=== PATIENT | male | born 1960 | race Caucasian/White ===

== ENCOUNTER 2024-08-09 12:35 | Inpatient (IN) | payer MEDICARE, SELFPAY ==
[2024-08-09] VITALS (8 sets, daily range): BP systolic 120–158; BP diastolic 67–78; PULSE 63–86; RESP 18–94; TEMP 36.8–38.2; O2SAT 93–96; BMI 38.5
--- NOTE | 2024-08-09 12:45 | EKG_ITS ---
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
--- NOTE | 2024-08-09 12:45 | XR_ITS ---
Examination: AP chest single view Technique one AP portable semiupright chest single view Exam date and time: July 09, 2025 1350 hours INDICATIONS: Shortness of breath beginning this week FINDINGS: Mild prominence cardiac contour Mild vascular congestion. No lobar pneumonia or pulmonary edema IMPRESSION: Mild vascular congestion
--- NOTE | 2024-08-09 12:45 | EDNOTE_ITS ---
ED General RME/HPI General Chief complaint: Weakness Stated complaint: WEAKNESS Time Seen by Provider: 08/09/24 12:44 Arrival date/time: 08/09/24 12:35 CC: Weakness, inability to walk x 4 days HPI ongoing for the past 2 weeks recently moved here from [place], has no PCP did not bring any medications. Denies chest pain shortness of breath Patient states he is a diabetic hypertension congestive heart failure, hyperlipidemia and has a heart attack in the past, is on Eliquis. Also takes spironolactone and Lasix. Related Data Allergies Allergy/AdvReac Type Severity Reaction Status Date / Time atorvastatin Allergy Verified 08/09/24 13:49 lisinopril Allergy Verified 08/09/24 13:49 sulfamethoxazole Allergy Verified 08/09/24 13:49 [From Bactrim] trimethoprim [From Bactrim] Allergy Verified 08/09/24 13:49 Review of Systems Review of Systems Narrative Review of Systems: GEN: No fever, no chills, no weight loss EYES: No discharge, no visual changes, no pain HEENT: No ear pain, no congestion, no sore throat PULM: No shortness of breath, no cough, no congestion CV: No chest pain, no dyspnea on exertion, no palpitations GI: No nausea, no vomiting, no diarrhea, no pain, no constipation : No frequency, no urgency, no dysuria MUSC/SKEL: No joint pain, no back pain SKIN: No rash PSYCH: No hallucinations, no depression HEME/LYMPH: No easy bleeding or bruising tendencies NEURO: + weakness, no headache ED Exam Narrative Physical exam: [General: Morbidly obese, disheveled, ill kempt, but not in any acute distress Head normocephalic HEENT: Within acceptable limits Neck is supple nontender Chest equal chest rise nontender to palpation Respiratory: Clear to auscultation no wheezes crackles or rubs CV: Rate rhythm is regular no murmurs rubs or clicks Abdomen is distended secondary to body habitus soft nontender no masses positive bowel sounds all 4 quadrants Back: No CVA tenderness no spinous process tenderness from cervical spine thoracic and lumbar spine Skin: Intact no petechiae rash induration ulceration or crepitus Extremities: Moving lower extremities weakly, significant pitting edema up to proximal lower leg bilaterally.. Moving upper extremities without complication Neuro: Awake alert oriented x3 Glascow coma 15 no focal deficits] Course Quality Measures none Orders Category Date Time Status Bedside Influenza A&B Antigen Test NOW Care 08/09/24 13:53 Completed EKG (ED ONLY) *Do not use* NOW Care 08/09/24 12:45 Completed EKG (ED Only) Stat Exams 08/09/24 12:45 Draft XR chest 1V Stat Exams 08/09/24 12:45 Completed B-Type Natriuretic Peptide Stat Lab 08/09/24 13:22 Completed CBC Stat Lab 08/09/24 13:22 Completed Comprehensive Metabolic Panel Stat Lab 08/09/24 13:22 Completed Drug Screen,Urine Stat Lab 08/09/24 13:32 Completed LDH (Lactate Dehydrogenase) Stat Lab 08/09/24 13:22 Completed Magnesium Stat Lab 08/09/24 13:22 Completed Partial Thromboplastin Time Stat Lab 08/09/24 13:22 Completed Prothrombin Time with INR Stat Lab 08/09/24 13:22 Completed Troponin I Stat Lab 08/09/24 13:22 Completed Urinalysis Stat Lab 08/09/24 13:32 Completed Vital Signs Vital signs: Vital Signs Temperature 100.8 F H 08/09/24 12:44 Pulse Rate 86 08/09/24 12:44 Respiratory Rate 19 08/09/24 12:44 Blood Pressure 137/72 H 08/09/24 12:44 Pulse Oximetry (%) 93 L 08/09/24 12:44 Oxygen Delivery Method Room Air 08/09/24 12:44 [facility] Patient data External records reviewed:: [facility] previous records and EMS form Clinical information provided by:: patient and EMS Social determinants that could affect healthcare access:: none Patient has the following chronic illnesses:: Diabetes hypertension hyperlipidemia CHF history of LA on Eliquis. How is presenting disease/condition affected by chronic disease/condition?: e xacerbated by Evaluation data The following diagnostics were reviewed and interpreted by me:: lab results, radiology exam(s) and EKG tracing(s) Lab and/or radiology exams considered but not ordered:: EKG performed at 1409 shows a ventricular rate of 61 QRS of 82 QTc of 378 A-fib with conduction suppression no old EKG for comparison. CBC shows no leukocytosis H&H of 11 and 36 no thrombocytopenia CMP shows a sodium 131 potassium of 4.2 chloride 99 CO2 22.9 BUN 29 creatinine 1.6 glucose of 228. Influenza A positive Urine is negative for UTI or other abnormal finding UDS is negative Chest x-ray as interpreted by me reveals a borderline CT ratio for potential cardiomegaly no acute or pronounced infiltrates or effusions identified. Interpretation Summary: ARIANA, with mild distribution of fluids including lower extremity edema. I believe this patient return to the ER in 12 hours if discharged in the same condition he is as he is not on ambulatory with significant edema in his lower extremities. This patient needs to be diuresed and his ARIANA remedied. The patient's case discussed with Dr. Whaley, resident for Dr. Oliveira who agrees to accept the patient for admission. Medications Medications considered but not ordered:: None Medication administrations:: None Consultations Consultation(s) initiated? (list below): No Diagnosis Differential Diagnosis ED Complaint MDM: ARIANA lower extremity Dame edema CHF pneumonia Most likely diagnosis given after review of the tests above:: ARIANA lower extremity edema Admission Indicated Admission indicated?: indicated Explain why admission is indicated or not indicated:: Further medical management Admission Request Was there a request for admission?: No Disposition Plan Disposition Plan: Admit Medical Decision Making Differential Diagnosis Differential Diagnosis: ARIANA lower extremity Dame edema CHF pneumonia Lab Data 08/09/24 13:22 08/09/24 13:22 Labs: Lab Results 08/09/24 08/09/24 Range/Units 13:22 13:32 WBC 9.1 (3.8-10.6) Thou/mm3 RBC 4.14 L (4.50-5.90) Miln/mm3 Hgb 11.4 L (13.5-16.0) g/dL Hct 36.0 L (41.0-53.0) % MCV 87 (80-100) fL MCH 27.5 (25.0-35.0) pg MCHC 31.7 (31.0-37.0) g/dl RDW Std Deviation 45.7 H (35.1-43.9) fL Plt Count 208 (140-440) Thou/mm3 Neut % (Auto) 84 H (37-80) % Lymph % (Auto) 6 L (10-50) % [place] % (Auto) 9 (0-12) % Eos % (Auto) 0 (0-10) % Baso % (Auto) 0 (0-2.5) % Neut # (Auto) 7.7 (1.8-7.7) Thou/mm3 Lymph # (Auto) 0.5 L (1.0-4.8) Thou/mm3 [place] # (Auto) 0.9 H (0.0-0.8) Thou/mm3 Eos # (Auto) 0.0 (0.0-0.5) Thou/mm3 Baso # (Auto) 0.0 (0.0-0.2) Thou/mm3 Immature Gran # (Auto) 0.03 H (0.00-0.00) Thou/mm3 Absolute Nucleated RBC 0.00 (0.00-0.00) Thou/mm3 Immature Gran % 0 (0-0) % Nucleated RBC % 0 (0) /100 WBC PT 11.7 (9.0-12.2) Seconds INR 1.1 (0.9-1.3) APTT 33.3 (22.0-36.0) Seconds Sodium 131 L (136-145) mMol/L Potassium 4.2 (3.4-5.1) mMol/L Chloride 99 (98-107) mMol/L Carbon Dioxide 22.9 (20.0-31.0) mMol/L Anion Gap 9 (7-16) BUN 29 H (9-23) mg/dL Creatinine 1.6 H (0.6-1.3) mg/dL Estim Creat Clear Calc 68.4 (>60) mL/min eGFR 48 L (60 - ) See Note BUN/Creatinine Ratio 18 (12-20) Ratio Glucose 228 H (74-106) mg/dL Calculated Osmolality 275 (275-295) Calcium 8.5 (8.3-10.6) mg/dL Corrected Calcium 8.6 (8.5-10.1) mg/dL Magnesium 2.3 (1.6-2.6) mg/dL Total Bilirubin 0.7 (0.3-1.2) mg/dL AST 17 (0-34) U/L ALT 12 (10-49) U/L Alkaline Phosphatase 43 L (46-116) U/L Lactate Dehydrogenase 256 H (120-246) U/L Troponin I 0.038 (0.0-0.045) ng/mL B-Natriuretic Peptide 275 H (0-100) pg/mL Total Protein 6.9 (5.7-8.2) gm/dL Albumin 3.9 (3.4-4.8) gm/dL Globulin 3.0 (2.3-3.5) gm/dL Albumin/Globulin Ratio 1.3 (1.2-2.2) Ur Collection Type Clean Catch Urine Color Yellow (Lt Yel-Yel) Urine Clarity Clear (Clear/Hazy) Urine pH 6.0 (5.0-7.0) Ur Specific [place] 1.025 (1.001-1.035) Urine Protein Trace (Neg - Trace) Urine Glucose (UA) 4+ A (Negative) Urine Ketones Negative (Negative) Urine Blood Negative (Negative) Urine Nitrite Negative (Negative) Urine Bilirubin Negative (Negative) Urine Urobilinogen (Auto) Negative (0.0-1.0) mg/dL Ur Leukocyte Esterase Negative (Negative) Urine RBC 3 (0-3) /hpf Urine WBC 1 (0-5) /hpf Ur Squamous Epith Cells < 1 (0-5) /hpf Urine Bacteria Rare (None) Urine Opiates Screen Negative (Negative) Urine Fentanyl Screen Negative (Negative) Ur Barbiturates Screen Negative (Negative) U Amphetamin/Meth Scrn Negative (Negative) U Benzodiazepines Scrn Negative (Negative) U Cocaine Metab Screen Negative (Negative) U Marijuana (THC) Screen Negative (Negative) Discharge Plan Plan Patient Disposition: Other Care w/in Hosp ([facility]) Patient condition on transfer: Stable Prescriptions/Referrals Referrals: Mode Guerrero MD [Physician] - In 1 week No Primary/Family,Physician [Primary Care Provider] - In 1 week Problem List Clinical Impression: ARIANA (acute kidney injury), Bilateral leg edema, Physical deconditioning, Obesity, Hyperglycemia due to diabetes mellitus Patient/Caregiver Discharge Instructions Print Language: Setswana Stand Alone Forms: Naida Award Info., Patient Portal Info Letter MARISEL/MONET Supervising Physician PA/MONET Supervising Physician: Priyank Dias ENP
[2024-08-09 13:32] LABS: Basophils % (Auto) 0 % (0-2.5); Eosinophils % (Auto) 0 % (0-10); Hemoglobin 11.4 g/dL (13.5-16.0); Immature Granulocytes % (Auto) 0 % (0-0); Immature Granulocytes Auto 0.03 Thou/mm3 (0.00-0.00); Lymphocytes # (Auto) 0.5 Thou/mm3 (1.0-4.8); Lymphocytes % (Auto) 6 % (10-50); Mean Corpuscular HGB Conc 31.7 g/dl (31.0-37.0); Mean Corpuscular Hemoglobin 27.5 pg (25.0-35.0); Mean Corpuscular Volume 87 fL (80-100); Monocytes # (Auto) 0.9 Thou/mm3 (0.0-0.8); Monocytes % (Auto) 9 % (0-12); Neutrophils # (Auto) 7.7 Thou/mm3 (1.8-7.7); Neutrophils % (Auto) 84 % (37-80); Nucleated Red Blood Cell % 0 /100 WBC (0); Platelet Count 208 Thou/mm3 (140-440); RDW Standard Deviation 45.7 fL (35.1-43.9); Red Blood Count 4.14 Miln/mm3 (4.50-5.90); White Blood Count 9.1 Thou/mm3 (3.8-10.6)
[2024-08-09 13:47] LABS: INR 1.1 (0.9-1.3); Partial Thromboplastin Time 33.3 Seconds (22.0-36.0); Prothrombin Time 11.7 Seconds (9.0-12.2)
[2024-08-09 13:48] LABS: B-Type Natriuretic Peptide 275 pg/mL (0-100)
[2024-08-09 14:01] LABS: Collection Type, Urine Clean Catch
[2024-08-09 14:12] LABS: Alanine Aminotransferase 12 U/L (10-49); Albumin, Serum 3.9 gm/dL (3.4-4.8); Albumin/Globulin Ratio 1.3 (1.2-2.2); Alkaline Phosphatase 43 U/L (46-116); Anion Gap 9 (7-16); Aspartate Amino Transferase 17 U/L (0-34); BUN/Creatinine Ratio 18 Ratio (12-20); Bilirubin,Total 0.7 mg/dL (0.3-1.2); Blood Urea Nitrogen 29 mg/dL (9-23); Calcium 8.5 mg/dL (8.3-10.6); Calcium (Corrected) 8.6 mg/dL (8.5-10.1); Carbon Dioxide 22.9 mMol/L (20.0-31.0); Chloride 99 mMol/L (98-107); Creatinine (Component) 1.6 mg/dL (0.6-1.3); Estimated Creatinine Clearance 68.4 mL/min (>60); Glucose 228 mg/dL (74-106); LDH (Lactate Dehydrogenase) 256 U/L (120-246); Magnesium 2.3 mg/dL (1.6-2.6); Osmolality,Calculated 275 (275-295); Potassium 4.2 mMol/L (3.4-5.1); Sodium 131 mMol/L (136-145); Total Protein 6.9 gm/dL (5.7-8.2); Troponin I 0.038 ng/mL (0.0-0.045); eGFR 48 See Note
[2024-08-09 14:14] LABS: Bacteria,Urine Rare; Bilirubin,Urine Negative (Negative); Blood,Urine Negative (Negative); Clarity,Urine Clear (Clear/Hazy); Color,Urine Yellow (Lt Yel-Yel); Glucose, Urine 4+ (Negative); Ketones,Urine Negative (Negative); Leukocyte Esterase,Urine Negative (Negative); Nitrite,Urine Negative (Negative); Protein,Urine Trace (Neg - Trace); RBC,Urine 3 /hpf (0-3); Specific Gravity,Urine 1.025 (1.001-1.035); Squamous Epithelial Cell,Urine < 1 /hpf (0-5); Urobilinogen,Urine Negative mg/dL (0.0-1.0); WBC,Urine 1 /hpf (0-5)
[2024-08-09 14:16] LABS: Amphetamine/Methamp Scrn,U Negative (Negative); Barbiturate Screen,Urine Negative (Negative); Benzodiazepines Screen,Urine Negative (Negative); Benzoylecgonine Screen, Ur Negative (Negative); Fentanyl Screen,Urine Negative (Negative); Opiate Screen,Urine Negative (Negative); THC Screen,Urine Negative (Negative)
--- NOTE | 2024-08-09 15:25 | ECHO_ITS ---
Transthoracic Echo Report Ht (in): 74 Wt (lb): 300 Exam Location: Portable Status: Emergency Enrollment Services Dean: Christina Schultz Indications: Procedure Performed: BP: 145 / 71 HR: 71 Rhythm: Atrial fibrillation Technical Quality: Technically difficult study MEASUREMENTS (Male / Female) Normal Values 2D ECHO LV Diastolic Diameter PLAX 5.1 cm 4.2 - 5.9 / 3.9 - 5.3 cm LV Systolic Diameter PLAX 3.6 cm IVS Diastolic Thickness 1.3 cm 0.6 - 1.0 / 0.6 - 0.9 cm LVPW Diastolic Thickness 1.3 cm 0.6 - 1.0 / 0.6 - 0.9 cm LV Relative Wall Thickness 0.5 LVOT Diameter 2.2 cm Ascending Aorta Diameter 3.2 cm DOPPLER AV Peak Velocity 263.8 cm/s AV Peak Gradient 27.8 mmHg AV Mean Gradient 11.0 mmHg AV Velocity Time Integral 40.0 cm LVOT Peak Velocity 107.0 cm/s LVOT Peak Gradient 4.6 mmHg LVOT Velocity Time Integral 18.7 cm LVOT Cardiac Index 1858.1 cm?/min?m? AV Area Cont Eq vti 1.8 cm? AV Area Cont Eq pk 1.5 cm? MV Peak Velocity 226.0 cm/s MV Peak Gradient 20.4 mmHg MV Mean Velocity 118.5 cm/s MV Mean Gradient 7.0 mmHg MV Area PHT 4.0 cm? MR Peak Velocity 652.0 cm/s MR Peak Gradient 170.0 mmHg Mitral E Point Velocity 117.0 cm/s Mitral A Point Velocity 1.1 cm/s Mitral E to A Ratio 102.6 LV E' Lateral Velocity 16.8 cm/s Mitral E to LV E' Lateral Ratio 7.0 LV E' Septal Velocity 13.5 cm/s Mitral E to LV E' Septal Ratio 8.7 FINDINGS Left Ventricle Normal left ventricular size, systolic function with no obvious regional wall motion abnormalities. Mild LVH. The ejection fraction is visually estimated at 55-60%. Right Ventricle The right ventricle is normal in size and systolic function. Left Atrium The left atrium is normal by two-dimensional, color flow and Doppler imaging with no structural abnormalities, no thrombus formation present. Right Atrium The right atrium is normal by two-dimensional imaging, color flow and Doppler imaging with no struct ural abnormalities, no thrombus formation present. Atrial Septum The interatrial septum appears normal with no evidence of a shunt. Aorta The aorta is normal by two-dimensional, color flow and Doppler interrogation. Mitral Valve The mitral valve is normal by two-dimensional, color flow and Doppler interrogation. There is mild m itral valve regurgitation. Aortic Valve The aortic valve is trileaflet. Mild stenosis, max 33mmHg, vmax 2.8m/s. There is mild aortic valve regurgitation. Tricuspid Valve The tricuspid valve is normal by two-dimensional, color flow and Doppler interrogation. There is tra ce tricuspid valve regurgitation. Pulmonic Valve The pulmonic valve is not well visualized. There is no significant pulmonic valve regurgitation. Vessels The pulmonary artery appears normal. The inferior vena cava pulmonary and hepatic veins appear dilat ed. Pericardium The pericardium is normal by two-dimensional imaging. There is no significant pericardial effusion. CONCLUSIONS Indication: CHF Poor and suboptimal images due to body habitus. Limited images. Normal LV size and function. Mild LVH. Estimated EF 55-60%. Cannot determine diastolic function due to AFib. Mildly dilated RV and normal RV function. Could not visualize TR or tricuspid valve well. Unable to estimate RVSP and PAH. All valves poorly visulaized. Mild AV stenosis, max gradient 33mmHg, vmax 2.8m/s. Mild AI and Mild A I IVC dilated. Nacho Yoon (Electronically Signed) Final Date: 10 August 2024 15:25
[2024-08-09] MEDS: PANTOPRAZOLE INJ 40 MG VIAL IVP (15:52)
[2024-08-09] MEDS: FUROSEMIDE INJ 10 MG/ML 4ML VIAL 40 MG IVP (15:59)
--- NOTE | 2024-08-09 16:14 | ESHP_ITS ---
<Statement entered by Daniel Cox MD - 08/09/24 16:39> This patient is a 64-year-old male with past medical history of depression with psychotic features, hypertension, hyperlipidemia,? CHF, A-fib on Eliquis, diabetic presented to the ED today after recently moving from [place] with chief complaint of weakness and bilateral lower extremity pitting edema and cough with wheezing. Patient was found to have influenza pneumonia and was started on Tamiflu. Initial vitals were stable. Patient was saturating well on 4 L NC. Patient has gross bilateral lower extremity edema. Labs revealed hemoglobin and white count stable. Blood sugars were elevated. Patient also had possible ARIANA although we do not have a baseline creatinine BUN 29 and creatinine 1.6. Sodium 131. Troponin I was 0.038. EKG showed A-fib rate controlled. Patient is admitted for CHF and influenza pneumonia workup. Patient with continued on Lasix 40 mg IV once daily, home medications were reconciled for depression. Eliquis is on hold given concern for pulmonary nodules most likely seen on chest x-ray however chest x-ray report did not document that. Will likely workup with CT chest tomorrow once kidney functions improves. Cocci IgM was ordered. Sputum cultures were ordered. Patient will be receiving breathing treatments Mucinex DM. Chest PT has been ordered. All labs and orders were reviewed. I saw and examined the patient, and I agree with current management stated by Dr Trudy MD,PGY1. Plan of care was discussed with the attending physician and resident physician. Disclaimer: Despite multiple revisions, due to the dictation software being used, the document bellow may not be free of grammatical errors including phonetic/typographic errors. However, this does not deter from our commitment to providing health care in the patient's best interest in mind. Dr. Brooke MD, PGY 2 Documentation for date of: 08/09/24 HPI History of Present Illness History of present illness: CC: cough and SOB Patient is a 64-year-old male with a past medical history of hypertension, hyperlipidemia, CAD, diabetes mellitus type 2 insulin-dependent, CHF (unknown ejection fraction), atrial fibrillation, history of seizures, who presented to the emergency room with acute increasing dyspnea and increasing cough. Patient stated that he has been having increasing pleuritic chest pain secondary to productive cough. Patient stated his cough is productive. Come into the emergency room today after being unable to reach the restroom because of increasing shortness of breath. Patient denied typically here with increasing wheezing. Patient denied any sick contacts. Increased perspiration. Increased orthopnea. Increasing shortness of breath. Negative paroxysmal nocturnal orthopnea. Positive for diarrhea. Increased bilateral swelling. History of BPH. History of depression. Admitted on 08/09/2024 for CHF exacerbation and influenza A. ER course: Patient's vital in the emergency room and temperature of 100.8, non septic with normal respiratory and heart rate. Blood pressure within normal range 137/72. ARIANA noted BUN 29, creatinine 1.6, GFR 48. Hyperglycemic to 28. WBC count 9.1. Anemia noted, normal hemoglobin 11.4, and hematocrit 36.0. Lactate dehydrogenase 256 but calcium within normal range. Troponin slightly elevated 0.038. BNP 275. EKG A-fib with old OH. UA positive for glucose. No medication given in ER. PMH: -Diabetes Mellitus Type 2 insulin dependent -Hypertension -Hyperlipidemia -CAD/OH -CHF Lasix 40 IV push daily added, currently holding home medication of spironolactone given unknown ejection fraction. -Atrial fibrillation on Eliquis (currently holding given possible CT-guided biopsy for nodules noted on chest x-ray) -COPD, recent diagnosis no medication on board -History of seizures -History of depression -BPH -Spinal Stenosis s/p surgery Past Surgical History: -Appendectomy -Disc repair secondary to spinal stenosis Home Medication: -Rosuvastin ? -Losartan 25 mg -Lasix 40 mg QDay -Spironolactone -Lantus 12 units -Januvia -Ozemic 0.5 sub q once a week -Jardiance 25 mg once a day -Tamsulin 0.4 -Risperidone 6 mg HS -Furosemide 40 mg Qday -Eliquis 5 mg Qday -Mirtazapine 45 mg HS -Paroxetine 40 mg PO -Topiramate 50 g HS Social History: [id number] history, smoked for 20 years about 2 packs/day, quit 15 years ago Denied alcohol use Denied illicit drug use Allergies: Atorvastatin Lisinopril Bactrim Code Status: Full code Review of Systems Review of Systems Narrative Review of Systems: General appearance: YES weight loss secondary to ozemic us, NO fatigue, YES weakness, NO fever, NO chills, NO night sweats, YES cough Skin: NO rash, NO itching, NO sores, NO moles HEENT: NO Trauma, NO nausea, NO vomiting, NO visual changes, NO blurry vision, NO double vision, NO tinnitus, NO vertigo, NO ear discharge, NO rhinorrhea, NO stuffiness, NO sneezing, NO allergy, NO epistaxis. NO Hoarseness, NO sore throat, NO swollen neck. Cardiac: NO Palpitations, YES dyspnea on exertion, YES orthopnea, NO paroxysmal nocturnal dyspnea, YES edema Respiratory: YES Shortness of Breath, YES Wheezing, YES Cough, NO Sputum, NO hemoptysis GI:NO appetite, NO nausea, NO vomiting, NO dysphagia, NO changes in bowel frequency, NO stool color, NO diarrhea, NO constipation, NO hemetemesis, NO hemorrhoids, NO melena, NO hematechezia, NO abdominal pain, NO jaundice Renal: NO frequency, NO hesitancy, NO urgency, NO hematuria, NO nocturia, NO incontinence MSK: NO muscle weakness, NO gout, NO arthritis, NO muscle stiffness Neuro: NO headaches, NO tremors, NO weakness, NO paralysis, NO seizures, NO loss of consciousness, NO numbness. Hem: NO anemia, NO easy bruising/bleeding, NO petechiae, NO purpura Endo: NO heat/cold intolerance, NO excessive sweating, NO polyuria, NO polydipsia, NO polyphagia, NO thyroid problems, YES diabetes Pysch: NO mood, NO anxiety, NO depression Exam Vital Signs Temp Pulse Resp BP Pulse Ox O2 Del Method 98.3 F 68 19 158/76 H 94 L Room Air 08/09/24 14:19 08/09/24 15:59 08/09/24 14:19 08/09/24 15:59 08/09/24 14:19 08/09/24 14:19 Narrative Exam General Appearance: Alert & Oriented X3, well-nourished Male who is lying in bed in no acute distress, rash noted near supra-pubic region, macular, non-puritic HEENT: Skull symmetrical and atraumatic. Conjunctivae pink and moist. Pupils equal, round, reactive to light and accommodation (PERRL). External ear without lesion or discharge. Straight, nares patient, mucosa pink, no discharge. Cardio: Normal Rate and Irregular with S1 and S2 heart sounds. Possible blowing murmur noted. No bruits on carotid auscultation. Edema +3 bilateral. NO JVD noted. Lungs: Symmetric expansion. Chest and back non-tender. Decreased breath sounds vesicular with crackles and Increased wheezing Abdomen: Non-tender, Non-distended, Normal Reactive Bowel Sounds Neuro: Alert, cooperative, oriented to person, place, and time. Speech clear. CN grossly intact. Upper motor strength 5/5 and Lower motor strength 5/5. Sensation intact. Results: Labs 08/09/24 13:22 08/09/24 13:22 Labs: Short CBC 08/09/24 Range/Units 13:22 WBC 9.1 (3.8-10.6) Thou/mm3 Hgb 11.4 L (13.5-16.0) g/dL Hct 36.0 L (41.0-53.0) % Plt Count 208 (140-440) Thou/mm3 BMP 08/09/24 13:22 Sodium 131 L Potassium 4.2 Chloride 99 Carbon Dioxide 22.9 BUN 29 H Creatinine 1.6 H Glucose 228 H Calcium 8.5 Cardiac Enzymes 08/09/24 Range/Units 13:22 Troponin I 0.038 (0.0-0.045) ng/mL Liver Function 08/09/24 Range/Units 13:22 Total Bilirubin 0.7 (0.3-1.2) mg/dL AST 17 (0-34) U/L ALT 12 (10-49) U/L Alkaline Phosphatase 43 L (46-116) U/L Albumin 3.9 (3.4-4.8) gm/dL Urine 08/09/24 Range/Units 13:32 Urine Color Yellow (Lt Yel-Yel) Urine Clarity Clear (Clear/Hazy) Urine pH 6.0 (5.0-7.0) Ur Specific [place] 1.025 (1.001-1.035) Urine Protein Trace (Neg - Trace) Urine Glucose (UA) 4+ A (Negative) Quality Measures Quality Measures none Medications Home Medications and Allergies Allergies Allergy/AdvReac Type Severity Reaction Status Date / Time atorvastatin Allergy Verified 08/09/24 13:49 lisinopril Allergy Verified 08/09/24 13:49 sulfamethoxazole Allergy Verified 08/09/24 13:49 [From Bactrim] trimethoprim [From Bactrim] Allergy Verified 08/09/24 13:49 Visit Medications Acetaminophen (Acetaminophen 325 Mg Tablet) 650 mg PO Q6H PRN PRN Reason: Mild Pain 1-3 or Fever >100.4 Stop: 09/08/24 15:19 Hydrocodone Bitart/Acetaminophen (Hydrocodone/Apap 5/325 Tablet) 1 tab PO Q4HR PRN PRN Reason: PAIN SCALE 4-6 (Moderate Stop: 08/14/24 15:19 Albuterol/Ipratropium (Albuterol/Ipratropium (Duoneb) Rt Aspen 3 Ml Nebu) 3 ml INH Q6HRRT ASHWIN Stop: 09/08/24 18:59 Amlodipine Besylate (Amlodipine Besylate 5 Mg Tablet) 5 mg PO QDAY ASHWIN Stop: 09/09/24 08:59 Dextrose (Dextrose 50%-Water Inj 50 Ml Syringe) 25 ml IV Q15MIN PRN PRN Reason: BG 50-70 responsive npo pt Stop: 09/08/24 15:30 Dextrose (Dextrose 50%-Water Inj 50 Ml Syringe) 50 ml IV Q15MIN PRN PRN Reason: BG <50 OR BG <70 & pt unresponsive Stop: 09/08/24 15:30 Furosemide (Furosemide Inj 10 Mg/Ml 4ml Vial) 40 mg IVP QDAY ASHWIN Stop: 09/08/24 15:44 Last Admin: 08/09/24 15:59 Dose: 40 mg Glucagon (Glucagon Inj 1 Mg Vial) 1 mg IM Q15MIN PRN PRN Reason: BG <70, and no IV access Guaifenesin/Dextromethorphan (Guaifenesin/Dm Tablet) 1 each PO Q4HR PRN PRN Reason: COUGH Stop: 09/08/24 15:18 Insulin Glargine (Insulin Glargine (Lantus) 5 Unit/0.05 Ml (Per 5 Units)) 12 unit SC HS [facility] Stop: 09/08/24 20:59 Insulin Human Lispro (Insulin Lispro (Admelog) 1 Unit/0.01 Ml Unit) 0 unit SC [facility]; Protocol Stop: 09/08/24 16:59 Mirtazapine (Mirtazapine 15 Mg Tablet) 45 mg PO HS [facility] Stop: 09/08/24 20:59 Ondansetron HCl (Ondansetron Inj 2 Mg/Ml Inj 2 Ml) 4 mg IV Q6H PRN; Protocol PRN Reason: NAUSEA OR VOMITING Stop: 09/08/24 15:19 Oseltamivir Phosphate (Oseltamivir 75 Mg Capsule) 75 mg PO BID ASHWIN Stop: 08/13/24 21:01 Pantoprazole Sodium (Pantoprazole Inj 40 Mg Vial) 40 mg IVP QDAY ASHWIN Stop: 09/08/24 15:29 Last Admin: 08/09/24 15:52 Dose: 40 mg Paroxetine HCl (Paroxetine Hcl 10 Mg Tablet) 40 mg PO HS ASHWIN Stop: 09/08/24 20:59 Risperidone (Risperidone 1 Mg Tablet) 6 mg PO HS ASHWIN Stop: 09/08/24 20:59 Tamsulosin HCl (Tamsulosin Hcl 0.4 Mg Capsule) 0.4 mg PO QDAY ASHWIN Stop: 09/08/24 15:59 Discontinued Medications Apixaban (Apixaban 2.5 Mg Tablet) 5 mg PO BID ASHWIN Stop: 09/08/24 20:59 Heparin Sodium (Porcine) (Heparin Sod Inj 5000 Unit/Ml Vial) 5,000 unit SC Q12HR ASHWIN Stop: 08/23/24 20:59 Sodium Chloride (Sodium Chloride Rt 10% 15 Ml Nebu) 5 ml INH X1 ONE Stop: 08/09/24 15:21 Assessment & Plan Plan #Influenza A Patient arrived with positive influenza A, denied sick contacts, increased productive cough. Superimposed gram-positive bacteria cannot be ruled out. Follow-up with symptoms tomorrow may need antibiotics. Diagnostics: -Cxr (08/09/2023): Mild vascular congestion, no lobar pneumonia or pulmonary edema, mild prominence cardiac contour -EKG Atrial Fibrillation, Lateral OH (intermediate age) Q waves noted -WBC 9.1 -Lactate Deh 256, Corrected Ca 8.6 Plan -Tamiflu 75 mg p.o. twice daily (no need for renally dosing given creatinine clearance greater than 30.) -MRSA screen -Sputum culture -Chest physio -DuoNebs -Cough syrup as needed #CHF exacerbation in the setting of flu #Troponemia Patient has a past medical history of CHF likely secondary to ischemic cardiomyopathy given history of OH. PE less likely wells criteria 1.5. Less likely secondary to OH but can not be ruled out given past medical history. NO ST Elevation noted. Troponin 0.038. No chest pain. Diagnostics: EKG: Atrial Fibrillation -BNP 275 -Troponin 0.038 NYHA Class: IV Plan: -Lasix 40 IVP Qday -Follow up Troponin at 8:00 PM -Holding home Spironolactone until echo. -Echo -TSH -Lipid Panel -A1c -K>4 and Mg >2 -Fluid Restriction and Sodium Restriction 2 g per day -Strict In and Outs, consider [place] if needed. -cautions oxygen support given COPD history 88-92% goal -Daily Weights, Strict Ins and Outs, Fluid Striction (1800 ml), Sodium Restriction 2 grams per day -Wound Care-for legs and rash noted on abdomen #ARIANA #Hypertension Patient has a past medical history of hypertension on losartan. Patient stated his blood pressure is usually well-controlled in the 130s for systolic. Given ARIANA currently holding losartan. ARIANA likely prerenal given BUN/creatinine ratio is 18 just slightly under 20. No history of previous CMP on file. Elevated creatinine 1.6 likely reflecting an ARIANA. Plan -Fluid resuscitation given acute CHF exacerbation -Amlodipine 5 mg Qday -Holding Losartan 25 mg home medication -Avoid nephrotoxins -Renally dose medication -Follow-up on morning labs with BUN/creatinine #Atrial fibrillation, rate controlled Patient has a past medical history of atrial fibrillation, currently rate controlled. Heart rate 86. No beta-blockers noted or calcium channel ninfa noted on medication review. Patient is out of state. Pending echo. Patient takes Eliquis at home 5 mg twice daily. Currently holding Eliquis given the possibility of CT-guided biopsy for possible pulmonary nodules. CHADVASC 4, STroke risk HAS BLED 1 point Plan -Holding home Eliquis 5 mg twice daily for possible CT-guided biopsy -Heparin every 12 subQ DVT prophylaxis -Monitor electrolytes -Telemetry #COPD #History of Smoking Patient has a past medical history of smoking, [id number] history. Smoked approximately 2 packs/day for about 20 years. Quit 15 years ago. Possible nodules noted on physical exam. Malignancy cannot be ruled out versus cocci versus sarcoidosis. Diagnostics: -lactate Dehydrogensase 256 Plan -DuoNebs scheduled -Cocci -Oxygen goal of 88-92% -Holding Eliquis for possible biopsy -Consider Tumor markers. -Follow-up with Dr. Kwok for possible CT biopsy. #Diabetes mellitus type 2 insulin-dependent Patient has a past medical history of diabetes mellitus type 2 Home medication include Lantus 12 units, Januvia (Sitagliptin), Jardiance (Empagliflozin), and Ozempic. Patient stated he has lost about 120 lbs. Previous weight was 400->320-->current weight 320 lbs. Plan Lantus 12 units at bedtime Sliding scale ACHS A1c low carb consistent #History of CAD #history of hyperlipidemia Has a past medical history of hyperlipidemia with a previous history of OH approximately 5 years ago. Patient takes rosuvastatin 40 mg at bedtime. But not found in the formulary in the system. Patient has an allergy to atorvastatin. Plan -Added rosuvastatin as a nonformulary, if patient can bring in and please administer. -Lipid panel a.m. #History of depression Patient has a past medical history of depression Home medication includes risperidone 6 mg at bedtime, mirtazapine 45 mg at bedtime, and paroxetine 40 mg at bedtime Plan -Restart risperidone 6 mg at bedtime -Restart mirtazapine 40 mg at bedtime -Restart paroxetine 40 mg at bedtime #History of seizures Patient has a past medical history of seizures, last seizure was several years ago and patient cannot recall but has been stable. Home medication topiramate 50 mg HS. Plan -topiramate 50 mg HS #Normocytic Anemia Likely secondary to chronic disease. Diagnostics: Hgb 11.4, Hct 36.0 Plan -Iron Panel -Ferritin -B12 #Mild Hyponatremia Hypo-osmolar, Hypervolemic Likely secondary to CHF exacerbation Diagnostics: Na 131-->corrected 133 Plan -Monitor Na -1800 fluid restricted Health Maintenance: Disp: Pt is currently admitted to floors for further management of Flu and CHF exacerbation, awaiting echo and sputum FEN: Low carb consistent, fluid restricted 1800, sodium restricted 2 gm DVT: on subQ heparin Code: Full Code - The patient's plan was discussed with attending Dr. Oliveira and senior residents Dr. Brooke Yates MD PGY1 Internal Medicine Attending Provider Attestation/Addendum I have discussed and was present for the essential components of the history, physical examination, diagnosis, and treatment plan with the resident. I agree with the patient's care as documented by the resident and amended herein by me. Carter Oliveira DO.
[2024-08-09] MEDS: OSELTAMIVIR 75 MG CAPSULE PO ×2 (16:15→20:14)
[2024-08-09] MEDS: TAMSULOSIN HCL 0.4 MG CAPSULE PO (16:15)
[2024-08-09] MEDS: INSULIN LISPRO (AdmeLOG) 1 UNIT/0.01 ML UNIT SC ×2 (17:54→20:20)
[2024-08-09] MEDS: ALBUTEROL/IPRATROPIUM (Duoneb) RT SOL 3 ML NEBU INH (18:18)
--- NOTE | 2024-08-09 18:45 | PC.NURSE ---
Report given to Christina patel on tele floor. nurse will resume care. pt stable for transport.
[2024-08-09] MEDS: risperiDONE 1 MG TABLET 6 MG PO (20:13)
[2024-08-09] MEDS: MIRTAZAPINE 15 MG TABLET 45 MG PO (20:13)
[2024-08-09] MEDS: TOPIRAMATE 25 MG TABLET 50 MG PO (20:13)
[2024-08-09] MEDS: PARoxetine HCL 10 MG TABLET 40 MG PO (20:13)
[2024-08-09] MEDS: INSULIN GLARGINE (Lantus) 5 UNIT/0.05 ML (PER 5 UNITS) 12 UNIT SC (20:20)
[2024-08-09] MEDS: ROSUVASTATIN 20 MG PO (20:31)
[2024-08-09 20:45] LABS: Troponin I 0.059 ng/mL (0.0-0.045)
[2024-08-10] VITALS (77 sets, daily range): BP systolic 47–283; BP diastolic 39–270; PULSE 47–82; RESP 0–59; TEMP 36–37.3; O2SAT 50–98; BMI 44.4; BMI 44.1
[2024-08-10] MEDS: ALBUTEROL/IPRATROPIUM (Duoneb) RT SOL 3 ML NEBU INH ×5 (00:33→19:54)
--- NOTE | 2024-08-10 01:48 | PC.RT ---
08/10/2024 @ 0033: pt has moist productive cough, but cannot get it out into the cup once it's in his mouth so he swallows it. RT informed patient of sputum induction process. Pt wishes to have more time to get it out in the sputum sample cup on his own.
[2024-08-10 05:59] LABS: Basophils % (Auto) 0 % (0-2.5); Eosinophils % (Auto) 0 % (0-10); Hematocrit 36.6 % (41.0-53.0); Hemoglobin 11.9 g/dL (13.5-16.0); Immature Granulocytes % (Auto) 0 % (0-0); Immature Granulocytes Auto 0.04 Thou/mm3 (0.00-0.00); Lymphocytes # (Auto) 0.6 Thou/mm3 (1.0-4.8); Lymphocytes % (Auto) 7 % (10-50); Mean Corpuscular HGB Conc 32.5 g/dl (31.0-37.0); Mean Corpuscular Hemoglobin 28.4 pg (25.0-35.0); Mean Corpuscular Volume 87 fL (80-100); Monocytes # (Auto) 1.1 Thou/mm3 (0.0-0.8); Monocytes % (Auto) 12 % (0-12); Neutrophils # (Auto) 7.5 Thou/mm3 (1.8-7.7); Neutrophils % (Auto) 81 % (37-80); Nucleated Red Blood Cell % 0 /100 WBC (0); Platelet Count 185 Thou/mm3 (140-440); RDW Standard Deviation 45.9 fL (35.1-43.9); Red Blood Count 4.19 Miln/mm3 (4.50-5.90); White Blood Count 9.3 Thou/mm3 (3.8-10.6)
[2024-08-10 06:01] LABS: Glucose Estimated Average 157 mg/dL (80-131); Hemoglobin A1C 7.1 % Hgb (4.8-6.0)
[2024-08-10 06:17] LABS: Vitamin B12 326 pg/mL (211-911)
[2024-08-10 06:27] LABS: Alanine Aminotransferase 10 U/L (10-49); Albumin, Serum 4.1 gm/dL (3.4-4.8); Albumin/Globulin Ratio 1.4 (1.2-2.2); Alkaline Phosphatase 41 U/L (46-116); Anion Gap 12 (7-16); Aspartate Amino Transferase 17 U/L (0-34); BUN/Creatinine Ratio 21 Ratio (12-20); Bilirubin,Total 0.7 mg/dL (0.3-1.2); Blood Urea Nitrogen 34 mg/dL (9-23); Calcium 8.6 mg/dL (8.3-10.6); Calcium (Corrected) 8.6 mg/dL (8.5-10.1); Carbon Dioxide 22.2 mMol/L (20.0-31.0); Cardiac Risk Estimate 2.6 RATIO (4.0-6.7); Chloride 99 mMol/L (98-107); Cholesterol 83 mg/dL (132-200); Creatinine (Component) 1.6 mg/dL (0.6-1.3); Globulin 2.9 gm/dL (2.3-3.5); Glucose 157 mg/dL (74-106); HDL Cholesterol 32 mg/dL (40-60); LDL Cholesterol,Calculated 30 mg/dL (0-130); Magnesium 2.3 mg/dL (1.6-2.6); Osmolality,Calculated 276 (275-295); Phosphorous 5.2 mg/dL (2.4-5.1); Potassium 4.2 mMol/L (3.4-5.1); Sodium 133 mMol/L (136-145); Triglycerides 106 mg/dL (30-150); eGFR 48 See Note
[2024-08-10 07:13] LABS: Ferritin 86 ng/mL (10.5-307.3); Total Iron Binding Capacity 280 mcg/dL (250-425)
[2024-08-10 07:22] LABS: Iron 16 mcg/dL (65-175); Percent Iron Saturation 5 % (20-55); Unsaturated Iron Binding 264 (225-295)
[2024-08-10 07:54] LABS: Free T4 (Free Thyroxine) 1.49 ng/dL (0.89-1.76)
[2024-08-10] MEDS: INSULIN LISPRO (AdmeLOG) 1 UNIT/0.01 ML UNIT SC ×3 (07:56→18:47)
[2024-08-10] MEDS: FERROUS SULF 325 MG TABLET PO (09:24)
[2024-08-10] MEDS: SEVELAMER CARBONATE 800 MG TABLET PO (09:24)
[2024-08-10] MEDS: PANTOPRAZOLE INJ 40 MG VIAL IVP (09:24)
[2024-08-10] MEDS: FUROSEMIDE INJ 10 MG/ML 4ML VIAL 40 MG IVP ×2 (09:24→11:44)
[2024-08-10] MEDS: OSELTAMIVIR 75 MG CAPSULE PO ×2 (09:24→21:28)
[2024-08-10] MEDS: TAMSULOSIN HCL 0.4 MG CAPSULE PO (09:25)
[2024-08-10] MEDS: amLODIPine BESYLATE 5 MG TABLET PO (09:25)
--- NOTE | 2024-08-10 10:17 | PC.SS ---
Patient Andrew Bella is a 64 Year old male admitted for Increased SOB. SS met with patient at bedside to discuss discharge plan. Patient reports he just moved from [place] on Friday. Patient lives with his Roommate, Wyatt Wallace who reports is his surrogate decision maker [phone]. Patient reports that prior to admission he utilized a Walker and a wheelchair to assist with ambulation. Patient is able to complete ADL's independently. Patient reports pharmacy of choice is [facility] in [place]. Patient would like to be evaluated by PT before he decides on disposition. SS will follow up with patient once PT evaluates him. Next of kin: friend Wyatt Wallace Discharge Plan: Pending
--- NOTE | 2024-08-10 10:25 | PC.SS ---
SS follow up note; Patient is pending PT eval to determine discharge plan.
--- NOTE | 2024-08-10 10:43 | ESPR_ITS ---
<Statement entered by Daniel Cox MD - 08/10/24 14:16> Patient was seen and examined at the bedside this morning. He was hypoxic in the setting in 84 on 8 L NC therefore rapid response was called for hypoxia. Patient was having increased respiratory rate and had a fever spike this morning. Patient is here for CHF and ARIANA with elevated troponin I. Stat chest x-ray showed moderate vascular congestion with elevation of troponin I therefore will follow-up with troponin every 6 hourly. Additionally, EKG showed some ST-T changes with trop I elevation with underlying hx of CAD/MA no stents were placed,HTN,HLD and T2DM therefore we consulted cardiology,Dr Yoon. Patient was given extra dose of Lasix and was started on Lasix 40 mg IV twice daily, strict HAILEE's and fluid restriction. ABGs showed hypoxic hypercapnic respiratory acidosis with pH 7.27, pCO2 49 and pO2 60. Respiratory therapist placed the patient on BiPAP. We started ceftriaxone and azithromycin, ordered breathing treatments, Solu-Medrol ordered blood cultures and lactic acid. Kidney functions remained elevated at Cr 1.6. Will follow-up on blood cultures and lactic acid. A1c 7.1. Cholesterol levels within normal limits. Patient echocardiogram is pending and cocci serology as well. Patient has influenza pneumonia and therefore we will continue with Tamiflu. At this point we will hold off on CTA chest and await for patient's clinical improvement because symptoms appears to be related with Acute hypercapnic Hypoxic RF are most likely due to CHF and COPD exacerbation. Will closely monitor for hypoxia. Will needd PE to be ruled out. All labs and orders were reviewed. I saw and examined the patient, and I agree with current management stated by Dr Trudy MD,PGY1. Plan of care was discussed with the attending physician and resident physician. Disclaimer: Despite multiple revisions, due to the dictation software being used, the document bellow may not be free of grammatical errors including phonetic/typographic errors. However, this does not deter from our commitment to providing health care in the patient's best interest in mind. Dr. Brooke MD, PGY 2 Documentation for date of: 08/10/24 Subjective Subjective Interval history: Patient is a 64-year-old male with a past medical history of hypertension, hyperlipidemia, CAD, diabetes mellitus type 2 insulin-dependent, CHF (unknown ejection fraction), atrial fibrillation, seizures, and depression who was admitted for CHF exacerbation and influenza A. No overnight events reported for patient. Patient examined at bedside this monring. Patient was Alert and Oriented X3. Patient was saturating well on 2 Liters of Oxygen. Patinet denied chest pain. Cough +. Patient complained of fever, requested temperature check. Crackles still present on physical exam. Will follow up with IR with nodules noted on Cxr. Subsequently, patient later had two rapid response. Exam Vital Signs Temp Pulse Resp BP Pulse Ox O2 Del Method O2 Flow Rate 98.7 F 71 22 H 140/71 H 89 L Nasal Cannula 2 08/10/24 08:00 08/10/24 09:25 08/10/24 08:00 08/10/24 09:25 08/10/24 08:00 08/10/24 08:00 08/10/24 08:00 FiO2 2 08/10/24 00:33 Narrative Exam General Appearance: Alert & Oriented X3, well-nourished male who is lying in bed in no acute distress who was saturating well on 2 Liters of [place] HEENT: Skull symmetrical and atraumatic. Conjunctivae pale pink and moist. Pupils equal, round, reactive to light and accommodation (PERRL). External ear without lesion or discharge. Straight, nares patient, mucosa pink, no discharge. No thyroid nodule appreciated. No cervical lymphadenopathy. Cardio: Normal Rate and Irregular with S1 and S2 difficult to appreciate given upper air way sounds. Reduced vesicular breath sounds, wheezing and crackles appreciated on auscultation. Peripheral edema 3+ but improved. Lungs: Symmetric with good expansion. Chest and back non-tender. Breath sounds vesicular without crackles, wheezing or rhonchi Abdomen: Non-tender, Non-distended, Normal Reactive Bowel Sounds Neuro: Yes Alert, Yes cooperative, Yes oriented to person, place, and time. Speech clear. CN grossly intact. Upper motor strength 5/5 and Lower motor strength 5/5. Sensation intact. Objective Labs 08/11/24 03:13 08/11/24 12:48 Labs: Laboratory Results - last 24 hr 08/09/24 08/09/24 08/09/24 13:22 13:32 20:06 WBC 9.1 RBC 4.14 L Hgb 11.4 L Hct 36.0 L MCV 87 MCH 27.5 MCHC 31.7 RDW Std Deviation 45.7 H Plt Count 208 Neut % (Auto) 84 H Lymph % (Auto) 6 L [place] % (Auto) 9 Eos % (Auto) 0 Baso % (Auto) 0 Neut # (Auto) 7.7 Lymph # (Auto) 0.5 L [place] # (Auto) 0.9 H Eos # (Auto) 0.0 Baso # (Auto) 0.0 Immature Gran # (Auto) 0.03 H Absolute Nucleated RBC 0.00 Immature Gran % 0 Nucleated RBC % 0 PT 11.7 INR 1.1 APTT 33.3 Sodium 131 L Potassium 4.2 Chloride 99 Carbon Dioxide 22.9 Anion Gap 9 BUN 29 H Creatinine 1.6 H Estim Creat Clear Calc 68.4 eGFR 48 L BUN/Creatinine Ratio [address] Glu mg/dL Hemoglobin A1c Calculated Osmolality 275 Calcium 8.5 Corrected Calcium 8.6 Phosphorus Magnesium 2.3 Iron TIBC Iron Saturation Unsat Iron Binding Ferritin Total Bilirubin 0.7 AST 17 ALT 12 Alkaline Phosphatase 43 L Lactate Dehydrogenase 256 H Troponin I 0.038 0.059 H* B-Natriuretic Peptide 275 H Total Protein 6.9 Albumin 3.9 Globulin 3.0 Albumin/Globulin Ratio 1.3 Triglycerides Cholesterol LDL Cholesterol, Calc HDL Cholesterol Cholesterol/HDL Ratio Vitamin B12 TSH Free T4 Ur Collection Type Clean Catch Urine Color Yellow Urine Clarity Clear Urine pH 6.0 Ur Specific [place] 1.025 Urine Protein Trace Urine Glucose (UA) 4+ A Urine Ketones Negative Urine Blood Negative Urine Nitrite Negative Urine Bilirubin Negative Urine Urobilinogen (Auto) Negative Ur Leukocyte Esterase Negative Urine RBC 3 Urine WBC 1 Ur Squamous Epith Cells < 1 Urine Bacteria Rare Urine Opiates Screen Negative Urine Fentanyl Screen Negative Ur Barbiturates Screen Negative U Amphetamin/Meth Scrn Negative U Benzodiazepines Scrn Negative U Cocaine Metab Screen Negative U Marijuana (THC) Screen Negative 08/10/24 04:47 WBC 9.3 RBC 4.19 L Hgb 11.9 L Hct 36.6 L MCV 87 MCH 28.4 MCHC 32.5 RDW Std Deviation 45.9 H Plt Count 185 Neut % (Auto) 81 H Lymph % (Auto) 7 L [place] % (Auto) 12 Eos % (Auto) 0 Baso % (Auto) 0 Neut # (Auto) 7.5 Lymph # (Auto) 0.6 L [place] # (Auto) 1.1 H Eos # (Auto) 0.0 Baso # (Auto) 0.0 Immature Gran # (Auto) 0.04 H Absolute Nucleated RBC 0.00 Immature Gran % 0 Nucleated RBC % 0 PT INR APTT Sodium 133 L Potassium 4.2 Chloride 99 Carbon Dioxide 22.2 Anion Gap 12 BUN 34 H Creatinine 1.6 H Estim Creat Clear Calc 74.0 eGFR 48 L BUN/Creatinine Ratio 21 H Glucose [address] Glu mg/dL 157 H Hemoglobin A1c 7.1 H Calculated Osmolality 276 Calcium 8.6 Corrected Calcium 8.6 Phosphorus 5.2 H Magnesium 2.3 Iron 16 L TIBC 280 Iron Saturation 5 L Unsat Iron Binding 264 Ferritin 86 Total Bilirubin 0.7 AST 17 ALT 10 Alkaline Phosphatase 41 L Lactate Dehydrogenase Troponin I 0.070 H* B-Natriuretic Peptide Total Protein 7.0 Albumin 4.1 Globulin 2.9 Albumin/Globulin Ratio 1.4 Triglycerides 106 Cholesterol 83 L LDL Cholesterol, Calc 30 HDL Cholesterol 32 L Cholesterol/HDL Ratio 2.6 L Vitamin B12 326 TSH 0.20 L Free T4 1.49 Ur Collection Type Urine Color Urine Clarity Urine pH Ur Specific [place] Urine Protein Urine Glucose (UA) Urine Ketones Urine Blood Urine Nitrite Urine Bilirubin Urine Urobilinogen (Auto) Ur Leukocyte Esterase Urine RBC Urine WBC Ur Squamous Epith Cells Urine Bacteria Urine Opiates Screen Urine Fentanyl Screen Ur Barbiturates Screen U Amphetamin/Meth Scrn U Benzodiazepines Scrn U Cocaine Metab Screen U Marijuana (THC) Screen Quality Measures Quality Measures none Assessment & Plan Assessment Current Active Medications: Generic Name Dose Route Start Last Admin Trade Name Freq PRN Reason Stop Dose Admin Acetaminophen 650 mg 08/09/24 15:20 Acetaminophen 325 Mg Tablet PO 09/08/24 15:19 Q6H PRN Mild Pain 1-3 or Fever >100.4 Hydrocodone Bitart/Acetaminophen 1 tab 08/09/24 15:20 Hydrocodone/Apap 5/325 Tablet PO 08/14/24 15:19 Q4HR PRN PAIN SCALE 4-6 (Moderate Albuterol/Ipratropium 3 ml 08/09/24 19:00 08/10/24 07:03 Albuterol/Ipratropium (Duoneb) Rt Aspen 3 Ml Nebu INH 09/08/24 18:59 3 ml Q6HRRT ASHWIN Administration Amlodipine Besylate 5 mg 08/10/24 09:00 08/10/24 09:25 Amlodipine Besylate 5 Mg Tablet PO 09/09/24 08:59 5 mg QDAY ASHWIN Administration Aspirin 81 mg 08/11/24 09:00 Aspirin Ec 81 Mg Tabec PO 09/10/24 08:59 QDAY ASHWIN Rosuvastatin 20 Mg 0 ea 08/09/24 21:00 08/09/24 20:31 PO 09/08/24 20:59 1 tablet HS ASHWIN Administration Dextrose 25 ml 08/09/24 15:31 Dextrose 50%-Water Inj 50 Ml Syringe IV 09/08/24 15:30 Q15MIN PRN BG 50-70 responsive npo pt Dextrose 50 ml 08/09/24 15:31 Dextrose 50%-Water Inj 50 Ml Syringe IV 09/08/24 15:30 Q15MIN PRN BG <50 OR BG <70 & pt unresponsive Ferrous Sulfate 325 mg 08/10/24 07:45 08/10/24 09:24 Ferrous Sulf 325 Mg Tablet PO 09/09/24 07:44 325 mg QOD ASHWIN Administration Furosemide 40 mg 08/09/24 15:45 08/10/24 09:24 Furosemide Inj 10 Mg/Ml 4ml Vial IVP 09/08/24 15:44 40 mg QDAY ASHWIN Administration Glucagon 1 mg 08/09/24 15:31 Glucagon Inj 1 Mg Vial IM Q15MIN PRN BG <70, and no IV access Guaifenesin/Dextromethorphan 1 each 08/09/24 15:19 Guaifenesin/Dm Tablet PO 09/08/24 15:18 Q4HR PRN COUGH Insulin Glargine 12 unit 08/09/24 21:00 08/09/24 20:20 Insulin Glargine (Lantus) 5 Unit/0.05 Ml (Per 5 Units) SC 09/08/24 20:59 12 unit HS ASHWIN Administration Insulin Human Lispro 0 unit 08/09/24 17:00 08/10/24 07:56 Insulin Lispro (Admelog) 1 Unit/0.01 Ml Unit SC 09/08/24 16:59 2 unit ACHS ASHWIN Administration Protocol Mirtazapine 45 mg 08/09/24 21:00 08/09/24 20:13 Mirtazapine 15 Mg Tablet PO 09/08/24 20:59 45 mg HS ASHWNI Administration Ondansetron HCl 4 mg 08/09/24 15:20 Ondansetron Inj 2 Mg/Ml Inj 2 Ml IV 09/08/24 15:19 Q6H PRN NAUSEA OR VOMITING Protocol Oseltamivir Phosphate 75 mg 08/09/24 15:50 08/10/24 09:24 Oseltamivir 75 Mg Capsule PO 08/13/24 21:01 75 mg BID ASHWIN Administration Pantoprazole Sodium 40 mg 08/09/24 15:30 08/10/24 09:24 Pantoprazole Inj 40 Mg Vial IVP 09/08/24 15:29 40 mg QDAY ASHWIN Administration Paroxetine HCl 40 mg 08/09/24 21:00 08/09/24 20:13 Paroxetine Hcl 10 Mg Tablet PO 09/08/24 20:59 40 mg HS AHSWIN Administration Risperidone 6 mg 08/09/24 21:00 08/09/24 20:13 Risperidone 1 Mg Tablet PO 09/08/24 20:59 6 mg HS ASHWIN Administration Tamsulosin HCl 0.4 mg 08/09/24 16:00 08/10/24 09:25 Tamsulosin Hcl 0.4 Mg Capsule PO 09/08/24 15:59 0.4 mg QDAY ASHWIN Administration Topiramate 50 mg 08/09/24 21:00 08/09/24 20:13 Topiramate 25 Mg Tablet PO 09/08/24 20:59 50 mg HS ASHWIN Administration Plan Patient is a 64-year-old male with a past medical history of hypertension, hyperlipidemia, CAD, diabetes mellitus type 2 insulin-dependent, CHF (unknown ejection fraction), atrial fibrillation, history of seizures who was admitted for CHF exacerbation and influenza A. #Acute Hypoxic Respiratory Failure, requiring Bipap #CHF exacerbation in the setting of flu #Troponemia Patient has a past medical history of CHF likely secondary to ischemic cardiomyopathy given history of MA. PE less likely wells criteria 1.5. Less likely secondary to MA but can not be ruled out given past medical history. NO ST Elevation noted. Troponin continue to uptrend, but paitnet continues to deny chest pain. Likely secondary to NSTEMI type II demand ischemia. Metabolic Acidosis noted on ABG from first rapid. Second rapid-->ICU upgrade. Diagnostics: EKG: Atrial Fibrillation, Repeat EKG showing -BNP 275 Repeat 618 -Troponin 0.038, 0.070, 0.095 NYHA Class: IV Plan: -Lasix 40 IVP BID -Troponins Q6HR -Aspirin 81 mg restart -Holding home Spironolactone until echo. -K>4 and Mg >2 -Fluid Restriction and Sodium Restriction 2 g per day -Strict In and Outs, consider [place] if needed. -cautions oxygen support given COPD history 88-92% goal -Daily Weights, Strict Ins and Outs, Fluid Striction (1800 ml), Sodium Restriction 2 grams per day -Wound Care-for legs and rash noted on abdomen #Pneumonia Influenza A #Sepsis, secondary to pneumonia (?) Patient arrived with positive influenza A, denied sick contacts, increased productive cough. Superimposed gram-positive bacteria cannot be ruled out. Repeat Cxr duirng rapid (08/10/2023) showed worsening bilateral pneumonia. Likely secondary to Flu. Cxr showed possible nodules but these are. Patient complained of fever, noted to have a fever 100.8, w/ increased RR, consider sepsis secondary to pneumonia. Diagnostics: -Repeat Cxr (08/10/2024) -Cxr (08/09/2024): Mild vascular congestion, no lobar pneumonia or pulmonary edema, mild prominence cardiac contour -EKG Atrial Fibrillation, Lateral MA (intermediate age) Q waves noted -WBC 9.3 (08/10/2024) Plan -Tamiflu 75 mg p.o. twice daily (no need for renally dosing given creatinine clearance greater than 30.) -started Ceftriaxone 1 gm Qday & Azithromycin 500 mg (08/10/2024) -MRSA screen-Pending -Sputum culture-Pending -Chest physio -DuoNebs -Cough syrup as needed #ARIANA #Hypertension Patient has a past medical history of hypertension on losartan. Patient stated his blood pressure is usually well-controlled in the 130s for systolic. Given ARIANA currently holding losartan. ARIANA likely prerenal given BUN/creatinine ratio is 18 just slightly under 20. No history of previous CMP on file. Elevated creatinine 1.6 likely reflecting an ARIANA. Plan -Fluid resuscitation given acute CHF exacerbation -Amlodipine 5 mg Qday -Holding Losartan 25 mg home medication -Avoid nephrotoxins -Renally dose medication -Follow-up on morning labs with BUN/creatinine #Atrial fibrillation, rate controlled Patient has a past medical history of atrial fibrillation, currently rate controlled. Heart rate 86. No beta-blockers noted or calcium channel ninfa noted on medication review. Patient is out of state. Pending echo. Patient takes Eliquis at home 5 mg twice daily. Currently holding Eliquis given the possibility of CT-guided biopsy for possible pulmonary nodules. LILIDVBRITTANY 4, HAS BLED 1 point Plan -Holding home Eliquis 5 mg twice daily for possible CT-guided biopsy, NO CT. Will need to restart Eliquis -Heparin every 12 subQ DVT prophylaxis -Monitor electrolytes -Telemetry #Exaherbation COPD #History of Smoking Patient has a past medical history of smoking, 52-mexj-icai history. Smoked approximately 2 packs/day for about 20 years. Quit 15 years ago. Possible nodules noted on physical exam. Less likely secondary to cocci (negative) and less likley secondary to malignancy no nodules noted on Cxr and likely vascular. Need to restart Eliquis. Diagnostics: -lactate Dehydrogensase 256 Plan -Methylpredinisolone 125 mg IV X 1 -DuoNebs scheduled -Methylprednisolone 40 IVP Q6H -Oxygen goal of 88-92% -Holding Eliquis for possible biopsy -Consider Tumor markers. -Follow-up with Dr. Kwok for possible CT biopsy. #Diabetes mellitus type 2 insulin-dependent Patient has a past medical history of diabetes mellitus type 2 Home medication include Lantus 12 units, Januvia (Sitagliptin), Jardiance (Empagliflozin), and Ozempic. Patient stated he has lost about 120 lbs. Previous weight was 400->320-->current weight 320 lbs. Plan Lantus 12 units at bedtime Sliding scale ACHS A1c low carb consistent #History of CAD #history of hyperlipidemia Has a past medical history of hyperlipidemia with a previous history of MA approximately 5 years ago. Patient takes rosuvastatin 40 mg at bedtime. But not found in the formulary in the system. Patient has an allergy to atorvastatin. Plan -Added rosuvastatin as a nonformulary, if patient can bring in and please administer. #History of depression Patient has a past medical history of depression Home medication includes risperidone 6 mg at bedtime, mirtazapine 45 mg at bedtime, and paroxetine 40 mg at bedtime Plan -Restart risperidone 6 mg at bedtime -Restart mirtazapine 40 mg at bedtime -Restart paroxetine 40 mg at bedtime #History of seizures Patient has a past medical history of seizures, last seizure was several years ago and patient cannot recall but has been stable. Home medication topiramate 50 mg HS. Plan -topiramate 50 mg HS #Normocytic Anemia Likely secondary to chronic disease. Diagnostics: Plan -No acute intervention #Mild Hyponatremia Hypo-osmolar, Hypervolemic Likely secondary to CHF exacerbation Diagnostics: Na 131-->corrected 133 Plan -Monitor Na -1800 fluid restricted Health Maintenance: Disp: Pt is currently admitted to floors for further management of Flu and CHF exacerbation, awaiting echo and sputum FEN: Low carb consistent, fluid restricted 1800, sodium restricted 2 gm DVT: on subQ heparin-->transition back to [facility]. NO biopsy scheduled. Code: Full Code - The patient's plan was discussed with attending Dr. Oliveira and senior residents Dr. Brooke Yates MD PGY1 Attending Provider Attestation/Addendum I have discussed and was present for the essential components of the history, physical examination, diagnosis, and treatment plan with the resident. I agree with the patient's care as documented by the resident and amended herein by me. Carter Oliveira DO. Although this document has been carefully reviewed, there may still be some phonetic and other typographical errors. These errors are purely grammatical due to imperfections in the software program and should not be construed in any way to compromise the substance of the patient's medical care during this visit.
--- NOTE | 2024-08-10 11:27 | XR_ITS ---
Examination: AP chest single view Technique one AP portable upright chest single view Exam date and time: August 10, 2024 1147 hours Comparison August 09, 2024 INDICATIONS: Hypoxia today FINDINGS: Interval severe bilateral pneumonia Minor prominence left ventricle No pneumothorax IMPRESSION: Interval severe bilateral pneumonia
--- NOTE | 2024-08-10 11:30 | EKG_ITS ---
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
[2024-08-10 11:40] LABS: Base Excess -8 (-3-3); HCO3 20 mEq/L (20-26); Inspired O2, VO2 Liters 8 L/min; O2 Saturation 86 % (91-98); PCO2 49 mmHg (32.0-48.0); PO2 60 mmHg (83-108); pH, Arterial 7.21 (7.35-7.45)
[2024-08-10] MEDS: MethylPREDNISolone SOD SUCC 62.5 MG/ML 2ML VIAL 125 MG IV (11:43)
[2024-08-10] MEDS: cefTRIAXone/D5w 1gm IV premix 50 ML IV (11:50)
--- NOTE | 2024-08-10 12:06 | EVENTNT_ITS ---
<Statement entered by Daniel Cox MD - 08/10/24 13:29> I saw and examined the patient, and I agree with current management stated by Dr Trudy MD,PGY1. Plan of care was discussed with the attending physician and resident physician. Disclaimer: Despite multiple revisions, due to the dictation software being used, the document bellow may not be free of grammatical errors including phonetic/typographic errors. However, this does not deter from our commitment to providing health care in the patient's best interest in mind. Dr. Brooke MD, PGY 2 Documentation for date of: 08/10/24 Event Note Event Note: Rapid Response 11:25 AM Rapid Response called for low SpO2 84% despite 8 liters of oxygen, this morning patient was saturating at SpO2 96% on 2 liters oxygen. BP during rapid 135/75 HR 66. RR 22 with increased work of breathing. Patient was able to protect airway, tachypenic, and circulation intact. Improved lower pedal edema but still 3+. Rate A. fib. Intervention: Lasix 40 IVPX 1, Duonebs X1, Solu-Medrol 125 x1, switched patient to Bipap. Orders: Chest X-ray, ABG, BNP, BMP, Tronins, EKG,Lasix 40 mg BID (increased), Solu-Medrol 40 mg IV Q6HR Scheduled, Azithromycin and Ceftriaxone added started, new blood cultures, and UA. - The patient's plan was discussed with attending Dr. Oliveira and senior residents Dr. Brooke Yates MD PGY1 Internal Medicine
[2024-08-10 12:09] LABS: Lactate (Lactic Acid) 2.2 mMol/L (0.4-2.0)
[2024-08-10 12:12] LABS: Basophils % (Auto) 0 % (0-2.5); Eosinophils % (Auto) 0 % (0-10); Hematocrit 41.1 % (41.0-53.0); Immature Granulocytes % (Auto) 0 % (0-0); Immature Granulocytes Auto 0.06 Thou/mm3 (0.00-0.00); Lymphocytes # (Auto) 0.4 Thou/mm3 (1.0-4.8); Lymphocytes % (Auto) 3 % (10-50); Mean Corpuscular HGB Conc 31.6 g/dl (31.0-37.0); Mean Corpuscular Hemoglobin 27.3 pg (25.0-35.0); Mean Corpuscular Volume 86 fL (80-100); Monocytes # (Auto) 1.2 Thou/mm3 (0.0-0.8); Monocytes % (Auto) 8 % (0-12); Neutrophils # (Auto) 13.1 Thou/mm3 (1.8-7.7); Neutrophils % (Auto) 89 % (37-80); Nucleated Red Blood Cell % 0 /100 WBC (0); Platelet Count 240 Thou/mm3 (140-440); RDW Standard Deviation 46.5 fL (35.1-43.9); Red Blood Count 4.76 Miln/mm3 (4.50-5.90); White Blood Count 14.8 Thou/mm3 (3.8-10.6)
[2024-08-10] MEDS: AZITHROMYCIN INJ 500 MG in SODIUM CHLORIDE 0.9% 250 ML 250 ML 250 MG IV (12:26)
[2024-08-10 12:29] LABS: Allen Test Not Performed; Puncture Site Right Radial
[2024-08-10 12:30] LABS: Anion Gap 13 (7-16); BUN/Creatinine Ratio 21 Ratio (12-20); Blood Urea Nitrogen 37 mg/dL (9-23); Calcium 8.8 mg/dL (8.3-10.6); Carbon Dioxide 19.6 mMol/L (20.0-31.0); Chloride 99 mMol/L (98-107); Creatinine (Component) 1.8 mg/dL (0.6-1.3); Estimated Creatinine Clearance 65.8 mL/min (>60); Glucose 228 mg/dL (74-106); Osmolality,Calculated 280 (275-295); Potassium 4.3 mMol/L (3.4-5.1); Sodium 132 mMol/L (136-145); eGFR 42 See Note
[2024-08-10 12:31] LABS: Troponin I 0.095 ng/mL (0.0-0.045)
[2024-08-10 12:46] LABS: B-Type Natriuretic Peptide 618 pg/mL (0-100)
--- NOTE | 2024-08-10 13:24 | ESCONSULT_ITS ---
<Statement entered by Nacho Yoon MD - 08/11/24 05:00> I have personally seen and examined the patient separately on the above date of service and discussed the plan of care with the resident. I reviewed the resident Dr. Gaming consultation note and agree with the resident findings and plan in the note above and have also edited the documentation to reflect my findings and plan. A 64-year-old male with a past medical history of morbid obesity, history of CAD with unknown stents, CHF systolic versus diastolic, paroxysmal atrial fibrillation on anticoagulation, essential hypertension, type 2 diabetes mellitus, seizure disorder, history of chronic smoking with more than [id number] smoking history quit 15 years ago presented to the emergency department for further evaluation of worsening shortness of breath as well as cough and bilateral leg swelling along with generalized weakness. In the emergency department initial set of vitals showed patient's blood pressure at 127/70 mmHg, temperature 100.8 F, 94% on room air and normal heart rate. Labs showed WBC of 9.1, hemoglobin of 7.4 platelets of 208. BUN of 28 creatinine of 1.6 sodium of 131 glucose of 228. And troponin was 0.038 and negative. LFTs were normal. UA showed 4+ glucose but negative for infection. EKG showed atrial fibrillation rate controlled at 61 bpm with low voltage in the limb leads and the possible limb lead reversal and nonspecific ST-T changes. initial chest x-ray showed mild vascular congestion but no evidence of any lobar pneumonia. Influenza A was positive Patient was admitted to the general medicine floor for CHF exacerbation along with influenza A infection. Patient was started on Tamiflu and also started on IV Lasix for possible CHF exacerbation. Echo was ordered and blood pressure holding controlled. Patient continue to worsen on the floor and and rapid response called a couple of times today as patient is her close ulcerations in the 70s and 80s. Initially oxygen was increased but patient had increased work of breathing and patient was started on BiPAP after giving additional Lasix 40 mg IV along with the some DuoNebs the patient was wheezing and Solu-Medrol 5 mg. Patient continued to deteriorate and was intubated for airway protection as the ABG showed pH of 6.97 with a pCO2 of 95 and pO2 of 64. Multiple which is 60 labs were performed which showed worsening severe bilateral pneumonia consolidation with vascular congestion. Cardiology consulted for further evaluation of possible CHF exacerbation and atrial fibrillation. Plan: Patient has acute hypercapnic and hypoxic respiratory failure which is mostly secondary to his underlying COPD from his chronic smoking with influenza infection and possible superimposed bacterial infection. Patient also is at increased risk of MARK as well as obesity pickwickian syndrome. ABG reviewed and pH is 6.97 and pCO2 is 95 pO2 is 64. Patient is intubated, sedated and on mechanical ventilation. Overall picture appears to be the patient is most leading to ARDS and less likely flash pulmonary edema. Patient started on broad-spectrum antibiotics which we recommend to continue for possible superimposed bacterial infection along with the time of 2 for the slow. Ventilator management as per the primary team for possible ARDS. Regarding his volume status patient definitely is fluid overloaded has around 2+ leg edema bilaterally just below the knees with chronic venous stasis changes. Chest x-ray also shows some pulm congestion. proBNP increased to 600. Patient was given 40 and 40 total of 80 mg IV Lasix and did have a total of 330 mL of urine output in the last 12 hours since this morning. Question of flash pulmonary edema but overall clinical picture is consistent. Recommend additional Lasix 40 mg approximately 80 mg IV x 1 and continue to monitor strict input output. Echocardiogram completed but had very poor images because of the body habitus and could not visualize the valves properly. Patient does appear to have a normal LV function with an EF of around 65%. Mild LVH and diastolic dysfunction could not be determined due to the A-fib. RV is mildly dilated and function appears to be normal. IVC is and definitely dilated. Could not estimate RVSP or PAH due to poor visualization of the valves. Patient possibly has mild aortic valve stenosis with V-max of 2.8 m/s along with mild AI and also mild to moderate MR. Patient does have only mild aortic stenosis as noted above with a murmur along with mild to moderate MR but as noted by the images alert for. Unlikely to valvular heart disease causing his symptoms as patient does not appear to be overtly fluid overloaded at the present point of time. Patient does possibly has pulmonary hypertension possibly group 3 given his overall clinical picture which could explain his mild RV dilatation also. Patient does have a history of paroxysmal atrial fibrillation but rate appears to be controlled. Patient is on pressors at the present moment and would recommend to hold off any kind of rate control medications and if patient is in atrial fibrillation with RVR then patient can be started amiodarone and once patient blood pressure is better Cardizem can be used IV or oral as his ejection fraction is normal. Beta-ninfa contraindicated in the setting of COPD. Keep potassium greater than 4 and magnesium greater than 2.0 at all times. Patient was on Eliquis for anticoagulation as discharged Vascor is can be changed to heparin drip if further procedures are planned. Patient apparently has history of CAD with history of stents. Initial troponin was 0.03 but repeat troponins are elevated. Patient needs to be on anticoagulation for his atrial fibrillation and can change to heparin drip for now. Aspirin 81 mg once daily for now. Echo already checked and there is no regional wall motion abnormalities and unlikely patient is having acute coronary syndrome. Patient mostly has NSTEMI type II in the setting of supply/demand mismatch from the acute hypercapnic and hypoxic respiratory failure as noted above. Management of rest of the medical conditions as per primary team and other consultants. Thank you for the consult and allowing me to participate in the care of the patient. Cardiology will continue to follow. Nacho Yoon M.D. Interventional Cardiology HPI Data of Consult Requesting Physician: Oscar Oliveira DO Admitting Provider: Oscar Oliveira DO Attending Provider: Oscar Oliveira DO Primary Care Provider: Physician No Primary/Family Consult Narrative History of present illness: Andrew is a 64 y/o male with past medical history of hypertension, hyperlipidemia, CAD, type 2 diabetes insulin-dependent, CHF, A-fib (on Eliquis 5mg twice daily), history of seizures who is currently admitted into the ICU for acute hypoxic hypercarbic respiratory failure requiring intubation and likely septic shock secondary to influenza A. Patient had multiple rapid responses called on him today due to hypoxia and worsening respiratory status, was put on BiPAP but did not improve patient's respiratory status. Patient was then intubated for worsening respiratory failure and for concern for protecting airway. Limited history due to patient being intubated and unable to ask questions and most of history reviewed through chart review. Patient was having a productive cough and pleuritic chest pain and worsening shortness of breath worsened by exertion in addition to increased lower extremity swelling and worsening orthopnea. Patient is currently in the ICU for further management of septic shock and acute hypoxic hypercarbic respiratory failure. ED course: Patient's vital in the emergency room and temperature of 100.8, non septic with normal respiratory and heart rate. Blood pressure within normal range 137/72. ARIANA noted BUN 29, creatinine 1.6, GFR 48. Hyperglycemic to 28. WBC count 9.1. Anemia noted, normal hemoglobin 11.4, and hematocrit 36.0. Lactate dehydrogenase 256 but calcium within normal range. Troponin slightly elevated 0.038. BNP 275. EKG A-fib with old OR. UA positive for glucose. No medication given in ER. After patient was admitted to the floors, patient continued to deteriorate. Was eventually upgraded to ICU and intubated for acute hypoxic hypercarbic respiratory failure was intubated. ABG showed pH of 6.97, pCO2 of 95 and pO2 of 64, was not given sodium bicarb, was given breathing treatments, Solu-Medrol 125, Lasix 40. Right IJ line and right art line was put in for patient as well. Patient was started on 2 pressors vasopressin and Levophed. Past medical history: As above Past Surgical History: Appendectomy, Disc repair secondary to spinal stenosis Allergies: Lipitor, lisinopril, Bactrim Home Medication (gotten from chart review): Rosuvastin, Losartan 25 mg, Lasix 40 mg QDay, Spironolactone, Lantus 12 units, Januvia, Ozempic 0.5 sub q once a week, Jardiance 25 mg once a day, Tamusloin 0.4mg, Risperidone 6 mg HS okay furosemide 40 mg Qday, Eliquis 5 mg Qday, Mirtazapine 45 mg HS, Paroxetine 40 mg PO,Topiramate 50 g HS Social History (from chart review): [id number] history, smoked for 20 years about 2 packs/day, quit 15 years ago, Denied alcohol use, Denied illicit drug use, moved from [place] very recently (2 days ago?) cc:: cc: Oscar Oliveira, DO Review of Systems Review of Systems Narrative Review of Systems: ROS limited as pt is intubated Exam Vital Signs Temp Pulse Resp BP Pulse Ox O2 Del Method O2 Flow Rate 98.7 F 62 39 H 125/78 87 L Oxy Mask 15 08/10/24 12:00 08/10/24 12:12 08/10/24 12:12 08/10/24 12:00 08/10/24 12:12 08/10/24 12:00 08/10/24 11:39 FiO2 60 08/10/24 12:12 Narrative Exam General: AAOx0, dishelved, morbidly obese man, unkempt, bearded male HEENT: Moist mucous membranes, conjunctiva clear, EOMI,skin tags present Cardiovascular: Pansystolic murmur ausculated upon mitral valve and R sternal border, no carotid bruit appreciated, radial pulses +2 bilat, irregularly irregular, Radial A-line present, bilat wrist restraints present Pulmonary: Mechanical breath sounds appreciated, TV 500, PEEP 12, FiO2 100, Saturating 70%~ GI: No ascites noted, bowel sounds present, however, abd obesity Extremities: venous stasis noted, unkempt feet, +2 bilat edema in LE, some edema noted along IT band as well Neuro: AAOx0 Results Labs 08/10/24 11:55 08/10/24 11:55 Labs: Short CBC 08/09/24 08/10/24 08/10/24 Range/Units 13:22 04:47 11:55 WBC 9.1 9.3 14.8 H D (3.8-10.6) Thou/mm3 Hgb 11.4 L 11.9 L 13.0 L (13.5-16.0) g/dL Hct 36.0 L 36.6 L 41.1 (41.0-53.0) % Plt Count 208 185 240 D (140-440) Thou/mm3 BMP 08/09/24 08/10/24 08/10/24 13:22 04:47 11:55 Sodium 131 L 133 L 132 L Potassium 4.2 4.2 4.3 Chloride 99 99 99 Carbon Dioxide 22.9 22.2 19.6 L BUN 29 H 34 H 37 H Creatinine 1.6 H 1.6 H 1.8 H Glucose 228 H 157 H D 228 H D Calcium 8.5 8.6 8.8 Cardiac Enzymes 08/09/24 08/09/24 08/10/24 Range/Units 13:22 20:06 04:47 Troponin I 0.038 0.059 H* 0.070 H* (0.0-0.045) ng/mL 08/10/24 Range/Units 11:55 Troponin I 0.095 H* (0.0-0.045) ng/mL Liver Function 08/09/24 08/10/24 Range/Units 13:22 04:47 Total Bilirubin 0.7 0.7 (0.3-1.2) mg/dL AST 17 17 (0-34) U/L ALT 12 10 (10-49) U/L Alkaline Phosphatase 43 L 41 L (46-116) U/L Albumin 3.9 4.1 (3.4-4.8) gm/dL Urine 08/09/24 Range/Units 13:32 Urine Color Yellow (Lt Yel-Yel) Urine Clarity Clear (Clear/Hazy) Urine pH 6.0 (5.0-7.0) Ur Specific Leonard 1.025 (1.001-1.035) Urine Protein Trace (Neg - Trace) Urine Glucose (UA) 4+ A (Negative) ABG Interpretation ABG results: 08/10/24 11:34 ABG pH 7.21 L ABG pCO2 49 H ABG pO2 60 L ABG HCO3 20 ABG O2 Saturation 86 L ABG Base Excess -8 L Quality Measures Quality Measures none Medications Home Medications and Allergies Allergies Allergy/AdvReac Type Severity Reaction Status Date / Time atorvastatin Allergy Verified 08/09/24 13:49 lisinopril Allergy Verified 08/09/24 13:49 sulfamethoxazole Allergy Verified 08/09/24 13:49 [From Bactrim] trimethoprim [From Bactrim] Allergy Verified 08/09/24 13:49 Visit Medications Hydrocodone Bitart/Acetaminophen (Hydrocodone/Apap 5/325 Tablet) 1 tab PO Q4HR PRN PRN Reason: PAIN SCALE 4-6 (Moderate Stop: 08/14/24 15:19 Albuterol/Ipratropium (Albuterol/Ipratropium (Duoneb) Rt Aspen 3 Ml Nebu) 3 ml INH Q6HRRT ASHWIN Stop: 09/08/24 18:59 Last Admin: 08/10/24 12:24 Dose: 3 ml Amlodipine Besylate (Amlodipine Besylate 5 Mg Tablet) 5 mg PO QDAY ASHWIN Stop: 09/09/24 08:59 Last Admin: 08/10/24 09:25 Dose: 5 mg Aspirin (Aspirin Ec 81 Mg Tabec) 81 mg PO QDAY ASHWIN Stop: 09/10/24 08:59 Rosuvastatin 20 Mg 0 ea PO HS ASHWIN Stop: 09/08/24 20:59 Last Admin: 08/09/24 20:31 Dose: 1 tablet Dextrose (Dextrose 50%-Water Inj 50 Ml Syringe) 25 ml IV Q15MIN PRN PRN Reason: BG 50-70 responsive npo pt Stop: 09/08/24 15:30 Dextrose (Dextrose 50%-Water Inj 50 Ml Syringe) 50 ml IV Q15MIN PRN PRN Reason: BG <50 OR BG <70 & pt unresponsive Stop: 09/08/24 15:30 Furosemide (Furosemide Inj 10 Mg/Ml 4ml Vial) 40 mg IVP BID ASHWIN Stop: 09/09/24 20:59 Glucagon (Glucagon Inj 1 Mg Vial) 1 mg IM Q15MIN PRN PRN Reason: BG <70, and no IV access Guaifenesin/Dextromethorphan (Guaifenesin/Dm Tablet) 1 each PO Q4HR PRN PRN Reason: COUGH Stop: 09/08/24 15:18 Ceftriaxone Sodium/Dextrose (Rocephin/D5w 1gm Iv Premix) 50 mls @ 100 mls/hr IV QDAY [facility] Stop: 08/17/24 11:25 Last Admin: 08/10/24 11:50 Dose: 100 mls/hr Azithromycin 500 mg/ Sodium (Chloride) 250 mls @ 250 mls/hr IV QDAY [facility] Stop: 08/17/24 11:25 Last Admin: 08/10/24 12:26 Dose: 250 mls/hr Insulin Glargine (Insulin Glargine (Lantus) 5 Unit/0.05 Ml (Per 5 Units)) 12 unit SC [facility] Stop: 09/08/24 20:59 Last Admin: 08/09/24 20:20 Dose: 12 unit Insulin Human Lispro (Insulin Lispro (Admelog) 1 Unit/0.01 Ml Unit) 0 unit SC [facility]; Protocol Stop: 09/08/24 16:59 Last Admin: 08/10/24 12:05 Dose: 3 unit Methylprednisolone Sodium Succinate (Methylprednisolone Sod Succ 40 Mg Vial) 40 mg IVP Q6H ASHWIN Stop: 08/17/24 20:59 Mirtazapine (Mirtazapine 15 Mg Tablet) 45 mg PO [facility] Stop: 09/08/24 20:59 Last Admin: 08/09/24 20:13 Dose: 45 mg Ondansetron HCl (Ondansetron Inj 2 Mg/Ml Inj 2 Ml) 4 mg IV Q6H PRN; Protocol PRN Reason: NAUSEA OR VOMITING Stop: 09/08/24 15:19 Oseltamivir Phosphate (Oseltamivir 75 Mg Capsule) 75 mg PO BID ASHWIN Stop: 08/13/24 21:01 Last Admin: 08/10/24 09:24 Dose: 75 mg Pantoprazole Sodium (Pantoprazole Inj 40 Mg Vial) 40 mg IVP QDAY ASHWIN Stop: 09/08/24 15:29 Last Admin: 08/10/24 09:24 Dose: 40 mg Paroxetine HCl (Paroxetine Hcl 10 Mg Tablet) 40 mg PO HS ASHWIN Stop: 09/08/24 20:59 Last Admin: 08/09/24 20:13 Dose: 40 mg Risperidone (Risperidone 1 Mg Tablet) 6 mg PO HS ASHWIN Stop: 09/08/24 20:59 Last Admin: 08/09/24 20:13 Dose: 6 mg Tamsulosin HCl (Tamsulosin Hcl 0.4 Mg Capsule) 0.4 mg PO QDAY ASHWIN Stop: 09/08/24 15:59 Last Admin: 08/10/24 09:25 Dose: 0.4 mg Topiramate (Topiramate 25 Mg Tablet) 50 mg PO HS ASHWIN Stop: 09/08/24 20:59 Last Admin: 08/09/24 20:13 Dose: 50 mg Discontinued Medications Acetaminophen (Acetaminophen 325 Mg Tablet) 650 mg PO Q6H PRN PRN Reason: Mild Pain 1-3 or Fever >100.4 Stop: 09/08/24 15:19 Albuterol/Ipratropium (Albuterol/Ipratropium (Duoneb) Rt Aspen 3 Ml Nebu) 3 ml INH X1 ONE Stop: 08/10/24 11:31 Last Admin: 08/10/24 11:38 Dose: 3 ml Apixaban (Apixaban 2.5 Mg Tablet) 5 mg PO BID ASHWIN Stop: 09/08/24 20:59 Atorvastatin Calcium (Atorvastatin Calcium 20 Mg Tablet) 80 mg PO HS ASHWIN Stop: 09/08/24 20:59 Rosuvastatin 20 Mg 0 ea PO HS ASHWIN Stop: 09/08/24 16:44 Last Admin: 08/09/24 17:49 Dose: Not Given Rosuvastatin 20 Mg 0 ea PO HS [facility] Stop: 09/08/24 16:44 Ferrous Sulfate (Ferrous Sulf 325 Mg Tablet) 325 mg PO QOD ASHWIN Stop: 09/09/24 07:44 Last Admin: 08/10/24 09:24 Dose: 325 mg Furosemide (Furosemide Inj 10 Mg/Ml 4ml Vial) 40 mg IVP QDAY ASHWIN Stop: 09/08/24 15:44 Last Admin: 08/10/24 09:24 Dose: 40 mg Furosemide (Furosemide Inj 10 Mg/Ml 4ml Vial) 40 mg IVP X1 ONE Stop: 08/10/24 11:34 Last Admin: 08/10/24 11:44 Dose: 40 mg Heparin Sodium (Porcine) (Heparin Sod Inj 5000 Unit/Ml Vial) 5,000 unit SC Q12HR [facility]SHWIN Stop: 08/23/24 20:59 Methylprednisolone Sodium Succinate (Methylprednisolone Sod Succ 62.5 Mg/Ml 2ml Vial) 125 mg IV X1 ONE Stop: 08/10/24 11:28 Last Admin: 08/10/24 11:43 Dose: 125 mg Methylprednisolone Sodium Succinate (Methylprednisolone Sod Succ 40 Mg Vial) 40 mg IVP Q6HR ASHWIN Stop: 08/17/24 12:14 Last Admin: 08/10/24 12:20 Dose: Not Given Sevelamer Carbonate (Sevelamer Carbonate 800 Mg Tablet) 800 mg PO X1 ONE Stop: 08/10/24 07:58 Last Admin: 08/10/24 09:24 Dose: 800 mg Sodium Chloride (Sodium Chloride Rt 10% 15 Ml Nebu) 5 ml INH X1 ONE Stop: 08/09/24 15:21 Assessment & Plan Plan Assessment Andrew is a 64 y/o male with past medical history of hypertension, hyperlipidemia, CAD, type 2 diabetes insulin-dependent, CHF, A-fib (on Eliquis 5mg twice daily), history of seizures who is currently admitted into the ICU for acute hypoxic hypercarbic respiratory failure requiring intubation and likely septic shock secondary to influenza A. #Septic shock secondary to #Influenza A #? Superimposed bacterial infection Influenza A positive Currently on levophed (0.21 mcg) and vasopressin (.03) Pt currently has A line at this time Plan: -Tamiflu started for patient -Vanc and Zoysn -F/u Blood cultures, sputum -Trend lactate -Treat infection to wean down pressors #Hx of CAD #Acute exacerbation of HFpEF with diastolic dysfunction #Elevated troponins Echo shows EF 55-60%, normal LV, mild LVH, dilated RV, IVC dilated, AV stenosis Plan: -Continue to trend troponins -We recomend giving additional 80 Lasix IV -Resume ASA #Chronic, A-fib, rate controlled, on home Eliquis [id number] HAS-BLED: 1 Rate:Bradycardia Rhythm:Irregular AC: Has home Eliquis Pt is currently on pressors Plan: -Will hold on resuming any rate controlled medicines at this time #IDDM #Hyperlipidemia #Hypertension Total Cholesterol: 83 LDL:30 A1c 7.1 Plan: Holding BP meds as he is hypotensive and on pressors Resumed home Rosuvastatin Primary team to handle BG #Acute hypoxic hypercarbic respiratory failure #Respiratory acidosis #? hx of COPD #? OHS Likely multifactorial, could be also due to flash pulmonary edema due rapid changes However, this could also be due to infectious cause, OHS, COPD Extensive smoking history, pt is most likely has COPD On ventilator currently, will adjust settings and PEEP to bring down acidosis ABG pH: 6.99, PCO2= 95 Plan: -Follow up chest CT -Treat underlying infection -Pulmonary hygiene -Will hold on HCO3- -ABGS -If pt does not improve with pH, consider HCO3-, and then possibly dialysis -Consider levalbuterol considering afib hx #History of depression #History of seizures #Normocytic Anemia #Mild Hyponatremia Hypo-osmolar, Hypervolemic Above managed by primary hospitalist team Patient seen and care discussed with my attending physician, Dr. Karrie Merritt, PGY-1
--- NOTE | 2024-08-10 13:51 | PC.SS ---
Rapid response initiated on the patient. Patient to be upgraded to ICU.
--- NOTE | 2024-08-10 13:55 | PD.RESEVENT ---
Documentation for date of: 08/10/24 Event Note Event Note: Rapid Response Called at 13:55 Second rapid response called for patient. Patient was found altered and non response to verbal command, only to painful stimuli. Alberto score of 7. Patient was started on BiPaP at about 12:00 PM. SpO2 during rapid in mid 80% with HR 55 in still on Afib. Patient unable to protect airway on Bipap. ICU consulted-->intubation Intervention: ABG - The patient's plan was discussed with attending Dr. Oliveira and senior Dr. Altagracia Yates MD PGY1 Internal Medicine
[2024-08-10 14:00] LABS: Allen Test Not Performed; Base Excess -12 (-3-3); HCO3 22 mEq/L (20-26); Inspired Oxygen, FIO2 100 %; O2 Saturation 80 % (91-98); PCO2 95 mmHg (32.0-48.0); PO2 64 mmHg (83-108); Puncture Site Right Radial
[2024-08-10 14:03] LABS: pH, Arterial 6.97 (7.35-7.45)
[2024-08-10 14:06] LABS: Cocci Serology, IgM Negative (Negative)
--- NOTE | 2024-08-10 14:15 | XR_ITS ---
Examination: AP chest single view Technique one AP portable semiupright chest single view Exam date and time: August 10, 2024 1432 hours Comparison November 08, 2004 INDICATIONS: Hypoxic respiratory failure, postintubation today, severe bilateral pneumonia on chest film August 10, 2024 11:47 AM FINDINGS: Severe bilateral lung opacity Tracheal tube tip 5.7 cm above ioana Orogastric tube is in stomach No major cardiac enlargement IMPRESSION: Severe bilateral pneumonia Endotracheal tube tip 5.7 cm above ioana
[2024-08-10] MEDS: ROCURONIUM INJ 10 MG/ML VIAL 10 ML 100 MG IV (14:20)
[2024-08-10] MEDS: Norepinephrine/D5W 8mg/250ml 8 MG/250 ML BAG 14.738 MG IV (14:22)
--- NOTE | 2024-08-10 14:50 | PC.SS ---
SS follow up note; SS contacted Sammi RALPH in locating patient's roommate, Wyatt Wallace. Tomas ARMSTRONG's contact number was provided.
--- NOTE | 2024-08-10 15:04 | PC.SS ---
BACK PANEL PADDER conducted phone contact with patient's medical surrogate decision maker, Wyatt Wallace . BACK PANEL PADDER informed decision maker that patient has been upgraded to ICU. BACK PANEL PADDER informed decision maker that ICU medical team would be reaching out to provide medical update and treatment plan for patient. Medical decision maker confirmed that patient re-located from [place] approximately 3 days ago. Per medical decision maker patient does not possess any children. Patient does have 1 sister with whom patient is estranged from. Medical decision maker, Wyatt Torreatt; has been friends with the patient since high school. BACK PANEL PADDER updated contact list with correct number and provided Mr. Wallace's number to ICU medical team.
[2024-08-10 15:06] LABS: Reflex Lactate? Y
[2024-08-10] MEDS: VASOPRESSIN IN NS IVPB 20 UNIT/100 ML BAG 9 UNIT IV (15:06)
[2024-08-10] MEDS: fentaNYL 2,500 MCG/250 ML BAG 2,500 MCG/250 ML BAG IV (15:17)
--- NOTE | 2024-08-10 15:54 | XR_ITS ---
Examination: AP chest single view TECHNIQUE: AP portable semiupright chest single view Exam date and time: August 10, 2024 1604 hours Comparison August 10, 2004 1432 hours INDICATIONS: Post central line placement FINDINGS: Worsening bilateral lung opacity Right internal jugular central line tip SVC satisfactory position, no pneumothorax Tracheal tube tip 4.4 cm above ioana Orogastric tube tip is below the level of the film No significant cardiac enlargement IMPRESSION: Worsening severe bilateral pneumonia Interval right internal jugular central line in satisfactory position, no pneumothorax
[2024-08-10 16:53] LABS: Base Excess -14 (-3-3); HCO3 19 mEq/L (20-26); Inspired Oxygen, FIO2 100 %; O2 Saturation 58 % (91-98); PCO2 78 mmHg (32.0-48.0)
[2024-08-10 17:03] LABS: PO2 41 mmHg (83-108); pH, Arterial 6.99 (7.35-7.45)
[2024-08-10 17:04] LABS: Allen Test Not Performed; Puncture Site Arterial Line
--- NOTE | 2024-08-10 17:24 | ESCONSULT_ITS ---
<Statement entered by Idalmis Murry MD - 08/12/24 08:10> TOTAL CC TIME: 65 MIN I saw and evaluated the patient. I reviewed the resident?s note and agree with findings and plan as documented in the resident?s note. Upon my evaluation, this patient had a high probability of imminent or life- threatening deterioration due to septic shock, from likely aspiration pneumonia now complicated by bacterial pneumonia, ARDS, acute kidney injury which required my direct attention, intervention, and personal management. This time is exclusive of time spent on procedures, which are documented separately if performed. Lung volume protective strategy, vasopressor support for septic shock avoid aggressive IV fluid resuscitation as the patient is already volume overloaded track lactic acid follow-up troponins currently no evidence of acute myocardial infarction Avoid nephrotoxic agents if possible and renally adjust antibiotics <Statement entered by Светлана Dotson DO - 08/11/24 06:29> Senior attestation: Patient was examined and case was reviewed with team including attending physician. Note reviewed, I agree with most of its contents and agree with the patient's care. In summary, patient is a 64 year old male with history of hypertension, hyperlipidemia, CAD, T2DM, CHF, atrial fibrillation, and seizures who presented to the ED with concerns of dyspnea and cough, was admitted to the floors for CHF exacerbation concerns and influenza. During hospital course on 08/10, patient experienced two rapid responses, one for desaturation requiring BiPAP initiation and IV steroids/antibiotics, and the second for hypoxia in setting of altered mentation, which required intubation for airway protection. Given concerns of pulmonary edema and now s/p intubation for mechanical ventilation, patient was transferred to the ICU for further care. ABGs were assessed around time of intubation, revealing pH 6.97 and PCO2 97, will monitor serial ABGs with mechanical ventilation setting adjustments as indicated, arterial line has been placed. Patient's MAP noted to drop < 65, will start on levophed and vasopressin with MAP goal of 65+, will also broaden antibiotic coverage to include zosyn and vancomyin. CTA chest has been ordered to rule out pulmonary embolism. Fibrous Wallboard Inspector Dr. Yoon following, will follow up with cardiology regarding echo results and recommendations for continued diuresis. Will continue to trend troponin, continues to increase mildly likely secondary to demand ischemia in setting of septic possibly obstructive shock, will follow up with cardiology team as well. For ARIANA findings, will hold on additional fluids for now, IVC was assessed and not suggesting fluid responsiveness, will continue diuresis and trend renal function panel. Светлана Dotson DO PGY-3 HPI Data of Consult Patient: new to practice Consult date: 08/10/24 Requesting Physician: Oscar Oliveira DO Admitting Provider: Oscar Oliveira DO Attending Provider: Idalmis Murry MD Primary Care Provider: Physician No Primary/Family Consult Narrative History of present illness: Mr. Bella is a 64-year-old male with a past medical history of hypertension, hyperlipidemia, CAD, diabetes mellitus type 2 insulin-dependent, CHF (unknown ejection fraction), atrial fibrillation, history of seizures, who presented to [facility] emergency room with acute increasing dyspnea and increasing cough. Patient stated that he has been having increasing pleuritic chest pain secondary to productive cough. Patient stated his cough is productive. Come into the emergency room today after being unable to reach the restroom because of increasing shortness of breath. Patient denied typically here with increasing wheezing. Patient denied any sick contacts. Increased perspiration. Increased orthopnea. Increasing shortness of breath. Negative paroxysmal nocturnal orthopnea. Positive for diarrhea. Increased bilateral swelling. History of BPH. History of depression. Patient was admitted on 08/09/2024 for CHF exacerbation and influenza A. Patient history of recent travel, recently moved to [place] from [place]. Patient had a rapid response called earlier this morning for low SpO2 84% despite 8 L of oxygen patient had increased work of breathing was tachypneic with circulation intact, patient was started on IV steroids, IV antibiotics. Eventually patient had another rapid response called for altered mental status, patient was noted to be unresponsive to verbal Kaman, responsive to only painful stimuli, patient is GCS of 7 was unable to protect airway, aspiration noted at bedside and patient was emergently intubated. At bedside patient noted to have pink frothy aspirate, high suspicion of pulmonary edema, patient upgraded to intensive care unit for further management. Patient eventually had a central line and arterial line placed. Attempt was made to reach out to patient's emergency contact, but none was available, eventually contacted patient's friend and primary decision maker Rodrigo Schneider. cc:: cc: Oscar Oliveira DO Review of Systems Review of Systems ROS Unobtainable: unobtainable due to mental status, unobtainable due to medical condition and due to endotracheal tube Past Medical History Past Medical History Comments PMH COMMENT: PMH: -Diabetes Mellitus Type 2 insulin dependent -Hypertension -Hyperlipidemia -CAD/[place] -CHF Lasix 40 IV push daily added, currently holding home medication of spironolactone given unknown ejection fraction. -Atrial fibrillation on Eliquis (currently holding given possible CT-guided biopsy for nodules noted on chest x-ray) -COPD, recent diagnosis no medication on board -History of seizures -History of depression -BPH -Spinal Stenosis s/p surgery Past Surgical History: -Appendectomy -Disc repair secondary to spinal stenosis Social History: [id number] history, smoked for 20 years about 2 packs/day, quit 15 years ago Denied alcohol use Denied illicit drug use Allergies: Atorvastatin Lisinopril Bactrim Code Status: Full code Exam Vital Signs Temp Pulse Resp BP Pulse Ox O2 Del Method O2 Flow Rate 98.7 F 50 L 39 H 56/55 L 54 L Oxy Mask 15 08/10/24 12:00 08/10/24 15:12 08/10/24 12:12 08/10/24 15:12 08/10/24 15:12 08/10/24 12:00 08/10/24 11:39 FiO2 100 08/10/24 15:12 Narrative Exam General: AAOx0, intubated, sedated dishelved, morbidly obese man, unkempt, bearded male HEENT: Moist mucous membranes, conjunctiva clear, EOMI,skin tags present, right IJ central line Cardiovascular: Pansystolic murmur ausculated upon mitral valve and R sternal border, no carotid bruit appreciated, radial pulses +2 bilat, irregularly irregular, Radial A-line present, bilat wrist restraints present Pulmonary: Crackles appreciated bilaterally, patient on mechanical ventilation, intubated GI: No ascites noted, bowel sounds present, however, abd obesity Extremities: venous stasis noted, unkempt feet, +2 bilat edema in LE Neuro: Unable to assess due to patient's current condition Results Labs 08/11/24 03:13 08/11/24 03:13 Labs: Short CBC 08/10/24 08/10/24 Range/Units 04:47 11:55 WBC 9.3 14.8 H D (3.8-10.6) Thou/mm3 Hgb 11.9 L 13.0 L (13.5-16.0) g/dL Hct 36.6 L 41.1 (41.0-53.0) % Plt Count 185 240 D (140-440) Thou/mm3 BMP 08/10/24 08/10/24 04:47 11:55 Sodium 133 L 132 L Potassium 4.2 4.3 Chloride 99 99 Carbon Dioxide 22.2 19.6 L BUN 34 H 37 H Creatinine 1.6 H 1.8 H Glucose 157 H D 228 H D Calcium 8.6 8.8 Cardiac Enzymes 08/09/24 08/10/24 08/10/24 Range/Units 20:06 04:47 11:55 Troponin I 0.059 H* 0.070 H* 0.095 H* (0.0-0.045) ng/mL 08/10/24 Range/Units 15:48 Troponin I 0.170 H* (0.0-0.045) ng/mL Liver Function 08/10/24 Range/Units 04:47 Total Bilirubin 0.7 (0.3-1.2) mg/dL AST 17 (0-34) U/L ALT 10 (10-49) U/L Alkaline Phosphatase 41 L (46-116) U/L Albumin 4.1 (3.4-4.8) gm/dL ABG Interpretation ABG results: 08/10/24 08/10/24 08/10/24 11:34 13:55 16:46 ABG pH 7.21 L 6.97 L* D 6.99 L* ABG pCO2 49 H 95 H* D 78 H* D ABG pO2 60 L 64 L 41 L* D ABG HCO3 20 22 19 L ABG O2 Saturation 86 L 80 L 58 L ABG Base Excess -8 L -12 L -14 L Quality Measures Quality Measures none Medications Home Medications and Allergies Allergies Allergy/AdvReac Type Severity Reaction Status Date / Time atorvastatin Allergy Verified 08/09/24 13:49 lisinopril Allergy Verified 08/09/24 13:49 sulfamethoxazole Allergy Verified 08/09/24 13:49 [From Bactrim] trimethoprim [From Bactrim] Allergy Verified 08/09/24 13:49 Visit Medications Hydrocodone Bitart/Acetaminophen (Hydrocodone/Apap 5/325 Tablet) 1 tab PO Q4HR PRN PRN Reason: PAIN SCALE 4-6 (Moderate Stop: 08/14/24 15:19 Albuterol/Ipratropium (Albuterol/Ipratropium (Duoneb) Rt Aspen 3 Ml Nebu) 3 ml INH Q6HRRT [facility] Stop: 09/08/24 18:59 Last Admin: 08/10/24 12:24 Dose: 3 ml Amlodipine Besylate (Amlodipine Besylate 5 Mg Tablet) 5 mg PO QDAY [facility] Stop: 09/09/24 08:59 Last Admin: 08/10/24 09:25 Dose: 5 mg Aspirin (Aspirin Ec 81 Mg Tabec) 81 mg PO QDAY [facility] Stop: 09/10/24 08:59 Rosuvastatin 20 Mg 0 ea PO HS [facility] Stop: 09/08/24 20:59 Last Admin: 08/09/24 20:31 Dose: 1 tablet Dextrose (Dextrose 50%-Water Inj 50 Ml Syringe) 25 ml IV Q15MIN PRN PRN Reason: BG 50-70 responsive npo pt Stop: 09/08/24 15:30 Dextrose (Dextrose 50%-Water Inj 50 Ml Syringe) 50 ml IV Q15MIN PRN PRN Reason: BG <50 OR BG <70 & pt unresponsive Stop: 09/08/24 15:30 Furosemide (Furosemide Inj 10 Mg/Ml 4ml Vial) 40 mg IVP BID [facility] Stop: 09/09/24 20:59 Glucagon (Glucagon Inj 1 Mg Vial) 1 mg IM Q15MIN PRN PRN Reason: BG <70, and no IV access Guaifenesin/Dextromethorphan (Guaifenesin/Dm Tablet) 1 each PO Q4HR PRN PRN Reason: COUGH Stop: 09/08/24 15:18 Azithromycin 500 mg/ Sodium (Chloride) 250 mls @ 250 mls/hr IV QDAY [facility] Stop: 08/17/24 11:25 Last Admin: 08/10/24 12:26 Dose: 250 mls/hr Fentanyl Citrate (Sublimaze Inj 2,500 Mcg/250 Ml Bag) 2,500 mcg in 250 mls @ 2.5 mls/hr IV .Q24H PRN; Protocol PRN Reason: PER PROTOCOL Stop: 08/15/24 14:19 Last Admin: 08/10/24 15:17 Dose: 25 mcg/hr, 2.5 mls/hr Vasopressin/Sodium Chloride (Vasostrict/Ns Ivpb) 20 unit in 100 mls @ 9 mls/hr IV .Q11H7M PRN; Protocol PRN Reason: PER PROTOCOL Stop: 09/09/24 14:52 Last Admin: 08/10/24 15:06 Dose: 0.03 unit/min, 9 mls/hr Norepinephrine/Dextrose (Levophed In D5w 8mg/250ml) 8 mg in 250 mls @ 14.738 mls/hr IV .[id number] PRN; Protocol PRN Reason: PER PROTOCOL Stop: 09/09/24 15:29 Last Titration: 08/10/24 15:32 Dose: 0.21 mcg/kg/min, 61.898 mls/hr Piperacillin Sod/Tazobactam (Sod 4.5 gm/ Sodium Chloride) 100 mls @ 200 mls/hr IV Q6HR [facility] Stop: 08/17/24 15:30 Vancomycin HCl 2,000 mg/ (Sodium Chloride) 500 mls @ 150 mls/hr IV X1 ONE Stop: 08/10/24 19:04 Vancomycin HCl (Vancomycin/Water 1250 Mg Ivpb) 250 mls @ 120 mls/hr IV Q12H [facility] Stop: 08/18/24 09:59 Insulin Glargine (Insulin Glargine (Lantus) 5 Unit/0.05 Ml (Per 5 Units)) 12 unit SC [facility] Stop: 09/08/24 20:59 Last Admin: 08/09/24 20:20 Dose: 12 unit Insulin Human Lispro (Insulin Lispro (Admelog) 1 Unit/0.01 Ml Unit) 0 unit SC [facility]; Protocol Stop: 09/08/24 16:59 Last Admin: 08/10/24 12:05 Dose: 3 unit Methylprednisolone Sodium Succinate (Methylprednisolone Sod Succ 40 Mg Vial) 40 mg IVP Q6H [facility] Stop: 08/17/24 20:59 Mirtazapine (Mirtazapine 15 Mg Tablet) 45 mg PO HS [facility] Stop: 09/08/24 20:59 Last Admin: 08/09/24 20:13 Dose: 45 mg Ondansetron HCl (Ondansetron Inj 2 Mg/Ml Inj 2 Ml) 4 mg IV Q6H PRN; Protocol PRN Reason: NAUSEA OR VOMITING Stop: 09/08/24 15:19 Oseltamivir Phosphate (Oseltamivir 75 Mg Capsule) 75 mg PO BID [facility] Stop: 08/13/24 21:01 Last Admin: 08/10/24 09:24 Dose: 75 mg Pantoprazole Sodium (Pantoprazole Inj 40 Mg Vial) 40 mg IVP QDAY [facility] Stop: 09/08/24 15:29 Last Admin: 08/10/24 09:24 Dose: 40 mg Paroxetine HCl (Paroxetine Hcl 10 Mg Tablet) 40 mg PO HS [facility] Stop: 09/08/24 20:59 Last Admin: 08/09/24 20:13 Dose: 40 mg Pharmacy Consult (Vancomycin Pharmacy To Dose 1 Each Each) 1 each IV QDAY PRN PRN Reason: CONSULT Stop: 09/09/24 15:29 Risperidone (Risperidone 1 Mg Tablet) 6 mg PO HS [facility] Stop: 09/08/24 20:59 Last Admin: 08/09/24 20:13 Dose: 6 mg Tamsulosin HCl (Tamsulosin Hcl 0.4 Mg Capsule) 0.4 mg PO QDAY [facility] Stop: 09/08/24 15:59 Last Admin: 08/10/24 09:25 Dose: 0.4 mg Topiramate (Topiramate 25 Mg Tablet) 50 mg PO HS [facility] Stop: 09/08/24 20:59 Last Admin: 08/09/24 20:13 Dose: 50 mg Discontinued Medications Acetaminophen (Acetaminophen 325 Mg Tablet) 650 mg PO Q6H PRN PRN Reason: Mild Pain 1-3 or Fever >100.4 Stop: 09/08/24 15:19 Albuterol/Ipratropium (Albuterol/Ipratropium (Duoneb) Rt Aspen 3 Ml Nebu) 3 ml INH X1 ONE Stop: 08/10/24 11:31 Last Admin: 08/10/24 11:38 Dose: 3 ml Apixaban (Apixaban 2.5 Mg Tablet) 5 mg PO BID [facility] Stop: 09/08/24 20:59 Atorvastatin Calcium (Atorvastatin Calcium 20 Mg Tablet) 80 mg PO HS [facility] Stop: 09/08/24 20:59 Rosuvastatin 20 Mg 0 ea PO HS [facility] Stop: 09/08/24 16:44 Last Admin: 08/09/24 17:49 Dose: Not Given Rosuvastatin 20 Mg 0 ea PO HS [facility] Stop: 09/08/24 16:44 Ferrous Sulfate (Ferrous Sulf 325 Mg Tablet) 325 mg PO QOD [facility] Stop: 09/09/24 07:44 Last Admin: 08/10/24 09:24 Dose: 325 mg Furosemide (Furosemide Inj 10 Mg/Ml 4ml Vial) 40 mg IVP QDAY [facility] Stop: 09/08/24 15:44 Last Admin: 08/10/24 09:24 Dose: 40 mg Furosemide (Furosemide Inj 10 Mg/Ml 4ml Vial) 40 mg IVP X1 ONE Stop: 08/10/24 11:34 Last Admin: 08/10/24 11:44 Dose: 40 mg Heparin Sodium (Porcine) (Heparin Sod Inj 5000 Unit/Ml Vial) 5,000 unit SC Q12HR [facility] Stop: 08/23/24 20:59 Ceftriaxone Sodium/Dextrose (Rocephin/D5w 1gm Iv Premix) 50 mls @ 100 mls/hr IV QDAY [facility] Stop: 08/17/24 11:25 Last Admin: 08/10/24 11:50 Dose: 100 mls/hr Methylprednisolone Sodium Succinate (Methylprednisolone Sod Succ 62.5 Mg/Ml 2ml Vial) 125 mg IV X1 ONE Stop: 08/10/24 11:28 Last Admin: 08/10/24 11:43 Dose: 125 mg Methylprednisolone Sodium Succinate (Methylprednisolone Sod Succ 40 Mg Vial) 40 mg IVP Q6HR [facility] Stop: 08/17/24 12:14 Last Admin: 08/10/24 12:20 Dose: Not Given Sevelamer Carbonate (Sevelamer Carbonate 800 Mg Tablet) 800 mg PO X1 ONE Stop: 08/10/24 07:58 Last Admin: 08/10/24 09:24 Dose: 800 mg Sodium Chloride (Sodium Chloride Rt 10% 15 Ml Nebu) 5 ml INH X1 ONE Stop: 08/09/24 15:21 Sodium Chloride (Sodium Chloride Rt 10% 15 Ml Nebu) 5 ml INH X1 ONE Stop: 08/10/24 14:19 Assessment & Plan Plan Assessment and Plan Summary: Mr. Bella is a 64-year-old male with past medical history of hypertension, hyperlipidemia, coronary artery disease, type diabetes mellitus insulin-dependent, CHF, atrial fibrillation, history of seizures who was admitted to [facility] for management of CHF exacerbation and influenza A. Patient upgraded to ICU after emergent intubation post worsening of mentation and bedside aspiration with inability to protect airway. Neurological #Acute metabolic encephalopathy Differential diagnosis: Secondary to acute hypoxic/hypercapnic respiratory failure, underlying acidosis, underlying sepsis, polypharmacy Diagnostic workup: Patient had altered mental status, unable to protect airway, ABG pH 6.97, pCO2 95, pO2 64 Home medication includes risperidone 6 mg at bedtime, mirtazapine 45 mg at bedtime, and paroxetine 40 mg at bedtime for depression Treatment: -Patient intubated started on mechanical ventilation -Correct underlying acidosis -Started on IV antibiotics Follow-up: -Follow-up serial ABGs -Optimize mechanical ventilator settings -Consider CT head -Consider holding home psych medications #History of seizures Patient has a past medical history of seizures, last seizure was several years ago and patient cannot recall but has been stable. Home medication topiramate 50 mg HS. Differential diagnosis: Low suspicion of seizure, no seizure-like activity noted Diagnostic workup: Will monitor for seizures/seizure-like activity Treatment: -Continue topiramate 50 mg at bedtime Cardiology #Shock Differential diagnosis: Distributive (septic shock due to underlying pneumonia/influenza A) versus obstructive shock (pulmonary embolism) versus cardiogenic shock Diagnostic workup: Patient is influenza A positive, significant aspiration noted bedside, suspicion of underlying aspiration pneumonia Chest x-ray significant for interval severe bilateral pneumonia Patient had recent travel from [place], is on Eliquis at home for underlying atrial fibrillation, high suspicion of PE, Wells score Patient does have history of coronary artery disease, EKG on admission showed no ST elevation, mild troponin elevation noted Treatment: -Started on vasopressin and levophed, maintain MAP more than 65 -Patient on Tamiflu, will continue -Continue Zosyn, azithromycin, vancomycin (08/10- Follow-up: -follow troponin every 6 hours -Repeat EKG -Ordered CTA chest -Follow lactate levels -We have no evidence to start anticoagulation therapy for suspected underlying PE #Congestive heart failure exacerbation, HFpEF EF 55 to 60% # Mild aortic stenosis, mitral stenosis Differential diagnosis: Systolic versus diastolic heart failure Diagnostic workup: Patient complained of dyspnea at baseline, orthopnea on admission, 2+ leg edema bilaterally just below the knees, BNP 275 Repeat 618 Patient on Lasix at home, last ejection fraction unknown, echo done during this hospitalization Echo significant for Normal LV size and function. Mild LVH. Estimated EF 55-60%. Cannot determine diastolic function due to AFib. Mildly dilated RV and normal RV function. Could not visualize TR or tricuspid valve well. Unable to estimate RVSP and PAH. All valves poorly visualized. Mild AV stenosis, max gradient 33mmHg, vmax 2.8m/s. Mild AI and Mild AI IVC dilated Treatment: -Patient received 80 mg Lasix this morning, will give another 80 mg today -Will continue with diuresis -Consulted cardiology, appreciate recommendations Follow-up: -Monitor urine output #Atrial fibrillation Differential diagnosis: Patient has history of A-fib, currently rate controlled Diagnostic workup: EKG shows atrial fibrillation, irregular rate noted on telemetry at bedside, rate controlled Treatment: -Will consider IV amiodarone if patient in atrial fibrillation with rapid ventricular response -On Eliquis at home for A-fib Follow-up: -Telemonitoring #Elevated troponin Differential diagnosis: Demand ischemia, NSTEMI type Diagnostic workup: EKG negative for ST elevation Serial troponins noted to be elevated Troponins mildly elevated, high suspicion of demand ischemia, repeat EKG negative Treatment: -Will trend troponin every 6 hours Follow-up: -Will consider EKG, 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 Patient takes rosuvastatin 40 mg at bedtime. Patient has a past medical history of hypertension on losartan. Patient started on amlodipine 5 mg due to ARIANA during this hospitalization, will hold in setting of shock. Pulmonary #Acute hypoxic/hypercapnic respiratory failure secondary to #Influenza A #Aspiration pneumonia versus pulmonary edema #COPD exacerbation Differential diagnosis: Influenza A, aspiration pneumonia, COPD exacerbation, pulmonary embolism Diagnostic workup: Bedside influenza A positive, active aspiration event noted Worsening of chest x-ray noted Patient has history of COPD, about 40 pack years Treatment: -DuoNeb every 4 hours -IV methylprednisone -Continue Zosyn, vancomycin and azithromycin (08/10- -Continue IV Lasix -Patient on mechanical ventilation Follow-up: -Ordered CTA chest -Optimize mechanical ventilator settings -Follow blood gas -Follow sputum culture Gastrointestinal GI prophylaxis IV Protonix daily Renal/Genitourinary #Acute kidney injury Differential diagnosis: Prerenal versus ATN in setting of ischemia Diagnostic workup: Elevated creatinine 1.6 on admission likely reflecting an ARIANA. Baseline unknown. Patient was not given fluids in setting of possible CHF exacerbation Treatment: -Will monitor renal function -Consulted pharmacy to dose medications renally -Avoid nephrotoxic agents Follow-up: -Follow renal panel in a.m. Endocrine #Type 2 diabetes mellitus, insulin-dependent Patient has a past medical history of diabetes mellitus type 2 Home medication include Lantus 12 units, Januvia (Sitagliptin), Jardiance (Empagliflozin), and Ozempic. Patient stated he has lost about 120 lbs. Diagnostic workup: Hemoglobin A1c 7.1 Treatment: -Lispro sliding scale every 6 hours -Lantus 12 units Follow-up: -Monitor fingerstick blood glucose every 6 hours Hematology #Leukocytosis Possibly due to underlying sepsis Infectious Disease #Influenza A #Pneumonia -See respiratory system for details Integumentary #Bilateral venous stasis Differential diagnosis: Chronic venous insufficiency Treatment: Wound care as needed DVT prophylaxis: Heparin GI prophylaxis: Protonix Diet: N.p.o. Lines: Peripheral IV, right IJ central line, right circumflex A-line Code status: Full code Catheter: [place] catheter, inserted 08/10 Case discussed with Attending Dr. Murry and Dr. Dotson PGY3. Ju Saez PGY1
--- NOTE | 2024-08-10 17:33 | ESOP_ITS ---
<Statement entered by Idalmis Murry MD - 08/12/24 08:06> I was present for the critical and simmons portions of the procedure and was immediately available to provide assistance. Procedures Procedure Date / Time 08/10/24 3551 Arterial Line Indication(s): hypoxic resp failure and shock Informed consent obtained: procedure done urgently Time out done, and the following verified: correct patient, side and site, procedure and patient position Size (Gauge): 20 Technique used: guide wire technique Post-Procedure: line sutured into place and dry sterile dressing placed Patient tolerated procedure: well Complications: none Site: right Procedure comment: Initially right radial artery cannulation attempted by Dr. Saez PGY1, then attempted by myself slow pulsatile bleed back acquired with visualization of nee dle tip in radial artery x 2 however unable to pass guidewire for successfully advance catheter. Alternative site of right axillary artery was then selected on ultrasound and prepped and draped in sterile fashion from infrapectoral approach, procedure completed successfully without complication good waveform corresponding with noninvasive blood pressure cuff displayed on monitor. Blood noted to be dark and initial ABG drawn after placement pO2 40 Central Line Placement Right IJ: Indication(s): shock Informed consent obtained: procedure done urgently Time out done, and the following verified: correct patient, side and site, procedure, patient position and implants and/or equipment Patient placed on monitor/pulse ox: Yes Hand Hygiene: alcohol-based hand rub Max Sterile Barrier Techniques used: cap, mask, sterile gown, sterile gloves and sterile full body drape Central line prep: Chlorhexidine scrub Ultrasound used for placement: Yes Sterile Technique if Ultrasound used, including sterile gel: yes Central line lumen inserted: triple Post procedure: sutured in place, good blood return, all ports aspirated, flushed, capped and sterile dressing applied Post procedure x-ray: tip of catheter in good position and no pneumothorax seen Patient tolerated procedure: well and no complications Complications: none Intubation Indication(s): acute Resp Failure and inability to protect airway Informed consent obtained: procedure done urgently Time out done, and the following verified: correct patient, side and site, procedure, patient position and implants and/or equipment Sedative: none Laryngoscope: other (Glidescope 4) ET tube size: 8 ET tube uncuffed: Yes Tube secured depth (cm): 26 Tube secured location: teeth Tube placement confirmation: visualized tube passing through cords and equal breath sounds bilaterally Patient tolerated procedure: well Intubation complications: hypoxia Additional comments: Patient obtunded in acute hypoxic respiratory failure, upon arrival to the room patient was on BiPAP shortly after started to aspirate and was emergently intubated, patient was unresponsive spontaneously breathing throughout intubation.
[2024-08-10 18:12] LABS: Lactic Acid, 3 HR 4.6 mMol/L (0.4-2.0)
[2024-08-10] MEDS: Norepinephrine/D5W 8mg/250ml 8 MG/250 ML BAG 97.268 MG IV ×2 (18:13→20:41)
[2024-08-10] MEDS: Vancomycin Inj 2,000 MG in SODIUM CHLORIDE 0.9% 500 ML 500 ML 150 MG IV (18:15)
[2024-08-10] MEDS: PIPER/TAZO INJ 4.5 GM in SODIUM CHLORIDE 0.9% 100 ML IV (18:15)
[2024-08-10 19:37] LABS: Base Excess -13 (-3-3); HCO3 19 mEq/L (20-26); Inspired Oxygen, FIO2 100 %; O2 Saturation 72 % (91-98); PCO2 75 mmHg (32.0-48.0)
[2024-08-10 19:38] LABS: Allen Test Not Performed; Puncture Site Arterial Line
[2024-08-10 19:40] LABS: PO2 47 mmHg (83-108); pH, Arterial 7.01 (7.35-7.45)
[2024-08-10] MEDS: SODIUM BICARB INJ 8.4% 1 mEq/ML VIAL 50 ML 50 MEQ IV ×2 (20:14→21:49)
[2024-08-10] MEDS: FUROSEMIDE INJ 10 MG/ML 4ML VIAL 80 MG IVP (20:47)
[2024-08-10 21:18] LABS: Base Excess -11 (-3-3); HCO3 20 mEq/L (20-26); Inspired Oxygen, FIO2 100 %; O2 Saturation 87 % (91-98); PCO2 69 mmHg (32.0-48.0); PO2 61 mmHg (83-108)
[2024-08-10] MEDS: MIRTAZAPINE 15 MG TABLET 45 MG PO (21:28)
[2024-08-10] MEDS: TOPIRAMATE 25 MG TABLET 50 MG PO (21:28)
[2024-08-10] MEDS: PARoxetine HCL 10 MG TABLET 40 MG PO (21:29)
[2024-08-10] MEDS: risperiDONE 1 MG TABLET 6 MG PO (21:29)
[2024-08-10] MEDS: ROSUVASTATIN 20 MG PO (21:31)
[2024-08-10 21:34] LABS: Allen Test Not Performed; Puncture Site Arterial Line
[2024-08-10 21:35] LABS: pH, Arterial 7.08 (7.35-7.45)
[2024-08-10] MEDS: INSULIN GLARGINE (Lantus) 5 UNIT/0.05 ML (PER 5 UNITS) 12 UNIT SC (22:04)
[2024-08-11] VITALS (116 sets, daily range): BP systolic 89–177; BP diastolic 39–94; PULSE 60–109; RESP 23–38; TEMP 36.6–40; O2SAT 89–100; BMI 44.1
[2024-08-11] MEDS: ALBUTEROL/IPRATROPIUM (Duoneb) RT SOL 3 ML NEBU INH ×3 (00:03→12:30)
[2024-08-11] MEDS: Norepinephrine/D5W 8mg/250ml 8 MG/250 ML BAG 79.583 MG IV ×3 (00:04→06:24)
[2024-08-11] MEDS: PIPER/TAZO INJ 4.5 GM in SODIUM CHLORIDE 0.9% 100 ML IV ×4 (00:21→19:30)
[2024-08-11] MEDS: INSULIN LISPRO (AdmeLOG) 1 UNIT/0.01 ML UNIT SC ×2 (00:39→06:17)
[2024-08-11 00:41] LABS: Base Excess -10 (-3-3); HCO3 20 mEq/L (20-26); O2 Saturation 96 % (91-98); PCO2 60 mmHg (32.0-48.0); PO2 83 mmHg (83-108)
[2024-08-11 00:42] LABS: Allen Test Not Performed; Inspired Oxygen, FIO2 100 %; Puncture Site Arterial Line
[2024-08-11 00:43] LABS: pH, Arterial 7.14 (7.35-7.45)
[2024-08-11] MEDS: VASOPRESSIN IN NS IVPB 20 UNIT/100 ML BAG 9 UNIT IV ×3 (02:09→22:31)
[2024-08-11 03:24] LABS: Lactate (Lactic Acid) 2.3 mMol/L (0.4-2.0)
[2024-08-11 03:30] LABS: Basophils % (Auto) 0 % (0-2.5); Eosinophils % (Auto) 0 % (0-10); Hematocrit 42.8 % (41.0-53.0); Hemoglobin 13.4 g/dL (13.5-16.0); Immature Granulocytes % (Auto) 1 % (0-0); Immature Granulocytes Auto 0.08 Thou/mm3 (0.00-0.00); Lymphocytes # (Auto) 0.7 Thou/mm3 (1.0-4.8); Lymphocytes % (Auto) 4 % (10-50); Mean Corpuscular HGB Conc 31.3 g/dl (31.0-37.0); Mean Corpuscular Hemoglobin 27.3 pg (25.0-35.0); Mean Corpuscular Volume 87 fL (80-100); Monocytes # (Auto) 0.6 Thou/mm3 (0.0-0.8); Monocytes % (Auto) 3 % (0-12); Neutrophils # (Auto) 16.1 Thou/mm3 (1.8-7.7); Neutrophils % (Auto) 92 % (37-80); Nucleated Red Blood Cell % 0 /100 WBC (0); Platelet Count 219 Thou/mm3 (140-440); RDW Standard Deviation 46.6 fL (35.1-43.9); White Blood Count 17.6 Thou/mm3 (3.8-10.6)
[2024-08-11 04:18] LABS: Base Excess -10 (-3-3); HCO3 19 mEq/L (20-26); O2 Saturation 99 % (91-98); PCO2 54 mmHg (32.0-48.0); PO2 114 mmHg (83-108)
[2024-08-11 04:19] LABS: Allen Test Not Performed; Inspired Oxygen, FIO2 85 %; Puncture Site Arterial Line
[2024-08-11 04:20] LABS: Alanine Aminotransferase 254 U/L (10-49); Albumin, Serum 3.6 gm/dL (3.4-4.8); Albumin/Globulin Ratio 1.3 (1.2-2.2); Alkaline Phosphatase 30 U/L (46-116); Anion Gap 12 (7-16); Aspartate Amino Transferase 553 U/L (0-34); BUN/Creatinine Ratio 18 Ratio (12-20); Bilirubin,Total 1.6 mg/dL (0.3-1.2); Blood Urea Nitrogen 53 mg/dL (9-23); Calcium 7.9 mg/dL (8.3-10.6); Calcium (Corrected) 8.2 mg/dL (8.5-10.1); Carbon Dioxide 19.9 mMol/L (20.0-31.0); Chloride 99 mMol/L (98-107); Creatinine (Component) 2.9 mg/dL (0.6-1.3); Estimated Creatinine Clearance 40.7 mL/min (>60); Globulin 2.7 gm/dL (2.3-3.5); Glucose 353 mg/dL (74-106); Magnesium 2.1 mg/dL (1.6-2.6); Osmolality,Calculated 291 (275-295); Potassium 4.8 mMol/L (3.4-5.1); Sodium 131 mMol/L (136-145); Total Protein 6.3 gm/dL (5.7-8.2); eGFR 23 See Note
[2024-08-11 04:20] LABS: pH, Arterial 7.16 (7.35-7.45)
[2024-08-11] MEDS: ACETAMINOPHEN 325 MG TABLET 650 MG PO (06:15)
[2024-08-11] MEDS: HEPARIN SOD INJ 5000 UNIT/ML VIAL SC ×3 (06:17→22:10)
[2024-08-11 06:18] LABS: Reflex Lactate? Y
[2024-08-11 07:36] LABS: Lactic Acid, 3 HR 2.6 mMol/L (0.4-2.0)
[2024-08-11] MEDS: FUROSEMIDE INJ 10 MG/ML 4ML VIAL 40 MG IVP (08:17)
[2024-08-11] MEDS: TAMSULOSIN HCL 0.4 MG CAPSULE PO (08:18)
[2024-08-11] MEDS: ASPIRIN EC 81 MG TABEC PO (08:18)
[2024-08-11] MEDS: OSELTAMIVIR 75 MG CAPSULE PO (08:18)
[2024-08-11] MEDS: PANTOPRAZOLE INJ 40 MG VIAL IVP (08:18)
--- NOTE | 2024-08-11 08:45 | XR_ITS ---
Examination: Retroperitoneal ultrasound, complete Technique: Multiple high resolution grayscale images of the retroperitoneum obtained, including kidneys and bladder. Exam date and time:August 11, 2024 1150 hours INDICATIONS: Acute renal insufficiency, diagnosis acute renal injury this week FINDINGS: Right kidney 10.8 x 5.4 x 4.3 cm cortex 2.1 cm Left kidney 12.6 x 5.9 x 6.3 cm cortex 2.4 cm Mild bilateral renal parenchymal scar formation No hydronephrosis Bladder contracted Prostate 4.8 x 2.8 x 3.7 cm no prostate nodules IMPRESSION: Mild bilateral renal parenchymal scar formation No hydronephrosis
--- NOTE | 2024-08-11 08:51 | XR_ITS ---
Examination: CT abdomen with intravenous contrast CT pelvis with intravenous contrast 2-D coronal reconstructions 2-D sagittal reconstructions Date and time of exam:August 11, 2024 1008 hours INDICATIONS: Hypoxic respiratory failure, abdominal pain this week. CTDI: vol (mGy) 22.6 DLP: (mGycm) 1516 Technique: Multiple axial sections of the abdomen and pelvis have been obtained. 64 slice high-resolution scanner used. 3 mm axial sections have been obtained, post intravenous injection 80 cc Isovue-300 2-D sagittal, coronal reconstructions obtained. Low dose protocols were performed. One or more of the following dose reduction techniques were used; automated exposure control, adjustment of the mA and/or KV according to patient size, use of iterative reconstruction technique. Findings: Severe bilateral lung opacity Small bilateral pleural effusions Orogastric tube in the stomach satisfactory position No focal liver or splenic lesions No definite gallstones No pancreatic or adrenal mass No hydronephrosis 1 mm anterior left renal calculus No ureteral calculi Aorta normal size No bowel obstruction No pericecal inflammatory change Scattered colonic diverticulosis Abundant stool in the rectum No significant prostatomegaly Urinary bladder contracted around a [place] catheter Severe osteopenia with moderate diffuse lumbar disc narrowing IMPRESSION: Severe bilateral pneumonia ARDS pattern Orogastric tube in the stomach 1 mm nonobstructing left renal calculus, no hydronephrosis No CT findings of bowel obstruction diverticulitis or free air
--- NOTE | 2024-08-11 08:53 | XR_ITS ---
Examination: CTA chest with intravenous contrast 2-D reconstructions 3-D reconstructions, vascular Date and time of exam: August 11, 2024 1008 hours INDICATIONS: Hypoxic respiratory failure, postintubation CTDI: vol (mGy) 19.6 DLP: (mGycm) 716 Technique: Multiple axial sections of the thorax have been obtained. 3 mm slice thickness, from below the hemidiaphragms to above the apices of the lungs. Mediastinal and lung density settings have been obtained. 2-D sagittal and coronal reconstructions. 3-D angiographic renderings, 3-D volume renderings, 3D post processing, vascular maximum intensity projections obtained. Contrast administered is 80 cc Isovue-300. Low dose protocols were performed. One or more of the following dose reduction techniques were used; automated exposure control, adjustment of the mA and/or KV according to patient size, use of iterative reconstruction technique. Findings: Left thyromegaly with 30 mm left thyroid nodule Tracheal tube tip 3 cm above ioana Severe bilateral lung opacity Thoracic aorta is not enlarged Main pulmonary artery segment measures 37 mm No filling defects in the pulmonary artery are identified Mild enlargement left atrium left ventricle Orogastric tube in the stomach IMPRESSION: Left thyromegaly with 30 mm left thyroid nodule Severe bilateral pneumonia ARDS pattern Main pulmonary artery segment measures 37 mm Negative for pulmonary artery emboli
--- NOTE | 2024-08-11 08:54 | PC.PT ---
Patient is on mechanical ventilation in the ICU. Will cancel PT eval and wait until patient is off mechanical ventilation.
--- NOTE | 2024-08-11 09:29 | PD.RESPRO ---
Documentation for date of: 08/11/24 Exam Vital Signs Temp Pulse Resp BP Pulse Ox O2 Del Method O2 Flow Rate 103.1 F H 68 29 H 137/65 H 92 L Mechanical Ventilation 15 08/11/24 08:00 08/11/24 09:00 08/11/24 06:09 08/11/24 09:00 08/11/24 09:00 08/10/24 19:30 08/10/24 11:39 FiO2 50 08/11/24 06:09 Objective Labs 08/11/24 03:13 08/11/24 03:13 Labs: Laboratory Results - last 24 hr 08/09/24 08/10/24 08/10/24 20:06 11:34 11:55 WBC 14.8 H D RBC 4.76 Hgb 13.0 L Hct 41.1 MCV 86 MCH 27.3 MCHC 31.6 RDW Std Deviation 46.5 H Plt Count 240 D Neut % (Auto) 89 H Lymph % (Auto) 3 L [place] % (Auto) 8 Eos % (Auto) 0 Baso % (Auto) 0 Neut # (Auto) 13.1 H Lymph # (Auto) 0.4 L [place] # (Auto) 1.2 H Eos # (Auto) 0.0 Baso # (Auto) 0.0 Immature Gran # (Auto) 0.06 H Absolute Nucleated RBC 0.00 Immature Gran % 0 Nucleated RBC % 0 Puncture Site Right Radial ABG pH 7.21 L ABG pCO2 49 H ABG pO2 60 L ABG HCO3 20 ABG O2 Saturation 86 L ABG Base Excess -8 L Oxygen Liter Flow 8 FiO2 Sodium 132 L Potassium 4.3 Chloride 99 Carbon Dioxide 19.6 L Anion Gap 13 BUN 37 H Creatinine 1.8 H Estim Creat Clear Calc 65.8 eGFR 42 L BUN/Creatinine Ratio 21 H Glucose 228 H D Calculated Osmolality 280 Lactic Acid 2.2 H Calcium 8.8 Corrected Calcium Phosphorus Magnesium Total Bilirubin AST ALT Alkaline Phosphatase Troponin I 0.095 H* B-Natriuretic Peptide 618 H* Total Protein Albumin Globulin Albumin/Globulin Ratio Coccidioides IgM Ab Negative 08/10/24 08/10/24 08/10/24 13:55 15:48 16:46 WBC RBC Hgb Hct MCV MCH MCHC RDW Std Deviation Plt Count Neut % (Auto) Lymph % (Auto) [place] % (Auto) Eos % (Auto) Baso % (Auto) Neut # (Auto) Lymph # (Auto) [place] # (Auto) Eos # (Auto) Baso # (Auto) Immature Gran # (Auto) Absolute Nucleated RBC Immature Gran % Nucleated RBC % Puncture Site Right Radial Arterial Line ABG pH 6.97 L* D 6.99 L* ABG pCO2 95 H* D 78 H* D ABG pO2 64 L 41 L* D ABG HCO3 22 19 L ABG O2 Saturation 80 L 58 L ABG Base Excess -12 L -14 L Oxygen Liter Flow FiO2 100 100 Sodium Potassium Chloride Carbon Dioxide Anion Gap BUN Creatinine Estim Creat Clear Calc eGFR BUN/Creatinine Ratio Glucose Calculated Osmolality Lactic Acid Calcium Corrected Calcium Phosphorus Magnesium Total Bilirubin AST ALT Alkaline Phosphatase Troponin I 0.170 H* B-Natriuretic Peptide Total Protein Albumin Globulin Albumin/Globulin Ratio Coccidioides IgM Ab 08/10/24 08/10/24 08/10/24 17:42 19:28 20:48 WBC RBC Hgb Hct MCV MCH MCHC RDW Std Deviation Plt Count Neut % (Auto) Lymph % (Auto) [place] % (Auto) Eos % (Auto) Baso % (Auto) Neut # (Auto) Lymph # (Auto) [place] # (Auto) Eos # (Auto) Baso # (Auto) Immature Gran # (Auto) Absolute Nucleated RBC Immature Gran % Nucleated RBC % Puncture Site Arterial Line Cancelled ABG pH 7.01 L* Cancelled ABG pCO2 75 H* Cancelled ABG pO2 47 L* Cancelled ABG HCO3 19 L Cancelled ABG O2 Saturation 72 L Cancelled ABG Base Excess -13 L Cancelled Oxygen Liter Flow Cancelled FiO2 100 Cancelled Sodium Potassium Chloride Carbon Dioxide Anion Gap BUN Creatinine Estim Creat Clear Calc eGFR BUN/Creatinine Ratio Glucose Calculated Osmolality Lactic Acid 4.6 H* Calcium Corrected Calcium Phosphorus Magnesium Total Bilirubin AST ALT Alkaline Phosphatase Troponin I B-Natriuretic Peptide Total Protein Albumin Globulin Albumin/Globulin Ratio Coccidioides IgM Ab 08/10/24 08/10/24 08/11/24 21:13 21:23 00:34 WBC RBC Hgb Hct MCV MCH MCHC RDW Std Deviation Plt Count Neut % (Auto) Lymph % (Auto) [place] % (Auto) Eos % (Auto) Baso % (Auto) Neut # (Auto) Lymph # (Auto) [place] # (Auto) Eos # (Auto) Baso # (Auto) Immature Gran # (Auto) Absolute Nucleated RBC Immature Gran % Nucleated RBC % Puncture Site Arterial Line Arterial Line ABG pH 7.08 L* 7.14 L* ABG pCO2 69 H 60 H ABG pO2 61 L 83 D ABG HCO3 20 20 ABG O2 Saturation 87 L 96 ABG Base Excess -11 L -10 L Oxygen Liter Flow FiO2 100 100 Sodium Potassium Chloride Carbon Dioxide Anion Gap BUN Creatinine Estim Creat Clear Calc eGFR BUN/Creatinine Ratio Glucose Calculated Osmolality Lactic Acid Calcium Corrected Calcium Phosphorus Magnesium Total Bilirubin AST ALT Alkaline Phosphatase Troponin I 0.230 H* B-Natriuretic Peptide Total Protein Albumin Globulin Albumin/Globulin Ratio Coccidioides IgM Ab 08/11/24 08/11/24 08/11/24 03:13 04:08 07:10 WBC 17.6 H RBC 4.90 Hgb 13.4 L Hct 42.8 MCV 87 MCH 27.3 MCHC 31.3 RDW Std Deviation 46.6 H Plt Count 219 Neut % (Auto) 92 H Lymph % (Auto) 4 L [place] % (Auto) 3 Eos % (Auto) 0 Baso % (Auto) 0 Neut # (Auto) 16.1 H Lymph # (Auto) 0.7 L [place] # (Auto) 0.6 Eos # (Auto) 0.0 Baso # (Auto) 0.0 Immature Gran # (Auto) 0.08 H Absolute Nucleated RBC 0.00 Immature Gran % 1 H Nucleated RBC % 0 Puncture Site Arterial Line ABG pH 7.16 L* ABG pCO2 54 H ABG pO2 114 H D ABG HCO3 19 L ABG O2 Saturation 99 H ABG Base Excess -10 L Oxygen Liter Flow FiO2 85 Sodium 131 L Potassium 4.8 D Chloride 99 Carbon Dioxide 19.9 L Anion Gap 12 BUN 53 H Creatinine 2.9 H D Estim Creat Clear Calc 40.7 L eGFR 23 L BUN/Creatinine Ratio 18 Glucose 353 H D Calculated Osmolality 291 Lactic Acid 2.3 H 2.6 H Calcium 7.9 L Corrected Calcium 8.2 L Phosphorus 6.0 H Magnesium 2.1 Total Bilirubin 1.6 H D AST 553 H* ALT 254 H Alkaline Phosphatase 30 L D Troponin I 0.290 H* B-Natriuretic Peptide Total Protein 6.3 Albumin 3.6 D Globulin 2.7 Albumin/Globulin Ratio 1.3 Coccidioides IgM Ab ABG Interpretation ABG results: 08/10/24 08/10/24 08/10/24 11:34 13:55 16:46 ABG pH 7.21 L 6.97 L* D 6.99 L* ABG pCO2 49 H 95 H* D 78 H* D ABG pO2 60 L 64 L 41 L* D ABG HCO3 20 22 19 L ABG O2 Saturation 86 L 80 L 58 L ABG Base Excess -8 L -12 L -14 L 08/10/24 08/10/24 08/10/24 19:28 20:48 21:13 ABG pH 7.01 L* Cancelled 7.08 L* ABG pCO2 75 H* Cancelled 69 H ABG pO2 47 L* Cancelled 61 L ABG HCO3 19 L Cancelled 20 ABG O2 Saturation 72 L Cancelled 87 L ABG Base Excess -13 L Cancelled -11 L 08/11/24 08/11/24 00:34 04:08 ABG pH 7.14 L* 7.16 L* ABG pCO2 60 H 54 H ABG pO2 83 D 114 H D ABG HCO3 20 19 L ABG O2 Saturation 96 99 H ABG Base Excess -10 L -10 L Quality Measures Quality Measures none Assessment & Plan Assessment Current Active Medications: Generic Name Dose Route Start Last Admin Trade Name Freq PRN Reason Stop Dose Admin Acetaminophen 650 mg 08/11/24 08:37 Acetaminophen 325 Mg Tablet PO 09/10/24 05:56 Q6HR PRN FEVER >101 Hydrocodone Bitart/Acetaminophen 1 tab 08/09/24 15:20 Hydrocodone/Apap 5/325 Tablet PO 08/14/24 15:19 Q4HR PRN PAIN SCALE 4-6 (Moderate Protocol Albuterol/Ipratropium 3 ml 08/09/24 19:00 08/11/24 06:15 Albuterol/Ipratropium (Duoneb) Rt Aspen 3 Ml Nebu INH 09/08/24 18:59 3 ml Q6HRRT ASHWIN Administration Aspirin 81 mg 08/11/24 09:00 08/11/24 08:18 Aspirin Ec 81 Mg Tabec PO 09/10/24 08:59 81 mg QDAY ASHWIN Administration Rosuvastatin 20 Mg 0 ea 08/09/24 21:00 08/10/24 21:31 PO 09/08/24 20:59 20 tablet HS ASHWIN Administration Dextrose 25 ml 08/09/24 15:31 Dextrose 50%-Water Inj 50 Ml Syringe IV 09/08/24 15:30 Q15MIN PRN BG 50-70 responsive npo pt Dextrose 50 ml 08/09/24 15:31 Dextrose 50%-Water Inj 50 Ml Syringe IV 09/08/24 15:30 Q15MIN PRN BG <50 OR BG <70 & pt unresponsive Furosemide 40 mg 08/10/24 21:00 08/11/24 08:17 Furosemide Inj 10 Mg/Ml 4ml Vial IVP 09/09/24 20:59 40 mg BID ASHWIN Administration Glucagon 1 mg 08/09/24 15:31 Glucagon Inj 1 Mg Vial IM Q15MIN PRN BG <70, and no IV access Guaifenesin/Dextromethorphan 1 each 08/09/24 15:19 Guaifenesin/Dm Tablet PO 09/08/24 15:18 Q4HR PRN COUGH Heparin Sodium (Porcine) 5,000 unit 08/11/24 06:00 08/11/24 06:17 Heparin Sod Inj 5000 Unit/Ml Vial SC 08/25/24 05:59 5,000 unit Q8HR ASHWIN Administration Heparin Sodium (Porcine) 8,000 unit 08/11/24 08:59 Heparin Sod Inj 5000 Unit/Ml Vial IV 08/11/24 09:00 X1 ONE Protocol Azithromycin 500 mg/ Sodium 250 mls @ 250 mls/hr 08/10/24 11:26 08/10/24 12:26 Chloride IV 08/17/24 11:25 250 mls/hr QDAY ASHWIN Administration Fentanyl Citrate 2,500 mcg in 250 mls @ 2.5 mls/hr 08/10/24 14:20 08/11/24 06:00 Sublimaze Inj 2,500 Mcg/250 Ml Bag IV 08/15/24 14:19 75 mcg/hr .Q24H PRN 7.5 mls/hr PER PROTOCOL Titration Protocol 25 MCG/HR Vasopressin/Sodium Chloride 20 unit in 100 mls @ 9 mls/hr 08/10/24 14:53 08/11/24 02:09 Vasostrict/Ns Ivpb IV 09/09/24 14:52 0.03 unit/min .[id number] PRN 9 mls/hr PER PROTOCOL Administration Protocol 0.03 UNIT/MIN Norepinephrine/Dextrose 8 mg in 250 mls @ 14.738 mls/hr 08/10/24 15:30 08/11/24 06:24 Levophed In D5w 8mg/250ml IV 09/09/24 15:29 0.27 mcg/kg/min .[id number] PRN 79.583 mls/hr PER PROTOCOL Administration Protocol 0.05 MCG/KG/MIN Piperacillin Sod/Tazobactam 100 mls @ 200 mls/hr 08/10/24 15:31 08/11/24 06:09 Sod 4.5 gm/ Sodium Chloride IV 08/17/24 15:30 200 mls/hr Q6HR ASHWIN Administration Heparin Sodium/Dextrose 25,000 unit in 250 mls @ 17.94 mls/hr 08/11/24 09:00 Heparin In D5w Ivpb IV 08/25/24 08:59 .[id number] ASHWIN Protocol 11.5 UNITS/KG/HR Insulin Human Regular 100 unit in 100 mls @ 7 mls/hr 08/11/24 09:05 Myxredlin IV 09/10/24 09:04 .[id number] PRN PER PROTOCOL Protocol 7 UNIT/HR Insulin Glargine 12 unit 08/09/24 21:00 08/10/24 22:04 Insulin Glargine (Lantus) 5 Unit/0.05 Ml (Per 5 Units) SC 09/08/24 20:59 12 unit HS ASHWIN Administration Insulin Human Lispro 0 unit 08/11/24 00:00 08/11/24 06:17 Insulin Lispro (Admelog) 1 Unit/0.01 Ml Unit SC 09/10/24 00:00 5 unit Q6HR ASHWIN Administration Protocol Mirtazapine 45 mg 08/09/24 21:00 08/10/24 21:28 Mirtazapine 15 Mg Tablet PO 09/08/24 20:59 45 mg HS ASHWIN Administration Ondansetron HCl 4 mg 08/09/24 15:20 Ondansetron Inj 2 Mg/Ml Inj 2 Ml IV 09/08/24 15:19 Q6H PRN NAUSEA OR VOMITING Protocol Oseltamivir Phosphate 75 mg 08/09/24 15:50 08/11/24 08:18 Oseltamivir 75 Mg Capsule PO 08/13/24 21:01 75 mg BID ASHWIN Administration Pantoprazole Sodium 40 mg 08/09/24 15:30 08/11/24 08:18 Pantoprazole Inj 40 Mg Vial IVP 09/08/24 15:29 40 mg QDAY ASHWIN Administration Paroxetine HCl 40 mg 08/09/24 21:00 08/10/24 21:29 Paroxetine Hcl 10 Mg Tablet PO 09/08/24 20:59 40 mg HS ASHWIN Administration Risperidone 6 mg 08/09/24 21:00 08/10/24 21:29 Risperidone 1 Mg Tablet PO 09/08/24 20:59 6 mg HS ASHWIN Administration Tamsulosin HCl 0.4 mg 08/09/24 16:00 08/11/24 08:18 Tamsulosin Hcl 0.4 Mg Capsule PO 09/08/24 15:59 0.4 mg QDAY ASHWIN Administration Topiramate 50 mg 08/09/24 21:00 08/10/24 21:28 Topiramate 25 Mg Tablet PO 09/08/24 20:59 50 mg HS ASHWIN Administration
--- NOTE | 2024-08-11 09:33 | PD.RESCONSUL ---
HPI Data of Consult Consult date: 08/11/24 Requesting Physician: Oscar Oliveira DO Admitting Provider: Oscar Oliveira DO Attending Provider: Oscar Oliveira DO Primary Care Provider: Physician No Primary/Family Consult Narrative Reason for consult: ARIANA, acidosis History of present illness: Andrew Bella is a 64-year-old male with a past medical history of hypertension, hyperlipidemia, CAD, insulin-dependent type 2 diabetes mellitus, CHF, A-fib, depression, and history of seizures who recently moved from [place] and initially presented to ED on 08/09 with dyspnea and productive cough with associated pleuritic chest pain, cough, wheezing, and weakness. Also noted to have bilateral lower extremity edema and orthopnea, but denied paroxysmal nocturnal dyspnea. In ED, vitals significant for temperature of 100.8 ?F and on room air. Labs showed BUN 29, 1.6, GFR 48, glucose 228, LDH 256, BNP 275, UA 4+ glucose, U tox negative. Influenza A positive. Patient subsequently started on Tamiflu as well as Lasix for possible CHF exacerbation. Throughout hospital course, on 08/10 patient has had 2 rapid responses very well for desaturation requiring BiPAP and IV steroids/antibiotics and the second for hypoxia with altered mentation, requiring intubation for airway protection prompting transfer to ICU for further care. Around time of intubation, ABG showed pH 6.97, pCO2 97. MAP noted to drop below 65 and was started on Levophed and vasopressin. Cardiology consulted for further evaluation of possible CHF exacerbation and A-fib. Although unable to determine baseline renal function, creatinine increased from 1.8 to 2.9 overnight and so nephrology was consulted. Given that patient is intubated, history obtained from chart review. 08/11: Patient seen and examined in ICU, intubated and undergoing cooling measures for fever of 103.1 ?F. Creatinine noted to jump from 1.8 to 2.9 overnight. Suspect acute tubular necrosis in setting of hypotension with MAP less than 65 mmHg noted on 08/10. Also associated increase in lactic acid from 2.2 to 4.6 as well as overnight increase in LFTs (AST 17 to 553 and AST from 10 to 54). Will follow-up on urine studies as well as renal ultrasound. cc:: cc: Oscar Oliveira DO Review of Systems Review of Systems ROS Unobtainable: due to endotracheal tube Past Medical History Past Medical History NEUROLOGIC: Positive Seizures (per pt last siezure greater than 10 yrs ago) CARDIAC: Positive Cardiac Disorders ([place]), Hypercholesterolemia, Congestive Heart Failure and Hypertension RESPIRATORY: Positive Chronic Obstructive Pulmonary Disease (COPD) GASTROINTESTINAL: Positive Gastrointestinal Disorders (hernia) GENITOURINARY: Negative Renal Disease ENDOCRINE: Positive Diabetes Mellitus Type 2; Negative Diabetes Mellitus Type 1 Surgical History SURGICAL: Positive Tonsillectomy and Joint Replacement (neck) Social History SMOKING STATUS: Former smoker Past Medical History Comments PMH COMMENT: PMH: -Diabetes Mellitus Type 2 insulin dependent -Hypertension -Hyperlipidemia -CAD/[place] -CHF Lasix 40 IV push daily added, currently holding home medication of spironolactone given unknown ejection fraction. -Atrial fibrillation on Eliquis (currently holding given possible CT-guided biopsy for nodules noted on chest x-ray) -COPD, recent diagnosis no medication on board -History of seizures -History of depression -BPH -Spinal Stenosis s/p surgery Past Surgical History: -Appendectomy -Disc repair secondary to spinal stenosis Social History: [id number] history, smoked for 20 years about 2 packs/day, quit 15 years ago Denied alcohol use Denied illicit drug use Allergies: Atorvastatin Lisinopril Bactrim Code Status: Full code Exam Vital Signs Temp Pulse Resp BP Pulse Ox O2 Del Method O2 Flow Rate 103.1 F H 68 29 H 137/65 H 92 L Mechanical Ventilation 08/11/24 08:00 08/11/24 09:00 08/11/24 06:09 08/11/24 09:00 08/11/24 09:00 08/10/24 19:30 08/10/24 11:39 FiO2 50 08/11/24 06:09 Narrative Exam General: AOx0, intubated, sedated HEENT: NC/AT, mucous membranes moist, bilateral sclera anicteric Cardiovascular: systolic murmur at right sternal border, S1/S2 present, irregular rhythm Pulmonary: ventilated and intubated Abdominal: soft, non-tender, non-distended, no rebound/guarding, normal bowel sounds present Musculoskeletal: chronic venous stasis changes, bilateral lower extremity pitting edema Results Labs 08/12/24 03:40 08/12/24 10:45 Labs: Short CBC 08/10/24 08/11/24 Range/Units 11:55 03:13 WBC 14.8 H D 17.6 H (3.8-10.6) Thou/mm3 Hgb 13.0 L 13.4 L (13.5-16.0) g/dL Hct 41.1 42.8 (41.0-53.0) % Plt Count 240 D 219 (140-440) Thou/mm3 BMP 08/10/24 08/11/24 11:55 03:13 Sodium 132 L 131 L Potassium 4.3 4.8 D Chloride 99 99 Carbon Dioxide 19.6 L 19.9 L BUN 37 H 53 H Creatinine 1.8 H 2.9 H D Glucose 228 H D 353 H D Calcium 8.8 7.9 L Cardiac Enzymes 08/10/24 08/10/24 08/10/24 Range/Units 11:55 15:48 21:23 Troponin I 0.095 H* 0.170 H* 0.230 H* (0.0-0.045) ng/mL 08/11/24 Range/Units 03:13 Troponin I 0.290 H* (0.0-0.045) ng/mL Liver Function 08/11/24 Range/Units 03:13 Total Bilirubin 1.6 H D (0.3-1.2) mg/dL AST 553 H* (0-34) U/L ALT 254 H (10-49) U/L Alkaline Phosphatase 30 L D (46-116) U/L Albumin 3.6 D (3.4-4.8) gm/dL ABG Interpretation ABG results: 08/10/24 08/10/24 08/10/24 11:34 13:55 16:46 ABG pH 7.21 L 6.97 L* D 6.99 L* ABG pCO2 49 H 95 H* D 78 H* D ABG pO2 60 L 64 L 41 L* D ABG HCO3 20 22 19 L ABG O2 Saturation 86 L 80 L 58 L ABG Base Excess -8 L -12 L -14 L 08/10/24 08/10/24 08/10/24 19:28 20:48 21:13 ABG pH 7.01 L* Cancelled 7.08 L* ABG pCO2 75 H* Cancelled 69 H ABG pO2 47 L* Cancelled 61 L ABG HCO3 19 L Cancelled 20 ABG O2 Saturation 72 L Cancelled 87 L ABG Base Excess -13 L Cancelled -11 L 08/11/24 08/11/24 00:34 04:08 ABG pH 7.14 L* 7.16 L* ABG pCO2 60 H 54 H ABG pO2 83 D 114 H D ABG HCO3 20 19 L ABG O2 Saturation 96 99 H ABG Base Excess -10 L -10 L Quality Measures Quality Measures none Medications Home Medications and Allergies Allergies Allergy/AdvReac Type Severity Reaction Status Date / Time atorvastatin Allergy Verified 08/09/24 13:49 lisinopril Allergy Verified 08/09/24 13:49 sulfamethoxazole Allergy Verified 08/09/24 13:49 [From Bactrim] trimethoprim [From Bactrim] Allergy Verified 08/09/24 13:49 Visit Medications Acetaminophen (Acetaminophen 325 Mg Tablet) 650 mg PO Q6HR PRN PRN Reason: FEVER >101 Stop: 09/10/24 05:56 Hydrocodone Bitart/Acetaminophen (Hydrocodone/Apap 5/325 Tablet) 1 tab PO Q4HR PRN; Protocol PRN Reason: PAIN SCALE 4-6 (Moderate Stop: 08/14/24 15:19 Albuterol/Ipratropium (Albuterol/Ipratropium (Duoneb) Rt Aspen 3 Ml Nebu) 3 ml INH Q6HRRT [facility] Stop: 09/08/24 18:59 Last Admin: 08/11/24 06:15 Dose: 3 ml Aspirin (Aspirin Ec 81 Mg Tabec) 81 mg PO QDAY ASHWIN Stop: 09/10/24 08:59 Last Admin: 08/11/24 08:18 Dose: 81 mg Rosuvastatin 20 Mg 0 ea PO HS [facility] Stop: 09/08/24 20:59 Last Admin: 08/10/24 21:31 Dose: 20 tablet Dextrose (Dextrose 50%-Water Inj 50 Ml Syringe) 25 ml IV Q15MIN PRN PRN Reason: BG 50-70 responsive npo pt Stop: 09/08/24 15:30 Dextrose (Dextrose 50%-Water Inj 50 Ml Syringe) 50 ml IV Q15MIN PRN PRN Reason: BG <50 OR BG <70 & pt unresponsive Stop: 09/08/24 15:30 Furosemide (Furosemide Inj 10 Mg/Ml 4ml Vial) 40 mg IVP BID [facility] Stop: 09/09/24 20:59 Last Admin: 08/11/24 08:17 Dose: 40 mg Glucagon (Glucagon Inj 1 Mg Vial) 1 mg IM Q15MIN PRN PRN Reason: BG <70, and no IV access Guaifenesin/Dextromethorphan (Guaifenesin/Dm Tablet) 1 each PO Q4HR PRN PRN Reason: COUGH Stop: 09/08/24 15:18 Heparin Sodium (Porcine) (Heparin Sod Inj 5000 Unit/Ml Vial) 5,000 unit SC Q8HR ASHWIN Stop: 08/25/24 05:59 Last Admin: 08/11/24 06:17 Dose: 5,000 unit Heparin Sodium (Porcine) (Heparin Sod Inj 5000 Unit/Ml Vial) 8,000 unit IV X1 ONE; Protocol Stop: 08/11/24 09:00 Azithromycin 500 mg/ Sodium (Chloride) 250 mls @ 250 mls/hr IV QDAY ASHWIN Stop: 08/17/24 11:25 Last Admin: 08/10/24 12:26 Dose: 250 mls/hr Fentanyl Citrate (Sublimaze Inj 2,500 Mcg/250 Ml Bag) 2,500 mcg in 250 mls @ 2.5 mls/hr IV .Q24H PRN; Protocol PRN Reason: PER PROTOCOL Stop: 08/15/24 14:19 Last Titration: 08/11/24 06:00 Dose: 75 mcg/hr, 7.5 mls/hr Vasopressin/Sodium Chloride (Vasostrict/Ns Ivpb) 20 unit in 100 mls @ 9 mls/hr IV .[id number] PRN; Protocol PRN Reason: PER PROTOCOL Stop: 09/09/24 14:52 Last Admin: 08/11/24 02:09 Dose: 0.03 unit/min, 9 mls/hr Norepinephrine/Dextrose (Levophed In D5w 8mg/250ml) 8 mg in 250 mls @ 14.738 mls/hr IV .[id number] PRN; Protocol PRN Reason: PER PROTOCOL Stop: 09/09/24 15:29 Last Admin: 08/11/24 06:24 Dose: 0.27 mcg/kg/min, 79.583 mls/hr Piperacillin Sod/Tazobactam (Sod 4.5 gm/ Sodium Chloride) 100 mls @ 200 mls/hr IV Q6HR ASHWIN Stop: 08/17/24 15:30 Last Admin: 08/11/24 06:09 Dose: 200 mls/hr Heparin Sodium/Dextrose (Heparin In D5w Ivpb) 25,000 unit in 250 mls @ 17.94 mls/hr IV .[id number] ASHWIN; Protocol Stop: 08/25/24 08:59 Insulin Human Regular (Myxredlin) 100 unit in 100 mls @ 7 mls/hr IV .[id number] PRN; Protocol PRN Reason: PER PROTOCOL Stop: 09/10/24 09:04 Insulin Glargine (Insulin Glargine (Lantus) 5 Unit/0.05 Ml (Per 5 Units)) 12 unit SC HS [facility] Stop: 09/08/24 20:59 Last Admin: 08/10/24 22:04 Dose: 12 unit Insulin Human Lispro (Insulin Lispro (Admelog) 1 Unit/0.01 Ml Unit) 0 unit SC Q6HR ASHWIN; Protocol Stop: 09/10/24 00:00 Last Admin: 08/11/24 06:17 Dose: 5 unit Mirtazapine (Mirtazapine 15 Mg Tablet) 45 mg PO HS [facility] Stop: 09/08/24 20:59 Last Admin: 08/10/24 21:28 Dose: 45 mg Ondansetron HCl (Ondansetron Inj 2 Mg/Ml Inj 2 Ml) 4 mg IV Q6H PRN; Protocol PRN Reason: NAUSEA OR VOMITING Stop: 09/08/24 15:19 Oseltamivir Phosphate (Oseltamivir 75 Mg Capsule) 75 mg PO BID [facility] Stop: 08/13/24 21:01 Last Admin: 08/11/24 08:18 Dose: 75 mg Pantoprazole Sodium (Pantoprazole Inj 40 Mg Vial) 40 mg IVP QDAY [facility] Stop: 09/08/24 15:29 Last Admin: 08/11/24 08:18 Dose: 40 mg Paroxetine HCl (Paroxetine Hcl 10 Mg Tablet) 40 mg PO HS ASHWIN Stop: 09/08/24 20:59 Last Admin: 08/10/24 21:29 Dose: 40 mg Risperidone (Risperidone 1 Mg Tablet) 6 mg PO HS [facility] Stop: 09/08/24 20:59 Last Admin: 08/10/24 21:29 Dose: 6 mg Tamsulosin HCl (Tamsulosin Hcl 0.4 Mg Capsule) 0.4 mg PO QDAY ASHWIN Stop: 09/08/24 15:59 Last Admin: 08/11/24 08:18 Dose: 0.4 mg Topiramate (Topiramate 25 Mg Tablet) 50 mg PO HS ASHWIN Stop: 09/08/24 20:59 Last Admin: 08/10/24 21:28 Dose: 50 mg Discontinued Medications Acetaminophen (Acetaminophen 325 Mg Tablet) 650 mg PO Q6H PRN PRN Reason: Mild Pain 1-3 or Fever >100.4 Stop: 09/08/24 15:19 Acetaminophen (Acetaminophen 325 Mg Tablet) 650 mg PO Q4HR PRN PRN Reason: FEVER >101 Stop: 09/10/24 05:56 Last Admin: 08/11/24 06:15 Dose: 650 mg Albuterol/Ipratropium (Albuterol/Ipratropium (Duoneb) Rt Aspen 3 Ml Nebu) 3 ml INH X1 ONE Stop: 08/10/24 11:31 Last Admin: 08/10/24 11:38 Dose: 3 ml Amlodipine Besylate (Amlodipine Besylate 5 Mg Tablet) 5 mg PO QDAY ASHWIN Stop: 09/09/24 08:59 Last Admin: 08/10/24 09:25 Dose: 5 mg Apixaban (Apixaban 2.5 Mg Tablet) 5 mg PO BID ASHWIN Stop: 09/08/24 20:59 Atorvastatin Calcium (Atorvastatin Calcium 20 Mg Tablet) 80 mg PO HS ASHWIN Stop: 09/08/24 20:59 Rosuvastatin 20 Mg 0 ea PO HS ASHWIN Stop: 09/08/24 16:44 Last Admin: 08/09/24 17:49 Dose: Not Given Rosuvastatin 20 Mg 0 ea PO HS ASHWIN Stop: 09/08/24 16:44 Ferrous Sulfate (Ferrous Sulf 325 Mg Tablet) 325 mg PO QOD SAHWIN Stop: 09/09/24 07:44 Last Admin: 08/10/24 09:24 Dose: 325 mg Furosemide (Furosemide Inj 10 Mg/Ml 4ml Vial) 40 mg IVP QDAY ASHWIN Stop: 09/08/24 15:44 Last Admin: 08/10/24 09:24 Dose: 40 mg Furosemide (Furosemide Inj 10 Mg/Ml 4ml Vial) 40 mg IVP X1 ONE Stop: 08/10/24 11:34 Last Admin: 08/10/24 11:44 Dose: 40 mg Furosemide (Furosemide Inj 10 Mg/Ml 4ml Vial) 80 mg IVP X1 ONE Stop: 08/10/24 20:43 Last Admin: 08/10/24 20:47 Dose: 80 mg Heparin Sodium (Porcine) (Heparin Sod Inj 5000 Unit/Ml Vial) 5,000 unit SC Q12HR [facility] Stop: 08/23/24 20:59 Ceftriaxone Sodium/Dextrose (Rocephin/D5w 1gm Iv Premix) 50 mls @ 100 mls/hr IV QDAY [facility] Stop: 08/17/24 11:25 Last Admin: 08/10/24 11:50 Dose: 100 mls/hr Vancomycin HCl 2,000 mg/ (Sodium Chloride) 500 mls @ 150 mls/hr IV X1 ONE Stop: 08/10/24 19:04 Last Admin: 08/10/24 18:15 Dose: 150 mls/hr Vancomycin HCl (Vancomycin/Water 1250 Mg Ivpb) 250 mls @ 120 mls/hr IV Q12H [facility] Stop: 08/18/24 09:59 Vancomycin HCl (Vancomycin/Water 1250 Mg Ivpb) 250 mls @ 120 mls/hr IV Q24H [facility] Stop: 08/18/24 09:59 Insulin Human Lispro (Insulin Lispro (Admelog) 1 Unit/0.01 Ml Unit) [facility]; Protocol Stop: 09/08/24 16:59 Last Admin: 08/10/24 21:58 Dose: Not Given Methylprednisolone Sodium Succinate (Methylprednisolone Sod Succ 62.5 Mg/Ml 2ml Vial) 125 mg IV X1 ONE Stop: 08/10/24 11:28 Last Admin: 08/10/24 11:43 Dose: 125 mg Methylprednisolone Sodium Succinate (Methylprednisolone Sod Succ 40 Mg Vial) 40 mg IVP Q6HR [facility] Stop: 08/17/24 12:14 Last Admin: 08/10/24 12:20 Dose: Not Given Methylprednisolone Sodium Succinate (Methylprednisolone Sod Succ 40 Mg Vial) 40 mg IVP Q6H [facility] Stop: 08/17/24 20:59 Last Admin: 08/11/24 08:17 Dose: 40 mg Pharmacy Consult (Vancomycin Pharmacy To Dose 1 Each Each) 1 each IV QDAY PRN PRN Reason: CONSULT Stop: 09/09/24 15:29 Rocuronium [place] (Rocuronium Inj 10 Mg/Ml Vial 10 Ml) 100 mg IV X1 ONE Stop: 08/10/24 14:21 Last Admin: 08/10/24 14:20 Dose: 100 mg Sevelamer Carbonate (Sevelamer Carbonate 800 Mg Tablet) 800 mg PO X1 ONE Stop: 08/10/24 07:58 Last Admin: 08/10/24 09:24 Dose: 800 mg Sodium Bicarbonate (Sodium Bicarb Inj 8.4% 1 Meq/Ml Vial 50 Ml) 50 meq IV X1 ONE Stop: 08/10/24 19:55 Last Admin: 08/10/24 20:14 Dose: 50 meq Sodium Bicarbonate (Sodium Bicarb Inj 8.4% 1 Meq/Ml Vial 50 Ml) 50 meq IV X1 ONE Stop: 08/10/24 21:37 Last Admin: 08/10/24 21:49 Dose: 50 meq Sodium Chloride (Sodium Chloride Rt 10% 15 Ml Nebu) 5 ml INH X1 ONE Stop: 08/09/24 15:21 Last Admin: 08/11/24 08:10 Dose: Not Given Sodium Chloride (Sodium Chloride Rt 10% 15 Ml Nebu) 5 ml INH X1 ONE Stop: 08/10/24 14:19 Last Admin: 08/10/24 20:14 Dose: Not Given Assessment & Plan Plan Andrew Bella is a 64-year-old male with a past medical history of hypertension, hyperlipidemia, CAD, insulin-dependent type 2 diabetes mellitus, CHF, A-fib, depression, and history of seizures who initially presented to ED on 08/09 with dyspnea and productive cough with associated pleuritic chest pain, admitted for management of influenza PNA vs CHF exacerbation. Upgraded on 08/10 for airway protection requiring intubation and nephrology consulted in setting of acute kidney injury with creatinine increase from 1.89 to 2.9. #Acute kidney injury #? Acute tubular necrosis Creatinine noted to jump from 1.8-2.9 overnight. Suspect acute tubular necrosis in setting of hypotension in setting of MAP less than 65 mmHg noted on 08/10 with associated increase in lactic acid from 2.2 to 4.6 as well as overnight increase in LFTs (AST 17 to 553 and AST from 10 to 54). ? Follow-up urine studies ? Follow-up renal ultrasound ? Avoid nephrotoxic agents ? Renally dose medications #Acute metabolic encephalopathy #History of seizures #Shock, distributive versus obstructive versus cardiogenic #HFpEF (EF 55 to 60%) #Atrial fibrillation #Elevated troponin #Transaminitis #Hypertension #Hyperlipidemia #CAD #Acute hypoxic/hypercapnic respiratory failure, secondary to #Influenza A pneumonia #COPD #Type 2 diabetes mellitus, insulin-dependent ? Continue management per primary team ----- Plan discussed with attending physician Dr. Jean-Claude Khan MD PGY-1 Internal Medicine Attending Provider Attestation/Addendum Patient seen and examined with resident physician Dr. Angel. Note reviewed, agree with findings and recommendations. Patient currently seen in ICU. With flulike symptoms went into acute hypoxic respiratory failure, shock, ARIANA/ATN. Urine output very minimal. If no improvement in azotemia or do renal replacement therapy. Plan of care discussed with ICU team. Thank you Dr. Murry for allowing me to participate in the care of Mr. Bella
[2024-08-11] MEDS: AZITHROMYCIN INJ 500 MG in SODIUM CHLORIDE 0.9% 250 ML 250 ML 250 MG IV (09:50)
[2024-08-11] MEDS: Norepinephrine/D5W 8mg/250ml 8 MG/250 ML BAG 85.478 MG IV ×2 (10:00→22:29)
[2024-08-11 10:33] LABS: Partial Thromboplastin Time 38.2 Seconds (22.0-36.0)
[2024-08-11 10:42] LABS: Procalcitonin 211.93 ng/ml (0.0-0.49)
[2024-08-11 10:46] LABS: Troponin I 0.379 ng/mL (0.0-0.045)
[2024-08-11] MEDS: LINEZOLID 600 MG IVPB 600 MG/300 ML BAG 300 MG IV ×2 (11:55→22:09)
--- NOTE | 2024-08-11 12:22 | ESPR_ITS ---
<Statement entered by Idalmis Murry MD - 08/12/24 08:19> TOTAL CC TIME: 45 MIN I saw and evaluated the patient. I reviewed the resident?s note and agree with findings and plan as documented in the resident?s note. Upon my evaluation, this patient had a high probability of imminent or life- threatening deterioration due to septic shock from aspiration pneumonia in the setting of influenza pneumonia and now ARDS with worsening acute kidney injury and acidosis which required my direct attention, intervention, and personal management. This time is exclusive of time spent on procedures, which are documented separately if performed. On appropriate low tidal volume strategy but has persistent acidemia and will require hemodialysis hemodialysis catheter will be placed in consultation with nephrology was obtained earlier in the day. Continue antibiotics as ordered follow-up final culture results On appropriate vasopressor therapy steroids were stopped due to concurrent influenza pneumonia Insulin drip started for difficult to manage type 2 diabetes with hyperglycemia. Check ketones <Statement entered by Светлана Dotson DO - 08/11/24 22:11> Senior attestation: Patient was examined and case was reviewed with team including attending physician. Note reviewed, I agree with most of its contents and agree with the patient's care. Patient showing improvement in ABG however continues to show mixed respiratory and metabolic acidosis pattern. Creatinine noted to worsen to 2.9, output of ~675 overnight. Will stop vancomycin and start linezolid, continue azithromycin and zosyn, nephrology team consulted. CTA chest revealed significant bilateral pneumonia with ARDs pattern. Have stopped IV steroids and amlodipine. Glucose levels remain elevated today, possibly from recent steroid administration, will continue IV insulin drip with close glucose and renal function panel monitoring. Overnight, will give 150 mEqs sodium bicarbonate and continue with serial ABGs, vasc cath placed for possible hemodialysis. Светлана Dotson DO PGY-3 Documentation for date of: 08/11/24 Subjective Subjective Interval history: Mr. Bella is a 64-year-old male with a past medical history of hypertension, hyperlipidemia, CAD, diabetes mellitus type 2 insulin-dependent, CHF (unknown ejection fraction), atrial fibrillation, history of seizures, who presented to [facility] emergency room with acute increasing dyspnea and increasing cough. Patient stated that he has been having increasing pleuritic chest pain secondary to productive cough. Patient stated his cough is productive. Come into the emergency room today after being unable to reach the restroom because of increasing shortness of breath. Patient denied typically here with increasing wheezing. Patient denied any sick contacts. Increased perspiration. Increased orthopnea. Increasing shortness of breath. Negative paroxysmal nocturnal orthopnea. Positive for diarrhea. Increased bilateral swelling. History of BPH. History of depression. Patient was admitted on 08/09/2024 for CHF exacerbation and influenza A. Patient history of recent travel, recently moved to [place] from [place]. Patient had a rapid response called earlier this morning for low SpO2 84% despite 8 L of oxygen patient had increased work of breathing was tachypneic with circulation intact, patient was started on IV steroids, IV antibiotics. Eventually patient had another rapid response called for altered mental status, patient was noted to be unresponsive to verbal Kaman, responsive to only painful stimuli, patient is GCS of 7 was unable to protect airway, aspiration noted at bedside and patient was emergently intubated. At bedside patient noted to have pink frothy aspirate, high suspicion of pulmonary edema, patient upgraded to intensive care unit for further management. Patient eventually had a central line and arterial line placed. Attempt was made to reach out to patient's emergency contact, but none was available, eventually contacted patient's friend and primary decision maker Rodrigo Schneider. 08/11/23:Patient seen and examined at bedside, overnight significant improvement in patient's, PS this morning 7.16, pCO2 54, bicarb 19.9, high suspicion of underlying shock distributive due to aspiration pneumonia, ordered CTA chest along with CT abdomen pelvis, no known source for sepsis, CTA shows significant bilateral pneumonia with ARDS pattern, patient's antibiotic therapy optimized to Zosyn, linezolid and azithromycin. Patient is also on Tamiflu due to underlying influenza, methylprednisone discontinued, underlying respiratory disease from aspiration pneumonia, less likely COPD exacerbation, will continue with DuoNeb every 6 hours, will hold Lasix and discontinue vancomycin due to worsening renal function, high suspicion of acute tubular necrosis due to sepsis, elevated LFTs, high possibility of shock liver, patient's blood glucose significantly elevated started on insulin gtt. significant elevation of Pro-Donte noted today, nephrology was consulted due to worsening renal function. Exam Vital Signs Temp Pulse Resp BP Pulse Ox O2 Del Method O2 Flow Rate 104.0 F H 66 23 H 118/58 L 100 Mechanical Ventilation 15 08/11/24 12:01 08/11/24 12:01 08/11/24 10:35 08/11/24 12:01 08/11/24 12:01 08/10/24 19:30 08/10/24 11:39 FiO2 50 08/11/24 12:00 Narrative Exam General: AAOx0, intubated, sedated dishelved, morbidly obese man, unkempt, bearded male HEENT: Moist mucous membranes, conjunctiva clear, EOMI,skin tags present, right IJ central line Cardiovascular: Pansystolic murmur ausculated upon mitral valve and R sternal border, no carotid bruit appreciated, radial pulses +2 bilat, irregularly irregular, Radial A-line present, bilat wrist restraints present Pulmonary: Crackles appreciated bilaterally, patient on mechanical ventilation, intubated GI: No ascites noted, bowel sounds present, however, abd obesity Extremities: venous stasis noted, unkempt feet, +2 bilat edema in LE Neuro: Unable to assess due to patient's current condition Objective Labs 08/11/24 03:13 08/11/24 19:52 Labs: Laboratory Results - last 24 hr 08/09/24 08/10/24 08/10/24 20:06 11:34 11:55 WBC 14.8 H D RBC 4.76 Hgb 13.0 L Hct 41.1 MCV 86 MCH 27.3 MCHC 31.6 RDW Std Deviation 46.5 H Plt Count 240 D Neut % (Auto) 89 H Lymph % (Auto) 3 L [place] % (Auto) 8 Eos % (Auto) 0 Baso % (Auto) 0 Neut # (Auto) 13.1 H Lymph # (Auto) 0.4 L [place] # (Auto) 1.2 H Eos # (Auto) 0.0 Baso # (Auto) 0.0 Immature Gran # (Auto) 0.06 H Absolute Nucleated RBC 0.00 Immature Gran % 0 Nucleated RBC % 0 APTT Puncture Site Right Radial ABG pH ABG pCO2 ABG pO2 ABG HCO3 ABG O2 Saturation ABG Base Excess Oxygen Liter Flow FiO2 Sodium 132 L Potassium 4.3 Chloride 99 Carbon Dioxide 19.6 L Anion Gap 13 BUN 37 H Creatinine 1.8 H Estim Creat Clear Calc 65.8 eGFR 42 L BUN/Creatinine Ratio 21 H Glucose 228 H D Calculated Osmolality 280 Lactic Acid Calcium 8.8 Corrected Calcium Phosphorus Magnesium Total Bilirubin AST ALT Alkaline Phosphatase Troponin I 0.095 H* B-Natriuretic Peptide 618 H* Total Protein Albumin Globulin Albumin/Globulin Ratio Procalcitonin Coccidioides IgM Ab Negative 08/10/24 08/10/24 08/10/24 13:55 15:48 16:46 WBC RBC Hgb Hct MCV MCH MCHC RDW Std Deviation Plt Count Neut % (Auto) Lymph % (Auto) [place] % (Auto) Eos % (Auto) Baso % (Auto) Neut # (Auto) Lymph # (Auto) [place] # (Auto) Eos # (Auto) Baso # (Auto) Immature Gran # (Auto) Absolute Nucleated RBC Immature Gran % Nucleated RBC % APTT Puncture Site Right Radial Arterial Line ABG pH 6.97 L* D 6.99 L* ABG pCO2 95 H* D 78 H* D ABG pO2 64 L 41 L* D ABG HCO3 22 19 L ABG O2 Saturation 80 L 58 L ABG Base Excess -12 L -14 L Oxygen Liter Flow FiO2 100 100 Sodium Potassium Chloride Carbon Dioxide Anion Gap BUN Creatinine Estim Creat Clear Calc eGFR BUN/Creatinine Ratio Glucose Calculated Osmolality Lactic Acid Calcium Corrected Calcium Phosphorus Magnesium Total Bilirubin AST ALT Alkaline Phosphatase Troponin I 0.170 H* B-Natriuretic Peptide Total Protein Albumin Globulin Albumin/Globulin Ratio Procalcitonin Coccidioides IgM Ab 08/10/24 08/10/24 08/10/24 17:42 19:28 20:48 WBC RBC Hgb Hct MCV MCH MCHC RDW Std Deviation Plt Count Neut % (Auto) Lymph % (Auto) [place] % (Auto) Eos % (Auto) Baso % (Auto) Neut # (Auto) Lymph # (Auto) [place] # (Auto) Eos # (Auto) Baso # (Auto) Immature Gran # (Auto) Absolute Nucleated RBC Immature Gran % Nucleated RBC % APTT Puncture Site Arterial Line Cancelled ABG pH 7.01 L* Cancelled ABG pCO2 75 H* Cancelled ABG pO2 47 L* Cancelled ABG HCO3 19 L Cancelled ABG O2 Saturation 72 L Cancelled ABG Base Excess -13 L Cancelled Oxygen Liter Flow Cancelled FiO2 100 Cancelled Sodium Potassium Chloride Carbon Dioxide Anion Gap BUN Creatinine Estim Creat Clear Calc eGFR BUN/Creatinine Ratio Glucose Calculated Osmolality Lactic Acid 4.6 H* Calcium Corrected Calcium Phosphorus Magnesium Total Bilirubin AST ALT Alkaline Phosphatase Troponin I B-Natriuretic Peptide Total Protein Albumin Globulin Albumin/Globulin Ratio Procalcitonin Coccidioides IgM Ab 08/10/24 08/10/24 08/11/24 21:13 21:23 00:34 WBC RBC Hgb Hct MCV MCH MCHC RDW Std Deviation Plt Count Neut % (Auto) Lymph % (Auto) [place] % (Auto) Eos % (Auto) Baso % (Auto) Neut # (Auto) Lymph # (Auto) [place] # (Auto) Eos # (Auto) Baso # (Auto) Immature Gran # (Auto) Absolute Nucleated RBC Immature Gran % Nucleated RBC % APTT Puncture Site Arterial Line Arterial Line ABG pH 7.08 L* 7.14 L* ABG pCO2 69 H 60 H ABG pO2 61 L 83 D ABG HCO3 20 20 ABG O2 Saturation 87 L 96 ABG Base Excess -11 L -10 L Oxygen Liter Flow FiO2 100 100 Sodium Potassium Chloride Carbon Dioxide Anion Gap BUN Creatinine Estim Creat Clear Calc eGFR BUN/Creatinine Ratio Glucose Calculated Osmolality Lactic Acid Calcium Corrected Calcium Phosphorus Magnesium Total Bilirubin AST ALT Alkaline Phosphatase Troponin I 0.230 H* B-Natriuretic Peptide Total Protein Albumin Globulin Albumin/Globulin Ratio Procalcitonin Coccidioides IgM Ab 08/11/24 08/11/24 08/11/24 03:13 04:08 07:10 WBC 17.6 H RBC 4.90 Hgb 13.4 L Hct 42.8 MCV 87 MCH 27.3 MCHC 31.3 RDW Std Deviation 46.6 H Plt Count 219 Neut % (Auto) 92 H Lymph % (Auto) 4 L [place] % (Auto) 3 Eos % (Auto) 0 Baso % (Auto) 0 Neut # (Auto) 16.1 H Lymph # (Auto) 0.7 L [place] # (Auto) 0.6 Eos # (Auto) 0.0 Baso # (Auto) 0.0 Immature Gran # (Auto) 0.08 H Absolute Nucleated RBC 0.00 Immature Gran % 1 H Nucleated RBC % 0 APTT Puncture Site Arterial Line ABG pH 7.16 L* ABG pCO2 54 H ABG pO2 114 H D ABG HCO3 19 L ABG O2 Saturation 99 H ABG Base Excess -10 L Oxygen Liter Flow FiO2 85 Sodium 131 L Potassium 4.8 D Chloride 99 Carbon Dioxide 19.9 L Anion Gap 12 BUN 53 H Creatinine 2.9 H D Estim Creat Clear Calc 40.7 L eGFR 23 L BUN/Creatinine Ratio 18 Glucose 353 H D Calculated Osmolality 291 Lactic Acid 2.3 H 2.6 H Calcium 7.9 L Corrected Calcium 8.2 L Phosphorus 6.0 H Magnesium 2.1 Total Bilirubin 1.6 H D AST 553 H* ALT 254 H Alkaline Phosphatase 30 L D Troponin I 0.290 H* B-Natriuretic Peptide Total Protein 6.3 Albumin 3.6 D Globulin 2.7 Albumin/Globulin Ratio 1.3 Procalcitonin Coccidioides IgM Ab 08/11/24 09:25 WBC RBC Hgb Hct MCV MCH MCHC RDW Std Deviation Plt Count Neut % (Auto) Lymph % (Auto) [place] % (Auto) Eos % (Auto) Baso % (Auto) Neut # (Auto) Lymph # (Auto) [place] # (Auto) Eos # (Auto) Baso # (Auto) Immature Gran # (Auto) Absolute Nucleated RBC Immature Gran % Nucleated RBC % APTT 38.2 H Puncture Site ABG pH ABG pCO2 ABG pO2 ABG HCO3 ABG O2 Saturation ABG Base Excess Oxygen Liter Flow FiO2 Sodium Potassium Chloride Carbon Dioxide Anion Gap BUN Creatinine Estim Creat Clear Calc eGFR BUN/Creatinine Ratio Glucose Calculated Osmolality Lactic Acid Calcium Corrected Calcium Phosphorus Magnesium Total Bilirubin AST ALT Alkaline Phosphatase Troponin I 0.379 H* B-Natriuretic Peptide Total Protein Albumin Globulin Albumin/Globulin Ratio Procalcitonin 211.93 H Coccidioides IgM Ab ABG Interpretation ABG results: 08/10/24 08/10/24 08/10/24 11:34 13:55 16:46 ABG pH 7.21 L 6.97 L* D 6.99 L* ABG pCO2 49 H 95 H* D 78 H* D ABG pO2 60 L 64 L 41 L* D ABG HCO3 20 22 19 L ABG O2 Saturation 86 L 80 L 58 L ABG Base Excess -8 L -12 L -14 L 08/10/24 08/10/24 08/10/24 19:28 20:48 21:13 ABG pH 7.01 L* Cancelled 7.08 L* ABG pCO2 75 H* Cancelled 69 H ABG pO2 47 L* Cancelled 61 L ABG HCO3 19 L Cancelled 20 ABG O2 Saturation 72 L Cancelled 87 L ABG Base Excess -13 L Cancelled -11 L 08/11/24 08/11/24 00:34 04:08 ABG pH 7.14 L* 7.16 L* ABG pCO2 60 H 54 H ABG pO2 83 D 114 H D ABG HCO3 20 19 L ABG O2 Saturation 96 99 H ABG Base Excess -10 L -10 L Quality Measures Quality Measures none Assessment & Plan Assessment Current Active Medications: Generic Name Dose Route Start Last Admin Trade Name Freq PRN Reason Stop Dose Admin Acetaminophen 650 mg 08/11/24 08:37 Acetaminophen 325 Mg Tablet PO 09/10/24 05:56 Q6HR PRN FEVER >101 Albuterol/Ipratropium 3 ml 08/09/24 19:00 08/11/24 06:15 Albuterol/Ipratropium (Duoneb) Rt Aspen 3 Ml Nebu INH 09/08/24 18:59 3 ml Q6HRRT ASHWIN Administration Aspirin 81 mg 08/11/24 09:00 08/11/24 08:18 Aspirin Ec 81 Mg Tabec PO 09/10/24 08:59 81 mg QDAY ASHWIN Administration Rosuvastatin 20 Mg 0 ea 08/09/24 21:00 08/10/24 21:31 PO 09/08/24 20:59 20 tablet HS ASHWIN Administration Dextrose 25 ml 08/09/24 15:31 Dextrose 50%-Water Inj 50 Ml Syringe IV 09/08/24 15:30 Q15MIN PRN BG 50-70 responsive npo pt Dextrose 50 ml 08/09/24 15:31 Dextrose 50%-Water Inj 50 Ml Syringe IV 09/08/24 15:30 Q15MIN PRN BG <50 OR BG <70 & pt unresponsive Furosemide 40 mg 08/10/24 21:00 08/11/24 08:17 Furosemide Inj 10 Mg/Ml 4ml Vial IVP 09/09/24 20:59 40 mg BID ASHWIN Administration Glucagon 1 mg 08/09/24 15:31 Glucagon Inj 1 Mg Vial IM Q15MIN PRN BG <70, and no IV access Heparin Sodium (Porcine) 5,000 unit 08/11/24 06:00 08/11/24 06:17 Heparin Sod Inj 5000 Unit/Ml Vial SC 08/25/24 05:59 5,000 unit Q8HR ASHWIN Administration Azithromycin 500 mg/ Sodium 250 mls @ 250 mls/hr 08/10/24 11:26 08/11/24 09:50 Chloride IV 08/17/24 11:25 250 mls/hr QDAY ASHWIN Administration Fentanyl Citrate 2,500 mcg in 250 mls @ 2.5 mls/hr 08/10/24 14:20 08/11/24 06:00 Sublimaze Inj 2,500 Mcg/250 Ml Bag IV 08/15/24 14:19 75 mcg/hr .Q24H PRN 7.5 mls/hr PER PROTOCOL Titration Protocol 25 MCG/HR Vasopressin/Sodium Chloride 20 unit in 100 mls @ 9 mls/hr 08/10/24 14:53 08/11/24 02:09 Vasostrict/Ns Ivpb IV 09/09/24 14:52 0.03 unit/min .Q11H7M PRN 9 mls/hr PER PROTOCOL Administration Protocol 0.03 UNIT/MIN Norepinephrine/Dextrose 8 mg in 250 mls @ 14.738 mls/hr 08/10/24 15:30 08/11/24 06:24 Levophed In D5w 8mg/250ml IV 09/09/24 15:29 0.27 mcg/kg/min .[id number] PRN 79.583 mls/hr PER PROTOCOL Administration Protocol 0.05 MCG/KG/MIN Piperacillin Sod/Tazobactam 100 mls @ 200 mls/hr 08/10/24 15:31 08/11/24 06:09 Sod 4.5 gm/ Sodium Chloride IV 08/17/24 15:30 200 mls/hr Q6HR ASHWIN Administration Insulin Human Regular 100 unit in 100 mls @ 7 mls/hr 08/11/24 09:05 Myxredlin IV 09/10/24 09:04 .[id number] PRN PER PROTOCOL Protocol 7 UNIT/HR Linezolid 600 mg in 300 mls @ 300 mls/hr 08/11/24 10:53 08/11/24 11:55 Zyvox Ivpb IV 08/18/24 10:52 300 mls/hr Q12HR ASHWIN Administration Insulin Glargine 12 unit 08/09/24 21:00 08/10/24 22:04 Insulin Glargine (Lantus) 5 Unit/0.05 Ml (Per 5 Units) SC 09/08/24 20:59 12 unit HS ASHWIN Administration Insulin Human Lispro 0 unit 08/11/24 00:00 08/11/24 06:17 Insulin Lispro (Admelog) 1 Unit/0.01 Ml Unit SC 09/10/24 00:00 5 unit Q6HR ASHWIN Administration Protocol Mirtazapine 45 mg 08/09/24 21:00 08/10/24 21:28 Mirtazapine 15 Mg Tablet PO 09/08/24 20:59 45 mg HS ASHWIN Administration Ondansetron HCl 4 mg 08/09/24 15:20 Ondansetron Inj 2 Mg/Ml Inj 2 Ml IV 09/08/24 15:19 Q6H PRN NAUSEA OR VOMITING Protocol Oseltamivir Phosphate 75 mg 08/09/24 15:50 08/11/24 08:18 Oseltamivir 75 Mg Capsule PO 08/13/24 21:01 75 mg BID ASHWIN Administration Pantoprazole Sodium 40 mg 08/09/24 15:30 08/11/24 08:18 Pantoprazole Inj 40 Mg Vial IVP 09/08/24 15:29 40 mg QDAY ASHWIN Administration Paroxetine HCl 40 mg 08/09/24 21:00 08/10/24 21:29 Paroxetine Hcl 10 Mg Tablet PO 09/08/24 20:59 40 mg HS ASHWIN Administration Risperidone 6 mg 08/09/24 21:00 08/10/24 21:29 Risperidone 1 Mg Tablet PO 09/08/24 20:59 6 mg HS ASHWIN Administration Tamsulosin HCl 0.4 mg 08/09/24 16:00 08/11/24 08:18 Tamsulosin Hcl 0.4 Mg Capsule PO 09/08/24 15:59 0.4 mg QDAY ASHWIN Administration Topiramate 50 mg 08/09/24 21:00 08/10/24 21:28 Topiramate 25 Mg Tablet PO 09/08/24 20:59 50 mg HS ASHWIN Administration Plan Assessment and Plan Summary: Mr. Bella is a 64-year-old male with past medical history of hypertension, hyperlipidemia, coronary artery disease, type diabetes mellitus insulin-dependent, CHF, atrial fibrillation, history of seizures who was admitted to [facility] for management of CHF exacerbation and influenza A. Patient upgraded to ICU after emergent intubation post worsening of mentation and bedside aspiration with inability to protect airway. Neurological #Acute metabolic encephalopathy Differential diagnosis: Secondary to acute hypoxic/hypercapnic respiratory failure, underlying acidosis, underlying sepsis, polypharmacy Diagnostic workup: Patient had altered mental status, unable to protect airway, ABG pH 6.97, pCO2 95, pO2 64 Home medication includes risperidone 6 mg at bedtime, mirtazapine 45 mg at bedtime, and paroxetine 40 mg at bedtime for depression Treatment: -Patient intubated started on mechanical ventilation -Correct underlying acidosis -Continue IV antibiotics -Will hold risperidone, mirtazapine and paroxetine -Minimize Sedation Follow-up: -Follow-up ABGs in AM -Optimize mechanical ventilator settings -Will treat underlying etiology #History of seizures Patient has a past medical history of seizures, last seizure was several years ago and patient cannot recall but has been stable. Home medication topiramate 50 mg HS. Differential diagnosis: Low suspicion of seizure, no seizure-like activity noted Diagnostic workup: Will monitor for seizures/seizure-like activity Treatment: -Continue topiramate 50 mg at bedtime Cardiology #Shock Differential diagnosis: Distributive (septic shock due to aspiration pneumonia) ruled out obstructive shock (pulmonary embolism) and cardiogenic shock Diagnostic workup: Chest CTA significant for bilateral pneumonia and ARDS, ruled out PE Patient is influenza A positive, significant aspiration noted bedside, suspicion of underlying aspiration pneumonia Chest x-ray significant for interval severe bilateral pneumonia Patient does have history of coronary artery disease, EKG showed no ST elevation, mild troponin elevation noted, Bedside echo shows good contractility, noted on cardiac Elevated Pro-Donte to 211.93 Treatment: -Started on vasopressin and levophed, maintain MAP more than 65 -Patient on Tamiflu, will continue (08/09- -Continue Zosyn, azithromycin, (08/10- linezolid (08/11- -Discontinued vancomycin (08/10-08/11) Follow-up: -follow troponin every 6 hours -Follow lactate levels #Congestive heart failure, HFpEF EF 55 to 60% # Mild aortic stenosis, mitral stenosis Differential diagnosis: Systolic versus diastolic heart failure Diagnostic workup: Patient complained of dyspnea at baseline, orthopnea on admission, 2+ leg edema bilaterally just below the knees, BNP 275 Repeat 618 Patient on Lasix at home, last ejection fraction unknown, echo done during this hospitalization Echo significant for Normal LV size and function. Mild LVH. Estimated EF 55-60%. Cannot determine diastolic function due to AFib. Mildly dilated RV and normal RV function. Could not visualize TR or tricuspid valve well. Unable to estimate RVSP and PAH. All valves poorly visualized. Mild AV stenosis, max gradient 33mmHg, vmax 2.8m/s. Mild AI and Mild AI IVC dilated Treatment: -Patient received 80 mg Lasix BID (08/10) -Will hold diuresis -Consulted cardiology, appreciate recommendations Follow-up: -Monitor urine output #Atrial fibrillation Differential diagnosis: Patient has history of A-fib, currently rate controlled Diagnostic workup: EKG shows atrial fibrillation, irregular rate noted on telemetry at bedside, rate controlled Treatment: -Will consider IV amiodarone if patient in atrial fibrillation with rapid ventricular response -On Eliquis at home for A-fib Follow-up: -Telemonitoring #Elevated troponin Differential diagnosis: Demand ischemia, NSTEMI type Diagnostic workup: EKG negative for ST elevation Serial troponins noted to be elevated Troponins mildly elevated, high suspicion of demand ischemia, repeat EKG negative Treatment: -Will trend troponin every 6 hours Follow-up: -Will consider EKG, continue plastic joint maker #Hypertension #Hyperlipidemia #History of coronary artery disease Has a past medical history of hyperlipidemia with a previous history of AL approximately 5 years ago. Patient takes rosuvastatin 40 mg at bedtime. Patient has a past medical history of hypertension on losartan. Patient started on amlodipine 5 mg due to ARIANA during this hospitalization, will hold in setting of shock. Pulmonary #Acute hypoxic/hypercapnic respiratory failure secondary to #Influenza A #Aspiration pneumonia #COPD Differential diagnosis: Aspiration pneumonia, Influenza A, less likely COPD exacerbation, pulmonary embolism, pulmonary edema Diagnostic workup: Bedside influenza A positive, active aspiration event noted Worsening of chest x-ray noted CTA significant for bilateral pneumonia and ARDS pattern Patient has history of COPD, about 40 pack years Treatment: -DuoNeb every 6 hours -Patient on Tamiflu, will continue (08/09- -Continue Zosyn, azithromycin, (08/10- linezolid (08/11- -Discontinued vancomycin (08/10-08/11) -Patient on mechanical ventilation Follow-up: -Optimize mechanical ventilator settings -Follow blood gas -Follow sputum culture Gastrointestinal # Hepatitis Differential diagnosis: Shock liver, low suspicion of venous congestion or fluid Diagnostic workup: AST 553, ALT 254, significant rise in LFTs noted Treatment: Will treat underlying cause Follow-up: Follow LFTs in AM Renal/Genitourinary #Acute kidney injury Differential diagnosis: Prerenal versus ATN in setting of ischemia Diagnostic workup: Elevated creatinine 1.6 on admission likely reflecting an ARIANA. Baseline unknown. Patient was not given fluids in setting of possible CHF exacerbation Treatment: -Worsening of renal function noted -Will monitor renal function -Consulted pharmacy to dose medications renally -Avoid nephrotoxic agents Follow-up: -Follow renal panel in a.m. Endocrine #Type 2 diabetes mellitus, insulin-dependent # Hyperglycemia Patient has a past medical history of diabetes mellitus type 2 Home medication include Lantus 12 units, Januvia (Sitagliptin), Jardiance (Empagliflozin), and Ozempic. Patient stated he has lost about 120 lbs. Diagnostic workup: Hemoglobin A1c 7.1 Treatment: -Will hold sliding scale insulin and Lantus -Patient will be started on insulin gtt. due to significant hyperglycemia, due to IV steroids. Follow-up: -Monitor fingerstick blood glucose every 6 hours Hematology #Leukocytosis Possibly due to underlying sepsis Infectious Disease #Influenza A #Pneumonia -See respiratory system for details Integumentary #Bilateral venous stasis Differential diagnosis: Chronic venous insufficiency Treatment: Wound care as needed DVT prophylaxis: Heparin GI prophylaxis: Protonix Diet: N.p.o. Lines: Peripheral IV, right IJ central line, right circumflex A-line Code status: Full code Catheter: [place] catheter, inserted 08/10 Case discussed with Attending Dr. Murry and Dr. Dotson PGY3. Ju Saez PGY1 Disclaimer: This note was dictated by speech recognition. Minor errors in rabbet operator may be present due to voice recognition software.
[2024-08-11 13:24] LABS: Albumin, Serum 3.4 gm/dL (3.4-4.8); Anion Gap 12 (7-16); BUN/Creatinine Ratio 16 Ratio (12-20); Blood Urea Nitrogen 57 mg/dL (9-23); Calcium 7.6 mg/dL (8.3-10.6); Calcium (Corrected) 8.1 mg/dL (8.5-10.1); Chloride 96 mMol/L (98-107); Creatinine (Component) 3.5 mg/dL (0.6-1.3); Estimated Creatinine Clearance 33.8 mL/min (>60); Osmolality,Calculated 289 (275-295); Phosphorous 6.2 mg/dL (2.4-5.1); Potassium 5.3 mMol/L (3.4-5.1); Sodium 127 mMol/L (136-145); eGFR 19 See Note
[2024-08-11] MEDS: Norepinephrine/D5W 8mg/250ml 8 MG/250 ML BAG 91.373 MG IV ×3 (13:25→19:49)
[2024-08-11 13:26] LABS: Glucose 417 mg/dL (74-106)
[2024-08-11] MEDS: INSULIN REG 100 UNITS/100 ML 100 UNIT/100 ML BAG 7 UNIT IV (13:38)
[2024-08-11 13:48] LABS: Cocci Serology, IgG Negative (Negative)
--- NOTE | 2024-08-11 13:50 | ESPR_ITS ---
Documentation for date of: 08/11/24 Subjective Subjective Interval history: 08/11/2024: Patient examined at bedside today. No acute overnight events on telemetry. Patient is still mechanically ventilated, PEEP of 12, respiratory of 28, tidal volume of 500 on volume control. Patient was given 80 Lasix today and was able to put out approximately 500 mL, however patient's creatinine jumped up to 2.9 today. Most recent ABG showed pH of roughly 7.15 pCO2 in the 50s. AST ALT jumped to 553 and 254. Patient remains to be borderline bradycardic, still in A-fib rate 61. Will continue with current management, will hold off on diuresis at this time. Primary team to further workup for pulmonary embolus with CTA. Exam Vital Signs Temp Pulse Resp BP Pulse Ox O2 Del Method O2 Flow Rate 103 F H 67 30 H 98/56 L 90 L Mechanical Ventilation 15 08/11/24 12:15 08/11/24 13:15 08/11/24 12:37 08/11/24 13:15 08/11/24 13:15 08/10/24 19:30 08/10/24 11:39 FiO2 50 08/11/24 12:37 Narrative Exam General: AAOx0, dishelved, morbidly obese man, unkempt, bearded male HEENT: Moist mucous membranes, conjunctiva clear, EOMI,skin tags present Cardiovascular: Pansystolic murmur ausculated upon mitral valve and R sternal border, no carotid bruit appreciated, radial pulses +2 bilat, irregularly irregular, Radial A-line present, bilat wrist restraints present Pulmonary: Mechanical breath sounds appreciated, TV 500, PEEP 12, FiO2 100, RR 28 GI: No ascites noted, bowel sounds present, however, abd obesity Extremities: venous stasis noted, unkempt feet, +2 bilat edema in LE, some edema noted along IT band as well Neuro: AAOx0 Objective Labs 08/11/24 03:13 08/11/24 12:48 Labs: Laboratory Results - last 24 hr 08/09/24 08/10/24 08/10/24 20:06 13:55 15:48 WBC RBC Hgb Hct MCV MCH MCHC RDW Std Deviation Plt Count Neut % (Auto) Lymph % (Auto) [place] % (Auto) Eos % (Auto) Baso % (Auto) Neut # (Auto) Lymph # (Auto) [place] # (Auto) Eos # (Auto) Baso # (Auto) Immature Gran # (Auto) Absolute Nucleated RBC Immature Gran % Nucleated RBC % APTT Puncture Site Right Radial ABG pH 6.97 L* D ABG pCO2 95 H* D ABG pO2 64 L ABG HCO3 22 ABG O2 Saturation 80 L ABG Base Excess -12 L Oxygen Liter Flow FiO2 100 Sodium Potassium Chloride Carbon Dioxide Anion Gap BUN Creatinine Estim Creat Clear Calc eGFR BUN/Creatinine Ratio Glucose Calculated Osmolality Lactic Acid Calcium Corrected Calcium Phosphorus Magnesium Total Bilirubin AST ALT Alkaline Phosphatase Troponin I 0.170 H* Total Protein Albumin Globulin Albumin/Globulin Ratio Procalcitonin Cocc[place]ides IgG Ab Negative Coccidioides IgM Ab Negative 08/10/24 08/10/24 08/10/24 16:46 17:42 19:28 WBC RBC Hgb Hct MCV MCH MCHC RDW Std Deviation Plt Count Neut % (Auto) Lymph % (Auto) [place] % (Auto) Eos % (Auto) Baso % (Auto) Neut # (Auto) Lymph # (Auto) [place] # (Auto) Eos # (Auto) Baso # (Auto) Immature Gran # (Auto) Absolute Nucleated RBC Immature Gran % Nucleated RBC % APTT Puncture Site Arterial Line Arterial Line ABG pH 6.99 L* 7.01 L* ABG pCO2 78 H* D 75 H* ABG pO2 41 L* D 47 L* ABG HCO3 19 L 19 L ABG O2 Saturation 58 L 72 L ABG Base Excess -14 L -13 L Oxygen Liter Flow FiO2 100 100 Sodium Potassium Chloride Carbon Dioxide Anion Gap BUN Creatinine Estim Creat Clear Calc eGFR BUN/Creatinine Ratio Glucose Calculated Osmolality Lactic Acid 4.6 H* Calcium Corrected Calcium Phosphorus Magnesium Total Bilirubin AST ALT Alkaline Phosphatase Troponin I Total Protein Albumin Globulin Albumin/Globulin Ratio Procalcitonin [place]occ[place]ides IgG Ab Coccidioides IgM Ab 08/10/24 08/10/24 08/10/24 20:48 21:13 21:23 WBC RBC Hgb Hct MCV MCH MCHC RDW Std Deviation Plt Count Neut % (Auto) Lymph % (Auto) [place] % (Auto) Eos % (Auto) Baso % (Auto) Neut # (Auto) Lymph # (Auto) [place] # (Auto) Eos # (Auto) Baso # (Auto) Immature Gran # (Auto) Absolute Nucleated RBC Immature Gran % Nucleated RBC % APTT Puncture Site Cancelled Arterial Line ABG pH Cancelled 7.08 L* ABG pCO2 Cancelled 69 H ABG pO2 Cancelled 61 L ABG HCO3 Cancelled 20 ABG O2 Saturation Cancelled 87 L ABG Base Excess Cancelled -11 L Oxygen Liter Flow Cancelled FiO2 Cancelled 100 Sodium Potassium Chloride Carbon Dioxide Anion Gap BUN Creatinine Estim Creat Clear Calc eGFR BUN/Creatinine Ratio Glucose Calculated Osmolality Lactic Acid Calcium Corrected Calcium Phosphorus Magnesium Total Bilirubin AST ALT Alkaline Phosphatase Troponin I 0.230 H* Total Protein Albumin Globulin Albumin/Globulin Ratio Procalcitonin [place]ides IgG Ab Coccidioides IgM Ab 08/11/24 08/11/24 08/11/24 00:34 03:13 04:08 WBC 17.6 H RBC 4.90 Hgb 13.4 L Hct 42.8 MCV 87 MCH 27.3 MCHC 31.3 RDW Std Deviation 46.6 H Plt Count 219 Neut % (Auto) 92 H Lymph % (Auto) 4 L [place] % (Auto) 3 Eos % (Auto) 0 Baso % (Auto) 0 Neut # (Auto) 16.1 H Lymph # (Auto) 0.7 L [place] # (Auto) 0.6 Eos # (Auto) 0.0 Baso # (Auto) 0.0 Immature Gran # (Auto) 0.08 H Absolute Nucleated RBC 0.00 Immature Gran % 1 H Nucleated RBC % 0 APTT Puncture Site Arterial Line Arterial Line ABG pH 7.14 L* 7.16 L* ABG pCO2 60 H 54 H ABG pO2 83 D 114 H D ABG HCO3 20 19 L ABG O2 Saturation 96 99 H ABG Base Excess -10 L -10 L Oxygen Liter Flow FiO2 100 85 Sodium 131 L Potassium 4.8 D Chloride 99 Carbon Dioxide 19.9 L Anion Gap 12 BUN 53 H Creatinine 2.9 H D Estim Creat Clear Calc 40.7 L eGFR 23 L BUN/Creatinine Ratio 18 Glucose 353 H D Calculated Osmolality 291 Lactic Acid 2.3 H Calcium 7.9 L Corrected Calcium 8.2 L Phosphorus 6.0 H Magnesium 2.1 Total Bilirubin 1.6 H D AST 553 H* ALT 254 H Alkaline Phosphatase 30 L D Troponin I 0.290 H* Total Protein 6.3 Albumin 3.6 D Globulin 2.7 Albumin/Globulin Ratio 1.3 Procalcitonin Coccidioides IgG Ab Coccidioides IgM Ab 08/11/24 08/11/24 08/11/24 07:10 09:25 12:48 WBC RBC Hgb Hct MCV MCH MCHC RDW Std Deviation Plt Count Neut % (Auto) Lymph % (Auto) [place] % (Auto) Eos % (Auto) Baso % (Auto) Neut # (Auto) Lymph # (Auto) [place] # (Auto) Eos # (Auto) Baso # (Auto) Immature Gran # (Auto) Absolute Nucleated RBC Immature Gran % Nucleated RBC % APTT 38.2 H Puncture Site ABG pH ABG pCO2 ABG pO2 ABG HCO3 ABG O2 Saturation ABG Base Excess Oxygen Liter Flow FiO2 Sodium 127 L Potassium 5.3 H D Chloride 96 L Carbon Dioxide 19.0 L Anion Gap 12 BUN 57 H Creatinine 3.5 H D Estim Creat Clear Calc 33.8 L eGFR 19 L BUN/Creatinine Ratio 16 Glucose 417 H* D Calculated Osmolality 289 Lactic Acid 2.6 H Calcium 7.6 L Corrected Calcium 8.1 L Phosphorus 6.2 H Magnesium Total Bilirubin AST ALT Alkaline Phosphatase Troponin I 0.379 H* Total Protein Albumin 3.4 Globulin Albumin/Globulin Ratio Procalcitonin 211.93 H Coccidioides IgG Ab Coccidioides IgM Ab ABG Interpretation ABG results: 08/10/24 08/10/24 08/10/24 11:34 13:55 16:46 ABG pH 7.21 L 6.97 L* D 6.99 L* ABG pCO2 49 H 95 H* D 78 H* D ABG pO2 60 L 64 L 41 L* D ABG HCO3 20 22 19 L ABG O2 Saturation 86 L 80 L 58 L ABG Base Excess -8 L -12 L -14 L 08/10/24 08/10/24 08/10/24 19:28 20:48 21:13 ABG pH 7.01 L* Cancelled 7.08 L* ABG pCO2 75 H* Cancelled 69 H ABG pO2 47 L* Cancelled 61 L ABG HCO3 19 L Cancelled 20 ABG O2 Saturation 72 L Cancelled 87 L ABG Base Excess -13 L Cancelled -11 L 08/11/24 08/11/24 00:34 04:08 ABG pH 7.14 L* 7.16 L* ABG pCO2 60 H 54 H ABG pO2 83 D 114 H D ABG HCO3 20 19 L ABG O2 Saturation 96 99 H ABG Base Excess -10 L -10 L Quality Measures Quality Measures none Assessment & Plan Assessment Current Active Medications: Generic Name Dose Route Start Last Admin Trade Name Frefrankie PRN Reason Stop Dose Admin Acetaminophen 650 mg 08/11/24 08:37 Acetaminophen 325 Mg Tablet PO 09/10/24 05:56 Q6HR PRN FEVER >101 Albuterol/Ipratropium 3 ml 08/09/24 19:00 08/11/24 12:30 Albuterol/Ipratropium (Duoneb) Rt Aspen 3 Ml Nebu INH 09/08/24 18:59 3 ml Q6HRRT ASHWIN Administration Aspirin 81 mg 08/11/24 09:00 08/11/24 08:18 Aspirin Ec 81 Mg Tabec PO 09/10/24 08:59 81 mg QDAY ASHWIN Administration Rosuvastatin 20 Mg 0 ea 08/09/24 21:00 08/10/24 21:31 PO 09/08/24 20:59 20 tablet HS ASHWIN Administration Dextrose 25 ml 08/09/24 15:31 Dextrose 50%-Water Inj 50 Ml Syringe IV 09/08/24 15:30 Q15MIN PRN BG 50-70 responsive npo pt Dextrose 50 ml 08/09/24 15:31 Dextrose 50%-Water Inj 50 Ml Syringe IV 09/08/24 15:30 Q15MIN PRN BG <50 OR BG <70 & pt unresponsive Furosemide 40 mg 08/10/24 21:00 08/11/24 08:17 Furosemide Inj 10 Mg/Ml 4ml Vial IVP 09/09/24 20:59 40 mg BID ASHWIN Administration Glucagon 1 mg 08/09/24 15:31 Glucagon Inj 1 Mg Vial IM Q15MIN PRN BG <70, and no IV access Heparin Sodium (Porcine) 5,000 unit 08/11/24 06:00 08/11/24 13:14 Heparin Sod Inj 5000 Unit/Ml Vial SC 08/25/24 05:59 5,000 unit Q8HR ASHWIN Administration Azithromycin 500 mg/ Sodium 250 mls @ 250 mls/hr 08/10/24 11:26 08/11/24 09:50 Chloride IV 08/17/24 11:25 250 mls/hr QDAY ASHWIN Administration Fentanyl Citrate 2,500 mcg in 250 mls @ 2.5 mls/hr 08/10/24 14:20 08/11/24 06:00 Sublimaze Inj 2,500 Mcg/250 Ml Bag IV 08/15/24 14:19 75 mcg/hr .Q24H PRN 7.5 mls/hr PER PROTOCOL Titration Protocol 25 MCG/HR Vasopressin/Sodium Chloride 20 unit in 100 mls @ 9 mls/hr 08/10/24 14:53 08/11/24 13:00 Vasostrict/Ns Ivpb IV 09/09/24 14:52 0.03 unit/min .Q11H7M PRN 9 mls/hr PER PROTOCOL Administration Protocol 0.03 UNIT/MIN Norepinephrine/Dextrose 8 mg in 250 mls @ 14.738 mls/hr 08/10/24 15:30 08/11/24 09:00 Levophed In D5w 8mg/250ml IV 09/09/24 15:29 0.29 mcg/kg/min .[id number] PRN 85.478 mls/hr PER PROTOCOL Titration Protocol 0.05 MCG/KG/MIN Piperacillin Sod/Tazobactam 100 mls @ 200 mls/hr 08/10/24 15:31 08/11/24 12:44 Sod 4.5 gm/ Sodium Chloride IV 08/17/24 15:30 200 mls/hr Q6HR ASHWIN Administration Insulin Human Regular 100 unit in 100 mls @ 7 mls/hr 08/11/24 09:05 08/11/24 13:38 Myxredlin IV 09/10/24 09:04 7 unit/hr .[id number] PRN 7 mls/hr PER PROTOCOL Administration Protocol 7 UNIT/HR Linezolid 600 mg in 300 mls @ 300 mls/hr 08/11/24 10:53 08/11/24 11:55 Zyvox Ivpb IV 08/18/24 10:52 300 mls/hr Q12HR ASHWIN Administration Insulin Glargine 12 unit 08/09/24 21:00 08/10/24 22:04 Insulin Glargine (Lantus) 5 Unit/0.05 Ml (Per 5 Units) SC 09/08/24 20:59 12 unit HS ASHWIN Administration Insulin Human Lispro 0 unit 08/11/24 00:00 08/11/24 06:17 Insulin Lispro (Admelog) 1 Unit/0.01 Ml Unit SC 09/10/24 00:00 5 unit Q6HR ASHWIN Administration Protocol Mirtazapine 45 mg 08/09/24 21:00 08/10/24 21:28 Mirtazapine 15 Mg Tablet PO 09/08/24 20:59 45 mg HS ASHWIN Administration Ondansetron HCl 4 mg 08/09/24 15:20 Ondansetron Inj 2 Mg/Ml Inj 2 Ml IV 09/08/24 15:19 Q6H PRN NAUSEA OR VOMITING Protocol Oseltamivir Phosphate 75 mg 08/09/24 15:50 08/11/24 08:18 Oseltamivir 75 Mg Capsule PO 08/13/24 21:01 75 mg BID ASHWIN Administration Pantoprazole Sodium 40 mg 08/09/24 15:30 08/11/24 08:18 Pantoprazole Inj 40 Mg Vial IVP 09/08/24 15:29 40 mg QDAY ASHWIN Administration Paroxetine HCl 40 mg 08/09/24 21:00 08/10/24 21:29 Paroxetine Hcl 10 Mg Tablet PO 09/08/24 20:59 40 mg HS ASHWIN Administration Risperidone 6 mg 08/09/24 21:00 08/10/24 21:29 Risperidone 1 Mg Tablet PO 09/08/24 20:59 6 mg HS ASHWIN Administration Tamsulosin HCl 0.4 mg 08/09/24 16:00 08/11/24 08:18 Tamsulosin Hcl 0.4 Mg Capsule PO 09/08/24 15:59 0.4 mg QDAY ASHWIN Administration Topiramate 50 mg 08/09/24 21:00 08/10/24 21:28 Topiramate 25 Mg Tablet PO 09/08/24 20:59 50 mg HS ASHWIN Administration Plan Assessment Andrew is a 64 y/o male with past medical history of hypertension, hyperlipidemia, CAD, type 2 diabetes insulin-dependent, CHF, A-fib (on Eliquis 5mg twice daily), history of seizures who is currently admitted into the ICU for acute hypoxic hypercarbic respiratory failure requiring intubation and likely septic shock secondary to influenza A. #Septic shock secondary to #Influenza A #? Superimposed bacterial infection Influenza A positive Currently on levophed (0.21 mcg) and vasopressin (.03) Pt currently has A line at this time Blood cultures NG1D, sputum negative Plan: -Tamiflu started for patient -Vanc and Zoysn -Treat infection to wean down pressors ?Follow-up CTA #Hx of CAD #Acute exacerbation of HFpEF with diastolic dysfunction #Elevated troponins Echo shows EF 55-60%, normal LV, mild LVH, dilated RV, IVC dilated, AV stenosis Last troponin .579 Plan: -Continue to trend troponins -Will hold on diuresis at this time due to ARIANA -Resume ASA #Chronic, A-fib, rate controlled, on home Eliquis [id number] HAS-BLED: 1 Rate:Bradycardia Rhythm:Irregular AC: Has home Eliquis Pt is currently on pressors Plan: -Will hold on resuming any rate controlled medicines at this time #IDDM #Hyperlipidemia #Hypertension Total Cholesterol: 83 LDL:30 A1c 7.1 Plan: Holding BP meds as he is hypotensive and on pressors Resumed home Rosuvastatin Primary team to handle BG #Acute hypoxic hypercarbic respiratory failure #Respiratory acidosis #? hx of COPD #? OHS Likely multifactorial, could be also due to flash pulmonary edema due rapid changes However, this could also be due to infectious cause, OHS, COPD Extensive smoking history, pt is most likely has COPD On ventilator currently, will adjust settings and PEEP to bring down acidosis ABG pH: 7.15, PCO2= ~50s Plan: -Follow up CTA -Treat underlying infection -Pulmonary hygiene -Recommend to give HCO3- -ABGS -Consider levalbuterol considering afib hx #ARIANA, prerenal #Shock liver #History of depression #History of seizures #Normocytic Anemia #Mild Hyponatremia Hypo-osmolar, Hypervolemic Above managed by ICU team Patient seen and care discussed with my attending physician, Dr. Karrie Merritt, PGY-1 Attending Provider Attestation/Addendum I reviewed the resident Dr. Gaming consultation progress note and agree with the resident findings and plan in the note above and have also edited the documentation to reflect my findings and plan. Nacho Yoon M.D. Interventional Cardiology
--- NOTE | 2024-08-11 14:47 | PC.SS ---
Update: Patient currently intubated/sedated. Patient receiving pressor support. No feedings at current time. Patient received chest CT today.
[2024-08-11 15:06] LABS: Base Excess -10 (-3-3); HCO3 18 mEq/L (20-26); Inspired Oxygen, FIO2 50 %; O2 Saturation 93 % (91-98); PCO2 50 mmHg (32.0-48.0); PO2 72 mmHg (83-108)
[2024-08-11 15:08] LABS: Allen Test Not Performed; Puncture Site Arterial Line; pH, Arterial 7.17 (7.35-7.45)
[2024-08-11 16:44] LABS: Troponin I 0.517 ng/mL (0.0-0.045)
[2024-08-11] MEDS: fentaNYL 2,500 MCG/250 ML BAG 2,500 MCG/250 ML BAG 17.5 MCG IV (18:03)
[2024-08-11] MEDS: SODIUM BICARB INJ 8.4% 1 mEq/ML VIAL 50 ML 150 MEQ IV (18:42)
--- NOTE | 2024-08-11 19:06 | ESOP_ITS ---
<Statement entered by Idalmis Murry MD - 08/12/24 08:16> I was immediately available to provide assistance. Procedures Procedure Date / Time 08/11/24 1900 Arterial Line Size (Gauge): 20 Central Line Placement Right Femoral: Indication(s): other (dialysis catheter ) Informed consent obtained: obtained from surrogate decision maker Time out done, and the following verified: correct patient, side and site, procedure, patient position and implants and/or equipment Patient placed on monitor/pulse ox: Yes Hand Hygiene: scrub, soap & water and alcohol-based hand rub Max Sterile Barrier Techniques used: cap, mask, sterile gown, sterile gloves and sterile full body drape Central line prep: Povidone-Iodine 1% and sterile drapes applied Local anesthesia used: lidocaine 1% Amount of anesthesia used (mL): 10 Ultrasound used for placement: Yes Sterile Technique if Ultrasound used, including sterile gel: yes Central line lumen inserted: triple Post procedure: sutured in place, good blood return, all ports aspirated, flushed, capped and sterile dressing applied Post procedure x-ray: tip of catheter in good position Patient tolerated procedure: well EBL(ml): 15 Complications: none Procedure comment: Procedure performed under supervision of cinder worker Dr. Murry. Evens Min MD, PGY 2. Disclaimer: This note was dictated by speech recognition. Minor errors in flavor extractor may be present due to voice recognition software.
--- NOTE | 2024-08-11 19:07 | XR_ITS ---
Examination: AP chest single view Technique one AP portable supine chest single view Exam date and time: August 11, 2024 1931 hrs. Comparison August 10, 2024 Indications: Hypoxic respiratory failure postintubation Findings: Mild prominence left ventricle Severe bilateral lung opacity Endotracheal tube tip 5 cm above ioana Orogastric tube in the stomach satisfactory position Right internal jugular central line tip SVC no pneumothorax Impression: Again noted severe bilateral pneumonia ARDS pattern
[2024-08-11] MEDS: INSULIN REG 100 UNITS/100 ML 100 UNIT/100 ML BAG 20.5 UNIT IV ×2 (19:53→23:59)
[2024-08-11 20:00] LABS: Lactate (Lactic Acid) 3.4 mMol/L (0.4-2.0)
[2024-08-11 20:13] LABS: Base Excess -7 (-3-3); HCO3 21 mEq/L (20-26); Inspired Oxygen, FIO2 50 %; O2 Saturation 96 % (91-98); PCO2 55 mmHg (32.0-48.0); PO2 82 mmHg (83-108)
[2024-08-11 20:18] LABS: Allen Test Performed/OK; Puncture Site Arterial Line
[2024-08-11 20:32] LABS: Albumin, Serum 3.3 gm/dL (3.4-4.8); Anion Gap 14 (7-16); BUN/Creatinine Ratio 14 Ratio (12-20); Blood Urea Nitrogen 57 mg/dL (9-23); Calcium 7.7 mg/dL (8.3-10.6); Calcium (Corrected) 8.3 mg/dL (8.5-10.1); Carbon Dioxide 20.1 mMol/L (20.0-31.0); Chloride 97 mMol/L (98-107); Estimated Creatinine Clearance 29.6 mL/min (>60); Glucose 262 mg/dL (74-106); Osmolality,Calculated 287 (275-295); Phosphorous 5.1 mg/dL (2.4-5.1); Potassium 3.9 mMol/L (3.4-5.1); Sodium 131 mMol/L (136-145); eGFR 16 See Note
[2024-08-11] MEDS: TOPIRAMATE 25 MG TABLET 50 MG PO (22:09)
[2024-08-11] MEDS: ROSUVASTATIN 20 MG PO (22:09)
[2024-08-11 22:19] LABS: Troponin I 0.431 ng/mL (0.0-0.045)
[2024-08-11 22:57] LABS: Reflex Lactate? Y
[2024-08-11 23:25] LABS: Lactic Acid, 3 HR 2.4 mMol/L (0.4-2.0)
[2024-08-11 23:26] LABS: Base Excess -6 (-3-3); HCO3 22 mEq/L (20-26); Inspired Oxygen, FIO2 45 %; O2 Saturation 98 % (91-98); PCO2 49 mmHg (32.0-48.0); PO2 93 mmHg (83-108); pH, Arterial 7.25 (7.35-7.45)
[2024-08-11 23:30] LABS: Allen Test Performed/OK; Puncture Site Arterial Line
[2024-08-12] VITALS (125 sets, daily range): BP systolic 80–184; BP diastolic 48–129; PULSE 74–155; RESP 24–52; TEMP 36–37.9; O2SAT 95–100; BMI 45.5
[2024-08-12 00:01] LABS: Albumin, Serum 3.2 gm/dL (3.4-4.8); Anion Gap 11 (7-16); BUN/Creatinine Ratio 18 Ratio (12-20); Blood Urea Nitrogen 68 mg/dL (9-23); Calcium 7.3 mg/dL (8.3-10.6); Calcium (Corrected) 7.9 mg/dL (8.5-10.1); Carbon Dioxide 23.1 mMol/L (20.0-31.0); Chloride 97 mMol/L (98-107); Creatinine (Component) 3.8 mg/dL (0.6-1.3); Estimated Creatinine Clearance 31.1 mL/min (>60); Glucose 180 mg/dL (74-106); Osmolality,Calculated 287 (275-295); Phosphorous 3.9 mg/dL (2.4-5.1); Potassium 3.7 mMol/L (3.4-5.1); Sodium 131 mMol/L (136-145); eGFR 17 See Note
[2024-08-12] MEDS: ALBUTEROL/IPRATROPIUM (Duoneb) RT SOL 3 ML NEBU INH ×4 (01:22→18:19)
[2024-08-12] MEDS: Norepinephrine/D5W 8mg/250ml 8 MG/250 ML BAG 85.478 MG IV (01:36)
[2024-08-12 02:15] LABS: Base Excess -4 (-3-3); HCO3 23 mEq/L (20-26); Inspired Oxygen, FIO2 45 %; O2 Saturation 98 % (91-98); PCO2 50 mmHg (32.0-48.0); PO2 90 mmHg (83-108); pH, Arterial 7.27 (7.35-7.45)
[2024-08-12 02:40] LABS: Puncture Site Arterial Line
--- NOTE | 2024-08-12 03:01 | PC.NURSE ---
notified Dr Cervantes of tending 1 hour blood glucose results- (decreased insulin drip by 1/2 per protocol orders)and ( insuin drip by 1/2 per protocol orders) Dr Cervantes changed orders to hold insulin drip at this time but continue to do 1 hour bedside blood glucose
[2024-08-12 04:03] LABS: Basophils % (Auto) 0 % (0-2.5); Eosinophils % (Auto) 0 % (0-10); Hematocrit 35.7 % (41.0-53.0); Hemoglobin 11.7 g/dL (13.5-16.0); Immature Granulocytes % (Auto) 1 % (0-0); Immature Granulocytes Auto 0.11 Thou/mm3 (0.00-0.00); Lymphocytes # (Auto) 0.9 Thou/mm3 (1.0-4.8); Lymphocytes % (Auto) 5 % (10-50); Mean Corpuscular HGB Conc 32.8 g/dl (31.0-37.0); Mean Corpuscular Hemoglobin 27.5 pg (25.0-35.0); Mean Corpuscular Volume 84 fL (80-100); Monocytes # (Auto) 0.9 Thou/mm3 (0.0-0.8); Monocytes % (Auto) 5 % (0-12); Neutrophils # (Auto) 15.8 Thou/mm3 (1.8-7.7); Neutrophils % (Auto) 89 % (37-80); Nucleated Red Blood Cell # 0.02 Thou/mm3 (0.00-0.00); Nucleated Red Blood Cell % 0 /100 WBC (0); Platelet Count 209 Thou/mm3 (140-440); RDW Standard Deviation 44.4 fL (35.1-43.9); Red Blood Count 4.26 Miln/mm3 (4.50-5.90); White Blood Count 17.8 Thou/mm3 (3.8-10.6)
[2024-08-12 04:14] LABS: Alanine Aminotransferase 364 U/L (10-49); Albumin, Serum 3.5 gm/dL (3.4-4.8); Albumin/Globulin Ratio 1.4 (1.2-2.2); Alkaline Phosphatase 23 U/L (46-116); Anion Gap 11 (7-16); Aspartate Amino Transferase 423 U/L (0-34); BUN/Creatinine Ratio 16 Ratio (12-20); Bilirubin,Total 2.4 mg/dL (0.3-1.2); Blood Urea Nitrogen 64 mg/dL (9-23); Calcium 7.6 mg/dL (8.3-10.6); Carbon Dioxide 24.2 mMol/L (20.0-31.0); Chloride 96 mMol/L (98-107); Creatinine (Component) 3.9 mg/dL (0.6-1.3); Estimated Creatinine Clearance 30.3 mL/min (>60); Globulin 2.5 gm/dL (2.3-3.5); Glucose 57 mg/dL (74-106); Magnesium 1.9 mg/dL (1.6-2.6); Osmolality,Calculated 278 (275-295); Phosphorous 4.3 mg/dL (2.4-5.1); Sodium 131 mMol/L (136-145); eGFR 16 See Note
[2024-08-12 04:15] LABS: Troponin I 0.334 ng/mL (0.0-0.045)
[2024-08-12] MEDS: DEXTROSE 50%-WATER INJ 50 ML SYRINGE IV (04:24)
[2024-08-12] MEDS: MIDAZOLAM INJ 1 MG/ML VIAL 2 ML 2 MG IV (04:25)
[2024-08-12] MEDS: AMIODARONE 150 MG IVPB 150 MG/100 ML BAG 600 MG IV (04:45)
[2024-08-12] MEDS: Norepinephrine/D5W 8mg/250ml 8 MG/250 ML BAG 73.688 MG IV (04:53)
[2024-08-12] MEDS: AMIODARONE 360 MG IVPB 360 MG/200 ML BAG 33.333 MG IV (05:00)
--- NOTE | 2024-08-12 05:00 | XR_ITS ---
Examination: AP portable semiupright chest single view Technique : AP portable semiupright chest single view Exam date and time: February 09, 2025 0544 hrs. Comparison August 10, 2024 Indications: Hypoxic respiratory failure, postintubation, severe pneumonia ARDS on earlier chest imaging Findings: Worsening bilateral lung opacity Endotracheal tube tip 4.2 cm above ioana Orogastric tube is in the stomach, the tip is below the level film Interval right internal jugular central line tip SVC satisfactory position No pneumothorax Moderate osteopenia Impression: Worsening severe bilateral pneumonia ARDS pattern
[2024-08-12] MEDS: Norepinephrine/D5W 8mg/250ml 8 MG/250 ML BAG 50.108 MG IV (05:42)
[2024-08-12] MEDS: PIPER/TAZO 3.375 GM 50 ML IV ×3 (05:54→21:44)
[2024-08-12] MEDS: HEPARIN SOD INJ 5000 UNIT/ML VIAL SC (05:54)
[2024-08-12 06:47] LABS: Base Excess -4 (-3-3); HCO3 22 mEq/L (20-26); O2 Saturation 100 % (91-98); PCO2 41 mmHg (32.0-48.0); PO2 177 mmHg (83-108); pH, Arterial 7.34 (7.35-7.45)
[2024-08-12 06:54] LABS: Allen Test Not Performed; Inspired Oxygen, FIO2 40 %; Puncture Site Arterial Line
[2024-08-12] MEDS: PANTOPRAZOLE INJ 40 MG VIAL IVP (08:00)
[2024-08-12] MEDS: LINEZOLID 600 MG IVPB 600 MG/300 ML BAG 300 MG IV ×2 (08:00→21:43)
[2024-08-12] MEDS: fentaNYL 2,500 MCG/250 ML BAG 2,500 MCG/250 ML BAG 27.5 MCG IV ×2 (08:00→16:32)
[2024-08-12] MEDS: AZITHROMYCIN INJ 500 MG in SODIUM CHLORIDE 0.9% 250 ML 250 ML 250 MG IV (08:00)
[2024-08-12] MEDS: ASPIRIN EC 81 MG TABEC PO (08:00)
[2024-08-12] MEDS: TAMSULOSIN HCL 0.4 MG CAPSULE PO (08:00)
[2024-08-12 08:30] LABS: Albumin, Serum 3.4 gm/dL (3.4-4.8); Anion Gap 13 (7-16); BUN/Creatinine Ratio 17 Ratio (12-20); Blood Urea Nitrogen 67 mg/dL (9-23); Calcium 7.7 mg/dL (8.3-10.6); Calcium (Corrected) 8.2 mg/dL (8.5-10.1); Carbon Dioxide 22.4 mMol/L (20.0-31.0); Chloride 94 mMol/L (98-107); Glucose 164 mg/dL (74-106); Osmolality,Calculated 282 (275-295); Phosphorous 4.6 mg/dL (2.4-5.1); Potassium 4.6 mMol/L (3.4-5.1); Sodium 129 mMol/L (136-145); eGFR 16 See Note
[2024-08-12] MEDS: BUMETANIDE INJ 0.25 MG/ML VIAL 4 ML 2 MG IVP (08:38)
--- NOTE | 2024-08-12 08:48 | PD.RESPRO ---
Documentation for date of: 08/12/24 Subjective Subjective Interval history: Andrew Bella is a 64-year-old male with a past medical history of hypertension, hyperlipidemia, CAD, insulin-dependent type 2 diabetes mellitus, CHF, A-fib, depression, and history of seizures who recently moved from [place] and initially presented to ED on 08/09 with dyspnea and productive cough with associated pleuritic chest pain, cough, wheezing, and weakness. Also noted to have bilateral lower extremity edema and orthopnea, but denied paroxysmal nocturnal dyspnea. In ED, vitals significant for temperature of 100.8 ?F and on room air. Labs showed BUN 29, 1.6, GFR 48, glucose 228, LDH 256, BNP 275, UA 4+ glucose, U tox negative. Influenza A positive. Patient subsequently started on Tamiflu as well as Lasix for possible CHF exacerbation. Throughout hospital course, on 08/10 patient has had 2 rapid responses very well for desaturation requiring BiPAP and IV steroids/antibiotics and the second for hypoxia with altered mentation, requiring intubation for airway protection prompting transfer to ICU for further care. Around time of intubation, ABG showed pH 6.97, pCO2 97. MAP noted to drop below 65 and was started on Levophed and vasopressin. Cardiology consulted for further evaluation of possible CHF exacerbation and A-fib. Although unable to determine baseline renal function, creatinine increased from 1.8 to 2.9 overnight and so nephrology was consulted. Given that patient is intubated, history obtained from chart review. 08/11: Patient seen and examined in ICU, intubated and undergoing cooling measures for fever of 103.1 ?F. Creatinine noted to jump from 1.8 to 2.9 overnight. Suspect acute tubular necrosis in setting of hypotension with MAP less than 65 mmHg noted on 08/10. Also associated increase in lactic acid from 2.2 to 4.6 as well as overnight increase in LFTs (AST 17 to 553 and AST from 10 to 54). Will follow-up on urine studies as well as renal ultrasound. 08/12: Patient seen and examined in ICU, intubated and ventilated. Labs and orders reviewed. Na 129, BUN 67, Cr steadily increasing to 4.0, Ca 8.2. LFTs remain elevated (AST 423, ALT 364). Produced less than 20 cc of urine overnight. Still pending urine studies. Vancomycin changed to linezolid, continuing azithromycin and Zosyn. CTA chest: Bilateral pneumonia with arts pattern. Repeat CXR showed worsening of pneumonia and ARDS. DC'd IV steroids and amlodipine. Vas-Cath placed for hemodialysis. Exam Vital Signs Temp Pulse Resp BP Pulse Ox O2 Del Method O2 Flow Rate 99.1 F 124 H 28 H 103/55 L 99 Mechanical Ventilation 15 08/12/24 08:00 08/12/24 08:38 08/12/24 06:18 08/12/24 08:38 08/12/24 08:30 08/10/24 19:30 08/10/24 11:39 FiO2 40 08/12/24 06:18 Narrative Exam General: AOx0, intubated, sedated HEENT: NC/AT, mucous membranes moist, bilateral sclera anicteric Cardiovascular: tachycardic, S1/S2 present, no murmurs appreciated Pulmonary: soft crackles appreciated Abdominal: soft, non-tender, non-distended, no rebound/guarding, normal bowel sounds present Musculoskeletal: venous stasis changes noted, non-pitting lower extremity edema Objective Labs 08/12/24 03:40 08/12/24 10:45 Labs: Laboratory Results - last 24 hr 08/09/24 08/11/24 08/11/24 20:06 09:25 12:48 WBC RBC Hgb Hct MCV MCH MCHC RDW Std Deviation Plt Count Neut % (Auto) Lymph % (Auto) [place] % (Auto) Eos % (Auto) Baso % (Auto) Neut # (Auto) Lymph # (Auto) [place] # (Auto) Eos # (Auto) Baso # (Auto) Immature Gran # (Auto) Absolute Nucleated RBC Immature Gran % Nucleated RBC % APTT 38.2 H Puncture Site ABG pH ABG pCO2 ABG pO2 ABG HCO3 ABG O2 Saturation ABG Base Excess FiO2 Sodium 127 L Potassium 5.3 H D Chloride 96 L Carbon Dioxide 19.0 L Anion Gap 12 BUN 57 H Creatinine 3.5 H D Estim Creat Clear Calc 33.8 L eGFR 19 L BUN/Creatinine Ratio 16 Glucose 417 H* D Calculated Osmolality 289 Lactic Acid Calcium 7.6 L Corrected Calcium 8.1 L Phosphorus 6.2 H Magnesium Total Bilirubin AST ALT Alkaline Phosphatase Troponin I 0.379 H* Total Protein Albumin 3.4 Globulin Albumin/Globulin Ratio Beta-Hydroxybutyrate/Acetoacetate Procalcitonin 211.93 H Coccidioides IgG Ab Negative 08/11/24 08/11/24 08/11/24 14:56 15:23 19:52 WBC RBC Hgb Hct MCV MCH MCHC RDW Std Deviation Plt Count Neut % (Auto) Lymph % (Auto) [place] % (Auto) Eos % (Auto) Baso % (Auto) Neut # (Auto) Lymph # (Auto) [place] # (Auto) Eos # (Auto) Baso # (Auto) Immature Gran # (Auto) Absolute Nucleated RBC Immature Gran % Nucleated RBC % APTT Puncture Site Arterial Line ABG pH 7.17 L* ABG pCO2 50 H ABG pO2 72 L D ABG HCO3 18 L ABG O2 Saturation 93 ABG Base Excess -10 L FiO2 50 Sodium 131 L Potassium 3.9 D Chloride 97 L Carbon Dioxide 20.1 Anion Gap 14 BUN 57 H Creatinine 4.0 H D Estim Creat Clear Calc 29.6 L eGFR 16 L BUN/Creatinine Ratio 14 Glucose 262 H D Calculated Osmolality 287 Lactic Acid 3.4 H Calcium 7.7 L Corrected Calcium 8.3 L Phosphorus 5.1 Magnesium Total Bilirubin AST ALT Alkaline Phosphatase Troponin I 0.517 H* Total Protein Albumin 3.3 L Globulin Albumin/Globulin Ratio Beta-Hydroxybutyrate/Acetoacetate 0.0 Procalcitonin Coccidioides IgG Ab 08/11/24 08/11/24 08/11/24 20:05 21:18 23:14 WBC RBC Hgb Hct MCV MCH MCHC RDW Std Deviation Plt Count Neut % (Auto) Lymph % (Auto) [place] % (Auto) Eos % (Auto) Baso % (Auto) Neut # (Auto) Lymph # (Auto) [place] # (Auto) Eos # (Auto) Baso # (Auto) Immature Gran # (Auto) Absolute Nucleated RBC Immature Gran % Nucleated RBC % APTT Puncture Site Arterial Line Arterial Line ABG pH 7.20 L 7.25 L ABG pCO2 55 H 49 H ABG pO2 82 L 93 ABG HCO3 21 22 ABG O2 Saturation 96 98 ABG Base Excess -7 L -6 L FiO2 50 45 Sodium Potassium Chloride Carbon Dioxide Anion Gap BUN Creatinine Estim Creat Clear Calc eGFR BUN/Creatinine Ratio Glucose Calculated Osmolality Lactic Acid Calcium Corrected Calcium Phosphorus Magnesium Total Bilirubin AST ALT Alkaline Phosphatase Troponin I 0.431 H* Total Protein Albumin Globulin Albumin/Globulin Ratio Beta-Hydroxybutyrate/Acetoacetate Procalcitonin Coccidioides IgG Ab 08/11/24 08/12/24 08/12/24 23:15 02:06 03:40 WBC 17.8 H RBC 4.26 L Hgb 11.7 L Hct 35.7 L MCV 84 MCH 27.5 MCHC 32.8 RDW Std Deviation 44.4 H Plt Count 209 Neut % (Auto) 89 H Lymph % (Auto) 5 L [place] % (Auto) 5 Eos % (Auto) 0 Baso % (Auto) 0 Neut # (Auto) 15.8 H Lymph # (Auto) 0.9 L [place] # (Auto) 0.9 H Eos # (Auto) 0.0 Baso # (Auto) 0.0 Immature Gran # (Auto) 0.11 H Absolute Nucleated RBC 0.02 H Immature Gran % 1 H Nucleated RBC % 0 APTT Puncture Site Arterial Line ABG pH 7.27 L ABG pCO2 50 H ABG pO2 90 ABG HCO3 23 ABG O2 Saturation 98 ABG Base Excess -4 L FiO2 45 Sodium 131 L 131 L Potassium 3.7 4.0 Chloride 97 L 96 L Carbon Dioxide 23.1 24.2 Anion Gap 11 11 BUN 68 H 64 H Creatinine 3.8 H 3.9 H Estim Creat Clear Calc 31.1 L 30.3 L eGFR 17 L 16 L BUN/Creatinine Ratio 18 16 Glucose 180 H D 57 L D Calculated Osmolality 287 278 Lactic Acid 2.4 H Calcium 7.3 L 7.6 L Corrected Calcium 7.9 L 8.0 L Phosphorus 3.9 4.3 Magnesium 1.9 Total Bilirubin 2.4 H D AST 423 H ALT 364 H Alkaline Phosphatase 23 L D Troponin I 0.334 H* Total Protein 6.0 Albumin 3.2 L 3.5 Globulin 2.5 Albumin/Globulin Ratio 1.4 Beta-Hydroxybutyrate/Acetoacetate Procalcitonin Coccidioides IgG Ab 08/12/24 06:30 WBC RBC Hgb Hct MCV MCH MCHC RDW Std Deviation Plt Count Neut % (Auto) Lymph % (Auto) [place] % (Auto) Eos % (Auto) Baso % (Auto) Neut # (Auto) Lymph # (Auto) [place] # (Auto) Eos # (Auto) Baso # (Auto) Immature Gran # (Auto) Absolute Nucleated RBC Immature Gran % Nucleated RBC % APTT Puncture Site Arterial Line ABG pH 7.34 L ABG pCO2 41 ABG pO2 177 H D ABG HCO3 22 ABG O2 Saturation 100 H ABG Base Excess -4 L FiO2 40 Sodium Potassium Chloride Carbon Dioxide Anion Gap BUN Creatinine Estim Creat Clear Calc eGFR BUN/Creatinine Ratio Glucose Calculated Osmolality Lactic Acid Calcium Corrected Calcium Phosphorus Magnesium Total Bilirubin AST ALT Alkaline Phosphatase Troponin I Total Protein Albumin Globulin Albumin/Globulin Ratio Beta-Hydroxybutyrate/Acetoacetate Procalcitonin Coccidioides IgG Ab ABG Interpretation ABG results: 08/10/24 08/10/24 08/10/24 11:34 13:55 16:46 ABG pH 7.21 L 6.97 L* D 6.99 L* ABG pCO2 49 H 95 H* D 78 H* D ABG pO2 60 L 64 L 41 L* D ABG HCO3 20 22 19 L ABG O2 Saturation 86 L 80 L 58 L ABG Base Excess -8 L -12 L -14 L 08/10/24 08/10/24 08/10/24 19:28 20:48 21:13 ABG pH 7.01 L* Cancelled 7.08 L* ABG pCO2 75 H* Cancelled 69 H ABG pO2 47 L* Cancelled 61 L ABG HCO3 19 L Cancelled 20 ABG O2 Saturation 72 L Cancelled 87 L ABG Base Excess -13 L Cancelled -11 L 08/11/24 08/11/24 08/11/24 00:34 04:08 14:56 ABG pH 7.14 L* 7.16 L* 7.17 L* ABG pCO2 60 H 54 H 50 H ABG pO2 83 D 114 H D 72 L D ABG HCO3 20 19 L 18 L ABG O2 Saturation 96 99 H 93 ABG Base Excess -10 L -10 L -10 L 08/11/24 08/11/24 08/12/24 20:05 23:14 02:06 ABG pH 7.20 L 7.25 L 7.27 L ABG pCO2 55 H 49 H 50 H ABG pO2 82 L 93 90 ABG HCO3 21 22 23 ABG O2 Saturation 96 98 98 ABG Base Excess -7 L -6 L -4 L 08/12/24 06:30 ABG pH 7.34 L ABG pCO2 41 ABG pO2 177 H D ABG HCO3 22 ABG O2 Saturation 100 H ABG Base Excess -4 L Quality Measures Quality Measures none Assessment & Plan Assessment Current Active Medications: Generic Name Dose Route Start Last Admin Trade Name Freq PRN Reason Stop Dose Admin Acetaminophen 650 mg 08/11/24 08:37 Acetaminophen 325 Mg Tablet PO 09/10/24 05:56 Q6HR PRN FEVER >101 Albuterol/Ipratropium 3 ml 08/09/24 19:00 08/12/24 06:16 Albuterol/Ipratropium (Duoneb) Rt Aspen 3 Ml Nebu INH 09/08/24 18:59 3 ml Q6HRRT ASHWIN Administration Aspirin 81 mg 08/11/24 09:00 08/12/24 08:00 Aspirin Ec 81 Mg Tabec PO 09/10/24 08:59 81 mg QDAY ASHWIN Administration Rosuvastatin 20 Mg 0 ea 08/09/24 21:00 08/11/24 22:09 PO 09/08/24 20:59 1 tablet HS ASHWIN Administration Dextrose 25 ml 08/09/24 15:31 Dextrose 50%-Water Inj 50 Ml Syringe IV 09/08/24 15:30 Q15MIN PRN BG 50-70 responsive npo pt Dextrose 50 ml 08/09/24 15:31 08/12/24 04:24 Dextrose 50%-Water Inj 50 Ml Syringe IV 09/08/24 15:30 50 ml Q15MIN PRN Administration BG <50 OR BG <70 & pt unresponsive Furosemide 40 mg 08/10/24 21:00 08/11/24 08:17 Furosemide Inj 10 Mg/Ml 4ml Vial IVP 09/09/24 20:59 40 mg BID ASHWIN Administration Glucagon 1 mg 08/09/24 15:31 Glucagon Inj 1 Mg Vial IM Q15MIN PRN BG <70, and no IV access Heparin Sodium (Porcine) 5,000 unit 08/11/24 06:00 08/12/24 05:54 Heparin Sod Inj 5000 Unit/Ml Vial SC 08/25/24 05:59 5,000 unit Q8HR ASHWIN Administration Azithromycin 500 mg/ Sodium 250 mls @ 250 mls/hr 08/10/24 11:26 08/12/24 08:00 Chloride IV 08/17/24 11:25 250 mls/hr QDAY ASHWIN Administration Fentanyl Citrate 2,500 mcg in 250 mls @ 2.5 mls/hr 08/10/24 14:20 08/12/24 08:00 Sublimaze Inj 2,500 Mcg/250 Ml Bag IV 08/15/24 14:19 275 mcg/hr .Q24H PRN 27.5 mls/hr PER PROTOCOL Administration Protocol 25 MCG/HR Vasopressin/Sodium Chloride 20 unit in 100 mls @ 9 mls/hr 08/10/24 14:53 08/11/24 22:31 Vasostrict/Ns Ivpb IV 09/09/24 14:52 0.03 unit/min .Q11H7M PRN 9 mls/hr PER PROTOCOL Administration Protocol 0.03 UNIT/MIN Norepinephrine/Dextrose 8 mg in 250 mls @ 14.738 mls/hr 08/10/24 15:30 08/12/24 08:19 Levophed In D5w 8mg/250ml IV 09/09/24 15:29 0.15 mcg/kg/min .[id number] PRN 44.213 mls/hr PER PROTOCOL Titration Protocol 0.05 MCG/KG/MIN Insulin Human Regular 100 unit in 100 mls @ 7 mls/hr 08/11/24 09:05 08/12/24 02:58 Myxredlin IV 09/10/24 09:04 0 unit/hr .[id number] PRN 0 mls/hr PER PROTOCOL Titration Protocol 7 UNIT/HR Linezolid 600 mg in 300 mls @ 300 mls/hr 08/11/24 10:53 08/12/24 08:00 Zyvox Ivpb IV 08/18/24 10:52 300 mls/hr Q12HR ASHWIN Administration Piperacillin/Tazobactam/Dextrose 50 mls @ 12.5 mls/hr 08/12/24 06:00 08/12/24 05:54 Zosyn IV 08/19/24 05:59 12.5 mls/hr Q8HR ASHWIN Administration Amiodarone HCl/Dextrose 360 mg in 200 mls @ 33.333 mls/hr 08/12/24 04:11 08/12/24 05:00 Nexterone Ivpb IV 08/12/24 10:10 33.333 mls/hr .Q6H ONE Administration Amiodarone HCl/Dextrose 360 mg in 200 mls @ 16.667 mls/hr 08/12/24 10:10 Nexterone Ivpb IV 08/13/24 10:09 .Q12H ASHWIN Insulin Glargine 12 unit 08/09/24 21:00 08/10/24 22:04 Insulin Glargine (Lantus) 5 Unit/0.05 Ml (Per 5 Units) SC 09/08/24 20:59 12 unit HS ASHWIN Administration Insulin Human Lispro 0 unit 08/11/24 00:00 08/11/24 06:17 Insulin Lispro (Admelog) 1 Unit/0.01 Ml Unit SC 09/10/24 00:00 5 unit Q6HR ASHWIN Administration Protocol Mirtazapine 45 mg 08/09/24 21:00 08/10/24 21:28 Mirtazapine 15 Mg Tablet PO 09/08/24 20:59 45 mg HS ASHWIN Administration Ondansetron HCl 4 mg 08/09/24 15:20 Ondansetron Inj 2 Mg/Ml Inj 2 Ml IV 09/08/24 15:19 Q6H PRN NAUSEA OR VOMITING Protocol Oseltamivir Phosphate 30 mg 08/12/24 09:00 Oseltamivir 30 Mg Capsule PO 08/14/24 09:01 BID ASHWIN Pantoprazole Sodium 40 mg 08/09/24 15:30 08/12/24 08:00 Pantoprazole Inj 40 Mg Vial IVP 09/08/24 15:29 40 mg QDAY ASHWIN Administration Paroxetine HCl 40 mg 08/09/24 21:00 08/10/24 21:29 Paroxetine Hcl 10 Mg Tablet PO 09/08/24 20:59 40 mg HS AHSWIN Administration Pharmacy Consult 1 each 08/11/24 20:59 Pharmacy Renal Dose Adjustment 1 Ea XX 09/10/24 20:58 PRN PRN CONSULT Risperidone 6 mg 08/09/24 21:00 08/10/24 21:29 Risperidone 1 Mg Tablet PO 09/08/24 20:59 6 mg HS ASHWIN Administration Tamsulosin HCl 0.4 mg 08/09/24 16:00 08/12/24 08:00 Tamsulosin Hcl 0.4 Mg Capsule PO 09/08/24 15:59 0.4 mg QDAY ASHWIN Administration Topiramate 50 mg 08/09/24 21:00 08/11/24 22:09 Topiramate 25 Mg Tablet PO 09/08/24 20:59 50 mg HS ASHWIN Administration Plan Andrew Bella is a 64-year-old male with a past medical history of hypertension, hyperlipidemia, CAD, insulin-dependent type 2 diabetes mellitus, CHF, A-fib, depression, and history of seizures who initially presented to ED on 08/09 with dyspnea and productive cough with associated pleuritic chest pain, admitted for management of influenza PNA vs CHF exacerbation. Upgraded on 08/10 for airway protection requiring intubation and nephrology consulted in setting of acute kidney injury with creatinine increase from 1.89 to 2.9. #Acute kidney injury #? Acute tubular necrosis Creatinine noted to jump from 1.8 to2.9, and continues to increase to 4.0. Suspect acute tubular necrosis in setting of hypotension in setting of MAP less than 65 mmHg noted on 08/10 with associated increase in lactic acid from 2.2 to 4.6 as well as overnight increase in LFTs (AST 17 to 553 and AST from 10 to 54). Decreased urine output also supports ATN. Renal US showed mild bilateral renal parenchymal scar formation without hydronephrosis. ? Planned dialysis today, 08/12 as patient had minimal urine output after bumex x1 ? If ATN, expect decreased urine output with azotemia and will need to monitor for hyperkalemia, uremia, fluid retention ? Follow-up urine studies ? Avoid nephrotoxic agents ? Renally dose medications #Acute metabolic encephalopathy #History of seizures #Shock, distributive versus obstructive versus cardiogenic #HFpEF (EF 55 to 60%) #Atrial fibrillation #Elevated troponin #Transaminitis #Hypertension #Hyperlipidemia #CAD #Acute hypoxic/hypercapnic respiratory failure, secondary to #Influenza A pneumonia #COPD #Type 2 diabetes mellitus, insulin-dependent ? Continue management per primary team ----- Plan discussed with attending physician Dr. Jean-Claude Khan MD PGY-1 Internal Medicine Attending Provider Attestation/Addendum Patient seen and examined with resident physician Dr. Angel. Note reviewed, agree with findings and recommendations. Patient currently seen in ICU. Urine output very minimal despite giving Bumex. Vas-Cath placed by ICU team. Patient remains on ventilator, pressors. Admitted with flu/hypoxic respiratory failure, sepsis and went into [facility]/ATN. Patient currently seen on dialysis. Tolerating dialysis without any problems. Hemodialysis for 3 hours, 2K, ultrafiltration 2-3 L, Epogen 6000, no heparin ordered. Critical care time spent more than 35 minutes regarding plan of care and disease management Plan of care discussed with the dialysis nurse. Please see dialysis flowsheet for further details. Plan of care discussed with Dr. Murry.
[2024-08-12] MEDS: INSULIN LISPRO (AdmeLOG) 1 UNIT/0.01 ML UNIT SC ×4 (09:55→21:51)
[2024-08-12] MEDS: INSULIN GLARGINE (Lantus) 5 UNIT/0.05 ML (PER 5 UNITS) 15 UNIT SC (09:55)
[2024-08-12] MEDS: PHENYLEPHRINE HCL 40 MG in SODIUM CHLORIDE 0.9% 96 ML 12.083 MG IV ×2 (09:58→18:21)
[2024-08-12] MEDS: VASOPRESSIN IN NS IVPB 20 UNIT/100 ML BAG 9 UNIT IV ×2 (10:12→19:14)
[2024-08-12] MEDS: Norepinephrine/D5W 8mg/250ml 8 MG/250 ML BAG 20.633 MG IV (10:14)
[2024-08-12 10:21] LABS: Vancomycin,Trough 11.8 mcg/mL (5.0-10.0)
[2024-08-12] MEDS: AMIODARONE 360 MG IVPB 360 MG/200 ML BAG 16.667 MG IV ×2 (10:23→23:42)
[2024-08-12] MEDS: OSELTAMIVIR 30 MG CAPSULE PO ×2 (10:24→21:44)
[2024-08-12 10:26] LABS: Base Excess -5 (-3-3); HCO3 21 mEq/L (20-26); Inspired Oxygen, FIO2 40 %; O2 Saturation 100 % (91-98); PCO2 42 mmHg (32.0-48.0); PO2 134 mmHg (83-108); pH, Arterial 7.31 (7.35-7.45)
[2024-08-12 10:27] LABS: Allen Test Not Performed; Puncture Site Arterial Line
[2024-08-12 10:58] LABS: Base Excess, Venous -5 (-3-3); O2 Saturation, Venous 87 % (96-97); PCO2, Venous 43 mmHg (36-56); PO2, Venous 53 mmHg (15-58)
[2024-08-12 11:26] LABS: Albumin, Serum 3.1 gm/dL (3.4-4.8); Anion Gap 13 (7-16); BUN/Creatinine Ratio 15 Ratio (12-20); Blood Urea Nitrogen 63 mg/dL (9-23); Calcium 7.4 mg/dL (8.3-10.6); Calcium (Corrected) 8.1 mg/dL (8.5-10.1); Chloride 95 mMol/L (98-107); Creatinine (Component) 4.3 mg/dL (0.6-1.3); Estimated Creatinine Clearance 27.9 mL/min (>60); Glucose 218 mg/dL (74-106); Osmolality,Calculated 283 (275-295); Phosphorous 4.6 mg/dL (2.4-5.1); Potassium 4.7 mMol/L (3.4-5.1); Sodium 129 mMol/L (136-145); eGFR 15 See Note
--- NOTE | 2024-08-12 12:41 | PC.DIETICIAN ---
Nutrition prescription Nepro at 25 ml/hr via OG tube by pump. Advance 10 ml every 8 hrs to goal rate of 45 ml/hr x 24 hrs. If no IV fluids, water flushes of 25 ml/hr (or per MD).
--- NOTE | 2024-08-12 13:15 | ESPR_ITS ---
Documentation for date of: 08/12/24 Subjective Subjective Interval history: 08/11/2024: Patient examined at bedside today. No acute overnight events on telemetry. Patient is still mechanically ventilated, PEEP of 12, respiratory of 28, tidal volume of 500 on volume control. Patient was given 80 Lasix today and was able to put out approximately 500 mL, however patient's creatinine jumped up to 2.9 today. Most recent ABG showed pH of roughly 7.15 pCO2 in the 50s. AST ALT jumped to 553 and 254. Patient remains to be borderline bradycardic, still in A-fib rate 61. Will continue with current management, will hold off on diuresis at this time. Primary team to further workup for pulmonary embolus with CTA. 08/12/2024: Patient examined at bedside today. Patient went into A-fib overnight, reaching up to 138 for heart rate, patient was then started on amnio drip. Patient is still mechanically ventilated. Addition of more A-line was done yesterday. Patient is now on 3 pressors with addition of phenylephrine. CTA showed ARDS pattern. Will continue to treat, however patient to get cath or for dialysis. BUN/creatinine 16 and 4.3 respectively, hemoglobin had 12, ABG pH 7.34 and bicarb 22, pCO2 41, potassium 4.7, magnesium 1.9. ?We recommend to continue Amio drip in addition with oral Amio 200 mg twice daily before adding any additional Av bebo blockers like digoxin. Check Qtc daily while on IV and oral meds ?Continue Amio drip for 2 to 3 days Exam Vital Signs Temp Pulse Resp BP Pulse Ox O2 Del Method O2 Flow Rate 99.8 F 124 H 28 H 110/76 100 Mechanical Ventilation 15 08/12/24 12:00 08/12/24 12:15 08/12/24 12:14 08/12/24 12:15 08/12/24 12:15 08/10/24 19:30 08/10/24 11:39 FiO2 40 08/12/24 12:14 Narrative Exam General: AAOx0, dishelved, morbidly obese man, unkempt, bearded male HEENT: Moist mucous membranes, conjunctiva clear, EOMI,skin tags present Cardiovascular: Pansystolic murmur ausculated upon mitral valve and R sternal border, no carotid bruit appreciated, radial pulses +2 bilat, irregularly irregular, Radial A-line present, bilat wrist restraints present Pulmonary: Mechanical breath sounds appreciated, TV 500, PEEP 12, FiO2 100, RR 28 GI: No ascites noted, bowel sounds present, however, abd obesity Extremities: venous stasis noted, unkempt feet, +2 bilat edema in LE, some edema noted along IT band as well Neuro: AAOx0 Objective Labs 08/13/24 05:00 08/13/24 20:21 Labs: Laboratory Results - last 24 hr 08/09/24 08/11/24 08/11/24 20:06 12:48 14:56 WBC RBC Hgb Hct MCV MCH MCHC RDW Std Deviation Plt Count Neut % (Auto) Lymph % (Auto) [place] % (Auto) Eos % (Auto) Baso % (Auto) Neut # (Auto) Lymph # (Auto) [place] # (Auto) Eos # (Auto) Baso # (Auto) Immature Gran # (Auto) Absolute Nucleated RBC Immature Gran % Nucleated RBC % Puncture Site Arterial Line ABG pH 7.17 L* ABG pCO2 50 H ABG pO2 72 L D ABG HCO3 18 L ABG O2 Saturation 93 ABG Base Excess -10 L VBG pH VBG pCO2 VBG pO2 VBG O2 Sat ([place]uy) VBG Base Excess FiO2 50 Sodium 127 L Potassium 5.3 H D Chloride 96 L Carbon Dioxide 19.0 L Anion Gap 12 BUN 57 H Creatinine 3.5 H D Estim Creat Clear Calc 33.8 L eGFR 19 L BUN/Creatinine Ratio 16 Glucose 417 H* D Calculated Osmolality 289 Lactic Acid Calcium 7.6 L Corrected Calcium 8.1 L Phosphorus 6.2 H Magnesium Total Bilirubin AST ALT Alkaline Phosphatase Troponin I Total Protein Albumin 3.4 Globulin Albumin/Globulin Ratio Beta-Hydroxybutyrate/Acetoacetate Vancomycin Trough Coccidioides IgG Ab Negative 08/11/24 08/11/24 08/11/24 15:23 19:52 20:05 WBC RBC Hgb Hct MCV MCH MCHC RDW Std Deviation Plt Count Neut % (Auto) Lymph % (Auto) [place] % (Auto) Eos % (Auto) Baso % (Auto) Neut # (Auto) Lymph # (Auto) [place] # (Auto) Eos # (Auto) Baso # (Auto) Immature Gran # (Auto) Absolute Nucleated RBC Immature Gran % Nucleated RBC % Puncture Site Arterial Line ABG pH 7.20 L ABG pCO2 55 H ABG pO2 82 L ABG HCO3 21 ABG O2 Saturation 96 ABG Base Excess -7 L VBG pH VBG pCO2 VBG pO2 VBG O2 Sat ([place]) VBG Base Excess FiO2 50 Sodium 131 L Potassium 3.9 D Chloride 97 L Carbon Dioxide 20.1 Anion Gap 14 BUN 57 H Creatinine 4.0 H D Estim Creat Clear Calc 29.6 L eGFR 16 L BUN/Creatinine Ratio 14 Glucose 262 H D Calculated Osmolality 287 Lactic Acid 3.4 H Calcium 7.7 L Corrected Calcium 8.3 L Phosphorus 5.1 Magnesium Total Bilirubin AST ALT Alkaline Phosphatase Troponin I 0.517 H* Total Protein Albumin 3.3 L Globulin Albumin/Globulin Ratio Beta-Hydroxybutyrate/Acetoacetate 0.0 Vancomycin Trough Coccidioides IgG Ab 08/11/24 08/11/24 08/11/24 21:18 23:14 23:15 WBC RBC Hgb Hct MCV MCH MCHC RDW Std Deviation Plt Count Neut % (Auto) Lymph % (Auto) [place] % (Auto) Eos % (Auto) Baso % (Auto) Neut # (Auto) Lymph # (Auto) [place] # (Auto) Eos # (Auto) Baso # (Auto) Immature Gran # (Auto) Absolute Nucleated RBC Immature Gran % Nucleated RBC % Puncture Site Arterial Line ABG pH 7.25 L ABG pCO2 49 H ABG pO2 93 ABG HCO3 22 ABG O2 Saturation 98 ABG Base Excess -6 L VBG pH VBG pCO2 VBG pO2 VBG O2 Sat ([place]uy) VBG Base Excess FiO2 45 Sodium 131 L Potassium 3.7 Chloride 97 L Carbon Dioxide 23.1 Anion Gap 11 BUN 68 H Creatinine 3.8 H Estim Creat Clear Calc 31.1 L eGFR 17 L BUN/Creatinine Ratio 18 Glucose 180 H D Calculated Osmolality 287 Lactic Acid 2.4 H Calcium 7.3 L Corrected Calcium 7.9 L Phosphorus 3.9 Magnesium Total Bilirubin AST ALT Alkaline Phosphatase Troponin I 0.431 H* Total Protein Albumin 3.2 L Globulin Albumin/Globulin Ratio Beta-Hydroxybutyrate/Acetoacetate Vancomycin Trough Coccidioides IgG Ab 08/12/24 08/12/24 08/12/24 02:06 03:40 06:30 WBC 17.8 H RBC 4.26 L Hgb 11.7 L Hct 35.7 L MCV 84 MCH 27.5 MCHC 32.8 RDW Std Deviation 44.4 H Plt Count 209 Neut % (Auto) 89 H Lymph % (Auto) 5 L [place] % (Auto) 5 Eos % (Auto) 0 Baso % (Auto) 0 Neut # (Auto) 15.8 H Lymph # (Auto) 0.9 L [place] # (Auto) 0.9 H Eos # (Auto) 0.0 Baso # (Auto) 0.0 Immature Gran # (Auto) 0.11 H Absolute Nucleated RBC 0.02 H Immature Gran % 1 H Nucleated RBC % 0 Puncture Site Arterial Line Arterial Line ABG pH 7.27 L 7.34 L ABG pCO2 50 H 41 ABG pO2 90 177 H D ABG HCO3 23 22 ABG O2 Saturation 98 100 H ABG Base Excess -4 L -4 L VBG pH VBG pCO2 VBG pO2 VBG O2 Sat ([place]uy) VBG Base Excess FiO2 45 40 Sodium 131 L Potassium 4.0 Chloride 96 L Carbon Dioxide 24.2 Anion Gap 11 BUN 64 H Creatinine 3.9 H Estim Creat Clear Calc 30.3 L eGFR 16 L BUN/Creatinine Ratio 16 Glucose 57 L D Calculated Osmolality 278 Lactic Acid Calcium 7.6 L Corrected Calcium 8.0 L Phosphorus 4.3 Magnesium 1.9 Total Bilirubin 2.4 H D AST 423 H ALT 364 H Alkaline Phosphatase 23 L D Troponin I 0.334 H* Total Protein 6.0 Albumin 3.5 Globulin 2.5 Albumin/Globulin Ratio 1.4 Beta-Hydroxybutyrate/Acetoacetate Vancomycin Trough Coccidioides IgG Ab 08/12/24 08/12/24 08/12/24 07:32 09:10 10:13 WBC RBC Hgb Hct MCV MCH MCHC RDW Std Deviation Plt Count Neut % (Auto) Lymph % (Auto) [place] % (Auto) Eos % (Auto) Baso % (Auto) Neut # (Auto) Lymph # (Auto) [place] # (Auto) Eos # (Auto) Baso # (Auto) Immature Gran # (Auto) Absolute Nucleated RBC Immature Gran % Nucleated RBC % Puncture Site Arterial Line ABG pH 7.31 L ABG pCO2 42 ABG pO2 134 H D ABG HCO3 21 ABG O2 Saturation 100 H ABG Base Excess -5 L VBG pH VBG pCO2 VBG pO2 VBG O2 Sat ([place]) VBG Base Excess FiO2 40 Sodium 129 L Potassium 4.6 D Chloride 94 L Carbon Dioxide 22.4 Anion Gap 13 BUN 67 H Creatinine 4.0 H Estim Creat Clear Calc 30.0 L eGFR 16 L BUN/Creatinine Ratio 17 Glucose 164 H D Calculated Osmolality 282 Lactic Acid Calcium 7.7 L Corrected Calcium 8.2 L Phosphorus 4.6 Magnesium Total Bilirubin AST ALT Alkaline Phosphatase Troponin I Total Protein Albumin 3.4 Globulin Albumin/Globulin Ratio Beta-Hydroxybutyrate/Acetoacetate Vancomycin Trough 11.8 H Coccidioides IgG Ab 08/12/24 10:45 WBC RBC Hgb Hct MCV MCH MCHC RDW Std Deviation Plt Count Neut % (Auto) Lymph % (Auto) [place] % (Auto) Eos % (Auto) Baso % (Auto) Neut # (Auto) Lymph # (Auto) [place] # (Auto) Eos # (Auto) Baso # (Auto) Immature Gran # (Auto) Absolute Nucleated RBC Immature Gran % Nucleated RBC % Puncture Site ABG pH ABG pCO2 ABG pO2 ABG HCO3 ABG O2 Saturation ABG Base Excess VBG pH 7.30 L VBG pCO2 43 VBG pO2 53 VBG O2 Sat ([place]uy) 87 L VBG Base Excess -5 L FiO2 Sodium 129 L Potassium 4.7 Chloride 95 L Carbon Dioxide 21.0 Anion Gap 13 BUN 63 H Creatinine 4.3 H* Estim Creat Clear Calc 27.9 L eGFR 15 L BUN/Creatinine Ratio 15 Glucose 218 H D Calculated Osmolality 283 Lactic Acid Calcium 7.4 L Corrected Calcium 8.1 L Phosphorus 4.6 Magnesium Total Bilirubin AST ALT Alkaline Phosphatase Troponin I Total Protein Albumin 3.1 L Globulin Albumin/Globulin Ratio Beta-Hydroxybutyrate/Acetoacetate Vancomycin Trough Coccidioides IgG Ab ABG Interpretation ABG results: 08/10/24 08/10/24 08/10/24 11:34 13:55 16:46 ABG pH 7.21 L 6.97 L* D 6.99 L* ABG pCO2 49 H 95 H* D 78 H* D ABG pO2 60 L 64 L 41 L* D ABG HCO3 20 22 19 L ABG O2 Saturation 86 L 80 L 58 L ABG Base Excess -8 L -12 L -14 L VBG pH VBG pCO2 VBG pO2 VBG Base Excess 08/10/24 08/10/24 08/10/24 19:28 20:48 21:13 ABG pH 7.01 L* Cancelled 7.08 L* ABG pCO2 75 H* Cancelled 69 H ABG pO2 47 L* Cancelled 61 L ABG HCO3 19 L Cancelled 20 ABG O2 Saturation 72 L Cancelled 87 L ABG Base Excess -13 L Cancelled -11 L VBG pH VBG pCO2 VBG pO2 VBG Base Excess 08/11/24 08/11/24 08/11/24 00:34 04:08 14:56 ABG pH 7.14 L* 7.16 L* 7.17 L* ABG pCO2 60 H 54 H 50 H ABG pO2 83 D 114 H D 72 L D ABG HCO3 20 19 L 18 L ABG O2 Saturation 96 99 H 93 ABG Base Excess -10 L -10 L -10 L VBG pH VBG pCO2 VBG pO2 VBG Base Excess 08/11/24 08/11/24 08/12/24 20:05 23:14 02:06 ABG pH 7.20 L 7.25 L 7.27 L ABG pCO2 55 H 49 H 50 H ABG pO2 82 L 93 90 ABG HCO3 21 22 23 ABG O2 Saturation 96 98 98 ABG Base Excess -7 L -6 L -4 L VBG pH VBG pCO2 VBG pO2 VBG Base Excess 08/12/24 08/12/24 08/12/24 06:30 10:13 10:45 ABG pH 7.34 L 7.31 L ABG pCO2 41 42 ABG pO2 177 H D 134 H D ABG HCO3 22 21 ABG O2 Saturation 100 H 100 H ABG Base Excess -4 L -5 L VBG pH 7.30 L VBG pCO2 43 VBG pO2 53 VBG Base Excess -5 L Quality Measures Quality Measures none Assessment & Plan Assessment Current Active Medications: Generic Name Dose Route Start Last Admin Trade Name Freq PRN Reason Stop Dose Admin Acetaminophen 650 mg 08/11/24 08:37 Acetaminophen 325 Mg Tablet PO 09/10/24 05:56 Q6HR PRN FEVER >101 Albuterol/Ipratropium 3 ml 08/09/24 19:00 08/12/24 12:12 Albuterol/Ipratropium (Duoneb) Rt Aspen 3 Ml Nebu INH 09/08/24 18:59 3 ml Q6HRRT ASHWIN Administration Aspirin 81 mg 08/11/24 09:00 08/12/24 08:00 Aspirin Ec 81 Mg Tabec PO 09/10/24 08:59 81 mg QDAY ASHWIN Administration Rosuvastatin 20 Mg 0 ea 08/09/24 21:00 08/11/24 22:09 PO 09/08/24 20:59 1 tablet HS ASHWIN Administration Dextrose 25 ml 08/09/24 15:31 Dextrose 50%-Water Inj 50 Ml Syringe IV 09/08/24 15:30 Q15MIN PRN BG 50-70 responsive npo pt Dextrose 50 ml 08/09/24 15:31 08/12/24 04:24 Dextrose 50%-Water Inj 50 Ml Syringe IV 09/08/24 15:30 50 ml Q15MIN PRN Administration BG <50 OR BG <70 & pt unresponsive Furosemide 40 mg 08/10/24 21:00 08/11/24 08:17 Furosemide Inj 10 Mg/Ml 4ml Vial IVP 09/09/24 20:59 40 mg BID ASHWIN Administration Glucagon 1 mg 08/09/24 15:31 Glucagon Inj 1 Mg Vial IM Q15MIN PRN BG <70, and no IV access Heparin Sodium (Porcine) 12,900 unit 08/12/24 11:03 Heparin Sod Inj 5000 Unit/Ml Vial 80 unit/kg (52918 unit) 08/12/24 11:04 IV X1 ONE Protocol Fentanyl Citrate 2,500 mcg in 250 mls @ 2.5 mls/hr 08/10/24 14:20 08/12/24 12:00 Sublimaze Inj 2,500 Mcg/250 Ml Bag IV 08/15/24 14:19 275 mcg/hr .Q24H PRN 27.5 mls/hr PER PROTOCOL Titration Protocol 25 MCG/HR Vasopressin/Sodium Chloride 20 unit in 100 mls @ 9 mls/hr 08/10/24 14:53 08/12/24 10:12 Vasostrict/Ns Ivpb IV 09/09/24 14:52 0.03 unit/min .Q11H7M PRN 9 mls/hr PER PROTOCOL Administration Protocol 0.03 UNIT/MIN Norepinephrine/Dextrose 8 mg in 250 mls @ 14.738 mls/hr 08/10/24 15:30 08/12/24 12:00 Levophed In D5w 8mg/250ml IV 09/09/24 15:29 0.05 mcg/kg/min .[id number] PRN 14.738 mls/hr PER PROTOCOL Titration Protocol 0.05 MCG/KG/MIN Linezolid 600 mg in 300 mls @ 300 mls/hr 08/11/24 10:53 08/12/24 08:00 Zyvox Ivpb IV 08/18/24 10:52 300 mls/hr Q12HR ASHWIN Administration Piperacillin/Tazobactam/Dextrose 50 mls @ 12.5 mls/hr 08/12/24 06:00 08/12/24 05:54 Zosyn IV 08/19/24 05:59 12.5 mls/hr Q8HR ASHWIN Administration Amiodarone HCl/Dextrose 360 mg in 200 mls @ 16.667 mls/hr 08/12/24 10:10 08/12/24 10:23 Nexterone Ivpb IV 08/13/24 10:09 16.667 mls/hr .Q12H ASHWIN Administration Phenylephrine HCl 40 mg/ 100 mls @ 12.083 mls/hr 08/12/24 09:35 08/12/24 12:00 Sodium Chloride IV 09/11/24 09:34 0.5 mcg/kg/min .Q8H17M PRN 12.083 mls/hr Per Sepsis Protocol Titration Protocol 0.5 MCG/KG/MIN Heparin Sodium/Dextrose 25,000 unit in 250 mls @ 17.721 mls/hr 08/12/24 11:15 Heparin In D5w Ivpb IV 08/26/24 11:14 .Q14H7M ASHWIN Protocol 11 UNITS/KG/HR Insulin Glargine 15 unit 08/12/24 09:30 08/12/24 09:55 Insulin Glargine (Lantus) 5 Unit/0.05 Ml (Per 5 Units) SC 09/11/24 09:29 15 unit QDAY ASHWIN Administration Insulin Human Lispro 0 unit 08/12/24 10:00 08/12/24 09:55 Insulin Lispro (Admelog) 1 Unit/0.01 Ml Unit SC 09/11/24 09:59 2 unit Q4HR ASHWIN Administration Protocol Mirtazapine 45 mg 08/09/24 21:00 08/10/24 21:28 Mirtazapine 15 Mg Tablet PO 09/08/24 20:59 45 mg HS ASHWIN Administration Ondansetron HCl 4 mg 08/09/24 15:20 Ondansetron Inj 2 Mg/Ml Inj 2 Ml IV 09/08/24 15:19 Q6H PRN NAUSEA OR VOMITING Protocol Oseltamivir Phosphate 30 mg 08/12/24 09:00 08/12/24 10:24 Oseltamivir 30 Mg Capsule PO 08/14/24 09:01 30 mg BID ASHWIN Administration Pantoprazole Sodium 40 mg 08/09/24 15:30 08/12/24 08:00 Pantoprazole Inj 40 Mg Vial IVP 09/08/24 15:29 40 mg QDAY ASHWIN Administration Paroxetine HCl 40 mg 08/09/24 21:00 08/10/24 21:29 Paroxetine Hcl 10 Mg Tablet PO 09/08/24 20:59 40 mg HS ASHWIN Administration Pharmacy Consult 1 each 08/11/24 20:59 Pharmacy Renal Dose Adjustment 1 Ea XX 09/10/24 20:58 PRN PRN CONSULT Risperidone 6 mg 08/09/24 21:00 08/10/24 21:29 Risperidone 1 Mg Tablet PO 09/08/24 20:59 6 mg HS ASHWIN Administration Tamsulosin HCl 0.4 mg 08/09/24 16:00 08/12/24 08:00 Tamsulosin Hcl 0.4 Mg Capsule PO 09/08/24 15:59 0.4 mg QDAY ASHWIN Administration Topiramate 50 mg 08/09/24 21:00 08/11/24 22:09 Topiramate 25 Mg Tablet PO 09/08/24 20:59 50 mg HS ASHWIN Administration Plan Assessment Andrew is a 64 y/o male with past medical history of hypertension, hyperlipidemia, CAD, type 2 diabetes insulin-dependent, CHF, A-fib (on Eliquis 5mg twice daily), history of seizures who is currently admitted into the ICU for acute hypoxic hypercarbic respiratory failure requiring intubation and likely septic shock secondary to influenza A. #Septic shock secondary to #Influenza A #? Superimposed bacterial infection Influenza A positive Currently on levophed, vasopressin, phenylepiphrine Pt currently has A line at this time Blood cultures NG1D, sputum negative CTA shows severe ARDS like pattern, likely related to Influenza and COPD Plan: -Continue Tamiflu started for patient -Continue Zosyn -Treat infection to wean down pressors #Hx of CAD #Acute exacerbation of HFpEF with diastolic dysfunction #Elevated troponins Echo shows EF 55-60%, normal LV, mild LVH, dilated RV, IVC dilated, AV stenosis Troponins have peaked Patient to setting of ARIANA, and renal failure, patient will need hemodialysis Plan: -Will hold on diuresis at this time due to ARIANA -Resume ASA #Chronic, A-fib, rate controlled, on home Eliquis [id number] HAS-BLED: 1 Irregular and rate in the 120s needed AC:Has home Eliquis Pt is currently on pressors Plan: ?We recommend to continue Amio drip in addition with oral Amio 200 mg twice daily before adding any additional Av bebo blockers like digoxin. Check Qtc daily while on IV and oral meds ?Continue Amio drip for 2 to 3 days #IDDM #Hyperlipidemia #Hypertension Total Cholesterol: 83 LDL:30 A1c 7.1 Plan: Holding BP meds as he is hypotensive and on pressors Resumed home Rosuvastatin Primary team to handle BG #Acute hypoxic hypercarbic respiratory failure #Respiratory acidosis #? hx of COPD #? OHS Likely multifactorial, could be also due to flash pulmonary edema due rapid changes However, this could also be due to infectious cause, OHS, COPD Extensive smoking history, pt is most likely has COPD On ventilator currently, will adjust settings and PEEP to bring down acidosis ABG pH: 7.35, PCO2 41 Plan: -Treat underlying infection -Pulmonary hygiene -Chest physiotherapy -ABGS -Consider levalbuterol considering afib hx #ARIANA, prerenal #Shock liver #History of depression #History of seizures #Normocytic Anemia #Mild Hyponatremia Hypo-osmolar, Hypervolemic Above managed by ICU team Patient seen and care discussed with my attending physician, Dr. Karrie Merritt, PGY-1 Attending Provider Attestation/Addendum I have personally seen and examined the patient separately on the above date of service and discussed the plan of care with the resident. I reviewed the resident Dr. Gaming consultation progress note and agree with the resident findings and plan in the note above and have also edited the documentation to reflect my findings and plan. Nacho Yoon M.D. Interventional Cardiology
--- NOTE | 2024-08-12 13:38 | ESPR_ITS ---
<Statement entered by Idalmis Murry MD - 08/13/24 16:10> TOTAL TIME: 45MINUTES ON DIRECT MEDICAL CARE, MANAGEMENT - COORDINATION AND COUNSELING > 50% OF TOTAL TIME I saw and evaluated the patient. I reviewed the resident?s note and agree with findings and plan as documented in the resident?s note. Improving acute hypoxic respiratory failure and improving ARDS. Will try to liberate to pressure support trials as tolerated. Minimize sedation. Follow-up final culture results and continue empiric antibiotics <Statement entered by Светлана Dotson DO - 08/12/24 21:24> Senior attestation: Patient was examined and case was reviewed with team including attending physician. Note reviewed, I agree with most of its contents and agree with the patient's care. Overnight insulin drip was stopped as glucose levels normalized. Today patient was given bumex 2mg x1, followed up with nephrology team who will proceed with hemodialysis today. Patient noted to develop atrial fibrillation, will continue amiodarone drip and consider digoxin if tachycardia worsens. Given tachycardia in 120-130s today, added phenylephrine with goal of reducing levophed dose. Tube feeds started, will add 15 units lantus with ISS. Светлана Dotson DO PGY-3 Documentation for date of: 08/12/24 Subjective Subjective Interval history: Mr. Bella is a 64-year-old male with a past medical history of hypertension, hyperlipidemia, CAD, diabetes mellitus type 2 insulin-dependent, CHF (unknown ejection fraction), atrial fibrillation, history of seizures, who presented to [facility] emergency room with acute increasing dyspnea and increasing cough. Patient stated that he has been having increasing pleuritic chest pain secondary to productive cough. Patient stated his cough is productive. Come into the emergency room today after being unable to reach the restroom because of increasing shortness of breath. Patient denied typically here with increasing wheezing. Patient denied any sick contacts. Increased perspiration. Increased orthopnea. Increasing shortness of breath. Negative paroxysmal nocturnal orthopnea. Positive for diarrhea. Increased bilateral swelling. History of BPH. History of depression. Patient was admitted on 08/09/2024 for CHF exacerbation and influenza A. Patient history of recent travel, recently moved to [place] from [place]. Patient had a rapid response called earlier this morning for low SpO2 84% despite 8 L of oxygen patient had increased work of breathing was tachypneic with circulation intact, patient was started on IV steroids, IV antibiotics. Eventually patient had another rapid response called for altered mental status, patient was noted to be unresponsive to verbal Kaman, responsive to only painful stimuli, patient is GCS of 7 was unable to protect airway, aspiration noted at bedside and patient was emergently intubated. At bedside patient noted to have pink frothy aspirate, high suspicion of pulmonary edema, patient upgraded to intensive care unit for further management. Patient eventually had a central line and arterial line placed. Attempt was made to reach out to patient's emergency contact, but none was available, eventually contacted patient's friend and primary decision maker Rodrigo Schneider. 08/11/23:Patient seen and examined at bedside, overnight significant improvement in patient's, PS this morning 7.16, pCO2 54, bicarb 19.9, high suspicion of underlying shock distributive due to aspiration pneumonia, ordered CTA chest along with CT abdomen pelvis, no known source for sepsis, CTA shows significant bilateral pneumonia with ARDS pattern, patient's antibiotic therapy optimized to Zosyn, linezolid and azithromycin. Patient is also on Tamiflu due to underlying influenza, methylprednisone discontinued, underlying respiratory disease from aspiration pneumonia, less likely COPD exacerbation, will continue with DuoNeb every 6 hours, will hold Lasix and discontinue vancomycin due to worsening renal function, high suspicion of acute tubular necrosis due to sepsis, elevated LFTs, high possibility of shock liver, patient's blood glucose significantly elevated started on insulin gtt. significant elevation of Pro-Donte noted today, nephrology was consulted due to worsening renal function. 08/12/23: Patient seen and examined at bedside, overnight patient developed atrial fibrillation, started on, patient was given Versed push x 1, insulin drip was discontinued around 3 AM due to normalization of blood glucose levels. Patient seen at bedside this morning, minimal urine output, was given Bumex 2 mg x 1, no urine output noted, discussed with bee robber patient will receive dialysis treatment today goal to remove about 1 L fluid, patient's pressor regimen optimized to Levophed, phenylephrine and vasopressin, will decrease Levophed dose as patient has atrial fibrillation with RVR to minimize increase in heart rate due to Levophed. Patient was started on heparin drip due to underlying atrial fibrillation, will start on tube feeds today, started on 15 units Lantus and sliding scale insulin. Patient's heart rate not well- controlled on amiodarone drip, will consider digoxin 0.5 if needed. Potassium and magnesium optimized at more than 4 and more than 2 respectively. Will continue to monitor patient. Exam Vital Signs Temp Pulse Resp BP Pulse Ox O2 Del Method O2 Flow Rate 99.8 F 124 H 28 H 110/76 100 Mechanical Ventilation 15 08/12/24 12:00 08/12/24 12:15 08/12/24 12:14 08/12/24 12:15 08/12/24 12:15 08/10/24 19:30 08/10/24 11:39 FiO2 40 08/12/24 12:14 Narrative Exam General: AAOx0, intubated, sedated dishelved, morbidly obese man, unkempt, bearded male HEENT: Moist mucous membranes, conjunctiva clear, EOMI,skin tags present, right IJ central line Cardiovascular: Pansystolic murmur ausculated upon mitral valve and R sternal border, no carotid bruit appreciated, radial pulses +2 bilat, irregularly irregular, Radial A-line present, bilat wrist restraints present Pulmonary: Crackles appreciated bilaterally, patient on mechanical ventilation, intubated GI: No ascites noted, bowel sounds present, however, abd obesity Extremities: venous stasis noted, unkempt feet, +2 bilat edema in LE Neuro: Unable to assess due to patient's current condition Objective Labs 08/12/24 03:40 08/12/24 10:45 Labs: Laboratory Results - last 24 hr 08/09/24 08/11/24 08/11/24 20:06 14:56 15:23 WBC RBC Hgb Hct MCV MCH MCHC RDW Std Deviation Plt Count Neut % (Auto) Lymph % (Auto) [place] % (Auto) Eos % (Auto) Baso % (Auto) Neut # (Auto) Lymph # (Auto) [place] # (Auto) Eos # (Auto) Baso # (Auto) Immature Gran # (Auto) Absolute Nucleated RBC Immature Gran % Nucleated RBC % Puncture Site Arterial Line ABG pH 7.17 L* ABG pCO2 50 H ABG pO2 72 L D ABG HCO3 18 L ABG O2 Saturation 93 ABG Base Excess -10 L VBG pH VBG pCO2 VBG pO2 VBG O2 Sat (Chuy) VBG Base Excess FiO2 50 Sodium Potassium Chloride Carbon Dioxide Anion Gap BUN Creatinine Estim Creat Clear Calc eGFR BUN/Creatinine Ratio Glucose Calculated Osmolality Lactic Acid Calcium Corrected Calcium Phosphorus Magnesium Total Bilirubin AST ALT Alkaline Phosphatase Troponin I 0.517 H* Total Protein Albumin Globulin Albumin/Globulin Ratio Beta-Hydroxybutyrate/Acetoacetate Vancomycin Trough Coccidioides IgG Ab Negative 08/11/24 08/11/24 08/11/24 19:52 20:05 21:18 WBC RBC Hgb Hct MCV MCH MCHC RDW Std Deviation Plt Count Neut % (Auto) Lymph % (Auto) [place] % (Auto) Eos % (Auto) Baso % (Auto) Neut # (Auto) Lymph # (Auto) [place] # (Auto) Eos # (Auto) Baso # (Auto) Immature Gran # (Auto) Absolute Nucleated RBC Immature Gran % Nucleated RBC % Puncture Site Arterial Line ABG pH 7.20 L ABG pCO2 55 H ABG pO2 82 L ABG HCO3 21 ABG O2 Saturation 96 ABG Base Excess -7 L VBG pH VBG pCO2 VBG pO2 VBG O2 Sat (Chuy) VBG Base Excess FiO2 50 Sodium 131 L Potassium 3.9 D Chloride 97 L Carbon Dioxide 20.1 Anion Gap 14 BUN 57 H Creatinine 4.0 H D Estim Creat Clear Calc 29.6 L eGFR 16 L BUN/Creatinine Ratio 14 Glucose 262 H D Calculated Osmolality 287 Lactic Acid 3.4 H Calcium 7.7 L Corrected Calcium 8.3 L Phosphorus 5.1 Magnesium Total Bilirubin AST ALT Alkaline Phosphatase Troponin I 0.431 H* Total Protein Albumin 3.3 L Globulin Albumin/Globulin Ratio Beta-Hydroxybutyrate/Acetoacetate 0.0 Vancomycin Trough Coccidioides IgG Ab 08/11/24 08/11/24 08/12/24 23:14 23:15 02:06 WBC RBC Hgb Hct MCV MCH MCHC RDW Std Deviation Plt Count Neut % (Auto) Lymph % (Auto) [place] % (Auto) Eos % (Auto) Baso % (Auto) Neut # (Auto) Lymph # (Auto) [place] # (Auto) Eos # (Auto) Baso # (Auto) Immature Gran # (Auto) Absolute Nucleated RBC Immature Gran % Nucleated RBC % Puncture Site Arterial Line Arterial Line ABG pH 7.25 L 7.27 L ABG pCO2 49 H 50 H ABG pO2 93 90 ABG HCO3 22 23 ABG O2 Saturation 98 98 ABG Base Excess -6 L -4 L VBG pH VBG pCO2 VBG pO2 VBG O2 Sat (Chuy) VBG Base Excess FiO2 45 45 Sodium 131 L Potassium 3.7 Chloride 97 L Carbon Dioxide 23.1 Anion Gap 11 BUN 68 H Creatinine 3.8 H Estim Creat Clear Calc 31.1 L eGFR 17 L BUN/Creatinine Ratio 18 Glucose 180 H D Calculated Osmolality 287 Lactic Acid 2.4 H Calcium 7.3 L Corrected Calcium 7.9 L Phosphorus 3.9 Magnesium Total Bilirubin AST ALT Alkaline Phosphatase Troponin I Total Protein Albumin 3.2 L Globulin Albumin/Globulin Ratio Beta-Hydroxybutyrate/Acetoacetate Vancomycin Trough Coccidioides IgG Ab 08/12/24 08/12/24 08/12/24 03:40 06:30 07:32 WBC 17.8 H RBC 4.26 L Hgb 11.7 L Hct 35.7 L MCV 84 MCH 27.5 MCHC 32.8 RDW Std Deviation 44.4 H Plt Count 209 Neut % (Auto) 89 H Lymph % (Auto) 5 L [place] % (Auto) 5 Eos % (Auto) 0 Baso % (Auto) 0 Neut # (Auto) 15.8 H Lymph # (Auto) 0.9 L [place] # (Auto) 0.9 H Eos # (Auto) 0.0 Baso # (Auto) 0.0 Immature Gran # (Auto) 0.11 H Absolute Nucleated RBC 0.02 H Immature Gran % 1 H Nucleated RBC % 0 Puncture Site Arterial Line ABG pH 7.34 L ABG pCO2 41 ABG pO2 177 H D ABG HCO3 22 ABG O2 Saturation 100 H ABG Base Excess -4 L VBG pH VBG pCO2 VBG pO2 VBG O2 Sat (Chuy) VBG Base Excess FiO2 40 Sodium 131 L 129 L Potassium 4.0 4.6 D Chloride 96 L 94 L Carbon Dioxide 24.2 22.4 Anion Gap 11 13 BUN 64 H 67 H Creatinine 3.9 H 4.0 H Estim Creat Clear Calc 30.3 L 30.0 L eGFR 16 L 16 L BUN/Creatinine Ratio 16 17 Glucose 57 L D 164 H D Calculated Osmolality 278 282 Lactic Acid Calcium 7.6 L 7.7 L Corrected Calcium 8.0 L 8.2 L Phosphorus 4.3 4.6 Magnesium 1.9 Total Bilirubin 2.4 H D AST 423 H ALT 364 H Alkaline Phosphatase 23 L D Troponin I 0.334 H* Total Protein 6.0 Albumin 3.5 3.4 Globulin 2.5 Albumin/Globulin Ratio 1.4 Beta-Hydroxybutyrate/Acetoacetate Vancomycin Trough Coccidioides IgG Ab 08/12/24 08/12/24 08/12/24 09:10 10:13 10:45 WBC RBC Hgb Hct MCV MCH MCHC RDW Std Deviation Plt Count Neut % (Auto) Lymph % (Auto) [place] % (Auto) Eos % (Auto) Baso % (Auto) Neut # (Auto) Lymph # (Auto) [place] # (Auto) Eos # (Auto) Baso # (Auto) Immature Gran # (Auto) Absolute Nucleated RBC Immature Gran % Nucleated RBC % Puncture Site Arterial Line ABG pH 7.31 L ABG pCO2 42 ABG pO2 134 H D ABG HCO3 21 ABG O2 Saturation 100 H ABG Base Excess -5 L VBG pH 7.30 L VBG pCO2 43 VBG pO2 53 VBG O2 Sat (Chuy) 87 L VBG Base Excess -5 L FiO2 40 Sodium 129 L Potassium 4.7 Chloride 95 L Carbon Dioxide 21.0 Anion Gap 13 BUN 63 H Creatinine 4.3 H* Estim Creat Clear Calc 27.9 L eGFR 15 L BUN/Creatinine Ratio 15 Glucose 218 H D Calculated Osmolality 283 Lactic Acid Calcium 7.4 L Corrected Calcium 8.1 L Phosphorus 4.6 Magnesium Total Bilirubin AST ALT Alkaline Phosphatase Troponin I Total Protein Albumin 3.1 L Globulin Albumin/Globulin Ratio Beta-Hydroxybutyrate/Acetoacetate Vancomycin Trough 11.8 H Coccidioides IgG Ab ABG Interpretation ABG results: 08/10/24 08/10/24 08/10/24 11:34 13:55 16:46 ABG pH 7.21 L 6.97 L* D 6.99 L* ABG pCO2 49 H 95 H* D 78 H* D ABG pO2 60 L 64 L 41 L* D ABG HCO3 20 22 19 L ABG O2 Saturation 86 L 80 L 58 L ABG Base Excess -8 L -12 L -14 L VBG pH VBG pCO2 VBG pO2 VBG Base Excess 08/10/24 08/10/24 08/10/24 19:28 20:48 21:13 ABG pH 7.01 L* Cancelled 7.08 L* ABG pCO2 75 H* Cancelled 69 H ABG pO2 47 L* Cancelled 61 L ABG HCO3 19 L Cancelled 20 ABG O2 Saturation 72 L Cancelled 87 L ABG Base Excess -13 L Cancelled -11 L VBG pH VBG pCO2 VBG pO2 VBG Base Excess 08/11/24 08/11/24 08/11/24 00:34 04:08 14:56 ABG pH 7.14 L* 7.16 L* 7.17 L* ABG pCO2 60 H 54 H 50 H ABG pO2 83 D 114 H D 72 L D ABG HCO3 20 19 L 18 L ABG O2 Saturation 96 99 H 93 ABG Base Excess -10 L -10 L -10 L VBG pH VBG pCO2 VBG pO2 VBG Base Excess 08/11/24 08/11/24 08/12/24 20:05 23:14 02:06 ABG pH 7.20 L 7.25 L 7.27 L ABG pCO2 55 H 49 H 50 H ABG pO2 82 L 93 90 ABG HCO3 21 22 23 ABG O2 Saturation 96 98 98 ABG Base Excess -7 L -6 L -4 L VBG pH VBG pCO2 VBG pO2 VBG Base Excess 08/12/24 08/12/24 08/12/24 06:30 10:13 10:45 ABG pH 7.34 L 7.31 L ABG pCO2 41 42 ABG pO2 177 H D 134 H D ABG HCO3 22 21 ABG O2 Saturation 100 H 100 H ABG Base Excess -4 L -5 L VBG pH 7.30 L VBG pCO2 43 VBG pO2 53 VBG Base Excess -5 L Quality Measures Quality Measures none Assessment & Plan Assessment Current Active Medications: Generic Name Dose Route Start Last Admin Trade Name Freq PRN Reason Stop Dose Admin Acetaminophen 650 mg 08/11/24 08:37 Acetaminophen 325 Mg Tablet PO 09/10/24 05:56 Q6HR PRN FEVER >101 Albuterol/Ipratropium 3 ml 08/09/24 19:00 08/12/24 12:12 Albuterol/Ipratropium (Duoneb) Rt Aspen 3 Ml Nebu INH 09/08/24 18:59 3 ml Q6HRRT ASHWIN Administration Aspirin 81 mg 08/11/24 09:00 08/12/24 08:00 Aspirin Ec 81 Mg Tabec PO 09/10/24 08:59 81 mg QDAY ASHWIN Administration Rosuvastatin 20 Mg 0 ea 08/09/24 21:00 08/11/24 22:09 PO 09/08/24 20:59 1 tablet HS ASHWIN Administration Dextrose 25 ml 08/09/24 15:31 Dextrose 50%-Water Inj 50 Ml Syringe IV 09/08/24 15:30 Q15MIN PRN BG 50-70 responsive npo pt Dextrose 50 ml 08/09/24 15:31 08/12/24 04:24 Dextrose 50%-Water Inj 50 Ml Syringe IV 09/08/24 15:30 50 ml Q15MIN PRN Administration BG <50 OR BG <70 & pt unresponsive Furosemide 40 mg 08/10/24 21:00 08/11/24 08:17 Furosemide Inj 10 Mg/Ml 4ml Vial IVP 09/09/24 20:59 40 mg BID ASHWIN Administration Glucagon 1 mg 08/09/24 15:31 Glucagon Inj 1 Mg Vial IM Q15MIN PRN BG <70, and no IV access Heparin Sodium (Porcine) 12,900 unit 08/12/24 11:03 Heparin Sod Inj 5000 Unit/Ml Vial 80 unit/kg (58177 unit) 08/12/24 11:04 IV X1 ONE Protocol Fentanyl Citrate 2,500 mcg in 250 mls @ 2.5 mls/hr 08/10/24 14:20 08/12/24 12:00 Sublimaze Inj 2,500 Mcg/250 Ml Bag IV 08/15/24 14:19 275 mcg/hr .Q24H PRN 27.5 mls/hr PER PROTOCOL Titration Protocol 25 MCG/HR Vasopressin/Sodium Chloride 20 unit in 100 mls @ 9 mls/hr 08/10/24 14:53 08/12/24 10:12 Vasostrict/Ns Ivpb IV 09/09/24 14:52 0.03 unit/min .Q11H7M PRN 9 mls/hr PER PROTOCOL Administration Protocol 0.03 UNIT/MIN Norepinephrine/Dextrose 8 mg in 250 mls @ 14.738 mls/hr 08/10/24 15:30 08/12/24 12:00 Levophed In D5w 8mg/250ml IV 09/09/24 15:29 0.05 mcg/kg/min .[id number] PRN 14.738 mls/hr PER PROTOCOL Titration Protocol 0.05 MCG/KG/MIN Linezolid 600 mg in 300 mls @ 300 mls/hr 08/11/24 10:53 08/12/24 08:00 Zyvox Ivpb IV 08/18/24 10:52 300 mls/hr Q12HR ASHWIN Administration Piperacillin/Tazobactam/Dextrose 50 mls @ 12.5 mls/hr 08/12/24 06:00 08/12/24 05:54 Zosyn IV 08/19/24 05:59 12.5 mls/hr Q8HR ASHWIN Administration Amiodarone HCl/Dextrose 360 mg in 200 mls @ 16.667 mls/hr 08/12/24 10:10 08/12/24 10:23 Nexterone Ivpb IV 08/13/24 10:09 16.667 mls/hr .Q12H ASHWIN Administration Phenylephrine HCl 40 mg/ 100 mls @ 12.083 mls/hr 08/12/24 09:35 08/12/24 12:00 Sodium Chloride IV 09/11/24 09:34 0.5 mcg/kg/min .Q8H17M PRN 12.083 mls/hr Per Sepsis Protocol Titration Protocol 0.5 MCG/KG/MIN Heparin Sodium/Dextrose 25,000 unit in 250 mls @ 17.721 mls/hr 08/12/24 11:15 Heparin In D5w Ivpb IV 08/26/24 11:14 .Q14H7M ASHWIN Protocol 11 UNITS/KG/HR Insulin Glargine 15 unit 08/12/24 09:30 08/12/24 09:55 Insulin Glargine (Lantus) 5 Unit/0.05 Ml (Per 5 Units) SC 09/11/24 09:29 15 unit QDAY ASHWIN Administration Insulin Human Lispro 0 unit 08/12/24 10:00 08/12/24 09:55 Insulin Lispro (Admelog) 1 Unit/0.01 Ml Unit SC 09/11/24 09:59 2 unit Q4HR ASHWIN Administration Protocol Mirtazapine 45 mg 08/09/24 21:00 08/10/24 21:28 Mirtazapine 15 Mg Tablet PO 09/08/24 20:59 45 mg HS ASHWIN Administration Ondansetron HCl 4 mg 08/09/24 15:20 Ondansetron Inj 2 Mg/Ml Inj 2 Ml IV 09/08/24 15:19 Q6H PRN NAUSEA OR VOMITING Protocol Oseltamivir Phosphate 30 mg 08/12/24 09:00 08/12/24 10:24 Oseltamivir 30 Mg Capsule PO 08/14/24 09:01 30 mg BID ASHWIN Administration Pantoprazole Sodium 40 mg 08/09/24 15:30 08/12/24 08:00 Pantoprazole Inj 40 Mg Vial IVP 09/08/24 15:29 40 mg QDAY ASHWIN Administration Paroxetine HCl 40 mg 08/09/24 21:00 08/10/24 21:29 Paroxetine Hcl 10 Mg Tablet PO 09/08/24 20:59 40 mg HS ASHWIN Administration Pharmacy Consult 1 each 08/11/24 20:59 Pharmacy Renal Dose Adjustment 1 Ea XX 09/10/24 20:58 PRN PRN CONSULT Risperidone 6 mg 08/09/24 21:00 08/10/24 21:29 Risperidone 1 Mg Tablet PO 09/08/24 20:59 6 mg HS ASHWIN Administration Tamsulosin HCl 0.4 mg 08/09/24 16:00 08/12/24 08:00 Tamsulosin Hcl 0.4 Mg Capsule PO 09/08/24 15:59 0.4 mg QDAY ASHWIN Administration Topiramate 50 mg 08/09/24 21:00 08/11/24 22:09 Topiramate 25 Mg Tablet PO 09/08/24 20:59 50 mg HS ASHWIN Administration Plan Assessment and Plan Summary: Mr. Bella is a 64-year-old male with past medical history of hypertension, hyperlipidemia, coronary artery disease, type diabetes mellitus insulin-dependent, CHF, atrial fibrillation, history of seizures who was admitted to [facility] for management of CHF exacerbation and influenza A. Patient upgraded to ICU after emergent intubation post worsening of mentation and bedside aspiration with inability to protect airway. Neurological #Acute metabolic encephalopathy Differential diagnosis: Secondary to acute hypoxic/hypercapnic respiratory failure, underlying acidosis, underlying sepsis, polypharmacy Diagnostic workup: Patient had altered mental status, unable to protect airway, ABG pH 6.97, pCO2 95, pO2 64 Home medication includes risperidone 6 mg at bedtime, mirtazapine 45 mg at bedtime, and paroxetine 40 mg at bedtime for depression Treatment: -Patient intubated started on mechanical ventilation -Correct underlying acidosis -Continue IV antibiotics -Will hold risperidone, mirtazapine and paroxetine -Minimize Sedation Follow-up: -Follow-up ABGs in AM -Optimize mechanical ventilator settings -Will treat underlying etiology #History of seizures Patient has a past medical history of seizures, last seizure was several years ago and patient cannot recall but has been stable. Home medication topiramate 50 mg HS. Differential diagnosis: Low suspicion of seizure, no seizure-like activity noted Diagnostic workup: Will monitor for seizures/seizure-like activity Treatment: -Continue topiramate 50 mg at bedtime Cardiology #Shock Differential diagnosis: Distributive (septic shock due to aspiration pneumonia) ruled out obstructive shock (pulmonary embolism) and cardiogenic shock Diagnostic workup: Chest CTA significant for bilateral pneumonia and ARDS, ruled out PE Patient is influenza A positive, significant aspiration noted bedside, suspicion of underlying aspiration pneumonia Chest x-ray significant for interval severe bilateral pneumonia Patient does have history of coronary artery disease, EKG showed no ST elevation, mild troponin elevation noted, Bedside echo shows good contractility, noted on cardiac Elevated Pro-Donte to 211.93 Treatment: -Started on vasopressin and levophed, maintain MAP more than 65 -Patient on Tamiflu, will continue (08/09- -Continue Zosyn, azithromycin, (08/10- linezolid (08/11- -Discontinued vancomycin (08/10-08/11) Follow-up: -Follow lactate levels in AM #Congestive heart failure, HFpEF EF 55 to 60% # Mild aortic stenosis, mitral stenosis Differential diagnosis: Systolic versus diastolic heart failure Diagnostic workup: Patient complained of dyspnea at baseline, orthopnea on admission, 2+ leg edema bilaterally just below the knees, BNP 275 Repeat 618 Patient on Lasix at home, last ejection fraction unknown, echo done during this hospitalization Echo significant for Normal LV size and function. Mild LVH. Estimated EF 55-60%. Cannot determine diastolic function due to AFib. Mildly dilated RV and normal RV function. Could not visualize TR or tricuspid valve well. Unable to estimate RVSP and PAH. All valves poorly visualized. Mild AV stenosis, max gradient 33mmHg, vmax 2.8m/s. Mild AI and Mild AI IVC dilated Treatment: -Patient received 80 mg Lasix BID (08/10), patient was given Bumex 2 mg x 1 -No urine output noted with Bumex, will schedule for dialysis -Consulted cardiology, appreciate recommendations Follow-up: -Monitor urine output -Follow postdialysis output #Atrial fibrillation with rapid ventricular response Differential diagnosis: Patient has history of A-fib currently with RVR Diagnostic workup: EKG shows atrial fibrillation, irregular rate noted on telemetry at bedside Treatment: -Started on IV amiodarone -Started on heparin drip -Will consider digoxin for rate control if needed Follow-up: -Telemonitoring #Demand Ischemia Differential diagnosis: Demand Ischemia, NSTEMI type 1 ruled out Diagnostic workup: EKG negative for ST elevation Serial troponins noted to be elevated Troponins mildly elevated, troponin peak at 0.517, repeat EKG negative Treatment/Follow-up: -Will consider EKG, continue survey rodman #Hypertension #Hyperlipidemia #History of coronary artery disease Has a past medical history of hyperlipidemia with a previous history of OH approximately 5 years ago. Patient takes rosuvastatin 40 mg at bedtime. Patient has a past medical history of hypertension on losartan. Patient started on amlodipine 5 mg due to ARIANA during this hospitalization, will hold in setting of shock. Pulmonary #Acute hypoxic/hypercapnic respiratory failure secondary to #Influenza A #Aspiration pneumonia #COPD Differential diagnosis: Aspiration pneumonia, Influenza A, less likely COPD exacerbation, pulmonary embolism, pulmonary edema Diagnostic workup: Bedside influenza A positive, active aspiration event noted Worsening of chest x-ray noted CTA significant for bilateral pneumonia and ARDS pattern Patient has history of COPD, about 40 pack years Treatment: -DuoNeb every 6 hours -Patient on Tamiflu, will continue (08/09- -Continue Zosyn, azithromycin, (08/10- linezolid (08/11- -Discontinued vancomycin (08/10-08/11) -Patient on mechanical ventilation Follow-up: -Optimize mechanical ventilator settings -Follow blood gas -Follow sputum culture Gastrointestinal # Hepatitis 2/2 shock liver Differential diagnosis: Shock liver, low suspicion of venous congestion or fluid Diagnostic workup: AST 553, ALT 254, significant rise in LFTs noted Treatment: Will treat underlying cause Follow-up: Follow LFTs in AM Renal/Genitourinary #Acute kidney injury, likely secondary to ATN Differential diagnosis: Prerenal versus ATN in setting of ischemia Diagnostic workup: Elevated creatinine 1.6 on admission likely reflecting an ARIANA. Baseline unknown. Patient was not given fluids in setting of possible CHF exacerbation Treatment: -Patient scheduled for dialysis today -Will monitor renal function -Consulted pharmacy to dose medications renally -Avoid nephrotoxic agents Follow-up: -Follow renal panel in a.m. Endocrine #Type 2 diabetes mellitus, insulin-dependent # Hyperglycemia Patient has a past medical history of diabetes mellitus type 2 Home medication include Lantus 12 units, Januvia (Sitagliptin), Jardiance (Empagliflozin), and Ozempic. Patient stated he has lost about 120 lbs. Diagnostic workup: Hemoglobin A1c 7.1 Treatment: -Discontinued insulin GGT -Started on Lantus 15 units daily, sliding scale lispro Follow-up: -Monitor fingerstick blood glucose every 6 hours Hematology #Leukocytosis Possibly due to underlying sepsis Infectious Disease #Influenza A #Pneumonia -See respiratory system for details Integumentary #Bilateral venous stasis Differential diagnosis: Chronic venous insufficiency Treatment: Wound care as needed DVT prophylaxis: Heparin GI prophylaxis: Protonix Diet: N.p.o. Lines: Peripheral IV, right IJ central line, right circumflex A-line, left femoral Vas-Cath Code status: Full code Catheter: Branham catheter, inserted 08/10, discontinued today Case discussed with Attending Dr. Murry and Dr. Dotson PGY3. Ju Saez PGY1 Disclaimer: This note was dictated by speech recognition. Minor errors in transcription coordinator may be present due to voice recognition software.
[2024-08-12 13:44] LABS: INR 1.4 (0.9-1.3); Partial Thromboplastin Time 45.6 Seconds (22.0-36.0)
[2024-08-12 14:14] LABS: Base Excess -5 (-3-3); HCO3 21 mEq/L (20-26); Inspired Oxygen, FIO2 40 %; O2 Saturation 99 % (91-98); PCO2 40 mmHg (32.0-48.0); PO2 114 mmHg (83-108); pH, Arterial 7.33 (7.35-7.45)
[2024-08-12 14:15] LABS: Puncture Site Arterial Line
[2024-08-12 14:16] LABS: Allen Test Not Performed
[2024-08-12] MEDS: Heparin/D5w 25K 250 ML Ivpb 25,000 UNIT/250 ML BAG 17.721 UNIT IV (14:33)
[2024-08-12] MEDS: HEPARIN SOD INJ 5000 UNIT/ML VIAL 4000 UNIT IV (14:34)
--- NOTE | 2024-08-12 15:39 | PC.SS ---
Update: Patient remains intubated/sedated. OG tube in place. Feedings to begin today. Patient remains on pressor support. Dialysis provided to the patient today. 1st dialysis session today.
[2024-08-12] MEDS: EPOETIN ALFA-EPBX INJ 10,000 UNIT/ML VIAL (ESRD) 10000 UNIT SC (17:20)
[2024-08-12] MEDS: HEPARIN SOD INJ 1000 UNIT/ML VIAL 10 ML 3000 UNIT INDWELLCAT (19:16)
[2024-08-12 20:19] LABS: Base Excess -3 (-3-3); HCO3 23 mEq/L (20-26); Inspired Oxygen, FIO2 35 %; O2 Saturation 99 % (91-98); PCO2 41 mmHg (32.0-48.0); PO2 103 mmHg (83-108); pH, Arterial 7.35 (7.35-7.45)
[2024-08-12 20:25] LABS: Allen Test Not Performed; Puncture Site Right Brachial
[2024-08-12 21:37] LABS: Partial Thromboplastin Time 97.6 Seconds (22.0-36.0)
[2024-08-12] MEDS: TOPIRAMATE 25 MG TABLET 50 MG PO (21:44)
[2024-08-12] MEDS: ROSUVASTATIN 20 MG PO (21:45)
[2024-08-12 22:20] LABS: Hepatitis A Antibody IgM Non Reactive (Non React); Hepatitis B Core Antibody IgM Non Reactive (Non React); Hepatitis B Surface Ab NonReact(Not Immune) (Immune); Hepatitis B Surface Antigen Non Reactive (Non React); Hepatitis C Antibody Non Reactive (Non React)
[2024-08-13] VITALS (115 sets, daily range): BP systolic 72–145; BP diastolic 43–102; PULSE 84–144; RESP 4–32; TEMP 36.3–37.8; O2SAT 88–100; BMI 45.6
[2024-08-13] MEDS: ALBUTEROL/IPRATROPIUM (Duoneb) RT SOL 3 ML NEBU INH ×3 (00:43→13:33)
[2024-08-13] MEDS: fentaNYL 2,500 MCG/250 ML BAG 2,500 MCG/250 ML BAG 27.5 MCG IV (02:23)
[2024-08-13] MEDS: INSULIN LISPRO (AdmeLOG) 1 UNIT/0.01 ML UNIT SC ×4 (02:30→14:44)
--- NOTE | 2024-08-13 04:04 | PC.RT ---
1-16-25 before 2199 Q4 ABG drawl, doctor marciano gave me verbal order to discontinue the Q4 ABG,s.
[2024-08-13 04:33] LABS: Base Excess -4 (-3-3); HCO3 22 mEq/L (20-26); Inspired Oxygen, FIO2 28 %; O2 Saturation 98 % (91-98); PCO2 40 mmHg (32.0-48.0); PO2 95 mmHg (83-108); pH, Arterial 7.35 (7.35-7.45)
[2024-08-13 04:34] LABS: Allen Test Not Performed; Puncture Site Arterial Line
--- NOTE | 2024-08-13 05:00 | XR_ITS ---
Examination: AP chest single view TECHNIQUE: AP portable semiupright chest single view Exam date and time: August 13, 2024 0414 hours Comparison August 12, 2024 INDICATIONS: Hypoxic respiratory failure this week, severe bilateral pneumonia ARDS pattern postintubation FINDINGS: Again noted extensive bilateral lung opacity, slightly improved although this may relate to more penetrated technique Mild prominence left ventricle Orogastric tube in the stomach, the tip is below the level film Endotracheal tube tip 4.5 cm above ioana Right internal jugular central line tip SVC IMPRESSION: Extensive bilateral pneumonia ARDS, slight improvement compared with August 12, 2024
[2024-08-13] MEDS: PIPER/TAZO 3.375 GM 50 ML IV (05:47)
[2024-08-13 06:05] LABS: Basophils % (Auto) 0 % (0-2.5); Eosinophils % (Auto) 0 % (0-10); Hematocrit 30.6 % (41.0-53.0); Hemoglobin 10.5 g/dL (13.5-16.0); Immature Granulocytes % (Auto) 1 % (0-0); Immature Granulocytes Auto 0.11 Thou/mm3 (0.00-0.00); Lymphocytes # (Auto) 1.1 Thou/mm3 (1.0-4.8); Lymphocytes % (Auto) 8 % (10-50); Mean Corpuscular HGB Conc 34.3 g/dl (31.0-37.0); Mean Corpuscular Hemoglobin 27.8 pg (25.0-35.0); Mean Corpuscular Volume 81 fL (80-100); Monocytes # (Auto) 0.5 Thou/mm3 (0.0-0.8); Monocytes % (Auto) 4 % (0-12); Neutrophils # (Auto) 12.2 Thou/mm3 (1.8-7.7); Neutrophils % (Auto) 88 % (37-80); Nucleated Red Blood Cell # 0.02 Thou/mm3 (0.00-0.00); Nucleated Red Blood Cell % 0 /100 WBC (0); Platelet Count 177 Thou/mm3 (140-440); RDW Standard Deviation 42.9 fL (35.1-43.9); Red Blood Count 3.78 Miln/mm3 (4.50-5.90); White Blood Count 13.9 Thou/mm3 (3.8-10.6)
[2024-08-13 06:24] LABS: INR 1.1 (0.9-1.3); Partial Thromboplastin Time 97.1 Seconds (22.0-36.0); Prothrombin Time 12.3 Seconds (9.0-12.2)
[2024-08-13] MEDS: Heparin/D5w 25K 250 ML Ivpb 25,000 UNIT/250 ML BAG 11.277 UNIT IV (06:27)
[2024-08-13 06:37] LABS: Alanine Aminotransferase 597 U/L (10-49); Albumin, Serum 3.4 gm/dL (3.4-4.8); Albumin/Globulin Ratio 1.4 (1.2-2.2); Alkaline Phosphatase 35 U/L (46-116); Anion Gap 14 (7-16); Aspartate Amino Transferase 688 U/L (0-34); BUN/Creatinine Ratio 16 Ratio (12-20); Blood Urea Nitrogen 66 mg/dL (9-23); Calcium 7.7 mg/dL (8.3-10.6); Calcium (Corrected) 8.2 mg/dL (8.5-10.1); Carbon Dioxide 21.3 mMol/L (20.0-31.0); Chloride 94 mMol/L (98-107); Creatinine (Component) 4.2 mg/dL (0.6-1.3); Estimated Creatinine Clearance 28.6 mL/min (>60); Globulin 2.4 gm/dL (2.3-3.5); Glucose 244 mg/dL (74-106); Magnesium 2.1 mg/dL (1.6-2.6); Osmolality,Calculated 285 (275-295); Phosphorous 4.3 mg/dL (2.4-5.1); Sodium 129 mMol/L (136-145); Total Protein 5.8 gm/dL (5.7-8.2); eGFR 15 See Note
[2024-08-13] MEDS: OSELTAMIVIR 30 MG CAPSULE PO (08:52)
[2024-08-13] MEDS: TAMSULOSIN HCL 0.4 MG CAPSULE PO (08:52)
[2024-08-13] MEDS: LINEZOLID 600 MG IVPB 600 MG/300 ML BAG 300 MG IV (08:52)
[2024-08-13] MEDS: ASPIRIN EC 81 MG TABEC PO (08:52)
[2024-08-13] MEDS: PANTOPRAZOLE INJ 40 MG VIAL IVP (08:52)
--- NOTE | 2024-08-13 08:58 | PD.RESPRO ---
Documentation for date of: 08/13/24 Subjective Subjective Interval history: Andrew Bella is a 64-year-old male with a past medical history of hypertension, hyperlipidemia, CAD, insulin-dependent type 2 diabetes mellitus, CHF, A-fib, depression, and history of seizures who recently moved from [place] and initially presented to ED on 08/09 with dyspnea and productive cough with associated pleuritic chest pain, cough, wheezing, and weakness. Also noted to have bilateral lower extremity edema and orthopnea, but denied paroxysmal nocturnal dyspnea. In ED, vitals significant for temperature of 100.8 ?F and on room air. Labs showed BUN 29, 1.6, GFR 48, glucose 228, LDH 256, BNP 275, UA 4+ glucose, U tox negative. Influenza A positive. Patient subsequently started on Tamiflu as well as Lasix for possible CHF exacerbation. Throughout hospital course, on 08/10 patient has had 2 rapid responses very well for desaturation requiring BiPAP and IV steroids/antibiotics and the second for hypoxia with altered mentation, requiring intubation for airway protection prompting transfer to ICU for further care. Around time of intubation, ABG showed pH 6.97, pCO2 97. MAP noted to drop below 65 and was started on Levophed and vasopressin. Cardiology consulted for further evaluation of possible CHF exacerbation and A-fib. Although unable to determine baseline renal function, creatinine increased from 1.8 to 2.9 overnight and so nephrology was consulted. Given that patient is intubated, history obtained from chart review. 08/11: Patient seen and examined in ICU, intubated and undergoing cooling measures for fever of 103.1 ?F. Creatinine noted to jump from 1.8 to 2.9 overnight. Suspect acute tubular necrosis in setting of hypotension with MAP less than 65 mmHg noted on 08/10. Also associated increase in lactic acid from 2.2 to 4.6 as well as overnight increase in LFTs (AST 17 to 553 and AST from 10 to 54). Will follow-up on urine studies as well as renal ultrasound. 08/12: Patient seen and examined in ICU, intubated and ventilated. Labs and orders reviewed. Na 129, BUN 67, Cr steadily increasing to 4.0, Ca 8.2. LFTs remain elevated (AST 423, ALT 364). Produced less than 20 cc of urine overnight. Still pending urine studies. Vancomycin changed to linezolid, continuing azithromycin and Zosyn. CTA chest: Bilateral pneumonia with arts pattern. Repeat CXR showed worsening of pneumonia and ARDS. DC'd IV steroids and amlodipine. Vas-Cath placed for hemodialysis. 08/13: Patient seen and examined in ICU, inbutaed and ventilated. Labs and orderse reviewed. Na stable at 129, BUN 66 and Cr again increased from 4.0 to 4.2. LFTs continue to uptrend (AST 688, ALT 597). Patient was given bumex x1 yesterday but had minimal urine output and so he underwent a session of dialysis for two hours with plans for hemodialysis again today. Exam Vital Signs Temp Pulse Resp BP Pulse Ox O2 Del Method O2 Flow Rate 98.0 F 123 H 30 H 117/76 99 Mechanical Ventilation 15 08/13/24 08:00 08/13/24 08:15 08/13/24 06:42 08/13/24 08:15 08/13/24 07:45 08/10/24 19:30 08/10/24 11:39 FiO2 28 08/13/24 08:00 Narrative Exam General: alert, intubated, mechanically ventilated HEENT: NC/AT, mucous membranes moist, bilateral sclera anicteric Cardiovascular: tachycardic, S1/S2 present, no murmurs appreciated Pulmonary: crackles auscultated bilaterally (R > L) Abdominal: soft, non-tender, non-distended, no rebound/guarding, normal bowel sounds present Musculoskeletal: venous stasis changes noted, non-pitting lower extremity edema Objective Labs 08/14/24 04:18 08/14/24 18:18 Labs: Laboratory Results - last 24 hr 08/12/24 08/12/24 08/12/24 07:32 09:10 10:13 WBC RBC Hgb Hct MCV MCH MCHC RDW Std Deviation Plt Count Neut % (Auto) Lymph % (Auto) Josephine % (Auto) Eos % (Auto) Baso % (Auto) Neut # (Auto) Lymph # (Auto) Josephine # (Auto) Eos # (Auto) Baso # (Auto) Immature Gran # (Auto) Absolute Nucleated RBC Immature Gran % Nucleated RBC % PT INR APTT Puncture Site Arterial Line ABG pH 7.31 L ABG pCO2 42 ABG pO2 134 H D ABG HCO3 21 ABG O2 Saturation 100 H ABG Base Excess -5 L VBG pH VBG pCO2 VBG pO2 VBG O2 Sat (Chuy) VBG Base Excess FiO2 40 Sodium 129 L Potassium 4.6 D Chloride 94 L Carbon Dioxide 22.4 Anion Gap 13 BUN 67 H Creatinine 4.0 H Estim Creat Clear Calc 30.0 L eGFR 16 L BUN/Creatinine Ratio 17 Glucose 164 H D Calculated Osmolality 282 Calcium 7.7 L Corrected Calcium 8.2 L Phosphorus 4.6 Magnesium Total Bilirubin AST ALT Alkaline Phosphatase Total Protein Albumin 3.4 Globulin Albumin/Globulin Ratio Vancomycin Trough 11.8 H Hepatitis A IgM Ab Hep Bs Antigen Hep Bs Antibody Hep B Core IgM Ab Hepatitis C Antibody 08/12/24 08/12/24 08/12/24 10:45 13:14 14:10 WBC RBC Hgb Hct MCV MCH MCHC RDW Std Deviation Plt Count Neut % (Auto) Lymph % (Auto) Josephine % (Auto) Eos % (Auto) Baso % (Auto) Neut # (Auto) Lymph # (Auto) Josephine # (Auto) Eos # (Auto) Baso # (Auto) Immature Gran # (Auto) Absolute Nucleated RBC Immature Gran % Nucleated RBC % PT 15.0 H D INR 1.4 H APTT 45.6 H Puncture Site Arterial Line ABG pH 7.33 L ABG pCO2 40 ABG pO2 114 H D ABG HCO3 21 ABG O2 Saturation 99 H ABG Base Excess -5 L VBG pH 7.30 L VBG pCO2 43 VBG pO2 53 VBG O2 Sat (Chuy) 87 L VBG Base Excess -5 L FiO2 40 Sodium 129 L Potassium 4.7 Chloride 95 L Carbon Dioxide 21.0 Anion Gap 13 BUN 63 H Creatinine 4.3 H* Estim Creat Clear Calc 27.9 L eGFR 15 L BUN/Creatinine Ratio 15 Glucose 218 H D Calculated Osmolality 283 Calcium 7.4 L Corrected Calcium 8.1 L Phosphorus 4.6 Magnesium Total Bilirubin AST ALT Alkaline Phosphatase Total Protein Albumin 3.1 L Globulin Albumin/Globulin Ratio Vancomycin Trough Hepatitis A IgM Ab Non Reactive Hep Bs Antigen Non Reactive Hep Bs Antibody NonReact(Not Immune) L Hep B Core IgM Ab Non Reactive Hepatitis C Antibody Non Reactive 08/12/24 08/12/24 08/13/24 19:57 20:15 04:27 WBC RBC Hgb Hct MCV MCH MCHC RDW Std Deviation Plt Count Neut % (Auto) Lymph % (Auto) Josephine % (Auto) Eos % (Auto) Baso % (Auto) Neut # (Auto) Lymph # (Auto) Josephine # (Auto) Eos # (Auto) Baso # (Auto) Immature Gran # (Auto) Absolute Nucleated RBC Immature Gran % Nucleated RBC % PT INR APTT 97.6 H D Puncture Site Right Brachial Arterial Line ABG pH 7.35 7.35 ABG pCO2 41 40 ABG pO2 103 95 ABG HCO3 23 22 ABG O2 Saturation 99 H 98 ABG Base Excess -3 -4 L VBG pH VBG pCO2 VBG pO2 VBG O2 Sat (Chuy) VBG Base Excess FiO2 35 28 Sodium Potassium Chloride Carbon Dioxide Anion Gap BUN Creatinine Estim Creat Clear Calc eGFR BUN/Creatinine Ratio Glucose Calculated Osmolality Calcium Corrected Calcium Phosphorus Magnesium Total Bilirubin AST ALT Alkaline Phosphatase Total Protein Albumin Globulin Albumin/Globulin Ratio Vancomycin Trough Hepatitis A IgM Ab Hep Bs Antigen Hep Bs Antibody Hep B Core IgM Ab Hepatitis C Antibody 08/13/24 05:00 WBC 13.9 H RBC 3.78 L Hgb 10.5 L Hct 30.6 L MCV 81 MCH 27.8 MCHC 34.3 RDW Std Deviation 42.9 Plt Count 177 D Neut % (Auto) 88 H Lymph % (Auto) 8 L Josephine % (Auto) 4 Eos % (Auto) 0 Baso % (Auto) 0 Neut # (Auto) 12.2 H Lymph # (Auto) 1.1 Josephine # (Auto) 0.5 Eos # (Auto) 0.0 Baso # (Auto) 0.0 Immature Gran # (Auto) 0.11 H Absolute Nucleated RBC 0.02 H Immature Gran % 1 H Nucleated RBC % 0 PT 12.3 H INR 1.1 APTT 97.1 H Puncture Site ABG pH ABG pCO2 ABG pO2 ABG HCO3 ABG O2 Saturation ABG Base Excess VBG pH VBG pCO2 VBG pO2 VBG O2 Sat (Chuy) VBG Base Excess FiO2 Sodium 129 L Potassium 4.0 D Chloride 94 L Carbon Dioxide 21.3 Anion Gap 14 BUN 66 H Creatinine 4.2 H* Estim Creat Clear Calc 28.6 L eGFR 15 L BUN/Creatinine Ratio 16 Glucose 244 H Calculated Osmolality 285 Calcium 7.7 L Corrected Calcium 8.2 L Phosphorus 4.3 Magnesium 2.1 Total Bilirubin 2.0 H AST 688 H* ALT 597 H* Alkaline Phosphatase 35 L D Total Protein 5.8 Albumin 3.4 Globulin 2.4 Albumin/Globulin Ratio 1.4 Vancomycin Trough Hepatitis A IgM Ab Hep Bs Antigen Hep Bs Antibody Hep B Core IgM Ab Hepatitis C Antibody ABG Interpretation ABG results: 08/10/24 08/10/24 08/10/24 11:34 13:55 16:46 ABG pH 7.21 L 6.97 L* D 6.99 L* ABG pCO2 49 H 95 H* D 78 H* D ABG pO2 60 L 64 L 41 L* D ABG HCO3 20 22 19 L ABG O2 Saturation 86 L 80 L 58 L ABG Base Excess -8 L -12 L -14 L VBG pH VBG pCO2 VBG pO2 VBG Base Excess 08/10/24 08/10/24 08/10/24 19:28 20:48 21:13 ABG pH 7.01 L* Cancelled 7.08 L* ABG pCO2 75 H* Cancelled 69 H ABG pO2 47 L* Cancelled 61 L ABG HCO3 19 L Cancelled 20 ABG O2 Saturation 72 L Cancelled 87 L ABG Base Excess -13 L Cancelled -11 L VBG pH VBG pCO2 VBG pO2 VBG Base Excess 08/11/24 08/11/24 08/11/24 00:34 04:08 14:56 ABG pH 7.14 L* 7.16 L* 7.17 L* ABG pCO2 60 H 54 H 50 H ABG pO2 83 D 114 H D 72 L D ABG HCO3 20 19 L 18 L ABG O2 Saturation 96 99 H 93 ABG Base Excess -10 L -10 L -10 L VBG pH VBG pCO2 VBG pO2 VBG Base Excess 08/11/24 08/11/24 08/12/24 20:05 23:14 02:06 ABG pH 7.20 L 7.25 L 7.27 L ABG pCO2 55 H 49 H 50 H ABG pO2 82 L 93 90 ABG HCO3 21 22 23 ABG O2 Saturation 96 98 98 ABG Base Excess -7 L -6 L -4 L VBG pH VBG pCO2 VBG pO2 VBG Base Excess 08/12/24 08/12/24 08/12/24 06:30 10:13 10:45 ABG pH 7.34 L 7.31 L ABG pCO2 41 42 ABG pO2 177 H D 134 H D ABG HCO3 22 21 ABG O2 Saturation 100 H 100 H ABG Base Excess -4 L -5 L VBG pH 7.30 L VBG pCO2 43 VBG pO2 53 VBG Base Excess -5 L 08/12/24 08/12/24 08/13/24 14:10 19:57 04:27 ABG pH 7.33 L 7.35 7.35 ABG pCO2 40 41 40 ABG pO2 114 H D 103 95 ABG HCO3 21 23 22 ABG O2 Saturation 99 H 99 H 98 ABG Base Excess -5 L -3 -4 L VBG pH VBG pCO2 VBG pO2 VBG Base Excess Quality Measures Quality Measures none Assessment & Plan Assessment Current Active Medications: Generic Name Dose Route Start Last Admin Trade Name Freq PRN Reason Stop Dose Admin Acetaminophen 650 mg 08/11/24 08:37 Acetaminophen 325 Mg Tablet PO 09/10/24 05:56 Q6HR PRN FEVER >101 Albuterol/Ipratropium 3 ml 08/09/24 19:00 08/13/24 06:40 Albuterol/Ipratropium (Duoneb) Rt Aspen 3 Ml Nebu INH 09/08/24 18:59 3 ml Q6HRRT ASHWIN Administration Aspirin 81 mg 08/11/24 09:00 08/13/24 08:52 Aspirin Ec 81 Mg Tabec PO 09/10/24 08:59 81 mg QDAY ASHWIN Administration Rosuvastatin 20 Mg 0 ea 08/09/24 21:00 08/12/24 21:45 PO 09/08/24 20:59 1 tablet HS ASHWIN Administration Dextrose 25 ml 08/09/24 15:31 Dextrose 50%-Water Inj 50 Ml Syringe IV 09/08/24 15:30 Q15MIN PRN BG 50-70 responsive npo pt Dextrose 50 ml 08/09/24 15:31 08/12/24 04:24 Dextrose 50%-Water Inj 50 Ml Syringe IV 09/08/24 15:30 50 ml Q15MIN PRN Administration BG <50 OR BG <70 & pt unresponsive Furosemide 40 mg 08/10/24 21:00 08/11/24 08:17 Furosemide Inj 10 Mg/Ml 4ml Vial IVP 09/09/24 20:59 40 mg BID ASHWIN Administration Glucagon 1 mg 08/09/24 15:31 Glucagon Inj 1 Mg Vial IM Q15MIN PRN BG <70, and no IV access Heparin Sodium (Porcine) 3,000 unit 08/12/24 15:11 08/12/24 19:16 Heparin Sod Inj 1000 Unit/Ml Vial 10 Ml INDWELLCAT 08/26/24 15:10 3,000 unit PRN PRN Administration DIALYSIS Fentanyl Citrate 2,500 mcg in 250 mls @ 2.5 mls/hr 08/10/24 14:20 08/13/24 06:00 Sublimaze Inj 2,500 Mcg/250 Ml Bag IV 08/15/24 14:19 275 mcg/hr .Q24H PRN 27.5 mls/hr PER PROTOCOL Titration Protocol 25 MCG/HR Vasopressin/Sodium Chloride 20 unit in 100 mls @ 9 mls/hr 08/10/24 14:53 08/12/24 19:14 Vasostrict/Ns Ivpb IV 09/09/24 14:52 0.03 unit/min .Q11H7M PRN 9 mls/hr PER PROTOCOL Administration Protocol 0.03 UNIT/MIN Norepinephrine/Dextrose 8 mg in 250 mls @ 14.738 mls/hr 08/10/24 15:30 08/13/24 05:45 Levophed In D5w 8mg/250ml IV 09/09/24 15:29 Infused .[id number] PRN Titration PER PROTOCOL Protocol 0.05 MCG/KG/MIN Linezolid 600 mg in 300 mls @ 300 mls/hr 08/11/24 10:53 08/13/24 08:52 Zyvox Ivpb IV 08/18/24 10:52 300 mls/hr Q12HR ASHWIN Administration Piperacillin/Tazobactam/Dextrose 50 mls @ 12.5 mls/hr 08/12/24 06:00 08/13/24 05:47 Zosyn IV 08/19/24 05:59 12.5 mls/hr Q8HR ASHWIN Administration Amiodarone HCl/Dextrose 360 mg in 200 mls @ 16.667 mls/hr 08/12/24 10:10 08/12/24 23:42 Nexterone Ivpb IV 08/13/24 10:09 16.667 mls/hr .Q12H ASHWIN Administration Phenylephrine HCl 40 mg/ 100 mls @ 12.083 mls/hr 08/12/24 09:35 08/13/24 04:30 Sodium Chloride IV 09/11/24 09:34 0 mcg/kg/min .Q8H17M PRN 0 mls/hr Per Sepsis Protocol Titration Protocol 0.5 MCG/KG/MIN Heparin Sodium/Dextrose 25,000 unit in 250 mls @ 17.721 mls/hr 08/12/24 14:30 08/13/24 06:27 Heparin In D5w Ivpb IV 08/26/24 14:29 7 units/kg/hr .Q14H7M ASHWIN 11.277 mls/hr Administration Protocol 11 UNITS/KG/HR Albumin Human 25 gm in 100 mls @ 100 mls/min 08/12/24 15:11 Albuminar-25 Ivpb IV PRN PRN DIALYSIS Insulin Glargine 15 unit 08/12/24 09:30 08/12/24 09:55 Insulin Glargine (Lantus) 5 Unit/0.05 Ml (Per 5 Units) SC 09/11/24 09:29 15 unit QDAY ASHWIN Administration Insulin Human Lispro 0 unit 08/13/24 07:46 Insulin Lispro (Admelog) 1 Unit/0.01 Ml Unit SC 09/11/24 09:59 Q4HR ASHWIN Protocol Mirtazapine 45 mg 08/09/24 21:00 08/10/24 21:28 Mirtazapine 15 Mg Tablet PO 09/08/24 20:59 45 mg HS ASHWIN Administration Ondansetron HCl 4 mg 08/09/24 15:20 Ondansetron Inj 2 Mg/Ml Inj 2 Ml IV 09/08/24 15:19 Q6H PRN NAUSEA OR VOMITING Protocol Oseltamivir Phosphate 30 mg 08/12/24 09:00 08/13/24 08:52 Oseltamivir 30 Mg Capsule PO 08/14/24 09:01 30 mg BID ASHWIN Administration Pantoprazole Sodium 40 mg 08/09/24 15:30 08/13/24 08:52 Pantoprazole Inj 40 Mg Vial IVP 09/08/24 15:29 40 mg QDAY ASHWIN Administration Paroxetine HCl 40 mg 08/09/24 21:00 08/10/24 21:29 Paroxetine Hcl 10 Mg Tablet PO 09/08/24 20:59 40 mg HS ASHWIN Administration Pharmacy Consult 1 each 08/11/24 20:59 Pharmacy Renal Dose Adjustment 1 Ea XX 02/14/25 20:58 PRN PRN CONSULT Risperidone 6 mg 08/09/24 21:00 08/10/24 21:29 Risperidone 1 Mg Tablet PO 09/08/24 20:59 6 mg HS ASHWIN Administration Tamsulosin HCl 0.4 mg 08/09/24 16:00 08/13/24 08:52 Tamsulosin Hcl 0.4 Mg Capsule PO 09/08/24 15:59 0.4 mg QDAY ASHWIN Administration Topiramate 50 mg 08/09/24 21:00 08/12/24 21:44 Topiramate 25 Mg Tablet PO 09/08/24 20:59 50 mg HS ASHWIN Administration Plan Andrew Bella is a 64-year-old male with a past medical history of hypertension, hyperlipidemia, CAD, insulin-dependent type 2 diabetes mellitus, CHF, A-fib, depression, and history of seizures who initially presented to ED on 08/09 with dyspnea and productive cough with associated pleuritic chest pain, admitted for management of influenza PNA vs CHF exacerbation. Upgraded on 08/10 for airway protection requiring intubation and nephrology consulted in setting of acute kidney injury with creatinine increase from 1.89 to 2.9. #Acute kidney injury #? Acute tubular necrosis Creatinine noted to jump from 1.8 to 2.9, prompting nephrology consult. Vasc-Cath placed for hemodialysis and patient underwent first session on 08/12 with second session on 08/13. Suspect acute tubular necrosis in setting of hypotension with MAP < 65 mmHg noted on 08/10 with associated increase in lactic acid from 2.2 to 4.6 as well as overnight increase in LFTs that continue to trend upward. Decreased urine output also supports ATN despite IV bumex x1 on 08/12. Renal US showed mild bilateral renal parenchymal scar formation without hydronephrosis. ? Underwent first dialysis session yesterday and planned for another session today ? If ATN, expect decreased urine output with azotemia and will need to monitor for hyperkalemia, uremia, fluid retention ? Follow-up urine studies ? Avoid nephrotoxic agents ? Renally dose medications #Acute metabolic encephalopathy #History of seizures #Shock, distributive versus obstructive versus cardiogenic #HFpEF (EF 55 to 60%) #Atrial fibrillation #Elevated troponin #Transaminitis #Hypertension #Hyperlipidemia #CAD #Acute hypoxic/hypercapnic respiratory failure, secondary to #Influenza A pneumonia #COPD #Type 2 diabetes mellitus, insulin-dependent ? Continue management per primary team ----- Plan discussed with attending physician Dr. Jean-Claude Khan MD PGY-1 Internal Medicine Attending Provider Attestation/Addendum Patient seen and examined with resident physician Dr. Angel. Note reviewed, agree with findings and recommendations. Patient currently seen on dialysis. Tolerating dialysis without any problems. Hemodialysis for 3 hours, 2K, ultrafiltration 1 L, Epogen 6000, no heparin ordered. Plan of care discussed with the dialysis nurse. Please see dialysis flowsheet for further details. Patient currently seen in ICU. On pressors.
[2024-08-13] MEDS: INSULIN GLARGINE (Lantus) 5 UNIT/0.05 ML (PER 5 UNITS) 15 UNIT SC (09:08)
[2024-08-13] MEDS: MIDODRINE 5 MG TABLET GT (09:17)
--- NOTE | 2024-08-13 10:19 | PC.NURSE ---
Levophed still has some volume in the container, rate was set at 0.01 mcg/kg/min. Mar only allowed me to titrate till 0700 on 08/13/2024. Medication was left turned off at 0705 per MD Wiley. At 0728 BP dropped to 75/45 so medication was restarted at 0.01 mcg/kg/min per . Titration for 0800 (0.01mcg/kg/min), 0900 (0.01 mcg/kg/min), 1000 (0.01 mcg/kg/min).
[2024-08-13] MEDS: Norepinephrine/D5W 8mg/250ml 8 MG/250 ML BAG 2.948 MG IV (10:23)
--- NOTE | 2024-08-13 10:38 | ESPR_ITS ---
Documentation for date of: 08/13/24 Subjective Subjective Interval history: 08/11/2024: Patient examined at bedside today. No acute overnight events on telemetry. Patient is still mechanically ventilated, PEEP of 12, respiratory of 28, tidal volume of 500 on volume control. Patient was given 80 Lasix today and was able to put out approximately 500 mL, however patient's creatinine jumped up to 2.9 today. Most recent ABG showed pH of roughly 7.15 pCO2 in the 50s. AST ALT jumped to 553 and 254. Patient remains to be borderline bradycardic, still in A-fib rate 61. Will continue with current management, will hold off on diuresis at this time. Primary team to further workup for pulmonary embolus with CTA. 08/12/2024: Patient examined at bedside today. Patient went into A-fib overnight, reaching up to 138 for heart rate, patient was then started on amnio drip. Patient is still mechanically ventilated. Addition of more A-line was done yesterday. Patient is now on 3 pressors with addition of phenylephrine. CTA showed ARDS pattern. Will continue to treat, however patient to get cath or for dialysis. BUN/creatinine 16 and 4.3 respectively, hemoglobin had 12, ABG pH 7.34 and bicarb 22, pCO2 41, potassium 4.7, magnesium 1.9. 08/13/2024: Pt examined at bedside today. Patient is currently still in rate of 120s, still in A-fib. Patient is improving, had hemodialysis yesterday 1 L removed, chest x-ray looks improved after dialysis. Patient is currently undergoing SBT currently off sedation and only on Levophed currently at this time. ICU team will possibly extubate today. Patient's hemoglobin tomorrow 5 today, potassium of 4, magnesium of 2 AST ALT 688 and 597 respectively, BUN/creatinine of 66 and 4.2 respectively. Most recent ABG shows pH of 7.35, pCO2 of 40, bicarb of 22 and albumin of 3.4. Will continue with Amio drip at 1 mg/min for couple more days, recommended to give oral Amio 200 mg twice daily. Check QTc daily Exam Vital Signs Temp Pulse Resp BP Pulse Ox O2 Del Method O2 Flow Rate 98.0 F 134 H 30 H 86/68 L 96 Mechanical Ventilation 15 08/13/24 08:00 08/13/24 10:30 08/13/24 06:42 08/13/24 10:30 08/13/24 10:30 08/10/24 19:30 08/10/24 11:39 FiO2 28 08/13/24 08:00 Narrative Exam General: AAOx0, dishelved, morbidly obese man, unkempt, bearded male HEENT: Moist mucous membranes, conjunctiva clear, EOMI,skin tags present Cardiovascular: Pansystolic murmur ausculated upon mitral valve and R sternal border, no carotid bruit appreciated, radial pulses +2 bilat, irregularly irregular, Radial A-line present, bilat wrist restraints present Pulmonary: Undergoing SBT, coarse breath sounds GI: No ascites noted, bowel sounds present, however, abd obesity Extremities: venous stasis noted, unkempt feet, +2 bilat edema in LE, +1 edema bilat LE Neuro: AAOx0 Objective Labs 08/13/24 05:00 08/13/24 20:21 Labs: Laboratory Results - last 24 hr 08/12/24 08/12/24 08/12/24 10:45 13:14 14:10 WBC RBC Hgb Hct MCV MCH MCHC RDW Std Deviation Plt Count Neut % (Auto) Lymph % (Auto) Marshall % (Auto) Eos % (Auto) Baso % (Auto) Neut # (Auto) Lymph # (Auto) Marshall # (Auto) Eos # (Auto) Baso # (Auto) Immature Gran # (Auto) Absolute Nucleated RBC Immature Gran % Nucleated RBC % PT 15.0 H D INR 1.4 H APTT 45.6 H Puncture Site Arterial Line ABG pH 7.33 L ABG pCO2 40 ABG pO2 114 H D ABG HCO3 21 ABG O2 Saturation 99 H ABG Base Excess -5 L VBG pH 7.30 L VBG pCO2 43 VBG pO2 53 VBG O2 Sat (Chuy) 87 L VBG Base Excess -5 L FiO2 40 Sodium 129 L Potassium 4.7 Chloride 95 L Carbon Dioxide 21.0 Anion Gap 13 BUN 63 H Creatinine 4.3 H* Estim Creat Clear Calc 27.9 L eGFR 15 L BUN/Creatinine Ratio 15 Glucose 218 H D Calculated Osmolality 283 Calcium 7.4 L Corrected Calcium 8.1 L Phosphorus 4.6 Magnesium Total Bilirubin AST ALT Alkaline Phosphatase Total Protein Albumin 3.1 L Globulin Albumin/Globulin Ratio Hepatitis A IgM Ab Non Reactive Hep Bs Antigen Non Reactive Hep Bs Antibody NonReact(Not Immune) L Hep B Core IgM Ab Non Reactive Hepatitis C Antibody Non Reactive 08/12/24 08/12/24 08/13/24 19:57 20:15 04:27 WBC RBC Hgb Hct MCV MCH MCHC RDW Std Deviation Plt Count Neut % (Auto) Lymph % (Auto) Marshall % (Auto) Eos % (Auto) Baso % (Auto) Neut # (Auto) Lymph # (Auto) Marshall # (Auto) Eos # (Auto) Baso # (Auto) Immature Gran # (Auto) Absolute Nucleated RBC Immature Gran % Nucleated RBC % PT INR APTT 97.6 H D Puncture Site Right Brachial Arterial Line ABG pH 7.35 7.35 ABG pCO2 41 40 ABG pO2 103 95 ABG HCO3 23 22 ABG O2 Saturation 99 H 98 ABG Base Excess -3 -4 L VBG pH VBG pCO2 VBG pO2 VBG O2 Sat (Chuy) VBG Base Excess FiO2 35 28 Sodium Potassium Chloride Carbon Dioxide Anion Gap BUN Creatinine Estim Creat Clear Calc eGFR BUN/Creatinine Ratio Glucose Calculated Osmolality Calcium Corrected Calcium Phosphorus Magnesium Total Bilirubin AST ALT Alkaline Phosphatase Total Protein Albumin Globulin Albumin/Globulin Ratio Hepatitis A IgM Ab Hep Bs Antigen Hep Bs Antibody Hep B Core IgM Ab Hepatitis C Antibody 08/13/24 05:00 WBC 13.9 H RBC 3.78 L Hgb 10.5 L Hct 30.6 L MCV 81 MCH 27.8 MCHC 34.3 RDW Std Deviation 42.9 Plt Count 177 D Neut % (Auto) 88 H Lymph % (Auto) 8 L Marshall % (Auto) 4 Eos % (Auto) 0 Baso % (Auto) 0 Neut # (Auto) 12.2 H Lymph # (Auto) 1.1 Marshall # (Auto) 0.5 Eos # (Auto) 0.0 Baso # (Auto) 0.0 Immature Gran # (Auto) 0.11 H Absolute Nucleated RBC 0.02 H Immature Gran % 1 H Nucleated RBC % 0 PT 12.3 H INR 1.1 APTT 97.1 H Puncture Site ABG pH ABG pCO2 ABG pO2 ABG HCO3 ABG O2 Saturation ABG Base Excess VBG pH VBG pCO2 VBG pO2 VBG O2 Sat (Chuy) VBG Base Excess FiO2 Sodium 129 L Potassium 4.0 D Chloride 94 L Carbon Dioxide 21.3 Anion Gap 14 BUN 66 H Creatinine 4.2 H* Estim Creat Clear Calc 28.6 L eGFR 15 L BUN/Creatinine Ratio 16 Glucose 244 H Calculated Osmolality 285 Calcium 7.7 L Corrected Calcium 8.2 L Phosphorus 4.3 Magnesium 2.1 Total Bilirubin 2.0 H AST 688 H* ALT 597 H* Alkaline Phosphatase 35 L D Total Protein 5.8 Albumin 3.4 Globulin 2.4 Albumin/Globulin Ratio 1.4 Hepatitis A IgM Ab Hep Bs Antigen Hep Bs Antibody Hep B Core IgM Ab Hepatitis C Antibody ABG Interpretation ABG results: 08/10/24 08/10/24 08/10/24 11:34 13:55 16:46 ABG pH 7.21 L 6.97 L* D 6.99 L* ABG pCO2 49 H 95 H* D 78 H* D ABG pO2 60 L 64 L 41 L* D ABG HCO3 20 22 19 L ABG O2 Saturation 86 L 80 L 58 L ABG Base Excess -8 L -12 L -14 L VBG pH VBG pCO2 VBG pO2 VBG Base Excess 08/10/24 08/10/24 08/10/24 19:28 20:48 21:13 ABG pH 7.01 L* Cancelled 7.08 L* ABG pCO2 75 H* Cancelled 69 H ABG pO2 47 L* Cancelled 61 L ABG HCO3 19 L Cancelled 20 ABG O2 Saturation 72 L Cancelled 87 L ABG Base Excess -13 L Cancelled -11 L VBG pH VBG pCO2 VBG pO2 VBG Base Excess 08/11/24 08/11/24 08/11/24 00:34 04:08 14:56 ABG pH 7.14 L* 7.16 L* 7.17 L* ABG pCO2 60 H 54 H 50 H ABG pO2 83 D 114 H D 72 L D ABG HCO3 20 19 L 18 L ABG O2 Saturation 96 99 H 93 ABG Base Excess -10 L -10 L -10 L VBG pH VBG pCO2 VBG pO2 VBG Base Excess 08/11/24 08/11/24 08/12/24 20:05 23:14 02:06 ABG pH 7.20 L 7.25 L 7.27 L ABG pCO2 55 H 49 H 50 H ABG pO2 82 L 93 90 ABG HCO3 21 22 23 ABG O2 Saturation 96 98 98 ABG Base Excess -7 L -6 L -4 L VBG pH VBG pCO2 VBG pO2 VBG Base Excess 08/12/24 08/12/24 08/12/24 06:30 10:13 10:45 ABG pH 7.34 L 7.31 L ABG pCO2 41 42 ABG pO2 177 H D 134 H D ABG HCO3 22 21 ABG O2 Saturation 100 H 100 H ABG Base Excess -4 L -5 L VBG pH 7.30 L VBG pCO2 43 VBG pO2 53 VBG Base Excess -5 L 08/12/24 08/12/24 08/13/24 14:10 19:57 04:27 ABG pH 7.33 L 7.35 7.35 ABG pCO2 40 41 40 ABG pO2 114 H D 103 95 ABG HCO3 21 23 22 ABG O2 Saturation 99 H 99 H 98 ABG Base Excess -5 L -3 -4 L VBG pH VBG pCO2 VBG pO2 VBG Base Excess Quality Measures Quality Measures none Assessment & Plan Assessment Current Active Medications: Generic Name Dose Route Start Last Admin Trade Name Freq PRN Reason Stop Dose Admin Acetaminophen 650 mg 08/11/24 08:37 Acetaminophen 325 Mg Tablet PO 09/10/24 05:56 Q6HR PRN FEVER >101 Albuterol/Ipratropium 3 ml 08/09/24 19:00 08/13/24 06:40 Albuterol/Ipratropium (Duoneb) Rt Aspen 3 Ml Nebu INH 09/08/24 18:59 3 ml Q6HRRT ASHWIN Administration Aspirin 81 mg 08/11/24 09:00 08/13/24 08:52 Aspirin Ec 81 Mg Tabec PO 09/10/24 08:59 81 mg QDAY ASHWIN Administration Rosuvastatin 20 Mg 0 ea 08/09/24 21:00 08/12/24 21:45 PO 09/08/24 20:59 1 tablet HS ASHWIN Administration Dextrose 25 ml 08/09/24 15:31 Dextrose 50%-Water Inj 50 Ml Syringe IV 09/08/24 15:30 Q15MIN PRN BG 50-70 responsive npo pt Dextrose 50 ml 08/09/24 15:31 08/12/24 04:24 Dextrose 50%-Water Inj 50 Ml Syringe IV 09/08/24 15:30 50 ml Q15MIN PRN Administration BG <50 OR BG <70 & pt unresponsive Furosemide 40 mg 08/10/24 21:00 08/11/24 08:17 Furosemide Inj 10 Mg/Ml 4ml Vial IVP 09/09/24 20:59 40 mg BID ASHWIN Administration Glucagon 1 mg 08/09/24 15:31 Glucagon Inj 1 Mg Vial IM Q15MIN PRN BG <70, and no IV access Heparin Sodium (Porcine) 3,000 unit 08/12/24 15:11 08/12/24 19:16 Heparin Sod Inj 1000 Unit/Ml Vial 10 Ml INDWELLCAT 08/26/24 15:10 3,000 unit PRN PRN Administration DIALYSIS Fentanyl Citrate 2,500 mcg in 250 mls @ 2.5 mls/hr 08/10/24 14:20 08/13/24 09:00 Sublimaze Inj 2,500 Mcg/250 Ml Bag IV 08/15/24 14:19 0 mcg/hr .Q24H PRN 0 mls/hr PER PROTOCOL Titration Protocol 25 MCG/HR Vasopressin/Sodium Chloride 20 unit in 100 mls @ 9 mls/hr 08/10/24 14:53 08/13/24 08:00 Vasostrict/Ns Ivpb IV 09/09/24 14:52 Infused .Q11H7M PRN Titration PER PROTOCOL Protocol 0.03 UNIT/MIN Norepinephrine/Dextrose 8 mg in 250 mls @ 14.738 mls/hr 08/10/24 15:30 08/13/24 07:00 Levophed In D5w 8mg/250ml IV 09/09/24 15:29 Infused .[id number] PRN Titration PER PROTOCOL Protocol 0.05 MCG/KG/MIN Phenylephrine HCl 40 mg/ 100 mls @ 12.083 mls/hr 08/12/24 09:35 08/13/24 04:30 Sodium Chloride IV 09/11/24 09:34 0 mcg/kg/min .Q8H17M PRN 0 mls/hr Per Sepsis Protocol Titration Protocol 0.5 MCG/KG/MIN Heparin Sodium/Dextrose 25,000 unit in 250 mls @ 17.721 mls/hr 08/12/24 14:30 08/13/24 06:27 Heparin In D5w Ivpb IV 08/26/24 14:29 7 units/kg/hr .Q14H7M ASHWIN 11.277 mls/hr Administration Protocol 11 UNITS/KG/HR Albumin Human 25 gm in 100 mls @ 100 mls/min 08/12/24 15:11 Albuminar-25 Ivpb IV PRN PRN DIALYSIS Ampicillin Sodium/Sulbactam 100 mls @ 200 mls/hr 08/13/24 12:00 Sodium 3 gm/ Sodium Chloride IV 08/20/24 11:59 Q6HR ASHWIN Insulin Glargine 15 unit 08/12/24 09:30 08/13/24 09:08 Insulin Glargine (Lantus) 5 Unit/0.05 Ml (Per 5 Units) SC 09/11/24 09:29 15 unit QDAY ASHWIN Administration Insulin Human Lispro 0 unit 08/13/24 07:46 08/13/24 09:12 Insulin Lispro (Admelog) 1 Unit/0.01 Ml Unit SC 09/11/24 09:59 8 unit Q4HR ASHWIN Administration Protocol Midodrine 5 mg 08/13/24 09:15 08/13/24 09:17 Midodrine 5 Mg Tablet GT 09/12/24 09:14 5 mg TID ASHWIN Administration Mirtazapine 45 mg 08/09/24 21:00 08/10/24 21:28 Mirtazapine 15 Mg Tablet PO 09/08/24 20:59 45 mg HS ASHWIN Administration Ondansetron HCl 4 mg 08/09/24 15:20 Ondansetron Inj 2 Mg/Ml Inj 2 Ml IV 09/08/24 15:19 Q6H PRN NAUSEA OR VOMITING Protocol Oseltamivir Phosphate 30 mg 08/12/24 09:00 08/13/24 08:52 Oseltamivir 30 Mg Capsule PO 08/14/24 09:01 30 mg BID ASHWIN Administration Pantoprazole Sodium 40 mg 08/09/24 15:30 08/13/24 08:52 Pantoprazole Inj 40 Mg Vial IVP 09/08/24 15:29 40 mg QDAY ASHWIN Administration Paroxetine HCl 40 mg 08/09/24 21:00 08/10/24 21:29 Paroxetine Hcl 10 Mg Tablet PO 09/08/24 20:59 40 mg HS ASHWIN Administration Pharmacy Consult 1 each 08/11/24 20:59 Pharmacy Renal Dose Adjustment 1 Ea XX 09/10/24 20:58 PRN PRN CONSULT Risperidone 6 mg 08/09/24 21:00 08/10/24 21:29 Risperidone 1 Mg Tablet PO 09/08/24 20:59 6 mg HS ASHWIN Administration Tamsulosin HCl 0.4 mg 08/09/24 16:00 08/13/24 08:52 Tamsulosin Hcl 0.4 Mg Capsule PO 09/08/24 15:59 0.4 mg QDAY ASHWIN Administration Topiramate 50 mg 08/09/24 21:00 08/12/24 21:44 Topiramate 25 Mg Tablet PO 09/08/24 20:59 50 mg HS ASHWIN Administration Plan Assessment Andrew is a 64 y/o male with past medical history of hypertension, hyperlipidemia, CAD, type 2 diabetes insulin-dependent, CHF, A-fib (on Eliquis 5mg twice daily), history of seizures who is currently admitted into the ICU for acute hypoxic hypercarbic respiratory failure requiring intubation and likely septic shock secondary to influenza A. #Septic shock secondary to #Influenza A #? Superimposed bacterial infection Influenza A positive Currently on levophed, vasopressin, phenylepiphrine Pt currently has A line at this time Blood cultures NG1D, sputum negative Plan: -Continue Tamiflu started for patient -Continue Zosyn -Treat infection to wean down pressors #Hx of CAD #Acute exacerbation of HFpEF with diastolic dysfunction #NSTEMI type II, likely related to demand ischemia Echo shows EF 55-60%, normal LV, mild LVH, dilated RV, IVC dilated, AV stenosis Troponins have peaked Pt BUN/Cr 66 and 4.2 respectively, removed 1L dialysis yesterday which improved pt Plan: -Will hold on diuresis at this time due to ARIANA, another dialysis session today -Resume ASA #Chronic, A-fib, rate controlled, on home Eliquis [id number] HAS-BLED: 1 Irregular and rate in the 120s needed AC:Has home Eliquis Pt is currently on pressors Will continue with Amio drip at 1 mg/min for couple more days, recommended to give oral Amiodarone 200 mg twice gustavo before adding any other AV bebo blockers like digoxin. Check QTc daily Plan: ?We recommend to continue Amio drip in addition with oral Amio 200 mg twice daily before adding any additional medicines ?Continue Amio drip for 2 to 3 days #IDDM #Hyperlipidemia #Hypertension Total Cholesterol: 83 LDL:30 A1c 7.1 Plan: Holding BP meds as he is hypotensive and on pressors Resumed home Rosuvastatin Primary team to handle BG #Acute hypoxic hypercarbic respiratory failure #Respiratory acidosis #? hx of COPD #? OHS Likely multifactorial, could be also due to flash pulmonary edema due rapid changes However, this could also be due to infectious cause, OHS, COPD Extensive smoking history, pt is most likely has COPD On ventilator currently, will adjust settings and PEEP to bring down acidosis ABG pH: 7.35, PCO2 40 Plan: -Treat underlying infection -Pulmonary hygiene -Chest physiotherapy -ABGS -Consider levalbuterol considering afib hx #ARIANA, prerenal #Shock liver #History of depression #History of seizures #Normocytic Anemia #Mild Hyponatremia Hypo-osmolar, Hypervolemic Above managed by ICU team Patient seen and care discussed with my attending physician, Dr. Karrie Merritt, PGY-1 Attending Provider Attestation/Addendum I have personally seen and examined the patient separately on the above date of service and discussed the plan of care with the resident. I reviewed the resident Dr. Gaming consultation progress note and agree with the resident findings and plan in the note above and have also edited the documentation to reflect my findings and plan. Nacho Yoon M.D. Interventional Cardiology
[2024-08-13] MEDS: AMPICILLIN/SULBAC INJ 3 GM in SODIUM CHLORIDE 0.9% 100 ML IV ×2 (12:33→19:59)
[2024-08-13] MEDS: AMIODARONE 360 MG IVPB 360 MG/200 ML BAG 33.333 MG IV (12:44)
[2024-08-13 13:48] LABS: Partial Thromboplastin Time 68.8 Seconds (22.0-36.0)
--- NOTE | 2024-08-13 16:01 | ESPR_ITS ---
<Statement entered by Idalmis Murry MD - 08/15/24 10:03> TOTAL TIME: 45MINUTES ON DIRECT MEDICAL CARE, MANAGEMENT - COORDINATION AND COUNSELING > 50% OF TOTAL TIME I saw and evaluated the patient. I reviewed the resident?s note and agree with findings and plan as documented in the resident?s note. Extubated without incident Continue hemodialysis as scheduled chest x-ray still is a combination of recovering acute lung injury from aspiration and pulmonary edema due to renal failure and heart failure <Statement entered by Светлана Dotson DO - 08/13/24 21:57> Senior attestation: Patient was examined and case was reviewed with team including attending physician. Note reviewed, I agree with most of its contents and agree with the patient's care. Patient was placed on SBT today, tolerated well and was extubated in the late afternoon, sedation weaned off. Remains on minimal pressors today, will continue weaning off as tolerated. Will start midodrine today, adjusted antibiotics to IV Unasyn. Will continue IV amiodarone for atrial fibrillation, however noted to be sustain at HR ~120s hours after extubation and sedation was weaned, will start renally-dosed digoxin in addition to IV amiodarone. Светлана Dotson DO PGY-3 Documentation for date of: 08/13/24 Subjective Subjective Interval history: Mr. Bella is a 64-year-old male with a past medical history of hypertension, hyperlipidemia, CAD, diabetes mellitus type 2 insulin-dependent, CHF (unknown ejection fraction), atrial fibrillation, history of seizures, who presented to [facility] emergency room with acute increasing dyspnea and increasing cough. Patient stated that he has been having increasing pleuritic chest pain secondary to productive cough. Patient stated his cough is productive. Come into the emergency room today after being unable to reach the restroom because of increasing shortness of breath. Patient denied typically here with increasing wheezing. Patient denied any sick contacts. Increased perspiration. Increased orthopnea. Increasing shortness of breath. Negative paroxysmal nocturnal orthopnea. Positive for diarrhea. Increased bilateral swelling. History of BPH. History of depression. Patient was admitted on 08/09/2024 for CHF exacerbation and influenza A. Patient history of recent travel, recently moved to [place] from [place]. Patient had a rapid response called earlier this morning for low SpO2 84% despite 8 L of oxygen patient had increased work of breathing was tachypneic with circulation intact, patient was started on IV steroids, IV antibiotics. Eventually patient had another rapid response called for altered mental status, patient was noted to be unresponsive to verbal Kaman, responsive to only painful stimuli, patient is GCS of 7 was unable to protect airway, aspiration noted at bedside and patient was emergently intubated. At bedside patient noted to have pink frothy aspirate, high suspicion of pulmonary edema, patient upgraded to intensive care unit for further management. Patient eventually had a central line and arterial line placed. Attempt was made to reach out to patient's emergency contact, but none was available, eventually contacted patient's friend and primary decision maker Rodrigo Schneider. 08/11/24:Patient seen and examined at bedside, overnight significant improvement in patient's, PS this morning 7.16, pCO2 54, bicarb 19.9, high suspicion of underlying shock distributive due to aspiration pneumonia, ordered CTA chest along with CT abdomen pelvis, no known source for sepsis, CTA shows significant bilateral pneumonia with ARDS pattern, patient's antibiotic therapy optimized to Zosyn, linezolid and azithromycin. Patient is also on Tamiflu due to underlying influenza, methylprednisone discontinued, underlying respiratory disease from aspiration pneumonia, less likely COPD exacerbation, will continue with DuoNeb every 6 hours, will hold Lasix and discontinue vancomycin due to worsening renal function, high suspicion of acute tubular necrosis due to sepsis, elevated LFTs, high possibility of shock liver, patient's blood glucose significantly elevated started on insulin gtt. significant elevation of Pro-Donte noted today, nephrology was consulted due to worsening renal function. 08/12/24: Patient seen and examined at bedside, overnight patient developed atrial fibrillation, started on, patient was given Versed push x 1, insulin drip was discontinued around 3 AM due to normalization of blood glucose levels. Patient seen at bedside this morning, minimal urine output, was given Bumex 2 mg x 1, no urine output noted, discussed with vertical lathe operator patient will receive dialysis treatment today goal to remove about 1 L fluid, patient's pressor regimen optimized to Levophed, phenylephrine and vasopressin, will decrease Levophed dose as patient has atrial fibrillation with RVR to minimize increase in heart rate due to Levophed. Patient was started on heparin drip due to underlying atrial fibrillation, will start on tube feeds today, started on 15 units Lantus and sliding scale insulin. Patient's heart rate not well- controlled on amiodarone drip, will consider digoxin 0.5 if needed. Potassium and magnesium optimized at more than 4 and more than 2 respectively. Will continue to monitor patient. 08/13/24: Patient seen and examined at bedside, no acute overnight events, patient was on fentanyl this morning, was started on pressure support this morning, marked improvement noted, marked improvement noted in patient's x-ray, patient requiring minimal pressor support, on low-dose Levophed this morning, RSBI around 18 on pressure support, NIF trial at bedside patient responded well, patient received dialysis treatment yesterday, had about 1 L fluid removed, patient's heart rate continues to remain elevated heart rate around 110-120, currently on amiodarone and heparin drip. Patient was extubated later in the day as sedation wore off, patient tolerating extubation well, patient's point of contact updated on patient's condition at bedside. Antibiotic therapy optimized to IV Unasyn, patient's LFTs continue to remain elevated, otherwise we will continue to maintain MAP of more than 65 on midodrine. Will continue to monitor patient. Exam Vital Signs Temp Pulse Resp BP Pulse Ox O2 Del Method O2 Flow Rate 100.0 F 137 H 24 H 108/68 90 L Mechanical Ventilation 15 08/13/24 12:00 08/13/24 15:30 08/13/24 15:30 08/13/24 15:30 08/13/24 15:30 08/10/24 19:30 08/10/24 11:39 FiO2 28 08/13/24 13:33 Narrative Exam General: AAOx1, extubated today, weaning off sedation, awake at times, morbidly obese man, unkempt, bearded male HEENT: Moist mucous membranes, conjunctiva clear, EOMI,skin tags present, right IJ central line Cardiovascular: Pansystolic murmur ausculated upon mitral valve and R sternal border, no carotid bruit appreciated, radial pulses +2 bilat, irregularly irregular, Radial A-line present, bilat wrist restraints present Pulmonary: Crackles appreciated bilaterally, patient on mechanical ventilation, intubated GI: No ascites noted, bowel sounds present, however, abd obesity Extremities: venous stasis noted, unkempt feet, +2 bilat edema in LE Neuro: Awake at times, following commands, responds to pain, able to respond to questions. Objective Labs 08/13/24 05:00 08/13/24 05:00 Labs: Laboratory Results - last 24 hr 08/12/24 08/12/24 08/12/24 10:45 19:57 20:15 WBC RBC Hgb Hct MCV MCH MCHC RDW Std Deviation Plt Count Neut % (Auto) Lymph % (Auto) [place] % (Auto) Eos % (Auto) Baso % (Auto) Neut # (Auto) Lymph # (Auto) [place] # (Auto) Eos # (Auto) Baso # (Auto) Immature Gran # (Auto) Absolute Nucleated RBC Immature Gran % Nucleated RBC % PT INR APTT 97.6 H D Puncture Site Right Brachial ABG pH 7.35 ABG pCO2 41 ABG pO2 103 ABG HCO3 23 ABG O2 Saturation 99 H ABG Base Excess -3 FiO2 35 Sodium Potassium Chloride Carbon Dioxide Anion Gap BUN Creatinine Estim Creat Clear Calc eGFR BUN/Creatinine Ratio Glucose Calculated Osmolality Calcium Corrected Calcium Phosphorus Magnesium Total Bilirubin AST ALT Alkaline Phosphatase Total Protein Albumin Globulin Albumin/Globulin Ratio Hepatitis A IgM Ab Non Reactive Hep Bs Antigen Non Reactive Hep Bs Antibody NonReact(Not Immune) L Hep B Core IgM Ab Non Reactive Hepatitis C Antibody Non Reactive 08/13/24 08/13/24 08/13/24 04:27 05:00 12:50 WBC 13.9 H RBC 3.78 L Hgb 10.5 L Hct 30.6 L MCV 81 MCH 27.8 MCHC 34.3 RDW Std Deviation 42.9 Plt Count 177 D Neut % (Auto) 88 H Lymph % (Auto) 8 L [place] % (Auto) 4 Eos % (Auto) 0 Baso % (Auto) 0 Neut # (Auto) 12.2 H Lymph # (Auto) 1.1 [place] # (Auto) 0.5 Eos # (Auto) 0.0 Baso # (Auto) 0.0 Immature Gran # (Auto) 0.11 H Absolute Nucleated RBC 0.02 H Immature Gran % 1 H Nucleated RBC % 0 PT 12.3 H INR 1.1 APTT 97.1 H 68.8 H D Puncture Site Arterial Line ABG pH 7.35 ABG pCO2 40 ABG pO2 95 ABG HCO3 22 ABG O2 Saturation 98 ABG Base Excess -4 L FiO2 28 Sodium 129 L Potassium 4.0 D Chloride 94 L Carbon Dioxide 21.3 Anion Gap 14 BUN 66 H Creatinine 4.2 H* Estim Creat Clear Calc 28.6 L eGFR 15 L BUN/Creatinine Ratio 16 Glucose 244 H Calculated Osmolality 285 Calcium 7.7 L Corrected Calcium 8.2 L Phosphorus 4.3 Magnesium 2.1 Total Bilirubin 2.0 H AST 688 H* ALT 597 H* Alkaline Phosphatase 35 L D Total Protein 5.8 Albumin 3.4 Globulin 2.4 Albumin/Globulin Ratio 1.4 Hepatitis A IgM Ab Hep Bs Antigen Hep Bs Antibody Hep B Core IgM Ab Hepatitis C Antibody ABG Interpretation ABG results: 08/10/24 08/10/24 08/10/24 11:34 13:55 16:46 ABG pH 7.21 L 6.97 L* D 6.99 L* ABG pCO2 49 H 95 H* D 78 H* D ABG pO2 60 L 64 L 41 L* D ABG HCO3 20 22 19 L ABG O2 Saturation 86 L 80 L 58 L ABG Base Excess -8 L -12 L -14 L VBG pH VBG pCO2 VBG pO2 VBG Base Excess 08/10/24 08/10/24 08/10/24 19:28 20:48 21:13 ABG pH 7.01 L* Cancelled 7.08 L* ABG pCO2 75 H* Cancelled 69 H ABG pO2 47 L* Cancelled 61 L ABG HCO3 19 L Cancelled 20 ABG O2 Saturation 72 L Cancelled 87 L ABG Base Excess -13 L Cancelled -11 L VBG pH VBG pCO2 VBG pO2 VBG Base Excess 08/11/24 08/11/24 08/11/24 00:34 04:08 14:56 ABG pH 7.14 L* 7.16 L* 7.17 L* ABG pCO2 60 H 54 H 50 H ABG pO2 83 D 114 H D 72 L D ABG HCO3 20 19 L 18 L ABG O2 Saturation 96 99 H 93 ABG Base Excess -10 L -10 L -10 L VBG pH VBG pCO2 VBG pO2 VBG Base Excess 08/11/24 08/11/24 08/12/24 20:05 23:14 02:06 ABG pH 7.20 L 7.25 L 7.27 L ABG pCO2 55 H 49 H 50 H ABG pO2 82 L 93 90 ABG HCO3 21 22 23 ABG O2 Saturation 96 98 98 ABG Base Excess -7 L -6 L -4 L VBG pH VBG pCO2 VBG pO2 VBG Base Excess 08/12/24 08/12/24 08/12/24 06:30 10:13 10:45 ABG pH 7.34 L 7.31 L ABG pCO2 41 42 ABG pO2 177 H D 134 H D ABG HCO3 22 21 ABG O2 Saturation 100 H 100 H ABG Base Excess -4 L -5 L VBG pH 7.30 L VBG pCO2 43 VBG pO2 53 VBG Base Excess -5 L 08/12/24 08/12/24 08/13/24 14:10 19:57 04:27 ABG pH 7.33 L 7.35 7.35 ABG pCO2 40 41 40 ABG pO2 114 H D 103 95 ABG HCO3 21 23 22 ABG O2 Saturation 99 H 99 H 98 ABG Base Excess -5 L -3 -4 L VBG pH VBG pCO2 VBG pO2 VBG Base Excess Quality Measures Quality Measures none Assessment & Plan Assessment Current Active Medications: Generic Name Dose Route Start Last Admin Trade Name Freq PRN Reason Stop Dose Admin Acetaminophen 650 mg 08/11/24 08:37 Acetaminophen 325 Mg Tablet PO 09/10/24 05:56 Q6HR PRN FEVER >101 Albuterol/Ipratropium 3 ml 08/09/24 19:00 08/13/24 13:33 Albuterol/Ipratropium (Duoneb) Rt Aspen 3 Ml Nebu INH 09/08/24 18:59 3 ml Q6HRRT ASHWIN Administration Aspirin 81 mg 08/11/24 09:00 08/13/24 08:52 Aspirin Ec 81 Mg Tabec PO 09/10/24 08:59 81 mg QDAY ASHWIN Administration Rosuvastatin 20 Mg 0 ea 08/09/24 21:00 08/12/24 21:45 PO 09/08/24 20:59 1 tablet HS ASHWIN Administration Dextrose 25 ml 08/09/24 15:31 Dextrose 50%-Water Inj 50 Ml Syringe IV 09/08/24 15:30 Q15MIN PRN BG 50-70 responsive npo pt Dextrose 50 ml 08/09/24 15:31 08/12/24 04:24 Dextrose 50%-Water Inj 50 Ml Syringe IV 09/08/24 15:30 50 ml Q15MIN PRN Administration BG <50 OR BG <70 & pt unresponsive Furosemide 40 mg 08/10/24 21:00 08/11/24 08:17 Furosemide Inj 10 Mg/Ml 4ml Vial IVP 09/09/24 20:59 40 mg BID ASHWIN Administration Glucagon 1 mg 08/09/24 15:31 Glucagon Inj 1 Mg Vial IM Q15MIN PRN BG <70, and no IV access Heparin Sodium (Porcine) 3,000 unit 08/12/24 15:11 08/12/24 19:16 Heparin Sod Inj 1000 Unit/Ml Vial 10 Ml INDWELLCAT 08/26/24 15:10 3,000 unit PRN PRN Administration DIALYSIS Fentanyl Citrate 2,500 mcg in 250 mls @ 2.5 mls/hr 08/10/24 14:20 08/13/24 09:00 Sublimaze Inj 2,500 Mcg/250 Ml Bag IV 08/15/24 14:19 0 mcg/hr .Q24H PRN 0 mls/hr PER PROTOCOL Titration Protocol 25 MCG/HR Vasopressin/Sodium Chloride 20 unit in 100 mls @ 9 mls/hr 08/10/24 14:53 08/13/24 08:00 Vasostrict/Ns Ivpb IV 09/09/24 14:52 Infused .Q11H7M PRN Titration PER PROTOCOL Protocol 0.03 UNIT/MIN Norepinephrine/Dextrose 8 mg in 250 mls @ 14.738 mls/hr 08/10/24 15:30 08/13/24 14:14 Levophed In D5w 8mg/250ml IV 09/09/24 15:29 0 mcg/kg/min .H99H44R PRN 0 mls/hr PER PROTOCOL Titration Protocol 0.05 MCG/KG/MIN Phenylephrine HCl 40 mg/ 100 mls @ 12.083 mls/hr 08/12/24 09:35 08/13/24 04:30 Sodium Chloride IV 09/11/24 09:34 0 mcg/kg/min .Q8H17M PRN 0 mls/hr Per Sepsis Protocol Titration Protocol 0.5 MCG/KG/MIN Heparin Sodium/Dextrose 25,000 unit in 250 mls @ 17.721 mls/hr 08/12/24 14:30 08/13/24 14:16 Heparin In D5w Ivpb IV 08/26/24 14:29 7 units/kg/hr .Q14H7M ASHWIN 11.277 mls/hr Titration Protocol 11 UNITS/KG/HR Albumin Human 25 gm in 100 mls @ 100 mls/min 08/12/24 15:11 Albuminar-25 Ivpb IV PRN PRN DIALYSIS Ampicillin Sodium/Sulbactam 100 mls @ 200 mls/hr 08/13/24 12:00 08/13/24 12:33 Sodium 3 gm/ Sodium Chloride IV 08/20/24 11:59 200 mls/hr Q6HR ASHWIN Administration Amiodarone HCl/Dextrose 360 mg in 200 mls @ 33.333 mls/hr 08/13/24 12:32 08/13/24 12:44 Nexterone Ivpb IV 08/13/24 18:31 33.333 mls/hr .Q6H ONE Administration Amiodarone HCl/Dextrose 360 mg in 200 mls @ 16.667 mls/hr 08/13/24 18:31 Nexterone Ivpb IV 08/14/24 18:30 .Q12H ASHWIN Insulin Glargine 15 unit 08/12/24 09:30 08/13/24 09:08 Insulin Glargine (Lantus) 5 Unit/0.05 Ml (Per 5 Units) SC 09/11/24 09:29 15 unit QDAY ASHWIN Administration Insulin Human Lispro 0 unit 08/13/24 10:41 08/13/24 14:44 Insulin Lispro (Admelog) 1 Unit/0.01 Ml Unit SC 09/11/24 09:59 8 unit Q4HR ASHWIN Administration Protocol Midodrine 5 mg 08/13/24 09:15 08/13/24 14:46 Midodrine 5 Mg Tablet GT 09/12/24 09:14 Not Given TID ASHWIN Mirtazapine 45 mg 08/09/24 21:00 08/10/24 21:28 Mirtazapine 15 Mg Tablet PO 09/08/24 20:59 45 mg HS ASHWIN Administration Ondansetron HCl 4 mg 08/09/24 15:20 Ondansetron Inj 2 Mg/Ml Inj 2 Ml IV 09/08/24 15:19 Q6H PRN NAUSEA OR VOMITING Protocol Oseltamivir Phosphate 30 mg 08/12/24 09:00 08/13/24 08:52 Oseltamivir 30 Mg Capsule PO 08/14/24 09:01 30 mg BID ASHWIN Administration Pantoprazole Sodium 40 mg 08/09/24 15:30 08/13/24 08:52 Pantoprazole Inj 40 Mg Vial IVP 09/08/24 15:29 40 mg QDAY ASHWIN Administration Paroxetine HCl 40 mg 08/09/24 21:00 08/10/24 21:29 Paroxetine Hcl 10 Mg Tablet PO 09/08/24 20:59 40 mg HS ASHWIN Administration Pharmacy Consult 1 each 08/11/24 20:59 Pharmacy Renal Dose Adjustment 1 Ea XX 09/10/24 20:58 PRN PRN CONSULT Risperidone 6 mg 08/09/24 21:00 08/10/24 21:29 Risperidone 1 Mg Tablet PO 09/08/24 20:59 6 mg HS ASHWIN Administration Tamsulosin HCl 0.4 mg 08/09/24 16:00 08/13/24 08:52 Tamsulosin Hcl 0.4 Mg Capsule PO 09/08/24 15:59 0.4 mg QDAY ASHWIN Administration Topiramate 50 mg 08/09/24 21:00 08/12/24 21:44 Topiramate 25 Mg Tablet PO 09/08/24 20:59 50 mg HS ASHWIN Administration Plan Assessment and Plan Summary: Mr. Bella is a 64-year-old male with past medical history of hypertension, hyperlipidemia, coronary artery disease, type diabetes mellitus insulin-dependent, CHF, atrial fibrillation, history of seizures who was admitted to [facility] for management of CHF exacerbation and influenza A. Patient upgraded to ICU after emergent intubation post worsening of mentation and bedside aspiration with inability to protect airway. Neurological #Acute metabolic encephalopathy Multifactorial: Acute hypoxic/hypercapnic respiratory failure, underlying acidosis, underlying sepsis, polypharmacy Diagnostic workup: Patient had altered mental status, unable to protect airway, ABG pH 6.97, pCO2 95, pO2 64 Home medication includes risperidone 6 mg at bedtime, mirtazapine 45 mg at bedtime, and paroxetine 40 mg at bedtime for depression Treatment: -Patient intubated started on mechanical ventilation -Correct underlying acidosis -Continue IV antibiotics -Will hold risperidone, mirtazapine and paroxetine -Discontinued fentanyl Follow-up: -Reorient frequently -Will treat underlying etiology #History of seizures Patient has a past medical history of seizures, last seizure was several years ago and patient cannot recall but has been stable. Home medication topiramate 50 mg HS. Differential diagnosis: Low suspicion of seizure, no seizure-like activity noted Diagnostic workup: Will monitor for seizures/seizure-like activity Treatment: -Continue topiramate 50 mg at bedtime Cardiology #Shock Differential diagnosis: Distributive (septic shock due to aspiration pneumonia) ruled out obstructive shock (pulmonary embolism) and cardiogenic shock Diagnostic workup: Chest CTA significant for bilateral pneumonia and ARDS, ruled out PE Patient is influenza A positive, significant aspiration noted bedside, suspicion of underlying aspiration pneumonia Chest x-ray significant for interval severe bilateral pneumonia Patient does have history of coronary artery disease, EKG showed no ST elevation, mild troponin elevation noted, Bedside echo shows good contractility, noted on cardiac Elevated Pro-Donte to 211.93 Patient was given Zosyn(08/10-08/13) , azithromycin, (08/10-08/12) linezolid (08/11-08/13) vancomycin (08/10-08/11) D/Koby Vasopresin, levophed, phenylepherine Treatment: -Started on midodrine 5 TID -Patient on Tamiflu, will continue (08/09- -patient started on Unasyn (08/13- Follow-up: -Follow lactate levels in AM #Congestive heart failure, HFpEF EF 55 to 60% # Mild aortic stenosis, mitral stenosis Differential diagnosis: Systolic versus diastolic heart failure Diagnostic workup: Patient complained of dyspnea at baseline, orthopnea on admission, 2+ leg edema bilaterally just below the knees, BNP 275 Repeat 618 Patient on Lasix at home, last ejection fraction unknown, echo done during this hospitalization Echo significant for Normal LV size and function. Mild LVH. Estimated EF 55-60%. Cannot determine diastolic function due to AFib. Mildly dilated RV and normal RV function. Could not visualize TR or tricuspid valve well. Unable to estimate RVSP and PAH. All valves poorly visualized. Mild AV stenosis, max gradient 33mmHg, vmax 2.8m/s. Mild AI and Mild AI IVC dilated Treatment: -Patient received 80 mg Lasix BID (08/10), patient was given Bumex 2 mg x 1 -No urine output noted with Bumex, will schedule for dialysis -Consulted cardiology, appreciate recommendations -Patient received dialysis 08/13, 1 L removed Follow-up: -Monitor urine output -Scheduled for dialysis today, will follow-up #Atrial fibrillation with rapid ventricular response Differential diagnosis: Patient has history of A-fib currently with RVR Diagnostic workup: EKG shows atrial fibrillation, irregular rate noted on telemetry at bedside Treatment: -Continue IV amiodarone -Continue heparin drip -Will consider digoxin for rate control if needed Follow-up: -Telemonitoring #Demand Ischemia Differential diagnosis: Demand Ischemia, NSTEMI type 1 ruled out Diagnostic workup: EKG negative for ST elevation Serial troponins noted to be elevated Troponins mildly elevated, troponin peak at 0.517, repeat EKG negative Treatment/Follow-up: -Will consider EKG, continue environmental monitoring specialist #Hypertension #Hyperlipidemia #History of coronary artery disease Has a past medical history of hyperlipidemia with a previous history of [place] approximately 5 years ago. Patient takes rosuvastatin 20 mg at bedtime. Patient has a past medical history of hypertension on losartan. Patient started on amlodipine 5 mg due to ARIANA during this hospitalization, will hold in setting of shock. Pulmonary #Acute hypoxic/hypercapnic respiratory failure secondary to #Influenza A #Aspiration pneumonia #COPD Differential diagnosis: Aspiration pneumonia, Influenza A, less likely COPD exacerbation, pulmonary embolism, pulmonary edema Diagnostic workup: Bedside influenza A positive, active aspiration event noted Worsening of chest x-ray noted CTA significant for bilateral pneumonia and ARDS pattern Patient has history of COPD, about 40 pack years Treatment: -DuoNeb every 6 hours -Started on midodrine 5 TID -Patient on Tamiflu, will continue (08/09- -patient started on Unasyn (08/13- Follow-up: -Optimize mechanical ventilator settings -Follow blood gas -Follow sputum culture Gastrointestinal # Hepatitis 2/2 shock liver Differential diagnosis: Shock liver, low suspicion of venous congestion or fluid Diagnostic workup: AST 553, ALT 254, significant rise in LFTs noted Hep panel negative Treatment: Will treat underlying cause Follow-up: Follow LFTs in AM Renal/Genitourinary #Acute kidney injury, likely secondary to ATN Differential diagnosis: Prerenal versus ATN in setting of ischemia Diagnostic workup: Elevated creatinine 1.6 on admission likely reflecting an ARIANA. Baseline unknown. Patient was not given fluids in setting of possible CHF exacerbation Patient received dialysis 08/13, 1 L removed Treatment: -Patient scheduled for dialysis today -Will monitor renal function -Consulted pharmacy to dose medications renally -Avoid nephrotoxic agents Follow-up: -Follow renal panel in a.m. Endocrine #Type 2 diabetes mellitus, insulin-dependent # Hyperglycemia Patient has a past medical history of diabetes mellitus type 2 Home medication include Lantus 12 units, Januvia (Sitagliptin), Jardiance (Empagliflozin), and Ozempic. Patient stated he has lost about 120 lbs. Diagnostic workup: Hemoglobin A1c 7.1 Treatment: -Discontinued insulin GGT -Started on Lantus 15 units daily, sliding scale lispro Follow-up: -Monitor fingerstick blood glucose every 6 hours -Goal fingerstick BG 140-180 Hematology #Leukocytosis Possibly due to underlying sepsis Infectious Disease #Influenza A #Pneumonia -See respiratory system for details Integumentary #Bilateral venous stasis Differential diagnosis: Chronic venous insufficiency Treatment: Wound care as needed DVT prophylaxis: Heparin GI prophylaxis: Protonix Diet: N.p.o. Lines: Peripheral IV, right IJ central line, right circumflex A-line, left femoral Vas-Cath Code status: Full code Catheter: Branham catheter, inserted 08/10-08/13 Case discussed with Attending Dr. Murry and Dr. Dotson PGY3. Ju Saez PGY1 Disclaimer: This note was dictated by speech recognition. Minor errors in children's book author may be present due to voice recognition software.
--- NOTE | 2024-08-13 17:15 | PC.NURSE ---
ABRAHAN Bains restarted levophed.
[2024-08-13] MEDS: HEPARIN SOD INJ 1000 UNIT/ML VIAL 10 ML 3000 UNIT INDWELLCAT (19:05)
[2024-08-13] MEDS: LEVALBUTEROL RT 0.63 MG/3 ML NEBU INH (19:36)
[2024-08-13 20:20] LABS: Base Excess -1 (-3-3); HCO3 27 mEq/L (20-26); O2 Saturation 96 % (91-98); PCO2 61 mmHg (32.0-48.0); PO2 84 mmHg (83-108); pH, Arterial 7.26 (7.35-7.45)
[2024-08-13 20:21] LABS: Allen Test Not Performed; Inspired Oxygen, FIO2 100 %; Puncture Site Arterial Line
[2024-08-13] MEDS: AMIODARONE 360 MG IVPB 360 MG/200 ML BAG 16.667 MG IV (20:56)
[2024-08-13 21:07] LABS: Ammonia 37 uMol/L (11-32)
[2024-08-13 21:51] LABS: Alanine Aminotransferase 746 U/L (10-49); Albumin, Serum 3.3 gm/dL (3.4-4.8); Albumin/Globulin Ratio 1.4 (1.2-2.2); Alkaline Phosphatase 51 U/L (46-116); Anion Gap 9 (7-16); Aspartate Amino Transferase 743 U/L (0-34); BUN/Creatinine Ratio 14 Ratio (12-20); Bilirubin,Total 1.4 mg/dL (0.3-1.2); Blood Urea Nitrogen 52 mg/dL (9-23); Calcium 7.7 mg/dL (8.3-10.6); Calcium (Corrected) 8.3 mg/dL (8.5-10.1); Carbon Dioxide 25.8 mMol/L (20.0-31.0); Chloride 96 mMol/L (98-107); Creatinine (Component) 3.8 mg/dL (0.6-1.3); Estimated Creatinine Clearance 31.6 mL/min (>60); Globulin 2.4 gm/dL (2.3-3.5); Glucose 122 mg/dL (74-106); Osmolality,Calculated 277 (275-295); Sodium 131 mMol/L (136-145); Total Protein 5.7 gm/dL (5.7-8.2); eGFR 17 See Note
[2024-08-13 21:58] LABS: Base Excess -1 (-3-3); HCO3 27 mEq/L (20-26); Inspired Oxygen, FIO2 85 %; O2 Saturation 100 % (91-98); PCO2 60 mmHg (32.0-48.0); PO2 201 mmHg (83-108); pH, Arterial 7.26 (7.35-7.45)
[2024-08-13 21:59] LABS: Allen Test Not Performed; Puncture Site Right Femoral
--- NOTE | 2024-08-13 22:06 | PC.RT ---
fio2 titrated to 60% ipap increased to 20 epap to 5 per abg results per DR. Crespo follow up with an abg in an hour, ve improved to 10-11 from 8.5.
[2024-08-14] VITALS (102 sets, daily range): BP systolic 82–171; BP diastolic 42–101; PULSE 81–128; RESP 14–30; TEMP 36.2–36.9; O2SAT 93–100
[2024-08-14] LABS: Base Excess -1 (-3-3); HCO3 27 mEq/L (20-26); Inspired Oxygen, FIO2 60 %; O2 Saturation 100 % (91-98); PCO2 59 mmHg (32.0-48.0); PO2 151 mmHg (83-108); pH, Arterial 7.26 (7.35-7.45)
[2024-08-14 00:01] LABS: Allen Test Not Performed; Puncture Site Arterial Line
[2024-08-14] MEDS: LEVALBUTEROL RT 0.63 MG/3 ML NEBU INH ×4 (00:05→18:00)
[2024-08-14] MEDS: AMIODARONE 360 MG IVPB 360 MG/200 ML BAG 16.667 MG IV (01:04)
--- NOTE | 2024-08-14 01:12 | XR_ITS ---
Examination: AP chest single view Technique one AP portable semiupright chest single view Exam date and time: August 14, 2024 [id number] hrs. Comparison August 11, 2024 Indications: Hypoxic respiratory failure, postintubation, extensive pneumonia on chest film August 11, 2024 Findings: Extensive bilateral pneumonia Consider associated heart failure with cardiomegaly and prominent vascular congestion Right internal jugular central line tip SVC satisfactory position Tracheal tube tip 3.7 cm above ioana Impression: Extensive bilateral pneumonia Associated heart failure
[2024-08-14] MEDS: ETOMIDATE INJ 2 MG/ML VIAL 10 ML 20 MG IVP (01:13)
[2024-08-14] MEDS: ROCURONIUM INJ 10 MG/ML VIAL 10 ML 70 MG IVP (01:14)
--- NOTE | 2024-08-14 01:19 | ESOP_ITS ---
Procedures Procedure Date / Time 08/14/24 0115 Arterial Line Size (Gauge): 20 Intubation Indication(s): other (Acute on chronic hypercapnic respiratory failure) Informed consent obtained: from patient and implied Time out done, and the following verified: correct patient, side and site, procedure and patient position Sedative: etomidate Mg given: 20 Paralytic: rocuronium Mg given: 70 Laryngoscope: fiber optic video scope Assist device used: other (stylet) ET tube size: 8 ET tube uncuffed: No Tube secured depth (cm): 25 Tube secured location: teeth Tube placement confirmation: visualized tube passing through cords, equal breath sounds bilaterally and confirmation by capnometry Patient tolerated procedure: well EBL(ml): 0 Intubation complications: none Additional comments: Patient was preoxygenated with BiPAP for 15 minutes prior to procedure until his SpO2 reached 100%. A time out was performed. My hands were washed immediately prior to the procedure. I wore a surgical cap, mask with protective eyewear, gown and gloves throughout the procedure. The patient was placed on a clinical research monitor including continuous pulse oximetry. Sedative, etomidate 20 Mg IV was given followed by paralytic rocuronium 70 Mg IV , BiPAP was removed and patient placed on [id number]. Fiberoptic video laryngoscope was then subsequently passed and vocal cords visualized, an 8 [place] ET tube was subsequently passed through the cords via direct visualization and attached to capnography. Capnography changed from blue to yellow, breath sounds were auscultated bilaterally on both lung bates and ET tube was secured at 25 cm at teeth. Post intubation chest x-ray was ordered and currently pending at this time. Entire procedure was supervised and witnessed by my attending Dr. Good. Plan of care discussed with Attending Dr. Florentino Corbett MD PGY 1
[2024-08-14] MEDS: fentaNYL 2,500 MCG/250 ML BAG 2,500 MCG/250 ML BAG IV (01:20)
[2024-08-14] MEDS: PROPOFOL 1,000 MG IVPB 1,000 MG/100 ML VIAL 4.845 MG IV (01:20)
--- NOTE | 2024-08-14 01:33 | XR_ITS ---
Examination: Abdomen AP single view Technique: AP portable supine abdomen, single view Exam date and time: August 14, 2024 0134 hrs. Indications: Post orogastric tube placement Findings: Orogastric tube tip in the stomach satisfactory position No air distended stomach No free air Opacity of both lung bases Impression: Orogastric tube tip in the stomach satisfactory position
[2024-08-14 02:56] LABS: Base Excess 0 (-3-3); HCO3 25 mEq/L (20-26); Inspired Oxygen, FIO2 80 %; O2 Saturation 101 % (91-98); PCO2 41 mmHg (32.0-48.0); PO2 292 mmHg (83-108); Puncture Site Arterial Line; pH, Arterial 7.39 (7.35-7.45)
[2024-08-14 02:57] LABS: Allen Test Not Performed
--- NOTE | 2024-08-14 03:03 | PC.RT ---
DR. zee made aware of abg results fio2 titrated to 40%.
[2024-08-14 05:30] LABS: Basophils % (Auto) 0 % (0-2.5); Eosinophils % (Auto) 0 % (0-10); Immature Granulocytes % (Auto) 1 % (0-0); Immature Granulocytes Auto 0.08 Thou/mm3 (0.00-0.00); Lymphocytes # (Auto) 1.1 Thou/mm3 (1.0-4.8); Lymphocytes % (Auto) 10 % (10-50); Mean Corpuscular HGB Conc 33.3 g/dl (31.0-37.0); Mean Corpuscular Hemoglobin 27.2 pg (25.0-35.0); Mean Corpuscular Volume 82 fL (80-100); Monocytes # (Auto) 0.5 Thou/mm3 (0.0-0.8); Monocytes % (Auto) 4 % (0-12); Neutrophils # (Auto) 9.6 Thou/mm3 (1.8-7.7); Neutrophils % (Auto) 85 % (37-80); Nucleated Red Blood Cell # 0.03 Thou/mm3 (0.00-0.00); Nucleated Red Blood Cell % 0 /100 WBC (0); Platelet Count 158 Thou/mm3 (140-440); RDW Standard Deviation 44.1 fL (35.1-43.9); Red Blood Count 3.68 Miln/mm3 (4.50-5.90); White Blood Count 11.3 Thou/mm3 (3.8-10.6)
[2024-08-14] MEDS: MIDODRINE 5 MG TABLET PO (05:32)
[2024-08-14] MEDS: AMPICILLIN/SULBAC INJ 3 GM in SODIUM CHLORIDE 0.9% 100 ML IV ×4 (05:35→17:31)
[2024-08-14] MEDS: Heparin/D5w 25K 250 ML Ivpb 25,000 UNIT/250 ML BAG 11.277 UNIT IV (06:13)
--- NOTE | 2024-08-14 06:15 | PC.NURSE ---
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
[2024-08-14 06:31] LABS: Alanine Aminotransferase 752 U/L (10-49); Albumin, Serum 3.3 gm/dL (3.4-4.8); Albumin/Globulin Ratio 1.3 (1.2-2.2); Alkaline Phosphatase 42 U/L (46-116); Anion Gap 12 (7-16); Aspartate Amino Transferase 778 U/L (0-34); BUN/Creatinine Ratio 15 Ratio (12-20); Bilirubin,Total 1.4 mg/dL (0.3-1.2); Blood Urea Nitrogen 58 mg/dL (9-23); Calcium 7.8 mg/dL (8.3-10.6); Calcium (Corrected) 8.4 mg/dL (8.5-10.1); Chloride 95 mMol/L (98-107); Estimated Creatinine Clearance 30.4 mL/min (>60); Globulin 2.5 gm/dL (2.3-3.5); Glucose 86 mg/dL (74-106); Magnesium 2.2 mg/dL (1.6-2.6); Osmolality,Calculated 277 (275-295); Phosphorous 4.1 mg/dL (2.4-5.1); Potassium 3.8 mMol/L (3.4-5.1); Sodium 131 mMol/L (136-145); Total Protein 5.8 gm/dL (5.7-8.2); eGFR 16 See Note
[2024-08-14 06:58] LABS: Partial Thromboplastin Time 58.7 Seconds (22.0-36.0)
[2024-08-14] MEDS: Norepinephrine/D5W 8mg/250ml 8 MG/250 ML BAG 15.141 MG IV (08:00)
--- NOTE | 2024-08-14 08:00 | PC.NURSE ---
ABRAHAN Blanco started Levophed.
--- NOTE | 2024-08-14 08:04 | ESPR_ITS ---
Documentation for date of: 08/14/24 Subjective Subjective Interval history: Andrew Bella is a 64-year-old male with a past medical history of hypertension, hyperlipidemia, CAD, insulin-dependent type 2 diabetes mellitus, CHF, A-fib, depression, and history of seizures who recently moved from [place] and initially presented to ED on 08/09 with dyspnea and productive cough with associated pleuritic chest pain, cough, wheezing, and weakness. Also noted to have bilateral lower extremity edema and orthopnea, but denied paroxysmal nocturnal dyspnea. In ED, vitals significant for temperature of 100.8 ?F and on room air. Labs showed BUN 29, 1.6, GFR 48, glucose 228, LDH 256, BNP 275, UA 4+ glucose, U tox negative. Influenza A positive. Patient subsequently started on Tamiflu as well as Lasix for possible CHF exacerbation. Throughout hospital course, on 08/10 patient has had 2 rapid responses very well for desaturation requiring BiPAP and IV steroids/antibiotics and the second for hypoxia with altered mentation, requiring intubation for airway protection prompting transfer to ICU for further care. Around time of intubation, ABG showed pH 6.97, pCO2 97. MAP noted to drop below 65 and was started on Levophed and vasopressin. Cardiology consulted for further evaluation of possible CHF exacerbation and A-fib. Although unable to determine baseline renal function, creatinine increased from 1.8 to 2.9 overnight and so nephrology was consulted. Given that patient is intubated, history obtained from chart review. 08/11: Patient seen and examined in ICU, intubated and undergoing cooling measures for fever of 103.1 ?F. Creatinine noted to jump from 1.8 to 2.9 overnight. Suspect acute tubular necrosis in setting of hypotension with MAP less than 65 mmHg noted on 08/10. Also associated increase in lactic acid from 2.2 to 4.6 as well as overnight increase in LFTs (AST 17 to 553 and AST from 10 to 54). Will follow-up on urine studies as well as renal ultrasound. 08/12: Patient seen and examined in ICU, intubated and ventilated. Labs and orders reviewed. Na 129, BUN 67, Cr steadily increasing to 4.0, Ca 8.2. LFTs remain elevated (AST 423, ALT 364). Produced less than 20 cc of urine overnight. Still pending urine studies. Vancomycin changed to linezolid, continuing azithromycin and Zosyn. CTA chest: Bilateral pneumonia with arts pattern. Repeat CXR showed worsening of pneumonia and ARDS. DC'd IV steroids and amlodipine. Vas-Cath placed for hemodialysis. 08/13: Patient seen and examined in ICU, inbutaed and ventilated. Labs and orderse reviewed. Na stable at 129, BUN 66 and Cr again increased from 4.0 to 4.2. LFTs continue to uptrend (AST 688, ALT 597). Patient was given bumex x1 yesterday but had minimal urine output and so he underwent a session of dialysis for two hours with plans for hemodialysis again today. 08/14/2024 patient currently seen in ICU. Remains on the ventilator. Blood pressure 123/76, heart rate 105. On pressors. WBC 11.3, hemoglobin 10, platelets 158. Sodium 131, potassium 4, BUN 58, creatinine 4, total bilirubin 1.4, AST was 778, ALT 752, alk phos 42, total protein 5.8, ammonia level 18, albumin 3.3. Abdominal x-ray showed no air in the distended stomach. Chest x- ray showed extensive bilateral pneumonia with fluid overload. Review of Systems Review of Systems ROS Unobtainable: due to endotracheal tube Exam Vital Signs Temp Pulse Resp BP Pulse Ox O2 Del Method O2 Flow Rate 36.7 C 93 28 H 90/51 L 99 Mechanical Ventilation 15 08/14/24 07:16 08/14/24 08:00 08/14/24 07:16 08/14/24 08:00 08/14/24 07:16 08/14/24 01:16 08/13/24 19:36 FiO2 35 08/14/24 07:16 Narrative Exam GENERAL APPEARANCE: Patient currently seen in ICU. Orotracheal intubation noted. CARDIOVASCULAR: Heart regular, no murmurs, tachycardia LUNGS/CHEST: Bilateral rhonchi noted ABDOMEN: Distended, bowel sounds present EXTREMITIES: Significant edema noted in the extremities. SKIN: Skin exam normal without any rashes MUSCULOSKELETAL: In bed NEUROLOGICAL : Intubated, sedated Objective Labs 08/14/24 04:18 08/14/24 18:18 Labs: Laboratory Results - last 24 hr 08/13/24 08/13/24 08/13/24 12:50 20:14 20:21 WBC RBC Hgb Hct MCV MCH MCHC RDW Std Deviation Plt Count Neut % (Auto) Lymph % (Auto) [facility] % (Auto) Eos % (Auto) Baso % (Auto) Neut # (Auto) Lymph # (Auto) [facility] # (Auto) Eos # (Auto) Baso # (Auto) Immature Gran # (Auto) Absolute Nucleated RBC Immature Gran % Nucleated RBC % APTT 68.8 H D Puncture Site Arterial Line ABG pH 7.26 L ABG pCO2 61 H D ABG pO2 84 ABG HCO3 27 H ABG O2 Saturation 96 ABG Base Excess -1 FiO2 100 Sodium 131 L Potassium 4.0 Chloride 96 L Carbon Dioxide 25.8 Anion Gap 9 BUN 52 H Creatinine 3.8 H Estim Creat Clear Calc 31.6 L eGFR 17 L BUN/Creatinine Ratio 14 Glucose 122 H D Calculated Osmolality 277 Calcium 7.7 L Corrected Calcium 8.3 L Phosphorus Magnesium Total Bilirubin 1.4 H D AST 743 H* ALT 746 H* Alkaline Phosphatase 51 D Ammonia 37 H Total Protein 5.7 Albumin 3.3 L Globulin 2.4 Albumin/Globulin Ratio 1.4 08/13/24 08/13/24 08/14/24 21:45 23:54 02:49 WBC RBC Hgb Hct MCV MCH MCHC RDW Std Deviation Plt Count Neut % (Auto) Lymph % (Auto) [facility] % (Auto) Eos % (Auto) Baso % (Auto) Neut # (Auto) Lymph # (Auto) [facility] # (Auto) Eos # (Auto) Baso # (Auto) Immature Gran # (Auto) Absolute Nucleated RBC Immature Gran % Nucleated RBC % APTT Puncture Site Right Femoral Arterial Line Arterial Line ABG pH 7.26 L 7.26 L 7.39 D ABG pCO2 60 H 59 H 41 D ABG pO2 201 H D 151 H D 292 H D ABG HCO3 27 H 27 H 25 ABG O2 Saturation 100 H 100 H 101 H ABG Base Excess -1 -1 0 FiO2 85 60 80 Sodium Potassium Chloride Carbon Dioxide Anion Gap BUN Creatinine Estim Creat Clear Calc eGFR BUN/Creatinine Ratio Glucose Calculated Osmolality Calcium Corrected Calcium Phosphorus Magnesium Total Bilirubin AST ALT Alkaline Phosphatase Ammonia Total Protein Albumin Globulin Albumin/Globulin Ratio 08/14/24 08/14/24 04:18 06:20 WBC 11.3 H RBC 3.68 L Hgb 10.0 L Hct 30.0 L MCV 82 MCH 27.2 MCHC 33.3 RDW Std Deviation 44.1 H Plt Count 158 Neut % (Auto) 85 H Lymph % (Auto) 10 [facility] % (Auto) 4 Eos % (Auto) 0 Baso % (Auto) 0 Neut # (Auto) 9.6 H Lymph # (Auto) 1.1 [facility] # (Auto) 0.5 Eos # (Auto) 0.0 Baso # (Auto) 0.0 Immature Gran # (Auto) 0.08 H Absolute Nucleated RBC 0.03 H Immature Gran % 1 H Nucleated RBC % 0 APTT 58.7 H D Puncture Site ABG pH ABG pCO2 ABG pO2 ABG HCO3 ABG O2 Saturation ABG Base Excess FiO2 Sodium 131 L Potassium 3.8 Chloride 95 L Carbon Dioxide 24.0 Anion Gap 12 BUN 58 H Creatinine 4.0 H Estim Creat Clear Calc 30.4 L eGFR 16 L BUN/Creatinine Ratio 15 Glucose 86 Calculated Osmolality 277 Calcium 7.8 L Corrected Calcium 8.4 L Phosphorus 4.1 Magnesium 2.2 Total Bilirubin 1.4 H AST 778 H* ALT 752 H* Alkaline Phosphatase 42 L Ammonia Total Protein 5.8 Albumin 3.3 L Globulin 2.5 Albumin/Globulin Ratio 1.3 ABG Interpretation ABG results: 08/10/24 08/10/24 08/10/24 11:34 13:55 16:46 ABG pH 7.21 L 6.97 L* D 6.99 L* ABG pCO2 49 H 95 H* D 78 H* D ABG pO2 60 L 64 L 41 L* D ABG HCO3 20 22 19 L ABG O2 Saturation 86 L 80 L 58 L ABG Base Excess -8 L -12 L -14 L VBG pH VBG pCO2 VBG pO2 VBG Base Excess 08/10/24 08/10/24 08/10/24 19:28 20:48 21:13 ABG pH 7.01 L* Cancelled 7.08 L* ABG pCO2 75 H* Cancelled 69 H ABG pO2 47 L* Cancelled 61 L ABG HCO3 19 L Cancelled 20 ABG O2 Saturation 72 L Cancelled 87 L ABG Base Excess -13 L Cancelled -11 L VBG pH VBG pCO2 VBG pO2 VBG Base Excess 08/11/24 08/11/24 08/11/24 00:34 04:08 14:56 ABG pH 7.14 L* 7.16 L* 7.17 L* ABG pCO2 60 H 54 H 50 H ABG pO2 83 D 114 H D 72 L D ABG HCO3 20 19 L 18 L ABG O2 Saturation 96 99 H 93 ABG Base Excess -10 L -10 L -10 L VBG pH VBG pCO2 VBG pO2 VBG Base Excess 08/11/24 08/11/24 08/12/24 20:05 23:14 02:06 ABG pH 7.20 L 7.25 L 7.27 L ABG pCO2 55 H 49 H 50 H ABG pO2 82 L 93 90 ABG HCO3 21 22 23 ABG O2 Saturation 96 98 98 ABG Base Excess -7 L -6 L -4 L VBG pH VBG pCO2 VBG pO2 VBG Base Excess 08/12/24 08/12/24 08/12/24 06:30 10:13 10:45 ABG pH 7.34 L 7.31 L ABG pCO2 41 42 ABG pO2 177 H D 134 H D ABG HCO3 22 21 ABG O2 Saturation 100 H 100 H ABG Base Excess -4 L -5 L VBG pH 7.30 L VBG pCO2 43 VBG pO2 53 VBG Base Excess -5 L 08/12/24 08/12/24 08/13/24 14:10 19:57 04:27 ABG pH 7.33 L 7.35 7.35 ABG pCO2 40 41 40 ABG pO2 114 H D 103 95 ABG HCO3 21 23 22 ABG O2 Saturation 99 H 99 H 98 ABG Base Excess -5 L -3 -4 L VBG pH VBG pCO2 VBG pO2 VBG Base Excess 08/13/24 08/13/24 08/13/24 20:14 21:45 23:54 ABG pH 7.26 L 7.26 L 7.26 L ABG pCO2 61 H D 60 H 59 H ABG pO2 84 201 H D 151 H D ABG HCO3 27 H 27 H 27 H ABG O2 Saturation 96 100 H 100 H ABG Base Excess -1 -1 -1 VBG pH VBG pCO2 VBG pO2 VBG Base Excess 08/14/24 02:49 ABG pH 7.39 D ABG pCO2 41 D ABG pO2 292 H D ABG HCO3 25 ABG O2 Saturation 101 H ABG Base Excess 0 VBG pH VBG pCO2 VBG pO2 VBG Base Excess Assessment & Plan Additional Assessment & Plan Additional Plan: Andrew Bella is a 64-year-old male with a past medical history of hypertension, hyperlipidemia, CAD, insulin-dependent type 2 diabetes mellitus, CHF, A-fib, depression, and history of seizures who initially presented to ED on 08/09 with dyspnea and productive cough with associated pleuritic chest pain, admitted for management of influenza PNA vs CHF exacerbation. Upgraded on 08/10 for airway protection requiring intubation and nephrology consulted in setting of acute kidney injury #Acute kidney injury // Acute tubular necrosis Renal US showed mild bilateral renal parenchymal scar formation without hydronephrosis. ? Patient currently seen on dialysis. Tolerating dialysis without any problems. Critical care time spent more than 35 minutes regarding plan of care and disease management. Hemodialysis for 3 hours, 2K, ultrafiltration 1-2 L, Epogen 6000, no heparin ordered. Plan of care discussed with the dialysis nurse. Please see dialysis flowsheet for further details. ? Avoid nephrotoxic agents ? Renally dose medications #Acute metabolic encephalopathy #History of seizures #Shock, distributive versus obstructive versus cardiogenic #HFpEF (EF 55 to 60%) #Atrial fibrillation #Elevated troponin #Transaminitis-worsening liver enzymes #Hypertension #Hyperlipidemia #CAD #Acute hypoxic/hypercapnic respiratory failure, secondary to #Influenza A pneumonia #COPD #Type 2 diabetes mellitus, insulin-dependent ? Continue management per ICU team. Currently on ventilator Procedures Arterial Line Size (Gauge): 20
[2024-08-14 09:12] LABS: Ammonia 18 uMol/L (11-32)
[2024-08-14 09:33] LABS: Creatine Kinase 165 U/L (34-171)
[2024-08-14] MEDS: OSELTAMIVIR 30 MG CAPSULE PO (09:55)
[2024-08-14] MEDS: PANTOPRAZOLE INJ 40 MG VIAL IVP (09:55)
[2024-08-14] MEDS: TAMSULOSIN HCL 0.4 MG CAPSULE PO (09:55)
[2024-08-14] MEDS: ASPIRIN EC 81 MG TABEC PO (09:55)
[2024-08-14] MEDS: HEPARIN SOD INJ 1000 UNIT/ML VIAL 10 ML 3000 UNIT INDWELLCAT (10:37)
--- NOTE | 2024-08-14 11:44 | ESPR_ITS ---
<Statement entered by Idalmis Murry MD - 08/15/24 10:23> TOTAL TIME: 45MINUTES ON DIRECT MEDICAL CARE, MANAGEMENT - COORDINATION AND COUNSELING > 50% OF TOTAL TIME I saw and evaluated the patient. I reviewed the resident?s note and agree with findings and plan as documented in the resident?s note. Patient was reintubated overnight for reduced level of consciousness and hypercapnic respiratory failure. It is unclear what happened as the events occurred overnight. He was said to be less responsive and a trial of noninvasive positive pressure ventilation did not seem to improve his ventilation. He is back on pressure support now with adequate end-tidal CO2 and tidal volumes. Level of consciousness remains awake but slow to respond and lethargic. He will be subjected to a prolonged pressure support trial prior to extubating again. Hold antipsychotics for now. Chest x-ray without significant change continue hemodialysis <Statement entered by Evens Min MD - 08/15/24 07:25> Senior Resident Attestation: I supervised/discussed management plan with editing internship physician Dr. Saez, and was involved in the care of this patient. I personally saw and examined the patient and discussed the assessment and plan with the entire medicine team, including my attending. I agree with the assessment and plan as documented. Patient's care was discussed with attending physician, Dr. Murry. Evens Min MD PGY-2. Documentation for date of: 08/14/24 Subjective Subjective Interval history: Mr. Bella is a 64-year-old male with a past medical history of hypertension, hyperlipidemia, CAD, diabetes mellitus type 2 insulin-dependent, CHF (unknown ejection fraction), atrial fibrillation, history of seizures, who presented to [facility] emergency room with acute increasing dyspnea and increasing cough. Patient stated that he has been having increasing pleuritic chest pain secondary to productive cough. Patient stated his cough is productive. Come into the emergency room today after being unable to reach the restroom because of increasing shortness of breath. Patient denied typically here with increasing wheezing. Patient denied any sick contacts. Increased perspiration. Increased orthopnea. Increasing shortness of breath. Negative paroxysmal nocturnal orthopnea. Positive for diarrhea. Increased bilateral swelling. History of BPH. History of depression. Patient was admitted on 08/09/2024 for CHF exacerbation and influenza A. Patient history of recent travel, recently moved to [place] from [place]. Patient had a rapid response called earlier this morning for low SpO2 84% despite 8 L of oxygen patient had increased work of breathing was tachypneic with circulation intact, patient was started on IV steroids, IV antibiotics. Eventually patient had another rapid response called for altered mental status, patient was noted to be unresponsive to verbal Kaman, responsive to only painful stimuli, patient is GCS of 7 was unable to protect airway, aspiration noted at bedside and patient was emergently intubated. At bedside patient noted to have pink frothy aspirate, high suspicion of pulmonary edema, patient upgraded to intensive care unit for further management. Patient eventually had a central line and arterial line placed. Attempt was made to reach out to patient's emergency contact, but none was available, eventually contacted patient's friend and primary decision maker Rodrigo Schneider. 08/11/24:Patient seen and examined at bedside, overnight significant improvement in patient's, PS this morning 7.16, pCO2 54, bicarb 19.9, high suspicion of underlying shock distributive due to aspiration pneumonia, ordered CTA chest along with CT abdomen pelvis, no known source for sepsis, CTA shows significant bilateral pneumonia with ARDS pattern, patient's antibiotic therapy optimized to Zosyn, linezolid and azithromycin. Patient is also on Tamiflu due to underlying influenza, methylprednisone discontinued, underlying respiratory disease from aspiration pneumonia, less likely COPD exacerbation, will continue with DuoNeb every 6 hours, will hold Lasix and discontinue vancomycin due to worsening renal function, high suspicion of acute tubular necrosis due to sepsis, elevated LFTs, high possibility of shock liver, patient's blood glucose significantly elevated started on insulin gtt. significant elevation of Pro-Donte noted today, nephrology was consulted due to worsening renal function. 08/12/24: Patient seen and examined at bedside, overnight patient developed atrial fibrillation, started on, patient was given Versed push x 1, insulin drip was discontinued around 3 AM due to normalization of blood glucose levels. Patient seen at bedside this morning, minimal urine output, was given Bumex 2 mg x 1, no urine output noted, discussed with embalmer/funeral director patient will receive dialysis treatment today goal to remove about 1 L fluid, patient's pressor regimen optimized to Levophed, phenylephrine and vasopressin, will decrease Levophed dose as patient has atrial fibrillation with RVR to minimize increase in heart rate due to Levophed. Patient was started on heparin drip due to underlying atrial fibrillation, will start on tube feeds today, started on 15 units Lantus and sliding scale insulin. Patient's heart rate not well- controlled on amiodarone drip, will consider digoxin 0.5 if needed. Potassium and magnesium optimized at more than 4 and more than 2 respectively. Will continue to monitor patient. 08/13/24: Patient seen and examined at bedside, no acute overnight events, patient was on fentanyl this morning, was started on pressure support this morning, marked improvement noted, marked improvement noted in patient's x-ray, patient requiring minimal pressor support, on low-dose Levophed this morning, RSBI around 18 on pressure support, NIF trial at bedside patient responded well, patient received dialysis treatment yesterday, had about 1 L fluid removed, patient's heart rate continues to remain elevated heart rate around 110-120, currently on amiodarone and heparin drip. Patient was extubated later in the day as sedation wore off, patient tolerating extubation well, patient's point of contact updated on patient's condition at bedside. Antibiotic therapy optimized to IV Unasyn, patient's LFTs continue to remain elevated, otherwise we will continue to maintain MAP of more than 65 on midodrine. Will continue to monitor patient. 08/14/24: Patient seen and examined at bedside, overnight patient was reintubated, started on sedation due to concern of altered mental status, staring spells and being unresponsive, did not respond to BiPAP. Patient is awake this morning responding to questions, alert, responding to questions, mean arterial pressure for patient is more than 65 is not needing pressor support to maintain a MAP of more than 65, currently on midodrine, will increase midodrine dose to 10 mg 3 times daily as patient is needing pressor support during dialysis. Patient did receive dialysis yesterday, had about 1 L fluid removed and is scheduled for dialysis again today. Will discontinue amiodarone due to possible hepatotoxicity, discontinued rosuvastatin, will hold topiramate and other psych medications. Patient is started on pressure support, plan to keep patient on pressure support for longer duration, monitor mentation and will consider extubation in a.m. Will continue antibiotic therapy with IV Unasyn, will continue to monitor patient. Exam Vital Signs Temp Pulse Resp BP Pulse Ox O2 Del Method O2 Flow Rate 97.1 F 110 H 20 111/74 97 Mechanical Ventilation 15 08/14/24 10:21 08/14/24 11:30 08/14/24 10:21 08/14/24 11:30 08/14/24 11:30 08/14/24 08:00 08/13/24 19:36 FiO2 35 08/14/24 10:43 Narrative Exam General: AAOx1, intubated, weaning off sedation dishelved, morbidly obese man, unkempt, bearded male HEENT: Moist mucous membranes, conjunctiva clear, EOMI,skin tags present, right IJ central line Cardiovascular: Pansystolic murmur ausculated upon mitral valve and R sternal border, no carotid bruit appreciated, radial pulses +2 bilat, irregularly irregular, Radial A-line present, bilat wrist restraints present Pulmonary: Crackles appreciated bilaterally, patient on mechanical ventilation, intubated GI: No ascites noted, bowel sounds present, however, abd obesity Extremities: venous stasis noted, unkempt feet, +2 bilat edema in LE Neuro: A&O x 1, responding to commands, responsive. Objective Labs 08/14/24 04:18 08/14/24 04:18 Labs: Laboratory Results - last 24 hr 08/13/24 08/13/24 08/13/24 12:50 20:14 20:21 WBC RBC Hgb Hct MCV MCH MCHC RDW Std Deviation Plt Count Neut % (Auto) Lymph % (Auto) Isabella % (Auto) Eos % (Auto) Baso % (Auto) Neut # (Auto) Lymph # (Auto) Isabella # (Auto) Eos # (Auto) Baso # (Auto) Immature Gran # (Auto) Absolute Nucleated RBC Immature Gran % Nucleated RBC % APTT 68.8 H D Puncture Site Arterial Line ABG pH 7.26 L ABG pCO2 61 H D ABG pO2 84 ABG HCO3 27 H ABG O2 Saturation 96 ABG Base Excess -1 FiO2 100 Sodium 131 L Potassium 4.0 Chloride 96 L Carbon Dioxide 25.8 Anion Gap 9 BUN 52 H Creatinine 3.8 H Estim Creat Clear Calc 31.6 L eGFR 17 L BUN/Creatinine Ratio 14 Glucose 122 H D Calculated Osmolality 277 Calcium 7.7 L Corrected Calcium 8.3 L Phosphorus Magnesium Total Bilirubin 1.4 H D AST 743 H* ALT 746 H* Alkaline Phosphatase 51 D Ammonia 37 H Total Creatine Kinase Total Protein 5.7 Albumin 3.3 L Globulin 2.4 Albumin/Globulin Ratio 1.4 08/13/24 08/13/24 08/14/24 21:45 23:54 02:49 WBC RBC Hgb Hct MCV MCH MCHC RDW Std Deviation Plt Count Neut % (Auto) Lymph % (Auto) Isabella % (Auto) Eos % (Auto) Baso % (Auto) Neut # (Auto) Lymph # (Auto) Isabella # (Auto) Eos # (Auto) Baso # (Auto) Immature Gran # (Auto) Absolute Nucleated RBC Immature Gran % Nucleated RBC % APTT Puncture Site Right Femoral Arterial Line Arterial Line ABG pH 7.26 L 7.26 L 7.39 D ABG pCO2 60 H 59 H 41 D ABG pO2 201 H D 151 H D 292 H D ABG HCO3 27 H 27 H 25 ABG O2 Saturation 100 H 100 H 101 H ABG Base Excess -1 -1 0 FiO2 85 60 80 Sodium Potassium Chloride Carbon Dioxide Anion Gap BUN Creatinine Estim Creat Clear Calc eGFR BUN/Creatinine Ratio Glucose Calculated Osmolality Calcium Corrected Calcium Phosphorus Magnesium Total Bilirubin AST ALT Alkaline Phosphatase Ammonia Total Creatine Kinase Total Protein Albumin Globulin Albumin/Globulin Ratio 08/14/24 08/14/24 08/14/24 04:18 06:20 08:35 WBC 11.3 H RBC 3.68 L Hgb 10.0 L Hct 30.0 L MCV 82 MCH 27.2 MCHC 33.3 RDW Std Deviation 44.1 H Plt Count 158 Neut % (Auto) 85 H Lymph % (Auto) 10 Isabella % (Auto) 4 Eos % (Auto) 0 Baso % (Auto) 0 Neut # (Auto) 9.6 H Lymph # (Auto) 1.1 Isabella # (Auto) 0.5 Eos # (Auto) 0.0 Baso # (Auto) 0.0 Immature Gran # (Auto) 0.08 H Absolute Nucleated RBC 0.03 H Immature Gran % 1 H Nucleated RBC % 0 APTT 58.7 H D Puncture Site ABG pH ABG pCO2 ABG pO2 ABG HCO3 ABG O2 Saturation ABG Base Excess FiO2 Sodium 131 L Potassium 3.8 Chloride 95 L Carbon Dioxide 24.0 Anion Gap 12 BUN 58 H Creatinine 4.0 H Estim Creat Clear Calc 30.4 L eGFR 16 L BUN/Creatinine Ratio 15 Glucose 86 Calculated Osmolality 277 Calcium 7.8 L Corrected Calcium 8.4 L Phosphorus 4.1 Magnesium 2.2 Total Bilirubin 1.4 H AST 778 H* ALT 752 H* Alkaline Phosphatase 42 L Ammonia 18 Total Creatine Kinase 165 Total Protein 5.8 Albumin 3.3 L Globulin 2.5 Albumin/Globulin Ratio 1.3 ABG Interpretation ABG results: 08/10/24 08/10/24 08/10/24 11:34 13:55 16:46 ABG pH 7.21 L 6.97 L* D 6.99 L* ABG pCO2 49 H 95 H* D 78 H* D ABG pO2 60 L 64 L 41 L* D ABG HCO3 20 22 19 L ABG O2 Saturation 86 L 80 L 58 L ABG Base Excess -8 L -12 L -14 L VBG pH VBG pCO2 VBG pO2 VBG Base Excess 08/10/24 08/10/24 08/10/24 19:28 20:48 21:13 ABG pH 7.01 L* Cancelled 7.08 L* ABG pCO2 75 H* Cancelled 69 H ABG pO2 47 L* Cancelled 61 L ABG HCO3 19 L Cancelled 20 ABG O2 Saturation 72 L Cancelled 87 L ABG Base Excess -13 L Cancelled -11 L VBG pH VBG pCO2 VBG pO2 VBG Base Excess 08/11/24 08/11/24 08/11/24 00:34 04:08 14:56 ABG pH 7.14 L* 7.16 L* 7.17 L* ABG pCO2 60 H 54 H 50 H ABG pO2 83 D 114 H D 72 L D ABG HCO3 20 19 L 18 L ABG O2 Saturation 96 99 H 93 ABG Base Excess -10 L -10 L -10 L VBG pH VBG pCO2 VBG pO2 VBG Base Excess 08/11/24 08/11/24 08/12/24 20:05 23:14 02:06 ABG pH 7.20 L 7.25 L 7.27 L ABG pCO2 55 H 49 H 50 H ABG pO2 82 L 93 90 ABG HCO3 21 22 23 ABG O2 Saturation 96 98 98 ABG Base Excess -7 L -6 L -4 L VBG pH VBG pCO2 VBG pO2 VBG Base Excess 08/12/24 08/12/2425 06:30 10:13 10:45 ABG pH 7.34 L 7.31 L ABG pCO2 41 42 ABG pO2 177 H D 134 H D ABG HCO3 22 21 ABG O2 Saturation 100 H 100 H ABG Base Excess -4 L -5 L VBG pH 7.30 L VBG pCO2 43 VBG pO2 53 VBG Base Excess -5 L 08/12/24 08/12/24 08/13/24 14:10 19:57 04:27 ABG pH 7.33 L 7.35 7.35 ABG pCO2 40 41 40 ABG pO2 114 H D 103 95 ABG HCO3 21 23 22 ABG O2 Saturation 99 H 99 H 98 ABG Base Excess -5 L -3 -4 L VBG pH VBG pCO2 VBG pO2 VBG Base Excess 08/13/24 08/13/24 08/13/24 20:14 21:45 23:54 ABG pH 7.26 L 7.26 L 7.26 L ABG pCO2 61 H D 60 H 59 H ABG pO2 84 201 H D 151 H D ABG HCO3 27 H 27 H 27 H ABG O2 Saturation 96 100 H 100 H ABG Base Excess -1 -1 -1 VBG pH VBG pCO2 VBG pO2 VBG Base Excess 08/14/24 02:49 ABG pH 7.39 D ABG pCO2 41 D ABG pO2 292 H D ABG HCO3 25 ABG O2 Saturation 101 H ABG Base Excess 0 VBG pH VBG pCO2 VBG pO2 VBG Base Excess Quality Measures Quality Measures none Assessment & Plan Assessment Current Active Medications: Generic Name Dose Route Start Last Admin Trade Name Korin PRN Reason Stop Dose Admin Acetaminophen 650 mg 08/11/24 08:37 Acetaminophen 325 Mg Tablet PO 09/10/24 05:56 Q6HR PRN FEVER >101 Aspirin 81 mg 08/11/24 09:00 08/14/24 09:55 Aspirin Ec 81 Mg Tabec PO 09/10/24 08:59 81 mg QDAY ASHWIN Administration Rosuvastatin 20 Mg 0 ea 08/09/24 21:00 08/13/24 22:47 PO 09/08/24 20:59 Not Given HS ASHWIN Dextrose 25 ml 08/09/24 15:31 Dextrose 50%-Water Inj 50 Ml Syringe IV 09/08/24 15:30 Q15MIN PRN BG 50-70 responsive npo pt Dextrose 50 ml 08/09/24 15:31 08/12/24 04:24 Dextrose 50%-Water Inj 50 Ml Syringe IV 09/08/24 15:30 50 ml Q15MIN PRN Administration BG <50 OR BG <70 & pt unresponsive Glucagon 1 mg 08/09/24 15:31 Glucagon Inj 1 Mg Vial IM Q15MIN PRN BG <70, and no IV access Heparin Sodium (Porcine) 3,000 unit 08/12/24 15:11 08/14/24 10:37 Heparin Sod Inj 1000 Unit/Ml Vial 10 Ml INDWELLCAT 08/26/24 15:10 3,000 unit PRN PRN Administration DIALYSIS Heparin Sodium/Dextrose 25,000 unit in 250 mls @ 17.721 mls/hr 08/12/24 14:30 08/14/24 10:06 Heparin In D5w Ivpb IV 08/26/24 14:29 Not Given .Q14H7M ASHWIN Protocol 11 UNITS/KG/HR Albumin Human 25 gm in 100 mls @ 100 mls/min 08/12/24 15:11 Albuminar-25 Ivpb IV PRN PRN DIALYSIS Ampicillin Sodium/Sulbactam 100 mls @ 200 mls/hr 08/13/24 12:00 08/14/24 05:35 Sodium 3 gm/ Sodium Chloride IV 08/20/24 11:59 200 mls/hr Q6HR ASHWIN Administration Norepinephrine/Dextrose 8 mg in 250 mls @ 15.141 mls/hr 08/13/24 17:09 08/14/24 10:06 Levophed In D5w 8mg/250ml IV 09/12/24 17:08 0 mcg/kg/min .[id number] PRN 0 mls/hr PER PROTOCOL Titration Protocol 0.05 MCG/KG/MIN Propofol 1,000 mg in 100 mls @ 4.845 mls/hr 08/14/24 00:46 08/14/24 08:00 Diprivan Ivpb IV 09/13/24 00:45 0 mcg/kg/min .[id number] PRN 0 mls/hr PER PROTOCOL Titration Protocol 5 MCG/KG/MIN Fentanyl Citrate 2,500 mcg in 250 mls @ 2.5 mls/hr 08/14/24 00:47 08/14/24 09:00 Sublimaze Inj 2,500 Mcg/250 Ml Bag IV 08/19/24 00:46 0 mcg/hr .Q24H PRN 0 mls/hr PER PROTOCOL Titration Protocol 25 MCG/HR Insulin Glargine 15 unit 08/12/24 09:30 08/14/24 08:59 Insulin Glargine (Lantus) 5 Unit/0.05 Ml (Per 5 Units) SC 09/11/24 09:29 Not Given QDAY ASHWIN Insulin Human Lispro 0 unit 08/13/24 10:41 08/14/24 09:56 Insulin Lispro (Admelog) 1 Unit/0.01 Ml Unit SC 09/11/24 09:59 Not Given Q4HR ASHWIN Protocol Levalbuterol HCl 0.63 mg 08/13/24 19:15 08/14/24 06:06 Levalbuterol Rt 0.63 Mg/3 Ml Nebu INH 09/12/24 19:14 0.63 mg Q6HRRT ASHWIN Administration Midodrine 5 mg 08/13/24 22:00 08/14/24 05:32 Midodrine 5 Mg Tablet PO 09/12/24 21:59 5 mg TID ASHWIN Administration Mirtazapine 45 mg 08/09/24 21:00 08/10/24 21:28 Mirtazapine 15 Mg Tablet PO 09/08/24 20:59 45 mg HS ASHWIN Administration Ondansetron HCl 4 mg 08/09/24 15:20 Ondansetron Inj 2 Mg/Ml Inj 2 Ml IV 09/08/24 15:19 Q6H PRN NAUSEA OR VOMITING Protocol Pantoprazole Sodium 40 mg 08/09/24 15:30 08/14/24 09:55 Pantoprazole Inj 40 Mg Vial IVP 09/08/24 15:29 40 mg QDAY ASHWIN Administration Paroxetine HCl 20 mg 08/14/24 21:00 Paroxetine Hcl 10 Mg Tablet PO 09/13/24 20:59 HS ASHWIN Pharmacy Consult 1 each 08/11/24 20:59 Pharmacy Renal Dose Adjustment 1 Ea XX 09/10/24 20:58 PRN PRN CONSULT Risperidone 3 mg 08/14/24 21:00 Risperidone 1 Mg Tablet PO 09/13/24 20:59 HS ASHWIN Tamsulosin HCl 0.4 mg 08/09/24 16:00 08/14/24 09:55 Tamsulosin Hcl 0.4 Mg Capsule PO 09/08/24 15:59 0.4 mg QDAY ASHWIN Administration Topiramate 50 mg 08/09/24 21:00 08/13/24 22:46 Topiramate 25 Mg Tablet PO 09/08/24 20:59 Not Given HS ASHWIN Plan Assessment and Plan Summary: Mr. Bella is a 64-year-old male with past medical history of hypertension, hyperlipidemia, coronary artery disease, type diabetes mellitus insulin-dependent, CHF, atrial fibrillation, history of seizures who was admitted to [facility] for management of CHF exacerbation and influenza A. Patient upgraded to ICU after emergent intubation post worsening of mentation and bedside aspiration with inability to protect airway. Neurological #Acute metabolic encephalopathy Multifactorial: Acute hypoxic/hypercapnic respiratory failure, underlying acidosis, underlying sepsis, polypharmacy Diagnostic workup: Patient had altered mental status, unable to protect airway, ABG pH 6.97, pCO2 95, pO2 64 Home medication includes risperidone 6 mg at bedtime, mirtazapine 45 mg at bedtime, and paroxetine 40 mg at bedtime for depression Treatment: -Patient intubated started on mechanical ventilation -Correct underlying acidosis -Continue IV antibiotics -Will hold risperidone, mirtazapine and paroxetine -Discontinued fentanyl and propofol Follow-up: -Reorient frequently -Will treat underlying etiology #History of seizures Patient has a past medical history of seizures, last seizure was several years ago and patient cannot recall but has been stable. Home medication topiramate 50 mg HS. Differential diagnosis: Low suspicion of seizure, no seizure-like activity noted Diagnostic workup: Will monitor for seizures/seizure-like activity Treatment: -Will hold topiramate 50 mg at bedtime, considering patient's altered mental status. Cardiology #Shock Differential diagnosis: Distributive (septic shock due to aspiration pneumonia) ruled out obstructive shock (pulmonary embolism) and cardiogenic shock Diagnostic workup: Chest CTA significant for bilateral pneumonia and ARDS, ruled out PE Patient is influenza A positive, significant aspiration noted bedside, suspicion of underlying aspiration pneumonia Chest x-ray significant for interval severe bilateral pneumonia Patient does have history of coronary artery disease, EKG showed no ST elevation, mild troponin elevation noted, Bedside echo shows good contractility, noted on cardiac Elevated Pro-Donte to 211.93 Patient was given Zosyn(08/10-08/13) , azithromycin, (08/10-08/12) linezolid (08/11-08/13) vancomycin (08/10-08/11), Tamiflu (08/09-08/14) D/Koby Vasopresin, levophed, phenylepherine Treatment: -Started on midodrine 10 TID -Continue Unasyn (08/13- Follow-up: -Monitor for fevers, vitals closely #Congestive heart failure, HFpEF EF 55 to 60% # Mild aortic stenosis, mitral stenosis Differential diagnosis: Systolic versus diastolic heart failure Diagnostic workup: Patient complained of dyspnea at baseline, orthopnea on admission, 2+ leg edema bilaterally just below the knees, BNP 275 Repeat 618 Patient on Lasix at home, last ejection fraction unknown, echo done during this hospitalization Echo significant for Normal LV size and function. Mild LVH. Estimated EF 55-60%. Cannot determine diastolic function due to AFib. Mildly dilated RV and normal RV function. Could not visualize TR or tricuspid valve well. Unable to estimate RVSP and PAH. All valves poorly visualized. Mild AV stenosis, max gradient 33mmHg, vmax 2.8m/s. Mild AI and Mild AI IVC dilated Treatment: -Patient received 80 mg Lasix BID (08/10), patient was given Bumex 2 mg x 1 -No urine output noted with Bumex, will schedule for dialysis -Consulted cardiology, appreciate recommendations -Patient received dialysis 08/13, 1 L removed, 08/14, 1 L removed Follow-up: -Monitor urine output -Scheduled for dialysis today, will follow-up #Atrial fibrillation with rapid ventricular response Differential diagnosis: Patient has history of A-fib currently with RVR Diagnostic workup: EKG shows atrial fibrillation, irregular rate noted on telemetry at bedside Treatment: -Continue heparin drip -Will consider digoxin for rate control if needed -Discontinued amiodarone due to concern of hepatotoxicity, will monitor heart rate Follow-up: -Telemonitoring #Demand Ischemia Differential diagnosis: Demand Ischemia, NSTEMI type 1 ruled out Diagnostic workup: EKG negative for ST elevation Serial troponins noted to be elevated Troponins mildly elevated, troponin peak at 0.517, repeat EKG negative Treatment/Follow-up: -Will consider EKG, continue quality assurance monitor chassis #Hypertension #Hyperlipidemia #History of coronary artery disease Has a past medical history of hyperlipidemia with a previous history of NH approximately 5 years ago. Patient takes rosuvastatin 20 mg at bedtime. Patient has a past medical history of hypertension on losartan. Patient started on amlodipine 5 mg due to ARIANA during this hospitalization, will hold in setting of shock. Pulmonary #Acute hypoxic/hypercapnic respiratory failure secondary to #Influenza A #Aspiration pneumonia, ARDS #COPD Differential diagnosis: Aspiration pneumonia, Influenza A, less likely COPD exacerbation, pulmonary embolism, pulmonary edema Diagnostic workup: Bedside influenza A positive, active aspiration event noted Worsening of chest x-ray noted CTA significant for bilateral pneumonia and ARDS pattern Patient has history of COPD, about 40 pack years Patient was given Zosyn(08/10-08/13) , azithromycin, (08/10-08/12) linezolid (08/11-08/13) vancomycin (08/10-08/11), Tamiflu (08/09-08/14) Treatment: -DuoNeb every 6 hours -Started on midodrine 10 TID -patient started on Unasyn (08/13- Follow-up: -Optimize mechanical ventilator settings -Follow blood gas as needed Gastrointestinal # Hepatitis 2/2 shock liver Differential diagnosis: Shock liver, low suspicion of venous congestion or fluid Diagnostic workup: AST 553, ALT 254, significant rise in LFTs noted Hep panel negative Treatment: Will continue to maintain mean arterial pressure Discontinued amiodarone, topiramate Continue to hold psychiatry medication Follow-up: Follow LFTs in AM Renal/Genitourinary #Acute kidney injury, likely secondary to ATN Differential diagnosis: Prerenal versus ATN in setting of ischemia Diagnostic workup: Elevated creatinine 1.6 on admission likely reflecting an ARIANA. Baseline unknown. Patient was not given fluids in setting of possible CHF exacerbation Patient received dialysis 08/13, 1 L removed, 08/14 1 L removed Treatment: -Patient scheduled for dialysis today -Will monitor renal function -Consulted pharmacy to dose medications renally -Avoid nephrotoxic agents Follow-up: -Follow renal panel in a.m. Endocrine #Type 2 diabetes mellitus, insulin-dependent # Hyperglycemia Patient has a past medical history of diabetes mellitus type 2 Home medication include Lantus 12 units, Januvia (Sitagliptin), Jardiance (Empagliflozin), and Ozempic. Patient stated he has lost about 120 lbs. Diagnostic workup: Hemoglobin A1c 7.1 Treatment: -Started on Lantus 15 units daily, sliding scale lispro Follow-up: -Monitor fingerstick blood glucose every 6 hours -Goal fingerstick BG 140-180 Hematology #Leukocytosis Possibly due to underlying sepsis Infectious Disease #Influenza A #Pneumonia -See respiratory system for details Integumentary #Bilateral venous stasis Differential diagnosis: Chronic venous insufficiency Treatment: Wound care as needed DVT prophylaxis: Heparin GI prophylaxis: Protonix Diet: N.p.o. Lines: Peripheral IV, right IJ central line, right circumflex A-line, left femoral Vas-Cath Code status: Full code Catheter: [place] catheter, discontinued (08/10-08/13) Case discussed with Attending Dr. Murry and Dr. Min PGY2. Ju Saez PGY1 Disclaimer: This note was dictated by speech recognition. Minor errors in project crew worker may be present due to voice recognition software.
[2024-08-14] MEDS: MIDODRINE 5 MG TABLET 10 MG PO ×2 (14:24→21:52)
--- NOTE | 2024-08-14 17:41 | XR_ITS ---
Examination: Abdomen sonogram, Limited Date and time of exam: August 14, 2024 1911 hrs. Indications: Abdominal pain beginning this week Technique: Real-time moe scale transabdominal sonographic images of the upper abdomen obtained. Findings: Gallbladder sludge Gallbladder wall 0.3 cm Common bile duct 0.4 cm Pancreatic head 4.1 cm Liver 20.1 cm fatty infiltration no focal liver lesions Normal hepatopedal portal venous flow Normal hepatopedal portal venous flow Patent IVC Partial visualization right pleural fluid Impression: Gallbladder sludge Negative for cholelithiasis, negative for cholecystitis Enlarged pancreatic head 4.1 cm, consider MRCP follow-up to exclude pancreatic mass or pancreatitis Significant hepatomegaly fatty liver
[2024-08-14 18:16] LABS: Base Excess 0 (-3-3); HCO3 27 mEq/L (20-26); Inspired Oxygen, FIO2 35 %; O2 Saturation 100 % (91-98); PCO2 53 mmHg (32.0-48.0); PO2 204 mmHg (83-108); pH, Arterial 7.32 (7.35-7.45)
[2024-08-14 18:29] LABS: Puncture Site Arterial Line
[2024-08-14 18:30] LABS: Allen Test Not Performed
[2024-08-14 18:36] LABS: Magnesium 2.2 mg/dL (1.6-2.6)
--- NOTE | 2024-08-14 18:40 | PC.RT ---
fio2 titrated to 30% per abg results
--- NOTE | 2024-08-14 18:42 | PC.RT ---
pt changed to current ACVC settings vt 500, RR28, 5+ per abg results fio2 titrated to 30% DR. Mcbride made aware.
--- NOTE | 2024-08-14 20:00 | PD.IMPROG ---
Documentation for date of: 08/15/24 Subjective Subjective Interval history: Patient seen and examined at the bedside. Telemetry reviewed and patient is still in A-fib with RVR with rates around 100-120 bpm and increased up to 130s 140s when he was on BiPAP. Primary team did discontinue the amiodarone due to possible hepatotoxicity as the liver function tests were around 700. Also discontinued rosuvastatin and topiramate and other psych medications. Patient was extubated on 08/13/2024 evening and he did not respond well with BiPAP and patient is reintubated Initially needed IV pressors and sedation but was later changed to midodrine 10 mg 3 times daily. Recurrent atrial fibrillation with RVR recommend to restart the amiodarone 200 mg twice daily for now for better rate control and patient is hypotensive and cannot start any kind of culture blockers or beta-blockers. Can consider digoxin and if digoxin is to be started patient should receive renal dosing which includes total of 500 mcg which can be given as 250 mcg x 2 doses and then patient should be started on 125 mcg every other day. Keep potassium between 4 and 5 and magnesium greater than 2.0 at all times. Patient is still fluid overloaded significantly, nephrology has been on board and continue dialysis. IV diuresis held for now because of ARIANA and patient is some urine output. Recommend to continue to monitor on telemetry Exam Vital Signs Temp Pulse Resp BP Pulse Ox O2 Del Method O2 Flow Rate 97.5 F 106 H 28 H 109/66 99 Mechanical Ventilation 15 08/15/24 16:00 08/15/24 18:45 08/15/24 14:34 08/15/24 18:45 08/15/24 18:45 08/15/24 16:00 08/13/24 19:36 FiO2 35 08/15/24 16:00 Narrative Exam General: Morbidly obese male, dishelved,unkempt, bearded male. Still intubated HEENT: Moist mucous membranes, conjunctiva clear, EOMI,skin tags present Cardiovascular: Pansystolic murmur ausculated upon mitral valve and R sternal border, no carotid bruit appreciated, radial pulses +2 bilat, irregularly irregular, Pulmonary: coarse breath sounds bilaterally GI: No ascites noted, bowel sounds present, however, abd obesity Extremities: venous stasis noted, unkempt feet, 3+ bilat edema in LE, +1 edema bilat LE Neuro: AAOx1, no focal deficits Objective Labs 08/15/24 04:35 08/15/24 17:25 Labs: Laboratory Results - last 24 hr 08/15/24 08/15/24 08/15/24 04:35 06:30 11:50 WBC 11.9 H RBC 3.66 L Hgb 10.0 L Hct 29.7 L MCV 81 MCH 27.3 MCHC 33.7 RDW Std Deviation 45.1 H Plt Count 171 Neut % (Auto) 79 Lymph % (Auto) 12 [place] % (Auto) 7 Eos % (Auto) 1 Baso % (Auto) 0 Neut # (Auto) 9.4 H Lymph # (Auto) 1.4 [place] # (Auto) 0.8 Eos # (Auto) 0.1 Baso # (Auto) 0.0 Immature Gran # (Auto) 0.16 H Absolute Nucleated RBC 0.02 H Immature Gran % 1 H Nucleated RBC % 0 APTT 44.2 H D 52.4 H Puncture Site Arterial Line ABG pH 7.47 H D ABG pCO2 29 L D ABG pO2 193 H ABG HCO3 22 ABG O2 Saturation 99 H ABG Base Excess -1 FiO2 30 Sodium 133 L Potassium 3.8 Chloride 96 L Carbon Dioxide 23.4 Anion Gap 14 BUN 52 H Creatinine 4.3 H* Estim Creat Clear Calc 28.3 L eGFR 15 L BUN/Creatinine Ratio 12 Glucose 93 Calculated Osmolality 280 Calcium 8.3 Corrected Calcium 9.0 Phosphorus 3.8 Magnesium 2.3 Total Bilirubin 1.3 H AST 455 H ALT 669 H* Alkaline Phosphatase 46 Total Protein 5.6 L Albumin 3.1 L Globulin 2.5 Albumin/Globulin Ratio 1.2 08/15/24 17:25 WBC RBC Hgb Hct MCV MCH MCHC RDW Std Deviation Plt Count Neut % (Auto) Lymph % (Auto) [place] % (Auto) Eos % (Auto) Baso % (Auto) Neut # (Auto) Lymph # (Auto) [place] # (Auto) Eos # (Auto) Baso # (Auto) Immature Gran # (Auto) Absolute Nucleated RBC Immature Gran % Nucleated RBC % APTT Puncture Site ABG pH ABG pCO2 ABG pO2 ABG HCO3 ABG O2 Saturation ABG Base Excess FiO2 Sodium 134 L Potassium 4.1 Chloride 94 L Carbon Dioxide 24.8 Anion Gap 15 BUN 41 H Creatinine 3.7 H D Estim Creat Clear Calc 32.6 L eGFR 17 L BUN/Creatinine Ratio 11 L Glucose 137 H Calculated Osmolality 280 Calcium 8.2 L Corrected Calcium Phosphorus Magnesium Total Bilirubin AST ALT Alkaline Phosphatase Total Protein Albumin Globulin Albumin/Globulin Ratio ABG Interpretation ABG results: 08/10/24 08/10/24 08/10/24 11:34 13:55 16:46 ABG pH 7.21 L 6.97 L* D 6.99 L* ABG pCO2 49 H 95 H* D 78 H* D ABG pO2 60 L 64 L 41 L* D ABG HCO3 20 22 19 L ABG O2 Saturation 86 L 80 L 58 L ABG Base Excess -8 L -12 L -14 L VBG pH VBG pCO2 VBG pO2 VBG Base Excess 08/10/24 08/10/24 08/10/24 19:28 20:48 21:13 ABG pH 7.01 L* Cancelled 7.08 L* ABG pCO2 75 H* Cancelled 69 H ABG pO2 47 L* Cancelled 61 L ABG HCO3 19 L Cancelled 20 ABG O2 Saturation 72 L Cancelled 87 L ABG Base Excess -13 L Cancelled -11 L VBG pH VBG pCO2 VBG pO2 VBG Base Excess 08/11/24 08/11/24 08/11/24 00:34 04:08 14:56 ABG pH 7.14 L* 7.16 L* 7.17 L* ABG pCO2 60 H 54 H 50 H ABG pO2 83 D 114 H D 72 L D ABG HCO3 20 19 L 18 L ABG O2 Saturation 96 99 H 93 ABG Base Excess -10 L -10 L -10 L VBG pH VBG pCO2 VBG pO2 VBG Base Excess 08/11/24 08/11/24 08/12/24 20:05 23:14 02:06 ABG pH 7.20 L 7.25 L 7.27 L ABG pCO2 55 H 49 H 50 H ABG pO2 82 L 93 90 ABG HCO3 21 22 23 ABG O2 Saturation 96 98 98 ABG Base Excess -7 L -6 L -4 L VBG pH VBG pCO2 VBG pO2 VBG Base Excess 08/12/24 08/12/24 08/12/24 06:30 10:13 10:45 ABG pH 7.34 L 7.31 L ABG pCO2 41 42 ABG pO2 177 H D 134 H D ABG HCO3 22 21 ABG O2 Saturation 100 H 100 H ABG Base Excess -4 L -5 L VBG pH 7.30 L VBG pCO2 43 VBG pO2 53 VBG Base Excess -5 L 08/12/24 08/12/24 08/13/24 14:10 19:57 04:27 ABG pH 7.33 L 7.35 7.35 ABG pCO2 40 41 40 ABG pO2 114 H D 103 95 ABG HCO3 21 23 22 ABG O2 Saturation 99 H 99 H 98 ABG Base Excess -5 L -3 -4 L VBG pH VBG pCO2 VBG pO2 VBG Base Excess 08/13/24 08/13/24 08/13/24 20:14 21:45 23:54 ABG pH 7.26 L 7.26 L 7.26 L ABG pCO2 61 H D 60 H 59 H ABG pO2 84 201 H D 151 H D ABG HCO3 27 H 27 H 27 H ABG O2 Saturation 96 100 H 100 H ABG Base Excess -1 -1 -1 VBG pH VBG pCO2 VBG pO2 VBG Base Excess 08/14/24 08/14/24 08/15/24 02:49 18:04 06:30 ABG pH 7.39 D 7.32 L 7.47 H D ABG pCO2 41 D 53 H D 29 L D ABG pO2 292 H D 204 H D 193 H ABG HCO3 25 27 H 22 ABG O2 Saturation 101 H 100 H 99 H ABG Base Excess 0 0 -1 VBG pH VBG pCO2 VBG pO2 VBG Base Excess Assessment & Plan A&P Vaishali Morales is a 64 y/o male with past medical history of hypertension, hyperlipidemia, CAD, type 2 diabetes insulin-dependent, CHF, A-fib (on Eliquis 5mg twice daily), history of seizures who is currently admitted into the ICU for acute hypoxic hypercarbic respiratory failure requiring intubation and likely septic shock secondary to influenza A. #Septic shock secondary to #Influenza A #? Superimposed bacterial infection Influenza A positive Currently on levophed, vasopressin, phenylepiphrine Pt currently has A line at this time Blood cultures NG1D, sputum negative Plan: -Continue Tamiflu started for patient -Continue Zosyn -Treat infection to wean down pressors #Afib with RVR, on home Eliquis [id number] HAS-BLED: 1 Irregular and rate in the 120s needed AC:Has home Eliquis Plan: Telemetry reviewed and patient is still in A-fib with RVR with rates around 100-120 bpm and increased up to 130s 140s when he was on BiPAP. Primary team did discontinue the amiodarone due to possible hepatotoxicity as the liver function tests were around 700. Also discontinued rosuvastatin and topiramate and other psych medications. Patient was extubated on 08/13/2024 evening and he did not respond well with BiPAP and patient is reintubated Initially needed IV pressors and sedation but was later changed to midodrine 10 mg 3 times daily. Regarding atrial fibrillation with RVR recommend to restart the amiodarone 200 mg twice daily for now for better rate control and patient is hypotensive and cannot start any kind of culture blockers or beta-blockers. Can consider digoxin and if digoxin is to be started patient should receive renal dosing which includes total of 500 mcg which can be given as 250 mcg x 2 doses and then patient should be started on 125 mcg every other day. Keep potassium between 4 and 5 and magnesium greater than 2.0 at all times. Recommend to continue to monitor on telemetry #Hx of CAD #Acute exacerbation of HFpEF with diastolic dysfunction #NSTEMI type II, likely related to demand ischemia Echo shows EF 55-60%, normal LV, mild LVH, dilated RV, IVC dilated, AV stenosis Troponins have peaked Pt BUN/Cr 66 and 4.2 respectively, removed 1L dialysis yesterday which improved pt Plan: -Patient is still fluid overloaded significantly, nephrology has been on board and continue dialysis. -IV diuresis held for now because of ARIANA and patient has some urine output. -Resume ASA. Statin held due to the elevated LFTs. No beta-ninfa due to the hypotension #IDDM #Hyperlipidemia #Hypertension Total Cholesterol: 83 LDL:30 A1c 7.1 Plan: Holding BP meds as he is hypotensive and on pressors Resumed home Rosuvastatin Primary team to handle BG #Acute hypoxic hypercarbic respiratory failure #Respiratory acidosis #? hx of COPD #? OHS Likely multifactorial, could be also due to flash pulmonary edema due rapid changes However, this could also be due to infectious cause, OHS, COPD Extensive smoking history, pt is most likely has COPD On ventilator currently, will adjust settings and PEEP to bring down acidosis ABG pH: 7.35, PCO2 40 Plan: -Treat underlying infection -Pulmonary hygiene -Chest physiotherapy -ABGS -Consider levalbuterol considering afib hx #ARIANA, prerenal #Shock liver #History of depression #History of seizures #Normocytic Anemia #Mild Hyponatremia Hypo-osmolar, Hypervolemic Management of rest of the medical conditions as per primary team and other consultants. Thank you for the consult and allowing me to participate in the care of the patient. Cardiology will continue to follow. Nacho Yoon M.D. Interventional Cardiology Time Spent With Patient Time: Total time spent is greater than 50% in coordination of care (as documented) at patient's floor/unit and/or counseling patient: Procedures Arterial Line Size (Gauge): 20
[2024-08-15] VITALS (90 sets, daily range): BP systolic 88–160; BP diastolic 48–92; PULSE 82–143; RESP 11–40; TEMP 36.4–37.2; O2SAT 89–100; BMI 45.9
[2024-08-15] MEDS: AMPICILLIN/SULBAC INJ 3 GM in SODIUM CHLORIDE 0.9% 100 ML IV ×4 (00:19→17:28)
--- NOTE | 2024-08-15 05:00 | XR_ITS ---
Examination: AP chest single view Technique one AP portable semiupright chest single view Exam date and time: August 15, 2024 at 0453 hrs. Comparison August 13, 2024 Indications: Hypoxic respiratory failure, postintubation, extensive pneumonia ARDS pattern on chest imaging this week Findings: Extensive bilateral lung opacity Endotracheal tube tip 3.5 cm above ioana Right internal jugular central line tip SVC no pneumothorax The orogastric tube is in the stomach, the tip is below the level of the pelvis No pneumothorax Impression: Again noted significant bilateral pneumonia ARDS pattern
[2024-08-15 05:01] LABS: Basophils % (Auto) 0 % (0-2.5); Eosinophils # (Auto) 0.1 Thou/mm3 (0.0-0.5); Eosinophils % (Auto) 1 % (0-10); Hematocrit 29.7 % (41.0-53.0); Immature Granulocytes % (Auto) 1 % (0-0); Immature Granulocytes Auto 0.16 Thou/mm3 (0.00-0.00); Lymphocytes # (Auto) 1.4 Thou/mm3 (1.0-4.8); Lymphocytes % (Auto) 12 % (10-50); Mean Corpuscular HGB Conc 33.7 g/dl (31.0-37.0); Mean Corpuscular Hemoglobin 27.3 pg (25.0-35.0); Mean Corpuscular Volume 81 fL (80-100); Monocytes # (Auto) 0.8 Thou/mm3 (0.0-0.8); Monocytes % (Auto) 7 % (0-12); Neutrophils # (Auto) 9.4 Thou/mm3 (1.8-7.7); Neutrophils % (Auto) 79 % (37-80); Nucleated Red Blood Cell # 0.02 Thou/mm3 (0.00-0.00); Nucleated Red Blood Cell % 0 /100 WBC (0); Platelet Count 171 Thou/mm3 (140-440); RDW Standard Deviation 45.1 fL (35.1-43.9); Red Blood Count 3.66 Miln/mm3 (4.50-5.90); White Blood Count 11.9 Thou/mm3 (3.8-10.6)
[2024-08-15 05:20] LABS: Partial Thromboplastin Time 44.2 Seconds (22.0-36.0)
[2024-08-15] MEDS: HEPARIN SOD INJ 5000 UNIT/ML VIAL 4000 UNIT IV (05:53)
[2024-08-15] MEDS: Heparin/D5w 25K 250 ML Ivpb 25,000 UNIT/250 ML BAG 14.499 UNIT IV (05:57)
[2024-08-15] MEDS: MIDODRINE 5 MG TABLET 10 MG PO ×3 (05:59→21:57)
[2024-08-15 06:19] LABS: Alanine Aminotransferase 669 U/L (10-49); Albumin, Serum 3.1 gm/dL (3.4-4.8); Albumin/Globulin Ratio 1.2 (1.2-2.2); Alkaline Phosphatase 46 U/L (46-116); Anion Gap 14 (7-16); Aspartate Amino Transferase 455 U/L (0-34); BUN/Creatinine Ratio 12 Ratio (12-20); Bilirubin,Total 1.3 mg/dL (0.3-1.2); Blood Urea Nitrogen 52 mg/dL (9-23); Calcium 8.3 mg/dL (8.3-10.6); Carbon Dioxide 23.4 mMol/L (20.0-31.0); Chloride 96 mMol/L (98-107); Creatinine (Component) 4.3 mg/dL (0.6-1.3); Estimated Creatinine Clearance 28.3 mL/min (>60); Globulin 2.5 gm/dL (2.3-3.5); Glucose 93 mg/dL (74-106); Magnesium 2.3 mg/dL (1.6-2.6); Osmolality,Calculated 280 (275-295); Phosphorous 3.8 mg/dL (2.4-5.1); Potassium 3.8 mMol/L (3.4-5.1); Sodium 133 mMol/L (136-145); Total Protein 5.6 gm/dL (5.7-8.2); eGFR 15 See Note
[2024-08-15] MEDS: LEVALBUTEROL RT 0.63 MG/3 ML NEBU INH ×4 (06:19→18:00)
[2024-08-15 06:41] LABS: Base Excess -1 (-3-3); HCO3 22 mEq/L (20-26); Inspired Oxygen, FIO2 30 %; PCO2 29 mmHg (32.0-48.0); PO2 193 mmHg (83-108); pH, Arterial 7.47 (7.35-7.45)
[2024-08-15 06:42] LABS: Allen Test Not Performed; O2 Saturation 99 % (91-98); Puncture Site Arterial Line
--- NOTE | 2024-08-15 07:50 | PD.NEPHPROG ---
Documentation for date of: 08/15/24 Subjective Subjective Interval history: Andrew Bella is a 64-year-old male with a past medical history of hypertension, hyperlipidemia, CAD, insulin-dependent type 2 diabetes mellitus, CHF, A-fib, depression, and history of seizures who recently moved from [place] and initially presented to ED on 08/09 with dyspnea and productive cough with associated pleuritic chest pain, cough, wheezing, and weakness. Also noted to have bilateral lower extremity edema and orthopnea, but denied paroxysmal nocturnal dyspnea. In ED, vitals significant for temperature of 100.8 ?F and on room air. Labs showed BUN 29, 1.6, GFR 48, glucose 228, LDH 256, BNP 275, UA 4+ glucose, U tox negative. Influenza A positive. Patient subsequently started on Tamiflu as well as Lasix for possible CHF exacerbation. Throughout hospital course, on 08/10 patient has had 2 rapid responses very well for desaturation requiring BiPAP and IV steroids/antibiotics and the second for hypoxia with altered mentation, requiring intubation for airway protection prompting transfer to ICU for further care. Around time of intubation, ABG showed pH 6.97, pCO2 97. MAP noted to drop below 65 and was started on Levophed and vasopressin. Cardiology consulted for further evaluation of possible CHF exacerbation and A-fib. Although unable to determine baseline renal function, creatinine increased from 1.8 to 2.9 overnight and so nephrology was consulted. Given that patient is intubated, history obtained from chart review. 08/11: Patient seen and examined in ICU, intubated and undergoing cooling measures for fever of 103.1 ?F. Creatinine noted to jump from 1.8 to 2.9 overnight. Suspect acute tubular necrosis in setting of hypotension with MAP less than 65 mmHg noted on 08/10. Also associated increase in lactic acid from 2.2 to 4.6 as well as overnight increase in LFTs (AST 17 to 553 and AST from 10 to 54). Will follow-up on urine studies as well as renal ultrasound. 08/12: Patient seen and examined in ICU, intubated and ventilated. Labs and orders reviewed. Na 129, BUN 67, Cr steadily increasing to 4.0, Ca 8.2. LFTs remain elevated (AST 423, ALT 364). Produced less than 20 cc of urine overnight. Still pending urine studies. Vancomycin changed to linezolid, continuing azithromycin and Zosyn. CTA chest: Bilateral pneumonia with arts pattern. Repeat CXR showed worsening of pneumonia and ARDS. DC'd IV steroids and amlodipine. Vas-Cath placed for hemodialysis. 08/13: Patient seen and examined in ICU, inbutaed and ventilated. Labs and orderse reviewed. Na stable at 129, BUN 66 and Cr again increased from 4.0 to 4.2. LFTs continue to uptrend (AST 688, ALT 597). Patient was given bumex x1 yesterday but had minimal urine output and so he underwent a session of dialysis for two hours with plans for hemodialysis again today. 08/15/2024 patient currently seen in ICU. Remains on the ventilator. Blood sugar 123. Blood pressure 107/67, heart rate from 1 10-1 30. WBC 11.9, hemoglobin 10, platelets 171. ABG showing pH 7.47, pCO2 29, pO2 193, bicarbonate 22.Sodium 133, potassium 3.8, bicarbonate 23.4, BUN 52, creatinine 4.3, calcium 9, phosphorus 3.8, AST 455, ALT 669, total bilirubin 1.3, albumin 3.1 Chest x-ray showed extensive bilateral pneumonia with fluid overload. Patient is going to get extra session of dialysis today goal will be to increase his bicarbonate for compensation for respiratory acidosis. Review of Systems Review of Systems ROS Unobtainable: unobtainable due to medical condition and due to endotracheal tube Exam Vital Signs Temp Pulse Resp BP Pulse Ox O2 Del Method O2 Flow Rate 36.8 C 100 28 H 110/69 99 Mechanical Ventilation 15 08/14/24 20:00 08/15/24 06:20 08/15/24 06:20 08/15/24 06:20 08/15/24 06:20 08/14/24 16:00 08/13/24 19:36 FiO2 30 08/15/24 06:20 Narrative Exam GENERAL APPEARANCE: Patient currently seen in ICU. Orotracheal intubation noted. CARDIOVASCULAR: Heart regular, no murmurs, tachycardia LUNGS/CHEST: Bilateral rhonchi noted ABDOMEN: Distended, bowel sounds present EXTREMITIES: Significant edema noted in the extremities. SKIN: Skin exam normal without any rashes MUSCULOSKELETAL: In bed NEUROLOGICAL : Intubated, awake Objective Labs 08/15/24 04:35 08/15/24 17:25 Labs: Laboratory Results - last 24 hr 08/14/24 08/14/24 08/14/24 08:35 18:04 18:18 WBC RBC Hgb Hct MCV MCH MCHC RDW Std Deviation Plt Count Neut % (Auto) Lymph % (Auto) [place] % (Auto) Eos % (Auto) Baso % (Auto) Neut # (Auto) Lymph # (Auto) [place] # (Auto) Eos # (Auto) Baso # (Auto) Immature Gran # (Auto) Absolute Nucleated RBC Immature Gran % Nucleated RBC % APTT Puncture Site Arterial Line ABG pH 7.32 L ABG pCO2 53 H D ABG pO2 204 H D ABG HCO3 27 H ABG O2 Saturation 100 H ABG Base Excess 0 FiO2 35 Sodium Potassium 4.0 Chloride Carbon Dioxide Anion Gap BUN Creatinine Estim Creat Clear Calc eGFR BUN/Creatinine Ratio Glucose Calculated Osmolality Calcium Corrected Calcium Phosphorus Magnesium 2.2 Total Bilirubin AST ALT Alkaline Phosphatase Ammonia 18 Total Creatine Kinase 165 Total Protein Albumin Globulin Albumin/Globulin Ratio 08/15/24 08/15/24 04:35 06:30 WBC 11.9 H RBC 3.66 L Hgb 10.0 L Hct 29.7 L MCV 81 MCH 27.3 MCHC 33.7 RDW Std Deviation 45.1 H Plt Count 171 Neut % (Auto) 79 Lymph % (Auto) 12 [place] % (Auto) 7 Eos % (Auto) 1 Baso % (Auto) 0 Neut # (Auto) 9.4 H Lymph # (Auto) 1.4 [place] # (Auto) 0.8 Eos # (Auto) 0.1 Baso # (Auto) 0.0 Immature Gran # (Auto) 0.16 H Absolute Nucleated RBC 0.02 H Immature Gran % 1 H Nucleated RBC % 0 APTT 44.2 H D Puncture Site Arterial Line ABG pH 7.47 H D ABG pCO2 29 L D ABG pO2 193 H ABG HCO3 22 ABG O2 Saturation 99 H ABG Base Excess -1 FiO2 30 Sodium 133 L Potassium 3.8 Chloride 96 L Carbon Dioxide 23.4 Anion Gap 14 BUN 52 H Creatinine 4.3 H* Estim Creat Clear Calc 28.3 L eGFR 15 L BUN/Creatinine Ratio 12 Glucose 93 Calculated Osmolality 280 Calcium 8.3 Corrected Calcium 9.0 Phosphorus 3.8 Magnesium 2.3 Total Bilirubin 1.3 H AST 455 H ALT 669 H* Alkaline Phosphatase 46 Ammonia Total Creatine Kinase Total Protein 5.6 L Albumin 3.1 L Globulin 2.5 Albumin/Globulin Ratio 1.2 ABG Interpretation ABG results: 08/10/24 08/10/24 08/10/24 11:34 13:55 16:46 ABG pH 7.21 L 6.97 L* D 6.99 L* ABG pCO2 49 H 95 H* D 78 H* D ABG pO2 60 L 64 L 41 L* D ABG HCO3 20 22 19 L ABG O2 Saturation 86 L 80 L 58 L ABG Base Excess -8 L -12 L -14 L VBG pH VBG pCO2 VBG pO2 VBG Base Excess 08/10/24 08/10/24 08/10/24 19:28 20:48 21:13 ABG pH 7.01 L* Cancelled 7.08 L* ABG pCO2 75 H* Cancelled 69 H ABG pO2 47 L* Cancelled 61 L ABG HCO3 19 L Cancelled 20 ABG O2 Saturation 72 L Cancelled 87 L ABG Base Excess -13 L Cancelled -11 L VBG pH VBG pCO2 VBG pO2 VBG Base Excess 08/11/24 08/11/24 08/11/24 00:34 04:08 14:56 ABG pH 7.14 L* 7.16 L* 7.17 L* ABG pCO2 60 H 54 H 50 H ABG pO2 83 D 114 H D 72 L D ABG HCO3 20 19 L 18 L ABG O2 Saturation 96 99 H 93 ABG Base Excess -10 L -10 L -10 L VBG pH VBG pCO2 VBG pO2 VBG Base Excess 08/11/24 08/11/24 08/12/24 20:05 23:14 02:06 ABG pH 7.20 L 7.25 L 7.27 L ABG pCO2 55 H 49 H 50 H ABG pO2 82 L 93 90 ABG HCO3 21 22 23 ABG O2 Saturation 96 98 98 ABG Base Excess -7 L -6 L -4 L VBG pH VBG pCO2 VBG pO2 VBG Base Excess 08/12/24 08/12/24 08/12/24 06:30 10:13 10:45 ABG pH 7.34 L 7.31 L ABG pCO2 41 42 ABG pO2 177 H D 134 H D ABG HCO3 22 21 ABG O2 Saturation 100 H 100 H ABG Base Excess -4 L -5 L VBG pH 7.30 L VBG pCO2 43 VBG pO2 53 VBG Base Excess -5 L 08/12/24 08/12/24 08/13/24 14:10 19:57 04:27 ABG pH 7.33 L 7.35 7.35 ABG pCO2 40 41 40 ABG pO2 114 H D 103 95 ABG HCO3 21 23 22 ABG O2 Saturation 99 H 99 H 98 ABG Base Excess -5 L -3 -4 L VBG pH VBG pCO2 VBG pO2 VBG Base Excess 08/13/24 08/13/24 08/13/24 20:14 21:45 23:54 ABG pH 7.26 L 7.26 L 7.26 L ABG pCO2 61 H D 60 H 59 H ABG pO2 84 201 H D 151 H D ABG HCO3 27 H 27 H 27 H ABG O2 Saturation 96 100 H 100 H ABG Base Excess -1 -1 -1 VBG pH VBG pCO2 VBG pO2 VBG Base Excess 08/14/24 08/14/24 08/15/24 02:49 18:04 06:30 ABG pH 7.39 D 7.32 L 7.47 H D ABG pCO2 41 D 53 H D 29 L D ABG pO2 292 H D 204 H D 193 H ABG HCO3 25 27 H 22 ABG O2 Saturation 101 H 100 H 99 H ABG Base Excess 0 0 -1 VBG pH VBG pCO2 VBG pO2 VBG Base Excess Assessment & Plan Additional Assessment & Plan Additional Plan: Andrew Bella is a 64-year-old male with a past medical history of hypertension, hyperlipidemia, CAD, insulin-dependent type 2 diabetes mellitus, CHF, A-fib, depression, and history of seizures who initially presented to ED on 08/09 with dyspnea and productive cough with associated pleuritic chest pain, admitted for management of influenza PNA vs CHF exacerbation. Upgraded on 08/10 for airway protection requiring intubation and nephrology consulted in setting of acute kidney injury #Acute kidney injury // Acute tubular necrosis Renal US showed mild bilateral renal parenchymal scar formation without hydronephrosis. ? Patient on dialysis. Tolerating dialysis without any problems. On pressors. Critical care time spent more than 35 minutes regarding plan of care and disease management. Hemodialysis for 3 hours, 2K, ultrafiltration 1-2 L, Epogen 6000, no heparin ordered. Plan of care discussed with the dialysis nurse. Please see dialysis flowsheet for further details. ? Avoid nephrotoxic agents ? Renally dose medications #Acute metabolic encephalopathy #History of seizures #Shock, distributive versus obstructive versus cardiogenic #HFpEF (EF 55 to 60%) #Atrial fibrillation #Elevated troponin #Transaminitis-worsening liver enzymes #Hypertension #Hyperlipidemia #CAD #Acute hypoxic/hypercapnic respiratory failure, secondary to #Influenza A pneumonia #COPD #Type 2 diabetes mellitus, insulin-dependent ? Continue management per ICU team. Currently on ventilator Procedures Arterial Line Size (Gauge): 20
[2024-08-15] MEDS: PANTOPRAZOLE INJ 40 MG VIAL IVP (09:51)
[2024-08-15] MEDS: ASPIRIN EC 81 MG TABEC PO (09:51)
[2024-08-15] MEDS: DILTIAZEM INJ 5 MG/ML VIAL 5 ML 10 MG IV (09:56)
--- NOTE | 2024-08-15 10:02 | ESPR_ITS ---
<Statement entered by Idalmis Murry MD - 08/17/24 10:09> TOTAL TIME: 45MINUTES ON DIRECT MEDICAL CARE, MANAGEMENT - COORDINATION AND COUNSELING > 50% OF TOTAL TIME I saw and evaluated the patient. I reviewed the resident?s note and agree with findings and plan as documented in the resident?s note. intentionally left on PSV until serum HCO3 is higher in order to compensate for chronic hypoventilation (morbid obesity and possibly COPD). d/w nephrology to increase bicarb bath in dialysate <Statement entered by Evens Min MD - 08/15/24 21:13> Senior Resident Attestation: I supervised/discussed management plan with corporate strategy intern physician Dr. Saez, and was involved in the care of this patient. I personally saw and examined the patient and discussed the assessment and plan with the entire medicine team, including my attending. I agree with the assessment and plan as documented. Patient's care was discussed with attending physician, Dr. Murry. Evens Min MD PGY-2. Documentation for date of: 08/15/24 Subjective Subjective Interval history: Mr. Bella is a 64-year-old male with a past medical history of hypertension, hyperlipidemia, CAD, diabetes mellitus type 2 insulin-dependent, CHF (unknown ejection fraction), atrial fibrillation, history of seizures, who presented to [facility] emergency room with acute increasing dyspnea and increasing cough. Patient stated that he has been having increasing pleuritic chest pain secondary to productive cough. Patient stated his cough is productive. Come into the emergency room today after being unable to reach the restroom because of increasing shortness of breath. Patient denied typically here with increasing wheezing. Patient denied any sick contacts. Increased perspiration. Increased orthopnea. Increasing shortness of breath. Negative paroxysmal nocturnal orthopnea. Positive for diarrhea. Increased bilateral swelling. History of BPH. History of depression. Patient was admitted on 08/09/2024 for CHF exacerbation and influenza A. Patient history of recent travel, recently moved to [place] from [place]. Patient had a rapid response called earlier this morning for low SpO2 84% despite 8 L of oxygen patient had increased work of breathing was tachypneic with circulation intact, patient was started on IV steroids, IV antibiotics. Eventually patient had another rapid response called for altered mental status, patient was noted to be unresponsive to verbal Kaman, responsive to only painful stimuli, patient is GCS of 7 was unable to protect airway, aspiration noted at bedside and patient was emergently intubated. At bedside patient noted to have pink frothy aspirate, high suspicion of pulmonary edema, patient upgraded to intensive care unit for further management. Patient eventually had a central line and arterial line placed. Attempt was made to reach out to patient's emergency contact, but none was available, eventually contacted patient's friend and primary decision maker Rodrigo Schneider. 08/11/24:Patient seen and examined at bedside, overnight significant improvement in patient's, PS this morning 7.16, pCO2 54, bicarb 19.9, high suspicion of underlying shock distributive due to aspiration pneumonia, ordered CTA chest along with CT abdomen pelvis, no known source for sepsis, CTA shows significant bilateral pneumonia with ARDS pattern, patient's antibiotic therapy optimized to Zosyn, linezolid and azithromycin. Patient is also on Tamiflu due to underlying influenza, methylprednisone discontinued, underlying respiratory disease from aspiration pneumonia, less likely COPD exacerbation, will continue with DuoNeb every 6 hours, will hold Lasix and discontinue vancomycin due to worsening renal function, high suspicion of acute tubular necrosis due to sepsis, elevated LFTs, high possibility of shock liver, patient's blood glucose significantly elevated started on insulin gtt. significant elevation of Pro-Donte noted today, nephrology was consulted due to worsening renal function. 08/12/24: Patient seen and examined at bedside, overnight patient developed atrial fibrillation, started on, patient was given Versed push x 1, insulin drip was discontinued around 3 AM due to normalization of blood glucose levels. Patient seen at bedside this morning, minimal urine output, was given Bumex 2 mg x 1, no urine output noted, discussed with memory care program director patient will receive dialysis treatment today goal to remove about 1 L fluid, patient's pressor regimen optimized to Levophed, phenylephrine and vasopressin, will decrease Levophed dose as patient has atrial fibrillation with RVR to minimize increase in heart rate due to Levophed. Patient was started on heparin drip due to underlying atrial fibrillation, will start on tube feeds today, started on 15 units Lantus and sliding scale insulin. Patient's heart rate not well- controlled on amiodarone drip, will consider digoxin 0.5 if needed. Potassium and magnesium optimized at more than 4 and more than 2 respectively. Will continue to monitor patient. 08/13/24: Patient seen and examined at bedside, no acute overnight events, patient was on fentanyl this morning, was started on pressure support this morning, marked improvement noted, marked improvement noted in patient's x-ray, patient requiring minimal pressor support, on low-dose Levophed this morning, RSBI around 18 on pressure support, NIF trial at bedside patient responded well, patient received dialysis treatment yesterday, had about 1 L fluid removed, patient's heart rate continues to remain elevated heart rate around 110-120, currently on amiodarone and heparin drip. Patient was extubated later in the day as sedation wore off, patient tolerating extubation well, patient's point of contact updated on patient's condition at bedside. Antibiotic therapy optimized to IV Unasyn, patient's LFTs continue to remain elevated, otherwise we will continue to maintain MAP of more than 65 on midodrine. Will continue to monitor patient. 08/14/24: Patient seen and examined at bedside, overnight patient was reintubated, started on sedation due to concern of altered mental status, staring spells and being unresponsive, did not respond to BiPAP. Patient is awake this morning responding to questions, alert, responding to questions, mean arterial pressure for patient is more than 65 is not needing pressor support to maintain a MAP of more than 65, currently on midodrine, will increase midodrine dose to 10 mg 3 times daily as patient is needing pressor support during dialysis. Patient did receive dialysis yesterday, had about 1 L fluid removed and is scheduled for dialysis again today. Will discontinue amiodarone due to possible hepatotoxicity, discontinued rosuvastatin, will hold topiramate and other psych medications. Patient is started on pressure support, plan to keep patient on pressure support for longer duration, monitor mentation and will consider extubation in a.m. Will continue antibiotic therapy with IV Unasyn, will continue to monitor patient. 08/15/24: Patient seen and examined at bedside, overnight patient was on a CMP, end-tidal CO2 14 noted on monitor, ABG from this morning shows patient is alkalotic, pH 7.47, pCO2 29, patient placed on pressure support, ABG from last evening shows pCO2 of 53 pH 7.32, patient was on pressure support all day yesterday, patient has active history of smoking in the past, has history of COPD, possible obesity hypoventilation syndrome, has had no pressor requirement currently on midodrine 10 three times daily. Patient will receive dialysis today, discussed with nephrology, will titrate bicarb during dialysis. Patient will be given Cardizem for atrial fibrillation, will start on p.o. Cardizem after. Patient's arterial line was discontinued, will continue Unasyn, heparin drip. Will continue to hold amiodarone, liver function has shown improvement. Will continue Lantus 15 units and sliding scale insulin with blood glucose goal of 140-200, will continue to monitor patient, will continue pressure support overnight unless patient has respiratory decline will change patient to assist- control. Will continue to monitor patient. Exam Vital Signs Temp Pulse Resp BP Pulse Ox O2 Del Method O2 Flow Rate 98.2 F 118 H 28 H 113/54 L 97 Mechanical Ventilation 15 08/14/24 20:00 08/15/24 08:17 08/15/24 06:20 08/15/24 08:17 08/15/24 08:17 08/14/24 16:00 08/13/24 19:36 FiO2 30 08/15/24 08:17 Narrative Exam General: AAOx1, intubated, off sedation dishelved, morbidly obese man, unkempt, bearded male HEENT: Moist mucous membranes, conjunctiva clear, EOMI,skin tags present, right IJ central line Cardiovascular: Pansystolic murmur ausculated upon mitral valve and R sternal border, no carotid bruit appreciated, radial pulses +2 bilat, irregularly irregular, Radial A-line present, bilat wrist restraints present Pulmonary: Crackles appreciated bilaterally, patient on mechanical ventilation, intubated GI: No ascites noted, bowel sounds present, however, abd obesity Extremities: venous stasis noted, unkempt feet, +2 bilat edema in LE Neuro: A&O x 1, responding to commands, responsive. Objective Labs 08/15/24 04:35 08/15/24 04:35 Labs: Laboratory Results - last 24 hr 08/14/24 08/14/24 08/15/24 18:04 18:18 04:35 WBC 11.9 H RBC 3.66 L Hgb 10.0 L Hct 29.7 L MCV 81 MCH 27.3 MCHC 33.7 RDW Std Deviation 45.1 H Plt Count 171 Neut % (Auto) 79 Lymph % (Auto) 12 Guthrie % (Auto) 7 Eos % (Auto) 1 Baso % (Auto) 0 Neut # (Auto) 9.4 H Lymph # (Auto) 1.4 Guthrie # (Auto) 0.8 Eos # (Auto) 0.1 Baso # (Auto) 0.0 Immature Gran # (Auto) 0.16 H Absolute Nucleated RBC 0.02 H Immature Gran % 1 H Nucleated RBC % 0 APTT 44.2 H D Puncture Site Arterial Line ABG pH 7.32 L ABG pCO2 53 H D ABG pO2 204 H D ABG HCO3 27 H ABG O2 Saturation 100 H ABG Base Excess 0 FiO2 35 Sodium 133 L Potassium 4.0 3.8 Chloride 96 L Carbon Dioxide 23.4 Anion Gap 14 BUN 52 H Creatinine 4.3 H* Estim Creat Clear Calc 28.3 L eGFR 15 L BUN/Creatinine Ratio 12 Glucose 93 Calculated Osmolality 280 Calcium 8.3 Corrected Calcium 9.0 Phosphorus 3.8 Magnesium 2.2 2.3 Total Bilirubin 1.3 H AST 455 H ALT 669 H* Alkaline Phosphatase 46 Total Protein 5.6 L Albumin 3.1 L Globulin 2.5 Albumin/Globulin Ratio 1.2 08/15/24 06:30 WBC RBC Hgb Hct MCV MCH MCHC RDW Std Deviation Plt Count Neut % (Auto) Lymph % (Auto) Guthrie % (Auto) Eos % (Auto) Baso % (Auto) Neut # (Auto) Lymph # (Auto) Guthrie # (Auto) Eos # (Auto) Baso # (Auto) Immature Gran # (Auto) Absolute Nucleated RBC Immature Gran % Nucleated RBC % APTT Puncture Site Arterial Line ABG pH 7.47 H D ABG pCO2 29 L D ABG pO2 193 H ABG HCO3 22 ABG O2 Saturation 99 H ABG Base Excess -1 FiO2 30 Sodium Potassium Chloride Carbon Dioxide Anion Gap BUN Creatinine Estim Creat Clear Calc eGFR BUN/Creatinine Ratio Glucose Calculated Osmolality Calcium Corrected Calcium Phosphorus Magnesium Total Bilirubin AST ALT Alkaline Phosphatase Total Protein Albumin Globulin Albumin/Globulin Ratio ABG Interpretation ABG results: 08/10/24 08/10/24 08/10/24 11:34 13:55 16:46 ABG pH 7.21 L 6.97 L* D 6.99 L* ABG pCO2 49 H 95 H* D 78 H* D ABG pO2 60 L 64 L 41 L* D ABG HCO3 20 22 19 L ABG O2 Saturation 86 L 80 L 58 L ABG Base Excess -8 L -12 L -14 L VBG pH VBG pCO2 VBG pO2 VBG Base Excess 08/10/24 08/10/24 08/10/24 19:28 20:48 21:13 ABG pH 7.01 L* Cancelled 7.08 L* ABG pCO2 75 H* Cancelled 69 H ABG pO2 47 L* Cancelled 61 L ABG HCO3 19 L Cancelled 20 ABG O2 Saturation 72 L Cancelled 87 L ABG Base Excess -13 L Cancelled -11 L VBG pH VBG pCO2 VBG pO2 VBG Base Excess 08/11/24 08/11/24 08/11/24 00:34 04:08 14:56 ABG pH 7.14 L* 7.16 L* 7.17 L* ABG pCO2 60 H 54 H 50 H ABG pO2 83 D 114 H D 72 L D ABG HCO3 20 19 L 18 L ABG O2 Saturation 96 99 H 93 ABG Base Excess -10 L -10 L -10 L VBG pH VBG pCO2 VBG pO2 VBG Base Excess 08/11/24 08/11/24 08/12/24 20:05 23:14 02:06 ABG pH 7.20 L 7.25 L 7.27 L ABG pCO2 55 H 49 H 50 H ABG pO2 82 L 93 90 ABG HCO3 21 22 23 ABG O2 Saturation 96 98 98 ABG Base Excess -7 L -6 L -4 L VBG pH VBG pCO2 VBG pO2 VBG Base Excess 08/12/24 08/12/24 08/12/24 06:30 10:13 10:45 ABG pH 7.34 L 7.31 L ABG pCO2 41 42 ABG pO2 177 H D 134 H D ABG HCO3 22 21 ABG O2 Saturation 100 H 100 H ABG Base Excess -4 L -5 L VBG pH 7.30 L VBG pCO2 43 VBG pO2 53 VBG Base Excess -5 L 08/12/24 08/12/24 08/13/24 14:10 19:57 04:27 ABG pH 7.33 L 7.35 7.35 ABG pCO2 40 41 40 ABG pO2 114 H D 103 95 ABG HCO3 21 23 22 ABG O2 Saturation 99 H 99 H 98 ABG Base Excess -5 L -3 -4 L VBG pH VBG pCO2 VBG pO2 VBG Base Excess 08/13/24 08/13/24 08/13/24 20:14 21:45 23:54 ABG pH 7.26 L 7.26 L 7.26 L ABG pCO2 61 H D 60 H 59 H ABG pO2 84 201 H D 151 H D ABG HCO3 27 H 27 H 27 H ABG O2 Saturation 96 100 H 100 H ABG Base Excess -1 -1 -1 VBG pH VBG pCO2 VBG pO2 VBG Base Excess 08/14/24 08/14/24 08/15/24 02:49 18:04 06:30 ABG pH 7.39 D 7.32 L 7.47 H D ABG pCO2 41 D 53 H D 29 L D ABG pO2 292 H D 204 H D 193 H ABG HCO3 25 27 H 22 ABG O2 Saturation 101 H 100 H 99 H ABG Base Excess 0 0 -1 VBG pH VBG pCO2 VBG pO2 VBG Base Excess Quality Measures Quality Measures none Assessment & Plan Assessment Current Active Medications: Generic Name Dose Route Start Last Admin Trade Name Freq PRN Reason Stop Dose Admin Acetaminophen 650 mg 08/11/24 08:37 Acetaminophen 325 Mg Tablet PO 09/10/24 05:56 Q6HR PRN FEVER >101 Aspirin 81 mg 08/11/24 09:00 08/14/24 09:55 Aspirin Ec 81 Mg Tabec PO 09/10/24 08:59 81 mg QDAY ASHWIN Administration Rosuvastatin 20 Mg 0 ea 08/09/24 21:00 08/13/24 22:47 PO 09/08/24 20:59 Not Given HS ASHWIN Dextrose 25 ml 08/09/24 15:31 Dextrose 50%-Water Inj 50 Ml Syringe IV 09/08/24 15:30 Q15MIN PRN BG 50-70 responsive npo pt Dextrose 50 ml 08/09/24 15:31 08/12/24 04:24 Dextrose 50%-Water Inj 50 Ml Syringe IV 09/08/24 15:30 50 ml Q15MIN PRN Administration BG <50 OR BG <70 & pt unresponsive Glucagon 1 mg 08/09/24 15:31 Glucagon Inj 1 Mg Vial IM Q15MIN PRN BG <70, and no IV access Heparin Sodium (Porcine) 3,000 unit 08/12/24 15:11 08/14/24 10:37 Heparin Sod Inj 1000 Unit/Ml Vial 10 Ml INDWELLCAT 08/26/24 15:10 3,000 unit PRN PRN Administration DIALYSIS Heparin Sodium/Dextrose 25,000 unit in 250 mls @ 17.721 mls/hr 08/12/24 14:30 08/15/24 05:57 Heparin In D5w Ivpb IV 08/26/24 14:29 9 units/kg/hr .Q14H7M ASHWIN 14.499 mls/hr Administration Protocol 11 UNITS/KG/HR Albumin Human 25 gm in 100 mls @ 100 mls/min 08/12/24 15:11 Albuminar-25 Ivpb IV PRN PRN DIALYSIS Ampicillin Sodium/Sulbactam 100 mls @ 200 mls/hr 08/13/24 12:00 08/15/24 05:59 Sodium 3 gm/ Sodium Chloride IV 08/20/24 11:59 200 mls/hr Q6HR ASHWIN Administration Norepinephrine/Dextrose 8 mg in 250 mls @ 15.141 mls/hr 08/13/24 17:09 08/14/24 10:06 Levophed In D5w 8mg/250ml IV 09/12/24 17:08 0 mcg/kg/min .[id number] PRN 0 mls/hr PER PROTOCOL Titration Protocol 0.05 MCG/KG/MIN Propofol 1,000 mg in 100 mls @ 4.845 mls/hr 08/14/24 00:46 08/14/24 08:00 Diprivan Ivpb IV 09/13/24 00:45 0 mcg/kg/min .[id number] PRN 0 mls/hr PER PROTOCOL Titration Protocol 5 MCG/KG/MIN Fentanyl Citrate 2,500 mcg in 250 mls @ 2.5 mls/hr 08/14/24 00:47 08/14/24 09:00 Sublimaze Inj 2,500 Mcg/250 Ml Bag IV 08/19/24 00:46 0 mcg/hr .Q24H PRN 0 mls/hr PER PROTOCOL Titration Protocol 25 MCG/HR Insulin Glargine 15 unit 08/12/24 09:30 08/14/24 08:59 Insulin Glargine (Lantus) 5 Unit/0.05 Ml (Per 5 Units) SC 09/11/24 09:29 Not Given QDAY ASHWIN Insulin Human Lispro 0 unit 08/13/24 10:41 08/15/24 06:51 Insulin Lispro (Admelog) 1 Unit/0.01 Ml Unit SC 09/11/24 09:59 Not Given Q4HR ASHWIN Protocol Levalbuterol HCl 0.63 mg 08/13/24 19:15 08/15/24 06:19 Levalbuterol Rt 0.63 Mg/3 Ml Nebu INH 09/12/24 19:14 0.63 mg Q6HRRT ASHWIN Administration Midodrine 10 mg 08/14/24 14:00 08/15/24 05:59 Midodrine 5 Mg Tablet PO 09/13/24 13:59 10 mg TID ASHWIN Administration Mirtazapine 45 mg 08/09/24 21:00 08/10/24 21:28 Mirtazapine 15 Mg Tablet PO 09/08/24 20:59 45 mg HS ASHWIN Administration Ondansetron HCl 4 mg 08/09/24 15:20 Ondansetron Inj 2 Mg/Ml Inj 2 Ml IV 09/08/24 15:19 Q6H PRN NAUSEA OR VOMITING Protocol Pantoprazole Sodium 40 mg 08/09/24 15:30 08/14/24 09:55 Pantoprazole Inj 40 Mg Vial IVP 09/08/24 15:29 40 mg QDAY ASHWIN Administration Paroxetine HCl 20 mg 08/14/24 21:00 Paroxetine Hcl 10 Mg Tablet PO 09/13/24 20:59 HS ASHWIN Pharmacy Consult 1 each 08/11/24 20:59 Pharmacy Renal Dose Adjustment 1 Ea XX 09/10/24 20:58 PRN PRN CONSULT Risperidone 3 mg 08/14/24 21:00 Risperidone 1 Mg Tablet PO 09/13/24 20:59 HS ASHWIN Tamsulosin HCl 0.4 mg 08/09/24 16:00 08/14/24 09:55 Tamsulosin Hcl 0.4 Mg Capsule PO 09/08/24 15:59 0.4 mg QDAY ASHWIN Administration Topiramate 50 mg 08/09/24 21:00 08/13/24 22:46 Topiramate 25 Mg Tablet PO 09/08/24 20:59 Not Given HS ASHWIN Plan Assessment and Plan Summary: Mr. Bella is a 64-year-old male with past medical history of hypertension, hyperlipidemia, coronary artery disease, type diabetes mellitus insulin-dependent, CHF, atrial fibrillation, history of seizures who was admitted to [facility] for management of CHF exacerbation and influenza A. Patient upgraded to ICU after emergent intubation post worsening of mentation and bedside aspiration with inability to protect airway. Neurological #Acute metabolic encephalopathy Multifactorial: Acute hypoxic/hypercapnic respiratory failure, underlying acidosis, underlying sepsis, polypharmacy Diagnostic workup: Patient had altered mental status, unable to protect airway, ABG pH 6.97, pCO2 95, pO2 64 Home medication includes risperidone 6 mg at bedtime, mirtazapine 45 mg at bedtime, and paroxetine 40 mg at bedtime for depression Treatment: -Patient intubated started on mechanical ventilation -Correct underlying acidosis -Continue IV antibiotics -Will hold risperidone, mirtazapine and paroxetine -Discontinued fentanyl and propofol Follow-up: -Reorient frequently -Will treat underlying etiology #History of seizures Patient has a past medical history of seizures, last seizure was several years ago and patient cannot recall but has been stable. Home medication topiramate 50 mg HS. Differential diagnosis: Low suspicion of seizure, no seizure-like activity noted Diagnostic workup: Will monitor for seizures/seizure-like activity Treatment: -Will hold topiramate 50 mg at bedtime, considering patient's altered mental status. Cardiology #Shock Differential diagnosis: Distributive (septic shock due to aspiration pneumonia) ruled out obstructive shock (pulmonary embolism) and cardiogenic shock Diagnostic workup: Chest CTA significant for bilateral pneumonia and ARDS, ruled out PE Patient is influenza A positive, significant aspiration noted bedside, suspicion of underlying aspiration pneumonia Chest x-ray significant for interval severe bilateral pneumonia Patient does have history of coronary artery disease, EKG showed no ST elevation, mild troponin elevation noted, Bedside echo shows good contractility, noted on cardiac Elevated Pro-Donte to 211.93 Patient was given Zosyn(08/10-08/13) , azithromycin, (08/10-08/12) linezolid (08/11-08/13) vancomycin (08/10-08/11), Tamiflu (08/09-08/14) D/Koby Vasopresin, levophed, phenylepherine Treatment: -Continue midodrine 10 TID -Continue Unasyn (08/13- Follow-up: -Monitor for fevers, vitals closely #Congestive heart failure, HFpEF EF 55 to 60% # Mild aortic stenosis, mitral stenosis Differential diagnosis: Systolic versus diastolic heart failure Diagnostic workup: Patient complained of dyspnea at baseline, orthopnea on admission, 2+ leg edema bilaterally just below the knees, BNP 275 Repeat 618 Patient on Lasix at home, last ejection fraction unknown, echo done during this hospitalization Echo significant for Normal LV size and function. Mild LVH. Estimated EF 55-60%. Cannot determine diastolic function due to AFib. Mildly dilated RV and normal RV function. Could not visualize TR or tricuspid valve well. Unable to estimate RVSP and PAH. All valves poorly visualized. Mild AV stenosis, max gradient 33mmHg, vmax 2.8m/s. Mild AI and Mild AI IVC dilated Treatment: -Patient received 80 mg Lasix BID (08/10), patient was given Bumex 2 mg x 1 -No urine output noted with Bumex, will schedule for dialysis -Consulted cardiology, appreciate recommendations -Patient received dialysis 08/13, 1 L removed, 08/14 Follow-up: -Monitor urine output -Scheduled for dialysis today, will follow-up -Will titrate bicarb for CO2 retention during dialysis -Consider IV bicarb push as needed #Atrial fibrillation with rapid ventricular response Differential diagnosis: Patient has history of A-fib currently with RVR Diagnostic workup: EKG shows atrial fibrillation, irregular rate noted on telemetry at bedside Treatment: -Started on Cardizem -Continue heparin drip -Will consider digoxin for rate control if needed -Discontinued amiodarone due to concern of hepatotoxicity, will monitor heart rate Follow-up: -Telemonitoring #Demand Ischemia Differential diagnosis: Demand Ischemia, NSTEMI type 1 ruled out Diagnostic workup: EKG negative for ST elevation Serial troponins noted to be elevated Troponins mildly elevated, troponin peak at 0.517, repeat EKG negative Treatment/Follow-up: -Will consider EKG, continue phototypesetting equipment monitor #Hypertension #Hyperlipidemia #History of coronary artery disease Has a past medical history of hyperlipidemia with a previous history of GA approximately 5 years ago. Patient takes rosuvastatin 20 mg at bedtime. Patient has a past medical history of hypertension on losartan. Patient started on amlodipine 5 mg due to ARIANA during this hospitalization, will hold in setting of shock. Pulmonary #Acute hypoxic/hypercapnic respiratory failure secondary to #Influenza A #Aspiration pneumonia, ARDS #COPD Differential diagnosis: Aspiration pneumonia, Influenza A, less likely COPD exacerbation, pulmonary embolism, pulmonary edema Diagnostic workup: Bedside influenza A positive, active aspiration event noted Worsening of chest x-ray noted CTA significant for bilateral pneumonia and ARDS pattern Patient has history of COPD, about 40 pack years Patient was given Zosyn(08/10-08/13) , azithromycin, (08/10-08/12) linezolid (08/11-08/13) vancomycin (08/10-08/11), Tamiflu (08/09-08/14) Treatment: -DuoNeb every 6 hours -Started on midodrine 10 TID -patient started on Unasyn (08/13- Follow-up: -Optimize mechanical ventilator settings -Follow blood gas as needed -Consider IV bicarb push as needed Gastrointestinal # Hepatitis 2/2 shock liver Differential diagnosis: Shock liver, low suspicion of venous congestion or fluid Diagnostic workup: AST 553, ALT 254, significant rise in LFTs noted Hep panel negative Treatment: Will continue to maintain mean arterial pressure Discontinued amiodarone, topiramate Continue to hold psychiatry medication Follow-up: Follow LFTs in AM Renal/Genitourinary #Acute kidney injury, likely secondary to ATN Differential diagnosis: Prerenal versus ATN in setting of ischemia Diagnostic workup: Elevated creatinine 1.6 on admission likely reflecting an ARIANA. Baseline unknown. Patient was not given fluids in setting of possible CHF exacerbation Patient received dialysis 08/13, 1 L removed, 08/14 1 L removed Treatment: -Patient scheduled for dialysis today -Will monitor renal function -Consulted pharmacy to dose medications renally -Avoid nephrotoxic agents Follow-up: -Follow renal panel in a.m. -Consider IV bicarb push as needed Endocrine #Type 2 diabetes mellitus, insulin-dependent # Hyperglycemia Patient has a past medical history of diabetes mellitus type 2 Home medication include Lantus 12 units, Januvia (Sitagliptin), Jardiance (Empagliflozin), and Ozempic. Patient stated he has lost about 120 lbs. Diagnostic workup: Hemoglobin A1c 7.1 Treatment: -Started on Lantus 15 units daily, sliding scale lispro Follow-up: -Monitor fingerstick blood glucose every 6 hours -Goal fingerstick BG 140-180 Hematology #Leukocytosis Possibly due to underlying sepsis Infectious Disease #Influenza A #Pneumonia -See respiratory system for details Integumentary #Bilateral venous stasis Differential diagnosis: Chronic venous insufficiency Treatment: Wound care as needed DVT prophylaxis: Heparin GI prophylaxis: Protonix Diet: N.p.o. Lines: Peripheral IV, right IJ central line, right circumflex A-line, left femoral Vas-Cath Code status: Full code Catheter: [place] catheter, discontinued (08/10-08/13) Case discussed with Attending Dr. Murry and Dr. Min PGY2. Ju Saez PGY1 Disclaimer: This note was dictated by speech recognition. Minor errors in healthcare insurance sales agent may be present due to voice recognition software.
[2024-08-15] MEDS: ALBUMIN HUMAN 25% IVPB 25 GM/100 ML BTL IV (12:33)
--- NOTE | 2024-08-15 12:34 | PC.NURSE ---
BP low, ABRAHAN Prince says unable to start Levophed until MAP below 65. Albumin 25% given.
[2024-08-15 12:42] LABS: Partial Thromboplastin Time 52.4 Seconds (22.0-36.0)
[2024-08-15] MEDS: HEPARIN SOD INJ 1000 UNIT/ML VIAL 10 ML 3000 UNIT INDWELLCAT (14:52)
[2024-08-15 17:59] LABS: Anion Gap 15 (7-16); BUN/Creatinine Ratio 11 Ratio (12-20); Blood Urea Nitrogen 41 mg/dL (9-23); Calcium 8.2 mg/dL (8.3-10.6); Carbon Dioxide 24.8 mMol/L (20.0-31.0); Chloride 94 mMol/L (98-107); Creatinine (Component) 3.7 mg/dL (0.6-1.3); Estimated Creatinine Clearance 32.6 mL/min (>60); Glucose 137 mg/dL (74-106); Osmolality,Calculated 280 (275-295); Potassium 4.1 mMol/L (3.4-5.1); Sodium 134 mMol/L (136-145); eGFR 17 See Note
[2024-08-15] MEDS: EPOETIN ALFA-EPBX INJ 10,000 UNIT/ML VIAL (NON-ESRD) 10000 UNIT SC (18:24)
[2024-08-15] MEDS: SODIUM BICARB INJ 8.4% 1 mEq/ML VIAL 50 ML 150 MEQ IV (19:24)
--- NOTE | 2024-08-15 19:28 | PD.IMPROG ---
Documentation for date of: 08/15/24 Subjective Subjective Interval history: Patient seen and examined at the bedside. Telemetry reviewed and patient is still in A-fib with RVR with rates around 100-120 bpm. Patient apparently received diltiazem 30 mg IV x 1 and now started on diltiazem 30 mg every 6 hours. Recommend to restart amiodarone 200 mg twice daily for the patient for better rate control with hypertension as his elevated LFTs are mostly secondary to the recent shock liver in the presence of statin and other antipsych medications. Elevated LFTs improving and ALT is not 616 and AST is 455. Total bili also decreasing to 1.3 lactate is still elevated around 2.4. BUN is 41 creatinine is 3.7 and sodium is 134 chloride is 94. Hemoglobin stable at 10 and WBC is 11.9. Patient is still intubated but not sedated is awake alert oriented x 2. Not on any pressor support and not on any sedation. Primary team planning to slowly weaning of the ventilator based on his clinical improvement. Patient still continues to be severely volume overloaded with more than 3+ edema in bilateral lower legs as well as in the sacral area as well as abdominal madera. Recommend to continue dialysis for now Patient still continues to make some urine but will hold off on the diuretics because of the ARIANA and can be restarted later if patient's kidney function continues to improve. Regarding atrial fibrillation with RVR recommend to restart the amiodarone 200 mg twice daily for now for better rate control and patient is hypotensive. If blood pressure is better then can continue diltiazem 30 mg every 6 hours as the patient does have hypercapnic respiratory failure and underlying COPD. Echo was suboptimal but showed possible normal LV function and normal RV function. Keep potassium between 4 and 5 and magnesium greater than 2.0 at all times. Recommend to continue to monitor on telemetry Exam Vital Signs Temp Pulse Resp BP Pulse Ox O2 Del Method O2 Flow Rate 97.5 F 106 H 20 109/66 99 Mechanical Ventilation 15 08/15/24 16:00 08/15/24 18:45 08/15/24 18:00 08/15/24 18:45 08/15/24 18:45 08/15/24 16:00 08/13/24 19:36 FiO2 35 08/15/24 18:00 Narrative Exam General: Morbidly obese male, dishelved,unkempt, bearded male. Still intubated HEENT: Moist mucous membranes, conjunctiva clear, EOMI,skin tags present Cardiovascular: Pansystolic murmur ausculated upon mitral valve and R sternal border, no carotid bruit appreciated, radial pulses +2 bilat, irregularly irregular, Pulmonary: coarse breath sounds bilaterally GI: No ascites noted, bowel sounds present, however, abd obesity Extremities: venous stasis noted, unkempt feet, 3+ bilat edema in LE, +1 edema bilat LE Neuro: AAOx2-3, no focal deficits Objective Labs 08/15/24 04:35 08/15/24 17:25 Labs: Laboratory Results - last 24 hr 08/15/24 08/15/24 08/15/24 04:35 06:30 11:50 WBC 11.9 H RBC 3.66 L Hgb 10.0 L Hct 29.7 L MCV 81 MCH 27.3 MCHC 33.7 RDW Std Deviation 45.1 H Plt Count 171 Neut % (Auto) 79 Lymph % (Auto) 12 [place] % (Auto) 7 Eos % (Auto) 1 Baso % (Auto) 0 Neut # (Auto) 9.4 H Lymph # (Auto) 1.4 [place] # (Auto) 0.8 Eos # (Auto) 0.1 Baso # (Auto) 0.0 Immature Gran # (Auto) 0.16 H Absolute Nucleated RBC 0.02 H Immature Gran % 1 H Nucleated RBC % 0 APTT 44.2 H D 52.4 H Puncture Site Arterial Line ABG pH 7.47 H D ABG pCO2 29 L D ABG pO2 193 H ABG HCO3 22 ABG O2 Saturation 99 H ABG Base Excess -1 FiO2 30 Sodium 133 L Potassium 3.8 Chloride 96 L Carbon Dioxide 23.4 Anion Gap 14 BUN 52 H Creatinine 4.3 H* Estim Creat Clear Calc 28.3 L eGFR 15 L BUN/Creatinine Ratio 12 Glucose 93 Calculated Osmolality 280 Calcium 8.3 Corrected Calcium 9.0 Phosphorus 3.8 Magnesium 2.3 Total Bilirubin 1.3 H AST 455 H ALT 669 H* Alkaline Phosphatase 46 Total Protein 5.6 L Albumin 3.1 L Globulin 2.5 Albumin/Globulin Ratio 1.2 08/15/24 17:25 WBC RBC Hgb Hct MCV MCH MCHC RDW Std Deviation Plt Count Neut % (Auto) Lymph % (Auto) [place] % (Auto) Eos % (Auto) Baso % (Auto) Neut # (Auto) Lymph # (Auto) [place] # (Auto) Eos # (Auto) Baso # (Auto) Immature Gran # (Auto) Absolute Nucleated RBC Immature Gran % Nucleated RBC % APTT Puncture Site ABG pH ABG pCO2 ABG pO2 ABG HCO3 ABG O2 Saturation ABG Base Excess FiO2 Sodium 134 L Potassium 4.1 Chloride 94 L Carbon Dioxide 24.8 Anion Gap 15 BUN 41 H Creatinine 3.7 H D Estim Creat Clear Calc 32.6 L eGFR 17 L BUN/Creatinine Ratio 11 L Glucose 137 H Calculated Osmolality 280 Calcium 8.2 L Corrected Calcium Phosphorus Magnesium Total Bilirubin AST ALT Alkaline Phosphatase Total Protein Albumin Globulin Albumin/Globulin Ratio ABG Interpretation ABG results: 08/10/24 08/10/24 08/10/24 11:34 13:55 16:46 ABG pH 7.21 L 6.97 L* D 6.99 L* ABG pCO2 49 H 95 H* D 78 H* D ABG pO2 60 L 64 L 41 L* D ABG HCO3 20 22 19 L ABG O2 Saturation 86 L 80 L 58 L ABG Base Excess -8 L -12 L -14 L VBG pH VBG pCO2 VBG pO2 VBG Base Excess 08/10/24 08/10/24 08/10/24 19:28 20:48 21:13 ABG pH 7.01 L* Cancelled 7.08 L* ABG pCO2 75 H* Cancelled 69 H ABG pO2 47 L* Cancelled 61 L ABG HCO3 19 L Cancelled 20 ABG O2 Saturation 72 L Cancelled 87 L ABG Base Excess -13 L Cancelled -11 L VBG pH VBG pCO2 VBG pO2 VBG Base Excess 08/11/24 08/11/24 08/11/24 00:34 04:08 14:56 ABG pH 7.14 L* 7.16 L* 7.17 L* ABG pCO2 60 H 54 H 50 H ABG pO2 83 D 114 H D 72 L D ABG HCO3 20 19 L 18 L ABG O2 Saturation 96 99 H 93 ABG Base Excess -10 L -10 L -10 L VBG pH VBG pCO2 VBG pO2 VBG Base Excess 08/11/24 08/11/24 08/12/24 20:05 23:14 02:06 ABG pH 7.20 L 7.25 L 7.27 L ABG pCO2 55 H 49 H 50 H ABG pO2 82 L 93 90 ABG HCO3 21 22 23 ABG O2 Saturation 96 98 98 ABG Base Excess -7 L -6 L -4 L VBG pH VBG pCO2 VBG pO2 VBG Base Excess 08/12/24 08/12/24 08/12/24 06:30 10:13 10:45 ABG pH 7.34 L 7.31 L ABG pCO2 41 42 ABG pO2 177 H D 134 H D ABG HCO3 22 21 ABG O2 Saturation 100 H 100 H ABG Base Excess -4 L -5 L VBG pH 7.30 L VBG pCO2 43 VBG pO2 53 VBG Base Excess -5 L 08/12/24 08/12/24 08/13/24 14:10 19:57 04:27 ABG pH 7.33 L 7.35 7.35 ABG pCO2 40 41 40 ABG pO2 114 H D 103 95 ABG HCO3 21 23 22 ABG O2 Saturation 99 H 99 H 98 ABG Base Excess -5 L -3 -4 L VBG pH VBG pCO2 VBG pO2 VBG Base Excess 08/13/24 08/13/24 08/13/24 20:14 21:45 23:54 ABG pH 7.26 L 7.26 L 7.26 L ABG pCO2 61 H D 60 H 59 H ABG pO2 84 201 H D 151 H D ABG HCO3 27 H 27 H 27 H ABG O2 Saturation 96 100 H 100 H ABG Base Excess -1 -1 -1 VBG pH VBG pCO2 VBG pO2 VBG Base Excess 08/14/24 08/14/24 08/15/24 02:49 18:04 06:30 ABG pH 7.39 D 7.32 L 7.47 H D ABG pCO2 41 D 53 H D 29 L D ABG pO2 292 H D 204 H D 193 H ABG HCO3 25 27 H 22 ABG O2 Saturation 101 H 100 H 99 H ABG Base Excess 0 0 -1 VBG pH VBG pCO2 VBG pO2 VBG Base Excess Assessment & Plan A&P Vaishali Morales is a 64 y/o male with past medical history of hypertension, hyperlipidemia, CAD, type 2 diabetes insulin-dependent, CHF, A-fib (on Eliquis 5mg twice daily), history of seizures who is currently admitted into the ICU for acute hypoxic hypercarbic respiratory failure requiring intubation and likely septic shock secondary to influenza A. #Septic shock secondary to #Influenza A #? Superimposed bacterial infection Influenza A positive Currently on levophed, vasopressin, phenylepiphrine Pt currently has A line at this time Blood cultures NG1D, sputum negative Plan: -Continue Tamiflu started for patient -Continue Zosyn -Treat infection to wean down pressors #Afib with RVR, on home Eliquis [id number] HAS-BLED: 1 Irregular and rate in the 120s needed AC:Has home Eliquis Plan: Telemetry reviewed and patient is still in A-fib with RVR with rates around 100-120 bpm. Patient apparently received diltiazem 30 mg IV x 1 and now started on diltiazem 30 mg every 6 hours. Recommend to restart amiodarone 200 mg twice daily for the patient for better rate control with hypertension as his elevated LFTs are mostly secondary to the recent shock liver in the presence of statin and other antipsych medications. Elevated LFTs improving and ALT is not 616 and AST is 455. Total bili also decreasing to 1.3 lactate is still elevated around 2.4. BUN is 41 creatinine is 3.7 and sodium is 134 chloride is 94. Hemoglobin stable at 10 and WBC is 11.9. Patient is still intubated but not sedated is awake alert oriented x 2. Not on any pressor support and not on any sedation. Primary team planning to slowly weaning of the ventilator based on his clinical improvement. Patient still continues to be severely volume overloaded with more than 3+ edema in bilateral lower legs as well as in the sacral area as well as abdominal madera. Recommend to continue dialysis for now Patient still continues to make some urine but will hold off on the diuretics because of the ARIANA and can be restarted later if patient's kidney function continues to improve. Regarding atrial fibrillation with RVR recommend to restart the amiodarone 200 mg twice daily for now for better rate control and patient is hypotensive. If blood pressure is better then can continue diltiazem 30 mg every 6 hours as the patient does have hypercapnic respiratory failure and underlying COPD. Echo was suboptimal but showed possible normal LV function and normal RV function. Keep potassium between 4 and 5 and magnesium greater than 2.0 at all times. Recommend to continue to monitor on telemetry #Hx of CAD #Acute exacerbation of HFpEF with diastolic dysfunction #NSTEMI type II, likely related to demand ischemia Echo shows EF 55-60%, normal LV, mild LVH, dilated RV, IVC dilated, AV stenosis Troponins have peaked Pt BUN/Cr 66 and 4.2 respectively, removed 1L dialysis yesterday which improved pt Plan: -Patient is still fluid overloaded significantly, nephrology has been on board and continue dialysis. -IV diuresis held for now because of ARIANA and patient has some urine output. -Resume ASA. Statin held due to the elevated LFTs. No beta-ninfa due to the hypotension #IDDM #Hyperlipidemia #Hypertension Total Cholesterol: 83 LDL:30 A1c 7.1 Plan: Holding BP meds as he is hypotensive and on pressors Resumed home Rosuvastatin Primary team to handle BG #Acute hypoxic hypercarbic respiratory failure #Respiratory acidosis #? hx of COPD #? OHS Likely multifactorial, could be also due to flash pulmonary edema due rapid changes However, this could also be due to infectious cause, OHS, COPD Extensive smoking history, pt is most likely has COPD On ventilator currently, will adjust settings and PEEP to bring down acidosis ABG pH: 7.35, PCO2 40 Plan: -Treat underlying infection -Pulmonary hygiene -Chest physiotherapy -ABGS -Consider levalbuterol considering afib hx #ARIANA, prerenal #Shock liver #History of depression #History of seizures #Normocytic Anemia #Mild Hyponatremia Hypo-osmolar, Hypervolemic Management of rest of the medical conditions as per primary team and other consultants. Thank you for the consult and allowing me to participate in the care of the patient. Cardiology will continue to follow. Nacho Yoon M.D. Interventional Cardiology Time Spent With Patient Time: Total time spent is greater than 50% in coordination of care (as documented) at patient's floor/unit and/or counseling patient: Procedures Arterial Line Size (Gauge): 20
[2024-08-15] MEDS: DILTIAZEM 30 MG TABLET PO (21:57)
[2024-08-16] VITALS (94 sets, daily range): BP systolic 91–161; BP diastolic 57–94; PULSE 78–123; RESP 7–32; TEMP 36.1–36.9; O2SAT 97–100; BMI 45.6
[2024-08-16] MEDS: AMPICILLIN/SULBAC INJ 3 GM in SODIUM CHLORIDE 0.9% 100 ML IV ×5 (00:31→23:48)
[2024-08-16] MEDS: LEVALBUTEROL RT 0.63 MG/3 ML NEBU INH ×4 (00:36→19:28)
[2024-08-16] MEDS: Heparin/D5w 25K 250 ML Ivpb 25,000 UNIT/250 ML BAG 14.499 UNIT IV (02:28)
[2024-08-16 04:30] LABS: Base Excess 0 (-3-3); HCO3 26 mEq/L (20-26); Inspired Oxygen, FIO2 35 %; O2 Saturation 100 % (91-98); PCO2 50 mmHg (32.0-48.0); PO2 149 mmHg (83-108); pH, Arterial 7.33 (7.35-7.45)
[2024-08-16 04:45] LABS: Allen Test Performed/OK; Puncture Site Right Radial
--- NOTE | 2024-08-16 05:00 | XR_ITS ---
Examination: AP chest single view Technique one AP portable upright chest single view Exam date and time: August 16, 2024 1638 hours Comparison August 15, 2024 INDICATIONS: Hypoxic respiratory failure, pneumonia ARDS on imaging this week FINDINGS: Significant bilateral pneumonia again noted Right internal jugular central line tip SVC satisfactory position Endotracheal tube tip 4.9 cm above ioana The orogastric tube is in the stomach in satisfactory position IMPRESSION: Significant primarily bibasilar pneumonia again noted Endotracheal tube tip 4.9 cm above ioana
[2024-08-16] MEDS: MIDODRINE 5 MG TABLET 10 MG PO ×3 (05:37→20:44)
[2024-08-16] MEDS: DILTIAZEM 30 MG TABLET PO ×3 (05:37→20:44)
--- NOTE | 2024-08-16 05:45 | PC.RT ---
vent circuit condensation drain at this time pt tolerating settings.
[2024-08-16 06:03] LABS: Basophils % (Auto) 0 % (0-2.5); Eosinophils # (Auto) 0.1 Thou/mm3 (0.0-0.5); Eosinophils % (Auto) 1 % (0-10); Hematocrit 31.5 % (41.0-53.0); Hemoglobin 10.3 g/dL (13.5-16.0); Immature Granulocytes % (Auto) 3 % (0-0); Immature Granulocytes Auto 0.28 Thou/mm3 (0.00-0.00); Lymphocytes # (Auto) 1.3 Thou/mm3 (1.0-4.8); Lymphocytes % (Auto) 12 % (10-50); Mean Corpuscular HGB Conc 32.7 g/dl (31.0-37.0); Mean Corpuscular Hemoglobin 27.4 pg (25.0-35.0); Mean Corpuscular Volume 84 fL (80-100); Monocytes % (Auto) 9 % (0-12); Neutrophils # (Auto) 8.1 Thou/mm3 (1.8-7.7); Neutrophils % (Auto) 75 % (37-80); Nucleated Red Blood Cell % 0 /100 WBC (0); Platelet Count 178 Thou/mm3 (140-440); RDW Standard Deviation 47.8 fL (35.1-43.9); Red Blood Count 3.76 Miln/mm3 (4.50-5.90); White Blood Count 10.8 Thou/mm3 (3.8-10.6)
[2024-08-16 06:17] LABS: Partial Thromboplastin Time 45.9 Seconds (22.0-36.0)
[2024-08-16 06:32] LABS: Alanine Aminotransferase 446 U/L (10-49); Albumin, Serum 3.5 gm/dL (3.4-4.8); Albumin/Globulin Ratio 1.3 (1.2-2.2); Alkaline Phosphatase 46 U/L (46-116); Anion Gap 17 (7-16); Aspartate Amino Transferase 142 U/L (0-34); BUN/Creatinine Ratio 11 Ratio (12-20); Bilirubin,Total 1.3 mg/dL (0.3-1.2); Blood Urea Nitrogen 51 mg/dL (9-23); Calcium 8.4 mg/dL (8.3-10.6); Calcium (Corrected) 8.8 mg/dL (8.5-10.1); Chloride 93 mMol/L (98-107); Creatinine (Component) 4.5 mg/dL (0.6-1.3); Estimated Creatinine Clearance 26.8 mL/min (>60); Globulin 2.7 gm/dL (2.3-3.5); Glucose 169 mg/dL (74-106); Magnesium 2.5 mg/dL (1.6-2.6); Osmolality,Calculated 287 (275-295); Phosphorous 6.3 mg/dL (2.4-5.1); Potassium 3.9 mMol/L (3.4-5.1); Sodium 135 mMol/L (136-145); Total Protein 6.2 gm/dL (5.7-8.2); eGFR 14 See Note
[2024-08-16] MEDS: HEPARIN SOD INJ 5000 UNIT/ML VIAL 4000 UNIT IVP (06:43)
--- NOTE | 2024-08-16 08:56 | ESPR_ITS ---
Documentation for date of: 08/16/24 Subjective Subjective Interval history: This is a 64yo M admitted to the ICU on 08/10 for acute hypercapneic resp failure and intubated. He was found to be flu pos. He was extubated on the and reintubated on the . He is off of sedation and able to follow commands. He was switched to PSV 15/5/30% yesterday evening. He developed acute renal failure and is currently on HD. Critical Care Note Critical care time (min.): 43 Exam Vital Signs Temp Pulse Resp BP Pulse Ox O2 Del Method O2 Flow Rate 98.0 F 82 13 141/75 H 100 Mechanical Ventilation 15 08/16/24 04:00 08/16/24 07:01 08/16/24 06:24 08/16/24 07:01 08/16/24 07:01 08/15/24 16:00 08/13/24 19:36 FiO2 30 08/16/24 06:24 Narrative Exam Gen- NAD, awake alert and able to follow commands, GCS 11T, morbidly obese HEENT- NC/AT, mucosa hydrated, sclera anicteric, PERRL, ETT in place Chest- LCTAB, HRIR, systolic murmur present suggestive of , no chest wall lesions Abd- obese, s/nt/bs+ Ext- edema pitting 2-3+, moves all 4 extremities, pulses palp, no clubbing, no mottling Vent PSV 8/5/30% Drips tube feeds heparin gtt Physical Exam Completion Physical Exam Complete?: Yes Objective - Chief Legal Officer Labs 08/16/24 05:12 08/16/24 05:12 Labs: Laboratory Results - last 24 hr 08/15/24 08/15/24 08/16/24 11:50 17:25 04:14 WBC RBC Hgb Hct MCV MCH MCHC RDW Std Deviation Plt Count Neut % (Auto) Lymph % (Auto) [place] % (Auto) Eos % (Auto) Baso % (Auto) Neut # (Auto) Lymph # (Auto) [place] # (Auto) Eos # (Auto) Baso # (Auto) Immature Gran # (Auto) Absolute Nucleated RBC Immature Gran % Nucleated RBC % APTT 52.4 H Puncture Site Right Radial ABG pH 7.33 L D ABG pCO2 50 H D ABG pO2 149 H D ABG HCO3 26 ABG O2 Saturation 100 H ABG Base Excess 0 FiO2 35 Sodium 134 L Potassium 4.1 Chloride 94 L Carbon Dioxide 24.8 Anion Gap 15 BUN 41 H Creatinine 3.7 H D Estim Creat Clear Calc 32.6 L eGFR 17 L BUN/Creatinine Ratio 11 L Glucose 137 H Calculated Osmolality 280 Calcium 8.2 L Corrected Calcium Phosphorus Magnesium Total Bilirubin AST ALT Alkaline Phosphatase Total Protein Albumin Globulin Albumin/Globulin Ratio 08/16/24 05:12 WBC 10.8 H RBC 3.76 L Hgb 10.3 L Hct 31.5 L MCV 84 MCH 27.4 MCHC 32.7 RDW Std Deviation 47.8 H Plt Count 178 Neut % (Auto) 75 Lymph % (Auto) 12 [place] % (Auto) 9 Eos % (Auto) 1 Baso % (Auto) 0 Neut # (Auto) 8.1 H Lymph # (Auto) 1.3 [place] # (Auto) 1.0 H Eos # (Auto) 0.1 Baso # (Auto) 0.0 Immature Gran # (Auto) 0.28 H Absolute Nucleated RBC 0.00 Immature Gran % 3 H Nucleated RBC % 0 APTT 45.9 H Puncture Site ABG pH ABG pCO2 ABG pO2 ABG HCO3 ABG O2 Saturation ABG Base Excess FiO2 Sodium 135 L Potassium 3.9 Chloride 93 L Carbon Dioxide 25.0 Anion Gap 17 H BUN 51 H Creatinine 4.5 H* D Estim Creat Clear Calc 26.8 L eGFR 14 L* BUN/Creatinine Ratio 11 L Glucose 169 H Calculated Osmolality 287 Calcium 8.4 Corrected Calcium 8.8 Phosphorus 6.3 H Magnesium 2.5 Total Bilirubin 1.3 H AST 142 H ALT 446 H Alkaline Phosphatase 46 Total Protein 6.2 Albumin 3.5 Globulin 2.7 Albumin/Globulin Ratio 1.3 Assessment & Plan Additional Assessment Additional Assessment: In brief this is a 64yo admitted to the ICU with resp failure 2/2 influenza and ARDS. 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 h/o Sz h/o depression CV Volume overload- HD for vol removal Afib- rate controlled and on heparin gtt for AC - on cardizem and midodrine-> good BP therefore will decrease midodrine dose today Resp Acute hypercapenic resp failure- failed extubation attempt on 08/14 - doing well on MV with PSV - weening parameters obtained and pt doing well - extubate to bipap - concern for OHS Influenza A- improving COPD- on nebs Aspiration- on abx with improved FiO2 needs Renal ARIANA- currently with minimal UOP and on HD - weight has increased from 157kg on arrival to 161.4kg today - followed by nephrology and recs appreciated HypoNa- mild, monitor - hypervolemic hyponatremia GI Transaminitis- trending back down - multifactorial may be related to ischemia v toxic v congestion - improving - US shows fatty liver and enlarged pancreatic head which will require MRCP for eval once pt improved Endo DM- SSI and lantus - FS ACHS Heme DVT proph- on AC Leukocytosis- trending back down Anemia- slow drift down from 11 to 10 - near baseline - no active bleeding noted ID Aspiration PNA- on abx case d/w ICU team labs, imaging, records reviewed ~43ccmin required for eval, exam, review, intervention, discussion and formulation of POC for this critically ill pt with resp failure on MV at high risk for further and ongoing decompensation Provider Notation Provider Notation: Although this document has been carefully reviewed, there may still be some phonetic and other typographical errors. These errors are purely grammatical due to imperfections in the software program and should not be construed in any way to compromise the substance of the patient's medical care during this visit. Thank you for the opportunity and privilege in assisting you with this patient's care and management.
[2024-08-16] MEDS: ASPIRIN EC 81 MG TABEC PO (09:20)
[2024-08-16] MEDS: PANTOPRAZOLE INJ 40 MG VIAL IVP (09:20)
--- NOTE | 2024-08-16 09:26 | PD.RESPRO ---
Documentation for date of: 08/16/24 Subjective Subjective Interval history: 08/16/2024: Pt examined at bedside, telemetry reviewed rate controlled but still in afib. Pt is currently undergoing SBT, with plans to extubate today. BUN 51, Cr, 4.5, Mg 2.5 and potassium 3.9, WBC of 10.8, patient had dialysis yesterday with 1.9 L removed. Patient is off pressors, currently rate controlled with Cardizem 30 mg 3 times daily along with midodrine 10 mg tid. Please restart amiodarone drip and oral amio 200 mg bid if HR is high and BP low, however AST in the 140s, ALT in the 400sa and downtrending. No other complaints at this time. Severely voulme overloaded and continue dialysis with goal of atelast 3L /day if BP permits and additional sessions if pt can tolerate. Exam Vital Signs Temp Pulse Resp BP Pulse Ox O2 Del Method O2 Flow Rate 98.0 F 82 13 141/75 H 100 Mechanical Ventilation 15 08/16/24 04:00 08/16/24 07:01 08/16/24 06:24 08/16/24 07:01 08/16/24 07:01 08/15/24 16:00 08/13/24 19:36 FiO2 30 08/16/24 06:24 Narrative Exam General: AAOx0, dishelved, morbidly obese man, unkempt, bearded male HEENT: Moist mucous membranes, conjunctiva clear, EOMI,skin tags present Cardiovascular: Pansystolic murmur ausculated upon mitral valve and R sternal border, no carotid bruit appreciated, radial pulses +2 bilat, irregularly irregular, Radial A-line present, bilat wrist restraints present, R IJ Pulmonary: Undergoing SBT, coarse breath sounds GI: No ascites noted, bowel sounds present, however, abd obesity : R Femoral A line present, no scrotal swelling Extremities: venous stasis noted, unkempt feet, +3 pitting edema bilat, no Neuro: AAOx0 Objective Labs 08/16/24 05:12 08/16/24 05:12 Labs: Laboratory Results - last 24 hr 08/15/24 08/15/24 08/16/24 11:50 17:25 04:14 WBC RBC Hgb Hct MCV MCH MCHC RDW Std Deviation Plt Count Neut % (Auto) Lymph % (Auto) [place] % (Auto) Eos % (Auto) Baso % (Auto) Neut # (Auto) Lymph # (Auto) [place] # (Auto) Eos # (Auto) Baso # (Auto) Immature Gran # (Auto) Absolute Nucleated RBC Immature Gran % Nucleated RBC % APTT 52.4 H Puncture Site Right Radial ABG pH 7.33 L D ABG pCO2 50 H D ABG pO2 149 H D ABG HCO3 26 ABG O2 Saturation 100 H ABG Base Excess 0 FiO2 35 Sodium 134 L Potassium 4.1 Chloride 94 L Carbon Dioxide 24.8 Anion Gap 15 BUN 41 H Creatinine 3.7 H D Estim Creat Clear Calc 32.6 L eGFR 17 L BUN/Creatinine Ratio 11 L Glucose 137 H Calculated Osmolality 280 Calcium 8.2 L Corrected Calcium Phosphorus Magnesium Total Bilirubin AST ALT Alkaline Phosphatase Total Protein Albumin Globulin Albumin/Globulin Ratio 08/16/24 05:12 WBC 10.8 H RBC 3.76 L Hgb 10.3 L Hct 31.5 L MCV 84 MCH 27.4 MCHC 32.7 RDW Std Deviation 47.8 H Plt Count 178 Neut % (Auto) 75 Lymph % (Auto) 12 [place] % (Auto) 9 Eos % (Auto) 1 Baso % (Auto) 0 Neut # (Auto) 8.1 H Lymph # (Auto) 1.3 [place] # (Auto) 1.0 H Eos # (Auto) 0.1 Baso # (Auto) 0.0 Immature Gran # (Auto) 0.28 H Absolute Nucleated RBC 0.00 Immature Gran % 3 H Nucleated RBC % 0 APTT 45.9 H Puncture Site ABG pH ABG pCO2 ABG pO2 ABG HCO3 ABG O2 Saturation ABG Base Excess FiO2 Sodium 135 L Potassium 3.9 Chloride 93 L Carbon Dioxide 25.0 Anion Gap 17 H BUN 51 H Creatinine 4.5 H* D Estim Creat Clear Calc 26.8 L eGFR 14 L* BUN/Creatinine Ratio 11 L Glucose 169 H Calculated Osmolality 287 Calcium 8.4 Corrected Calcium 8.8 Phosphorus 6.3 H Magnesium 2.5 Total Bilirubin 1.3 H AST 142 H ALT 446 H Alkaline Phosphatase 46 Total Protein 6.2 Albumin 3.5 Globulin 2.7 Albumin/Globulin Ratio 1.3 ABG Interpretation ABG results: 08/10/24 08/10/2425 11:34 13:55 16:46 ABG pH 7.21 L 6.97 L* D 6.99 L* ABG pCO2 49 H 95 H* D 78 H* D ABG pO2 60 L 64 L 41 L* D ABG HCO3 20 22 19 L ABG O2 Saturation 86 L 80 L 58 L ABG Base Excess -8 L -12 L -14 L VBG pH VBG pCO2 VBG pO2 VBG Base Excess 08/10/24 08/10/24 08/10/24 19:28 20:48 21:13 ABG pH 7.01 L* Cancelled 7.08 L* ABG pCO2 75 H* Cancelled 69 H ABG pO2 47 L* Cancelled 61 L ABG HCO3 19 L Cancelled 20 ABG O2 Saturation 72 L Cancelled 87 L ABG Base Excess -13 L Cancelled -11 L VBG pH VBG pCO2 VBG pO2 VBG Base Excess 08/11/24 08/11/24 08/11/24 00:34 04:08 14:56 ABG pH 7.14 L* 7.16 L* 7.17 L* ABG pCO2 60 H 54 H 50 H ABG pO2 83 D 114 H D 72 L D ABG HCO3 20 19 L 18 L ABG O2 Saturation 96 99 H 93 ABG Base Excess -10 L -10 L -10 L VBG pH VBG pCO2 VBG pO2 VBG Base Excess 08/11/24 08/11/24 08/12/24 20:05 23:14 02:06 ABG pH 7.20 L 7.25 L 7.27 L ABG pCO2 55 H 49 H 50 H ABG pO2 82 L 93 90 ABG HCO3 21 22 23 ABG O2 Saturation 96 98 98 ABG Base Excess -7 L -6 L -4 L VBG pH VBG pCO2 VBG pO2 VBG Base Excess 08/12/24 08/12/24 08/12/24 06:30 10:13 10:45 ABG pH 7.34 L 7.31 L ABG pCO2 41 42 ABG pO2 177 H D 134 H D ABG HCO3 22 21 ABG O2 Saturation 100 H 100 H ABG Base Excess -4 L -5 L VBG pH 7.30 L VBG pCO2 43 VBG pO2 53 VBG Base Excess -5 L 0108/12/24 08/13/24 14:10 19:57 04:27 ABG pH 7.33 L 7.35 7.35 ABG pCO2 40 41 40 ABG pO2 114 H D 103 95 ABG HCO3 21 23 22 ABG O2 Saturation 99 H 99 H 98 ABG Base Excess -5 L -3 -4 L VBG pH VBG pCO2 VBG pO2 VBG Base Excess 08/13/24 08/13/24 08/13/24 20:14 21:45 23:54 ABG pH 7.26 L 7.26 L 7.26 L ABG pCO2 61 H D 60 H 59 H ABG pO2 84 201 H D 151 H D ABG HCO3 27 H 27 H 27 H ABG O2 Saturation 96 100 H 100 H ABG Base Excess -1 -1 -1 VBG pH VBG pCO2 VBG pO2 VBG Base Excess 08/14/24 08/14/24 08/15/24 02:49 18:04 06:30 ABG pH 7.39 D 7.32 L 7.47 H D ABG pCO2 41 D 53 H D 29 L D ABG pO2 292 H D 204 H D 193 H ABG HCO3 25 27 H 22 ABG O2 Saturation 101 H 100 H 99 H ABG Base Excess 0 0 -1 VBG pH VBG pCO2 VBG pO2 VBG Base Excess 08/16/24 04:14 ABG pH 7.33 L D ABG pCO2 50 H D ABG pO2 149 H D ABG HCO3 26 ABG O2 Saturation 100 H ABG Base Excess 0 VBG pH VBG pCO2 VBG pO2 VBG Base Excess Quality Measures Quality Measures none Assessment & Plan Assessment Current Active Medications: Generic Name Dose Route Start Last Admin Trade Name Freq PRN Reason Stop Dose Admin Acetaminophen 650 mg 08/11/24 08:37 Acetaminophen 325 Mg Tablet PO 09/10/24 05:56 Q6HR PRN FEVER >101 Aspirin 81 mg 08/11/24 09:00 08/16/24 09:20 Aspirin Ec 81 Mg Tabec PO 09/10/24 08:59 81 mg QDAY ASHWIN Administration Rosuvastatin 20 Mg 0 ea 08/09/24 21:00 08/13/24 22:47 PO 09/08/24 20:59 Not Given HS ASHWIN Dextrose 25 ml 08/09/24 15:31 Dextrose 50%-Water Inj 50 Ml Syringe IV 09/08/24 15:30 Q15MIN PRN BG 50-70 responsive npo pt Dextrose 50 ml 08/09/24 15:31 08/12/24 04:24 Dextrose 50%-Water Inj 50 Ml Syringe IV 09/08/24 15:30 50 ml Q15MIN PRN Administration BG <50 OR BG <70 & pt unresponsive Diltiazem HCl 30 mg 08/15/24 22:00 08/16/24 05:37 Diltiazem 30 Mg Tablet PO 09/14/24 21:59 30 mg TID ASHWIN Administration Glucagon 1 mg 08/09/24 15:31 Glucagon Inj 1 Mg Vial IM Q15MIN PRN BG <70, and no IV access Heparin Sodium (Porcine) 3,000 unit 08/12/24 15:11 08/15/24 14:52 Heparin Sod Inj 1000 Unit/Ml Vial 10 Ml INDWELLCAT 08/26/24 15:10 3,000 unit PRN PRN Administration DIALYSIS Heparin Sodium/Dextrose 25,000 unit in 250 mls @ 17.721 mls/hr 08/12/24 14:30 08/16/24 06:44 Heparin In D5w Ivpb IV 08/26/24 14:29 11 units/kg/hr .Q14H7M ASHWIN 17.721 mls/hr Titration Protocol 11 UNITS/KG/HR Albumin Human 25 gm in 100 mls @ 100 mls/min 08/12/24 15:11 08/15/24 14:00 Albuminar-25 Ivpb IV Infused PRN PRN Infusion DIALYSIS Ampicillin Sodium/Sulbactam 100 mls @ 200 mls/hr 08/13/24 12:00 08/16/24 05:36 Sodium 3 gm/ Sodium Chloride IV 08/20/24 11:59 200 mls/hr Q6HR [facility] Administration Insulin Glargine 15 unit 08/12/24 09:30 08/15/24 09:55 Insulin Glargine (Lantus) 5 Unit/0.05 Ml (Per 5 Units) SC 09/11/24 09:29 Not Given QDAY [facility] Insulin Human Lispro 0 unit 08/13/24 10:41 08/16/24 05:48 Insulin Lispro (Admelog) 1 Unit/0.01 Ml Unit SC 09/11/24 09:59 Not Given Q4HR ASHWIN Protocol Levalbuterol HCl 0.63 mg 08/13/24 19:15 08/16/24 06:18 Levalbuterol Rt 0.63 Mg/3 Ml Nebu INH 09/12/24 19:14 0.63 mg Q6HRRT ASHWIN Administration Midodrine 10 mg 08/14/24 14:00 08/16/24 05:37 Midodrine 5 Mg Tablet PO 09/13/24 13:59 10 mg TID ASHWIN Administration Mirtazapine 45 mg 08/09/24 21:00 08/10/24 21:28 Mirtazapine 15 Mg Tablet PO 09/08/24 20:59 45 mg HS ASHWIN Administration Ondansetron HCl 4 mg 08/09/24 15:20 Ondansetron Inj 2 Mg/Ml Inj 2 Ml IV 09/08/24 15:19 Q6H PRN NAUSEA OR VOMITING Protocol Pantoprazole Sodium 40 mg 08/09/24 15:30 08/16/24 09:20 Pantoprazole Inj 40 Mg Vial IVP 09/08/24 15:29 40 mg QDAY ASHWIN Administration Paroxetine HCl 20 mg 08/14/24 21:00 Paroxetine Hcl 10 Mg Tablet PO 09/13/24 20:59 HS ASHWIN Pharmacy Consult 1 each 08/11/24 20:59 Pharmacy Renal Dose Adjustment 1 Ea XX 09/10/24 20:58 PRN PRN CONSULT Risperidone 3 mg 08/14/24 21:00 Risperidone 1 Mg Tablet PO 09/13/24 20:59 HS ASHWIN Tamsulosin HCl 0.4 mg 08/09/24 16:00 08/15/24 10:14 Tamsulosin Hcl 0.4 Mg Capsule PO 09/08/24 15:59 Not Given QDAY ASHWIN Topiramate 50 mg 08/09/24 21:00 08/13/24 22:46 Topiramate 25 Mg Tablet PO 09/08/24 20:59 Not Given HS ASHWIN Plan Assessment Andrew is a 64 y/o male with past medical history of hypertension, hyperlipidemia, CAD, type 2 diabetes insulin-dependent, CHF, A-fib (on Eliquis 5mg twice daily), history of seizures who is currently admitted into the ICU for acute hypoxic hypercarbic respiratory failure requiring intubation and likely septic shock secondary to influenza A. #Septic shock secondary to #Influenza A #? Superimposed bacterial infection Influenza A positive Pt currently has A line at this time Blood cultures NG2D, sputum and MRSA negative Off pressors Plan: -Continue Tamiflu started for patient -Continue Unasyn #Afib with RVR, on home Eliquis [id number] HAS-BLED: 1 AC:Has home Eliquis Plan: ?We recommend continue with Cardizem 30 mg every 6 hours ?If patient is not rate controlled patient can restart Amio - Please restart amiodarone drip and oral amio 200 mg bid if HR is high and BP low, however AST in the 140s, ALT in the 400sa and downtrending. ?Continue heparin drip ?Keep potassium between 4 and 5 and magnesium greater than 2.0 at all times. ?Recommend to continue to monitor on telemetry Severely voulme overloaded and continue dialysis with goal of atelast 3L /day if BP permits and additional sessions if pt can tolerate. #Hx of CAD #Acute exacerbation of HFpEF with diastolic dysfunction #Mild aortic stenosis #NSTEMI type II, likely related to demand ischemia , resolved Echo shows EF 55-60%, normal LV, mild LVH, dilated RV, IVC dilated, AV stenosis Troponins have peaked No urine output past 24 hours, BUN/Cr 51 and 4.1 respectively Plan: -Patient is still fluid overloaded significantly, nephrology has been on board and continue dialysis. ?We recommend diuresis with Bumex if pt is able to produce urine ?Continue dialysis #IDDM #Hyperlipidemia #Hypertension Total Cholesterol: 83 LDL:30 A1c 7.1 Plan: Holding BP meds as he is hypotensive and on pressors Resumed home Rosuvastatin Primary team to handle BG #Acute hypoxic hypercarbic respiratory failure #Respiratory acidosis #? hx of COPD #? OHS Likely multifactorial, could be also due to flash pulmonary edema due rapid changes However, this could also be due to infectious cause, OHS, COPD Extensive smoking history, pt is most likely has COPD On ventilator currently, will adjust settings and PEEP to bring down acidosis ABG pH: 7.35, PCO2 40 Plan: -Treat underlying infection -Pulmonary hygiene -Chest physiotherapy -ABGS -Consider levalbuterol considering afib hx #ARIANA, prerenal #Shock liver #History of depression #History of seizures #Normocytic Anemia #Mild Hyponatremia Hypo-osmolar, Hypervolemic Patient seen and care discussed with my attending physician, Dr. Karrie Merritt, PGY-1 Attending Provider Attestation/Addendum I have personally seen and examined the patient separately on the above date of service and discussed the plan of care with the resident. I reviewed the resident Dr. Gaming consultation progress note and agree with the resident findings and plan in the note above and have also edited the documentation to reflect my findings and plan. Nacho Yoon M.D. Interventional Cardiology
--- NOTE | 2024-08-16 10:15 | ESPR_ITS ---
Documentation for date of: 08/16/24 Subjective Subjective Interval history: Andrew Bella is a 64-year-old male with a past medical history of hypertension, hyperlipidemia, CAD, insulin-dependent type 2 diabetes mellitus, CHF, A-fib, depression, and history of seizures who recently moved from [place] and initially presented to ED on 08/09 with dyspnea and productive cough with associated pleuritic chest pain, cough, wheezing, and weakness. Also noted to have bilateral lower extremity edema and orthopnea, but denied paroxysmal nocturnal dyspnea. In ED, vitals significant for temperature of 100.8 ?F and on room air. Labs showed BUN 29, 1.6, GFR 48, glucose 228, LDH 256, BNP 275, UA 4+ glucose, U tox negative. Influenza A positive. Patient subsequently started on Tamiflu as well as Lasix for possible CHF exacerbation. Throughout hospital course, on 08/10 patient has had 2 rapid responses very well for desaturation requiring BiPAP and IV steroids/antibiotics and the second for hypoxia with altered mentation, requiring intubation for airway protection prompting transfer to ICU for further care. Around time of intubation, ABG showed pH 6.97, pCO2 97. MAP noted to drop below 65 and was started on Levophed and vasopressin. Cardiology consulted for further evaluation of possible CHF exacerbation and A-fib. Although unable to determine baseline renal function, creatinine increased from 1.8 to 2.9 overnight and so nephrology was consulted. Given that patient is intubated, history obtained from chart review. 08/11: Patient seen and examined in ICU, intubated and undergoing cooling measures for fever of 103.1 ?F. Creatinine noted to jump from 1.8 to 2.9 overnight. Suspect acute tubular necrosis in setting of hypotension with MAP less than 65 mmHg noted on 08/10. Also associated increase in lactic acid from 2.2 to 4.6 as well as overnight increase in LFTs (AST 17 to 553 and AST from 10 to 54). Will follow-up on urine studies as well as renal ultrasound. 08/12: Patient seen and examined in ICU, intubated and ventilated. Labs and orders reviewed. Na 129, BUN 67, Cr steadily increasing to 4.0, Ca 8.2. LFTs remain elevated (AST 423, ALT 364). Produced less than 20 cc of urine overnight. Still pending urine studies. Vancomycin changed to linezolid, continuing azithromycin and Zosyn. CTA chest: Bilateral pneumonia with arts pattern. Repeat CXR showed worsening of pneumonia and ARDS. DC'd IV steroids and amlodipine. Vas-Cath placed for hemodialysis. 08/13: Patient seen and examined in ICU, inbutaed and ventilated. Labs and orderse reviewed. Na stable at 129, BUN 66 and Cr again increased from 4.0 to 4.2. LFTs continue to uptrend (AST 688, ALT 597). Patient was given bumex x1 yesterday but had minimal urine output and so he underwent a session of dialysis for two hours with plans for hemodialysis again today. 08/14: Currently seen in ICU. Remains on ventilator and pressors. Blood pressure 123/76, heart rate 105. WBC 11.3, hemoglobin 10, platelets 158. Sodium 131, potassium 4, BUN 58, creatinine 4, total bilirubin 1.4, AST 778, ALT 752, alk phos 42, total protein 5.8, ammonia level 18, albumin 3.3. Abdominal x-ray showed no air in distended stomach. Chest x-ray showed extensive bilateral pneumonia with fluid overload. 08/15: Currently seen in ICU. Remains on ventilator. Blood sugar 123. Blood pressure 107/67, heart rate 110 to 130. WBC 11.9, hemoglobin 10, platelets 171. ABG showing pH 7.47, pCO2 29, pO2 193, bicarbonate 22.Sodium 133, potassium 3.8, bicarbonate 23.4, BUN 52, creatinine 4.3, calcium 9, phosphorus 3.8, AST 455, ALT 669, total bilirubin 1.3, albumin 3.1 Chest x-ray showed extensive bilateral pneumonia with fluid overload. Will receive extra session of dialysis today. Goal will be to increase bicarbonate for compensation for respiratory acidosis. 08/16: Seen and examined in ICU. Per ICU team, possible trial for extubation today and will plan for hemodialysis afterwards. Vitals stable, currently on mechanical ventilation, no longer on pressors other than midodrine. WBC downtrending from 12 to 10.8, hemoglobin stable at 10. ABG showing pH 7.33, pCO2 50, pO2 149. Na 135, K 3.9, BUN 51, Cr increased from 3.7 to 4.5, phosphorus increased from 3.8 to 6.3. LFTs improving, AST 142 and ALT 446. Exam Vital Signs Temp Pulse Resp BP Pulse Ox O2 Del Method O2 Flow Rate 98.0 F 84 18 141/75 H 99 Mechanical Ventilation 15 08/16/24 04:00 08/16/24 10:00 08/16/24 10:00 08/16/24 07:01 08/16/24 10:00 08/15/24 16:00 08/13/24 19:36 FiO2 30 08/16/24 10:00 Narrative Exam General: alert, ventilated and off of sedation, morbidly obese HEENT: NC/AT, mucous membranes moist, bilateral sclera anicteric Cardiovascular: systolic murmur, regular rate, S1/S2 present Pulmonary: coarse lung sounds appreciated bilaterally, intubated and ventilated Abdominal: soft, non-tender, non-distended, no rebound/guarding, normal bowel sounds present Musculoskeletal: 2+ bilateral edema Skin: venous stasis changes, cool, dry, intact Objective Labs 08/17/24 05:47 08/17/24 05:47 Labs: Laboratory Results - last 24 hr 08/15/24 08/15/24 08/16/24 11:50 17:25 04:14 WBC RBC Hgb Hct MCV MCH MCHC RDW Std Deviation Plt Count Neut % (Auto) Lymph % (Auto) [place] % (Auto) Eos % (Auto) Baso % (Auto) Neut # (Auto) Lymph # (Auto) [place] # (Auto) Eos # (Auto) Baso # (Auto) Immature Gran # (Auto) Absolute Nucleated RBC Immature Gran % Nucleated RBC % APTT 52.4 H Puncture Site Right Radial ABG pH 7.33 L D ABG pCO2 50 H D ABG pO2 149 H D ABG HCO3 26 ABG O2 Saturation 100 H ABG Base Excess 0 FiO2 35 Sodium 134 L Potassium 4.1 Chloride 94 L Carbon Dioxide 24.8 Anion Gap 15 BUN 41 H Creatinine 3.7 H D Estim Creat Clear Calc 32.6 L eGFR 17 L BUN/Creatinine Ratio 11 L Glucose 137 H Calculated Osmolality 280 Calcium 8.2 L Corrected Calcium Phosphorus Magnesium Total Bilirubin AST ALT Alkaline Phosphatase Total Protein Albumin Globulin Albumin/Globulin Ratio 08/16/24 05:12 WBC 10.8 H RBC 3.76 L Hgb 10.3 L Hct 31.5 L MCV 84 MCH 27.4 MCHC 32.7 RDW Std Deviation 47.8 H Plt Count 178 Neut % (Auto) 75 Lymph % (Auto) 12 [place] % (Auto) 9 Eos % (Auto) 1 Baso % (Auto) 0 Neut # (Auto) 8.1 H Lymph # (Auto) 1.3 [place] # (Auto) 1.0 H Eos # (Auto) 0.1 Baso # (Auto) 0.0 Immature Gran # (Auto) 0.28 H Absolute Nucleated RBC 0.00 Immature Gran % 3 H Nucleated RBC % 0 APTT 45.9 H Puncture Site ABG pH ABG pCO2 ABG pO2 ABG HCO3 ABG O2 Saturation ABG Base Excess FiO2 Sodium 135 L Potassium 3.9 Chloride 93 L Carbon Dioxide 25.0 Anion Gap 17 H BUN 51 H Creatinine 4.5 H* D Estim Creat Clear Calc 26.8 L eGFR 14 L* BUN/Creatinine Ratio 11 L Glucose 169 H Calculated Osmolality 287 Calcium 8.4 Corrected Calcium 8.8 Phosphorus 6.3 H Magnesium 2.5 Total Bilirubin 1.3 H AST 142 H ALT 446 H Alkaline Phosphatase 46 Total Protein 6.2 Albumin 3.5 Globulin 2.7 Albumin/Globulin Ratio 1.3 ABG Interpretation ABG results: 08/10/24 08/10/24 08/10/24 11:34 13:55 16:46 ABG pH 7.21 L 6.97 L* D 6.99 L* ABG pCO2 49 H 95 H* D 78 H* D ABG pO2 60 L 64 L 41 L* D ABG HCO3 20 22 19 L ABG O2 Saturation 86 L 80 L 58 L ABG Base Excess -8 L -12 L -14 L VBG pH VBG pCO2 VBG pO2 VBG Base Excess 08/10/24 08/10/24 08/10/24 19:28 20:48 21:13 ABG pH 7.01 L* Cancelled 7.08 L* ABG pCO2 75 H* Cancelled 69 H ABG pO2 47 L* Cancelled 61 L ABG HCO3 19 L Cancelled 20 ABG O2 Saturation 72 L Cancelled 87 L ABG Base Excess -13 L Cancelled -11 L VBG pH VBG pCO2 VBG pO2 VBG Base Excess 08/11/24 08/11/24 08/11/24 00:34 04:08 14:56 ABG pH 7.14 L* 7.16 L* 7.17 L* ABG pCO2 60 H 54 H 50 H ABG pO2 83 D 114 H D 72 L D ABG HCO3 20 19 L 18 L ABG O2 Saturation 96 99 H 93 ABG Base Excess -10 L -10 L -10 L VBG pH VBG pCO2 VBG pO2 VBG Base Excess 08/11/24 08/11/24 08/12/24 20:05 23:14 02:06 ABG pH 7.20 L 7.25 L 7.27 L ABG pCO2 55 H 49 H 50 H ABG pO2 82 L 93 90 ABG HCO3 21 22 23 ABG O2 Saturation 96 98 98 ABG Base Excess -7 L -6 L -4 L VBG pH VBG pCO2 VBG pO2 VBG Base Excess 08/12/24 08/12/24 08/12/24 06:30 10:13 10:45 ABG pH 7.34 L 7.31 L ABG pCO2 41 42 ABG pO2 177 H D 134 H D ABG HCO3 22 21 ABG O2 Saturation 100 H 100 H ABG Base Excess -4 L -5 L VBG pH 7.30 L VBG pCO2 43 VBG pO2 53 VBG Base Excess -5 L 08/12/24 08/12/24 08/13/24 14:10 19:57 04:27 ABG pH 7.33 L 7.35 7.35 ABG pCO2 40 41 40 ABG pO2 114 H D 103 95 ABG HCO3 21 23 22 ABG O2 Saturation 99 H 99 H 98 ABG Base Excess -5 L -3 -4 L VBG pH VBG pCO2 VBG pO2 VBG Base Excess 08/13/24 08/13/24 08/13/24 20:14 21:45 23:54 ABG pH 7.26 L 7.26 L 7.26 L ABG pCO2 61 H D 60 H 59 H ABG pO2 84 201 H D 151 H D ABG HCO3 27 H 27 H 27 H ABG O2 Saturation 96 100 H 100 H ABG Base Excess -1 -1 -1 VBG pH VBG pCO2 VBG pO2 VBG Base Excess 08/14/24 08/14/24 08/15/24 02:49 18:04 06:30 ABG pH 7.39 D 7.32 L 7.47 H D ABG pCO2 41 D 53 H D 29 L D ABG pO2 292 H D 204 H D 193 H ABG HCO3 25 27 H 22 ABG O2 Saturation 101 H 100 H 99 H ABG Base Excess 0 0 -1 VBG pH VBG pCO2 VBG pO2 VBG Base Excess 08/16/24 04:14 ABG pH 7.33 L D ABG pCO2 50 H D ABG pO2 149 H D ABG HCO3 26 ABG O2 Saturation 100 H ABG Base Excess 0 VBG pH VBG pCO2 VBG pO2 VBG Base Excess Quality Measures Quality Measures none Assessment & Plan Assessment Current Active Medications: Generic Name Dose Route Start Last Admin Trade Name Freq PRN Reason Stop Dose Admin Acetaminophen 650 mg 08/11/24 08:37 Acetaminophen 325 Mg Tablet PO 09/10/24 05:56 Q6HR PRN FEVER >101 Aspirin 81 mg 08/11/24 09:00 08/16/24 09:20 Aspirin Ec 81 Mg Tabec PO 09/10/24 08:59 81 mg QDAY ASHWIN Administration Rosuvastatin 20 Mg 0 ea 08/09/24 21:00 08/13/24 22:47 PO 09/08/24 20:59 Not Given HS ASHWIN Dextrose 25 ml 08/09/24 15:31 Dextrose 50%-Water Inj 50 Ml Syringe IV 09/08/24 15:30 Q15MIN PRN BG 50-70 responsive npo pt Dextrose 50 ml 08/09/24 15:31 08/12/24 04:24 Dextrose 50%-Water Inj 50 Ml Syringe IV 09/08/24 15:30 50 ml Q15MIN PRN Administration BG <50 OR BG <70 & pt unresponsive Diltiazem HCl 30 mg 08/15/24 22:00 08/16/24 05:37 Diltiazem 30 Mg Tablet PO 09/14/24 21:59 30 mg TID ASHWIN Administration Glucagon 1 mg 08/09/24 15:31 Glucagon Inj 1 Mg Vial IM Q15MIN PRN BG <70, and no IV access Heparin Sodium (Porcine) 3,000 unit 08/12/24 15:11 08/15/24 14:52 Heparin Sod Inj 1000 Unit/Ml Vial 10 Ml INDWELLCAT 08/26/24 15:10 3,000 unit PRN PRN Administration DIALYSIS Heparin Sodium/Dextrose 25,000 unit in 250 mls @ 17.721 mls/hr 08/12/24 14:30 08/16/24 06:44 Heparin In D5w Ivpb IV 08/26/24 14:29 11 units/kg/hr .Q14H7M ASHWIN 17.721 mls/hr Titration Protocol 11 UNITS/KG/HR Albumin Human 25 gm in 100 mls @ 100 mls/min 08/12/24 15:11 08/15/24 14:00 Albuminar-25 Ivpb IV Infused PRN PRN Infusion DIALYSIS Ampicillin Sodium/Sulbactam 100 mls @ 200 mls/hr 08/13/24 12:00 08/16/24 05:36 Sodium 3 gm/ Sodium Chloride IV 08/20/24 11:59 200 mls/hr Q6HR ASHWIN Administration Insulin Glargine 15 unit 08/12/24 09:30 08/16/24 09:31 Insulin Glargine (Lantus) 5 Unit/0.05 Ml (Per 5 Units) SC 09/11/24 09:29 Not Given QDAY ASHWIN Insulin Human Lispro 0 unit 08/13/24 10:41 08/16/24 05:48 Insulin Lispro (Admelog) 1 Unit/0.01 Ml Unit SC 09/11/24 09:59 Not Given Q4HR ASHWIN Protocol Levalbuterol HCl 0.63 mg 08/13/24 19:15 08/16/24 06:18 Levalbuterol Rt 0.63 Mg/3 Ml Nebu INH 09/12/24 19:14 0.63 mg Q6HRRT ASHWIN Administration Midodrine 10 mg 08/14/24 14:00 08/16/24 05:37 Midodrine 5 Mg Tablet PO 09/13/24 13:59 10 mg TID ASHWIN Administration Mirtazapine 45 mg 08/09/24 21:00 08/10/24 21:28 Mirtazapine 15 Mg Tablet PO 09/08/24 20:59 45 mg HS ASHWIN Administration Ondansetron HCl 4 mg 08/09/24 15:20 Ondansetron Inj 2 Mg/Ml Inj 2 Ml IV 09/08/24 15:19 Q6H PRN NAUSEA OR VOMITING Protocol Pantoprazole Sodium 40 mg 08/09/24 15:30 08/16/24 09:20 Pantoprazole Inj 40 Mg Vial IVP 09/08/24 15:29 40 mg QDAY ASHWIN Administration Paroxetine HCl 20 mg 08/14/24 21:00 Paroxetine Hcl 10 Mg Tablet PO 09/13/24 20:59 HS [facility] Pharmacy Consult 1 each 08/11/24 20:59 Pharmacy Renal Dose Adjustment 1 Ea XX 09/10/24 20:58 PRN PRN CONSULT Risperidone 3 mg 08/14/24 21:00 Risperidone 1 Mg Tablet PO 09/13/24 20:59 HS [facility] Tamsulosin HCl 0.4 mg 08/09/24 16:00 08/15/24 10:14 Tamsulosin Hcl 0.4 Mg Capsule PO 09/08/24 15:59 Not Given QDAY [facility] Topiramate 50 mg 08/09/24 21:00 08/13/24 22:46 Topiramate 25 Mg Tablet PO 09/08/24 20:59 Not Given [facility] Plan Andrew Bella is a 64-year-old male with a past medical history of hypertension, hyperlipidemia, CAD, insulin-dependent type 2 diabetes mellitus, CHF, A-fib, depression, and history of seizures who initially presented to ED on 08/09 with dyspnea and productive cough with associated pleuritic chest pain, admitted for management of influenza PNA vs CHF exacerbation. Upgraded on 08/10 for airway protection requiring intubation and nephrology consulted in setting of acute kidney injury and possible acute tubular necrosis. #Acute kidney injury #Acute tubular necrosis Renal US showed mild bilateral renal parenchymal scar formation without hydronephrosis. Critical care time spent more than 35 minutes regarding plan of care and disease management. Plan of care discussed with the dialysis nurse. Please see dialysis flowsheet for further details. ? Plan for dialysis today after SBT ? Avoid nephrotoxic agents ? Renally dose medications #Acute metabolic encephalopathy #History of seizures #Shock, distributive versus obstructive versus cardiogenic #HFpEF (EF 55 to 60%) #Atrial fibrillation #Elevated troponin #Transaminitis-worsening liver enzymes #Hypertension #Hyperlipidemia #CAD #Acute hypoxic/hypercapnic respiratory failure, secondary to #Influenza A pneumonia #COPD #Type 2 diabetes mellitus, insulin-dependent ? Continue management per ICU team. ----- Plan discussed with attending physician Dr. Jean-Claude Khan MD PGY-1 Internal Medicine Attending Provider Attestation/Addendum Patient seen and examined with resident physician Dr. Angel. Note reviewed, agree with findings and recommendations. Currently seen in ICU. On ventilator. Off pressors. Blood pressure seems to be acceptable. Will order extra sequential ultrafiltration today owing to his a significant fluid overload. Hemodialysis/UF for 3.5 hours, sequential ultrafiltration 2-3 L ordered, Epogen 6000, no heparin ordered. Plan of care discussed with the dialysis nurse. Please see dialysis flowsheet for further details. plan of care discussed with ICU team.
--- NOTE | 2024-08-16 11:27 | ESPR_ITS ---
<Statement entered by Светлана Dotson DO - 08/16/24 20:43> Senior attestation: Patient was examined and case was reviewed with team including attending physician. Note reviewed, I agree with most of its contents and agree with the patient's care. No overnight events reported, patient was transitioned to SBT this morning and extubated to BiPAP without complications, was noted to have oxygen saturations in upper 90s throughout the day on BiPAP. Mentation assessed throughout the day, patient was able to follow commands and did not appear obtunded. Heart rate has been controlled on diltiazem, will continue with diltiazem and avoiding amiodarone for concerns of hepatotoxicity. Continue IV heparin for anticoagulation, will transition to PO anticoagulation once patient is able to safely consume PO medications. Patient in stable condition for downgrade to tele floor, advise BIPAP hs prn and continued diuresis with medications or dialysis if advised by nephrology team. Patient's psychiatric/seizure medications have been held, may have contributed to patient's mentation changes, may require further optimization of psychiatric/seizure medications. Светлана Dotson DO PGY-3 Documentation for date of: 08/16/24 Subjective Subjective Interval history: Mr. Bella is a 64-year-old male with a past medical history of hypertension, hyperlipidemia, CAD, diabetes mellitus type 2 insulin-dependent, CHF (unknown ejection fraction), atrial fibrillation, history of seizures, who presented to [facility] emergency room with acute increasing dyspnea and increasing cough. Patient stated that he has been having increasing pleuritic chest pain secondary to productive cough. Patient stated his cough is productive. Come into the emergency room today after being unable to reach the restroom because of increasing shortness of breath. Patient denied typically here with increasing wheezing. Patient denied any sick contacts. Increased perspiration. Increased orthopnea. Increasing shortness of breath. Negative paroxysmal nocturnal orthopnea. Positive for diarrhea. Increased bilateral swelling. History of BPH. History of depression. Patient was admitted on 08/09/2024 for CHF exacerbation and influenza A. Patient history of recent travel, recently moved to [place] from [place]. Patient had a rapid response called earlier this morning for low SpO2 84% despite 8 L of oxygen patient had increased work of breathing was tachypneic with circulation intact, patient was started on IV steroids, IV antibiotics. Eventually patient had another rapid response called for altered mental status, patient was noted to be unresponsive to verbal Kaman, responsive to only painful stimuli, patient is GCS of 7 was unable to protect airway, aspiration noted at bedside and patient was emergently intubated. At bedside patient noted to have pink frothy aspirate, high suspicion of pulmonary edema, patient upgraded to intensive care unit for further management. Patient eventually had a central line and arterial line placed. Attempt was made to reach out to patient's emergency contact, but none was available, eventually contacted patient's friend and primary decision maker Rodrigo Schneider. 08/11/24:Patient seen and examined at bedside, overnight significant improvement in patient's, PS this morning 7.16, pCO2 54, bicarb 19.9, high suspicion of underlying shock distributive due to aspiration pneumonia, ordered CTA chest along with CT abdomen pelvis, no known source for sepsis, CTA shows significant bilateral pneumonia with ARDS pattern, patient's antibiotic therapy optimized to Zosyn, linezolid and azithromycin. Patient is also on Tamiflu due to underlying influenza, methylprednisone discontinued, underlying respiratory disease from aspiration pneumonia, less likely COPD exacerbation, will continue with DuoNeb every 6 hours, will hold Lasix and discontinue vancomycin due to worsening renal function, high suspicion of acute tubular necrosis due to sepsis, elevated LFTs, high possibility of shock liver, patient's blood glucose significantly elevated started on insulin gtt. significant elevation of Pro-Donte noted today, nephrology was consulted due to worsening renal function. 08/12/24: Patient seen and examined at bedside, overnight patient developed atrial fibrillation, started on, patient was given Versed push x 1, insulin drip was discontinued around 3 AM due to normalization of blood glucose levels. Patient seen at bedside this morning, minimal urine output, was given Bumex 2 mg x 1, no urine output noted, discussed with vitreo retinal surgeon patient will receive dialysis treatment today goal to remove about 1 L fluid, patient's pressor regimen optimized to Levophed, phenylephrine and vasopressin, will decrease Levophed dose as patient has atrial fibrillation with RVR to minimize increase in heart rate due to Levophed. Patient was started on heparin drip due to underlying atrial fibrillation, will start on tube feeds today, started on 15 units Lantus and sliding scale insulin. Patient's heart rate not well- controlled on amiodarone drip, will consider digoxin 0.5 if needed. Potassium and magnesium optimized at more than 4 and more than 2 respectively. Will continue to monitor patient. 08/13/24: Patient seen and examined at bedside, no acute overnight events, patient was on fentanyl this morning, was started on pressure support this morning, marked improvement noted, marked improvement noted in patient's x-ray, patient requiring minimal pressor support, on low-dose Levophed this morning, RSBI around 18 on pressure support, NIF trial at bedside patient responded well, patient received dialysis treatment yesterday, had about 1 L fluid removed, patient's heart rate continues to remain elevated heart rate around 110-120, currently on amiodarone and heparin drip. Patient was extubated later in the day as sedation wore off, patient tolerating extubation well, patient's point of contact updated on patient's condition at bedside. Antibiotic therapy optimized to IV Unasyn, patient's LFTs continue to remain elevated, otherwise we will continue to maintain MAP of more than 65 on midodrine. Will continue to monitor patient. 08/14/24: Patient seen and examined at bedside, overnight patient was reintubated, started on sedation due to concern of altered mental status, staring spells and being unresponsive, did not respond to BiPAP. Patient is awake this morning responding to questions, alert, responding to questions, mean arterial pressure for patient is more than 65 is not needing pressor support to maintain a MAP of more than 65, currently on midodrine, will increase midodrine dose to 10 mg 3 times daily as patient is needing pressor support during dialysis. Patient did receive dialysis yesterday, had about 1 L fluid removed and is scheduled for dialysis again today. Will discontinue amiodarone due to possible hepatotoxicity, discontinued rosuvastatin, will hold topiramate and other psych medications. Patient is started on pressure support, plan to keep patient on pressure support for longer duration, monitor mentation and will consider extubation in a.m. Will continue antibiotic therapy with IV Unasyn, will continue to monitor patient. 08/15/24: Patient seen and examined at bedside, overnight patient was on a CMP, end-tidal CO2 14 noted on monitor, ABG from this morning shows patient is alkalotic, pH 7.47, pCO2 29, patient placed on pressure support, ABG from last evening shows pCO2 of 53 pH 7.32, patient was on pressure support all day yesterday, patient has active history of smoking in the past, has history of COPD, possible obesity hypoventilation syndrome, has had no pressor requirement currently on midodrine 10 three times daily. Patient will receive dialysis today, discussed with nephrology, will titrate bicarb during dialysis. Patient will be given Cardizem for atrial fibrillation, will start on p.o. Cardizem after. Patient's arterial line was discontinued, will continue Unasyn, heparin drip. Will continue to hold amiodarone, liver function has shown improvement. Will continue Lantus 15 units and sliding scale insulin with blood glucose goal of 140-200, will continue to monitor patient, will continue pressure support overnight unless patient has respiratory decline will change patient to assist- control. Will continue to monitor patient. 08/16/24: Patient seen and examined at bedside, no acute overnight events, patient tolerated pressure support well overnight, ABG from this morning shows 7.33, pCO2 50, bicarb 26 patient chronic CO2 retainer due to history of COPD and also possible hypoventilation syndrome, patient on midodrine 10 3 times daily for blood pressure support. Started on diltiazem 30 mg 3 times daily, will continue. Significant improvement noted in patient's AST ALT today, will continue to monitor. WBC count trending down, no fevers noted. Patient is also on heparin drip currently due to underlying atrial fibrillation we will continue. Patient extubated earlier this morning today, started on BiPAP, patient saturating well on IPAP 10/EPAP 5, with FiO2 30%. Will obtain a swallow screen and start patient on diet, patient stable to be downgraded to telemetry today, hospitalist team will resume care for patient in a.m. Exam Vital Signs Temp Pulse Resp BP Pulse Ox O2 Del Method O2 Flow Rate 98.4 F 91 12 127/78 99 Mechanical Ventilation 15 08/16/24 08:01 08/16/24 11:00 08/16/24 11:00 08/16/24 11:00 08/16/24 11:00 08/16/24 08:01 08/13/24 19:36 FiO2 30 08/16/24 10:00 Narrative Exam General: AAOx3, on BiPAP, off sedation dishelved, morbidly obese man, unkempt, bearded male HEENT: Moist mucous membranes, conjunctiva clear, EOMI,skin tags present, right IJ central line Cardiovascular: Pansystolic murmur ausculated upon mitral valve and R sternal border, no carotid bruit appreciated, radial pulses +2 bilat, irregularly irregular, bilat wrist restraints present Pulmonary: Bilateral air entry noted, no crackles GI: No ascites noted, bowel sounds present, however, abd obesity, scrotal edema noted Extremities: venous stasis noted, unkempt feet, ecchymosis noted, +3 bilat edema in LE Neuro: A&O x 3, responding to commands, responsive, able to move all 4 extremities. Objective Labs 08/16/24 05:12 08/16/24 05:12 Labs: Laboratory Results - last 24 hr 08/15/24 08/15/24 08/16/24 11:50 17:25 04:14 WBC RBC Hgb Hct MCV MCH MCHC RDW Std Deviation Plt Count Neut % (Auto) Lymph % (Auto) [place] % (Auto) Eos % (Auto) Baso % (Auto) Neut # (Auto) Lymph # (Auto) [place] # (Auto) Eos # (Auto) Baso # (Auto) Immature Gran # (Auto) Absolute Nucleated RBC Immature Gran % Nucleated RBC % APTT 52.4 H Puncture Site Right Radial ABG pH 7.33 L D ABG pCO2 50 H D ABG pO2 149 H D ABG HCO3 26 ABG O2 Saturation 100 H ABG Base Excess 0 FiO2 35 Sodium 134 L Potassium 4.1 Chloride 94 L Carbon Dioxide 24.8 Anion Gap 15 BUN 41 H Creatinine 3.7 H D Estim Creat Clear Calc 32.6 L eGFR 17 L BUN/Creatinine Ratio 11 L Glucose 137 H Calculated Osmolality 280 Calcium 8.2 L Corrected Calcium Phosphorus Magnesium Total Bilirubin AST ALT Alkaline Phosphatase Total Protein Albumin Globulin Albumin/Globulin Ratio 08/16/24 05:12 WBC 10.8 H RBC 3.76 L Hgb 10.3 L Hct 31.5 L MCV 84 MCH 27.4 MCHC 32.7 RDW Std Deviation 47.8 H Plt Count 178 Neut % (Auto) 75 Lymph % (Auto) 12 [place] % (Auto) 9 Eos % (Auto) 1 Baso % (Auto) 0 Neut # (Auto) 8.1 H Lymph # (Auto) 1.3 [place] # (Auto) 1.0 H Eos # (Auto) 0.1 Baso # (Auto) 0.0 Immature Gran # (Auto) 0.28 H Absolute Nucleated RBC 0.00 Immature Gran % 3 H Nucleated RBC % 0 APTT 45.9 H Puncture Site ABG pH ABG pCO2 ABG pO2 ABG HCO3 ABG O2 Saturation ABG Base Excess FiO2 Sodium 135 L Potassium 3.9 Chloride 93 L Carbon Dioxide 25.0 Anion Gap 17 H BUN 51 H Creatinine 4.5 H* D Estim Creat Clear Calc 26.8 L eGFR 14 L* BUN/Creatinine Ratio 11 L Glucose 169 H Calculated Osmolality 287 Calcium 8.4 Corrected Calcium 8.8 Phosphorus 6.3 H Magnesium 2.5 Total Bilirubin 1.3 H AST 142 H ALT 446 H Alkaline Phosphatase 46 Total Protein 6.2 Albumin 3.5 Globulin 2.7 Albumin/Globulin Ratio 1.3 ABG Interpretation ABG results: 08/10/24 08/10/24 08/10/24 11:34 13:55 16:46 ABG pH 7.21 L 6.97 L* D 6.99 L* ABG pCO2 49 H 95 H* D 78 H* D ABG pO2 60 L 64 L 41 L* D ABG HCO3 20 22 19 L ABG O2 Saturation 86 L 80 L 58 L ABG Base Excess -8 L -12 L -14 L VBG pH VBG pCO2 VBG pO2 VBG Base Excess 08/10/24 08/10/24 08/10/24 19:28 20:48 21:13 ABG pH 7.01 L* Cancelled 7.08 L* ABG pCO2 75 H* Cancelled 69 H ABG pO2 47 L* Cancelled 61 L ABG HCO3 19 L Cancelled 20 ABG O2 Saturation 72 L Cancelled 87 L ABG Base Excess -13 L Cancelled -11 L VBG pH VBG pCO2 VBG pO2 VBG Base Excess 08/11/24 08/11/24 08/11/24 00:34 04:08 14:56 ABG pH 7.14 L* 7.16 L* 7.17 L* ABG pCO2 60 H 54 H 50 H ABG pO2 83 D 114 H D 72 L D ABG HCO3 20 19 L 18 L ABG O2 Saturation 96 99 H 93 ABG Base Excess -10 L -10 L -10 L VBG pH VBG pCO2 VBG pO2 VBG Base Excess 08/11/24 08/11/24 08/12/24 20:05 23:14 02:06 ABG pH 7.20 L 7.25 L 7.27 L ABG pCO2 55 H 49 H 50 H ABG pO2 82 L 93 90 ABG HCO3 21 22 23 ABG O2 Saturation 96 98 98 ABG Base Excess -7 L -6 L -4 L VBG pH VBG pCO2 VBG pO2 VBG Base Excess 08/12/24 08/12/24 08/12/24 06:30 10:13 10:45 ABG pH 7.34 L 7.31 L ABG pCO2 41 42 ABG pO2 177 H D 134 H D ABG HCO3 22 21 ABG O2 Saturation 100 H 100 H ABG Base Excess -4 L -5 L VBG pH 7.30 L VBG pCO2 43 VBG pO2 53 VBG Base Excess -5 L 08/12/24 08/12/24 08/13/24 14:10 19:57 04:27 ABG pH 7.33 L 7.35 7.35 ABG pCO2 40 41 40 ABG pO2 114 H D 103 95 ABG HCO3 21 23 22 ABG O2 Saturation 99 H 99 H 98 ABG Base Excess -5 L -3 -4 L VBG pH VBG pCO2 VBG pO2 VBG Base Excess 08/13/24 08/13/24 08/13/24 20:14 21:45 23:54 ABG pH 7.26 L 7.26 L 7.26 L ABG pCO2 61 H D 60 H 59 H ABG pO2 84 201 H D 151 H D ABG HCO3 27 H 27 H 27 H ABG O2 Saturation 96 100 H 100 H ABG Base Excess -1 -1 -1 VBG pH VBG pCO2 VBG pO2 VBG Base Excess 08/14/24 08/14/24 08/15/24 02:49 18:04 06:30 ABG pH 7.39 D 7.32 L 7.47 H D ABG pCO2 41 D 53 H D 29 L D ABG pO2 292 H D 204 H D 193 H ABG HCO3 25 27 H 22 ABG O2 Saturation 101 H 100 H 99 H ABG Base Excess 0 0 -1 VBG pH VBG pCO2 VBG pO2 VBG Base Excess 08/16/24 04:14 ABG pH 7.33 L D ABG pCO2 50 H D ABG pO2 149 H D ABG HCO3 26 ABG O2 Saturation 100 H ABG Base Excess 0 VBG pH VBG pCO2 VBG pO2 VBG Base Excess Quality Measures Quality Measures none Assessment & Plan Assessment Current Active Medications: Generic Name Dose Route Start Last Admin Trade Name Freq PRN Reason Stop Dose Admin Acetaminophen 650 mg 08/11/24 08:37 Acetaminophen 325 Mg Tablet PO 09/10/24 05:56 Q6HR PRN FEVER >101 Aspirin 81 mg 08/11/24 09:00 08/16/24 09:20 Aspirin Ec 81 Mg Tabec PO 09/10/24 08:59 81 mg QDAY ASHWIN Administration Rosuvastatin 20 Mg 0 ea 08/09/24 21:00 08/13/24 22:47 PO 09/08/24 20:59 Not Given HS ASHWIN Dextrose 25 ml 08/09/24 15:31 Dextrose 50%-Water Inj 50 Ml Syringe IV 09/08/24 15:30 Q15MIN PRN BG 50-70 responsive npo pt Dextrose 50 ml 08/09/24 15:31 08/12/24 04:24 Dextrose 50%-Water Inj 50 Ml Syringe IV 09/08/24 15:30 50 ml Q15MIN PRN Administration BG <50 OR BG <70 & pt unresponsive Diltiazem HCl 30 mg 08/15/24 22:00 08/16/24 05:37 Diltiazem 30 Mg Tablet PO 09/14/24 21:59 30 mg TID ASHWIN Administration Glucagon 1 mg 08/09/24 15:31 Glucagon Inj 1 Mg Vial IM Q15MIN PRN BG <70, and no IV access Heparin Sodium (Porcine) 3,000 unit 08/12/24 15:11 08/15/24 14:52 Heparin Sod Inj 1000 Unit/Ml Vial 10 Ml INDWELLCAT 08/26/24 15:10 3,000 unit PRN PRN Administration DIALYSIS Heparin Sodium/Dextrose 25,000 unit in 250 mls @ 17.721 mls/hr 08/12/24 14:30 08/16/24 06:44 Heparin In D5w Ivpb IV 08/26/24 14:29 11 units/kg/hr .Q14H7M ASHWIN 17.721 mls/hr Titration Protocol 11 UNITS/KG/HR Albumin Human 25 gm in 100 mls @ 100 mls/min 08/12/24 15:11 08/15/24 14:00 Albuminar-25 Ivpb IV Infused PRN PRN Infusion DIALYSIS Ampicillin Sodium/Sulbactam 100 mls @ 200 mls/hr 08/13/24 12:00 08/16/24 05:36 Sodium 3 gm/ Sodium Chloride IV 08/20/24 11:59 200 mls/hr Q6HR ASHWIN Administration Insulin Glargine 15 unit 08/12/24 09:30 08/16/24 09:31 Insulin Glargine (Lantus) 5 Unit/0.05 Ml (Per 5 Units) SC 09/11/24 09:29 Not Given QDAY ASHWIN Insulin Human Lispro 0 unit 08/13/24 10:41 08/16/24 11:06 Insulin Lispro (Admelog) 1 Unit/0.01 Ml Unit SC 09/11/24 09:59 Not Given Q4HR ASHWIN Protocol Levalbuterol HCl 0.63 mg 08/13/24 19:15 08/16/24 06:18 Levalbuterol Rt 0.63 Mg/3 Ml Nebu INH 09/12/24 19:14 0.63 mg Q6HRRT ASHWIN Administration Midodrine 10 mg 08/14/24 14:00 08/16/24 05:37 Midodrine 5 Mg Tablet PO 09/13/24 13:59 10 mg TID ASHWIN Administration Mirtazapine 45 mg 08/09/24 21:00 08/10/24 21:28 Mirtazapine 15 Mg Tablet PO 09/08/24 20:59 45 mg HS ASHWIN Administration Ondansetron HCl 4 mg 08/09/24 15:20 Ondansetron Inj 2 Mg/Ml Inj 2 Ml IV 09/08/24 15:19 Q6H PRN NAUSEA OR VOMITING Protocol Paroxetine HCl 20 mg 08/14/24 21:00 Paroxetine Hcl 10 Mg Tablet PO 09/13/24 20:59 HS ASHWIN Pharmacy Consult 1 each 08/11/24 20:59 Pharmacy Renal Dose Adjustment 1 Ea XX 09/10/24 20:58 PRN PRN CONSULT Risperidone 3 mg 08/14/24 21:00 Risperidone 1 Mg Tablet PO 09/13/24 20:59 HS ASHWIN Tamsulosin HCl 0.4 mg 08/09/24 16:00 08/15/24 10:14 Tamsulosin Hcl 0.4 Mg Capsule PO 09/08/24 15:59 Not Given QDAY ASHWIN Topiramate 50 mg 08/09/24 21:00 08/13/24 22:46 Topiramate 25 Mg Tablet PO 09/08/24 20:59 Not Given HS ASHWIN Plan Assessment and Plan Summary: Mr. Bella is a 64-year-old male with past medical history of hypertension, hyperlipidemia, coronary artery disease, type diabetes mellitus insulin-dependent, CHF, atrial fibrillation, history of seizures who was admitted to [facility] for management of CHF exacerbation and influenza A. Patient upgraded to ICU after emergent intubation post worsening of mentation and bedside aspiration with inability to protect airway. Neurological #Acute metabolic encephalopathy, resolved Multifactorial: Acute hypoxic/hypercapnic respiratory failure, underlying acidosis, underlying sepsis, polypharmacy Plan: -Will continue to hold psych medications #History of seizures Patient has a past medical history of seizures, last seizure was several years ago and patient cannot recall but has been stable. Home medication topiramate 50 mg HS, will continue to hold. Cardiology # Septic shock secondary to aspiration pneumonia, resolved Treatment: -Continue midodrine 10 TID -Continue Unasyn (08/13- Follow-up: -Monitor for fevers, vitals closely #Congestive heart failure, HFpEF EF 55 to 60% # Mild aortic stenosis, mitral stenosis Follow-up: -Monitor urine output -Scheduled for dialysis today, plan to remove 3 L will follow-up -Will titrate bicarb for CO2 retention during dialysis #Atrial fibrillation with rapid ventricular response Treatment: -Continue Cardizem 30 p.o. 3 times daily -Continue heparin drip -Will consider digoxin for rate control if needed -Discontinued amiodarone due to concern of hepatotoxicity, will monitor heart rate #Demand Ischemia Troponins mildly elevated, troponin peak at 0.517, repeat EKG negative #Hypertension #Hyperlipidemia #History of coronary artery disease Has a past medical history of hyperlipidemia with a previous history of DC approximately 5 years ago. Patient takes rosuvastatin 20 mg at bedtime, holding rosuvastatin due to hepatitis Patient has a past medical history of hypertension on losartan Pulmonary #Acute hypoxic/hypercapnic respiratory failure secondary to #Influenza A #Aspiration pneumonia, ARDS #COPD # Suspicion of obesity hypoventilation syndrome Patient was given Zosyn(08/10-08/13) , azithromycin, (08/10-08/12) linezolid (08/11-08/13) vancomycin (08/10-08/11), Tamiflu (08/09-08/14) Treatment: -DuoNeb every 6 hours -Continue midodrine 10 TID -Continue Unasyn (08/13- -BiPAP every night as needed -Patient is a chronic CO2 retainer, correct bicarb as needed Gastrointestinal # Hepatitis 2/2 shock liver versus drug toxicity versus fluid overload Treatment: Will continue to maintain mean arterial pressure >65 Discontinued amiodarone, topiramate Continue to hold psychiatry medication Follow-up: Follow LFTs in AM Renal/Genitourinary # Acute renal failure secondary to ischemic ATN # Fluid overload Treatment: -Continue inpatient dialysis -Will monitor renal function -Consulted pharmacy to dose medications renally -Avoid nephrotoxic agents -Follow renal panel in a.m. -Consider IV bicarb push as needed Endocrine #Type 2 diabetes mellitus, insulin-dependent # Hyperglycemia Patient has a past medical history of diabetes mellitus type 2 Home medication include Lantus 12 units, Januvia (Sitagliptin), Jardiance (Empagliflozin), and Ozempic. Diagnostic workup: Hemoglobin A1c 7.1 Treatment: -Started on Lantus 15 units daily, sliding scale lispro -Monitor fingerstick blood glucose every 6 hours -Goal fingerstick BG 140-180 Hematology #Leukocytosis Possibly due to underlying sepsis Infectious Disease #Influenza A #Pneumonia -See respiratory system for details Integumentary #Bilateral venous stasis Differential diagnosis: Chronic venous insufficiency Treatment: Wound care as needed DVT prophylaxis: Heparin drip GI prophylaxis: Protonix IV Diet: N.p.o., pending swallow screen Lines: Peripheral IV, right IJ central line, left femoral Vas-Cath Code status: Full code Catheter: Branham catheter, discontinued (08/10-08/13) Case discussed with Attending Dr. Trevino and Dr. Dotson PGY3. Ju Saez PGY1 Disclaimer: This note was dictated by speech recognition. Minor errors in blade groover may be present due to voice recognition software.
[2024-08-16] MEDS: BUMETANIDE INJ 0.25 MG/ML VIAL 4 ML 1 MG IVP (11:46)
--- NOTE | 2024-08-16 16:12 | PD.RESEVENT ---
Documentation for date of: 08/16/24 Event Note Event Note: Event note?downgrade from ICU to floor team 64-year-old male with a past medical history of hypertension, hyperlipidemia, CAD, diabetes mellitus type 2 insulin-dependent, CHF HFpEF 55-60%, with Atrial Fibrillation, and mild AV stenosis who was initially admitted on 08/09/2024 for acute CHF exacerbation in the setting of flu. Patient was upgraded to ICU as patient was unable to product air way in the setting of shock with ARDS requiring intubation and pressors. In the ICU patient was intubated secondary to septic shock from aspiration pneumonia with ARDS pattern noted on imaging requiring multiple pressors. Patient eventually extubated on 08/13/2024 but concern for absentee seizures requiring reintubation and finally extubated on 08/16/2024. Patient is a CO2 to retainer given history of COPD and MARK. BiPAP ordered for night. Patient would benefit from sleep study. Given concern for altered mental status and possible absentee seizures all psych medications are currently on hold, consider restarting. Patient currently has a femoral line and is receiving daily dialysis, Dr. Bermeo following patient will need to confirm dialysis plan. Patient has history of atrial fibrillation with RVR currently on Cardizem 30 3 times daily, currently rate controlled and heparin drip. For patient's aspiration pneumonia currently on Unasyn and completed Tamiflu course. Patient had elevated transaminitis currently improving likely secondary to shock leading to depression creased perfusion to liver. Patient passed swallow screen. Floors team to resume care on 08/17/2024. - The patient's plan was discussed with attending Dr. Kidd and senior residents Dr. Brooke Yates MD PGY1 Internal Medicine
[2024-08-16] MEDS: Heparin/D5w 25K 250 ML Ivpb 25,000 UNIT/250 ML BAG 17.721 UNIT IV (17:28)
[2024-08-16] MEDS: INSULIN LISPRO (AdmeLOG) 1 UNIT/0.01 ML UNIT SC ×2 (18:27→20:44)
[2024-08-16] MEDS: HEPARIN SOD INJ 1000 UNIT/ML VIAL 10 ML 3000 UNIT INDWELLCAT (18:32)
[2024-08-16 21:20] LABS: Partial Thromboplastin Time 54.3 Seconds (22.0-36.0)
[2024-08-17] VITALS (33 sets, daily range): BP systolic 110–164; BP diastolic 62–94; PULSE 81–112; RESP 12–25; TEMP 36.1–36.4; O2SAT 95–99; BMI 44.9; BMI 12.0
[2024-08-17] MEDS: LEVALBUTEROL RT 0.63 MG/3 ML NEBU INH ×4 (00:24→18:39)
[2024-08-17] MEDS: MIDODRINE 5 MG TABLET 10 MG PO (05:05)
[2024-08-17] MEDS: AMPICILLIN/SULBAC INJ 3 GM in SODIUM CHLORIDE 0.9% 100 ML IV ×3 (05:06→20:50)
[2024-08-17] MEDS: DILTIAZEM 30 MG TABLET PO ×2 (05:06→21:53)
[2024-08-17 06:11] LABS: Basophils % (Auto) 0 % (0-2.5); Eosinophils # (Auto) 0.2 Thou/mm3 (0.0-0.5); Eosinophils % (Auto) 2 % (0-10); Hematocrit 31.4 % (41.0-53.0); Hemoglobin 10.2 g/dL (13.5-16.0); Immature Granulocytes % (Auto) 5 % (0-0); Immature Granulocytes Auto 0.51 Thou/mm3 (0.00-0.00); Lymphocytes # (Auto) 1.3 Thou/mm3 (1.0-4.8); Lymphocytes % (Auto) 13 % (10-50); Mean Corpuscular HGB Conc 32.5 g/dl (31.0-37.0); Mean Corpuscular Hemoglobin 27.1 pg (25.0-35.0); Mean Corpuscular Volume 83 fL (80-100); Monocytes # (Auto) 1.2 Thou/mm3 (0.0-0.8); Monocytes % (Auto) 12 % (0-12); Neutrophils # (Auto) 6.5 Thou/mm3 (1.8-7.7); Neutrophils % (Auto) 67 % (37-80); Nucleated Red Blood Cell % 0 /100 WBC (0); Platelet Count 204 Thou/mm3 (140-440); RDW Standard Deviation 46.8 fL (35.1-43.9); Red Blood Count 3.77 Miln/mm3 (4.50-5.90); White Blood Count 9.7 Thou/mm3 (3.8-10.6)
[2024-08-17 06:27] LABS: INR 1.1 (0.9-1.3); Partial Thromboplastin Time 49.8 Seconds (22.0-36.0); Prothrombin Time 11.9 Seconds (9.0-12.2)
[2024-08-17 06:57] LABS: Alanine Aminotransferase 305 U/L (10-49); Albumin, Serum 3.5 gm/dL (3.4-4.8); Albumin/Globulin Ratio 1.2 (1.2-2.2); Alkaline Phosphatase 40 U/L (46-116); Anion Gap 14 (7-16); Aspartate Amino Transferase 56 U/L (0-34); BUN/Creatinine Ratio 12 Ratio (12-20); Blood Urea Nitrogen 65 mg/dL (9-23); Calcium 8.5 mg/dL (8.3-10.6); Calcium (Corrected) 8.9 mg/dL (8.5-10.1); Carbon Dioxide 27.2 mMol/L (20.0-31.0); Chloride 94 mMol/L (98-107); Creatinine (Component) 5.6 mg/dL (0.6-1.3); Estimated Creatinine Clearance 21.3 mL/min (>60); Globulin 2.9 gm/dL (2.3-3.5); Glucose 208 mg/dL (74-106); Magnesium 2.4 mg/dL (1.6-2.6); Osmolality,Calculated 294 (275-295); Phosphorous 6.1 mg/dL (2.4-5.1); Potassium 3.6 mMol/L (3.4-5.1); Sodium 135 mMol/L (136-145); Total Protein 6.4 gm/dL (5.7-8.2); eGFR 11 See Note
[2024-08-17] MEDS: INSULIN LISPRO (AdmeLOG) 1 UNIT/0.01 ML UNIT SC ×3 (07:46→21:23)
[2024-08-17] MEDS: Heparin/D5w 25K 250 ML Ivpb 25,000 UNIT/250 ML BAG 20.943 UNIT IV (08:30)
[2024-08-17] MEDS: INSULIN GLARGINE (Lantus) 5 UNIT/0.05 ML (PER 5 UNITS) 15 UNIT SC (08:32)
[2024-08-17] MEDS: TAMSULOSIN HCL 0.4 MG CAPSULE PO (08:32)
[2024-08-17] MEDS: SEVELAMER CARBONATE 800 MG TABLET PO ×2 (08:32→18:00)
[2024-08-17] MEDS: ASPIRIN EC 81 MG TABEC PO (08:32)
[2024-08-17] MEDS: HEPARIN SOD INJ 5000 UNIT/ML VIAL 4000 UNIT IVP (09:15)
--- NOTE | 2024-08-17 09:19 | ESPR_ITS ---
Documentation for date of: 08/17/24 Subjective Subjective Interval history: Andrew Bella is a 64-year-old male with a past medical history of hypertension, hyperlipidemia, CAD, insulin-dependent type 2 diabetes mellitus, CHF, A-fib, depression, and history of seizures who recently moved from [place] and initially presented to ED on 08/09 with dyspnea and productive cough with associated pleuritic chest pain, cough, wheezing, and weakness. Also noted to have bilateral lower extremity edema and orthopnea, but denied paroxysmal nocturnal dyspnea. In ED, vitals significant for temperature of 100.8 ?F and on room air. Labs showed BUN 29, 1.6, GFR 48, glucose 228, LDH 256, BNP 275, UA 4+ glucose, U tox negative. Influenza A positive. Patient subsequently started on Tamiflu as well as Lasix for possible CHF exacerbation. Throughout hospital course, on 08/10 patient has had 2 rapid responses very well for desaturation requiring BiPAP and IV steroids/antibiotics and the second for hypoxia with altered mentation, requiring intubation for airway protection prompting transfer to ICU for further care. Around time of intubation, ABG showed pH 6.97, pCO2 97. MAP noted to drop below 65 and was started on Levophed and vasopressin. Cardiology consulted for further evaluation of possible CHF exacerbation and A-fib. Although unable to determine baseline renal function, creatinine increased from 1.8 to 2.9 overnight and so nephrology was consulted. Given that patient is intubated, history obtained from chart review. 08/11: Patient seen and examined in ICU, intubated and undergoing cooling measures for fever of 103.1 ?F. Creatinine noted to jump from 1.8 to 2.9 overnight. Suspect acute tubular necrosis in setting of hypotension with MAP less than 65 mmHg noted on 08/10. Also associated increase in lactic acid from 2.2 to 4.6 as well as overnight increase in LFTs (AST 17 to 553 and AST from 10 to 54). Will follow-up on urine studies as well as renal ultrasound. 08/12: Patient seen and examined in ICU, intubated and ventilated. Labs and orders reviewed. Na 129, BUN 67, Cr steadily increasing to 4.0, Ca 8.2. LFTs remain elevated (AST 423, ALT 364). Produced less than 20 cc of urine overnight. Still pending urine studies. Vancomycin changed to linezolid, continuing azithromycin and Zosyn. CTA chest: Bilateral pneumonia with arts pattern. Repeat CXR showed worsening of pneumonia and ARDS. DC'd IV steroids and amlodipine. Vas-Cath placed for hemodialysis. 08/13: Patient seen and examined in ICU, inbutaed and ventilated. Labs and orderse reviewed. Na stable at 129, BUN 66 and Cr again increased from 4.0 to 4.2. LFTs continue to uptrend (AST 688, ALT 597). Patient was given bumex x1 yesterday but had minimal urine output and so he underwent a session of dialysis for two hours with plans for hemodialysis again today. 08/14: Currently seen in ICU. Remains on ventilator and pressors. Blood pressure 123/76, heart rate 105. WBC 11.3, hemoglobin 10, platelets 158. Sodium 131, potassium 4, BUN 58, creatinine 4, total bilirubin 1.4, AST 778, ALT 752, alk phos 42, total protein 5.8, ammonia level 18, albumin 3.3. Abdominal x-ray showed no air in distended stomach. Chest x-ray showed extensive bilateral pneumonia with fluid overload. 08/15: Currently seen in ICU. Remains on ventilator. Blood sugar 123. Blood pressure 107/67, heart rate 110 to 130. WBC 11.9, hemoglobin 10, platelets 171. ABG showing pH 7.47, pCO2 29, pO2 193, bicarbonate 22.Sodium 133, potassium 3.8, bicarbonate 23.4, BUN 52, creatinine 4.3, calcium 9, phosphorus 3.8, AST 455, ALT 669, total bilirubin 1.3, albumin 3.1 Chest x-ray showed extensive bilateral pneumonia with fluid overload. Will receive extra session of dialysis today. Goal will be to increase bicarbonate for compensation for respiratory acidosis. 08/16: Seen and examined in ICU. Per ICU team, possible trial for extubation today and will plan for hemodialysis afterwards. Vitals stable, currently on mechanical ventilation, no longer on pressors other than midodrine. WBC downtrending from 12 to 10.8, hemoglobin stable at 10. ABG showing pH 7.33, pCO2 50, pO2 149. Na 135, K 3.9, BUN 51, Cr increased from 3.7 to 4.5, phosphorus increased from 3.8 to 6.3. LFTs improving, AST 142 and ALT 446. 08/17: Seen and examined while undergoing dialysis and tolerating well. Successfully extubated and downgraded to floors yesterday. Denies shortness of breath, chest pain, fever, chills, muscle aches/pains. WBC downtrending, hemoglobin stable, and LFTs also downtrending. However, renal function remains decreased despite daily dialysis with creatinine increasing from 4.5 to 5.6, BUN increasing from 51 to 65, phosphorus from 6.3 to 6.1. Exam Vital Signs Temp Pulse Resp BP Pulse Ox O2 Del Method O2 Flow Rate 96.9 F 83 19 146/74 H 97 BiPAP 3 08/17/24 09:10 08/17/24 09:10 08/17/24 09:10 08/17/24 09:10 08/17/24 09:10 08/17/24 04:30 08/17/24 09:10 FiO2 30 08/17/24 09:10 Narrative Exam General: extubated, breathing comfortably on NC, AOx3, no acute distress, able to speak full sentences HEENT: NC/AT, mucous membranes moist, bilateral sclera anicteric Cardiovascular: systolic murmur appreciated, S1/S2 present Pulmonary: coarse lung sounds appreciated bilaterally Abdominal: obese, bowel sounds present, non-tender Musculoskeletal: 2+ bilateral lower extremity edema Skin: purple discoloration in bilateral lower extremities, intact Objective Labs 08/18/24 05:31 08/18/24 05:31 Labs: Laboratory Results - last 24 hr 08/16/24 08/16/24 08/17/24 13:09 20:20 05:47 WBC 9.7 RBC 3.77 L Hgb 10.2 L Hct 31.4 L MCV 83 MCH 27.1 MCHC 32.5 RDW Std Deviation 46.8 H Plt Count 204 Neut % (Auto) 67 Lymph % (Auto) 13 [place] % (Auto) 12 Eos % (Auto) 2 Baso % (Auto) 0 Neut # (Auto) 6.5 Lymph # (Auto) 1.3 [place] # (Auto) 1.2 H Eos # (Auto) 0.2 Baso # (Auto) 0.0 Immature Gran # (Auto) 0.51 H Absolute Nucleated RBC 0.00 Immature Gran % 5 H Nucleated RBC % 0 PT 11.9 INR 1.1 APTT 61.0 H D 54.3 H 49.8 H Sodium 135 L Potassium 3.6 Chloride 94 L Carbon Dioxide 27.2 Anion Gap 14 BUN 65 H Creatinine 5.6 H* D Estim Creat Clear Calc 21.3 L eGFR 11 L* BUN/Creatinine Ratio 12 Glucose 208 H Calculated Osmolality 294 Calcium 8.5 Corrected Calcium 8.9 Phosphorus 6.1 H Magnesium 2.4 Total Bilirubin 1.0 AST 56 H ALT 305 H Alkaline Phosphatase 40 L Total Protein 6.4 Albumin 3.5 Globulin 2.9 Albumin/Globulin Ratio 1.2 ABG Interpretation ABG results: 08/10/24 08/10/24 08/10/24 11:34 13:55 16:46 ABG pH 7.21 L 6.97 L* D 6.99 L* ABG pCO2 49 H 95 H* D 78 H* D ABG pO2 60 L 64 L 41 L* D ABG HCO3 20 22 19 L ABG O2 Saturation 86 L 80 L 58 L ABG Base Excess -8 L -12 L -14 L VBG pH VBG pCO2 VBG pO2 VBG Base Excess 08/10/24 08/10/24 08/10/24 19:28 20:48 21:13 ABG pH 7.01 L* Cancelled 7.08 L* ABG pCO2 75 H* Cancelled 69 H ABG pO2 47 L* Cancelled 61 L ABG HCO3 19 L Cancelled 20 ABG O2 Saturation 72 L Cancelled 87 L ABG Base Excess -13 L Cancelled -11 L VBG pH VBG pCO2 VBG pO2 VBG Base Excess 08/11/24 08/11/24 08/11/24 00:34 04:08 14:56 ABG pH 7.14 L* 7.16 L* 7.17 L* ABG pCO2 60 H 54 H 50 H ABG pO2 83 D 114 H D 72 L D ABG HCO3 20 19 L 18 L ABG O2 Saturation 96 99 H 93 ABG Base Excess -10 L -10 L -10 L VBG pH VBG pCO2 VBG pO2 VBG Base Excess 08/11/24 08/11/24 08/12/24 20:05 23:14 02:06 ABG pH 7.20 L 7.25 L 7.27 L ABG pCO2 55 H 49 H 50 H ABG pO2 82 L 93 90 ABG HCO3 21 22 23 ABG O2 Saturation 96 98 98 ABG Base Excess -7 L -6 L -4 L VBG pH VBG pCO2 VBG pO2 VBG Base Excess 08/12/24 08/12/24 08/12/24 06:30 10:13 10:45 ABG pH 7.34 L 7.31 L ABG pCO2 41 42 ABG pO2 177 H D 134 H D ABG HCO3 22 21 ABG O2 Saturation 100 H 100 H ABG Base Excess -4 L -5 L VBG pH 7.30 L VBG pCO2 43 VBG pO2 53 VBG Base Excess -5 L 08/12/24 08/12/24 08/13/24 14:10 19:57 04:27 ABG pH 7.33 L 7.35 7.35 ABG pCO2 40 41 40 ABG pO2 114 H D 103 95 ABG HCO3 21 23 22 ABG O2 Saturation 99 H 99 H 98 ABG Base Excess -5 L -3 -4 L VBG pH VBG pCO2 VBG pO2 VBG Base Excess 08/13/24 08/13/24 08/13/24 20:14 21:45 23:54 ABG pH 7.26 L 7.26 L 7.26 L ABG pCO2 61 H D 60 H 59 H ABG pO2 84 201 H D 151 H D ABG HCO3 27 H 27 H 27 H ABG O2 Saturation 96 100 H 100 H ABG Base Excess -1 -1 -1 VBG pH VBG pCO2 VBG pO2 VBG Base Excess 08/14/24 08/14/24 08/15/24 02:49 18:04 06:30 ABG pH 7.39 D 7.32 L 7.47 H D ABG pCO2 41 D 53 H D 29 L D ABG pO2 292 H D 204 H D 193 H ABG HCO3 25 27 H 22 ABG O2 Saturation 101 H 100 H 99 H ABG Base Excess 0 0 -1 VBG pH VBG pCO2 VBG pO2 VBG Base Excess 08/16/24 04:14 ABG pH 7.33 L D ABG pCO2 50 H D ABG pO2 149 H D ABG HCO3 26 ABG O2 Saturation 100 H ABG Base Excess 0 VBG pH VBG pCO2 VBG pO2 VBG Base Excess Quality Measures Quality Measures none Assessment & Plan Assessment Current Active Medications: Generic Name Dose Route Start Last Admin Trade Name Freq PRN Reason Stop Dose Admin Acetaminophen 650 mg 08/11/24 08:37 Acetaminophen 325 Mg Tablet PO 09/10/24 05:56 Q6HR PRN FEVER >101 Aspirin 81 mg 08/11/24 09:00 08/17/24 08:32 Aspirin Ec 81 Mg Tabec PO 09/10/24 08:59 81 mg QDAY ASHWIN Administration Rosuvastatin 20 Mg 0 ea 08/09/24 21:00 08/13/24 22:47 PO 09/08/24 20:59 Not Given HS ASHWIN Dextrose 25 ml 08/09/24 15:31 Dextrose 50%-Water Inj 50 Ml Syringe IV 09/08/24 15:30 Q15MIN PRN BG 50-70 responsive npo pt Dextrose 50 ml 08/09/24 15:31 08/12/24 04:24 Dextrose 50%-Water Inj 50 Ml Syringe IV 09/08/24 15:30 50 ml Q15MIN PRN Administration BG <50 OR BG <70 & pt unresponsive Diltiazem HCl 30 mg 08/15/24 22:00 08/17/24 05:06 Diltiazem 30 Mg Tablet PO 09/14/24 21:59 30 mg TID ASHWIN Administration Glucagon 1 mg 08/09/24 15:31 Glucagon Inj 1 Mg Vial IM Q15MIN PRN BG <70, and no IV access Heparin Sodium (Porcine) 3,000 unit 08/12/24 15:11 08/16/24 18:32 Heparin Sod Inj 1000 Unit/Ml Vial 10 Ml INDWELLCAT 08/26/24 15:10 3,000 unit PRN PRN Administration DIALYSIS Heparin Sodium/Dextrose 25,000 unit in 250 mls @ 17.721 mls/hr 08/12/24 14:30 08/16/24 21:32 Heparin In D5w Ivpb IV 08/26/24 14:29 11 units/kg/hr .Q14H7M [facility] 17.721 mls/hr Titration Protocol 11 UNITS/KG/HR Albumin Human 25 gm in 100 mls @ 100 mls/min 08/12/24 15:11 08/15/24 14:00 Albuminar-25 Ivpb IV Infused PRN PRN Infusion DIALYSIS Ampicillin Sodium/Sulbactam 100 mls @ 200 mls/hr 08/13/24 12:00 08/17/24 05:06 Sodium 3 gm/ Sodium Chloride IV 08/20/24 11:59 200 mls/hr Q6HR ASHWIN Administration Insulin Glargine 15 unit 08/12/24 09:30 08/17/24 08:32 Insulin Glargine (Lantus) 5 Unit/0.05 Ml (Per 5 Units) SC 09/11/24 09:29 15 unit QDAY ASHWIN Administration Insulin Human Lispro 0 unit 08/16/24 18:00 08/17/24 07:46 Insulin Lispro (Admelog) 1 Unit/0.01 Ml Unit SC 09/15/24 17:59 8 unit ACHS ASHWIN Administration Protocol Levalbuterol HCl 0.63 mg 08/13/24 19:15 08/17/24 06:48 Levalbuterol Rt 0.63 Mg/3 Ml Nebu INH 09/12/24 19:14 0.63 mg Q6HRRT ASHWIN Administration Midodrine 10 mg 08/14/24 14:00 08/17/24 05:05 Midodrine 5 Mg Tablet PO 09/13/24 13:59 10 mg TID ASHWIN Administration Mirtazapine 45 mg 08/09/24 21:00 08/10/24 21:28 Mirtazapine 15 Mg Tablet PO 09/08/24 20:59 45 mg HS ASHWIN Administration Ondansetron HCl 4 mg 08/09/24 15:20 Ondansetron Inj 2 Mg/Ml Inj 2 Ml IV 09/08/24 15:19 Q6H PRN NAUSEA OR VOMITING Protocol Paroxetine HCl 20 mg 08/14/24 21:00 Paroxetine Hcl 10 Mg Tablet PO 09/13/24 20:59 HS ASHWIN Pharmacy Consult 1 each 08/11/24 20:59 Pharmacy Renal Dose Adjustment 1 Ea XX 09/10/24 20:58 PRN PRN CONSULT Risperidone 3 mg 08/14/24 21:00 Risperidone 1 Mg Tablet PO 09/13/24 20:59 HS ASHWIN Sevelamer Carbonate 800 mg 08/17/24 08:00 08/17/24 08:32 Sevelamer Carbonate 800 Mg Tablet PO 09/16/24 07:59 800 mg TIDWM ASHWIN Administration Tamsulosin HCl 0.4 mg 08/09/24 16:00 08/17/24 08:32 Tamsulosin Hcl 0.4 Mg Capsule PO 09/08/24 15:59 0.4 mg QDAY ASHWIN Administration Topiramate 50 mg 08/09/24 21:00 08/13/24 22:46 Topiramate 25 Mg Tablet PO 09/08/24 20:59 Not Given HS ASHWIN Plan Andrew Bella is a 64-year-old male with a past medical history of hypertension, hyperlipidemia, CAD, insulin-dependent type 2 diabetes mellitus, CHF, A-fib, depression, and history of seizures who initially presented to ED on 08/09 with dyspnea and productive cough with associated pleuritic chest pain, admitted for management of influenza PNA vs CHF exacerbation. Upgraded on 08/10 for airway protection requiring intubation and extubated and downgraded on 08/16. Nephrology consulted in setting of acute kidney injury and acute tubular necrosis. #Acute kidney injury #Acute tubular necrosis Renal US showed mild bilateral renal parenchymal scar formation without hydronephrosis. Critical care time spent more than 35 minutes regarding plan of care and disease management. Plan of care discussed with the dialysis nurse. Please see dialysis flowsheet for further details. ? Dialysis today ? Avoid nephrotoxic agents ? Renally dose medications #Hyperphosphatemia ? Sevelamer 800 mg PO TID #Acute metabolic encephalopathy, resolved #History of seizures #Shock, resolved #HFpEF (EF 55 to 60%) #Atrial fibrillation #Transaminitis, improving #Hypertension #Hyperlipidemia #CAD #Acute hypoxic/hypercapnic respiratory failure, secondary to #Influenza A pneumonia #COPD #Type 2 diabetes mellitus, insulin-dependent ? Continue management per ICU team ----- Plan discussed with attending physician Dr. Jean-Claude Khan MD PGY-1 Internal Medicine Attending Provider Attestation/Addendum Patient seen and examined with resident physician Dr. Angel. Note reviewed, agree with findings and recommendations. Patient remains in telemetry. Extubated and moved out of ICU. Patient currently seen on dialysis. Tolerating dialysis without any problems. Still with significant edema. Needs a permacath and outpatient dialysis arrangements. Hemodialysis for 3 hours, 2K, ultrafiltration 2-3 L, Epogen 6000, no heparin ordered. Plan of care discussed with the dialysis nurse. Please see dialysis flowsheet for further details.
--- NOTE | 2024-08-17 09:37 | PCS.ST ---
Swallow Evaluation completed. Mild globus sensation with textures. Continue current diet with precautions.
--- NOTE | 2024-08-17 09:41 | ESPR_ITS ---
Documentation for date of: 08/17/24 Subjective Subjective Interval history: 08/16/2024: Pt examined at bedside, telemetry reviewed rate controlled but still in afib. Pt is currently undergoing SBT, with plans to extubate today. BUN 51, Cr, 4.5, Mg 2.5 and potassium 3.9, WBC of 10.8, patient had dialysis yesterday with 1.9 L removed. Patient is off pressors, currently rate controlled with Cardizem 30 mg 3 times daily along with midodrine 10 mg tid. Please restart amiodarone drip and oral amio 200 mg bid if HR is high and BP low, however AST in the 140s, ALT in the 400sa and downtrending. No other complaints at this time. Severely voulme overloaded and continue dialysis with goal of atelast 3L /day if BP permits and additional sessions if pt can tolerate. 08/17/2024: Patient examined at bedside today during dialysis. Telemetry reviewed, patient seems to be rate controlled in the 100s, still in A-fib. Patient reports he is doing well, he does not remember what was happening in the ICU. He does not report any shortness of breath or chest pain at this time. He says that he uses CPAP last night. It was discussed with him for the need dialysis at this time. His potassium magnesium today were 3.6 and magnesium 2 respectively. His ALT and AST are 56 and 305 respectively, coming down. His hemoglobin was 10.2 and his white count was 9.7, BUN/creatinine of 65 and 4.6. Patient will need to continue dialysis at this time and need to remove at least 3 L a day if blood pressure admits and if patient needs additional sessions. No other complaints at this time Exam Vital Signs Temp Pulse Resp BP Pulse Ox O2 Del Method O2 Flow Rate 96.9 F 83 19 146/74 H 97 BiPAP 3 08/17/24 09:10 08/17/24 09:10 08/17/24 09:10 08/17/24 09:10 08/17/24 09:10 08/17/24 04:30 08/17/24 09:10 FiO2 30 08/17/24 09:10 Narrative Exam General: AAOx3 morbidly obese man, bearded male HEENT: Moist mucous membranes, conjunctiva clear, EOMI,skin tags present Cardiovascular: Pansystolic murmur ausculated upon mitral valve and R sternal border, no carotid bruit appreciated, radial pulses +2 bilat, irregularly irregular, R IJ Pulmonary: Some crackles heard in lung sounds GI: No ascites noted, bowel sounds present, however, abd obesity : No scrotal swelling Extremities: venous stasis noted, unkempt feet, +3 pitting edema bilat, no Neuro: AAOx3, no focal motor or sensory deficits Objective Labs 08/17/24 05:47 08/17/24 05:47 Labs: Laboratory Results - last 24 hr 08/16/24 08/16/24 08/17/24 13:09 20:20 05:47 WBC 9.7 RBC 3.77 L Hgb 10.2 L Hct 31.4 L MCV 83 MCH 27.1 MCHC 32.5 RDW Std Deviation 46.8 H Plt Count 204 Neut % (Auto) 67 Lymph % (Auto) 13 [place] % (Auto) 12 Eos % (Auto) 2 Baso % (Auto) 0 Neut # (Auto) 6.5 Lymph # (Auto) 1.3 [place] # (Auto) 1.2 H Eos # (Auto) 0.2 Baso # (Auto) 0.0 Immature Gran # (Auto) 0.51 H Absolute Nucleated RBC 0.00 Immature Gran % 5 H Nucleated RBC % 0 PT 11.9 INR 1.1 APTT 61.0 H D 54.3 H 49.8 H Sodium 135 L Potassium 3.6 Chloride 94 L Carbon Dioxide 27.2 Anion Gap 14 BUN 65 H Creatinine 5.6 H* D Estim Creat Clear Calc 21.3 L eGFR 11 L* BUN/Creatinine Ratio 12 Glucose 208 H Calculated Osmolality 294 Calcium 8.5 Corrected Calcium 8.9 Phosphorus 6.1 H Magnesium 2.4 Total Bilirubin 1.0 AST 56 H ALT 305 H Alkaline Phosphatase 40 L Total Protein 6.4 Albumin 3.5 Globulin 2.9 Albumin/Globulin Ratio 1.2 ABG Interpretation ABG results: 08/10/24 08/10/24 08/10/24 11:34 13:55 16:46 ABG pH 7.21 L 6.97 L* D 6.99 L* ABG pCO2 49 H 95 H* D 78 H* D ABG pO2 60 L 64 L 41 L* D ABG HCO3 20 22 19 L ABG O2 Saturation 86 L 80 L 58 L ABG Base Excess -8 L -12 L -14 L VBG pH VBG pCO2 VBG pO2 VBG Base Excess 08/10/24 08/10/24 08/10/24 19:28 20:48 21:13 ABG pH 7.01 L* Cancelled 7.08 L* ABG pCO2 75 H* Cancelled 69 H ABG pO2 47 L* Cancelled 61 L ABG HCO3 19 L Cancelled 20 ABG O2 Saturation 72 L Cancelled 87 L ABG Base Excess -13 L Cancelled -11 L VBG pH VBG pCO2 VBG pO2 VBG Base Excess 08/11/24 08/11/24 08/11/24 00:34 04:08 14:56 ABG pH 7.14 L* 7.16 L* 7.17 L* ABG pCO2 60 H 54 H 50 H ABG pO2 83 D 114 H D 72 L D ABG HCO3 20 19 L 18 L ABG O2 Saturation 96 99 H 93 ABG Base Excess -10 L -10 L -10 L VBG pH VBG pCO2 VBG pO2 VBG Base Excess 08/11/24 08/11/24 08/12/24 20:05 23:14 02:06 ABG pH 7.20 L 7.25 L 7.27 L ABG pCO2 55 H 49 H 50 H ABG pO2 82 L 93 90 ABG HCO3 21 22 23 ABG O2 Saturation 96 98 98 ABG Base Excess -7 L -6 L -4 L VBG pH VBG pCO2 VBG pO2 VBG Base Excess 08/12/24 08/12/24 08/12/24 06:30 10:13 10:45 ABG pH 7.34 L 7.31 L ABG pCO2 41 42 ABG pO2 177 H D 134 H D ABG HCO3 22 21 ABG O2 Saturation 100 H 100 H ABG Base Excess -4 L -5 L VBG pH 7.30 L VBG pCO2 43 VBG pO2 53 VBG Base Excess -5 L 08/12/24 08/12/24 08/13/24 14:10 19:57 04:27 ABG pH 7.33 L 7.35 7.35 ABG pCO2 40 41 40 ABG pO2 114 H D 103 95 ABG HCO3 21 23 22 ABG O2 Saturation 99 H 99 H 98 ABG Base Excess -5 L -3 -4 L VBG pH VBG pCO2 VBG pO2 VBG Base Excess 08/13/24 08/13/24 08/13/24 20:14 21:45 23:54 ABG pH 7.26 L 7.26 L 7.26 L ABG pCO2 61 H D 60 H 59 H ABG pO2 84 201 H D 151 H D ABG HCO3 27 H 27 H 27 H ABG O2 Saturation 96 100 H 100 H ABG Base Excess -1 -1 -1 VBG pH VBG pCO2 VBG pO2 VBG Base Excess 08/14/24 08/14/24 08/15/24 02:49 18:04 06:30 ABG pH 7.39 D 7.32 L 7.47 H D ABG pCO2 41 D 53 H D 29 L D ABG pO2 292 H D 204 H D 193 H ABG HCO3 25 27 H 22 ABG O2 Saturation 101 H 100 H 99 H ABG Base Excess 0 0 -1 VBG pH VBG pCO2 VBG pO2 VBG Base Excess 08/16/24 04:14 ABG pH 7.33 L D ABG pCO2 50 H D ABG pO2 149 H D ABG HCO3 26 ABG O2 Saturation 100 H ABG Base Excess 0 VBG pH VBG pCO2 VBG pO2 VBG Base Excess Quality Measures Quality Measures none Assessment & Plan Assessment Current Active Medications: Generic Name Dose Route Start Last Admin Trade Name Freq PRN Reason Stop Dose Admin Acetaminophen 650 mg 08/11/24 08:37 Acetaminophen 325 Mg Tablet PO 09/10/24 05:56 Q6HR PRN FEVER >101 Aspirin 81 mg 08/11/24 09:00 08/17/24 08:32 Aspirin Ec 81 Mg Tabec PO 09/10/24 08:59 81 mg QDAY ASHWIN Administration Rosuvastatin 20 Mg 0 ea 08/09/24 21:00 08/13/24 22:47 PO 09/08/24 20:59 Not Given HS ASHWIN Dextrose 25 ml 08/09/24 15:31 Dextrose 50%-Water Inj 50 Ml Syringe IV 09/08/24 15:30 Q15MIN PRN BG 50-70 responsive npo pt Dextrose 50 ml 08/09/24 15:31 08/12/24 04:24 Dextrose 50%-Water Inj 50 Ml Syringe IV 09/08/24 15:30 50 ml Q15MIN PRN Administration BG <50 OR BG <70 & pt unresponsive Diltiazem HCl 30 mg 08/15/24 22:00 08/17/24 05:06 Diltiazem 30 Mg Tablet PO 09/14/24 21:59 30 mg TID ASHWIN Administration Glucagon 1 mg 08/09/24 15:31 Glucagon Inj 1 Mg Vial IM Q15MIN PRN BG <70, and no IV access Heparin Sodium (Porcine) 3,000 unit 08/12/24 15:11 08/16/24 18:32 Heparin Sod Inj 1000 Unit/Ml Vial 10 Ml INDWELLCAT 08/26/24 15:10 3,000 unit PRN PRN Administration DIALYSIS Heparin Sodium/Dextrose 25,000 unit in 250 mls @ 17.721 mls/hr 08/12/24 14:30 08/16/24 21:32 Heparin In D5w Ivpb IV 08/26/24 14:29 11 units/kg/hr .Q14H7M ASHWIN 17.721 mls/hr Titration Protocol 11 UNITS/KG/HR Albumin Human 25 gm in 100 mls @ 100 mls/min 08/12/24 15:11 08/15/24 14:00 Albuminar-25 Ivpb IV Infused PRN PRN Infusion DIALYSIS Ampicillin Sodium/Sulbactam 100 mls @ 200 mls/hr 08/13/24 12:00 08/17/24 05:06 Sodium 3 gm/ Sodium Chloride IV 08/20/24 11:59 200 mls/hr Q6HR ASHWIN Administration Insulin Glargine 15 unit 08/12/24 09:30 08/17/24 08:32 Insulin Glargine (Lantus) 5 Unit/0.05 Ml (Per 5 Units) SC 09/11/24 09:29 15 unit QDAY ASHWIN Administration Insulin Human Lispro 0 unit 08/16/24 18:00 08/17/24 07:46 Insulin Lispro (Admelog) 1 Unit/0.01 Ml Unit SC 09/15/24 17:59 8 unit ACHS ASHWIN Administration Protocol Levalbuterol HCl 0.63 mg 08/13/24 19:15 08/17/24 06:48 Levalbuterol Rt 0.63 Mg/3 Ml Nebu INH 09/12/24 19:14 0.63 mg Q6HRRT ASHWIN Administration Midodrine 10 mg 08/14/24 14:00 08/17/24 05:05 Midodrine 5 Mg Tablet PO 09/13/24 13:59 10 mg TID ASHWIN Administration Mirtazapine 45 mg 08/09/24 21:00 08/10/24 21:28 Mirtazapine 15 Mg Tablet PO 09/08/24 20:59 45 mg HS ASHWIN Administration Ondansetron HCl 4 mg 08/09/24 15:20 Ondansetron Inj 2 Mg/Ml Inj 2 Ml IV 09/08/24 15:19 Q6H PRN NAUSEA OR VOMITING Protocol Paroxetine HCl 20 mg 08/14/24 21:00 Paroxetine Hcl 10 Mg Tablet PO 09/13/24 20:59 HS ASHWIN Pharmacy Consult 1 each 08/11/24 20:59 Pharmacy Renal Dose Adjustment 1 Ea XX 09/10/24 20:58 PRN PRN CONSULT Risperidone 3 mg 08/14/24 21:00 Risperidone 1 Mg Tablet PO 09/13/24 20:59 HS ASHWIN Sevelamer Carbonate 800 mg 08/17/24 08:00 08/17/24 08:32 Sevelamer Carbonate 800 Mg Tablet PO 09/16/24 07:59 800 mg TIDWM ASHWIN Administration Tamsulosin HCl 0.4 mg 08/09/24 16:00 08/17/24 08:32 Tamsulosin Hcl 0.4 Mg Capsule PO 09/08/24 15:59 0.4 mg QDAY ASHWIN Administration Topiramate 50 mg 08/09/24 21:00 08/13/24 22:46 Topiramate 25 Mg Tablet PO 09/08/24 20:59 Not Given HS ASHWIN Plan Assessment Andrew is a 64 y/o male with past medical history of hypertension, hyperlipidemia, CAD, type 2 diabetes insulin-dependent, CHF, A-fib (on Eliquis 5mg twice daily), history of seizures who is currently admitted into the ICU for acute hypoxic hypercarbic respiratory failure requiring intubation and likely septic shock secondary to influenza A. #Afib with RVR, on home Eliquis [id number] HAS-BLED: 1 AC:Has home Eliquis Plan: ?We recommend continue with Cardizem 30 mg every 6 hours ?Please restart amiodarone drip and oral amio 200 mg bid if HR is high and BP low, however AST in the 80, ALT in the 300s and downtrending. ?Continue heparin drip, consider transitioning to Eliquis at some point ?Keep potassium between 4 and 5 and magnesium greater than 2.0 at all times. ?Recommend to continue to monitor on telemetry ?Severely voulme overloaded and continue dialysis with goal of atelast 3L /day if BP permits and additional sessions if pt can tolerate #Septic shock secondary to, (improving) #Influenza A #? Superimposed bacterial infection Influenza A positive Pt currently has A line at this time Blood cultures NG2D, sputum and MRSA negative Off pressors Patient has finished Tamiflu Plan: -Continue Unasyn #Hx of CAD #Acute exacerbation of HFpEF with diastolic dysfunction #Mild aortic stenosis #NSTEMI type II, likely related to demand ischemia , resolved Echo shows EF 55-60%, normal LV, mild LVH, dilated RV, IVC dilated, AV stenosis Troponins have peaked No urine output past 24 hours, BUN/Cr 6 and 5.6 respectively Patient should get at least 3 L removed each session and additional sessions if blood pressure tolerates Plan: -Patient is still fluid overloaded significantly, nephrology has been on board and continue dialysis. ?We recommend diuresis with Bumex if pt is able to produce urine ?Continue dialysis #IDDM #Hyperlipidemia #Hypertension Total Cholesterol: 83 LDL:30 A1c 7.1 Plan: Holding BP meds as he is hypotensive and on pressors Resumed home Rosuvastatin Primary team to handle BG #Acute hypoxic hypercarbic respiratory failure, improving #Respiratory acidosis, improving #Hx of COPD #OHS Plan: -CPAP at night -Pulmonary hygiene -Chest physiotherapy -Continue levalbuterol #ARIANA, prerenal #Shock liver #History of depression #History of seizures #Normocytic Anemia #Mild Hyponatremia Hypo-osmolar, Hypervolemic Patient seen and care discussed with my attending physician, Dr. Karrie Merritt, PGY-1 Attending Provider Attestation/Addendum I reviewed the resident Dr. Gaming consultation progress note and agree with the resident findings and plan in the note above and have also edited the documentation to reflect my findings and plan. Nacho Yoon M.D. Interventional Cardiology
--- NOTE | 2024-08-17 09:58 | PC.SS ---
Addendum entered by Coreen Graves 08/17/24 10:17: SS follow up note; SS faxed Updated clinicals to JOHN in [place]. Patient will need chair time. Pending TB test and dialysis sessions. Original Note: SS follow up note; Patient is a ICU down grade. Patient will be a new dialysis patient and is being followed by Sophy. SS was informed that patient will possibly need SNF. SS submitted SNF inquiry through [employer]. SS met with patient at bedside during Dialysis. Patient asleep at the time. SS will meet with patient at a later time to discuss discharge plan. Pending PT eval.
[2024-08-17] MEDS: EPOETIN ALFA-EPBX INJ 10,000 UNIT/ML VIAL (ESRD) 10000 UNIT SC (10:45)
--- NOTE | 2024-08-17 11:22 | PC.NURSE ---
PATIENT DIFFICULT AND UNCOOPERATIVE. PATIENT HAS NOT ALLOWED STAFF TO TURN HER SHE STAYS TURNED TO THE LEFT. ASKED PATIENT WHY SHE DOES NOT TURN TO THE RT SIDE. SHE STATED SHE IS THE MOST COMFORTABLE TURNED TO THE LEFT. PATIENT AWARE OF THE POSSIBILITY OF SKIN BREAK DOWN. PATIENT INFORMED THAT NOT TURNING AND STAYING IN ONE POSITION CAN ALSO AFFECT HER LUNGS AND ALSO HER BREATHING. ENCOURAGED HER TO AT LEAST TURN TO HER RT SIDE FOR AN OUR TO ALLOW THE LEFT LUNG TO EXPAND MORE AND TO DIVERT ANY FLUIDS IN HER LEFT LUNG FOR IMPROVEMENT IN RESP STATUS. PATIENT AGREED AND ALLOWED TO BE TURN TO HER RIGHT.
--- NOTE | 2024-08-17 12:59 | PC.SS ---
Addendum entered by Coreen Graves 08/17/24 14:22: SS was informed by Dr. Kidd that patient might not need dialysis. SS met with patient at bedside to discuss discharge plan. SS inquired about SNF and informed him that recommended SNF. Patient agreeable to discharge to SNF. SS provided choices and his choice was to discharge to [facility]. Soniya requested PT note. SS informed her that PT evaluation is pending and SS will send notes once available. Original Note: SS follow up note; Patient is pending PT eval at the time.
--- NOTE | 2024-08-17 13:00 | PC.NURSE ---
Dialysis completed for 3 hrs, tolerated well. Pt no complaints. Respiration even and unlabored. Saturating at 97% on O2 at 1L/min via NC. Able to removed 2800 ml of fluid net. Post tx BP 159/68, HR 90, Temp 97.3. Pt back in his room. Call light within reached. Report given to Geeta GAUTHIER
--- NOTE | 2024-08-17 13:12 | ESPR_ITS ---
<Statement entered by Daniel Cox MD - 08/17/24 15:01> Patient was seen and examined at the bedside this morning. Patient was breathing on room air and was AOx3. He had marked swelling on both lower extremities. Patient is downgraded from ICU after extubation for acute hypoxic respiratory failure due to community-acquired pneumonia ARDS and heart failure. Patient is currently on Unasyn for aspiration pneumonia and completed course of Tamiflu due to influenza pneumonia. Nephrology is consulted for ATN and patient is currently on dialysis. He receives dialysis every day during hospital ICU course. Will wait for recommendations by drug safety specialist if patient needs outpatient dialysis as well and social workers were updated. Workers Compensation Coordinator recommended to continue Cardizem 30 mg 3 times daily and heparin drip as patient currently has femoral catheter line for dialysis and might need placement to tunnel catheter in IJV. Sevelamer was added for hyperphosphatemia. Hemoglobin stable at 10.2. Kidney functions remain consistent with ESRD creatinine is GFR was low. Will continue with current management and follow-up with nephrology and cardiology recommendations. All labs and orders were reviewed. I saw and examined the patient, and I agree with current management stated by Dr Salina MD,PGY1. Plan of care was discussed with the attending physician and resident physician. Disclaimer: Despite multiple revisions, due to the dictation software being used, the document bellow may not be free of grammatical errors including phonetic/typographic errors. However, this does not deter from our commitment to providing health care in the patient's best interest in mind. Dr. Brooke MD, PGY 2 Documentation for date of: 08/17/24 Subjective Subjective Interval history: No overnight events. Patient seen and examined during dialysis. Patient resting comfortably in bed, did not appear in distress. Patient noted mild shortness of breath. Overall patient felt well, denies fevers, chills, abdominal pain, chest pain, nausea, vomiting. Noted significant lower extremity swelling beyond baseline. Begin planning for tunneled cath and outpatient dialysis. Continue antibiotics and Cardizem. Exam Vital Signs Temp Pulse Resp BP Pulse Ox O2 Del Method O2 Flow Rate 97.3 F 90 19 159/68 H 97 Nasal Cannula 1 08/17/24 12:26 08/17/24 12:26 08/17/24 12:08/17/24 12:08/17/24 12:26 08/17/24 08:00 08/17/24 12:26 FiO2 30 08/17/24 12:26 Narrative Exam General: AAOx3 morbidly obese man, bearded male HEENT: Moist mucous membranes, conjunctiva clear, EOMI,skin tags present Cardiovascular: Pansystolic murmur ausculated upon mitral valve and R sternal border, no carotid bruit appreciated, radial pulses +2 bilat, irregularly irregular, R IJ Pulmonary: Diffuse expiratory wheezing, rhonchi bilateral upper lung bates. Poor lung sounds due to body habitus. GI: No ascites noted, bowel sounds present, no tenderness Extremities: venous stasis with stasis dermatitis, unkempt feet, +4 pitting edema bilat Neuro: AAOx3, no focal motor or sensory deficits Objective Labs 08/17/24 05:47 08/17/24 05:47 Labs: Laboratory Results - last 24 hr 08/16/24 08/16/24 08/17/24 13:09 20:20 05:47 WBC 9.7 RBC 3.77 L Hgb 10.2 L Hct 31.4 L MCV 83 MCH 27.1 MCHC 32.5 RDW Std Deviation 46.8 H Plt Count 204 Neut % (Auto) 67 Lymph % (Auto) 13 [place] % (Auto) 12 Eos % (Auto) 2 Baso % (Auto) 0 Neut # (Auto) 6.5 Lymph # (Auto) 1.3 [place] # (Auto) 1.2 H Eos # (Auto) 0.2 Baso # (Auto) 0.0 Immature Gran # (Auto) 0.51 H Absolute Nucleated RBC 0.00 Immature Gran % 5 H Nucleated RBC % 0 PT 11.9 INR 1.1 APTT 61.0 H D 54.3 H 49.8 H Sodium 135 L Potassium 3.6 Chloride 94 L Carbon Dioxide 27.2 Anion Gap 14 BUN 65 H Creatinine 5.6 H* D Estim Creat Clear Calc 21.3 L eGFR 11 L* BUN/Creatinine Ratio 12 Glucose 208 H Calculated Osmolality 294 Calcium 8.5 Corrected Calcium 8.9 Phosphorus 6.1 H Magnesium 2.4 Total Bilirubin 1.0 AST 56 H ALT 305 H Alkaline Phosphatase 40 L Total Protein 6.4 Albumin 3.5 Globulin 2.9 Albumin/Globulin Ratio 1.2 ABG Interpretation ABG results: 0108/10/24 08/10/24 11:34 13:55 16:46 ABG pH 7.21 L 6.97 L* D 6.99 L* ABG pCO2 49 H 95 H* D 78 H* D ABG pO2 60 L 64 L 41 L* D ABG HCO3 20 22 19 L ABG O2 Saturation 86 L 80 L 58 L ABG Base Excess -8 L -12 L -14 L VBG pH VBG pCO2 VBG pO2 VBG Base Excess 08/10/24 08/10/24 08/10/24 19:28 20:48 21:13 ABG pH 7.01 L* Cancelled 7.08 L* ABG pCO2 75 H* Cancelled 69 H ABG pO2 47 L* Cancelled 61 L ABG HCO3 19 L Cancelled 20 ABG O2 Saturation 72 L Cancelled 87 L ABG Base Excess -13 L Cancelled -11 L VBG pH VBG pCO2 VBG pO2 VBG Base Excess 08/11/24 08/11/24 08/11/24 00:34 04:08 14:56 ABG pH 7.14 L* 7.16 L* 7.17 L* ABG pCO2 60 H 54 H 50 H ABG pO2 83 D 114 H D 72 L D ABG HCO3 20 19 L 18 L ABG O2 Saturation 96 99 H 93 ABG Base Excess -10 L -10 L -10 L VBG pH VBG pCO2 VBG pO2 VBG Base Excess 08/11/24 08/11/24 08/12/24 20:05 23:14 02:06 ABG pH 7.20 L 7.25 L 7.27 L ABG pCO2 55 H 49 H 50 H ABG pO2 82 L 93 90 ABG HCO3 21 22 23 ABG O2 Saturation 96 98 98 ABG Base Excess -7 L -6 L -4 L VBG pH VBG pCO2 VBG pO2 VBG Base Excess 08/12/24 08/12/24 08/12/24 06:30 10:13 10:45 ABG pH 7.34 L 7.31 L ABG pCO2 41 42 ABG pO2 177 H D 134 H D ABG HCO3 22 21 ABG O2 Saturation 100 H 100 H ABG Base Excess -4 L -5 L VBG pH 7.30 L VBG pCO2 43 VBG pO2 53 VBG Base Excess -5 L 08/12/24 08/12/24 08/13/24 14:10 19:57 04:27 ABG pH 7.33 L 7.35 7.35 ABG pCO2 40 41 40 ABG pO2 114 H D 103 95 ABG HCO3 21 23 22 ABG O2 Saturation 99 H 99 H 98 ABG Base Excess -5 L -3 -4 L VBG pH VBG pCO2 VBG pO2 VBG Base Excess 08/13/24 08/13/24 08/13/24 20:14 21:45 23:54 ABG pH 7.26 L 7.26 L 7.26 L ABG pCO2 61 H D 60 H 59 H ABG pO2 84 201 H D 151 H D ABG HCO3 27 H 27 H 27 H ABG O2 Saturation 96 100 H 100 H ABG Base Excess -1 -1 -1 VBG pH VBG pCO2 VBG pO2 VBG Base Excess 08/14/24 08/14/24 08/15/24 02:49 18:04 06:30 ABG pH 7.39 D 7.32 L 7.47 H D ABG pCO2 41 D 53 H D 29 L D ABG pO2 292 H D 204 H D 193 H ABG HCO3 25 27 H 22 ABG O2 Saturation 101 H 100 H 99 H ABG Base Excess 0 0 -1 VBG pH VBG pCO2 VBG pO2 VBG Base Excess 08/16/24 04:14 ABG pH 7.33 L D ABG pCO2 50 H D ABG pO2 149 H D ABG HCO3 26 ABG O2 Saturation 100 H ABG Base Excess 0 VBG pH VBG pCO2 VBG pO2 VBG Base Excess Quality Measures Quality Measures VTE prophylaxis Assessment & Plan Assessment Current Active Medications: Generic Name Dose Route Start Last Admin Trade Name Camiloq PRN Reason Stop Dose Admin Acetaminophen 650 mg 08/11/24 08:37 Acetaminophen 325 Mg Tablet PO 09/10/24 05:56 Q6HR PRN FEVER >101 Aspirin 81 mg 08/11/24 09:00 08/17/24 08:32 Aspirin Ec 81 Mg Tabec PO 09/10/24 08:59 81 mg QDAY ASHWIN Administration Rosuvastatin 20 Mg 0 ea 08/09/24 21:00 08/13/24 22:47 PO 09/08/24 20:59 Not Given HS ASHWIN Dextrose 25 ml 08/09/24 15:31 Dextrose 50%-Water Inj 50 Ml Syringe IV 09/08/24 15:30 Q15MIN PRN BG 50-70 responsive npo pt Dextrose 50 ml 08/09/24 15:31 08/12/24 04:24 Dextrose 50%-Water Inj 50 Ml Syringe IV 09/08/24 15:30 50 ml Q15MIN PRN Administration BG <50 OR BG <70 & pt unresponsive Diltiazem HCl 30 mg 08/15/24 22:00 08/17/24 05:06 Diltiazem 30 Mg Tablet PO 09/14/24 21:59 30 mg TID ASHWIN Administration Glucagon 1 mg 08/09/24 15:31 Glucagon Inj 1 Mg Vial IM Q15MIN PRN BG <70, and no IV access Heparin Sodium (Porcine) 3,000 unit 08/12/24 15:11 08/16/24 18:32 Heparin Sod Inj 1000 Unit/Ml Vial 10 Ml INDWELLCAT 08/26/24 15:10 3,000 unit PRN PRN Administration DIALYSIS Heparin Sodium/Dextrose 25,000 unit in 250 mls @ 17.721 mls/hr 08/12/24 14:30 08/16/24 21:32 Heparin In D5w Ivpb IV 08/26/24 14:29 11 units/kg/hr .Q14H7M ASHWIN 17.721 mls/hr Titration Protocol 11 UNITS/KG/HR Albumin Human 25 gm in 100 mls @ 100 mls/min 08/12/24 15:11 08/15/24 14:00 Albuminar-25 Ivpb IV Infused PRN PRN Infusion DIALYSIS Ampicillin Sodium/Sulbactam 100 mls @ 200 mls/hr 08/13/24 12:00 08/17/24 05:06 Sodium 3 gm/ Sodium Chloride IV 08/20/24 11:59 200 mls/hr Q6HR ASHWIN Administration Insulin Glargine 15 unit 08/12/24 09:30 08/17/24 08:32 Insulin Glargine (Lantus) 5 Unit/0.05 Ml (Per 5 Units) SC 09/11/24 09:29 15 unit QDAY ASHWIN Administration Insulin Human Lispro 0 unit 08/16/24 18:00 08/17/24 07:46 Insulin Lispro (Admelog) 1 Unit/0.01 Ml Unit SC 09/15/24 17:59 8 unit ACHS ASHWIN Administration Protocol Levalbuterol HCl 0.63 mg 08/13/24 19:15 08/17/24 06:48 Levalbuterol Rt 0.63 Mg/3 Ml Nebu INH 09/12/24 19:14 0.63 mg Q6HRRT ASHWIN Administration Midodrine 10 mg 08/14/24 14:00 08/17/24 05:05 Midodrine 5 Mg Tablet PO 09/13/24 13:59 10 mg TID ASHWIN Administration Mirtazapine 45 mg 08/09/24 21:00 08/10/24 21:28 Mirtazapine 15 Mg Tablet PO 09/08/24 20:59 45 mg HS ASHWIN Administration Ondansetron HCl 4 mg 08/09/24 15:20 Ondansetron Inj 2 Mg/Ml Inj 2 Ml IV 09/08/24 15:19 Q6H PRN NAUSEA OR VOMITING Protocol Paroxetine HCl 20 mg 08/14/24 21:00 Paroxetine Hcl 10 Mg Tablet PO 09/13/24 20:59 HS ASHWIN Pharmacy Consult 1 each 08/11/24 20:59 Pharmacy Renal Dose Adjustment 1 Ea XX 09/10/24 20:58 PRN PRN CONSULT Risperidone 3 mg 08/14/24 21:00 Risperidone 1 Mg Tablet PO 09/13/24 20:59 HS ASHWIN Sevelamer Carbonate 800 mg 08/17/24 08:00 08/17/24 08:32 Sevelamer Carbonate 800 Mg Tablet PO 09/16/24 07:59 800 mg TIDWM ASHWIN Administration Tamsulosin HCl 0.4 mg 08/09/24 16:00 08/17/24 08:32 Tamsulosin Hcl 0.4 Mg Capsule PO 09/08/24 15:59 0.4 mg QDAY ASHWIN Administration Topiramate 50 mg 08/09/24 21:00 08/13/24 22:46 Topiramate 25 Mg Tablet PO 09/08/24 20:59 Not Given HS ASHWIN Plan 64-year-old male with past medical history of hypertension, hyperlipidemia, coronary artery disease, type diabetes mellitus insulin-dependent, CHF, atrial fibrillation, history of seizures who was admitted to [facility] for management of CHF exacerbation and influenza A. Patient upgraded to ICU after emergent intubation post worsening of mentation and bedside aspiration with inability to protect airway. Successfully extubated, downgraded to floors for further management. # Acute renal failure secondary to ischemic ATN # Fluid overload Treatment: -Continue inpatient dialysis -Continue midodrine 10 TID -Will monitor renal function -Consulted pharmacy to dose medications renally -Avoid nephrotoxic agents -Follow renal panel in a.m. -Savelamer -Plan for tunneled cath placement tomorrow, outpatient dialysis #Acute hypoxic/hypercapnic respiratory failure, resolved #Influenza A #Aspiration pneumonia #COPD #Suspicion of obesity hypoventilation syndrome Patient was given Zosyn(08/10-08/13) , azithromycin, (08/10-08/12) linezolid (08/11-08/13) vancomycin (08/10-08/11), Tamiflu (08/09-08/14) Treatment: -DuoNeb every 6 hours -Continue midodrine 10 TID -Continue Unasyn (08/13- -BiPAP every night as needed -Patient is a chronic CO2 retainer, correct bicarb as needed -Continue Unasyn (08/13-) #Atrial fibrillation with rapid ventricular response Treatment: -Continue Cardizem 30 p.o. 3 times daily -Continue heparin drip -Will consider digoxin for rate control if needed -Discontinued amiodarone due to concern of hepatotoxicity, will monitor heart rate -Cardiology following #Congestive heart failure, HFpEF EF 55 to 60% # Mild aortic stenosis, mitral stenosis Patient history as stated. Cardiology on board. -Monitor urine output -Scheduled for dialysis today, plan to remove 3 L will follow-up -Will titrate bicarb for CO2 retention during dialysis #History of seizures Patient has a past medical history of seizures, last seizure was several years ago and patient cannot recall but has been stable. Home medication topiramate 50 mg HS, will continue to hold. # Septic shock secondary to aspiration pneumonia, resolved Patient initially admitted for septic shock, upgraded to ICU. Patient was extubated and downgraded to floors. #Hypertension #Hyperlipidemia #History of coronary artery disease Has a past medical history of hyperlipidemia with a previous history of MD approximately 5 years ago. Patient takes rosuvastatin 20 mg at bedtime, holding rosuvastatin due to hepatitis Patient has a past medical history of hypertension on losartan # Hepatitis 2/2 shock liver versus drug toxicity versus fluid overload Will continue to maintain mean arterial pressure >65 Discontinued amiodarone, topiramate Continue to hold psychiatry medication -Follow LFTs in AM Endocrine #Type 2 diabetes mellitus, insulin-dependent # Hyperglycemia Patient has a past medical history of diabetes mellitus type 2 Home medication include Lantus 12 units, Januvia (Sitagliptin), Jardiance (Empagliflozin), and Ozempic. Diagnostic workup: Hemoglobin A1c 7.1 Treatment: -Started on Lantus 15 units daily, sliding scale lispro -Monitor fingerstick blood glucose every 6 hours -Goal fingerstick BG 140-180 #Influenza A Influenza positive, completed course of Tamiflu. #Acute metabolic encephalopathy, resolved Multifactorial: Acute hypoxic/hypercapnic respiratory failure, underlying acidosis, underlying sepsis, polypharmacy -Will continue to hold psych medications DVT prophylaxis: Heparin drip GI prophylaxis: None Diet: Carb consistent low, renal, fluid restriction Lines: Femoral line, peripheral IV, central line Code status: Full code Plan of care discussed with senior resident Dr. Cox PGY?[address] Kidd. Xu Downing MD PGY-1 Attending Provider Attestation/Addendum I attest that I was physically present for the evaluation, physical examination, lab and imaging review of the patient with the residents. I discussed the case with the residents and agree with the findings and plans of care as documented above. Patient is a ICU downgrade after management of acute hypoxic/hypercapnic respiratory failure secondary to aspiration pneumonia. He was intubated initially, extubated yesterday. At bedside, saturating well on 2 L nasal cannula, states that he is feeling well and does not have any new complaints. Patient has been receiving daily dialysis for his acute kidney injury likely secondary to ATN. Discussed with nephrology, we will order dialysis catheter tomorrow. Patient will also likely need outpatient dialysis. Continues to be on IV antibiotics. Blood pressure noted to be improved significantly, we will hold midodrine and monitor closely if continues to remain stable or becomes hypertensive, we will consider restarting his home medications. On insulin regimen for hyperglycemia. Todd Kidd MD
--- NOTE | 2024-08-17 15:31 | PC.NURSE ---
PATIENT AWAKE AND ALERT. VERY WEAK. ALL EXTREMITIES SWOLLEN. HAS DIFFICULTY FEEDING HIMSELF DUE TO WEAKNESS AND USES WITH DEXTERITY MAKING IT DIFFICULT TO USE UTINSILS
[2024-08-17 16:51] LABS: Partial Thromboplastin Time 66.2 Seconds (22.0-36.0)
[2024-08-17] MEDS: TUBERCULIN PPD INJ 5 UNIT/0.1 ML DOSE ID (18:20)
--- NOTE | 2024-08-17 19:22 | PC.NURSE ---
HEPARIN BAG CHANGED AT 0830. WAS BEING TAKEN TO DIALYSIS SO DID NOT SCAN. BAG CHANGED AND DOSE INCREASED BY 2UNITS PER PROTOCOL. PTT WAS 49.8, WAS 11UNITS/KG/HR INCREASED TO 13UNITS/KG/HR
[2024-08-17 23:21] LABS: Partial Thromboplastin Time 29.3 Seconds (22.0-36.0)
[2024-08-18] VITALS (18 sets, daily range): BP systolic 115–135; BP diastolic 68–93; PULSE 81–120; RESP 12–23; TEMP 36–36.9; O2SAT 97–100; BMI 44.4; BMI 12.0
--- NOTE | 2024-08-18 | XR_ITS ---
Examination: Venous access removal temporary dialysis catheter Exam date and time: August 18, 2024 1458 hours INDICATIONS: Renal failure post placement permanent tunneled dialysis catheter, no longer needed for the temporary dialysis catheter TECHNIQUE AND FINDINGS: Skin prepped the entrance site of the right common femoral temporary dialysis catheter sterile drape applied hand hygiene Careful removal of the dialysis catheter with direct pressure applied for control of hemostasis Estimated blood loss 0 cc IMPRESSION: Successful venous assess removal temporary dialysis catheter
[2024-08-18] MEDS: LEVALBUTEROL RT 0.63 MG/3 ML NEBU INH ×4 (02:17→18:26)
[2024-08-18] MEDS: DILTIAZEM 30 MG TABLET PO ×3 (05:15→21:19)
[2024-08-18 06:09] LABS: Basophils % (Auto) 0 % (0-2.5); Eosinophils # (Auto) 0.2 Thou/mm3 (0.0-0.5); Eosinophils % (Auto) 2 % (0-10); Hematocrit 31.5 % (41.0-53.0); Hemoglobin 10.2 g/dL (13.5-16.0); Immature Granulocytes % (Auto) 7 % (0-0); Immature Granulocytes Auto 0.67 Thou/mm3 (0.00-0.00); Lymphocytes # (Auto) 1.4 Thou/mm3 (1.0-4.8); Lymphocytes % (Auto) 14 % (10-50); Mean Corpuscular HGB Conc 32.4 g/dl (31.0-37.0); Mean Corpuscular Hemoglobin 27.3 pg (25.0-35.0); Mean Corpuscular Volume 84 fL (80-100); Monocytes # (Auto) 1.2 Thou/mm3 (0.0-0.8); Monocytes % (Auto) 12 % (0-12); Neutrophils # (Auto) 6.3 Thou/mm3 (1.8-7.7); Neutrophils % (Auto) 65 % (37-80); Nucleated Red Blood Cell # 0.03 Thou/mm3 (0.00-0.00); Nucleated Red Blood Cell % 0 /100 WBC (0); Platelet Count 234 Thou/mm3 (140-440); RDW Standard Deviation 47.9 fL (35.1-43.9); Red Blood Count 3.74 Miln/mm3 (4.50-5.90); White Blood Count 9.7 Thou/mm3 (3.8-10.6)
[2024-08-18 06:13] LABS: Partial Thromboplastin Time 30.8 Seconds (22.0-36.0)
[2024-08-18 06:29] LABS: Alanine Aminotransferase 210 U/L (10-49); Albumin, Serum 3.4 gm/dL (3.4-4.8); Albumin/Globulin Ratio 1.1 (1.2-2.2); Alkaline Phosphatase 38 U/L (46-116); Anion Gap 13 (7-16); Aspartate Amino Transferase 32 U/L (0-34); BUN/Creatinine Ratio 11 Ratio (12-20); Bilirubin,Total 0.9 mg/dL (0.3-1.2); Blood Urea Nitrogen 53 mg/dL (9-23); Calcium 8.3 mg/dL (8.3-10.6); Calcium (Corrected) 8.8 mg/dL (8.5-10.1); Carbon Dioxide 28.5 mMol/L (20.0-31.0); Chloride 94 mMol/L (98-107); Estimated Creatinine Clearance 23.7 mL/min (>60); Glucose 128 mg/dL (74-106); Magnesium 2.3 mg/dL (1.6-2.6); Osmolality,Calculated 286 (275-295); Phosphorous 5.5 mg/dL (2.4-5.1); Potassium 3.4 mMol/L (3.4-5.1); Sodium 135 mMol/L (136-145); Total Protein 6.4 gm/dL (5.7-8.2); eGFR 12 See Note
--- NOTE | 2024-08-18 08:00 | XR_ITS ---
Ultrasound-guided needle placement right internal jugular vein Permanent tunneled dialysis catheter insertion, percutaneous Fluoroscopy AP chest, portable, single view. Date and time of procedure: August 18, 2024 1321 hours INDICATIONS: Renal insufficiency on laboratory examination this week, need for stat and long-term dialysis Informed consent provided Technique: A timeout was completed verifying correct patient, procedure, site, positioning, and special equipment if applicable. The patient was placed in a dependent position appropriate for dialysis catheter placement based on the vein to be cannulated. The patient'sright neck was prepped and draped in sterile fashion. Maximum Sterile Barrier Technique used including cap, mask, sterile gown, sterile gloves, and sterile full body drape. If ultrasound technique used: sterile gel and sterile probe covers. Hand Hygiene performed using proper scrub, soap and water, or alcohol-based hand rub. 1% lidocaine was used to anesthetize the surrounding skin area The [facility] [place] portable ultrasound apparatus was utilized to confirm patency of the right internal jugular vein Utilizing ultrasonographic guidance successful 21-gauge needle puncture into the right internal jugular vein Ultrasound images were recorded and stored. Vessel micropuncture was performed with 21-gauge needle. 0.18 wire guide is introduced into the vein. 0.18 wire is introduced into the vena cava under fluoroscopy. Subcutaneous tunnel formed in the upper chest. Permanent tunneled dialysis catheter placed in the subcutaneous tunnel. Dilators were introduced over the J-wire guide. Tunneled dialysis catheter is introduced through a dilator with venous sheath into the superior vena cava under fluoroscopic guidance. The catheter is sutured in place to the skin and a sterile dressing applied. Perfusion to the extremity distal to the point of catheter insertion is checked and found to be adequate Attending radiologist was present for the entire procedure Estimated blood loss2 cc. The patient tolerated the procedure well and there were no complications Impression: Successful ultrasound-guided needle placement right internal jugular vein Successful permanent tunneled dialysis catheter insertion, percutaneous Fluoroscopy 0.4 minute radiation dose 9.15 moe 1 spot fluoroscopic chest film. AP chest performed at completion procedure demonstrates satisfactory position dialysis catheter. May use dialysis catheter.
--- NOTE | 2024-08-18 08:49 | PD.RESPRO ---
Documentation for date of: 08/18/24 Subjective Subjective Interval history: Andrew Bella is a 64-year-old male with a past medical history of hypertension, hyperlipidemia, CAD, insulin-dependent type 2 diabetes mellitus, CHF, A-fib, depression, and history of seizures who recently moved from [place] and initially presented to ED on 08/09 with dyspnea and productive cough with associated pleuritic chest pain, cough, wheezing, and weakness. Also noted to have bilateral lower extremity edema and orthopnea, but denied paroxysmal nocturnal dyspnea. In ED, vitals significant for temperature of 100.8 ?F and on room air. Labs showed BUN 29, 1.6, GFR 48, glucose 228, LDH 256, BNP 275, UA 4+ glucose, U tox negative. Influenza A positive. Patient subsequently started on Tamiflu as well as Lasix for possible CHF exacerbation. Throughout hospital course, on 08/10 patient has had 2 rapid responses very well for desaturation requiring BiPAP and IV steroids/antibiotics and the second for hypoxia with altered mentation, requiring intubation for airway protection prompting transfer to ICU for further care. Around time of intubation, ABG showed pH 6.97, pCO2 97. MAP noted to drop below 65 and was started on Levophed and vasopressin. Cardiology consulted for further evaluation of possible CHF exacerbation and A-fib. Although unable to determine baseline renal function, creatinine increased from 1.8 to 2.9 overnight and so nephrology was consulted. Given that patient is intubated, history obtained from chart review. 08/11: Patient seen and examined in ICU, intubated and undergoing cooling measures for fever of 103.1 ?F. Creatinine noted to jump from 1.8 to 2.9 overnight. Suspect acute tubular necrosis in setting of hypotension with MAP less than 65 mmHg noted on 08/10. Also associated increase in lactic acid from 2.2 to 4.6 as well as overnight increase in LFTs (AST 17 to 553 and AST from 10 to 54). Will follow-up on urine studies as well as renal ultrasound. 08/12: Patient seen and examined in ICU, intubated and ventilated. Labs and orders reviewed. Na 129, BUN 67, Cr steadily increasing to 4.0, Ca 8.2. LFTs remain elevated (AST 423, ALT 364). Produced less than 20 cc of urine overnight. Still pending urine studies. Vancomycin changed to linezolid, continuing azithromycin and Zosyn. CTA chest: Bilateral pneumonia with arts pattern. Repeat CXR showed worsening of pneumonia and ARDS. DC'd IV steroids and amlodipine. Vas-Cath placed for hemodialysis. 08/13: Patient seen and examined in ICU, inbutaed and ventilated. Labs and orderse reviewed. Na stable at 129, BUN 66 and Cr again increased from 4.0 to 4.2. LFTs continue to uptrend (AST 688, ALT 597). Patient was given bumex x1 yesterday but had minimal urine output and so he underwent a session of dialysis for two hours with plans for hemodialysis again today. 08/14: Currently seen in ICU. Remains on ventilator and pressors. Blood pressure 123/76, heart rate 105. WBC 11.3, hemoglobin 10, platelets 158. Sodium 131, potassium 4, BUN 58, creatinine 4, total bilirubin 1.4, AST 778, ALT 752, alk phos 42, total protein 5.8, ammonia level 18, albumin 3.3. Abdominal x-ray showed no air in distended stomach. Chest x-ray showed extensive bilateral pneumonia with fluid overload. 08/15: Currently seen in ICU. Remains on ventilator. Blood sugar 123. Blood pressure 107/67, heart rate 110 to 130. WBC 11.9, hemoglobin 10, platelets 171. ABG showing pH 7.47, pCO2 29, pO2 193, bicarbonate 22.Sodium 133, potassium 3.8, bicarbonate 23.4, BUN 52, creatinine 4.3, calcium 9, phosphorus 3.8, AST 455, ALT 669, total bilirubin 1.3, albumin 3.1 Chest x-ray showed extensive bilateral pneumonia with fluid overload. Will receive extra session of dialysis today. Goal will be to increase bicarbonate for compensation for respiratory acidosis. 08/16: Seen and examined in ICU. Per ICU team, possible trial for extubation today and will plan for hemodialysis afterwards. Vitals stable, currently on mechanical ventilation, no longer on pressors other than midodrine. WBC downtrending from 12 to 10.8, hemoglobin stable at 10. ABG showing pH 7.33, pCO2 50, pO2 149. Na 135, K 3.9, BUN 51, Cr increased from 3.7 to 4.5, phosphorus increased from 3.8 to 6.3. LFTs improving, AST 142 and ALT 446. 08/17: Seen and examined while undergoing dialysis and tolerating well. Successfully extubated and downgraded to floors yesterday. Denies shortness of breath, chest pain, fever, chills, muscle aches/pains. WBC downtrending, hemoglobin stable, and LFTs also downtrending. However, renal function remains decreased despite daily dialysis with creatinine increasing from 4.5 to 5.6, BUN increasing from 51 to 65, phosphorus from 6.3 to 6.1. 08/18: Seen and examined in telemetry, resting comfortably in bed and states that he continues to feel overall better. No acute overnight events. Continues to be on 4 L NC and saturating 99%, otherwise vitals stable. WBC now wnl, hemoglobin stable at 10.2. Na borderline low at 135, renal function improved (BUN decreased from 65 to 53 and Cr decreased from 5.6 to 5.0). Phos decreasing from 6.1 to 5.5 on Sevelamer. Will undergo hemodialysis today with arrangements being made for outpatient dialysis as well. PPD already ordered, ordered HIV and hepatitis panels today. Exam Vital Signs Temp Pulse Resp BP Pulse Ox O2 Del Method O2 Flow Rate 96.8 F 97 19 126/79 99 Nasal Cannula 4 08/18/24 08:00 08/18/24 08:00 08/18/24 08:00 08/18/24 08:00 08/18/24 08:00 08/18/24 08:00 08/18/24 08:00 FiO2 30 08/17/24 12:26 Narrative Exam General: extubated, breathing comfortably on NC, AOx3, no acute distress, able to speak full sentences HEENT: NC/AT, mucous membranes moist, bilateral sclera anicteric Cardiovascular: systolic murmur appreciated, S1/S2 present Pulmonary: coarse lung sounds appreciated bilaterally Abdominal: obese, bowel sounds present, non-tender Musculoskeletal: 2+ bilateral lower extremity edema Skin: purple discoloration in bilateral lower extremities, intact Objective Labs 08/19/24 05:09 08/19/24 08:45 Labs: Laboratory Results - last 24 hr 08/17/24 08/17/24 08/18/24 15:08 22:57 05:31 WBC 9.7 RBC 3.74 L Hgb 10.2 L Hct 31.5 L MCV 84 MCH 27.3 MCHC 32.4 RDW Std Deviation 47.9 H Plt Count 234 D Neut % (Auto) 65 Lymph % (Auto) 14 Bledsoe % (Auto) 12 Eos % (Auto) 2 Baso % (Auto) 0 Neut # (Auto) 6.3 Lymph # (Auto) 1.4 Bledsoe # (Auto) 1.2 H Eos # (Auto) 0.2 Baso # (Auto) 0.0 Immature Gran # (Auto) 0.67 H Absolute Nucleated RBC 0.03 H Immature Gran % 7 H Nucleated RBC % 0 APTT 66.2 H D 29.3 D 30.8 Sodium 135 L Potassium 3.4 Chloride 94 L Carbon Dioxide 28.5 Anion Gap 13 BUN 53 H Creatinine 5.0 H* D Estim Creat Clear Calc 23.7 L eGFR 12 L* BUN/Creatinine Ratio 11 L Glucose 128 H D Calculated Osmolality 286 Calcium 8.3 Corrected Calcium 8.8 Phosphorus 5.5 H Magnesium 2.3 Total Bilirubin 0.9 AST 32 ALT 210 H Alkaline Phosphatase 38 L Total Protein 6.4 Albumin 3.4 Globulin 3.0 Albumin/Globulin Ratio 1.1 L ABG Interpretation ABG results: 08/10/24 08/10/24 08/10/24 11:34 13:55 16:46 ABG pH 7.21 L 6.97 L* D 6.99 L* ABG pCO2 49 H 95 H* D 78 H* D ABG pO2 60 L 64 L 41 L* D ABG HCO3 20 22 19 L ABG O2 Saturation 86 L 80 L 58 L ABG Base Excess -8 L -12 L -14 L VBG pH VBG pCO2 VBG pO2 VBG Base Excess 08/10/24 08/10/24 08/10/24 19:28 20:48 21:13 ABG pH 7.01 L* Cancelled 7.08 L* ABG pCO2 75 H* Cancelled 69 H ABG pO2 47 L* Cancelled 61 L ABG HCO3 19 L Cancelled 20 ABG O2 Saturation 72 L Cancelled 87 L ABG Base Excess -13 L Cancelled -11 L VBG pH VBG pCO2 VBG pO2 VBG Base Excess 08/11/24 08/11/24 08/11/24 00:34 04:08 14:56 ABG pH 7.14 L* 7.16 L* 7.17 L* ABG pCO2 60 H 54 H 50 H ABG pO2 83 D 114 H D 72 L D ABG HCO3 20 19 L 18 L ABG O2 Saturation 96 99 H 93 ABG Base Excess -10 L -10 L -10 L VBG pH VBG pCO2 VBG pO2 VBG Base Excess 08/11/24 08/11/24 08/12/24 20:05 23:14 02:06 ABG pH 7.20 L 7.25 L 7.27 L ABG pCO2 55 H 49 H 50 H ABG pO2 82 L 93 90 ABG HCO3 21 22 23 ABG O2 Saturation 96 98 98 ABG Base Excess -7 L -6 L -4 L VBG pH VBG pCO2 VBG pO2 VBG Base Excess 08/12/24 08/12/24 08/12/24 06:30 10:13 10:45 ABG pH 7.34 L 7.31 L ABG pCO2 41 42 ABG pO2 177 H D 134 H D ABG HCO3 22 21 ABG O2 Saturation 100 H 100 H ABG Base Excess -4 L -5 L VBG pH 7.30 L VBG pCO2 43 VBG pO2 53 VBG Base Excess -5 L 08/12/24 08/12/24 08/13/24 14:10 19:57 04:27 ABG pH 7.33 L 7.35 7.35 ABG pCO2 40 41 40 ABG pO2 114 H D 103 95 ABG HCO3 21 23 22 ABG O2 Saturation 99 H 99 H 98 ABG Base Excess -5 L -3 -4 L VBG pH VBG pCO2 VBG pO2 VBG Base Excess 08/13/24 08/13/24 08/13/24 20:14 21:45 23:54 ABG pH 7.26 L 7.26 L 7.26 L ABG pCO2 61 H D 60 H 59 H ABG pO2 84 201 H D 151 H D ABG HCO3 27 H 27 H 27 H ABG O2 Saturation 96 100 H 100 H ABG Base Excess -1 -1 -1 VBG pH VBG pCO2 VBG pO2 VBG Base Excess 08/14/24 08/14/24 08/15/24 02:49 18:04 06:30 ABG pH 7.39 D 7.32 L 7.47 H D ABG pCO2 41 D 53 H D 29 L D ABG pO2 292 H D 204 H D 193 H ABG HCO3 25 27 H 22 ABG O2 Saturation 101 H 100 H 99 H ABG Base Excess 0 0 -1 VBG pH VBG pCO2 VBG pO2 VBG Base Excess 08/16/24 04:14 ABG pH 7.33 L D ABG pCO2 50 H D ABG pO2 149 H D ABG HCO3 26 ABG O2 Saturation 100 H ABG Base Excess 0 VBG pH VBG pCO2 VBG pO2 VBG Base Excess Quality Measures Quality Measures VTE prophylaxis Assessment & Plan Assessment Current Active Medications: Generic Name Dose Route Start Last Admin Trade Name Freq PRN Reason Stop Dose Admin Acetaminophen 650 mg 08/11/24 08:37 Acetaminophen 325 Mg Tablet PO 09/10/24 05:56 Q6HR PRN FEVER >101 Aspirin 81 mg 08/11/24 09:00 08/17/24 08:32 Aspirin Ec 81 Mg Tabec PO 09/10/24 08:59 81 mg QDAY ASHWIN Administration Rosuvastatin 20 Mg 0 ea 08/09/24 21:00 08/13/24 22:47 PO 09/08/24 20:59 Not Given HS ASHWIN Dextrose 25 ml 08/09/24 15:31 Dextrose 50%-Water Inj 50 Ml Syringe IV 09/08/24 15:30 Q15MIN PRN BG 50-70 responsive npo pt Dextrose 50 ml 08/09/24 15:31 08/12/24 04:24 Dextrose 50%-Water Inj 50 Ml Syringe IV 09/08/24 15:30 50 ml Q15MIN PRN Administration BG <50 OR BG <70 & pt unresponsive Diltiazem HCl 30 mg 08/15/24 22:00 08/18/24 05:15 Diltiazem 30 Mg Tablet PO 09/14/24 21:59 30 mg TID ASHWIN Administration Glucagon 1 mg 08/09/24 15:31 Glucagon Inj 1 Mg Vial IM Q15MIN PRN BG <70, and no IV access Heparin Sodium (Porcine) 3,000 unit 08/12/24 15:11 08/16/24 18:32 Heparin Sod Inj 1000 Unit/Ml Vial 10 Ml INDWELLCAT 08/26/24 15:10 3,000 unit PRN PRN Administration DIALYSIS Heparin Sodium/Dextrose 25,000 unit in 250 mls @ 17.721 mls/hr 08/12/24 14:30 08/17/24 08:30 Heparin In D5w Ivpb IV 08/26/24 14:29 13 units/kg/hr .Q14H7M ASHWIN 20.943 mls/hr Administration Protocol 11 UNITS/KG/HR Albumin Human 25 gm in 100 mls @ 100 mls/min 08/12/24 15:11 08/15/24 14:00 Albuminar-25 Ivpb IV Infused PRN PRN Infusion DIALYSIS Ampicillin Sodium/Sulbactam 100 mls @ 200 mls/hr 08/17/24 21:00 08/17/24 20:50 Sodium 3 gm/ Sodium Chloride IV 08/20/24 11:59 200 mls/hr Q12HR ASHWIN Administration Protocol Potassium Chloride 10 meq in 100 mls @ 100 mls/hr 08/18/24 08:13 Kcl Ivpb IV 08/18/24 10:12 Q1H ASHWIN Insulin Glargine 15 unit 08/12/24 09:30 08/17/24 08:32 Insulin Glargine (Lantus) 5 Unit/0.05 Ml (Per 5 Units) SC 09/11/24 09:29 15 unit QDAY ASHWIN Administration Insulin Human Lispro 0 unit 08/16/24 18:00 08/18/24 07:42 Insulin Lispro (Admelog) 1 Unit/0.01 Ml Unit SC 09/15/24 17:59 Not Given ACHS [facility] Protocol Levalbuterol HCl 0.63 mg 08/13/24 19:15 08/18/24 07:22 Levalbuterol Rt 0.63 Mg/3 Ml Nebu INH 09/12/24 19:14 0.63 mg Q6HRRT ASHWIN Administration Midodrine 10 mg 08/14/24 14:00 08/17/24 14:30 Midodrine 5 Mg Tablet PO 09/13/24 13:59 Not Given TID ASHWIN Mirtazapine 45 mg 08/09/24 21:00 08/10/24 21:28 Mirtazapine 15 Mg Tablet PO 09/08/24 20:59 45 mg HS ASHWIN Administration Ondansetron HCl 4 mg 08/09/24 15:20 Ondansetron Inj 2 Mg/Ml Inj 2 Ml IV 09/08/24 15:19 Q6H PRN NAUSEA OR VOMITING Protocol Paroxetine HCl 20 mg 08/14/24 21:00 Paroxetine Hcl 10 Mg Tablet PO 09/13/24 20:59 HS [facility] Pharmacy Consult 1 each 08/11/24 20:59 Pharmacy Renal Dose Adjustment 1 Ea XX 09/10/24 20:58 PRN PRN CONSULT Risperidone 3 mg 08/14/24 21:00 Risperidone 1 Mg Tablet PO 09/13/24 20:59 HS [facility] Sevelamer Carbonate 800 mg 08/17/24 08:00 08/17/24 18:00 Sevelamer Carbonate 800 Mg Tablet PO 09/16/24 07:59 800 mg TIDWM ASHWIN Administration Tamsulosin HCl 0.4 mg 08/09/24 16:00 08/17/24 08:32 Tamsulosin Hcl 0.4 Mg Capsule PO 09/08/24 15:59 0.4 mg QDAY ASHWIN Administration Topiramate 50 mg 08/09/24 21:00 08/13/24 22:46 Topiramate 25 Mg Tablet PO 09/08/24 20:59 Not Given HS [facility] Plan Andrew Bella is a 64-year-old male with a past medical history of hypertension, hyperlipidemia, CAD, insulin-dependent type 2 diabetes mellitus, CHF, A-fib, depression, and history of seizures who initially presented to ED on 08/09 with dyspnea and productive cough with associated pleuritic chest pain, admitted for management of influenza PNA vs CHF exacerbation. Upgraded on 08/10 for airway protection requiring intubation and extubated and downgraded on 08/16. Nephrology consulted in setting of acute kidney injury and acute tubular necrosis. #Acute kidney injury #Acute tubular necrosis Renal US showed mild bilateral renal parenchymal scar formation without hydronephrosis. Plan of care discussed with the dialysis nurse. Please see dialysis flowsheet for further details. ? Dialysis in a.m. ? Permanent catheter placement today ? Planning for outpatient dialysis ? Avoid nephrotoxic agents ? Renally dose medications #Hyperphosphatemia ? Sevelamer 800 mg PO TID #Acute metabolic encephalopathy, resolved #History of seizures #Shock, resolved #HFpEF (EF 55 to 60%) #Atrial fibrillation #Transaminitis, improving #Hypertension #Hyperlipidemia #CAD #Acute hypoxic/hypercapnic respiratory failure, secondary to #Influenza A pneumonia #COPD #Type 2 diabetes mellitus, insulin-dependent ? Continue management per ICU team ----- Plan discussed with attending physician Dr. Jean-Claude Khan MD PGY-1 Internal Medicine Attending Provider Attestation/Addendum Patient seen and examined with resident physician Dr. Angel. Note reviewed, agree with findings and recommendations. Patient received dialysis yesterday. Next scheduled dialysis will be in AM. Will get permanent dialysis catheter today and outpatient dialysis arrangements to be done.
[2024-08-18] MEDS: AMPICILLIN/SULBAC INJ 3 GM in SODIUM CHLORIDE 0.9% 100 ML IV ×2 (09:12→20:18)
[2024-08-18] MEDS: POTASSIUM CHL 10 mEq IVPB 10 MEQ/100 ML BAG 75 MEQ IV ×2 (09:16→10:34)
--- NOTE | 2024-08-18 10:44 | PD.RESPRO ---
Documentation for date of: 08/18/24 Subjective Subjective Interval history: 08/16/2024: Pt examined at bedside, telemetry reviewed rate controlled but still in afib. Pt is currently undergoing SBT, with plans to extubate today. BUN 51, Cr, 4.5, Mg 2.5 and potassium 3.9, WBC of 10.8, patient had dialysis yesterday with 1.9 L removed. Patient is off pressors, currently rate controlled with Cardizem 30 mg 3 times daily along with midodrine 10 mg tid. Please restart amiodarone drip and oral amio 200 mg bid if HR is high and BP low, however AST in the 140s, ALT in the 400sa and downtrending. No other complaints at this time. Severely voulme overloaded and continue dialysis with goal of atelast 3L /day if BP permits and additional sessions if pt can tolerate. 08/17/2024: Patient examined at bedside today during dialysis. Telemetry reviewed, patient seems to be rate controlled in the 100s, still in A-fib. Patient reports he is doing well, he does not remember what was happening in the ICU. He does not report any shortness of breath or chest pain at this time. He says that he uses CPAP last night. It was discussed with him for the need dialysis at this time. His potassium magnesium today were 3.6 and magnesium 2 respectively. His ALT and AST are 56 and 305 respectively, coming down. His hemoglobin was 10.2 and his white count was 9.7, BUN/creatinine of 65 and 4.6. Patient will need to continue dialysis at this time and need to remove at least 3 L a day if blood pressure admits and if patient needs additional sessions. No other complaints at this time 08/18/2024: Patient examined today at bedside. No overnight events on telemetry seen, rate controlled in the 90s. Patient reports he is doing well. He says that he did not use his CPAP last night because no one turn on the machine for him. He says that he is a bit hungry right now because he has not eaten yet. Has no chest pain or any palpitations or shortness of breath per patient. His BUN/creatinine today is 53 and 5.0 respectively, potassium 3.4, was given 20 mill equivalents IV, phosphorus 5.5, magnesium 2.3. Hemoglobin of 10.2, white count of 9., AST 32, ALT 210, downtrending. Patient to get dialysis catheter today, thus why heparin drip has been held. Patient still continue with Cardizem 30 mg 3 times dailyCan change to cardizem CD 120 mg daily when BP more stable and not on midodrine.Patient reports he is still making urine. No other complaints at this time Exam Vital Signs Temp Pulse Resp BP Pulse Ox O2 Del Method O2 Flow Rate 96.8 F 97 19 126/79 99 Nasal Cannula 4 08/18/24 08:00 08/18/24 08:00 08/18/24 08:00 08/18/24 08:00 08/18/24 08:00 08/18/24 08:00 08/18/24 08:00 FiO2 30 08/17/24 12:26 Narrative Exam General: AAOx3 morbidly obese man, bearded male HEENT: Moist mucous membranes, conjunctiva clear, EOMI,skin tags present Cardiovascular: Pansystolic murmur ausculated upon mitral valve and R sternal border, no carotid bruit appreciated, radial pulses +2 bilat, irregularly irregular, R IJ Pulmonary: Some crackles heard in lung sounds GI: No ascites noted, bowel sounds present, however, abd obesity : No scrotal swelling Extremities: venous stasis noted, unkempt feet, +1 pitting edema bilat, Neuro: AAOx3, no focal motor or sensory deficits Objective Labs 08/18/24 05:31 08/18/24 05:31 Labs: Laboratory Results - last 24 hr 08/17/24 08/17/24 08/18/24 15:08 22:57 05:31 WBC 9.7 RBC 3.74 L Hgb 10.2 L Hct 31.5 L MCV 84 MCH 27.3 MCHC 32.4 RDW Std Deviation 47.9 H Plt Count 234 D Neut % (Auto) 65 Lymph % (Auto) 14 Grimes % (Auto) 12 Eos % (Auto) 2 Baso % (Auto) 0 Neut # (Auto) 6.3 Lymph # (Auto) 1.4 Grimes # (Auto) 1.2 H Eos # (Auto) 0.2 Baso # (Auto) 0.0 Immature Gran # (Auto) 0.67 H Absolute Nucleated RBC 0.03 H Immature Gran % 7 H Nucleated RBC % 0 APTT 66.2 H D 29.3 D 30.8 Sodium 135 L Potassium 3.4 Chloride 94 L Carbon Dioxide 28.5 Anion Gap 13 BUN 53 H Creatinine 5.0 H* D Estim Creat Clear Calc 23.7 L eGFR 12 L* BUN/Creatinine Ratio 11 L Glucose 128 H D Calculated Osmolality 286 Calcium 8.3 Corrected Calcium 8.8 Phosphorus 5.5 H Magnesium 2.3 Total Bilirubin 0.9 AST 32 ALT 210 H Alkaline Phosphatase 38 L Total Protein 6.4 Albumin 3.4 Globulin 3.0 Albumin/Globulin Ratio 1.1 L ABG Interpretation ABG results: 08/10/24 08/10/24 08/10/24 11:34 13:55 16:46 ABG pH 7.21 L 6.97 L* D 6.99 L* ABG pCO2 49 H 95 H* D 78 H* D ABG pO2 60 L 64 L 41 L* D ABG HCO3 20 22 19 L ABG O2 Saturation 86 L 80 L 58 L ABG Base Excess -8 L -12 L -14 L VBG pH VBG pCO2 VBG pO2 VBG Base Excess 08/10/24 08/10/24 08/10/24 19:28 20:48 21:13 ABG pH 7.01 L* Cancelled 7.08 L* ABG pCO2 75 H* Cancelled 69 H ABG pO2 47 L* Cancelled 61 L ABG HCO3 19 L Cancelled 20 ABG O2 Saturation 72 L Cancelled 87 L ABG Base Excess -13 L Cancelled -11 L VBG pH VBG pCO2 VBG pO2 VBG Base Excess 08/11/24 08/11/24 08/11/24 00:34 04:08 14:56 ABG pH 7.14 L* 7.16 L* 7.17 L* ABG pCO2 60 H 54 H 50 H ABG pO2 83 D 114 H D 72 L D ABG HCO3 20 19 L 18 L ABG O2 Saturation 96 99 H 93 ABG Base Excess -10 L -10 L -10 L VBG pH VBG pCO2 VBG pO2 VBG Base Excess 08/11/24 08/11/24 08/12/24 20:05 23:14 02:06 ABG pH 7.20 L 7.25 L 7.27 L ABG pCO2 55 H 49 H 50 H ABG pO2 82 L 93 90 ABG HCO3 21 22 23 ABG O2 Saturation 96 98 98 ABG Base Excess -7 L -6 L -4 L VBG pH VBG pCO2 VBG pO2 VBG Base Excess 08/12/24 08/12/24 08/12/24 06:30 10:13 10:45 ABG pH 7.34 L 7.31 L ABG pCO2 41 42 ABG pO2 177 H D 134 H D ABG HCO3 22 21 ABG O2 Saturation 100 H 100 H ABG Base Excess -4 L -5 L VBG pH 7.30 L VBG pCO2 43 VBG pO2 53 VBG Base Excess -5 L 08/12/24 08/12/24 08/13/24 14:10 19:57 04:27 ABG pH 7.33 L 7.35 7.35 ABG pCO2 40 41 40 ABG pO2 114 H D 103 95 ABG HCO3 21 23 22 ABG O2 Saturation 99 H 99 H 98 ABG Base Excess -5 L -3 -4 L VBG pH VBG pCO2 VBG pO2 VBG Base Excess 08/13/24 08/13/24 08/13/24 20:14 21:45 23:54 ABG pH 7.26 L 7.26 L 7.26 L ABG pCO2 61 H D 60 H 59 H ABG pO2 84 201 H D 151 H D ABG HCO3 27 H 27 H 27 H ABG O2 Saturation 96 100 H 100 H ABG Base Excess -1 -1 -1 VBG pH VBG pCO2 VBG pO2 VBG Base Excess 08/14/24 08/14/24 08/15/24 02:49 18:04 06:30 ABG pH 7.39 D 7.32 L 7.47 H D ABG pCO2 41 D 53 H D 29 L D ABG pO2 292 H D 204 H D 193 H ABG HCO3 25 27 H 22 ABG O2 Saturation 101 H 100 H 99 H ABG Base Excess 0 0 -1 VBG pH VBG pCO2 VBG pO2 VBG Base Excess 08/16/24 04:14 ABG pH 7.33 L D ABG pCO2 50 H D ABG pO2 149 H D ABG HCO3 26 ABG O2 Saturation 100 H ABG Base Excess 0 VBG pH VBG pCO2 VBG pO2 VBG Base Excess Quality Measures Quality Measures VTE prophylaxis Assessment & Plan Assessment Current Active Medications: Generic Name Dose Route Start Last Admin Trade Name Freq PRN Reason Stop Dose Admin Acetaminophen 650 mg 08/11/24 08:37 Acetaminophen 325 Mg Tablet PO 09/10/24 05:56 Q6HR PRN FEVER >101 Aspirin 81 mg 08/11/24 09:00 08/18/24 09:17 Aspirin Ec 81 Mg Tabec PO 09/10/24 08:59 Not Given QDAY ASHWIN Rosuvastatin 20 Mg 0 ea 08/09/24 21:00 08/13/24 22:47 PO 09/08/24 20:59 Not Given HS ASHWIN Dextrose 25 ml 08/09/24 15:31 Dextrose 50%-Water Inj 50 Ml Syringe IV 09/08/24 15:30 Q15MIN PRN BG 50-70 responsive npo pt Dextrose 50 ml 08/09/24 15:31 08/12/24 04:24 Dextrose 50%-Water Inj 50 Ml Syringe IV 09/08/24 15:30 50 ml Q15MIN PRN Administration BG <50 OR BG <70 & pt unresponsive Diltiazem HCl 30 mg 08/15/24 22:00 08/18/24 05:15 Diltiazem 30 Mg Tablet PO 09/14/24 21:59 30 mg TID ASHWIN Administration Glucagon 1 mg 08/09/24 15:31 Glucagon Inj 1 Mg Vial IM Q15MIN PRN BG <70, and no IV access Heparin Sodium (Porcine) 3,000 unit 08/12/24 15:11 08/16/24 18:32 Heparin Sod Inj 1000 Unit/Ml Vial 10 Ml INDWELLCAT 08/26/24 15:10 3,000 unit PRN PRN Administration DIALYSIS Heparin Sodium/Dextrose 25,000 unit in 250 mls @ 17.721 mls/hr 08/12/24 14:30 08/17/24 08:30 Heparin In D5w Ivpb IV 08/26/24 14:29 13 units/kg/hr .Q14H7M ASHWIN 20.943 mls/hr Administration Protocol 11 UNITS/KG/HR Albumin Human 25 gm in 100 mls @ 100 mls/min 08/12/24 15:11 08/15/24 14:00 Albuminar-25 Ivpb IV Infused PRN PRN Infusion DIALYSIS Ampicillin Sodium/Sulbactam 100 mls @ 200 mls/hr 08/17/24 21:00 08/18/24 09:12 Sodium 3 gm/ Sodium Chloride IV 08/20/24 11:59 200 mls/hr Q12HR ASHWIN Administration Protocol Potassium Chloride 10 meq in 100 mls @ 100 mls/hr 08/18/24 10:30 08/18/24 10:34 Kcl Ivpb IV 08/18/24 11:29 Not Given Q1H ASHWIN Insulin Glargine 15 unit 08/12/24 09:30 08/18/24 09:19 Insulin Glargine (Lantus) 5 Unit/0.05 Ml (Per 5 Units) SC 09/11/24 09:29 Not Given QDAY ASHWIN Insulin Human Lispro 0 unit 08/16/24 18:00 08/18/24 07:42 Insulin Lispro (Admelog) 1 Unit/0.01 Ml Unit SC 09/15/24 17:59 Not Given ACHS ASHWIN Protocol Levalbuterol HCl 0.63 mg 08/13/24 19:15 08/18/24 07:22 Levalbuterol Rt 0.63 Mg/3 Ml Nebu INH 09/12/24 19:14 0.63 mg Q6HRRT ASHWIN Administration Midodrine 10 mg 08/14/24 14:00 08/17/24 14:30 Midodrine 5 Mg Tablet PO 09/13/24 13:59 Not Given TID ASHWIN Mirtazapine 45 mg 08/09/24 21:00 08/10/24 21:28 Mirtazapine 15 Mg Tablet PO 09/08/24 20:59 45 mg HS ASHWIN Administration Ondansetron HCl 4 mg 08/09/24 15:20 Ondansetron Inj 2 Mg/Ml Inj 2 Ml IV 09/08/24 15:19 Q6H PRN NAUSEA OR VOMITING Protocol Paroxetine HCl 20 mg 08/14/24 21:00 Paroxetine Hcl 10 Mg Tablet PO 09/13/24 20:59 HS ASHWIN Pharmacy Consult 1 each 08/11/24 20:59 Pharmacy Renal Dose Adjustment 1 Ea XX 09/10/24 20:58 PRN PRN CONSULT Risperidone 3 mg 08/14/24 21:00 Risperidone 1 Mg Tablet PO 09/13/24 20:59 HS ASHWIN Sevelamer Carbonate 800 mg 08/17/24 08:00 08/18/24 09:10 Sevelamer Carbonate 800 Mg Tablet PO 09/16/24 07:59 Not Given TIDWM ASHWIN Tamsulosin HCl 0.4 mg 08/09/24 16:00 08/18/24 09:17 Tamsulosin Hcl 0.4 Mg Capsule PO 09/08/24 15:59 Not Given QDAY ASHWIN Topiramate 50 mg 08/09/24 21:00 08/13/24 22:46 Topiramate 25 Mg Tablet PO 09/08/24 20:59 Not Given HS ASHWIN Plan Assessment Andrew is a 64 y/o male with past medical history of hypertension, hyperlipidemia, CAD, type 2 diabetes insulin-dependent, CHF, A-fib (on Eliquis 5mg twice daily), history of seizures who is currently admitted into the ICU for acute hypoxic hypercarbic respiratory failure requiring intubation and likely septic shock secondary to influenza A. #Afib with RVR, on home Eliquis [id number] HAS-BLED: 1 AC:Has home Eliquis Plan: ?We recommend continue with Cardizem 30 mg every 6 hours. Can change to cardizem CD 120 mg daily when BP more stable and not on midodrine. ?Please restart amiodarone drip and oral amio 200 mg bid if HR is high and BP low, however AST in the 80, ALT in the 300s and downtrending. ?Heparin drip held for dialysis catheter insertion ?Keep potassium between 4 and 5 and magnesium greater than 2.0 at all times. ?Recommend to continue to monitor on telemetry ?Continue dialysis with goal of atleast 3L /day if BP permits and additional sessions if pt can tolerate ?Continue CPAP every night #Septic shock secondary to, (improving) #Influenza A #? Superimposed bacterial infection Influenza A positive Pt currently has A line at this time Blood cultures NG2D, sputum and MRSA negative Off pressors Patient has finished Tamiflu Plan: -Continue Unasyn #Hx of CAD #Acute exacerbation of HFpEF with diastolic dysfunction #Mild aortic stenosis #NSTEMI type II, likely related to demand ischemia , resolved Echo shows EF 55-60%, normal LV, mild LVH, dilated RV, IVC dilated, AV stenosis Troponins have peaked No urine output past 24 hours, BUN/Cr 6 and 5.6 respectively Patient should get at least 3 L removed each session and additional sessions if blood pressure tolerates As patient still able to make urine, we recommend diuresis at some point Plan: -Patient is still fluid overloaded significantly, nephrology has been on board and continue dialysis. ?We recommend diuresis with Bumex if pt is able to produce urine ? Dialysis catheter insertion today #IDDM #Hyperlipidemia #Hypertension Total Cholesterol: 83 LDL:30 A1c 7.1 Plan: Consider resuming home blood pressure medicines at some point as blood pressure tolerates Resumed home Rosuvastatin Primary team to handle BG #Acute hypoxic hypercarbic respiratory failure, improving #Respiratory acidosis, improving #Hx of COPD #OHS Plan: -CPAP at night -Pulmonary hygiene -Chest physiotherapy -Continue levalbuterol #ESRD, on HD #ARIANA, prerenal #Shock liver #History of depression #History of seizures #Normocytic Anemia #Mild Hyponatremia Hypo-osmolar, Hypervolemic Above managed by primary hospitalist team Patient seen and care discussed with my attending physician, Dr. Karrie Merritt, PGY-1 Attending Provider Attestation/Addendum I reviewed the resident Dr. Gaming consultation progress note and agree with the resident findings and plan in the note above and have also edited the documentation to reflect my findings and plan. Nacho Yoon M.D. Interventional Cardiology
--- NOTE | 2024-08-18 11:14 | PC.SS ---
Addendum entered by Coreen Graves 08/18/24 14:52: SS was contacted by Soniya from [facility] and she informed SS they will be able to accept patient and will start authorization. Soniya informed SS [facility] in [place] will schedule patient for , , Sat from 10AM-2PM. Patient is pending auth at this time. Addendum entered by Coreen Graves 08/18/24 12:16: SS contacted [facility] to check status on transportation coverage. [employer] reported patient does not have transportation coverage. Original Note: SS follow up note; Soniya from [facility] informed SS that patient does not have Transportation coverage and they might not be able to accept patient due to transportation issues. SS contacted [facility] [place] to see if they are able to schedule patient MWF after 8AM and before 11:30 AM, per Soniya from [facility] they are only able to accommodate patient during that time. SS is waiting for a call back from [facility] in [place].
[2024-08-18 12:14] LABS: Hepatitis A Antibody IgM Non Reactive (Non React); Hepatitis B Core Antibody IgM Non Reactive (Non React); Hepatitis B Surface Antigen Non Reactive (Non React); Hepatitis C Antibody Non Reactive (Non React)
--- NOTE | 2024-08-18 13:18 | ESPR_ITS ---
<Statement entered by Daniel Cox MD - 08/18/24 14:35> I saw and examined the patient, and I agree with current management stated by Dr Herman Kirkland MD,PGY1. Plan of care was discussed with the attending physician and resident physician. Disclaimer: Despite multiple revisions, due to the dictation software being used, the document bellow may not be free of grammatical errors including phonetic/typographic errors. However, this does not deter from our commitment to providing health care in the patient's best interest in mind. Dr. Brooke MD, PGY 2 Documentation for date of: 08/18/24 Subjective Subjective Interval history: No overnight events. Patient seen and examined at bedside. Patient resting comfortably, on room air. Denies shortness of breath, chest pain, fevers or chills. States leg pain/swelling feels improved. Tunneled cath to be placed today. Arranging outpatient dialysis. Exam Vital Signs Temp Pulse Resp BP Pulse Ox O2 Del Method O2 Flow Rate 97.8 F 104 H 16 135/73 H 97 Nasal Cannula 1 08/18/24 13:10 08/18/24 13:10 08/18/24 13:10 08/18/24 13:10 08/18/24 13:10 08/18/24 13:10 08/18/24 13:10 FiO2 30 08/17/24 12:26 Narrative Exam General: AAOx3 morbidly obese man, bearded male HEENT: Moist mucous membranes, conjunctiva clear, EOMI,skin tags present Cardiovascular: Pansystolic murmur ausculated upon mitral valve and R sternal border, no carotid bruit appreciated, radial pulses +2 bilat, irregularly irregular but regular rate Pulmonary: Diffuse expiratory wheezing. Poor lung sounds due to body habitus. GI: No ascites noted, bowel sounds present, no tenderness Extremities: venous stasis with stasis dermatitis, unkempt feet, +3 pitting edema bilateral lower extremity (improved) Neuro: AAOx3, no focal motor or sensory deficits Objective Labs 08/19/24 05:09 08/18/24 05:31 Labs: Laboratory Results - last 24 hr 08/17/24 08/17/24 08/18/24 15:08 22:57 05:31 WBC 9.7 RBC 3.74 L Hgb 10.2 L Hct 31.5 L MCV 84 MCH 27.3 MCHC 32.4 RDW Std Deviation 47.9 H Plt Count 234 D Neut % (Auto) 65 Lymph % (Auto) 14 [place] % (Auto) 12 Eos % (Auto) 2 Baso % (Auto) 0 Neut # (Auto) 6.3 Lymph # (Auto) 1.4 [place] # (Auto) 1.2 H Eos # (Auto) 0.2 Baso # (Auto) 0.0 Immature Gran # (Auto) 0.67 H Absolute Nucleated RBC 0.03 H Immature Gran % 7 H Nucleated RBC % 0 APTT 66.2 H D 29.3 D 30.8 Sodium 135 L Potassium 3.4 Chloride 94 L Carbon Dioxide 28.5 Anion Gap 13 BUN 53 H Creatinine 5.0 H* D Estim Creat Clear Calc 23.7 L eGFR 12 L* BUN/Creatinine Ratio 11 L Glucose 128 H D Calculated Osmolality 286 Calcium 8.3 Corrected Calcium 8.8 Phosphorus 5.5 H Magnesium 2.3 Total Bilirubin 0.9 AST 32 ALT 210 H Alkaline Phosphatase 38 L Total Protein 6.4 Albumin 3.4 Globulin 3.0 Albumin/Globulin Ratio 1.1 L Hepatitis A IgM Ab Non Reactive Hep Bs Antigen Non Reactive Hep B Core IgM Ab Non Reactive Hepatitis C Antibody Non Reactive ABG Interpretation ABG results: 08/10/24 08/10/24 08/10/24 11:34 13:55 16:46 ABG pH 7.21 L 6.97 L* D 6.99 L* ABG pCO2 49 H 95 H* D 78 H* D ABG pO2 60 L 64 L 41 L* D ABG HCO3 20 22 19 L ABG O2 Saturation 86 L 80 L 58 L ABG Base Excess -8 L -12 L -14 L VBG pH VBG pCO2 VBG pO2 VBG Base Excess 08/10/24 08/10/24 08/10/24 19:28 20:48 21:13 ABG pH 7.01 L* Cancelled 7.08 L* ABG pCO2 75 H* Cancelled 69 H ABG pO2 47 L* Cancelled 61 L ABG HCO3 19 L Cancelled 20 ABG O2 Saturation 72 L Cancelled 87 L ABG Base Excess -13 L Cancelled -11 L VBG pH VBG pCO2 VBG pO2 VBG Base Excess 08/11/24 08/11/24 08/11/24 00:34 04:08 14:56 ABG pH 7.14 L* 7.16 L* 7.17 L* ABG pCO2 60 H 54 H 50 H ABG pO2 83 D 114 H D 72 L D ABG HCO3 20 19 L 18 L ABG O2 Saturation 96 99 H 93 ABG Base Excess -10 L -10 L -10 L VBG pH VBG pCO2 VBG pO2 VBG Base Excess 08/11/24 08/11/24 08/12/24 20:05 23:14 02:06 ABG pH 7.20 L 7.25 L 7.27 L ABG pCO2 55 H 49 H 50 H ABG pO2 82 L 93 90 ABG HCO3 21 22 23 ABG O2 Saturation 96 98 98 ABG Base Excess -7 L -6 L -4 L VBG pH VBG pCO2 VBG pO2 VBG Base Excess 08/12/24 08/12/24 08/12/24 06:30 10:13 10:45 ABG pH 7.34 L 7.31 L ABG pCO2 41 42 ABG pO2 177 H D 134 H D ABG HCO3 22 21 ABG O2 Saturation 100 H 100 H ABG Base Excess -4 L -5 L VBG pH 7.30 L VBG pCO2 43 VBG pO2 53 VBG Base Excess -5 L 08/12/24 08/12/24 08/13/24 14:10 19:57 04:27 ABG pH 7.33 L 7.35 7.35 ABG pCO2 40 41 40 ABG pO2 114 H D 103 95 ABG HCO3 21 23 22 ABG O2 Saturation 99 H 99 H 98 ABG Base Excess -5 L -3 -4 L VBG pH VBG pCO2 VBG pO2 VBG Base Excess 08/13/24 08/13/24 08/13/24 20:14 21:45 23:54 ABG pH 7.26 L 7.26 L 7.26 L ABG pCO2 61 H D 60 H 59 H ABG pO2 84 201 H D 151 H D ABG HCO3 27 H 27 H 27 H ABG O2 Saturation 96 100 H 100 H ABG Base Excess -1 -1 -1 VBG pH VBG pCO2 VBG pO2 VBG Base Excess 08/14/24 08/14/24 08/15/24 02:49 18:04 06:30 ABG pH 7.39 D 7.32 L 7.47 H D ABG pCO2 41 D 53 H D 29 L D ABG pO2 292 H D 204 H D 193 H ABG HCO3 25 27 H 22 ABG O2 Saturation 101 H 100 H 99 H ABG Base Excess 0 0 -1 VBG pH VBG pCO2 VBG pO2 VBG Base Excess 08/16/24 04:14 ABG pH 7.33 L D ABG pCO2 50 H D ABG pO2 149 H D ABG HCO3 26 ABG O2 Saturation 100 H ABG Base Excess 0 VBG pH VBG pCO2 VBG pO2 VBG Base Excess Quality Measures Quality Measures VTE prophylaxis Assessment & Plan Assessment Current Active Medications: Generic Name Dose Route Start Last Admin Trade Name Freq PRN Reason Stop Dose Admin Acetaminophen 650 mg 08/11/24 08:37 Acetaminophen 325 Mg Tablet PO 09/10/24 05:56 Q6HR PRN FEVER >101 Aspirin 81 mg 08/11/24 09:00 08/18/24 09:17 Aspirin Ec 81 Mg Tabec PO 09/10/24 08:59 Not Given QDAY ASHWIN Rosuvastatin 20 Mg 0 ea 08/09/24 21:00 08/13/24 22:47 PO 09/08/24 20:59 Not Given HS ASHWIN Dextrose 25 ml 08/09/24 15:31 Dextrose 50%-Water Inj 50 Ml Syringe IV 09/08/24 15:30 Q15MIN PRN BG 50-70 responsive npo pt Dextrose 50 ml 08/09/24 15:31 08/12/24 04:24 Dextrose 50%-Water Inj 50 Ml Syringe IV 09/08/24 15:30 50 ml Q15MIN PRN Administration BG <50 OR BG <70 & pt unresponsive Diltiazem HCl 30 mg 08/15/24 22:00 08/18/24 05:15 Diltiazem 30 Mg Tablet PO 09/14/24 21:59 30 mg TID ASHWIN Administration Glucagon 1 mg 08/09/24 15:31 Glucagon Inj 1 Mg Vial IM Q15MIN PRN BG <70, and no IV access Heparin Sodium (Porcine) 3,000 unit 08/12/24 15:11 08/16/24 18:32 Heparin Sod Inj 1000 Unit/Ml Vial 10 Ml INDWELLCAT 08/26/24 15:10 3,000 unit PRN PRN Administration DIALYSIS Heparin Sodium/Dextrose 25,000 unit in 250 mls @ 17.721 mls/hr 08/12/24 14:30 08/17/24 08:30 Heparin In D5w Ivpb IV 08/26/24 14:29 13 units/kg/hr .Q14H7M ASHWIN 20.943 mls/hr Administration Protocol 11 UNITS/KG/HR Albumin Human 25 gm in 100 mls @ 100 mls/min 08/12/24 15:11 08/15/24 14:00 Albuminar-25 Ivpb IV Infused PRN PRN Infusion DIALYSIS Ampicillin Sodium/Sulbactam 100 mls @ 200 mls/hr 08/17/24 21:00 08/18/24 09:12 Sodium 3 gm/ Sodium Chloride IV 08/20/24 11:59 200 mls/hr Q12HR ASHWIN Administration Protocol Insulin Glargine 15 unit 08/12/24 09:30 08/18/24 09:19 Insulin Glargine (Lantus) 5 Unit/0.05 Ml (Per 5 Units) SC 09/11/24 09:29 Not Given QDAY [facility] Insulin Human Lispro 0 unit 08/16/24 18:00 08/18/24 11:10 Insulin Lispro (Admelog) 1 Unit/0.01 Ml Unit SC 09/15/24 17:59 Not Given ACHS [facility] Protocol Levalbuterol HCl 0.63 mg 08/13/24 19:15 08/18/24 12:18 Levalbuterol Rt 0.63 Mg/3 Ml Nebu INH 09/12/24 19:14 0.63 mg Q6HRRT ASHWIN Administration Midodrine 10 mg 08/14/24 14:00 08/17/24 14:30 Midodrine 5 Mg Tablet PO 09/13/24 13:59 Not Given TID ASHWIN Mirtazapine 45 mg 08/09/24 21:00 08/10/24 21:28 Mirtazapine 15 Mg Tablet PO 09/08/24 20:59 45 mg HS ASHWIN Administration Ondansetron HCl 4 mg 08/09/24 15:20 Ondansetron Inj 2 Mg/Ml Inj 2 Ml IV 09/08/24 15:19 Q6H PRN NAUSEA OR VOMITING Protocol Paroxetine HCl 20 mg 08/14/24 21:00 Paroxetine Hcl 10 Mg Tablet PO 09/13/24 20:59 HS ASHWIN Pharmacy Consult 1 each 08/11/24 20:59 Pharmacy Renal Dose Adjustment 1 Ea XX 09/10/24 20:58 PRN PRN CONSULT Risperidone 3 mg 08/14/24 21:00 Risperidone 1 Mg Tablet PO 09/13/24 20:59 [facility] Sevelamer Carbonate 800 mg 08/17/24 08:00 08/18/24 11:11 Sevelamer Carbonate 800 Mg Tablet PO 09/16/24 07:59 Not Given TIDWM ASHWIN Tamsulosin HCl 0.4 mg 08/09/24 16:00 08/18/24 09:17 Tamsulosin Hcl 0.4 Mg Capsule PO 09/08/24 15:59 Not Given QDAY [facility] Topiramate 50 mg 08/09/24 21:00 08/13/24 22:46 Topiramate 25 Mg Tablet PO 09/08/24 20:59 Not Given HS [facility] Plan 64-year-old male with past medical history of hypertension, hyperlipidemia, coronary artery disease, type diabetes mellitus insulin-dependent, CHF, atrial fibrillation, history of seizures who was admitted to [facility] for management of CHF exacerbation and influenza A. Patient upgraded to ICU after emergent intubation post worsening of mentation and bedside aspiration with inability to protect airway. Successfully extubated, downgraded to floors for further management. #Acute renal failure secondary to ischemic ATN #Fluid overload Treatment: -Continue inpatient dialysis -Continue midodrine 10 TID -Will monitor renal function -Consulted pharmacy to dose medications renally -Avoid nephrotoxic agents -Savelamer -Plan for tunneled cath placement today, outpatient dialysis #Acute hypoxic/hypercapnic respiratory failure, resolved #Influenza A #Aspiration pneumonia #COPD #Suspicion of obesity hypoventilation syndrome Patient was given Zosyn(08/10-08/13) , azithromycin, (08/10-08/12) linezolid (08/11-08/13) vancomycin (08/10-08/11), Tamiflu (08/09-08/14) Treatment: -DuoNeb every 6 hours -Continue midodrine 10 TID -BiPAP every night as needed -Patient is a chronic CO2 retainer, correct bicarb as needed -Continue Unasyn (08/13-) #Atrial fibrillation with rapid ventricular response Treatment: -Continue Cardizem 30 p.o. 3 times daily -Will consider digoxin for rate control if needed -Discontinued amiodarone due to concern of hepatotoxicity, will monitor heart rate -Cardiology following -Heparin drip held for tunneled dialysis cath placement, will start Xarelto #Congestive heart failure, HFpEF EF 55 to 60% # Mild aortic stenosis, mitral stenosis Patient history as stated. Cardiology on board. -Monitor urine output -Continue scheduled dialysis as per nephro recommendations #History of seizures Patient has a past medical history of seizures, last seizure was several years ago and patient cannot recall but has been stable. Home medication topiramate 50 mg HS, will continue to hold. # Septic shock secondary to aspiration pneumonia, resolved Patient initially admitted for septic shock, upgraded to ICU. Patient was extubated and downgraded to floors. #Hypertension #Hyperlipidemia #History of coronary artery disease Has a past medical history of hyperlipidemia with a previous history of NM approximately 5 years ago. Patient takes rosuvastatin 20 mg at bedtime, holding rosuvastatin due to hepatitis Patient has a past medical history of hypertension on losartan, held due acute kidney injury # Hepatitis 2/2 shock liver versus drug toxicity versus fluid overload Will continue to maintain mean arterial pressure >65 Discontinued amiodarone, topiramate Downtrending -Follow LFTs in AM #Type 2 diabetes mellitus, insulin-dependent # Hyperglycemia Patient has a past medical history of diabetes mellitus type 2 Home medication include Lantus 12 units, Januvia (Sitagliptin), Jardiance (Empagliflozin), and Ozempic. Diagnostic workup: Hemoglobin A1c 7.1 -Started on Lantus 15 units daily, sliding scale lispro #Influenza A Influenza positive, completed course of Tamiflu. #Acute metabolic encephalopathy, resolved Multifactorial: Acute hypoxic/hypercapnic respiratory failure, underlying acidosis, underlying sepsis, polypharmacy -Resume patient's home Remeron, Paxil DVT prophylaxis: Xarelto GI prophylaxis: None Diet: Carb consistent low, renal, fluid restriction Lines: Femoral line, peripheral IV Code status: Full code Plan of care discussed with senior resident Dr. Cox PGY?[address] Brennan. Xu Downing MD PGY-1 Attending Provider Attestation/Addendum I have examined the patient, reviewed labs and imaging findings, discussed the case with the resident(s), and reviewed entered orders. I agree with the plan of care as outlined in this note, with these additional summaries/recommendations: Patient seen at bedside. No acute overnight events. Patient reports she feels better today. Discussed that we will go for tunneled dialysis catheter for outpatient hemodialysis. Case management notified to arrange chair time. Patient reports he has not gotten out of bed since hospitalization we will obtain PT consult. Continue Unasyn for aspiration pneumonia. Continue diltiazem 30 mg p.o. 3 times daily for new onset atrial fibrillation. Heparin drip on hold for TDC and will discuss with cardiology about initiating Xarelto for elevated [id number] score. Blood pressure stable and holding midodrine. Resume home paroxetine and risperidone. Breathing treatments as needed for COPD. Repeat hematology and chemistry panel in AM. Dr. Brennan
[2024-08-18] MEDS: HEPARIN SOD INJ 1000 UNIT/ML VIAL 4100 UNIT INDWELLCAT (14:29)
[2024-08-18] MEDS: fentaNYL CIT INJ 50 mCg/ML AMP 2ML 75 MCG IVP (14:29)
[2024-08-18] MEDS: HEPARIN SOD LOCK SYR 100 UNIT/ML 500 UNIT STFIELD (14:29)
[2024-08-18] MEDS: LIDOCAINE INJ PF 1% 30 ML VIAL 11 ML EPID (14:29)
[2024-08-18 14:41] LABS: HIV (1&2) Antibody Rapid Non-Reactive
--- NOTE | 2024-08-18 15:15 | PC.NURSE ---
PATIENT CAME BACK FROM IR STATUS POST TUNNEL DIALYSIS CATHETER INSERTION. DRESSING TO RIGHT CHEST IS CLEAN, DRY AND INTACT. ALSO DRESSING TO RIGHT GROIN IS CLEAN, DRY, AND INTACT, WITH FEMORAL PULSE PALPABLE. NO HEMATOMA NOTED AT SITE. PATIENT DENIES PAIN. NO S/S OF DISTRESS.
[2024-08-18] MEDS: INSULIN LISPRO (AdmeLOG) 1 UNIT/0.01 ML UNIT SC ×2 (16:29→20:34)
[2024-08-18] MEDS: SEVELAMER CARBONATE 800 MG TABLET PO (16:31)
[2024-08-18] MEDS: MIRTAZAPINE 15 MG TABLET 45 MG PO (20:18)
[2024-08-18] MEDS: risperiDONE 1 MG TABLET 3 MG PO (20:20)
[2024-08-18] MEDS: PARoxetine HCL 10 MG TABLET 20 MG PO (20:20)
[2024-08-19] VITALS (27 sets, daily range): BP systolic 106–165; BP diastolic 47–91; PULSE 75–105; RESP 15–21; TEMP 35.9–36.4; O2SAT 98–100; BMI 44.6
[2024-08-19] MEDS: LEVALBUTEROL RT 0.63 MG/3 ML NEBU INH ×3 (01:45→13:31)
--- NOTE | 2024-08-19 04:26 | PC.NURSE ---
patient runs 9 PVC's heart rate of 117 patient is A/O. Doctors are on the floor made them aware and said okay.
[2024-08-19] MEDS: DILTIAZEM 30 MG TABLET PO ×3 (05:24→21:03)
[2024-08-19 06:10] LABS: Basophils % (Auto) 0 % (0-2.5); Eosinophils # (Auto) 0.2 Thou/mm3 (0.0-0.5); Eosinophils % (Auto) 2 % (0-10); Hematocrit 32.5 % (41.0-53.0); Hemoglobin 10.4 g/dL (13.5-16.0); Immature Granulocytes % (Auto) 6 % (0-0); Immature Granulocytes Auto 0.49 Thou/mm3 (0.00-0.00); Lymphocytes # (Auto) 1.3 Thou/mm3 (1.0-4.8); Lymphocytes % (Auto) 15 % (10-50); Mean Corpuscular Volume 84 fL (80-100); Monocytes % (Auto) 11 % (0-12); Neutrophils # (Auto) 5.6 Thou/mm3 (1.8-7.7); Neutrophils % (Auto) 66 % (37-80); Nucleated Red Blood Cell % 0 /100 WBC (0); Platelet Count 230 Thou/mm3 (140-440); RDW Standard Deviation 48.5 fL (35.1-43.9); Red Blood Count 3.85 Miln/mm3 (4.50-5.90); White Blood Count 8.5 Thou/mm3 (3.8-10.6)
[2024-08-19] MEDS: INSULIN LISPRO (AdmeLOG) 1 UNIT/0.01 ML UNIT SC ×3 (07:46→21:00)
--- NOTE | 2024-08-19 08:15 | PD.RESPRO ---
Documentation for date of: 08/19/24 Subjective Subjective Interval history: 08/16/2024: Pt examined at bedside, telemetry reviewed rate controlled but still in afib. Pt is currently undergoing SBT, with plans to extubate today. BUN 51, Cr, 4.5, Mg 2.5 and potassium 3.9, WBC of 10.8, patient had dialysis yesterday with 1.9 L removed. Patient is off pressors, currently rate controlled with Cardizem 30 mg 3 times daily along with midodrine 10 mg tid. Please restart amiodarone drip and oral amio 200 mg bid if HR is high and BP low, however AST in the 140s, ALT in the 400sa and downtrending. No other complaints at this time. Severely voulme overloaded and continue dialysis with goal of atelast 3L /day if BP permits and additional sessions if pt can tolerate. 08/17/2024: Patient examined at bedside today during dialysis. Telemetry reviewed, patient seems to be rate controlled in the 100s, still in A-fib. Patient reports he is doing well, he does not remember what was happening in the ICU. He does not report any shortness of breath or chest pain at this time. He says that he uses CPAP last night. It was discussed with him for the need dialysis at this time. His potassium magnesium today were 3.6 and magnesium 2 respectively. His ALT and AST are 56 and 305 respectively, coming down. His hemoglobin was 10.2 and his white count was 9.7, BUN/creatinine of 65 and 4.6. Patient will need to continue dialysis at this time and need to remove at least 3 L a day if blood pressure admits and if patient needs additional sessions. No other complaints at this time 08/18/2024: Patient examined today at bedside. No overnight events on telemetry seen, rate controlled in the 90s. Patient reports he is doing well. He says that he did not use his CPAP last night because no one turn on the machine for him. He says that he is a bit hungry right now because he has not eaten yet. Has no chest pain or any palpitations or shortness of breath per patient. His BUN/creatinine today is 53 and 5.0 respectively, potassium 3.4, was given 20 mill equivalents IV, phosphorus 5.5, magnesium 2.3. Hemoglobin of 10.2, white count of 9., AST 32, ALT 210, downtrending. Patient to get dialysis catheter today, thus why heparin drip has been held. Patient still continue with Cardizem 30 mg 3 times dailyCan change to cardizem CD 120 mg daily when BP more stable and not on midodrine.Patient reports he is still making urine. No other complaints at this time. 08/19/2024: Patient examined at bedside today. No overnight events on telemetry, patient remains to be rate controlled in the 80s and 90s. Patient reports he is doing well, currently in dialysis chair. No overnight complaints. Patient's white blood cell count 8.5, hemoglobin 10.4. Patient's potassium 3.1 today we will give 40 mill equivalents oral, magnesium 2.1, phosphorus 5.2, BUN/creatinine 52 and 4.9 respectively. Patient seems to be controlled with Cardizem 30 mg 3 times daily, primary team to resume Xarelto 20 mg. Patient says he still makes urine. No other complaints this time Exam Vital Signs Temp Pulse Resp BP Pulse Ox O2 Del Method O2 Flow Rate 97.5 F 86 18 130/63 99 Nasal Cannula 2 08/19/24 08:00 08/19/24 08:05 08/19/24 08:00 08/19/24 08:05 08/19/24 08:00 08/19/24 04:00 08/19/24 07:15 FiO2 30 08/17/24 12:26 Narrative Exam General: AAOx3 morbidly obese man, bearded male, in diaylsis chair HEENT: Moist mucous membranes, conjunctiva clear, EOMI,skin tags present Cardiovascular: Pansystolic murmur ausculated upon mitral valve and R sternal border, no carotid bruit appreciated, radial pulses +2 bilat, irregularly irregular, R IJ Pulmonary: Some crackles heard in lung sounds GI: No ascites noted, bowel sounds present, however, abd obesity : No scrotal swelling Extremities: venous stasis noted, unkempt feet, +1 pitting edema bilat, Neuro: AAOx3, no focal motor or sensory deficits Objective Labs 08/19/24 05:09 08/19/24 08:45 Labs: Laboratory Results - last 24 hr 08/18/24 08/19/24 05:31 05:09 WBC 8.5 RBC 3.85 L Hgb 10.4 L Hct 32.5 L MCV 84 MCH 27.0 MCHC 32.0 RDW Std Deviation 48.5 H Plt Count 230 Neut % (Auto) 66 Lymph % (Auto) 15 [place] % (Auto) 11 Eos % (Auto) 2 Baso % (Auto) 0 Neut # (Auto) 5.6 Lymph # (Auto) 1.3 [place] # (Auto) 1.0 H Eos # (Auto) 0.2 Baso # (Auto) 0.0 Immature Gran # (Auto) 0.49 H Absolute Nucleated RBC 0.00 Immature Gran % 6 H Nucleated RBC % 0 Hepatitis A IgM Ab Non Reactive Hep Bs Antigen Non Reactive Hep B Core IgM Ab Non Reactive Hepatitis C Antibody Non Reactive HIV 1&2 Antibody Rapid Non-Reactive ABG Interpretation ABG results: 08/10/24 08/10/24 08/10/24 11:34 13:55 16:46 ABG pH 7.21 L 6.97 L* D 6.99 L* ABG pCO2 49 H 95 H* D 78 H* D ABG pO2 60 L 64 L 41 L* D ABG HCO3 20 22 19 L ABG O2 Saturation 86 L 80 L 58 L ABG Base Excess -8 L -12 L -14 L VBG pH VBG pCO2 VBG pO2 VBG Base Excess 08/10/24 08/10/24 08/10/24 19:28 20:48 21:13 ABG pH 7.01 L* Cancelled 7.08 L* ABG pCO2 75 H* Cancelled 69 H ABG pO2 47 L* Cancelled 61 L ABG HCO3 19 L Cancelled 20 ABG O2 Saturation 72 L Cancelled 87 L ABG Base Excess -13 L Cancelled -11 L VBG pH VBG pCO2 VBG pO2 VBG Base Excess 08/11/24 08/11/24 08/11/24 00:34 04:08 14:56 ABG pH 7.14 L* 7.16 L* 7.17 L* ABG pCO2 60 H 54 H 50 H ABG pO2 83 D 114 H D 72 L D ABG HCO3 20 19 L 18 L ABG O2 Saturation 96 99 H 93 ABG Base Excess -10 L -10 L -10 L VBG pH VBG pCO2 VBG pO2 VBG Base Excess 08/11/24 08/11/24 08/12/24 20:05 23:14 02:06 ABG pH 7.20 L 7.25 L 7.27 L ABG pCO2 55 H 49 H 50 H ABG pO2 82 L 93 90 ABG HCO3 21 22 23 ABG O2 Saturation 96 98 98 ABG Base Excess -7 L -6 L -4 L VBG pH VBG pCO2 VBG pO2 VBG Base Excess 08/12/24 08/12/24 08/12/24 06:30 10:13 10:45 ABG pH 7.34 L 7.31 L ABG pCO2 41 42 ABG pO2 177 H D 134 H D ABG HCO3 22 21 ABG O2 Saturation 100 H 100 H ABG Base Excess -4 L -5 L VBG pH 7.30 L VBG pCO2 43 VBG pO2 53 VBG Base Excess -5 L 08/12/24 08/12/24 08/13/24 14:10 19:57 04:27 ABG pH 7.33 L 7.35 7.35 ABG pCO2 40 41 40 ABG pO2 114 H D 103 95 ABG HCO3 21 23 22 ABG O2 Saturation 99 H 99 H 98 ABG Base Excess -5 L -3 -4 L VBG pH VBG pCO2 VBG pO2 VBG Base Excess 08/13/24 08/13/24 08/13/24 20:14 21:45 23:54 ABG pH 7.26 L 7.26 L 7.26 L ABG pCO2 61 H D 60 H 59 H ABG pO2 84 201 H D 151 H D ABG HCO3 27 H 27 H 27 H ABG O2 Saturation 96 100 H 100 H ABG Base Excess -1 -1 -1 VBG pH VBG pCO2 VBG pO2 VBG Base Excess 08/14/24 08/14/24 08/15/24 02:49 18:04 06:30 ABG pH 7.39 D 7.32 L 7.47 H D ABG pCO2 41 D 53 H D 29 L D ABG pO2 292 H D 204 H D 193 H ABG HCO3 25 27 H 22 ABG O2 Saturation 101 H 100 H 99 H ABG Base Excess 0 0 -1 VBG pH VBG pCO2 VBG pO2 VBG Base Excess 08/16/24 04:14 ABG pH 7.33 L D ABG pCO2 50 H D ABG pO2 149 H D ABG HCO3 26 ABG O2 Saturation 100 H ABG Base Excess 0 VBG pH VBG pCO2 VBG pO2 VBG Base Excess Quality Measures Quality Measures VTE prophylaxis Assessment & Plan Assessment Current Active Medications: Generic Name Dose Route Start Last Admin Trade Name Camiloq PRN Reason Stop Dose Admin Acetaminophen 650 mg 08/11/24 08:37 Acetaminophen 325 Mg Tablet PO 09/10/24 05:56 Q6HR PRN FEVER >101 Aspirin 81 mg 08/11/24 09:00 08/18/24 09:17 Aspirin Ec 81 Mg Tabec PO 09/10/24 08:59 Not Given QDAY ASHWIN Rosuvastatin 20 Mg 0 ea 08/09/24 21:00 08/13/24 22:47 PO 09/08/24 20:59 Not Given HS ASHWIN Dextrose 25 ml 08/09/24 15:31 Dextrose 50%-Water Inj 50 Ml Syringe IV 09/08/24 15:30 Q15MIN PRN BG 50-70 responsive npo pt Dextrose 50 ml 08/09/24 15:31 08/12/24 04:24 Dextrose 50%-Water Inj 50 Ml Syringe IV 09/08/24 15:30 50 ml Q15MIN PRN Administration BG <50 OR BG <70 & pt unresponsive Diltiazem HCl 30 mg 08/15/24 22:00 08/19/24 05:24 Diltiazem 30 Mg Tablet PO 09/14/24 21:59 30 mg TID ASHWIN Administration Glucagon 1 mg 08/09/24 15:31 Glucagon Inj 1 Mg Vial IM Q15MIN PRN BG <70, and no IV access Heparin Sodium (Porcine) 3,000 unit 08/12/24 15:11 08/16/24 18:32 Heparin Sod Inj 1000 Unit/Ml Vial 10 Ml INDWELLCAT 08/26/24 15:10 3,000 unit PRN PRN Administration DIALYSIS Albumin Human 25 gm in 100 mls @ 100 mls/min 08/12/24 15:11 08/15/24 14:00 Albuminar-25 Ivpb IV Infused PRN PRN Infusion DIALYSIS Ampicillin Sodium/Sulbactam 100 mls @ 200 mls/hr 08/17/24 21:00 08/18/24 20:18 Sodium 3 gm/ Sodium Chloride IV 08/20/24 11:59 200 mls/hr Q12HR ASHWIN Administration Protocol Insulin Glargine 18 unit 08/19/24 09:00 Insulin Glargine (Lantus) 5 Unit/0.05 Ml (Per 5 Units) SC 09/18/24 08:59 QDAY ASHWIN Insulin Human Lispro 0 unit 08/16/24 18:00 08/19/24 07:46 Insulin Lispro (Admelog) 1 Unit/0.01 Ml Unit SC 09/15/24 17:59 6 unit ACHS ASHWIN Administration Protocol Levalbuterol HCl 0.63 mg 08/13/24 19:15 08/19/24 07:15 Levalbuterol Rt 0.63 Mg/3 Ml Nebu INH 09/12/24 19:14 0.63 mg Q6HRRT ASHWIN Administration Midodrine 10 mg 08/14/24 14:00 08/17/24 14:30 Midodrine 5 Mg Tablet PO 09/13/24 13:59 Not Given TID ASHWIN Mirtazapine 45 mg 08/09/24 21:00 08/18/24 20:18 Mirtazapine 15 Mg Tablet PO 09/08/24 20:59 45 mg HS ASHWIN Administration Ondansetron HCl 4 mg 08/09/24 15:20 Ondansetron Inj 2 Mg/Ml Inj 2 Ml IV 09/08/24 15:19 Q6H PRN NAUSEA OR VOMITING Protocol Paroxetine HCl 20 mg 08/14/24 21:00 08/18/24 20:20 Paroxetine Hcl 10 Mg Tablet PO 09/13/24 20:59 20 mg HS ASHWIN Administration Pharmacy Consult 1 each 08/11/24 20:59 Pharmacy Renal Dose Adjustment 1 Ea XX 09/10/24 20:58 PRN PRN CONSULT Risperidone 3 mg 08/14/24 21:00 08/18/24 20:20 Risperidone 1 Mg Tablet PO 09/13/24 20:59 3 mg HS ASHWIN Administration Rivaroxaban 20 mg 08/19/24 09:00 Rivaroxaban 10 Mg Tablet PO 09/18/24 08:59 QDAY ASHWIN Sevelamer Carbonate 800 mg 08/17/24 08:00 08/18/24 16:31 Sevelamer Carbonate 800 Mg Tablet PO 09/16/24 07:59 800 mg TIDWM ASHWIN Administration Tamsulosin HCl 0.4 mg 08/09/24 16:00 08/18/24 09:17 Tamsulosin Hcl 0.4 Mg Capsule PO 09/08/24 15:59 Not Given QDAY ASHWIN Topiramate 50 mg 08/09/24 21:00 08/13/24 22:46 Topiramate 25 Mg Tablet PO 09/08/24 20:59 Not Given HS ASHWIN Plan Assessment Andrew is a 64 y/o male with past medical history of hypertension, hyperlipidemia, CAD, type 2 diabetes insulin-dependent, CHF, A-fib (on Eliquis 5mg twice daily), history of seizures who is currently admitted into the ICU for acute hypoxic hypercarbic respiratory failure requiring intubation and likely septic shock secondary to influenza A. #Afib with RVR, on home Eliquis [id number] HAS-BLED: 1 AC:Has home Eliquis Plan: ?We recommend continue with continue with Cardizem 120 mg CD upon d/c ?Please restart amiodarone drip and oral amio 200 mg bid if HR is high and BP low, however AST in the 80, ALT in the 300s and downtrending. ?Heparin drip held for dialysis catheter insertion ?Keep potassium between 4 and 5 and magnesium greater than 2.0 at all times. ?Recommend to continue to monitor on telemetry ?Continue dialysis with goal of atleast 3L /day if BP permits and additional sessions if pt can tolerate ?Continue CPAP every night #Septic shock secondary to, (improving) #Influenza A #? Superimposed bacterial infection Influenza A positive Pt currently has A line at this time Blood cultures NG2D, sputum and MRSA negative Off pressors Patient has finished Tamiflu Plan: -Continue Unasyn #Hx of CAD #Acute exacerbation of HFpEF with diastolic dysfunction #Mild aortic stenosis #NSTEMI type II, likely related to demand ischemia , resolved Echo shows EF 55-60%, normal LV, mild LVH, dilated RV, IVC dilated, AV stenosis Troponins have peaked No urine output past 24 hours, BUN/Cr 6 and 5.6 respectively Patient should get at least 3 L removed each session and additional sessions if blood pressure tolerates As patient still able to make urine, we recommend diuresis at some point Plan: -Patient is still fluid overloaded significantly, nephrology has been on board and continue dialysis. ?We recommend diuresis with Bumex if pt is able to produce urine ? Dialysis catheter insertion today #IDDM #Hyperlipidemia #Hypertension Total Cholesterol: 83 LDL:30 A1c 7.1 Plan: Consider resuming home blood pressure medicines at some point as blood pressure tolerates Resumed home Rosuvastatin Primary team to handle BG #Acute hypoxic hypercarbic respiratory failure, improving #Respiratory acidosis, improving #Hx of COPD #OHS Plan: -CPAP at night -Pulmonary hygiene -Chest physiotherapy -Continue levalbuterol #ESRD, on HD #ARIANA, prerenal #Shock liver #History of depression #History of seizures #Normocytic Anemia #Mild Hyponatremia Hypo-osmolar, Hypervolemic Above managed by primary hospitalist team Patient seen and care discussed with my attending physician, Dr. Karrie Merritt, PGY-1 Attending Provider Attestation/Addendum I have personally seen and examined the patient separately on the above date of service and discussed the plan of care with the resident. I reviewed the resident Dr. Gaming consultation progress note and agree with the resident findings and plan in the note above and have also edited the documentation to reflect my findings and plan. Nacho Yoon M.D. Interventional Cardiology
--- NOTE | 2024-08-19 09:17 | PD.RESPRO ---
Documentation for date of: 08/19/24 Subjective Subjective Interval history: Andrew Bella is a 64-year-old male with a past medical history of hypertension, hyperlipidemia, CAD, insulin-dependent type 2 diabetes mellitus, CHF, A-fib, depression, and history of seizures who recently moved from [place] and initially presented to ED on 08/09 with dyspnea and productive cough with associated pleuritic chest pain, cough, wheezing, and weakness. Also noted to have bilateral lower extremity edema and orthopnea, but denied paroxysmal nocturnal dyspnea. In ED, vitals significant for temperature of 100.8 ?F and on room air. Labs showed BUN 29, 1.6, GFR 48, glucose 228, LDH 256, BNP 275, UA 4+ glucose, U tox negative. Influenza A positive. Patient subsequently started on Tamiflu as well as Lasix for possible CHF exacerbation. Throughout hospital course, on 08/10 patient has had 2 rapid responses very well for desaturation requiring BiPAP and IV steroids/antibiotics and the second for hypoxia with altered mentation, requiring intubation for airway protection prompting transfer to ICU for further care. Around time of intubation, ABG showed pH 6.97, pCO2 97. MAP noted to drop below 65 and was started on Levophed and vasopressin. Cardiology consulted for further evaluation of possible CHF exacerbation and A-fib. Although unable to determine baseline renal function, creatinine increased from 1.8 to 2.9 overnight and so nephrology was consulted. Given that patient is intubated, history obtained from chart review. 08/11: Patient seen and examined in ICU, intubated and undergoing cooling measures for fever of 103.1 ?F. Creatinine noted to jump from 1.8 to 2.9 overnight. Suspect acute tubular necrosis in setting of hypotension with MAP less than 65 mmHg noted on 08/10. Also associated increase in lactic acid from 2.2 to 4.6 as well as overnight increase in LFTs (AST 17 to 553 and AST from 10 to 54). Will follow-up on urine studies as well as renal ultrasound. 08/12: Patient seen and examined in ICU, intubated and ventilated. Labs and orders reviewed. Na 129, BUN 67, Cr steadily increasing to 4.0, Ca 8.2. LFTs remain elevated (AST 423, ALT 364). Produced less than 20 cc of urine overnight. Still pending urine studies. Vancomycin changed to linezolid, continuing azithromycin and Zosyn. CTA chest: Bilateral pneumonia with arts pattern. Repeat CXR showed worsening of pneumonia and ARDS. DC'd IV steroids and amlodipine. Vas-Cath placed for hemodialysis. 08/13: Patient seen and examined in ICU, inbutaed and ventilated. Labs and orderse reviewed. Na stable at 129, BUN 66 and Cr again increased from 4.0 to 4.2. LFTs continue to uptrend (AST 688, ALT 597). Patient was given bumex x1 yesterday but had minimal urine output and so he underwent a session of dialysis for two hours with plans for hemodialysis again today. 08/14: Currently seen in ICU. Remains on ventilator and pressors. Blood pressure 123/76, heart rate 105. WBC 11.3, hemoglobin 10, platelets 158. Sodium 131, potassium 4, BUN 58, creatinine 4, total bilirubin 1.4, AST 778, ALT 752, alk phos 42, total protein 5.8, ammonia level 18, albumin 3.3. Abdominal x-ray showed no air in distended stomach. Chest x-ray showed extensive bilateral pneumonia with fluid overload. 08/15: Currently seen in ICU. Remains on ventilator. Blood sugar 123. Blood pressure 107/67, heart rate 110 to 130. WBC 11.9, hemoglobin 10, platelets 171. ABG showing pH 7.47, pCO2 29, pO2 193, bicarbonate 22.Sodium 133, potassium 3.8, bicarbonate 23.4, BUN 52, creatinine 4.3, calcium 9, phosphorus 3.8, AST 455, ALT 669, total bilirubin 1.3, albumin 3.1 Chest x-ray showed extensive bilateral pneumonia with fluid overload. Will receive extra session of dialysis today. Goal will be to increase bicarbonate for compensation for respiratory acidosis. 08/16: Seen and examined in ICU. Per ICU team, possible trial for extubation today and will plan for hemodialysis afterwards. Vitals stable, currently on mechanical ventilation, no longer on pressors other than midodrine. WBC downtrending from 12 to 10.8, hemoglobin stable at 10. ABG showing pH 7.33, pCO2 50, pO2 149. Na 135, K 3.9, BUN 51, Cr increased from 3.7 to 4.5, phosphorus increased from 3.8 to 6.3. LFTs improving, AST 142 and ALT 446. 08/17: Seen and examined while undergoing dialysis and tolerating well. Successfully extubated and downgraded to floors yesterday. Denies shortness of breath, chest pain, fever, chills, muscle aches/pains. WBC downtrending, hemoglobin stable, and LFTs also downtrending. However, renal function remains decreased despite daily dialysis with creatinine increasing from 4.5 to 5.6, BUN increasing from 51 to 65, phosphorus from 6.3 to 6.1. 08/18: Seen and examined in telemetry, resting comfortably in bed and states that he continues to feel overall better. No acute overnight events. Continues to be on 4 L NC and saturating 99%, otherwise vitals stable. WBC now wnl, hemoglobin stable at 10.2. Na borderline low at 135, renal function improved (BUN decreased from 65 to 53 and Cr decreased from 5.6 to 5.0). Phos decreasing from 6.1 to 5.5 on Sevelamer. Will undergo hemodialysis today with arrangements being made for outpatient dialysis as well. PPD already ordered, ordered HIV and hepatitis panels today. 08/19: Seen and examined at bedside while undergoing dialysis, tolerating well. No acute overnight events. Denies shortness of breath, chest pain, fever, chills, nausea/vomiting. HIV and hepatitis panel negative, still pending PPD read (due in evening today). Exam Vital Signs Temp Pulse Resp BP Pulse Ox O2 Del Method O2 Flow Rate 97.5 F 83 21 H 121/66 99 Nasal Cannula 1 08/19/24 08:00 08/19/24 09:15 08/19/24 08:00 08/19/24 09:15 08/19/24 08:00 08/19/24 08:00 08/19/24 08:00 FiO2 30 08/17/24 12:26 Narrative Exam General: extubated, breathing comfortably on NC, AOx3, no acute distress, able to speak full sentences HEENT: NC/AT, mucous membranes moist, bilateral sclera anicteric Cardiovascular: systolic murmur appreciated, S1/S2 present Pulmonary: mild crackles heard at bases Abdominal: obese, bowel sounds present, non-tender Musculoskeletal: 2+ bilateral lower extremity edema Skin: purple discoloration in bilateral lower extremities, intact Objective Labs 08/21/24 04:39 08/21/24 04:39 Labs: Laboratory Results - last 24 hr 08/18/24 08/19/24 05:31 05:09 WBC 8.5 RBC 3.85 L Hgb 10.4 L Hct 32.5 L MCV 84 MCH 27.0 MCHC 32.0 RDW Std Deviation 48.5 H Plt Count 230 Neut % (Auto) 66 Lymph % (Auto) 15 [place] % (Auto) 11 Eos % (Auto) 2 Baso % (Auto) 0 Neut # (Auto) 5.6 Lymph # (Auto) 1.3 [place] # (Auto) 1.0 H Eos # (Auto) 0.2 Baso # (Auto) 0.0 Immature Gran # (Auto) 0.49 H Absolute Nucleated RBC 0.00 Immature Gran % 6 H Nucleated RBC % 0 Hepatitis A IgM Ab Non Reactive Hep Bs Antigen Non Reactive Hep B Core IgM Ab Non Reactive Hepatitis C Antibody Non Reactive HIV 1&2 Antibody Rapid Non-Reactive ABG Interpretation ABG results: 08/10/24 08/10/24 08/10/24 11:34 13:55 16:46 ABG pH 7.21 L 6.97 L* D 6.99 L* ABG pCO2 49 H 95 H* D 78 H* D ABG pO2 60 L 64 L 41 L* D ABG HCO3 20 22 19 L ABG O2 Saturation 86 L 80 L 58 L ABG Base Excess -8 L -12 L -14 L VBG pH VBG pCO2 VBG pO2 VBG Base Excess 08/10/24 08/10/24 08/10/24 19:28 20:48 21:13 ABG pH 7.01 L* Cancelled 7.08 L* ABG pCO2 75 H* Cancelled 69 H ABG pO2 47 L* Cancelled 61 L ABG HCO3 19 L Cancelled 20 ABG O2 Saturation 72 L Cancelled 87 L ABG Base Excess -13 L Cancelled -11 L VBG pH VBG pCO2 VBG pO2 VBG Base Excess 08/11/24 08/11/24 08/11/24 00:34 04:08 14:56 ABG pH 7.14 L* 7.16 L* 7.17 L* ABG pCO2 60 H 54 H 50 H ABG pO2 83 D 114 H D 72 L D ABG HCO3 20 19 L 18 L ABG O2 Saturation 96 99 H 93 ABG Base Excess -10 L -10 L -10 L VBG pH VBG pCO2 VBG pO2 VBG Base Excess 08/11/24 08/11/24 08/12/24 20:05 23:14 02:06 ABG pH 7.20 L 7.25 L 7.27 L ABG pCO2 55 H 49 H 50 H ABG pO2 82 L 93 90 ABG HCO3 21 22 23 ABG O2 Saturation 96 98 98 ABG Base Excess -7 L -6 L -4 L VBG pH VBG pCO2 VBG pO2 VBG Base Excess 08/12/24 08/12/24 08/12/24 06:30 10:13 10:45 ABG pH 7.34 L 7.31 L ABG pCO2 41 42 ABG pO2 177 H D 134 H D ABG HCO3 22 21 ABG O2 Saturation 100 H 100 H ABG Base Excess -4 L -5 L VBG pH 7.30 L VBG pCO2 43 VBG pO2 53 VBG Base Excess -5 L 08/12/24 08/12/24 08/13/24 14:10 19:57 04:27 ABG pH 7.33 L 7.35 7.35 ABG pCO2 40 41 40 ABG pO2 114 H D 103 95 ABG HCO3 21 23 22 ABG O2 Saturation 99 H 99 H 98 ABG Base Excess -5 L -3 -4 L VBG pH VBG pCO2 VBG pO2 VBG Base Excess 08/13/24 08/13/24 08/13/24 20:14 21:45 23:54 ABG pH 7.26 L 7.26 L 7.26 L ABG pCO2 61 H D 60 H 59 H ABG pO2 84 201 H D 151 H D ABG HCO3 27 H 27 H 27 H ABG O2 Saturation 96 100 H 100 H ABG Base Excess -1 -1 -1 VBG pH VBG pCO2 VBG pO2 VBG Base Excess 08/14/24 08/14/24 08/15/24 02:49 18:04 06:30 ABG pH 7.39 D 7.32 L 7.47 H D ABG pCO2 41 D 53 H D 29 L D ABG pO2 292 H D 204 H D 193 H ABG HCO3 25 27 H 22 ABG O2 Saturation 101 H 100 H 99 H ABG Base Excess 0 0 -1 VBG pH VBG pCO2 VBG pO2 VBG Base Excess 08/16/24 04:14 ABG pH 7.33 L D ABG pCO2 50 H D ABG pO2 149 H D ABG HCO3 26 ABG O2 Saturation 100 H ABG Base Excess 0 VBG pH VBG pCO2 VBG pO2 VBG Base Excess Quality Measures Quality Measures VTE prophylaxis Assessment & Plan Assessment Current Active Medications: Generic Name Dose Route Start Last Admin Trade Name Freq PRN Reason Stop Dose Admin Acetaminophen 650 mg 08/11/24 08:37 Acetaminophen 325 Mg Tablet PO 09/10/24 05:56 Q6HR PRN FEVER >101 Aspirin 81 mg 08/11/24 09:00 08/18/24 09:17 Aspirin Ec 81 Mg Tabec PO 09/10/24 08:59 Not Given QDAY ASHWIN Rosuvastatin 20 Mg 0 ea 08/09/24 21:00 08/13/24 22:47 PO 09/08/24 20:59 Not Given HS ASHWIN Dextrose 25 ml 08/09/24 15:31 Dextrose 50%-Water Inj 50 Ml Syringe IV 09/08/24 15:30 Q15MIN PRN BG 50-70 responsive npo pt Dextrose 50 ml 08/09/24 15:31 08/12/24 04:24 Dextrose 50%-Water Inj 50 Ml Syringe IV 09/08/24 15:30 50 ml Q15MIN PRN Administration BG <50 OR BG <70 & pt unresponsive Diltiazem HCl 30 mg 08/15/24 22:00 08/19/24 05:24 Diltiazem 30 Mg Tablet PO 09/14/24 21:59 30 mg TID ASHWIN Administration Glucagon 1 mg 08/09/24 15:31 Glucagon Inj 1 Mg Vial IM Q15MIN PRN BG <70, and no IV access Heparin Sodium (Porcine) 3,000 unit 08/12/24 15:11 08/16/24 18:32 Heparin Sod Inj 1000 Unit/Ml Vial 10 Ml INDWELLCAT 08/26/24 15:10 3,000 unit PRN PRN Administration DIALYSIS Albumin Human 25 gm in 100 mls @ 100 mls/min 08/12/24 15:11 08/15/24 14:00 Albuminar-25 Ivpb IV Infused PRN PRN Infusion DIALYSIS Ampicillin Sodium/Sulbactam 100 mls @ 200 mls/hr 08/17/24 21:00 08/18/24 20:18 Sodium 3 gm/ Sodium Chloride IV 08/20/24 11:59 200 mls/hr Q12HR ASHWIN Administration Protocol Insulin Glargine 18 unit 08/19/24 09:00 Insulin Glargine (Lantus) 5 Unit/0.05 Ml (Per 5 Units) SC 09/18/24 08:59 QDAY ASHWIN Insulin Human Lispro 0 unit 08/16/24 18:00 08/19/24 07:46 Insulin Lispro (Admelog) 1 Unit/0.01 Ml Unit SC 09/15/24 17:59 6 unit ACHS ASHWIN Administration Protocol Levalbuterol HCl 0.63 mg 08/13/24 19:15 08/19/24 07:15 Levalbuterol Rt 0.63 Mg/3 Ml Nebu INH 09/12/24 19:14 0.63 mg Q6HRRT ASHWIN Administration Midodrine 10 mg 08/14/24 14:00 08/17/24 14:30 Midodrine 5 Mg Tablet PO 09/13/24 13:59 Not Given TID ASHWIN Mirtazapine 45 mg 08/09/24 21:00 08/18/24 20:18 Mirtazapine 15 Mg Tablet PO 09/08/24 20:59 45 mg HS ASHWIN Administration Ondansetron HCl 4 mg 08/09/24 15:20 Ondansetron Inj 2 Mg/Ml Inj 2 Ml IV 09/08/24 15:19 Q6H PRN NAUSEA OR VOMITING Protocol Paroxetine HCl 20 mg 08/14/24 21:00 08/18/24 20:20 Paroxetine Hcl 10 Mg Tablet PO 09/13/24 20:59 20 mg HS ASHWIN Administration Pharmacy Consult 1 each 08/11/24 20:59 Pharmacy Renal Dose Adjustment 1 Ea XX 09/10/24 20:58 PRN PRN CONSULT Risperidone 3 mg 08/14/24 21:00 08/18/24 20:20 Risperidone 1 Mg Tablet PO 09/13/24 20:59 3 mg HS ASHWIN Administration Rivaroxaban 20 mg 08/19/24 09:00 Rivaroxaban 10 Mg Tablet PO 09/18/24 08:59 QDAY ASHWIN Sevelamer Carbonate 800 mg 08/17/24 08:00 08/18/24 16:31 Sevelamer Carbonate 800 Mg Tablet PO 09/16/24 07:59 800 mg TIDWM ASHWIN Administration Tamsulosin HCl 0.4 mg 08/09/24 16:00 08/18/24 09:17 Tamsulosin Hcl 0.4 Mg Capsule PO 09/08/24 15:59 Not Given QDAY ASHWIN Topiramate 50 mg 08/09/24 21:00 08/13/24 22:46 Topiramate 25 Mg Tablet PO 09/08/24 20:59 Not Given HS ASHWIN Plan Andrew Bella is a 64-year-old male with a past medical history of hypertension, hyperlipidemia, CAD, insulin-dependent type 2 diabetes mellitus, CHF, A-fib, depression, and history of seizures who initially presented to ED on 08/09 with dyspnea and productive cough with associated pleuritic chest pain, admitted for management of influenza PNA vs CHF exacerbation. Upgraded on 08/10 for airway protection requiring intubation and extubated and downgraded on 08/16. Nephrology consulted in setting of acute kidney injury and acute tubular necrosis. #Acute kidney injury #Acute tubular necrosis Renal US showed mild bilateral renal parenchymal scar formation without hydronephrosis. Plan of care discussed with the dialysis nurse. Please see dialysis flowsheet for further details. ? Status-post placement of permanent TDC, 08/18 ? Dialysis in a.m. ? Planning for outpatient dialysis ? Hepatitis and HIV panel negative ? Pending PPD read later today ? Avoid nephrotoxic agents ? Renally dose medications #Hyperphosphatemia ? Sevelamer 800 mg PO TID #Acute metabolic encephalopathy, resolved #History of seizures #Shock, resolved #HFpEF (EF 55 to 60%) #Atrial fibrillation #Transaminitis, improving #Hypertension #Hyperlipidemia #CAD #Acute hypoxic/hypercapnic respiratory failure, secondary to #Influenza A pneumonia #COPD #Type 2 diabetes mellitus, insulin-dependent ? Continue management per ICU team ----- Plan discussed with attending physician Dr. Jean-Claude Khan MD PGY-1 Internal Medicine Attending Provider Attestation/Addendum Patient seen and examined with resident physician Dr. Angel. Note reviewed, agree with findings and recommendations. s/p permanent dialysis catheter and outpatient dialysis arrangements to be done. Patient currently seen on dialysis. Tolerating dialysis without any problems. Hemodialysis for 3 hours, 2K, ultrafiltration 2-3 L, Epogen 6000, no heparin ordered. Plan of care discussed with the dialysis nurse. Please see dialysis flowsheet for further details.
[2024-08-19 09:33] LABS: Alanine Aminotransferase 149 U/L (10-49); Albumin, Serum 3.6 gm/dL (3.4-4.8); Albumin/Globulin Ratio 1.2 (1.2-2.2); Alkaline Phosphatase 37 U/L (46-116); Anion Gap 10 (7-16); Aspartate Amino Transferase 22 U/L (0-34); BUN/Creatinine Ratio 11 Ratio (12-20); Bilirubin,Total 0.9 mg/dL (0.3-1.2); Blood Urea Nitrogen 52 mg/dL (9-23); Calcium 8.2 mg/dL (8.3-10.6); Calcium (Corrected) 8.5 mg/dL (8.5-10.1); Carbon Dioxide 29.6 mMol/L (20.0-31.0); Chloride 94 mMol/L (98-107); Creatinine (Component) 4.9 mg/dL (0.6-1.3); Estimated Creatinine Clearance 24.2 mL/min (>60); Globulin 2.9 gm/dL (2.3-3.5); Glucose 157 mg/dL (74-106); Magnesium 2.4 mg/dL (1.6-2.6); Osmolality,Calculated 285 (275-295); Phosphorous 5.2 mg/dL (2.4-5.1); Potassium 3.1 mMol/L (3.4-5.1); Sodium 134 mMol/L (136-145); Total Protein 6.5 gm/dL (5.7-8.2); eGFR 12 See Note
[2024-08-19] MEDS: HEPARIN SOD INJ 1000 UNIT/ML VIAL 10 ML 3000 UNIT INDWELLCAT (11:11)
[2024-08-19] MEDS: SEVELAMER CARBONATE 800 MG TABLET PO ×2 (12:03→16:54)
[2024-08-19] MEDS: POTASSIUM CHLORIDE 20 mEq TABCR 40 MEQ PO (13:21)
--- NOTE | 2024-08-19 14:20 | ESPR_ITS ---
<Statement entered by Daniel Cox MD - 08/19/24 16:01> Patient was seen and examined at the bedside this morning. Patient received his catheter yesterday and his outpatient dialysis days are scheduled as of We switched him to rivaroxaban and cardiology recommended to start Cardizem CD 120 once daily. Blood sugars have been controlled with Lantus increased to 18 units daily. Continue aspirin as well. Will continue Unasyn for possible aspiration pneumonia. Hemoglobin remained stable at 10.4. Labs revealed mild hypokalemia however the patient received his dialysis today. Anticipating discharge once authorization is completed possibly today. All labs and orders were reviewed. I saw and examined the patient, and I agree with current management stated by Dr Dr Salina MD,PGY1. Plan of care was discussed with the attending physician and resident physician. Disclaimer: Despite multiple revisions, due to the dictation software being used, the document bellow may not be free of grammatical errors including phonetic/typographic errors. However, this does not deter from our commitment to providing health care in the patient's best interest in mind. Dr. Brooke MD, PGY 2 Documentation for date of: 08/19/24 Exam Vital Signs Temp Pulse Resp BP Pulse Ox O2 Del Method O2 Flow Rate 97.3 F 99 18 133/71 H 100 Nasal Cannula 1 08/19/24 12:00 08/19/24 13:32 08/19/24 13:32 08/19/24 13:21 08/19/24 13:32 08/19/24 12:00 08/19/24 13:32 FiO2 30 08/19/24 12:00 Narrative Exam General: AAOx3 morbidly obese man, bearded male HEENT: Moist mucous membranes, conjunctiva clear, EOMI,skin tags present Cardiovascular: Pansystolic murmur ausculated upon mitral valve and R sternal border, no carotid bruit appreciated, radial pulses +2 bilat, irregularly irregular but regular rate Pulmonary: Diffuse expiratory wheezing. Poor lung sounds due to body habitus. GI: No ascites noted, bowel sounds present, no tenderness Extremities: venous stasis with stasis dermatitis, unkempt feet, +3 pitting edema bilateral lower extremity Neuro: AAOx3, no focal motor or sensory deficits Objective Labs 08/19/24 05:09 08/19/24 08:45 Labs: Laboratory Results - last 24 hr 08/18/24 08/19/24 08/19/24 05:31 05:09 08:45 WBC 8.5 RBC 3.85 L Hgb 10.4 L Hct 32.5 L MCV 84 MCH 27.0 MCHC 32.0 RDW Std Deviation 48.5 H Plt Count 230 Neut % (Auto) 66 Lymph % (Auto) 15 [place] % (Auto) 11 Eos % (Auto) 2 Baso % (Auto) 0 Neut # (Auto) 5.6 Lymph # (Auto) 1.3 [place] # (Auto) 1.0 H Eos # (Auto) 0.2 Baso # (Auto) 0.0 Immature Gran # (Auto) 0.49 H Absolute Nucleated RBC 0.00 Immature Gran % 6 H Nucleated RBC % 0 Sodium 134 L Potassium 3.1 L Chloride 94 L Carbon Dioxide 29.6 Anion Gap 10 BUN 52 H Creatinine 4.9 H* Estim Creat Clear Calc 24.2 L eGFR 12 L* BUN/Creatinine Ratio 11 L Glucose 157 H Calculated Osmolality 285 Calcium 8.2 L Corrected Calcium 8.5 Phosphorus 5.2 H Magnesium 2.4 Total Bilirubin 0.9 AST 22 ALT 149 H Alkaline Phosphatase 37 L Total Protein 6.5 Albumin 3.6 Globulin 2.9 Albumin/Globulin Ratio 1.2 HIV 1&2 Antibody Rapid Non-Reactive ABG Interpretation ABG results: 08/10/24 08/10/24 08/10/24 11:34 13:55 16:46 ABG pH 7.21 L 6.97 L* D 6.99 L* ABG pCO2 49 H 95 H* D 78 H* D ABG pO2 60 L 64 L 41 L* D ABG HCO3 20 22 19 L ABG O2 Saturation 86 L 80 L 58 L ABG Base Excess -8 L -12 L -14 L VBG pH VBG pCO2 VBG pO2 VBG Base Excess 08/10/24 08/10/24 08/10/24 19:28 20:48 21:13 ABG pH 7.01 L* Cancelled 7.08 L* ABG pCO2 75 H* Cancelled 69 H ABG pO2 47 L* Cancelled 61 L ABG HCO3 19 L Cancelled 20 ABG O2 Saturation 72 L Cancelled 87 L ABG Base Excess -13 L Cancelled -11 L VBG pH VBG pCO2 VBG pO2 VBG Base Excess 08/11/24 08/11/24 08/11/24 00:34 04:08 14:56 ABG pH 7.14 L* 7.16 L* 7.17 L* ABG pCO2 60 H 54 H 50 H ABG pO2 83 D 114 H D 72 L D ABG HCO3 20 19 L 18 L ABG O2 Saturation 96 99 H 93 ABG Base Excess -10 L -10 L -10 L VBG pH VBG pCO2 VBG pO2 VBG Base Excess 08/11/24 08/11/24 08/12/24 20:05 23:14 02:06 ABG pH 7.20 L 7.25 L 7.27 L ABG pCO2 55 H 49 H 50 H ABG pO2 82 L 93 90 ABG HCO3 21 22 23 ABG O2 Saturation 96 98 98 ABG Base Excess -7 L -6 L -4 L VBG pH VBG pCO2 VBG pO2 VBG Base Excess 08/12/24 08/12/24 08/12/24 06:30 10:13 10:45 ABG pH 7.34 L 7.31 L ABG pCO2 41 42 ABG pO2 177 H D 134 H D ABG HCO3 22 21 ABG O2 Saturation 100 H 100 H ABG Base Excess -4 L -5 L VBG pH 7.30 L VBG pCO2 43 VBG pO2 53 VBG Base Excess -5 L 08/12/24 08/12/24 08/13/24 14:10 19:57 04:27 ABG pH 7.33 L 7.35 7.35 ABG pCO2 40 41 40 ABG pO2 114 H D 103 95 ABG HCO3 21 23 22 ABG O2 Saturation 99 H 99 H 98 ABG Base Excess -5 L -3 -4 L VBG pH VBG pCO2 VBG pO2 VBG Base Excess 08/13/24 08/13/24 08/13/24 20:14 21:45 23:54 ABG pH 7.26 L 7.26 L 7.26 L ABG pCO2 61 H D 60 H 59 H ABG pO2 84 201 H D 151 H D ABG HCO3 27 H 27 H 27 H ABG O2 Saturation 96 100 H 100 H ABG Base Excess -1 -1 -1 VBG pH VBG pCO2 VBG pO2 VBG Base Excess 08/14/24 08/14/24 08/15/24 02:49 18:04 06:30 ABG pH 7.39 D 7.32 L 7.47 H D ABG pCO2 41 D 53 H D 29 L D ABG pO2 292 H D 204 H D 193 H ABG HCO3 25 27 H 22 ABG O2 Saturation 101 H 100 H 99 H ABG Base Excess 0 0 -1 VBG pH VBG pCO2 VBG pO2 VBG Base Excess 08/16/24 04:14 ABG pH 7.33 L D ABG pCO2 50 H D ABG pO2 149 H D ABG HCO3 26 ABG O2 Saturation 100 H ABG Base Excess 0 VBG pH VBG pCO2 VBG pO2 VBG Base Excess Quality Measures Quality Measures VTE prophylaxis Assessment & Plan Assessment Current Active Medications: Generic Name Dose Route Start Last Admin Trade Name Freq PRN Reason Stop Dose Admin Acetaminophen 650 mg 08/11/24 08:37 Acetaminophen 325 Mg Tablet PO 09/10/24 05:56 Q6HR PRN FEVER >101 Aspirin 81 mg 08/11/24 09:00 08/19/24 09:43 Aspirin Ec 81 Mg Tabec PO 09/10/24 08:59 Not Given QDAY ASHWIN Rosuvastatin 20 Mg 0 ea 08/09/24 21:00 08/13/24 22:47 PO 09/08/24 20:59 Not Given HS ASHWIN Dextrose 25 ml 08/09/24 15:31 Dextrose 50%-Water Inj 50 Ml Syringe IV 09/08/24 15:30 Q15MIN PRN BG 50-70 responsive npo pt Dextrose 50 ml 08/09/24 15:31 08/12/24 04:24 Dextrose 50%-Water Inj 50 Ml Syringe IV 09/08/24 15:30 50 ml Q15MIN PRN Administration BG <50 OR BG <70 & pt unresponsive Diltiazem HCl 30 mg 08/15/24 22:00 08/19/24 13:21 Diltiazem 30 Mg Tablet PO 09/14/24 21:59 30 mg TID ASHWIN Administration Diltiazem HCl 120 mg 08/20/24 09:00 Diltiazem Cd 120 Mg Capcr PO 09/19/24 08:59 QDAY ASHWIN Glucagon 1 mg 08/09/24 15:31 Glucagon Inj 1 Mg Vial IM Q15MIN PRN BG <70, and no IV access Heparin Sodium (Porcine) 3,000 unit 08/12/24 15:11 08/19/24 11:11 Heparin Sod Inj 1000 Unit/Ml Vial 10 Ml INDWELLCAT 08/26/24 15:10 3,000 unit PRN PRN Administration DIALYSIS Albumin Human 25 gm in 100 mls @ 100 mls/min 08/12/24 15:11 08/15/24 14:00 Albuminar-25 Ivpb IV Infused PRN PRN Infusion DIALYSIS Ampicillin Sodium/Sulbactam 100 mls @ 200 mls/hr 08/17/24 21:00 08/19/24 09:44 Sodium 3 gm/ Sodium Chloride IV 08/20/24 11:59 Not Given Q12HR [facility] Protocol Insulin Glargine 18 unit 08/19/24 09:00 08/19/24 09:43 Insulin Glargine (Lantus) 5 Unit/0.05 Ml (Per 5 Units) SC 09/18/24 08:59 Not Given QDAY [facility] Insulin Human Lispro 0 unit 08/16/24 18:00 08/19/24 11:37 Insulin Lispro (Admelog) 1 Unit/0.01 Ml Unit SC 09/15/24 17:59 Not Given ACHS [facility] Protocol Levalbuterol HCl 0.63 mg 08/13/24 19:15 08/19/24 13:31 Levalbuterol Rt 0.63 Mg/3 Ml Nebu INH 09/12/24 19:14 0.63 mg Q6HRRT ASHWIN Administration Midodrine 10 mg 08/14/24 14:00 08/17/24 14:30 Midodrine 5 Mg Tablet PO 09/13/24 13:59 Not Given TID ASHWIN Mirtazapine 45 mg 08/09/24 21:00 08/18/24 20:18 Mirtazapine 15 Mg Tablet PO 09/08/24 20:59 45 mg HS ASHWIN Administration Ondansetron HCl 4 mg 08/09/24 15:20 Ondansetron Inj 2 Mg/Ml Inj 2 Ml IV 09/08/24 15:19 Q6H PRN NAUSEA OR VOMITING Protocol Paroxetine HCl 20 mg 08/14/24 21:00 08/18/24 20:20 Paroxetine Hcl 10 Mg Tablet PO 09/13/24 20:59 20 mg HS ASHWIN Administration Pharmacy Consult 1 each 08/11/24 20:59 Pharmacy Renal Dose Adjustment 1 Ea XX 09/10/24 20:58 PRN PRN CONSULT Risperidone 3 mg 08/14/24 21:00 08/18/24 20:20 Risperidone 1 Mg Tablet PO 09/13/24 20:59 3 mg HS ASHWIN Administration Rivaroxaban 20 mg 08/19/24 09:00 08/19/24 09:43 Rivaroxaban 10 Mg Tablet PO 09/18/24 08:59 Not Given QDAY ASHWIN Sevelamer Carbonate 800 mg 08/17/24 08:00 08/19/24 12:03 Sevelamer Carbonate 800 Mg Tablet PO 09/16/24 07:59 800 mg TIDWM ASHWIN Administration Tamsulosin HCl 0.4 mg 08/09/24 16:00 08/19/24 09:44 Tamsulosin Hcl 0.4 Mg Capsule PO 09/08/24 15:59 Not Given QDAY ASHWIN Topiramate 50 mg 08/09/24 21:00 08/13/24 22:46 Topiramate 25 Mg Tablet PO 09/08/24 20:59 Not Given HS ASHWIN Plan 64-year-old male with past medical history of hypertension, hyperlipidemia, coronary artery disease, type diabetes mellitus insulin-dependent, CHF, atrial fibrillation, history of seizures who was admitted to [facility] for management of CHF exacerbation and influenza A. Patient upgraded to ICU after emergent intubation post worsening of mentation and bedside aspiration with inability to protect airway. Successfully extubated, downgraded to floors for further management. #Acute renal failure secondary to ischemic ATN #Fluid overload Patient developed severe renal failure requiring dalysis in ICU. Patient has received multple rounds of dialysis. Outpatient dialysis being arranged, tunnelled cath placed succesfuly. -Continue inpatient dialysis -Will monitor renal function -Consulted pharmacy to dose medications renally -Avoid nephrotoxic agents -Savelamer #Acute hypoxic/hypercapnic respiratory failure, resolved #Influenza A #Aspiration pneumonia #COPD #Suspicion of obesity hypoventilation syndrome Patient was given Zosyn(08/10-08/13) , azithromycin, (08/10-08/12) linezolid (08/11-08/13) vancomycin (08/10-08/11), Tamiflu (08/09-08/14) Treatment: -DuoNeb every 6 hours -BiPAP every night as needed -Continue Unasyn (08/13-08/20) #Atrial fibrillation with rapid ventricular response, rate controlled Treatment: -Continue Cardizem 120 mg Daily -Will consider digoxin for rate control if needed -Discontinued amiodarone due to concern of hepatotoxicity, will monitor heart rate -Cardiology following -Heparin drip held for tunneled dialysis cath placement, will start Xarelto #Congestive heart failure, HFpEF EF 55 to 60% # Mild aortic stenosis, mitral stenosis Patient history as stated. Cardiology on board. -Monitor urine output -Continue scheduled dialysis as per nephro recommendations #History of seizures Patient has a past medical history of seizures, last seizure was several years ago and patient cannot recall but has been stable. Home medication topiramate 50 mg HS, will continue to hold. #Hypertension #Hyperlipidemia #History of coronary artery disease Has a past medical history of hyperlipidemia with a previous history of NE approximately 5 years ago. Patient takes rosuvastatin 20 mg at bedtime, holding rosuvastatin due to hepatitis Patient has a past medical history of hypertension on losartan, held due acute kidney injury #Hepatitis 2/2 shock liver versus drug toxicity versus fluid overload Will continue to maintain mean arterial pressure >65 Discontinued amiodarone, topiramate Downtrending -Follow LFTs in AM #Type 2 diabetes mellitus, insulin-dependent # Hyperglycemia Patient has a past medical history of diabetes mellitus type 2 Home medication include Lantus 12 units, Januvia (Sitagliptin), Jardiance (Empagliflozin), and Ozempic. Diagnostic workup: Hemoglobin A1c 7.1 Difficulty controlling blood sugar, had to increase Lantus. -Lantus 18 units daily, sliding scale lispro #Septic shock secondary to aspiration pneumonia, resolved Patient initially admitted for septic shock, upgraded to ICU. Patient was extubated and downgraded to floors. #Influenza A, treated Influenza positive, completed course of Tamiflu. #Acute metabolic encephalopathy, resolved Multifactorial: Acute hypoxic/hypercapnic respiratory failure, underlying acidosis, underlying sepsis, polypharmacy -Resume patient's home Remeron, Paxil DVT prophylaxis: Xarelto GI prophylaxis: None Diet: Carb consistent low, renal, fluid restriction Lines: Femoral line, peripheral IV Code status: Full code Plan of care discussed with senior resident Dr. Cox PGY?[address] Brennan. Xu Downing MD PGY-1 Attending Provider Attestation/Addendum I have examined the patient, reviewed labs and imaging findings, discussed the case with the resident(s), and reviewed entered orders. I agree with the plan of care as outlined in this note, with these additional summaries/recommendations: Patient seen at bedside. No acute overnight events. Patient received dialysis today and tolerated well. Arranging placement and out patient chair time. Nephrology following. Appreciate recs on dialysis days. Patient will complete treatment course for aspiration pneumonia tomorrow 08/20. Patient's atrial fibrillation continues to be controlled. We will transition to Cardizem 120 mg p.o. daily and continue Xarelto for elevated [id number] score. No longer requiring midodrine. Continue as needed breathing treatments for COPD. Continue home risperidone and paroxetine. Dr. Brennan
[2024-08-19] MEDS: MIRTAZAPINE 15 MG TABLET 45 MG PO (20:54)
[2024-08-19] MEDS: risperiDONE 1 MG TABLET 3 MG PO (20:54)
[2024-08-19] MEDS: PARoxetine HCL 10 MG TABLET 20 MG PO (20:54)
[2024-08-19] MEDS: AMPICILLIN/SULBAC INJ 3 GM in SODIUM CHLORIDE 0.9% 100 ML IV (20:55)
[2024-08-20] VITALS (9 sets, daily range): BP systolic 114–166; BP diastolic 79–101; PULSE 80–109; RESP 17–92; TEMP 35.9–36.1; O2SAT 92–99; BMI 43.9
[2024-08-20] MEDS: INSULIN LISPRO (AdmeLOG) 1 UNIT/0.01 ML UNIT SC ×3 (07:35→20:37)
--- NOTE | 2024-08-20 08:13 | PD.RESPRO ---
Documentation for date of: 08/20/24 Subjective Subjective Interval history: 08/16/2024: Pt examined at bedside, telemetry reviewed rate controlled but still in afib. Pt is currently undergoing SBT, with plans to extubate today. BUN 51, Cr, 4.5, Mg 2.5 and potassium 3.9, WBC of 10.8, patient had dialysis yesterday with 1.9 L removed. Patient is off pressors, currently rate controlled with Cardizem 30 mg 3 times daily along with midodrine 10 mg tid. Please restart amiodarone drip and oral amio 200 mg bid if HR is high and BP low, however AST in the 140s, ALT in the 400sa and downtrending. No other complaints at this time. Severely voulme overloaded and continue dialysis with goal of atelast 3L /day if BP permits and additional sessions if pt can tolerate. 08/17/2024: Patient examined at bedside today during dialysis. Telemetry reviewed, patient seems to be rate controlled in the 100s, still in A-fib. Patient reports he is doing well, he does not remember what was happening in the ICU. He does not report any shortness of breath or chest pain at this time. He says that he uses CPAP last night. It was discussed with him for the need dialysis at this time. His potassium magnesium today were 3.6 and magnesium 2 respectively. His ALT and AST are 56 and 305 respectively, coming down. His hemoglobin was 10.2 and his white count was 9.7, BUN/creatinine of 65 and 4.6. Patient will need to continue dialysis at this time and need to remove at least 3 L a day if blood pressure admits and if patient needs additional sessions. No other complaints at this time 08/18/2024: Patient examined today at bedside. No overnight events on telemetry seen, rate controlled in the 90s. Patient reports he is doing well. He says that he did not use his CPAP last night because no one turn on the machine for him. He says that he is a bit hungry right now because he has not eaten yet. Has no chest pain or any palpitations or shortness of breath per patient. His BUN/creatinine today is 53 and 5.0 respectively, potassium 3.4, was given 20 mill equivalents IV, phosphorus 5.5, magnesium 2.3. Hemoglobin of 10.2, white count of 9., AST 32, ALT 210, downtrending. Patient to get dialysis catheter today, thus why heparin drip has been held. Patient still continue with Cardizem 30 mg 3 times dailyCan change to cardizem CD 120 mg daily when BP more stable and not on midodrine.Patient reports he is still making urine. No other complaints at this time. 08/19/2024: Patient examined at bedside today. No overnight events on telemetry, patient remains to be rate controlled in the 80s and 90s. Patient reports he is doing well, currently in dialysis chair. No overnight complaints. Patient's white blood cell count 8.5, hemoglobin 10.4. Patient's potassium 3.1 today we will give 40 mill equivalents oral, magnesium 2.1, phosphorus 5.2, BUN/creatinine 52 and 4.9 respectively. Patient seems to be controlled with Cardizem 30 mg 3 times daily, primary team to resume Xarelto 20 mg. Patient says he still makes urine. No other complaints this time 08/20/2024: Patient examined at bedside today. No acute overnight events on telemetry, patient seems to be rate controlled in 90s. Patient reports he is doing well. He did not use his CPAP last night, however slept well and did not wake up tired. He is not complaining of any chest pain, palpitations or headaches. No labs were drawn for patient at the time. Blood pressure remains to be stable 136/86 today. Patient is currently pending authorization for outpatient chair dialysis time, his dialysis schedule apparently be Friday. No other complaints this time. Patient will likely follow-up at the [facility] upon discharge. Exam Vital Signs Temp Pulse Resp BP Pulse Ox O2 Del Method O2 Flow Rate 96.6 F L 100 22 H 141/95 H 98 Nasal Cannula 1 08/20/24 08:00 08/20/24 08:00 08/20/24 08:00 08/20/24 08:00 08/20/24 08:00 08/20/24 08:00 08/20/24 08:00 FiO2 30 08/19/24 12:00 Narrative Exam General: AAOx3 morbidly obese man, bearded male, in diaylsis chair HEENT: Moist mucous membranes, conjunctiva clear, EOMI,skin tags present Cardiovascular: Pansystolic murmur ausculated upon mitral valve and R sternal border, no carotid bruit appreciated, radial pulses +2 bilat, irregularly irregular, R IJ Pulmonary: Some crackles heard in lung sounds GI: No ascites noted, bowel sounds present, however, abd obesity : No scrotal swelling Extremities: venous stasis noted, unkempt feet, +3 pitting edema bilat, Neuro: AAOx3, no focal motor or sensory deficits Objective Labs 08/20/24 12:35 08/20/24 12:35 Labs: Laboratory Results - last 24 hr 08/19/24 08:45 Sodium 134 L Potassium 3.1 L Chloride 94 L Carbon Dioxide 29.6 Anion Gap 10 BUN 52 H Creatinine 4.9 H* Estim Creat Clear Calc 24.2 L eGFR 12 L* BUN/Creatinine Ratio 11 L Glucose 157 H Calculated Osmolality 285 Calcium 8.2 L Corrected Calcium 8.5 Phosphorus 5.2 H Magnesium 2.4 Total Bilirubin 0.9 AST 22 ALT 149 H Alkaline Phosphatase 37 L Total Protein 6.5 Albumin 3.6 Globulin 2.9 Albumin/Globulin Ratio 1.2 ABG Interpretation ABG results: 08/10/24 08/10/24 08/10/24 11:34 13:55 16:46 ABG pH 7.21 L 6.97 L* D 6.99 L* ABG pCO2 49 H 95 H* D 78 H* D ABG pO2 60 L 64 L 41 L* D ABG HCO3 20 22 19 L ABG O2 Saturation 86 L 80 L 58 L ABG Base Excess -8 L -12 L -14 L VBG pH VBG pCO2 VBG pO2 VBG Base Excess 08/10/24 08/10/24 08/10/24 19:28 20:48 21:13 ABG pH 7.01 L* Cancelled 7.08 L* ABG pCO2 75 H* Cancelled 69 H ABG pO2 47 L* Cancelled 61 L ABG HCO3 19 L Cancelled 20 ABG O2 Saturation 72 L Cancelled 87 L ABG Base Excess -13 L Cancelled -11 L VBG pH VBG pCO2 VBG pO2 VBG Base Excess 08/11/24 08/11/24 08/11/24 00:34 04:08 14:56 ABG pH 7.14 L* 7.16 L* 7.17 L* ABG pCO2 60 H 54 H 50 H ABG pO2 83 D 114 H D 72 L D ABG HCO3 20 19 L 18 L ABG O2 Saturation 96 99 H 93 ABG Base Excess -10 L -10 L -10 L VBG pH VBG pCO2 VBG pO2 VBG Base Excess 08/11/24 08/11/24 08/12/24 20:05 23:14 02:06 ABG pH 7.20 L 7.25 L 7.27 L ABG pCO2 55 H 49 H 50 H ABG pO2 82 L 93 90 ABG HCO3 21 22 23 ABG O2 Saturation 96 98 98 ABG Base Excess -7 L -6 L -4 L VBG pH VBG pCO2 VBG pO2 VBG Base Excess 08/12/24 08/12/24 08/12/24 06:30 10:13 10:45 ABG pH 7.34 L 7.31 L ABG pCO2 41 42 ABG pO2 177 H D 134 H D ABG HCO3 22 21 ABG O2 Saturation 100 H 100 H ABG Base Excess -4 L -5 L VBG pH 7.30 L VBG pCO2 43 VBG pO2 53 VBG Base Excess -5 L 08/12/24 08/12/24 08/13/24 14:10 19:57 04:27 ABG pH 7.33 L 7.35 7.35 ABG pCO2 40 41 40 ABG pO2 114 H D 103 95 ABG HCO3 21 23 22 ABG O2 Saturation 99 H 99 H 98 ABG Base Excess -5 L -3 -4 L VBG pH VBG pCO2 VBG pO2 VBG Base Excess 08/13/24 08/13/24 08/13/24 20:14 21:45 23:54 ABG pH 7.26 L 7.26 L 7.26 L ABG pCO2 61 H D 60 H 59 H ABG pO2 84 201 H D 151 H D ABG HCO3 27 H 27 H 27 H ABG O2 Saturation 96 100 H 100 H ABG Base Excess -1 -1 -1 VBG pH VBG pCO2 VBG pO2 VBG Base Excess 08/14/24 08/14/24 08/15/24 02:49 18:04 06:30 ABG pH 7.39 D 7.32 L 7.47 H D ABG pCO2 41 D 53 H D 29 L D ABG pO2 292 H D 204 H D 193 H ABG HCO3 25 27 H 22 ABG O2 Saturation 101 H 100 H 99 H ABG Base Excess 0 0 -1 VBG pH VBG pCO2 VBG pO2 VBG Base Excess 08/16/24 04:14 ABG pH 7.33 L D ABG pCO2 50 H D ABG pO2 149 H D ABG HCO3 26 ABG O2 Saturation 100 H ABG Base Excess 0 VBG pH VBG pCO2 VBG pO2 VBG Base Excess Quality Measures Quality Measures VTE prophylaxis Assessment & Plan Assessment Current Active Medications: Generic Name Dose Route Start Last Admin Trade Name Freq PRN Reason Stop Dose Admin Acetaminophen 650 mg 08/11/24 08:37 Acetaminophen 325 Mg Tablet PO 09/10/24 05:56 Q6HR PRN FEVER >101 Aspirin 81 mg 08/11/24 09:00 08/19/24 09:43 Aspirin Ec 81 Mg Tabec PO 09/10/24 08:59 Not Given QDAY ASHWIN Rosuvastatin 20 Mg 0 ea 08/09/24 21:00 08/13/24 22:47 PO 09/08/24 20:59 Not Given HS ASHWIN Dextrose 25 ml 08/09/24 15:31 Dextrose 50%-Water Inj 50 Ml Syringe IV 09/08/24 15:30 Q15MIN PRN BG 50-70 responsive npo pt Dextrose 50 ml 08/09/24 15:31 08/12/24 04:24 Dextrose 50%-Water Inj 50 Ml Syringe IV 09/08/24 15:30 50 ml Q15MIN PRN Administration BG <50 OR BG <70 & pt unresponsive Diltiazem HCl 30 mg 08/15/24 22:00 08/19/24 21:03 Diltiazem 30 Mg Tablet PO 09/14/24 21:59 30 mg TID ASHWIN Administration Diltiazem HCl 120 mg 08/20/24 09:00 Diltiazem Cd 120 Mg Capcr PO 09/19/24 08:59 QDAY ASHWIN Glucagon 1 mg 08/09/24 15:31 Glucagon Inj 1 Mg Vial IM Q15MIN PRN BG <70, and no IV access Heparin Sodium (Porcine) 3,000 unit 08/12/24 15:11 08/19/24 11:11 Heparin Sod Inj 1000 Unit/Ml Vial 10 Ml INDWELLCAT 08/26/24 15:10 3,000 unit PRN PRN Administration DIALYSIS Albumin Human 25 gm in 100 mls @ 100 mls/min 08/12/24 15:11 08/15/24 14:00 Albuminar-25 Ivpb IV Infused PRN PRN Infusion DIALYSIS Ampicillin Sodium/Sulbactam 100 mls @ 200 mls/hr 08/17/24 21:00 08/19/24 20:55 Sodium 3 gm/ Sodium Chloride IV 08/20/24 11:59 200 mls/hr Q12HR ASHWIN Administration Protocol Insulin Glargine 18 unit 08/19/24 09:00 08/19/24 09:43 Insulin Glargine (Lantus) 5 Unit/0.05 Ml (Per 5 Units) SC 09/18/24 08:59 Not Given QDAY ASHWIN Insulin Human Lispro 0 unit 08/16/24 18:00 08/20/24 07:35 Insulin Lispro (Admelog) 1 Unit/0.01 Ml Unit SC 09/15/24 17:59 8 unit ACHS ASHWIN Administration Protocol Levalbuterol HCl 0.63 mg 08/19/24 15:57 Levalbuterol Rt 0.63 Mg/3 Ml Nebu INH 09/12/24 19:14 Q6HRRT PRN sob or wheeze Midodrine 10 mg 08/14/24 14:00 08/17/24 14:30 Midodrine 5 Mg Tablet PO 09/13/24 13:59 Not Given TID ASHWIN Mirtazapine 45 mg 08/09/24 21:00 08/19/24 20:54 Mirtazapine 15 Mg Tablet PO 09/08/24 20:59 45 mg HS ASHWIN Administration Ondansetron HCl 4 mg 08/09/24 15:20 Ondansetron Inj 2 Mg/Ml Inj 2 Ml IV 09/08/24 15:19 Q6H PRN NAUSEA OR VOMITING Protocol Paroxetine HCl 20 mg 08/14/24 21:00 08/19/24 20:54 Paroxetine Hcl 10 Mg Tablet PO 09/13/24 20:59 20 mg HS ASHWIN Administration Pharmacy Consult 1 each 08/11/24 20:59 Pharmacy Renal Dose Adjustment 1 Ea XX 09/10/24 20:58 PRN PRN CONSULT Risperidone 3 mg 08/14/24 21:00 08/19/24 20:54 Risperidone 1 Mg Tablet PO 09/13/24 20:59 3 mg HS ASHWIN Administration Rivaroxaban 20 mg 08/19/24 09:00 08/19/24 09:43 Rivaroxaban 10 Mg Tablet PO 09/18/24 08:59 Not Given QDAY ASHWIN Sevelamer Carbonate 800 mg 08/17/24 08:00 08/19/24 16:54 Sevelamer Carbonate 800 Mg Tablet PO 09/16/24 07:59 800 mg TIDWM ASHWIN Administration Tamsulosin HCl 0.4 mg 08/09/24 16:00 08/19/24 09:44 Tamsulosin Hcl 0.4 Mg Capsule PO 09/08/24 15:59 Not Given QDAY ASHWIN Topiramate 50 mg 08/09/24 21:00 08/13/24 22:46 Topiramate 25 Mg Tablet PO 09/08/24 20:59 Not Given HS ASHWIN Plan Assessment Andrew is a 64 y/o male with past medical history of hypertension, hyperlipidemia, CAD, type 2 diabetes insulin-dependent, CHF, A-fib (on Eliquis 5mg twice daily), history of seizures who is currently admitted into the ICU for acute hypoxic hypercarbic respiratory failure requiring intubation and likely septic shock secondary to influenza A. #Afib with RVR, on home Eliquis [id number] HAS-BLED: 1 AC:Has home Eliquis Plan: ?Continue with Cardizem 120 mg CD ?Please restart amiodarone drip and oral amio 200 mg bid if HR is high and BP low, however AST/ALT have been downtrending ?Heparin drip held for dialysis catheter insertion ?Keep potassium between 4 and 5 and magnesium greater than 2.0 at all times. ?Recommend to continue to monitor on telemetry ?Continue dialysis with goal of atleast 3L /day if BP permits and additional sessions if pt can tolerate ?Continue CPAP every night #Septic shock secondary to, (improving) #Influenza A #? Superimposed bacterial infection Influenza A positive Pt currently has A line at this time Blood cultures NG2D, sputum and MRSA negative Off pressors Patient has finished Tamiflu Plan: -Continue Unasyn #Hx of CAD #Acute exacerbation of HFpEF with diastolic dysfunction #Mild aortic stenosis #NSTEMI type II, likely related to demand ischemia , resolved Echo shows EF 55-60%, normal LV, mild LVH, dilated RV, IVC dilated, AV stenosis Troponins have peaked No urine output past 24 hours, BUN/Cr 6 and 5.6 respectively Patient should get at least 3 L removed each session and additional sessions if blood pressure tolerates As patient still able to make urine, we recommend diuresis at some point Plan: -Patient is still fluid overloaded significantly, nephrology has been on board and continue dialysis. ?We recommend diuresis with Bumex if pt is able to produce urine ? Dialysis catheter insertion today #IDDM #Hyperlipidemia #Hypertension Total Cholesterol: 83 LDL:30 A1c 7.1 Plan: Consider resuming home blood pressure medicines at some point as blood pressure tolerates Resumed home Rosuvastatin Primary team to handle BG #Acute hypoxic hypercarbic respiratory failure, improving #Respiratory acidosis, improving #Hx of COPD #OHS Plan: -CPAP at night -Pulmonary hygiene -Chest physiotherapy -Continue levalbuterol #ESRD, on HD #ARIANA, prerenal #Shock liver #History of depression #History of seizures #Normocytic Anemia #Mild Hyponatremia Hypo-osmolar, Hypervolemic Above managed by primary hospitalist team Patient seen and care discussed with my attending physician, Dr. Karrie Merritt, PGY-1 Attending Provider Attestation/Addendum I have personally seen and examined the patient separately on the above date of service and discussed the plan of care with the resident. I reviewed the resident Dr. Gaming consultation progress note and agree with the resident findings and plan in the note above and have also edited the documentation to reflect my findings and plan. Nacho Yoon M.D. Interventional Cardiology
[2024-08-20] MEDS: SEVELAMER CARBONATE 800 MG TABLET PO ×3 (08:21→16:52)
[2024-08-20] MEDS: ASPIRIN EC 81 MG TABEC PO (08:21)
[2024-08-20] MEDS: TAMSULOSIN HCL 0.4 MG CAPSULE PO (08:21)
[2024-08-20] MEDS: DILTIAZEM CD 120 MG CAPCR PO (08:21)
[2024-08-20] MEDS: INSULIN GLARGINE (Lantus) 5 UNIT/0.05 ML (PER 5 UNITS) 18 UNIT SC (08:21)
[2024-08-20] MEDS: RIVAROXABAN 10 MG TABLET 20 MG PO (08:21)
--- NOTE | 2024-08-20 08:28 | PC.SS ---
SS follow up note; SS contacted JOHN in [place] and spoke to Jasmyne, Chair time is for , Sat from 11-2PM. Patient will have first dialysis session on Friday.
[2024-08-20] MEDS: AMPICILLIN/SULBAC INJ 3 GM in SODIUM CHLORIDE 0.9% 100 ML IV (08:58)
--- NOTE | 2024-08-20 11:43 | PD.RESPRO ---
Documentation for date of: 08/20/24 Subjective Subjective Interval history: Andrew Bella is a 64-year-old male with a past medical history of hypertension, hyperlipidemia, CAD, insulin-dependent type 2 diabetes mellitus, CHF, A-fib, depression, and history of seizures who recently moved from [place] and initially presented to ED on 08/09 with dyspnea and productive cough with associated pleuritic chest pain, cough, wheezing, and weakness. Also noted to have bilateral lower extremity edema and orthopnea, but denied paroxysmal nocturnal dyspnea. In ED, vitals significant for temperature of 100.8 ?F and on room air. Labs showed BUN 29, 1.6, GFR 48, glucose 228, LDH 256, BNP 275, UA 4+ glucose, U tox negative. Influenza A positive. Patient subsequently started on Tamiflu as well as Lasix for possible CHF exacerbation. Throughout hospital course, on 08/10 patient has had 2 rapid responses very well for desaturation requiring BiPAP and IV steroids/antibiotics and the second for hypoxia with altered mentation, requiring intubation for airway protection prompting transfer to ICU for further care. Around time of intubation, ABG showed pH 6.97, pCO2 97. MAP noted to drop below 65 and was started on Levophed and vasopressin. Cardiology consulted for further evaluation of possible CHF exacerbation and A-fib. Although unable to determine baseline renal function, creatinine increased from 1.8 to 2.9 overnight and so nephrology was consulted. Given that patient is intubated, history obtained from chart review. 08/11: Patient seen and examined in ICU, intubated and undergoing cooling measures for fever of 103.1 ?F. Creatinine noted to jump from 1.8 to 2.9 overnight. Suspect acute tubular necrosis in setting of hypotension with MAP less than 65 mmHg noted on 08/10. Also associated increase in lactic acid from 2.2 to 4.6 as well as overnight increase in LFTs (AST 17 to 553 and AST from 10 to 54). Will follow-up on urine studies as well as renal ultrasound. 08/12: Patient seen and examined in ICU, intubated and ventilated. Labs and orders reviewed. Na 129, BUN 67, Cr steadily increasing to 4.0, Ca 8.2. LFTs remain elevated (AST 423, ALT 364). Produced less than 20 cc of urine overnight. Still pending urine studies. Vancomycin changed to linezolid, continuing azithromycin and Zosyn. CTA chest: Bilateral pneumonia with arts pattern. Repeat CXR showed worsening of pneumonia and ARDS. DC'd IV steroids and amlodipine. Vas-Cath placed for hemodialysis. 08/13: Patient seen and examined in ICU, inbutaed and ventilated. Labs and orderse reviewed. Na stable at 129, BUN 66 and Cr again increased from 4.0 to 4.2. LFTs continue to uptrend (AST 688, ALT 597). Patient was given bumex x1 yesterday but had minimal urine output and so he underwent a session of dialysis for two hours with plans for hemodialysis again today. 08/14: Currently seen in ICU. Remains on ventilator and pressors. Blood pressure 123/76, heart rate 105. WBC 11.3, hemoglobin 10, platelets 158. Sodium 131, potassium 4, BUN 58, creatinine 4, total bilirubin 1.4, AST 778, ALT 752, alk phos 42, total protein 5.8, ammonia level 18, albumin 3.3. Abdominal x-ray showed no air in distended stomach. Chest x-ray showed extensive bilateral pneumonia with fluid overload. 08/15: Currently seen in ICU. Remains on ventilator. Blood sugar 123. Blood pressure 107/67, heart rate 110 to 130. WBC 11.9, hemoglobin 10, platelets 171. ABG showing pH 7.47, pCO2 29, pO2 193, bicarbonate 22.Sodium 133, potassium 3.8, bicarbonate 23.4, BUN 52, creatinine 4.3, calcium 9, phosphorus 3.8, AST 455, ALT 669, total bilirubin 1.3, albumin 3.1 Chest x-ray showed extensive bilateral pneumonia with fluid overload. Will receive extra session of dialysis today. Goal will be to increase bicarbonate for compensation for respiratory acidosis. 08/16: Seen and examined in ICU. Per ICU team, possible trial for extubation today and will plan for hemodialysis afterwards. Vitals stable, currently on mechanical ventilation, no longer on pressors other than midodrine. WBC downtrending from 12 to 10.8, hemoglobin stable at 10. ABG showing pH 7.33, pCO2 50, pO2 149. Na 135, K 3.9, BUN 51, Cr increased from 3.7 to 4.5, phosphorus increased from 3.8 to 6.3. LFTs improving, AST 142 and ALT 446. 08/17: Seen and examined while undergoing dialysis and tolerating well. Successfully extubated and downgraded to floors yesterday. Denies shortness of breath, chest pain, fever, chills, muscle aches/pains. WBC downtrending, hemoglobin stable, and LFTs also downtrending. However, renal function remains decreased despite daily dialysis with creatinine increasing from 4.5 to 5.6, BUN increasing from 51 to 65, phosphorus from 6.3 to 6.1. 08/18: Seen and examined in telemetry, resting comfortably in bed and states that he continues to feel overall better. No acute overnight events. Continues to be on 4 L NC and saturating 99%, otherwise vitals stable. WBC now wnl, hemoglobin stable at 10.2. Na borderline low at 135, renal function improved (BUN decreased from 65 to 53 and Cr decreased from 5.6 to 5.0). Phos decreasing from 6.1 to 5.5 on Sevelamer. Will undergo hemodialysis today with arrangements being made for outpatient dialysis as well. PPD already ordered, ordered HIV and hepatitis panels today. 08/19: Seen and examined at bedside while undergoing dialysis, tolerating well. No acute overnight events. Denies shortness of breath, chest pain, fever, chills, nausea/vomiting. HIV and hepatitis panel negative, still pending PPD read (due in evening today). 08/20: Seen and examined at bedside in telemetry. No acute overnight events. Denies shortness of breath, chest pain, fever, chills, nausea/vomiting. PPD pending read later today. Informed patient that his outpatient dialysis schedule will be /Fri with plans for his next dialysis session being tomorrow. Hemoglobin stable at 10.8, WBC downtrending to 10.8, and plt wnl. Na 134, K 3.8, and BUN slightly increased from 52 to 56, and creatinine increased from 4.9 to 5.5. Exam Vital Signs Temp Pulse Resp BP Pulse Ox O2 Del Method O2 Flow Rate 96.6 F L 89 18 141/95 H 99 Nasal Cannula 1 08/20/24 08:00 08/20/24 09:04 08/20/24 09:04 08/20/24 08:21 08/20/24 09:04 08/20/24 08:00 08/20/24 09:04 FiO2 30 08/19/24 12:00 Narrative Exam General: extubated, breathing comfortably on NC, AOx3, no acute distress, able to speak full sentences HEENT: NC/AT, mucous membranes moist, bilateral sclera anicteric Cardiovascular: systolic murmur appreciated, S1/S2 present Pulmonary: mild crackles heard at bases Abdominal: obese, bowel sounds present, non-tender Musculoskeletal: 2+ bilateral lower extremity edema Skin: purple discoloration in bilateral lower extremities, intact Objective Labs 08/21/24 04:39 08/21/24 04:39 ABG Interpretation ABG results: 08/10/24 08/10/24 08/10/24 11:34 13:55 16:46 ABG pH 7.21 L 6.97 L* D 6.99 L* ABG pCO2 49 H 95 H* D 78 H* D ABG pO2 60 L 64 L 41 L* D ABG HCO3 20 22 19 L ABG O2 Saturation 86 L 80 L 58 L ABG Base Excess -8 L -12 L -14 L VBG pH VBG pCO2 VBG pO2 VBG Base Excess 08/10/24 08/10/24 08/10/24 19:28 20:48 21:13 ABG pH 7.01 L* Cancelled 7.08 L* ABG pCO2 75 H* Cancelled 69 H ABG pO2 47 L* Cancelled 61 L ABG HCO3 19 L Cancelled 20 ABG O2 Saturation 72 L Cancelled 87 L ABG Base Excess -13 L Cancelled -11 L VBG pH VBG pCO2 VBG pO2 VBG Base Excess 08/11/24 08/11/24 08/11/24 00:34 04:08 14:56 ABG pH 7.14 L* 7.16 L* 7.17 L* ABG pCO2 60 H 54 H 50 H ABG pO2 83 D 114 H D 72 L D ABG HCO3 20 19 L 18 L ABG O2 Saturation 96 99 H 93 ABG Base Excess -10 L -10 L -10 L VBG pH VBG pCO2 VBG pO2 VBG Base Excess 08/11/24 08/11/24 08/12/24 20:05 23:14 02:06 ABG pH 7.20 L 7.25 L 7.27 L ABG pCO2 55 H 49 H 50 H ABG pO2 82 L 93 90 ABG HCO3 21 22 23 ABG O2 Saturation 96 98 98 ABG Base Excess -7 L -6 L -4 L VBG pH VBG pCO2 VBG pO2 VBG Base Excess 08/12/24 08/12/24 08/12/24 06:30 10:13 10:45 ABG pH 7.34 L 7.31 L ABG pCO2 41 42 ABG pO2 177 H D 134 H D ABG HCO3 22 21 ABG O2 Saturation 100 H 100 H ABG Base Excess -4 L -5 L VBG pH 7.30 L VBG pCO2 43 VBG pO2 53 VBG Base Excess -5 L 08/12/24 08/12/24 08/13/24 14:10 19:57 04:27 ABG pH 7.33 L 7.35 7.35 ABG pCO2 40 41 40 ABG pO2 114 H D 103 95 ABG HCO3 21 23 22 ABG O2 Saturation 99 H 99 H 98 ABG Base Excess -5 L -3 -4 L VBG pH VBG pCO2 VBG pO2 VBG Base Excess 08/13/24 08/13/24 08/13/24 20:14 21:45 23:54 ABG pH 7.26 L 7.26 L 7.26 L ABG pCO2 61 H D 60 H 59 H ABG pO2 84 201 H D 151 H D ABG HCO3 27 H 27 H 27 H ABG O2 Saturation 96 100 H 100 H ABG Base Excess -1 -1 -1 VBG pH VBG pCO2 VBG pO2 VBG Base Excess 08/14/24 08/14/24 08/15/24 02:49 18:04 06:30 ABG pH 7.39 D 7.32 L 7.47 H D ABG pCO2 41 D 53 H D 29 L D ABG pO2 292 H D 204 H D 193 H ABG HCO3 25 27 H 22 ABG O2 Saturation 101 H 100 H 99 H ABG Base Excess 0 0 -1 VBG pH VBG pCO2 VBG pO2 VBG Base Excess 08/16/24 04:14 ABG pH 7.33 L D ABG pCO2 50 H D ABG pO2 149 H D ABG HCO3 26 ABG O2 Saturation 100 H ABG Base Excess 0 VBG pH VBG pCO2 VBG pO2 VBG Base Excess Quality Measures Quality Measures VTE prophylaxis Assessment & Plan Assessment Current Active Medications: Generic Name Dose Route Start Last Admin Trade Name Freq PRN Reason Stop Dose Admin Acetaminophen 650 mg 08/11/24 08:37 Acetaminophen 325 Mg Tablet PO 09/10/24 05:56 Q6HR PRN FEVER >101 Aspirin 81 mg 08/11/24 09:00 08/20/24 08:21 Aspirin Ec 81 Mg Tabec PO 09/10/24 08:59 81 mg QDAY ASHWIN Administration Rosuvastatin 20 Mg 0 ea 08/09/24 21:00 08/13/24 22:47 PO 09/08/24 20:59 Not Given HS ASHWIN Dextrose 25 ml 08/09/24 15:31 Dextrose 50%-Water Inj 50 Ml Syringe IV 09/08/24 15:30 Q15MIN PRN BG 50-70 responsive npo pt Dextrose 50 ml 08/09/24 15:31 08/12/24 04:24 Dextrose 50%-Water Inj 50 Ml Syringe IV 09/08/24 15:30 50 ml Q15MIN PRN Administration BG <50 OR BG <70 & pt unresponsive Diltiazem HCl 30 mg 08/15/24 22:00 08/19/24 21:03 Diltiazem 30 Mg Tablet PO 09/14/24 21:59 30 mg TID ASHWIN Administration Diltiazem HCl 120 mg 08/20/24 09:00 08/20/24 08:21 Diltiazem Cd 120 Mg Capcr PO 09/19/24 08:59 120 mg QDAY ASHWIN Administration Glucagon 1 mg 08/09/24 15:31 Glucagon Inj 1 Mg Vial IM Q15MIN PRN BG <70, and no IV access Heparin Sodium (Porcine) 3,000 unit 08/12/24 15:11 08/19/24 11:11 Heparin Sod Inj 1000 Unit/Ml Vial 10 Ml INDWELLCAT 08/26/24 15:10 3,000 unit PRN PRN Administration DIALYSIS Albumin Human 25 gm in 100 mls @ 100 mls/min 08/12/24 15:11 08/15/24 14:00 Albuminar-25 Ivpb IV Infused PRN PRN Infusion DIALYSIS Ampicillin Sodium/Sulbactam 100 mls @ 200 mls/hr 08/17/24 21:00 08/20/24 08:58 Sodium 3 gm/ Sodium Chloride IV 08/20/24 11:59 200 mls/hr Q12HR ASHWIN Administration Protocol Insulin Glargine 18 unit 08/19/24 09:00 08/20/24 08:21 Insulin Glargine (Lantus) 5 Unit/0.05 Ml (Per 5 Units) SC 09/18/24 08:59 18 unit QDAY ASHWIN Administration Insulin Human Lispro 0 unit 08/16/24 18:00 08/20/24 11:33 Insulin Lispro (Admelog) 1 Unit/0.01 Ml Unit SC 09/15/24 17:59 6 unit ACHS ASHWIN Administration Protocol Levalbuterol HCl 0.63 mg 08/19/24 15:57 Levalbuterol Rt 0.63 Mg/3 Ml Nebu INH 09/12/24 19:14 Q6HRRT PRN sob or wheeze Magnesium Hydroxide 30 ml 08/20/24 10:16 Milk Of Magnesia Susp 30 Ml Udc PO 09/19/24 10:15 QDAY PRN CONSTIPATION Protocol Midodrine 10 mg 08/14/24 14:00 08/17/24 14:30 Midodrine 5 Mg Tablet PO 09/13/24 13:59 Not Given TID ASHWIN Mirtazapine 45 mg 08/09/24 21:00 08/19/24 20:54 Mirtazapine 15 Mg Tablet PO 09/08/24 20:59 45 mg HS ASHWIN Administration Ondansetron HCl 4 mg 08/09/24 15:20 Ondansetron Inj 2 Mg/Ml Inj 2 Ml IV 09/08/24 15:19 Q6H PRN NAUSEA OR VOMITING Protocol Paroxetine HCl 20 mg 08/14/24 21:00 08/19/24 20:54 Paroxetine Hcl 10 Mg Tablet PO 09/13/24 20:59 20 mg HS ASHWIN Administration Pharmacy Consult 1 each 08/11/24 20:59 Pharmacy Renal Dose Adjustment 1 Ea XX 09/10/24 20:58 PRN PRN CONSULT Risperidone 3 mg 08/14/24 21:00 08/19/24 20:54 Risperidone 1 Mg Tablet PO 09/13/24 20:59 3 mg HS ASHWIN Administration Rivaroxaban 20 mg 08/19/24 09:00 08/20/24 08:21 Rivaroxaban 10 Mg Tablet PO 09/18/24 08:59 20 mg QDAY ASHWIN Administration Sennosides 1 tab 08/20/24 10:16 Senna Tablet PO 09/19/24 10:15 QDAY PRN CONSTIPATION Protocol Sevelamer Carbonate 800 mg 08/17/24 08:00 08/20/24 11:33 Sevelamer Carbonate 800 Mg Tablet PO 09/16/24 07:59 800 mg TIDWM ASHWIN Administration Tamsulosin HCl 0.4 mg 08/09/24 16:00 08/20/24 08:21 Tamsulosin Hcl 0.4 Mg Capsule PO 09/08/24 15:59 0.4 mg QDAY ASHWIN Administration Topiramate 50 mg 08/09/24 21:00 08/13/24 22:46 Topiramate 25 Mg Tablet PO 09/08/24 20:59 Not Given HS ASHWIN Plan Andrew Bella is a 64-year-old male with a past medical history of hypertension, hyperlipidemia, CAD, insulin-dependent type 2 diabetes mellitus, CHF, A-fib, depression, and history of seizures who initially presented to ED on 08/09 with dyspnea and productive cough with associated pleuritic chest pain, admitted for management of influenza PNA vs CHF exacerbation. Upgraded on 08/10 for airway protection requiring intubation and extubated and downgraded on 08/16. Nephrology consulted in setting of acute kidney injury and acute tubular necrosis. #Acute kidney injury #Acute tubular necrosis Renal US showed mild bilateral renal parenchymal scar formation without hydronephrosis. Plan of care discussed with the dialysis nurse. Please see dialysis flowsheet for further details. ? Status-post placement of permanent TDC, 08/18 ? Outpatient dialysis chair ready with schedule being T//Fri ? Planning for outpatient dialysis ? Hepatitis and HIV panel negative ? Pending PPD read later today ? Avoid nephrotoxic agents ? Renally dose medications #Hyperphosphatemia ? Sevelamer 800 mg PO TID #Acute metabolic encephalopathy, resolved #History of seizures #Shock, resolved #HFpEF (EF 55 to 60%) #Atrial fibrillation #Transaminitis, improving #Hypertension #Hyperlipidemia #CAD #Acute hypoxic/hypercapnic respiratory failure, secondary to #Influenza A pneumonia #COPD #Type 2 diabetes mellitus, insulin-dependent ? Continue management per ICU team ----- Plan discussed with attending physician Dr. Jean-Claude Khan MD PGY-1 Internal Medicine Attending Provider Attestation/Addendum Patient seen and examined with resident physician Dr. Angel. Note reviewed, agree with findings and recommendations. s/p permanent dialysis catheter and outpatient dialysis arrangements done-TTS. Patient will receive dialysis tomorrow and postdialysis can be discharged from renal standpoint.
[2024-08-20 13:18] LABS: Basophils % (Auto) 0 % (0-2.5); Eosinophils # (Auto) 0.1 Thou/mm3 (0.0-0.5); Eosinophils % (Auto) 1 % (0-10); Hematocrit 33.5 % (41.0-53.0); Hemoglobin 10.8 g/dL (13.5-16.0); Immature Granulocytes % (Auto) 4 % (0-0); Immature Granulocytes Auto 0.44 Thou/mm3 (0.00-0.00); Lymphocytes # (Auto) 1.2 Thou/mm3 (1.0-4.8); Lymphocytes % (Auto) 11 % (10-50); Mean Corpuscular HGB Conc 32.2 g/dl (31.0-37.0); Mean Corpuscular Hemoglobin 27.3 pg (25.0-35.0); Mean Corpuscular Volume 85 fL (80-100); Monocytes # (Auto) 0.9 Thou/mm3 (0.0-0.8); Monocytes % (Auto) 8 % (0-12); Neutrophils # (Auto) 8.2 Thou/mm3 (1.8-7.7); Neutrophils % (Auto) 76 % (37-80); Nucleated Red Blood Cell % 0 /100 WBC (0); Platelet Count 276 Thou/mm3 (140-440); RDW Standard Deviation 47.7 fL (35.1-43.9); Red Blood Count 3.95 Miln/mm3 (4.50-5.90); White Blood Count 10.8 Thou/mm3 (3.8-10.6)
--- NOTE | 2024-08-20 13:37 | ESPR_ITS ---
<Statement entered by Daniel Cox MD - 08/20/24 17:08> Patient was seen and examined at the bedside. Patient is currently doing well and was AOx3 on the bedside. He reported that he has generalized weakness. Patient already has SNF authorization and currently awaiting dialysis tomorrow per schedule and will be discharge tomorrow morning. Labs were consistent with ESRD pattern. Blood pressure remained stable. Rest of the labs unremarkable. All labs and orders were reviewed. I saw and examined the patient, and I agree with current management stated by Dr Salina MD,PGY1. Plan of care was discussed with the attending physician and resident physician. Disclaimer: Despite multiple revisions, due to the dictation software being used, the document bellow may not be free of grammatical errors including phonetic/typographic errors. However, this does not deter from our commitment to providing health care in the patient's best interest in mind. Dr. Brooke MD, PGY 2 Documentation for date of: 08/20/24 Subjective Subjective Interval history: No overnight events. Patient seen and examined at bedside. Patient resting comfortably. Patient saturating well on room air. No specific complaints at this time. Unasyn completed today. Plan to DC tomorrow after dialysis. Exam Vital Signs Temp Pulse Resp BP Pulse Ox O2 Del Method O2 Flow Rate 96.6 F L 89 18 141/95 H 99 Nasal Cannula 1 08/20/24 08:00 08/20/24 09:04 08/20/24 09:04 08/20/24 08:21 08/20/24 09:04 08/20/24 08:00 08/20/24 09:04 FiO2 30 08/19/24 12:00 Narrative Exam General: AAOx3 morbidly obese man, bearded male HEENT: Moist mucous membranes, conjunctiva clear, EOMI,skin tags present Cardiovascular: Pansystolic murmur ausculated upon mitral valve and R sternal border, no carotid bruit appreciated, radial pulses +2 bilat, irregularly irregular but regular rate Pulmonary: Diffuse expiratory wheezing, improved. Poor lung sounds due to body habitus. GI: No ascites noted, bowel sounds present, no tenderness Extremities: venous stasis with stasis dermatitis, unkempt feet, +3 pitting edema bilateral lower extremity Neuro: AAOx3, no focal motor or sensory deficits Objective Labs 08/21/24 04:39 08/21/24 04:39 Labs: Laboratory Results - last 24 hr 08/20/24 12:35 WBC 10.8 H RBC 3.95 L Hgb 10.8 L Hct 33.5 L MCV 85 MCH 27.3 MCHC 32.2 RDW Std Deviation 47.7 H Plt Count 276 D Neut % (Auto) 76 Lymph % (Auto) 11 [place] % (Auto) 8 Eos % (Auto) 1 Baso % (Auto) 0 Neut # (Auto) 8.2 H Lymph # (Auto) 1.2 [place] # (Auto) 0.9 H Eos # (Auto) 0.1 Baso # (Auto) 0.0 Immature Gran # (Auto) 0.44 H Absolute Nucleated RBC 0.00 Immature Gran % 4 H Nucleated RBC % 0 ABG Interpretation ABG results: 08/10/24 08/10/24 08/10/24 11:34 13:55 16:46 ABG pH 7.21 L 6.97 L* D 6.99 L* ABG pCO2 49 H 95 H* D 78 H* D ABG pO2 60 L 64 L 41 L* D ABG HCO3 20 22 19 L ABG O2 Saturation 86 L 80 L 58 L ABG Base Excess -8 L -12 L -14 L VBG pH VBG pCO2 VBG pO2 VBG Base Excess 08/10/24 08/10/24 08/10/24 19:28 20:48 21:13 ABG pH 7.01 L* Cancelled 7.08 L* ABG pCO2 75 H* Cancelled 69 H ABG pO2 47 L* Cancelled 61 L ABG HCO3 19 L Cancelled 20 ABG O2 Saturation 72 L Cancelled 87 L ABG Base Excess -13 L Cancelled -11 L VBG pH VBG pCO2 VBG pO2 VBG Base Excess 08/11/24 08/11/24 08/11/24 00:34 04:08 14:56 ABG pH 7.14 L* 7.16 L* 7.17 L* ABG pCO2 60 H 54 H 50 H ABG pO2 83 D 114 H D 72 L D ABG HCO3 20 19 L 18 L ABG O2 Saturation 96 99 H 93 ABG Base Excess -10 L -10 L -10 L VBG pH VBG pCO2 VBG pO2 VBG Base Excess 08/11/24 08/11/24 08/12/24 20:05 23:14 02:06 ABG pH 7.20 L 7.25 L 7.27 L ABG pCO2 55 H 49 H 50 H ABG pO2 82 L 93 90 ABG HCO3 21 22 23 ABG O2 Saturation 96 98 98 ABG Base Excess -7 L -6 L -4 L VBG pH VBG pCO2 VBG pO2 VBG Base Excess 08/12/24 08/12/24 08/12/24 06:30 10:13 10:45 ABG pH 7.34 L 7.31 L ABG pCO2 41 42 ABG pO2 177 H D 134 H D ABG HCO3 22 21 ABG O2 Saturation 100 H 100 H ABG Base Excess -4 L -5 L VBG pH 7.30 L VBG pCO2 43 VBG pO2 53 VBG Base Excess -5 L 08/12/24 08/12/24 08/13/24 14:10 19:57 04:27 ABG pH 7.33 L 7.35 7.35 ABG pCO2 40 41 40 ABG pO2 114 H D 103 95 ABG HCO3 21 23 22 ABG O2 Saturation 99 H 99 H 98 ABG Base Excess -5 L -3 -4 L VBG pH VBG pCO2 VBG pO2 VBG Base Excess 08/13/24 08/13/24 08/13/24 20:14 21:45 23:54 ABG pH 7.26 L 7.26 L 7.26 L ABG pCO2 61 H D 60 H 59 H ABG pO2 84 201 H D 151 H D ABG HCO3 27 H 27 H 27 H ABG O2 Saturation 96 100 H 100 H ABG Base Excess -1 -1 -1 VBG pH VBG pCO2 VBG pO2 VBG Base Excess 08/14/24 08/14/24 08/15/24 02:49 18:04 06:30 ABG pH 7.39 D 7.32 L 7.47 H D ABG pCO2 41 D 53 H D 29 L D ABG pO2 292 H D 204 H D 193 H ABG HCO3 25 27 H 22 ABG O2 Saturation 101 H 100 H 99 H ABG Base Excess 0 0 -1 VBG pH VBG pCO2 VBG pO2 VBG Base Excess 08/16/24 04:14 ABG pH 7.33 L D ABG pCO2 50 H D ABG pO2 149 H D ABG HCO3 26 ABG O2 Saturation 100 H ABG Base Excess 0 VBG pH VBG pCO2 VBG pO2 VBG Base Excess Quality Measures Quality Measures VTE prophylaxis Assessment & Plan Assessment Current Active Medications: Generic Name Dose Route Start Last Admin Trade Name Freq PRN Reason Stop Dose Admin Acetaminophen 650 mg 08/11/24 08:37 Acetaminophen 325 Mg Tablet PO 09/10/24 05:56 Q6HR PRN FEVER >101 Aspirin 81 mg 08/11/24 09:00 08/20/24 08:21 Aspirin Ec 81 Mg Tabec PO 09/10/24 08:59 81 mg QDAY ASHWIN Administration Rosuvastatin 20 Mg 0 ea 08/09/24 21:00 08/13/24 22:47 PO 09/08/24 20:59 Not Given HS ASHWIN Dextrose 25 ml 08/09/24 15:31 Dextrose 50%-Water Inj 50 Ml Syringe IV 09/08/24 15:30 Q15MIN PRN BG 50-70 responsive npo pt Dextrose 50 ml 08/09/24 15:31 08/12/24 04:24 Dextrose 50%-Water Inj 50 Ml Syringe IV 09/08/24 15:30 50 ml Q15MIN PRN Administration BG <50 OR BG <70 & pt unresponsive Diltiazem HCl 30 mg 08/15/24 22:00 08/19/24 21:03 Diltiazem 30 Mg Tablet PO 09/14/24 21:59 30 mg TID ASHWIN Administration Diltiazem HCl 120 mg 08/20/24 09:00 08/20/24 08:21 Diltiazem Cd 120 Mg Capcr PO 09/19/24 08:59 120 mg QDAY ASHWIN Administration Glucagon 1 mg 08/09/24 15:31 Glucagon Inj 1 Mg Vial IM Q15MIN PRN BG <70, and no IV access Heparin Sodium (Porcine) 3,000 unit 08/12/24 15:11 08/19/24 11:11 Heparin Sod Inj 1000 Unit/Ml Vial 10 Ml INDWELLCAT 08/26/24 15:10 3,000 unit PRN PRN Administration DIALYSIS Albumin Human 25 gm in 100 mls @ 100 mls/min 08/12/24 15:11 08/15/24 14:00 Albuminar-25 Ivpb IV Infused PRN PRN Infusion DIALYSIS Insulin Glargine 18 unit 08/19/24 09:00 08/20/24 08:21 Insulin Glargine (Lantus) 5 Unit/0.05 Ml (Per 5 Units) SC 09/18/24 08:59 18 unit QDAY ASHWIN Administration Insulin Human Lispro 0 unit 08/16/24 18:00 08/20/24 11:33 Insulin Lispro (Admelog) 1 Unit/0.01 Ml Unit SC 09/15/24 17:59 6 unit ACHS ASHWIN Administration Protocol Levalbuterol HCl 0.63 mg 08/19/24 15:57 Levalbuterol Rt 0.63 Mg/3 Ml Nebu INH 09/12/24 19:14 Q6HRRT PRN sob or wheeze Magnesium Hydroxide 30 ml 08/20/24 10:16 Milk Of Magnesia Susp 30 Ml Udc PO 09/19/24 10:15 QDAY PRN CONSTIPATION Protocol Midodrine 10 mg 08/14/24 14:00 08/17/24 14:30 Midodrine 5 Mg Tablet PO 09/13/24 13:59 Not Given TID ASHWIN Mirtazapine 45 mg 08/09/24 21:00 08/19/24 20:54 Mirtazapine 15 Mg Tablet PO 09/08/24 20:59 45 mg HS ASHWIN Administration Ondansetron HCl 4 mg 08/09/24 15:20 Ondansetron Inj 2 Mg/Ml Inj 2 Ml IV 09/08/24 15:19 Q6H PRN NAUSEA OR VOMITING Protocol Paroxetine HCl 20 mg 08/14/24 21:00 08/19/24 20:54 Paroxetine Hcl 10 Mg Tablet PO 09/13/24 20:59 20 mg HS ASHWIN Administration Pharmacy Consult 1 each 08/11/24 20:59 Pharmacy Renal Dose Adjustment 1 Ea XX 09/10/24 20:58 PRN PRN CONSULT Risperidone 3 mg 08/14/24 21:00 08/19/24 20:54 Risperidone 1 Mg Tablet PO 09/13/24 20:59 3 mg HS ASHWIN Administration Rivaroxaban 20 mg 08/19/24 09:00 08/20/24 08:21 Rivaroxaban 10 Mg Tablet PO 09/18/24 08:59 20 mg QDAY ASHWIN Administration Sennosides 1 tab 08/20/24 10:16 Senna Tablet PO 09/19/24 10:15 QDAY PRN CONSTIPATION Protocol Sevelamer Carbonate 800 mg 08/17/24 08:00 08/20/24 11:33 Sevelamer Carbonate 800 Mg Tablet PO 09/16/24 07:59 800 mg TIDWM ASHWIN Administration Tamsulosin HCl 0.4 mg 08/09/24 16:00 08/20/24 08:21 Tamsulosin Hcl 0.4 Mg Capsule PO 09/08/24 15:59 0.4 mg QDAY ASHWIN Administration Topiramate 50 mg 08/09/24 21:00 08/13/24 22:46 Topiramate 25 Mg Tablet PO 09/08/24 20:59 Not Given HS ASHWIN Plan 64-year-old male with past medical history of hypertension, hyperlipidemia, coronary artery disease, type diabetes mellitus insulin-dependent, CHF, atrial fibrillation, history of seizures who was admitted to [facility] for management of CHF exacerbation and influenza A. Patient upgraded to ICU after emergent intubation post worsening of mentation and bedside aspiration with inability to protect airway. Successfully extubated, downgraded to floors for further management. #Acute renal failure secondary to ischemic ATN #Fluid overload Patient developed severe renal failure requiring dalysis in ICU. Patient has received multple rounds of dialysis. Outpatient dialysis being arranged, tunnelled cath placed succesfuly. -Continue inpatient dialysis -Will monitor renal function -Consulted pharmacy to dose medications renally -Avoid nephrotoxic agents -Savelamer #Acute hypoxic/hypercapnic respiratory failure, resolved #Influenza A, treated #Aspiration pneumonia, treat #COPD #Suspicion of obesity hypoventilation syndrome Patient was given Zosyn(08/10-08/13) , azithromycin, (08/10-08/12) linezolid (08/11-08/13) vancomycin (08/10-08/11), Tamiflu (08/09-08/14), Unasyn (08/13- 08/20) Treatment: -DuoNeb every 6 hours -BiPAP every night as needed #Atrial fibrillation with rapid ventricular response, rate controlled Treatment: -Continue Cardizem 120 mg Daily -Will consider digoxin for rate control if needed -Discontinued amiodarone due to concern of hepatotoxicity, will monitor heart rate -Cardiology following -Veto #Congestive heart failure, HFpEF EF 55 to 60% # Mild aortic stenosis, mitral stenosis Patient history as stated. Cardiology on board. -Monitor urine output -Continue scheduled dialysis as per nephro recommendations #History of seizures Patient has a past medical history of seizures, last seizure was several years ago and patient cannot recall but has been stable. Home medication topiramate 50 mg HS, will continue to hold. #Hypertension #Hyperlipidemia #History of coronary artery disease Has a past medical history of hyperlipidemia with a previous history of [place] approximately 5 years ago. Patient takes rosuvastatin 20 mg at bedtime, holding rosuvastatin due to hepatitis Patient has a past medical history of hypertension on losartan, held due acute kidney injury #Hepatitis 2/2 shock liver versus drug toxicity versus fluid overload Will continue to maintain mean arterial pressure >65 Discontinued amiodarone, topiramate Downtrending -Follow LFTs in AM #Type 2 diabetes mellitus, insulin-dependent # Hyperglycemia Patient has a past medical history of diabetes mellitus type 2 Home medication include Lantus 12 units, Januvia (Sitagliptin), Jardiance (Empagliflozin), and Ozempic. Diagnostic workup: Hemoglobin A1c 7.1 Difficulty controlling blood sugar, had to increase Lantus. -Lantus 18 units daily, sliding scale lispro #Septic shock secondary to aspiration pneumonia, resolved Patient initially admitted for septic shock, upgraded to ICU. Patient was extubated and downgraded to floors. #Acute metabolic encephalopathy, resolved Multifactorial: Acute hypoxic/hypercapnic respiratory failure, underlying acidosis, underlying sepsis, polypharmacy -Resume patient's home Remeron, Paxil DVT prophylaxis: Xarelto GI prophylaxis: None Diet: Carb consistent low, renal, fluid restriction Lines: Femoral line, peripheral IV Code status: Full code Plan of care discussed with senior resident Dr. Cox PGY?[address] Brennan. Xu Downing MD PGY-1 Attending Provider Attestation/Addendum I have examined the patient, reviewed labs and imaging findings, discussed the case with the resident(s), and reviewed entered orders. I agree with the plan of care as outlined in this note, with these additional summaries/recommendations: Patient seen at bedside. No acute overnight events. Patient reports he is feeling better. Patient will complete IV Unasyn course for aspiration pneumonia today. Continue Cardizem and Xarelto for atrial fibrillation. Rate controlled. Patient received tunneled dialysis catheter and will go for hemodialysis tomorrow and anticipate discharge this weekend. Continue basal and bolus insulin for diabetes mellitus type 2. Patient continues to have generalized weakness and psych social worker working on SNF placement. Repeat hematology and chemistry panel in AM. Dr. Brennan
[2024-08-20 13:43] LABS: Alanine Aminotransferase 113 U/L (10-49); Albumin, Serum 3.9 gm/dL (3.4-4.8); Albumin/Globulin Ratio 1.3 (1.2-2.2); Alkaline Phosphatase 41 U/L (46-116); Anion Gap 11 (7-16); Aspartate Amino Transferase 21 U/L (0-34); BUN/Creatinine Ratio 10 Ratio (12-20); Bilirubin,Total 0.9 mg/dL (0.3-1.2); Blood Urea Nitrogen 56 mg/dL (9-23); Calcium 8.5 mg/dL (8.3-10.6); Calcium (Corrected) 8.6 mg/dL (8.5-10.1); Carbon Dioxide 29.4 mMol/L (20.0-31.0); Chloride 94 mMol/L (98-107); Creatinine (Component) 5.5 mg/dL (0.6-1.3); Estimated Creatinine Clearance 21.4 mL/min (>60); Globulin 3.1 gm/dL (2.3-3.5); Glucose 96 mg/dL (74-106); Magnesium 2.5 mg/dL (1.6-2.6); Osmolality,Calculated 283 (275-295); Phosphorous 5.5 mg/dL (2.4-5.1); Potassium 3.8 mMol/L (3.4-5.1); Sodium 134 mMol/L (136-145); eGFR 11 See Note
[2024-08-20] MEDS: PARoxetine HCL 10 MG TABLET 20 MG PO (20:38)
[2024-08-20] MEDS: risperiDONE 1 MG TABLET 3 MG PO (20:38)
[2024-08-20] MEDS: MIRTAZAPINE 15 MG TABLET 45 MG PO (20:38)
[2024-08-20] MEDS: ACETAMINOPHEN 325 MG TABLET 650 MG PO (22:02)
[2024-08-20] MEDS: LIDOCAINE 5% 1 PATCH TOP (22:16)
[2024-08-21] VITALS (21 sets, daily range): BP systolic 110–171; BP diastolic 69–100; PULSE 62–104; RESP 15–99; TEMP 36.2–36.6; O2SAT 91–99; BMI 43.6
[2024-08-21 06:05] LABS: Basophils % (Auto) 0 % (0-2.5); Eosinophils # (Auto) 0.1 Thou/mm3 (0.0-0.5); Eosinophils % (Auto) 1 % (0-10); Hematocrit 31.2 % (41.0-53.0); Hemoglobin 10.2 g/dL (13.5-16.0); Immature Granulocytes % (Auto) 3 % (0-0); Lymphocytes # (Auto) 1.3 Thou/mm3 (1.0-4.8); Lymphocytes % (Auto) 13 % (10-50); Mean Corpuscular HGB Conc 32.7 g/dl (31.0-37.0); Mean Corpuscular Hemoglobin 27.3 pg (25.0-35.0); Mean Corpuscular Volume 83 fL (80-100); Monocytes # (Auto) 0.8 Thou/mm3 (0.0-0.8); Monocytes % (Auto) 8 % (0-12); Neutrophils # (Auto) 7.7 Thou/mm3 (1.8-7.7); Neutrophils % (Auto) 75 % (37-80); Nucleated Red Blood Cell % 0 /100 WBC (0); Platelet Count 315 Thou/mm3 (140-440); RDW Standard Deviation 48.2 fL (35.1-43.9); Red Blood Count 3.74 Miln/mm3 (4.50-5.90); White Blood Count 10.2 Thou/mm3 (3.8-10.6)
[2024-08-21 06:40] LABS: Alanine Aminotransferase 87 U/L (10-49); Albumin, Serum 3.7 gm/dL (3.4-4.8); Albumin/Globulin Ratio 1.2 (1.2-2.2); Alkaline Phosphatase 39 U/L (46-116); Anion Gap 13 (7-16); Aspartate Amino Transferase 20 U/L (0-34); BUN/Creatinine Ratio 11 Ratio (12-20); Bilirubin,Total 0.8 mg/dL (0.3-1.2); Blood Urea Nitrogen 66 mg/dL (9-23); Calcium 8.4 mg/dL (8.3-10.6); Calcium (Corrected) 8.6 mg/dL (8.5-10.1); Carbon Dioxide 25.6 mMol/L (20.0-31.0); Chloride 94 mMol/L (98-107); Estimated Creatinine Clearance 19.5 mL/min (>60); Glucose 191 mg/dL (74-106); Magnesium 2.6 mg/dL (1.6-2.6); Osmolality,Calculated 290 (275-295); Phosphorous 6.8 mg/dL (2.4-5.1); Potassium 3.9 mMol/L (3.4-5.1); Sodium 133 mMol/L (136-145); Total Protein 6.7 gm/dL (5.7-8.2); eGFR 10 See Note
[2024-08-21] MEDS: EPOETIN ALFA-EPBX INJ 10,000 UNIT/ML VIAL (ESRD) 10000 UNIT SC (09:08)
--- NOTE | 2024-08-21 09:40 | PD.NEPHPROG ---
Documentation for date of: 08/21/24 Subjective Subjective Interval history: Andrew Bella is a 64-year-old male with a past medical history of hypertension, hyperlipidemia, CAD, insulin-dependent type 2 diabetes mellitus, CHF, A-fib, depression, and history of seizures who recently moved from [place] and initially presented to ED on 08/09 with dyspnea and productive cough with associated pleuritic chest pain, cough, wheezing, and weakness. Also noted to have bilateral lower extremity edema and orthopnea, but denied paroxysmal nocturnal dyspnea. In ED, vitals significant for temperature of 100.8 ?F and on room air. Labs showed BUN 29, 1.6, GFR 48, glucose 228, LDH 256, BNP 275, UA 4+ glucose, U tox negative. Influenza A positive. Patient subsequently started on Tamiflu as well as Lasix for possible CHF exacerbation. Throughout hospital course, on 08/10 patient has had 2 rapid responses very well for desaturation requiring BiPAP and IV steroids/antibiotics and the second for hypoxia with altered mentation, requiring intubation for airway protection prompting transfer to ICU for further care. Around time of intubation, ABG showed pH 6.97, pCO2 97. MAP noted to drop below 65 and was started on Levophed and vasopressin. Cardiology consulted for further evaluation of possible CHF exacerbation and A-fib. Although unable to determine baseline renal function, creatinine increased from 1.8 to 2.9 overnight and so nephrology was consulted. Given that patient is intubated, history obtained from chart review. 08/13: Patient seen and examined in ICU, inbutaed and ventilated. Labs and orderse reviewed. Na stable at 129, BUN 66 and Cr again increased from 4.0 to 4.2. LFTs continue to uptrend (AST 688, ALT 597). Patient was given bumex x1 yesterday but had minimal urine output and so he underwent a session of dialysis for two hours with plans for hemodialysis again today. 08/15/2024 patient currently seen in ICU. Remains on the ventilator. Blood sugar 123. Blood pressure 107/67, heart rate from 1 10-1 30. WBC 11.9, hemoglobin 10, platelets 171. ABG showing pH 7.47, pCO2 29, pO2 193, bicarbonate 22.Sodium 133, potassium 3.8, bicarbonate 23.4, BUN 52, creatinine 4.3, calcium 9, phosphorus 3.8, AST 455, ALT 669, total bilirubin 1.3, albumin 3.1 Chest x-ray showed extensive bilateral pneumonia with fluid overload. Patient is going to get extra session of dialysis today goal will be to increase his bicarbonate for compensation for respiratory acidosis. 08/21/2024 patient currently seen in dialysis. Resting comfortably. Discharge planning postdialysis to rehab today. Denies any nausea, vomiting. Review of Systems Review of Systems Narrative Review of Systems: CONSTITUTIONAL: Patient denies any fever, chills. Complaining of fatigue HEENT: Denies any visual disturbances or hearing problems. CARDIOVASCULAR: Patient denies any chest pain.complaining of shortness of breath, swelling in the lower extremities. PULMONARY: Patient complaining of shortness of breath, cough. GASTROINTESTINAL: Patient denies any abdominal pain, constipation, nausea, vomiting, diarrhea. GENITOURINARY: Patient denies any urinary symptoms of burning or frequency or hematuria, denies any form in the urine. SKIN: Denies any rash. MUSCULOSKELETAL: Gait imbalance NEUROLOGICAL: Denies any neurological problems of strokes, seizures or confusion. Denies any memory problems. PSYCHIATRIC: Denies any depression or anxiety. LYMPHATICS : No lymphadenopathy Exam Vital Signs Temp Pulse Resp BP Pulse Ox O2 Del Method O2 Flow Rate 36.2 C 75 17 126/74 98 Nasal Cannula 2 08/21/24 08:00 08/21/24 09:30 08/21/24 08:00 08/21/24 09:30 08/21/24 08:00 08/21/24 08:00 08/21/24 08:00 FiO2 30 08/21/24 07:40 Narrative Exam General: extubated, breathing comfortably on NC, AOx3, no acute distress, able to speak full sentences. On dialysis HEENT: NC/AT, mucous membranes moist, bilateral sclera anicteric Cardiovascular: systolic murmur appreciated, S1/S2 present Pulmonary: mild crackles heard at bases Abdominal: obese, bowel sounds present, non-tender Musculoskeletal: 2+ bilateral lower extremity edema Skin: purple discoloration in bilateral lower extremities, intact IJ dialysis catheter noted Objective Labs 08/21/24 04:39 08/21/24 04:39 Labs: Laboratory Results - last 24 hr 08/20/24 08/21/24 12:35 04:39 WBC 10.8 H 10.2 RBC 3.95 L 3.74 L Hgb 10.8 L 10.2 L Hct 33.5 L 31.2 L MCV 85 83 MCH 27.3 27.3 MCHC 32.2 32.7 RDW Std Deviation 47.7 H 48.2 H Plt Count 276 D 315 D Neut % (Auto) 76 75 Lymph % (Auto) 11 13 [place] % (Auto) 8 8 Eos % (Auto) 1 1 Baso % (Auto) 0 0 Neut # (Auto) 8.2 H 7.7 Lymph # (Auto) 1.2 1.3 [place] # (Auto) 0.9 H 0.8 Eos # (Auto) 0.1 0.1 Baso # (Auto) 0.0 0.0 Immature Gran # (Auto) 0.44 H 0.30 H Absolute Nucleated RBC 0.00 0.00 Immature Gran % 4 H 3 H Nucleated RBC % 0 0 Sodium 134 L 133 L Potassium 3.8 D 3.9 Chloride 94 L 94 L Carbon Dioxide 29.4 25.6 Anion Gap 11 13 BUN 56 H 66 H Creatinine 5.5 H* D 6.0 H* D Estim Creat Clear Calc 21.4 L 19.5 L eGFR 11 L* 10 L* BUN/Creatinine Ratio 10 L 11 L Glucose 96 D 191 H D Calculated Osmolality 283 290 Calcium 8.5 8.4 Corrected Calcium 8.6 8.6 Phosphorus 5.5 H 6.8 H Magnesium 2.5 2.6 Total Bilirubin 0.9 0.8 AST 21 20 ALT 113 H 87 H Alkaline Phosphatase 41 L 39 L Total Protein 7.0 6.7 Albumin 3.9 3.7 Globulin 3.1 3.0 Albumin/Globulin Ratio 1.3 1.2 ABG Interpretation ABG results: 08/10/24 08/10/24 08/10/24 11:34 13:55 16:46 ABG pH 7.21 L 6.97 L* D 6.99 L* ABG pCO2 49 H 95 H* D 78 H* D ABG pO2 60 L 64 L 41 L* D ABG HCO3 20 22 19 L ABG O2 Saturation 86 L 80 L 58 L ABG Base Excess -8 L -12 L -14 L VBG pH VBG pCO2 VBG pO2 VBG Base Excess 08/10/24 08/10/24 08/10/24 19:28 20:48 21:13 ABG pH 7.01 L* Cancelled 7.08 L* ABG pCO2 75 H* Cancelled 69 H ABG pO2 47 L* Cancelled 61 L ABG HCO3 19 L Cancelled 20 ABG O2 Saturation 72 L Cancelled 87 L ABG Base Excess -13 L Cancelled -11 L VBG pH VBG pCO2 VBG pO2 VBG Base Excess 08/11/24 08/11/24 08/11/24 00:34 04:08 14:56 ABG pH 7.14 L* 7.16 L* 7.17 L* ABG pCO2 60 H 54 H 50 H ABG pO2 83 D 114 H D 72 L D ABG HCO3 20 19 L 18 L ABG O2 Saturation 96 99 H 93 ABG Base Excess -10 L -10 L -10 L VBG pH VBG pCO2 VBG pO2 VBG Base Excess 08/11/24 08/11/24 08/12/24 20:05 23:14 02:06 ABG pH 7.20 L 7.25 L 7.27 L ABG pCO2 55 H 49 H 50 H ABG pO2 82 L 93 90 ABG HCO3 21 22 23 ABG O2 Saturation 96 98 98 ABG Base Excess -7 L -6 L -4 L VBG pH VBG pCO2 VBG pO2 VBG Base Excess 08/12/24 08/12/24 08/12/24 06:30 10:13 10:45 ABG pH 7.34 L 7.31 L ABG pCO2 41 42 ABG pO2 177 H D 134 H D ABG HCO3 22 21 ABG O2 Saturation 100 H 100 H ABG Base Excess -4 L -5 L VBG pH 7.30 L VBG pCO2 43 VBG pO2 53 VBG Base Excess -5 L 08/12/24 08/12/24 08/13/24 14:10 19:57 04:27 ABG pH 7.33 L 7.35 7.35 ABG pCO2 40 41 40 ABG pO2 114 H D 103 95 ABG HCO3 21 23 22 ABG O2 Saturation 99 H 99 H 98 ABG Base Excess -5 L -3 -4 L VBG pH VBG pCO2 VBG pO2 VBG Base Excess 08/13/24 08/13/24 08/13/24 20:14 21:45 23:54 ABG pH 7.26 L 7.26 L 7.26 L ABG pCO2 61 H D 60 H 59 H ABG pO2 84 201 H D 151 H D ABG HCO3 27 H 27 H 27 H ABG O2 Saturation 96 100 H 100 H ABG Base Excess -1 -1 -1 VBG pH VBG pCO2 VBG pO2 VBG Base Excess 08/14/24 08/14/24 08/15/24 02:49 18:04 06:30 ABG pH 7.39 D 7.32 L 7.47 H D ABG pCO2 41 D 53 H D 29 L D ABG pO2 292 H D 204 H D 193 H ABG HCO3 25 27 H 22 ABG O2 Saturation 101 H 100 H 99 H ABG Base Excess 0 0 -1 VBG pH VBG pCO2 VBG pO2 VBG Base Excess 08/16/24 04:14 ABG pH 7.33 L D ABG pCO2 50 H D ABG pO2 149 H D ABG HCO3 26 ABG O2 Saturation 100 H ABG Base Excess 0 VBG pH VBG pCO2 VBG pO2 VBG Base Excess Assessment & Plan Additional Assessment & Plan Additional Plan: Andrew Bella is a 64-year-old male with a past medical history of hypertension, hyperlipidemia, CAD, insulin-dependent type 2 diabetes mellitus, CHF, A-fib, depression, and history of seizures who initially presented to ED on 08/09 with dyspnea and productive cough with associated pleuritic chest pain, admitted for management of influenza PNA vs CHF exacerbation. Upgraded on 08/10 for airway protection requiring intubation and nephrology consulted in setting of acute kidney injury #Acute kidney injury // Acute tubular necrosis Renal US showed mild bilateral renal parenchymal scar formation without hydronephrosis. ? Patient on dialysis. Tolerating dialysis without any problems. Hemodialysis for 3 hours, 2K, ultrafiltration 2-3 L, Epogen 6000, no heparin ordered. Plan of care discussed with the dialysis nurse. Please see dialysis flowsheet for further details. ? Avoid nephrotoxic agents ? Renally dose medications #HFpEF (EF 55 to 60%) #Atrial fibrillation #Elevated troponin #Transaminitis-better #Hypertension #Hyperlipidemia #CAD #COPD #Type 2 diabetes mellitus, insulin-dependent Patient is going to be discharged to rehab postdialysis. Procedures Arterial Line Size (Gauge): 20
[2024-08-21] MEDS: HEPARIN SOD INJ 1000 UNIT/ML VIAL 10 ML 3000 UNIT INDWELLCAT (10:32)
--- NOTE | 2024-08-21 10:52 | ESDS_ITS ---
Planned Discharge Date 08/21/24 DS: Providers Provider Date of admission: 08/09/24 15:17 Primary care physician: Physician No Primary/Family Admitting Provider: Oscar Oliveira DO Attending Provider on Admission: Alex Brennan MD Consults: 08/10/24 12:01 Consult to Cardiology Urgent Comment: Consulting Provider: Nacho Yoon 08/10/24 13:46 Consult to Tent Finisher Stat Comment: Consulting Provider: Idalmis Murry 08/11/24 05:32 Referral Pharmacy Routine Comment: Reason for Consult: Dose medications Renally 08/11/24 10:56 Consult to Nephrology Routine Comment: ARIANA/ATN Consulting Provider: Dolly Bermeo 08/12/24 09:23 Referral Registered Dietitian Urgent Comment: 08/16/24 15:49 Referral Speech Therapy Urgent Comment: 08/17/24 07:54 Referral Physical Therapy Routine Comment: Physician Instructions: Attending Provider on DC: Nikita Frias MD Discharging Provider: Nikita Frias MD DS: Diagnosis Problem List Completed Was Problem List Reviewed/Reconciled?: Yes Hospital Course Hospital Course Hospital course: Discharge diagnoses: #Acute renal failure secondary to ischemic ATN, new to Hemodialysis #Acute hypoxic/hypercapnic respiratory failure, resolved #Influenza A, treated #Aspiration pneumonia, treat #COPD #Suspicion of obesity hypoventilation syndrome #Atrial fibrillation with rapid ventricular response, rate controlled #Congestive heart failure, HFpEF EF 55 to 60% # Mild aortic stenosis, mitral stenosis #History of seizures #Hypertension #Hyperlipidemia #History of coronary artery disease #Hepatitis 2/2 shock liver versus drug toxicity versus fluid overload, resolved #Type 2 diabetes mellitus, insulin-dependent # Hyperglycemia #Septic shock secondary to aspiration pneumonia, resolved #Acute metabolic encephalopathy, resolved Hospital Course Andrew Bella is a 64-year-old male with a past medical history of hypertension, hyperlipidemia, CAD, insulin-dependent type 2 diabetes mellitus, CHF, A-fib, depression, and history of seizures who recently moved from [place] and initially presented to ED on 08/09 with dyspnea and productive cough with as sociated pleuritic chest pain, cough, wheezing, and weakness. Also noted to have bilateral lower extremity edema and orthopnea, but denied paroxysmal nocturnal dyspnea. In ED, vitals significant for temperature of 100.8 ?F and on room air. Labs showed BUN 29, 1.6, GFR 48, glucose 228, LDH 256, BNP 275, UA 4+ glucose, U tox negative. Influenza A positive. Patient subsequently started on Tamiflu as well as Lasix for possible CHF exacerbation. Throughout hospital course, on 08/10 patient has had 2 rapid responses very well for desaturation requiring BiPAP and IV steroids/antibiotics and the second for hypoxia with altered mentation, requiring intubation for airway protection prompting transfer to ICU for further care. Around time of intubation, ABG showed pH 6.97, pCO2 97. MAP noted to drop below 65 and was started on Levophed and vasopressin. Cardiology consulted for further evaluation of possible CHF exacerbation and A-fib. Although unable to determine baseline renal function, creatinine increased from 1.8 to 2.9 overnight and so nephrology was consulted. Given that patient is intubated, history obtained from chart review. While in the ICU patient's renal function continued to deteriorate with suspicion of acute tubular necrosis in the setting of hypotension due to a MAP less than 65 noted on 08/10. Also patient was changed from vancomycin to linezolid patient was also on azithromycin and Zosyn. CTA chest showed bilateral pneumonia with ARDSnet pattern. On a Vas-Cath for hemodialysis was placed due to patient requiring hemodialysis due to worsening kidney function. On 08/17 patient was successfully extubated. On 08/18 patient was downgraded to telemetry. On 08/18/2024 a permanent tunneled catheter was placed for hemodialysis. Today. Patient is doing well has no complaints. Labs and vital signs were reviewed. Patient is clinically deemed stable for discharge. All questions and concerns were addressed at bedside. Discharge plan: Patient will be discharged to a prison facility Recommend the patient follow along with a and establishing care with a primary care physician here in [place] at least 1 to 2 weeks after discharge for medication reconciliation Patient will be discharged with aspirin 81 mg p.o. daily, for his atrial fibrillation patient will be discharged with Cardizem 120 mg once a day, and eliquis 2.5mg twice a day. Patient will also be discharged with his mirtazapine 45 mg at night, Paxil 20 mg at night, risperidone 3 mg at night, [place] of your 800 mg 3 times a day with meals, Tradjenta 5 mg once a day, tamsulosin 0.4 mg capsule at night. And for lower back pain the patient also be discharged with a lidocaine 5% patch. Patient would benefit from an outpatient sleep study due to concern for obstructive sleep apnea. That is something that he should discuss with his PCP for further evaluation. - Patient's care was discussed with my attending physician, Dr. Mika Frias MD Internal Medicine PGY-3 Status at Discharge Functional status at discharge: bed bound Overall status at discharge: patient is progressing back to baseline Time Spent with Patient Time attestation: Total time spent providing and/or coordinating discharge services: Time spent: Greater than 30 minutes Exam Vital Signs Temp Pulse Resp BP Pulse Ox O2 Del Method O2 Flow Rate 97.1 F 87 17 137/78 H 98 Nasal Cannula 2 08/21/24 10:20 08/21/24 10:45 08/21/24 10:20 08/21/24 10:45 08/21/24 10:20 08/21/24 08:00 08/21/24 10:20 FiO2 30 08/21/24 10:20 Narrative Exam General: AAOx3 morbidly obese man, bearded male HEENT: Moist mucous membranes, conjunctiva clear, EOMI,skin tags present Cardiovascular: Pansystolic murmur ausculated upon mitral valve and R sternal border, no carotid bruit appreciated, radial pulses +2 bilat, irregularly irregular but regular rate Pulmonary: Diffuse expiratory wheezing, improved. Poor lung sounds due to body habitus. GI: No ascites noted, bowel sounds present, no tenderness Extremities: venous stasis with stasis dermatitis, unkempt feet, +3 pitting edema bilateral lower extremity Neuro: AAOx3, no focal motor or sensory deficits Discharge Plan Plan Patient Disposition: [facility] (SNF) Patient condition on transfer: Stable Care Plan Goals: Patient will be discharged to a prison facility Recommend the patient follow along with a and establishing care with a primary care physician here in [place] at least 1 to 2 weeks after discharge for medication reconciliation Patient will be discharged with aspirin 81 mg p.o. daily, for his atrial fibrillation patient will be discharged with Cardizem 120 mg once a day, and eliquis 2.5mg twice a day. Patient will also be discharged with his mirtazapine 45 mg at night, Paxil 20 mg at night, risperidone 3 mg at night, [place]me of your 800 mg 3 times a day with meals, Tradjenta 5 mg once a day, tamsulosin 0.4 mg capsule at night. And for lower back pain the patient also be discharged with a lidocaine 5% patch. Patient would benefit from an outpatient sleep study due to concern for obstructive sleep apnea. That is something that he should discuss with his PCP for further evaluation. Prescriptions/Referrals Prescriptions/Med Rec: New aspirin 81 mg capsule 81 mg PO QDAY 30 Days Qty: 30 0RF mirtazapine 45 mg tablet 45 mg PO HS Qty: 30 0RF tamsulosin 0.4 mg Capsule 0.4 mg PO HS 30 Days Qty: 30 0RF risperidone 3 mg tablet 3 mg PO HS 30 Days Qty: 30 0RF sevelamer carbonate 800 mg Tablet 800 mg PO TIDWM 30 Days Qty: 30 0RF Tradjenta 5 mg tablet 5 mg PO QAM Qty: 30 0RF paroxetine HCl 20 mg tablet 20 mg PO HS Qty: 30 0RF Rx Instructions: Hold this medicine if patient notice signs of confusion, hallucination, seiz ure, extreme changes in blood pressure, increased heart rate, fever, excessive sweating, shivering or shaking, blurred vision for risk of serotonin syndrome in combination with mirtazapine diltiazem HCl [Cardizem CD] 120 mg capsule,extended release 24hr 120 mg PO QAM Qty: 30 0RF polyethylene glycol 3350 [Miralax] 17 gram/dose powder 4 g PO QDAY PRN (Reason: constipation) Qty: 119 0RF senna 8.6 mg capsule 8.6 mg PO QDAY PRN (Reason: constipation) Qty: 20 0RF lidocaine 5 % adhesive patch,medicated 3 patch topical QDAY Qty: 30 4RF Rx Instructions: leave on most painful area for up to 12 hrs apixaban 2.5 mg tablet 2.5 mg PO BID Qty: 60 3RF Referrals: Nacho Yoon MD [Physician] - No Primary/Family,Physician [Primary Care Provider] - Dolly Bermeo MD [Physician] - Patient/Caregiver Discharge Instructions Discharge Activity: activity as tolerated Print Language: Gibraltarian Stand Alone Forms: Naida Award Info., Patient Portal Info Letter Discharge Order Discharge Orders: Discharge (Routine); Ordered 08/21/24 Ordered By: Nikita Frias Quality Discharge Quality Measures VTE prophylaxis Attestestation MD Attestation I have examined the patient, reviewed labs and imaging findings, discussed the case with the resident(s), and reviewed entered orders. I agree with the plan of care as outlined in this note. Dr. Brennan
--- NOTE | 2024-08-21 11:29 | ESPR_ITS ---
Documentation for date of: 08/21/24 Subjective Subjective Interval history: 08/16/2024: Pt examined at bedside, telemetry reviewed rate controlled but still in afib. Pt is currently undergoing SBT, with plans to extubate today. BUN 51, Cr, 4.5, Mg 2.5 and potassium 3.9, WBC of 10.8, patient had dialysis yesterday with 1.9 L removed. Patient is off pressors, currently rate controlled with Cardizem 30 mg 3 times daily along with midodrine 10 mg tid. Please restart amiodarone drip and oral amio 200 mg bid if HR is high and BP low, however AST in the 140s, ALT in the 400sa and downtrending. No other complaints at this time. Severely voulme overloaded and continue dialysis with goal of atelast 3L /day if BP permits and additional sessions if pt can tolerate. 08/17/2024: Patient examined at bedside today during dialysis. Telemetry reviewed, patient seems to be rate controlled in the 100s, still in A-fib. Patient reports he is doing well, he does not remember what was happening in the ICU. He does not report any shortness of breath or chest pain at this time. He says that he uses CPAP last night. It was discussed with him for the need dialysis at this time. His potassium magnesium today were 3.6 and magnesium 2 respectively. His ALT and AST are 56 and 305 respectively, coming down. His hemoglobin was 10.2 and his white count was 9.7, BUN/creatinine of 65 and 4.6. Patient will need to continue dialysis at this time and need to remove at least 3 L a day if blood pressure admits and if patient needs additional sessions. No other complaints at this time 08/18/2024: Patient examined today at bedside. No overnight events on telemetry seen, rate controlled in the 90s. Patient reports he is doing well. He says that he did not use his CPAP last night because no one turn on the machine for him. He says that he is a bit hungry right now because he has not eaten yet. Has no chest pain or any palpitations or shortness of breath per patient. His BUN/creatinine today is 53 and 5.0 respectively, potassium 3.4, was given 20 mill equivalents IV, phosphorus 5.5, magnesium 2.3. Hemoglobin of 10.2, white count of 9., AST 32, ALT 210, downtrending. Patient to get dialysis catheter today, thus why heparin drip has been held. Patient still continue with Cardizem 30 mg 3 times dailyCan change to cardizem CD 120 mg daily when BP more stable and not on midodrine.Patient reports he is still making urine. No other complaints at this time. 08/19/2024: Patient examined at bedside today. No overnight events on telemetry, patient remains to be rate controlled in the 80s and 90s. Patient reports he is doing well, currently in dialysis chair. No overnight complaints. Patient's white blood cell count 8.5, hemoglobin 10.4. Patient's potassium 3.1 today we will give 40 mill equivalents oral, magnesium 2.1, phosphorus 5.2, BUN/creatinine 52 and 4.9 respectively. Patient seems to be controlled with Cardizem 30 mg 3 times daily, primary team to resume Xarelto 20 mg. Patient says he still makes urine. No other complaints this time 08/20/2024: Patient examined at bedside today. No acute overnight events on telemetry, patient seems to be rate controlled in 90s. Patient reports he is doing well. He did not use his CPAP last night, however slept well and did not wake up tired. He is not complaining of any chest pain, palpitations or headaches. No labs were drawn for patient at the time. Blood pressure remains to be stable 136/86 today. Patient is currently pending authorization for outpatient chair dialysis time, his dialysis schedule apparently be Friday. No other complaints this time. Patient will likely follow- up at the [facility] upon discharge. 08/21/2024: Patient examined he is not complaining of any chest pains palpitations headaches at this time. During dialysis today. No acute overnight events on telemetry, rate controlled in the 90s. Patient reports he is doing well. He did not use his CPAP last night, however he slept very good. White count today 10.2, hemoglobin 10.2, BUN/creatinine 66 and 6.0 respectively, magnesium 2.6, phosphorus 6.8, potassium 3.9. Patient is continuing Cardizem 120 CD and Xarelto 20 mg. Blood pressure 113/80, rate in the 70s. No other complaints this time. Exam Vital Signs Temp Pulse Resp BP Pulse Ox O2 Del Method O2 Flow Rate 97.1 F 84 17 128/74 98 Nasal Cannula 2 08/21/24 11:08 08/21/24 11:08 08/21/24 11:08 08/21/24 11:08 08/21/24 11:08 08/21/24 08:00 08/21/24 11:08 FiO2 30 08/21/24 11:08 Narrative Exam General: AAOx3 morbidly obese man, bearded male, in diaylsis chair HEENT: Moist mucous membranes, conjunctiva clear, EOMI,skin tags present Cardiovascular: Pansystolic murmur ausculated upon mitral valve and R sternal border, no carotid bruit appreciated, radial pulses +2 bilat, irregularly irregular, R IJ Pulmonary: Some crackles heard in lung sounds GI: No ascites noted, bowel sounds present, however, abd obesity : No scrotal swelling Extremities: venous stasis noted, unkempt feet, +2 pitting edema bilat, Neuro: AAOx3, no focal motor or sensory deficits Objective Labs 08/21/24 04:39 08/21/24 04:39 Labs: Laboratory Results - last 24 hr 08/20/24 08/21/24 12:35 04:39 WBC 10.8 H 10.2 RBC 3.95 L 3.74 L Hgb 10.8 L 10.2 L Hct 33.5 L 31.2 L MCV 85 83 MCH 27.3 27.3 MCHC 32.2 32.7 RDW Std Deviation 47.7 H 48.2 H Plt Count 276 D 315 D Neut % (Auto) 76 75 Lymph % (Auto) 11 13 [place] % (Auto) 8 8 Eos % (Auto) 1 1 Baso % (Auto) 0 0 Neut # (Auto) 8.2 H 7.7 Lymph # (Auto) 1.2 1.3 [place] # (Auto) 0.9 H 0.8 Eos # (Auto) 0.1 0.1 Baso # (Auto) 0.0 0.0 Immature Gran # (Auto) 0.44 H 0.30 H Absolute Nucleated RBC 0.00 0.00 Immature Gran % 4 H 3 H Nucleated RBC % 0 0 Sodium 134 L 133 L Potassium 3.8 D 3.9 Chloride 94 L 94 L Carbon Dioxide 29.4 25.6 Anion Gap 11 13 BUN 56 H 66 H Creatinine 5.5 H* D 6.0 H* D Estim Creat Clear Calc 21.4 L 19.5 L eGFR 11 L* 10 L* BUN/Creatinine Ratio 10 L 11 L Glucose 96 D 191 H D Calculated Osmolality 283 290 Calcium 8.5 8.4 Corrected Calcium 8.6 8.6 Phosphorus 5.5 H 6.8 H Magnesium 2.5 2.6 Total Bilirubin 0.9 0.8 AST 21 20 ALT 113 H 87 H Alkaline Phosphatase 41 L 39 L Total Protein 7.0 6.7 Albumin 3.9 3.7 Globulin 3.1 3.0 Albumin/Globulin Ratio 1.3 1.2 ABG Interpretation ABG results: 08/10/24 08/10/24 08/10/24 11:34 13:55 16:46 ABG pH 7.21 L 6.97 L* D 6.99 L* ABG pCO2 49 H 95 H* D 78 H* D ABG pO2 60 L 64 L 41 L* D ABG HCO3 20 22 19 L ABG O2 Saturation 86 L 80 L 58 L ABG Base Excess -8 L -12 L -14 L VBG pH VBG pCO2 VBG pO2 VBG Base Excess 08/10/24 08/10/24 08/10/24 19:28 20:48 21:13 ABG pH 7.01 L* Cancelled 7.08 L* ABG pCO2 75 H* Cancelled 69 H ABG pO2 47 L* Cancelled 61 L ABG HCO3 19 L Cancelled 20 ABG O2 Saturation 72 L Cancelled 87 L ABG Base Excess -13 L Cancelled -11 L VBG pH VBG pCO2 VBG pO2 VBG Base Excess 08/11/24 08/11/24 08/11/24 00:34 04:08 14:56 ABG pH 7.14 L* 7.16 L* 7.17 L* ABG pCO2 60 H 54 H 50 H ABG pO2 83 D 114 H D 72 L D ABG HCO3 20 19 L 18 L ABG O2 Saturation 96 99 H 93 ABG Base Excess -10 L -10 L -10 L VBG pH VBG pCO2 VBG pO2 VBG Base Excess 08/11/24 08/11/24 08/12/24 20:05 23:14 02:06 ABG pH 7.20 L 7.25 L 7.27 L ABG pCO2 55 H 49 H 50 H ABG pO2 82 L 93 90 ABG HCO3 21 22 23 ABG O2 Saturation 96 98 98 ABG Base Excess -7 L -6 L -4 L VBG pH VBG pCO2 VBG pO2 VBG Base Excess 08/12/24 08/12/24 08/12/24 06:30 10:13 10:45 ABG pH 7.34 L 7.31 L ABG pCO2 41 42 ABG pO2 177 H D 134 H D ABG HCO3 22 21 ABG O2 Saturation 100 H 100 H ABG Base Excess -4 L -5 L VBG pH 7.30 L VBG pCO2 43 VBG pO2 53 VBG Base Excess -5 L 08/12/24 08/12/24 08/13/24 14:10 19:57 04:27 ABG pH 7.33 L 7.35 7.35 ABG pCO2 40 41 40 ABG pO2 114 H D 103 95 ABG HCO3 21 23 22 ABG O2 Saturation 99 H 99 H 98 ABG Base Excess -5 L -3 -4 L VBG pH VBG pCO2 VBG pO2 VBG Base Excess 08/13/24 08/13/24 08/13/24 20:14 21:45 23:54 ABG pH 7.26 L 7.26 L 7.26 L ABG pCO2 61 H D 60 H 59 H ABG pO2 84 201 H D 151 H D ABG HCO3 27 H 27 H 27 H ABG O2 Saturation 96 100 H 100 H ABG Base Excess -1 -1 -1 VBG pH VBG pCO2 VBG pO2 VBG Base Excess 08/14/24 08/14/24 08/15/24 02:49 18:04 06:30 ABG pH 7.39 D 7.32 L 7.47 H D ABG pCO2 41 D 53 H D 29 L D ABG pO2 292 H D 204 H D 193 H ABG HCO3 25 27 H 22 ABG O2 Saturation 101 H 100 H 99 H ABG Base Excess 0 0 -1 VBG pH VBG pCO2 VBG pO2 VBG Base Excess 08/16/24 04:14 ABG pH 7.33 L D ABG pCO2 50 H D ABG pO2 149 H D ABG HCO3 26 ABG O2 Saturation 100 H ABG Base Excess 0 VBG pH VBG pCO2 VBG pO2 VBG Base Excess Quality Measures Quality Measures VTE prophylaxis Assessment & Plan Assessment Current Active Medications: Generic Name Dose Route Start Last Admin Trade Name Korin PRN Reason Stop Dose Admin Acetaminophen 650 mg 08/20/24 21:52 08/20/24 22:02 Acetaminophen 325 Mg Tablet PO 09/10/24 05:56 650 mg Q6HR PRN Administration Fever >101 or pain - Mild Aspirin 81 mg 08/11/24 09:00 08/20/24 08:21 Aspirin Ec 81 Mg Tabec PO 09/10/24 08:59 81 mg QDAY ASHWIN Administration Rosuvastatin 20 Mg 0 ea 08/09/24 21:00 08/13/24 22:47 PO 09/08/24 20:59 Not Given HS ASHWIN Dextrose 25 ml 08/09/24 15:31 Dextrose 50%-Water Inj 50 Ml Syringe IV 09/08/24 15:30 Q15MIN PRN BG 50-70 responsive npo pt Dextrose 50 ml 08/09/24 15:31 08/12/24 04:24 Dextrose 50%-Water Inj 50 Ml Syringe IV 09/08/24 15:30 50 ml Q15MIN PRN Administration BG <50 OR BG <70 & pt unresponsive Diltiazem HCl 30 mg 08/15/24 22:00 08/19/24 21:03 Diltiazem 30 Mg Tablet PO 09/14/24 21:59 30 mg TID ASHWIN Administration Diltiazem HCl 120 mg 08/20/24 09:00 08/20/24 08:21 Diltiazem Cd 120 Mg Capcr PO 09/19/24 08:59 120 mg QDAY ASHWIN Administration Glucagon 1 mg 08/09/24 15:31 Glucagon Inj 1 Mg Vial IM Q15MIN PRN BG <70, and no IV access Heparin Sodium (Porcine) 3,000 unit 08/12/24 15:11 08/21/24 10:32 Heparin Sod Inj 1000 Unit/Ml Vial 10 Ml INDWELLCAT 08/26/24 15:10 3,000 unit PRN PRN Administration DIALYSIS Albumin Human 25 gm in 100 mls @ 100 mls/min 08/12/24 15:11 08/15/24 14:00 Albuminar-25 Ivpb IV Infused PRN PRN Infusion DIALYSIS Insulin Glargine 18 unit 08/19/24 09:00 08/20/24 08:21 Insulin Glargine (Lantus) 5 Unit/0.05 Ml (Per 5 Units) SC 09/18/24 08:59 18 unit QDAY ASHWIN Administration Insulin Human Lispro 0 unit 08/16/24 18:00 08/21/24 09:59 Insulin Lispro (Admelog) 1 Unit/0.01 Ml Unit SC 09/15/24 17:59 Not Given ACHS ASHWIN Protocol Levalbuterol HCl 0.63 mg 08/19/24 15:57 Levalbuterol Rt 0.63 Mg/3 Ml Nebu INH 09/12/24 19:14 Q6HRRT PRN sob or wheeze Lidocaine 1 patch 08/20/24 21:51 08/20/24 22:16 Lidocaine 5% 1 Patch TOP 09/19/24 21:50 1 patch DAILY@2100 PRN Administration Back pain Magnesium Hydroxide 30 ml 08/20/24 10:16 Milk Of Magnesia Susp 30 Ml Udc PO 09/19/24 10:15 QDAY PRN CONSTIPATION Protocol Midodrine 10 mg 08/14/24 14:00 08/17/24 14:30 Midodrine 5 Mg Tablet PO 09/13/24 13:59 Not Given TID ASHWIN Mirtazapine 45 mg 08/09/24 21:00 08/20/24 20:38 Mirtazapine 15 Mg Tablet PO 09/08/24 20:59 45 mg HS ASHWIN Administration Ondansetron HCl 4 mg 08/09/24 15:20 Ondansetron Inj 2 Mg/Ml Inj 2 Ml IV 09/08/24 15:19 Q6H PRN NAUSEA OR VOMITING Protocol Paroxetine HCl 20 mg 08/14/24 21:00 08/20/24 20:38 Paroxetine Hcl 10 Mg Tablet PO 09/13/24 20:59 20 mg HS ASHWIN Administration Pharmacy Consult 1 each 08/11/24 20:59 Pharmacy Renal Dose Adjustment 1 Ea XX 09/10/24 20:58 PRN PRN CONSULT Risperidone 3 mg 08/14/24 21:00 08/20/24 20:38 Risperidone 1 Mg Tablet PO 09/13/24 20:59 3 mg HS ASHWIN Administration Rivaroxaban 20 mg 08/19/24 09:00 08/20/24 08:21 Rivaroxaban 10 Mg Tablet PO 09/18/24 08:59 20 mg QDAY ASHWIN Administration Sennosides 1 tab 08/20/24 10:16 Senna Tablet PO 09/19/24 10:15 QDAY PRN CONSTIPATION Protocol Sevelamer Carbonate 800 mg 08/17/24 08:00 08/21/24 09:59 Sevelamer Carbonate 800 Mg Tablet PO 09/16/24 07:59 Not Given TIDWM ASHWIN Tamsulosin HCl 0.4 mg 08/09/24 16:00 08/20/24 08:21 Tamsulosin Hcl 0.4 Mg Capsule PO 09/08/24 15:59 0.4 mg QDAY ASHWIN Administration Topiramate 50 mg 08/09/24 21:00 08/13/24 22:46 Topiramate 25 Mg Tablet PO 09/08/24 20:59 Not Given HS ASHWIN Plan Assessment Andrew is a 64 y/o male with past medical history of hypertension, hyperlipidemia, CAD, type 2 diabetes insulin-dependent, CHF, A-fib (on Eliquis 5mg twice daily), history of seizures who is currently admitted into the ICU for acute hypoxic hypercarbic respiratory failure requiring intubation and likely septic shock secondary to influenza A. #Afib with RVR, on home Eliquis [id number] HAS-BLED: 1 AC:Has home Eliquis Plan: ?Continue with Cardizem 120 mg CD ?Please restart amiodarone drip and oral amio 200 mg bid if HR is high and BP low, however AST/ALT have been downtrending ?Continue with Xarelto 20 mg daily ?Keep potassium between 4 and 5 and magnesium greater than 2.0 at all times. ?Recommend to continue to monitor on telemetry ?Continue dialysis with goal of atleast 3L /day if BP permits and additional sessions if pt can tolerate ?Continue CPAP every night #Septic shock secondary to, (improving) #Influenza A #? Superimposed bacterial infection Influenza A positive Pt currently has A line at this time Blood cultures NG2D, sputum and MRSA negative Off pressors Patient has finished Tamiflu Plan: -Continue Unasyn #Hx of CAD #Acute exacerbation of HFpEF with diastolic dysfunction #Mild aortic stenosis #NSTEMI type II, likely related to demand ischemia , resolved Echo shows EF 55-60%, normal LV, mild LVH, dilated RV, IVC dilated, AV stenosis Troponins have peaked No urine output past 24 hours, BUN/Cr 6 and 5.6 respectively Patient should get at least 3 L removed each session and additional sessions if blood pressure tolerates As patient still able to make urine, we recommend diuresis at some point Plan: -Patient will continue with dialysis at this time, currently setting up outpatient dialysis, believe that patient will get T//S dialysis schedule #IDDM #Hyperlipidemia #Hypertension Total Cholesterol: 83 LDL:30 A1c 7.1 Plan: Consider resuming home blood pressure medicines at some point as blood pressure tolerates Resumed home Rosuvastatin Primary team to handle BG #Acute hypoxic hypercarbic respiratory failure, improving #Respiratory acidosis, improving #Hx of COPD #OHS Plan: -CPAP at night -Pulmonary hygiene -Chest physiotherapy -Continue levalbuterol #ESRD, on HD #ARIANA, prerenal #Shock liver #History of depression #History of seizures #Normocytic Anemia #Mild Hyponatremia Hypo-osmolar, Hypervolemic Above managed by primary hospitalist team Patient seen and care discussed with my attending physician, Dr. Karrie Merritt, PGY-1, Attending Provider Attestation/Addendum I have personally seen and examined the patient separately on the above date of service and discussed the plan of care with the resident. I reviewed the resident Dr. Gaming consultation progress note and agree with the resident findings and plan in the note above and have also edited the documentation to reflect my findings and plan. Nacho Yoon M.D. Interventional Cardiology
--- NOTE | 2024-08-21 11:40 | PC.SS ---
SS has setup gurney transportation with [facility]. Pt is requiring O2 at d/c. SS met with pt to inform him of cost of transportation due to his insurance not having covering transportation. Pt states he is unable to pay privately for transport. SS has sent VARUN for transport, patient's facesheet, and ambulance form to [facility] using [facility] [place]. SS spoke to [facility] at [facility] and transport is for 2pm to [facility]. Soniya at [facility] is aware. Bedside nurse is aware, pt is aware, Mari GUEVARA is aware.
[2024-08-21] MEDS: ASPIRIN EC 81 MG TABEC PO (12:04)
[2024-08-21] MEDS: DILTIAZEM CD 120 MG CAPCR PO (12:04)
[2024-08-21] MEDS: SEVELAMER CARBONATE 800 MG TABLET PO (12:07)
[2024-08-21] MEDS: TAMSULOSIN HCL 0.4 MG CAPSULE PO (12:07)
[2024-08-21] MEDS: INSULIN LISPRO (AdmeLOG) 1 UNIT/0.01 ML UNIT SC (12:09)
--- NOTE | 2024-08-21 12:19 | PC.NURSE ---
Dialysis completed for 3 hrs tolerated well. Able to removed 3000 ml of fluid net. Pt awake/alert no complaints. Respiration even and unlabored. Sating at 98% on O2 at 2 L/min via nc. Post tx BP 128/74, HR 84, Temp 97.1. Report given to Edison GAUTHIER
--- NOTE | 2024-08-21 16:51 | PC.NURSE ---
Report given to SNF nurse Brit at [facility] at 1230. All DC instructions given to SNF nurse and no further questions were asked. Med list included along with the discharge packet.
== END 2024-08-21 16:40 | disposition skilled nursing facility (03) | DRG 870 ==
LOC: SERX 14:46 → SERHOLD 16:16 → S2NX 18:46 → S2SX 08-11 12:11 → S2NX 08-16 18:51
PROVIDERS: Internal Medicine; Registered Nurse General Practice; Student in an Organized Health Care Education/Training Program; Admitting Provider Student in an Organized Health Care Education/Training Program; Emergency Provider Emergency Medicine; Visit Provider Student in an Organized Health Care Education/Training Program
DX: A41.89 Other specified sepsis (principal); J10.01 Influenza due to other identified influenza virus with the same other identified influenza virus pneumonia; I21.A1 Myocardial infarction type 2; I50.33 Acute on chronic diastolic (congestive) heart failure; J80 Acute respiratory distress syndrome; G93.41 Metabolic encephalopathy; K72.00 Acute and subacute hepatic failure without coma; N17.0 Acute kidney failure with tubular necrosis; N18.6 End stage renal disease; R65.21 Severe sepsis with septic shock; J69.0 Pneumonitis due to inhalation of food and vomit; E87.1 Hypo-osmolality and hyponatremia; Z68.41 Body mass index [BMI] 40.0-44.9, adult; I13.2 Hypertensive heart and chronic kidney disease with heart failure and with stage 5 chronic kidney disease, or end stage renal disease; J44.0 Chronic obstructive pulmonary disease with (acute) lower respiratory infection; E87.3 Alkalosis; E66.2 Morbid (severe) obesity with alveolar hypoventilation; E78.5 Hyperlipidemia, unspecified; I48.91 Unspecified atrial fibrillation; E11.65 Type 2 diabetes mellitus with hyperglycemia; R21 Rash and other nonspecific skin eruption; I25.2 Old myocardial infarction; E11.22 Type 2 diabetes mellitus with diabetic chronic kidney disease; E87.6 Hypokalemia; I25.10 Atherosclerotic heart disease of native coronary artery without angina pectoris; I25.5 Ischemic cardiomyopathy; E83.39 Other disorders of phosphorus metabolism; I87.8 Other specified disorders of veins; K76.0 Fatty (change of) liver, not elsewhere classified; D63.1 Anemia in chronic kidney disease; N40.0 Benign prostatic hyperplasia without lower urinary tract symptoms; F32.A Depression, unspecified; R00.1 Bradycardia, unspecified; R56.9 Unspecified convulsions; I08.0 Rheumatic disorders of both mitral and aortic valves; Z87.891 Personal history of nicotine dependence; Z79.01 Long term (current) use of anticoagulants; Z79.4 Long term (current) use of insulin; Z78.1 Physical restraint status; Z79.899 Other long term (current) drug therapy; Z79.84 Long term (current) use of oral hypoglycemic drugs; Z88.8 Allergy status to other drugs, medicaments and biological substances; T50.915A Adverse effect of multiple unspecified drugs, medicaments and biological substances, initial encounter; Y92.230 Patient room in hospital as the place of occurrence of the external cause
CPT/HCPCS: 36415; 36600; 71045; 71275; 74018; 74177; 76705; 76770; 76937; 77001; 80048; 80053; 80061; 80069; 80074; 80202; 80307; 81001; 82010; 82140; 82436; 82550; 82570; 82607; 82728; 82803; 83036; 83540; 83550; 83605; 83615; 83735; 83880; 84100; 84132; 84133; 84145; 84156; 84300; 84439; 84443; 84484; 84540; 85025; 85610; 85730; 86331; 86635; 86703; 86706; 87040; 87081; 87205; 87400; 87811; 92526; 92610; 93005; 93306; 94002; 94003; 94640; 94660; 94667; 96372; 96374; 96375; 97162; 99285; A4649; A9270; C1750; C1894; J0283; J0295; J0456; J0696; J1642; J1643; J1644; J1815; J1940; J2021; J2250; J2371; J2470; J2543; J2598; J2704; J2919; J3010; J3371; J3480; J3490; J7040; J7050; P9047; Q5105; Q5106; Q9967

== ENCOUNTER 2024-11-08 22:08 | Inpatient (IN) | payer MEDICARE, MEDICAID, SELFPAY ==
[2024-11-08 22:12] VITALS: BP 163/73; PULSE 72; RESP 22; TEMP 39.4; O2SAT 83
[2024-11-08 22:17] VITALS: PULSE 62; O2SAT 94
--- NOTE | 2024-11-08 22:17 | PD.EDRME ---
Rapid Medical Screening Exam RME Arrival date/time: 11/08/24 22:08 Chief Complaint: Headache Time Seen by Provider: 11/08/24 22:17 Vital signs: Vital Signs Temperature 102.9 F H 11/08/24 22:12 Pulse Rate 72 11/08/24 22:12 Respiratory Rate 22 H 11/08/24 22:12 Blood Pressure 163/73 H 11/08/24 22:12 Pulse Oximetry (%) 83 L 11/08/24 22:12 Oxygen Delivery Method Room Air 11/08/24 22:12 Vital signs reviewed by provider: Yes RME Narrative: 64-[facility] and fever. Patient also complaining of headache after vomiting multiple times today. Patient took Tylenol earlier today at 4 PM. Prior to arrival to EMS was given nothing en route. Past medical history includes hypertension, diabetes, CHF, atrial fibrillation, high cholesterol, hemodialysis Friday on oxygen 2 L as needed as needed, history of seizure disorder, coronary artery disease, type 2 diabetes, history of pneumonia, morbid obesity, COPD approximately 2, atrial fibrillation on Cardizem., Eliquis. Social history living in [facility]pc. Full code. ED course: Patient Emergency Department screens positive for sepsis. Sepsis alert was called at 10:21 PM. However the patient has bilateral pedal edema. Rales at the bases. At this time the patient will not be given 30 mL/kg since he likely has evidence of congestive heart failure.
[2024-11-08 22:23] VITALS: PULSE 67; RESP 30; RESP 83; O2SAT 90
--- NOTE | 2024-11-08 22:23 | EKG_ITS ---
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: : 1960 Requested By: Lilli Diggs Order Number: [id number] Reading MD: Lilli Diggs Measurements Intervals [place] Rate: 61 P: NM: QRS: -33 QRSD: 86 T: 74 QT: 398 QTc: 403 Interpretive Statements ATRIAL FIBRILLATION LEFT AXIS DEVIATION [QRS AXIS < -30] LOW QRS VOLTAGE IN EXTREMITY LEADS [QRS DEFLECTION < 0.5 mV IN LIMB LEADS] PATTERN CONSISTENT WITH PULMONARY DISEASE POSSIBLE RIGHT VENTRICULAR CONDUCTION DELAY [RSR (QR) IN V1/V2] SEPTAL MYOCARDIAL INFARCTION , OF INDETERMINATE AGE [40+ ms Q WAVE IN V1/V2] Compared to ECG 08/10/2024 11:35:48 Left-axis deviation now present Low QRS voltage now present Myocardial infarct finding still present /store/S0/[id number]/ecg/[id number].pdf
--- NOTE | 2024-11-08 22:24 | XR_ITS ---
Examination: AP chest single view Technique one AP portable semiupright chest single view Exam date and time: November 08, 2024 1040 hrs. Comparison August 16, 2024 Indications: Sepsis alert, shortness of breath chest pain today. Findings: Mild heart failure Mild enlargement cardiac contour Prominent vascular congestion Early perihilar edema Consider superimposed pneumonia right base Impression: Mild heart failure Suspicious for superimposed pneumonia right base
--- NOTE | 2024-11-08 22:27 | PD.EDNV ---
Nausea/Vomit./Diarrhea-RME/HPI General Chief complaint: Headache Stated complaint: HEADACHE Time Seen by Provider: 11/08/24 22:17 Arrival date/time: 11/08/24 22:08 Limitations: no limitations RME / HPI RME / HPI Narrative: Dr. Garcia's Main ED Evaluation: 64[facility]. Patient also complaining of headache after vomiting multiple times today. Patient took Tylenol earlier today at 4 PM. Prior to arrival to EMS was given nothing en route. Past medical history includes hypertension, diabetes, CHF, atrial fibrillation, high cholesterol, hemodialysis Friday on oxygen 2 L as needed as needed, history of seizure disorder, coronary artery disease, type 2 diabetes, history of pneumonia, morbid obesity, COPD approximately 2, atrial fibrillation on Cardizem., Eliquis. Social history living in shelter. Full code. Related Data Previous Rx's ?Medication ?Instructions ?Recorded diltiazem HCl 120 mg 120 mg PO QAM #30 caps 08/19/24 capsule,extended release 24 hr (Cardizem CD) linagliptin 5 mg tablet (Tradjenta) 5 mg PO QAM #30 tabs 08/19/24 mirtazapine 45 mg tablet 45 mg PO HS #30 tabs 08/19/24 paroxetine HCl 20 mg tablet 20 mg PO HS #30 tabs 08/19/24 polyethylene glycol 3350 17 4 g PO QDAY PRN constipation #119 08/19/24 gram/dose oral powder (Miralax) grams sennosides 8.6 mg capsule (senna) 8.6 mg PO QDAY PRN constipation 08/19/24 #20 caps apixaban 2.5 mg tablet 2.5 mg PO BID #60 tabs 08/21/24 lidocaine 5 % topical patch 3 patch topical QDAY #30 ea 08/21/24 Allergies Allergy/AdvReac Type Severity Reaction Status Date / Time atorvastatin Allergy Verified 08/09/24 13:49 lisinopril Allergy Verified 08/09/24 13:49 sulfamethoxazole (From Allergy Verified 08/09/24 13:49 Bactrim) trimethoprim (From Bactrim) Allergy Verified 08/09/24 13:49 Review of Systems Review of Systems Systems Reviewed: All systems reviewed, normal except as documented Past Medical History Past Medical History NEUROLOGIC: Positive Seizures (per pt last siezure greater than 10 yrs ago) CARDIAC: Positive Cardiac Disorders ([place]), Hypercholesterolemia, Congestive Heart Failure and Hypertension RESPIRATORY: Positive Chronic Obstructive Pulmonary Disease (COPD) GASTROINTESTINAL: Positive Gastrointestinal Disorders (hernia) GENITOURINARY: Negative Renal Disease ENDOCRINE: Positive Diabetes Mellitus Type 2; Negative Diabetes Mellitus Type 1 Surgical History SURGICAL: Positive Tonsillectomy and Joint Replacement (neck) Social History SMOKING STATUS: Former smoker ED Exam Narrative Physical exam: Patient is awake and talking full sentences. Appears fatigued. General Limitations: Present no limitations General appearance: Present alert and obese; Absent in distress Head Head exam: Present atraumatic Eye Eye exam: Present normal appearance, PERRL and EOMI ENT ENT exam: Present normal exam, normal oropharynx and mucous membranes moist Neck Neck exam: Present normal inspection, full ROM and trachea midline Chest Chest inspection: Present normal inspection and symmetric chest wall rise Respiratory Respiratory exam: Present other (Decreased breath sounds bilaterally at the bases.) Cardiovascular Cardiovascular exam: Present regular rate, normal rhythm and normal heart sounds Abdominal Exam Abdominal exam: Present soft and normal bowel sounds; Absent distention, tenderness, guarding or rebound Extremities Exam Extremities exam: Present normal inspection, full ROM and pedal edema (At the ankles bilaterally. Chronic vascular changes on the anterior shins bilaterally.) Back Exam Back exam: Present normal inspection and full ROM Neurological Exam Neurological exam: Present alert, oriented X3 and CN II-XII intact Psychiatric Psychiatric exam: Present normal affect and normal mood Skin Skin exam: Present warm, dry, intact and normal color Course Course Course Narrative: 222: Sepsis alert initiated. Orders made at this time are congruent with ED Adult Sepsis Order List. Re-evaluation is to be completed. CXR is ordered for determining the etiology of fever. 30mL/kg NS IVF not ordered due to the patient's history of CHF. Quality Measures Possible source: pulmonary Blood cultures ordered: yes Antibiotic ordered: Yes Pertinent labs: 11/08/24 22:37 Lactic Acid 2.2 H mMol/L (0.4-2.0) Procalcitonin 0.40 ng/ml (0.0-0.49) sepsis Orders Category Date Time Status Process Plant Operator STAT Care 11/08/24 22:23 Active Continuous Pulse Oximetry STAT Care 11/08/24 22:23 Completed EKG (ED ONLY) *Do not use* NOW Care 11/08/24 22:23 Completed Insert IV NOW Care 11/08/24 22:23 Active NPO STAT Care 11/08/24 22:23 Active Strict Intake and Output Routine Care 11/08/24 22:23 Ordered EKG (ED Only) Stat Exams 11/08/24 22:23 Draft XR chest 1V SEPSIS PROTOCOL Stat Exams 11/08/24 22:24 Completed Arterial Blood Gas AM DRAW Lab 11/09/24 05:00 Ordered B-Type Natriuretic Peptide Stat Lab 11/08/24 23:27 Completed Blood Culture (Lab) Stat Lab 11/08/24 22:37 Received CBC Stat Lab 11/08/24 23:27 Completed Comprehensive Metabolic Panel Stat Lab 11/08/24 22:37 Completed LDH (Lactate Dehydrogenase) Stat Lab 11/08/24 22:37 Completed Lactate (Lactic Acid) Stat Lab 11/08/24 22:37 Completed Lipase Stat Lab 11/08/24 22:37 Completed Magnesium Stat Lab 11/08/24 22:37 Completed Partial Thromboplastin Time Stat Lab 11/08/24 22:37 Completed Phosphorous Stat Lab 11/08/24 22:37 Completed Procalcitonin Stat Lab 11/08/24 22:37 Completed Prothrombin Time with INR Stat Lab 11/08/24 22:37 Completed Troponin I Stat Lab 11/08/24 22:37 Completed Urinalysis Stat Lab 11/08/24 23:01 Completed Urine Culture Stat Lab 11/08/24 23:01 Received Ondansetron Inj [Zofran Inj] Med 11/08/24 22:23 Active 4 mg IV Q6HR PRN Piper/Tazo Inj [Zosyn Inj] 3.375 gm Med 11/08/24 22:45 Discontinued SODIUM CHLORIDE 0.9% (Popper) [Ns 0.9% (P)] 50 ml IV X1 Vancomycin Inj 1,000 mg Med 11/08/24 22:26 Discontinued Sodium Chloride 0.9% 250 ml [Ns] 250 ml IV X1 Oxygen Delivery NOW RT 11/08/24 22:23 Active Vital Signs Vital signs: Vital Signs Temperature 102.9 F H 11/08/24 22:12 Pulse Rate 72 11/08/24 22:12 Respiratory Rate 22 H 11/08/24 22:12 Blood Pressure 163/73 H 11/08/24 22:12 Pulse Oximetry (%) 83 L 11/08/24 22:12 Oxygen Delivery Method Room Air 11/08/24 22:12 Nausea/Vomiting/Diarrhea MDM Narrative MDM Narrative:: 64-year-old male with history of hypertension, A-fib, shelter patient, hemodialysis presenting with nausea, fever. Differential diagnosis includes sepsis, pneumonia, CHF, A-fib with RVR, cellulitis, other occult bacteremia ED course: Patient Emergency Department screens positive for sepsis. Sepsis alert was called at 10:21 PM. However the patient has bilateral pedal edema. Rales at the bases. At this time the patient will not be given 30 mL/kg since he likely has evidence of congestive heart failure. Patient treated with IV antibiotics. 0107: Discussed case with Dr. Yousif from Hospitalist service regarding admission. Discussed patients ED course, exam findings, labs, and radiology results. The Hospitalist [agrees] to accept the patient for admission. Patient data External records reviewed:: [facility] previous records (Per chart review, patient was admitted here on 08/09/24 for [facility].) Clinical information provided by:: patient Social determinants that could affect healthcare access:: housing (SNF resident) Patient has the following chronic illnesses:: HTN, aFib, HLD, CAD, insulin-dependent type 2 diabetes mellitus, CHF How is presenting disease/condition affected by chronic disease/condition?: exacerbated by Evaluation data The following diagnostics were reviewed and interpreted by me:: lab results, radiology exam(s) and EKG tracing(s) Lab and/or radiology exams considered but not ordered:: none Interpretation Summary: WBC count is elevated at 27.4, Creatinine is 1.6, Glucose is 242, Troponin is 0.046, Lactic Acid is 2.2, Procalcitonin is normal, UA is unremarkable, according to my interpretation. EKG done at 2233, NSR, rate of 61, low voltage, old septal infarct, no STEMI, according to my interpretation. [facility] Report Signed Patient: YNES NEIL. Record#: [id number] Birthdate: 1960 Age/Sex: 64 / M Location: [facility] Attending Dr: Ordering Physician: Lilli Chacko MD Date of Service: 11/08/24 Procedure(s): XR chest 1V SEPSIS PROTOCOL Accession Number(s): [id number] cc: Keshav Yap MD; Lilli Chacko MD~ Examination: AP chest single view Technique one AP portable semiupright chest single view Exam date and time: November 08, 2024 1040 hrs. Comparison August 16, 2024 Indications: Sepsis alert, shortness of breath chest pain today. Findings: Mild heart failure Mild enlargement cardiac contour Prominent vascular congestion Early perihilar edema Consider superimposed pneumonia right base Impression: Mild heart failure Suspicious for superimposed pneumonia right base Dictated By: Keshav Yap MD Signed By: <Electronically signed by Keshav Yap MD in OV> 11/08/24 5629 Medications / Prescriptions Medications / Prescriptions considered but not ordered:: none Medication administrations:: Medication Administration History Acetaminophen (Acetaminophen 325 Mg Tablet) 650 mg PO Q6H PRN PRN Reason: Fever >100.4 Stop: 12/09/24 01:52 Acetaminophen (Acetaminophen 325 Mg Tablet) 650 mg PO Q6H PRN PRN Reason: PAIN SCALE 1-3 (mild Stop: 12/09/24 01:52 Hydrocodone Bitart/Acetaminophen (Hydrocodone/Apap 5/325 Tablet) 1 tab PO Q4HR PRN PRN Reason: PAIN SCALE 4-6 (Moderate Stop: 11/14/24 01:52 Albuterol/Ipratropium (Albuterol/Ipratropium (Duoneb) Rt Aspen 3 Ml Nebu) 3 ml INH Q6HRRT ASHWIN Stop: 12/09/24 06:59 Aspirin (Aspirin Ec 81 Mg Tabec) 81 mg PO QDAY ASHWIN Stop: 12/09/24 08:59 Bisacodyl (Bisacodyl 10 Mg Supp) 10 mg LA Q72H PRN; Protocol PRN Reason: constipation Stop: 12/09/24 02:14 Dextrose (Dextrose 50%-Water Inj 50 Ml Syringe) 25 ml IV Q15MIN PRN PRN Reason: BG 50-70 responsive npo pt Stop: 12/09/24 01:52 Dextrose (Dextrose 50%-Water Inj 50 Ml Syringe) 50 ml IV Q15MIN PRN PRN Reason: BG <50 OR BG <70 & pt unresponsive Stop: 12/09/24 01:52 Diltiazem HCl (Diltiazem Er 90 Mg Er Capsule) 120 mg PO X1 ONE Stop: 11/09/24 02:04 Glucagon (Glucagon Inj 1 Mg Vial) 1 mg IM Q15MIN PRN PRN Reason: BG <70, and no IV access Magnesium Sulfate (Magnesium Sulfate Ivpb) 2 gm in 50 mls @ 25 mls/hr IV X1 ONE Stop: 11/09/24 03:23 Last Admin: 11/09/24 01:36 Dose: 25 mls/hr Documented By: SF Magnesium Sulfate (Magnesium Sulfate Ivpb) 2 gm in 50 mls @ 25 mls/hr IV X1 ONE Stop: 11/09/24 03:49 Doxycycline Hyclate 100 mg/ (Sodium Chloride) 100 mls @ 100 mls/hr IV BID ASHWIN Stop: 11/16/24 08:59 Cefepime HCl 2 gm/ Sodium (Chloride) 50 mls @ 100 mls/hr IV Q8HR ASHWIN Stop: 11/16/24 06:59 Insulin Human Lispro (Insulin Lispro (Admelog) 1 Unit/0.01 Ml Unit) 0 unit SC AC ASHWIN; Protocol Stop: 12/09/24 07:29 Lidocaine (Lidocaine 5% 1 Patch) 1 patch TOP X1 ONE Stop: 11/09/24 02:04 Magnesium Hydroxide (Milk Of Magnesia Susp 30 Ml Udc) 30 ml PO Q72H PRN; Protocol PRN Reason: Constipation Stop: 12/09/24 02:14 Mirtazapine (Mirtazapine 15 Mg Tablet) 45 mg PO HS ASHWIN Stop: 12/09/24 20:59 Ondansetron HCl (Ondansetron Inj 2 Mg/Ml Inj 2 Ml) 4 mg IV Q6HR PRN PRN Reason: NAUSEA OR VOMITING Stop: 12/08/24 22:22 Ondansetron HCl (Ondansetron Inj 2 Mg/Ml Inj 2 Ml) 4 mg IV Q6H PRN; Protocol PRN Reason: NAUSEA OR VOMITING Stop: 12/09/24 01:52 Paroxetine HCl (Paroxetine Hcl 10 Mg Tablet) 20 mg PO HS ASHWIN Stop: 12/09/24 20:59 Polyethylene Glycol (Polyethylene Glycol 17 Gm Packet) 17 gm PO QDAY ASHWIN Stop: 12/09/24 08:59 Risperidone (Risperidone 1 Mg Tablet) 3 mg PO HS ASHWIN Stop: 12/09/24 20:59 Rivaroxaban (Rivaroxaban 10 Mg Tablet) 20 mg PO QDAY [facility] Stop: 12/09/24 08:59 Sennosides (Senna Tablet) 1 tab PO QDAY PRN; Protocol PRN Reason: CONSTIPATION Stop: 12/09/24 02:08 Sevelamer Carbonate (Sevelamer Carbonate 800 Mg Tablet) 800 mg PO DAILY [facility] Stop: 12/09/24 08:59 Sodium Chloride (Sodium Chloride Rt 10% 15 Ml Nebu) 5 ml INH X1 ONE Stop: 11/09/24 01:54 Tamsulosin HCl (Tamsulosin Hcl 0.4 Mg Capsule) 0.4 mg PO QDAY [facility] Stop: 12/09/24 08:59 Discontinued Medications Enoxaparin Sodium (Enoxaparin Sod Inj 40 Mg/0.4 Ml Syringe) 40 mg SC QDAY [facility] Stop: 11/23/24 08:59 Piperacillin Sod/Tazobactam (Sod 3.375 gm/ Sodium Chloride) 50 mls @ 100 mls/hr IV X1 ONE Stop: 11/08/24 23:14 Last Infusion: 11/08/24 23:42 Dose: Infused Documented By: Admin: 11/08/24 22:59 Dose: 100 mls/hr Documented By: SUMANTH Vancomycin HCl 1,000 mg/ (Sodium Chloride) 250 mls @ 150 mls/hr IV X1 ONE Stop: 11/09/24 00:05 Last Infusion: 11/09/24 01:23 Dose: Infused Documented By: Admin: 11/08/24 23:42 Dose: 150 mls/hr Documented By: SUMANTH see above Consultations Consultation(s) initiated? (list below): Yes Diagnosis Nausea Differential Diagnosis: dehydration and other (pneumonia, sepsis, UTI, electrolyte abnormality) Most likely diagnosis given after review of the tests above:: see clinical impression below Admission Indicated Admission indicated?: indicated Admission Request Was there a request for admission?: Yes Admission Attestation Admission request attestation: Discussed case with [] from Hospitalist service regarding admission. Discussed patients ED course, exam findings, labs, and radiology results. The Hospitalist [agrees,declines] to accept the patient for admission. Disposition Plan Disposition Plan: Admit Critical Care Time Critical Care Time Critical Care Time: Yes Total Critical Care Time (min.): 45 Attestation: The high probability of sudden, clinically significant deterioration in the patient?s condition required the highest level of my preparedness to intervene urgently. The services I provided to this patient were to treat and/or prevent clinically significant deterioration. Services included the following: chart data review, reviewing nursing notes and/or old charts, documentation time, telesales consultant collaboration regarding findings and treatment options, medication orders and management, direct patient care, vital sign assessments and ordering, interpreting and reviewing diagnostic studies and lab tests. Aggregate critical care time includes only time during which I was engaged in work directly related to the patient?s care, as described above, whether at bedside or elsewhere in the Emergency Department. It did not include time spent performing other reported procedures or the services of residents, students, nurses or physician assistants. Discharge Plan Plan Patient Disposition: Admit Acute Care w/in Hospital Disposition Comment: Admitted to Dr. Yousif Problem List Clinical Impression: HCAP (healthcare-associated pneumonia), Leukocytosis, Sepsis, Vomiting
[2024-11-08 22:52] LABS: Lactate (Lactic Acid) 2.2 mMol/L (0.4-2.0)
[2024-11-08] MEDS: PIPER/TAZO INJ 3.375 GM in SODIUM CHLORIDE 0.9% (Popper) 50 ML IV (22:59)
[2024-11-08 23:10] LABS: Collection Type, Urine Clean Catch
[2024-11-08 23:26] LABS: Bacteria,Urine Rare; Bilirubin,Urine Negative (Negative); Blood,Urine Negative (Negative); Clarity,Urine Clear (Clear/Hazy); Color,Urine Yellow (Lt Yel-Yel); Glucose, Urine Negative (Negative); Ketones,Urine Trace (Negative); Leukocyte Esterase,Urine Positive (Negative); Nitrite,Urine Negative (Negative); PH,Urine 5.5 (5.0-7.0); Protein,Urine 1+ (Neg - Trace); RBC,Urine 5 /hpf (0-3); Specific Gravity,Urine 1.032 (1.001-1.035); Squamous Epithelial Cell,Urine < 1 /hpf (0-5); WBC,Urine 9 /hpf (0-5)
[2024-11-08 23:28] LABS: Alanine Aminotransferase 14 U/L (10-49); Albumin, Serum 4.3 gm/dL (3.4-4.8); Albumin/Globulin Ratio 1.3 (1.2-2.2); Alkaline Phosphatase 65 U/L (46-116); Anion Gap 11 (7-16); Aspartate Amino Transferase 22 U/L (0-34); BUN/Creatinine Ratio 21 Ratio (12-20); Bilirubin,Total 1.1 mg/dL (0.3-1.2); Blood Urea Nitrogen 33 mg/dL (9-23); Calcium 9.2 mg/dL (8.3-10.6); Calcium (Corrected) 9.2 mg/dL (8.5-10.1); Carbon Dioxide 24.5 mMol/L (20.0-31.0); Chloride 101 mMol/L (98-107); Creatinine (Component) 1.6 mg/dL (0.6-1.3); Globulin 3.3 gm/dL (2.3-3.5); Glucose 242 mg/dL (74-106); INR 1.3 (0.9-1.3); LDH (Lactate Dehydrogenase) 339 U/L (120-246); Lipase 35 U/L (12-53); Magnesium 1.5 mg/dL (1.6-2.6); Osmolality,Calculated 287 (275-295); Partial Thromboplastin Time 21.1 Seconds (22.0-36.0); Phosphorous 2.7 mg/dL (2.4-5.1); Potassium 4.8 mMol/L (3.4-5.1); Prothrombin Time 13.7 Seconds (9.0-12.2); Sodium 136 mMol/L (136-145); Total Protein 7.6 gm/dL (5.7-8.2); eGFR 48 See Note
[2024-11-08 23:30] LABS: Troponin I 0.046 ng/mL (0.0-0.045)
[2024-11-08 23:34] LABS: Basophils # (Auto) 0.1 Thou/mm3 (0.0-0.2); Basophils % (Auto) 0 % (0-2.5); Eosinophils % (Auto) 0 % (0-10); Hematocrit 40.1 % (41.0-53.0); Hemoglobin 13.2 g/dL (13.5-16.0); Immature Granulocytes % (Auto) 1 % (0-0); Immature Granulocytes Auto 0.28 Thou/mm3 (0.00-0.00); Lymphocytes # (Auto) 0.3 Thou/mm3 (1.0-4.8); Lymphocytes % (Auto) 1 % (10-50); Mean Corpuscular HGB Conc 32.9 g/dl (31.0-37.0); Mean Corpuscular Hemoglobin 27.8 pg (25.0-35.0); Mean Corpuscular Volume 84 fL (80-100); Monocytes # (Auto) 1.5 Thou/mm3 (0.0-0.8); Monocytes % (Auto) 5 % (0-12); Neutrophils # (Auto) 25.2 Thou/mm3 (1.8-7.7); Neutrophils % (Auto) 92 % (37-80); Nucleated Red Blood Cell % 0 /100 WBC (0); Platelet Count 212 Thou/mm3 (140-440); RDW Standard Deviation 43.8 fL (35.1-43.9); Red Blood Count 4.75 Miln/mm3 (4.50-5.90); White Blood Count 27.4 Thou/mm3 (3.8-10.6)
[2024-11-08] MEDS: Vancomycin Inj 1,000 MG in SODIUM CHLORIDE 0.9% 250 ML 250 ML 150 MG IV (23:42)
[2024-11-08 23:50] LABS: B-Type Natriuretic Peptide 239 pg/mL (0-100)
[2024-11-09] VITALS (16 sets, daily range): BP systolic 109–142; BP diastolic 49–97; PULSE 57–92; RESP 16–28; TEMP 36.4–38.3; O2SAT 93–100; BMI 42.2
--- NOTE | 2024-11-09 01:29 | PD.EVENT ---
Documentation for date of: 11/09/24 Event Note Event Note: A 68-year-old male presented to the ER with the chief complaint of vomiting. The patient reported experiencing nausea and vomiting today. He also endorsed subjective fever, chills, mild cough with scant phlegm, and generalized weakness. He reported minimal trouble breathing. The patient stated he was unaware of the fever until informed in the ER. He denied chest pain and diarrhea. He noted significant swelling and reported ongoing urine output despite being on scheduled hemodialysis. He confirmed he was due for dialysis today (Friday), managed by Dr. Bermeo. The patient has a history of HTN, DM2, CHF, CAD, COPD, AFib, seizure disorder, hyperlipidemia, morbid obesity, and prior pneumonia. He is on hemodialysis TTS schedule. Current medications include Ascorbic Acid, Aspirin, Diltiazem, Dulcolax, Mirtazapine, Novolog, Paroxetine, Zuly-Cruz, Renvela, Risperidone, Rivaroxaban, Semaglutide, Tamsulosin, and Trajenta. He uses 2 L oxygen as needed. Social history includes occasional alcohol use, no recent use. He uses a walker for mobility and currently reports increased weakness. In the ER, vital signs were: temp 102.9 F, HR 72 bpm, RR 22, BP 163/73 mmHg. Sepsis alert was called. Labs showed WBC 27.4, Hgb 13.2, Plt 212, Na 136, K 4.8, BUN 33, Cr 1.6, glucose 242, lactic acid 2.2, troponin 0.046, BNP 239. UA revealed WBC 9. CXR showed mild heart failure and findings suspicious for superimposed pneumonia at the right base. The patient was admitted for management of pneumonia and volume overload.
[2024-11-09] MEDS: Magnesium Sulfate 2 GM Ivpb 2 GM/50 ML BAG IV ×2 (01:36→03:26)
[2024-11-09 01:49] LABS: Reflex Lactate? Y
--- NOTE | 2024-11-09 02:16 | ESHP_ITS ---
Documentation for date of: 11/09/24 [facility] History of Present Illness History of present illness: The patient is a 64-year-old male with past medical history significant for hypertension, diabetes mellitus type 2, CHF, CAD, COPD, A-fib, seizure disorder, hyperlipidemia, morbid obesity and ARIANA on hemodialysis TTS schedule was brought in by ambulance to ED after developing SOB for 1 day. The patient reported that his SOB was associated with subjective fever, chills, nausea/vomiting and headache. He also reported frequency and urgency in urination. He denied any lightheadedness, chest pain, abdominal pain, any changes in bowel habit or leg swelling. He has not been able to ambulate for the past 1 day as he has been feeling weak. In the ED his vitals were significant for temperature 102.9, heart rate 72, RR 22, BP 163/73, sepsis alert was called. Labs revealed white count of 27.4, hemoglobin 13.2, PT 13.7, APTT 21.1, potassium 4.8, BUN 33, creatinine 1.6, GFR 48, blood sugar 242, lactic acid 2.2, magnesium 1.5, LDH 339, troponin 0.046, BNP 239 UA revealed protein 1+, leukocyte esterase positive, WBC 9 with rare urine bacteria. EKG revealed A-fib with VR 61, CXR was suspicious for superimposed pneumonia at right base, with mild heart failure. Patient received Zosyn 3.375 g IV x 1, vancomycin 1 g IV x 1, magnesium sulfate 2 g IV x 1. 30 cc/kg of crystalloid fluid bolus was not given because of concern for CHF. PMH: As mentioned above SHX: S/p spinal stenosis surgery of cervical vertebra, appendectomy Family history: Unremarkable Medications: Aspirin 81 Mg, diltiazem 120 Mg ER, Dulcolax, Fleet enema, milk of magnesium as needed for constipation, lidocaine patch, mirtazapine 45 Mg daily at bedtime, paroxetine 20 Mg daily, PEG 17 g as needed for constipation, Zuly- Cruz, sublaminar, risperidone 3 Mg at night, rivaroxaban 20 Mg daily, senna, tamsulosin 0.4 Mg daily, Tradjenta 5 Mg daily. Allergies: Atorvastatin, lisinopril, sulfa, trimethoprim The patient is admitted to [facility] telemetry unit for further management of acute hypoxic respiratory failure secondary to sepsis secondary to healthcare associated pneumonia. Review of Systems Review of Systems Systems Reviewed: All systems reviewed, normal except as documented Exam Vital Signs Temp Pulse Resp BP Pulse Ox O2 Del Method O2 Flow Rate 101 F H 57 L 27 H 142/79 H 95 Oxy Mask 5 11/09/24 00:02 11/09/24 01:00 11/09/24 01:00 11/09/24 01:00 11/09/24 01:00 11/09/24 01:00 11/09/24 01:00 Narrative Exam General: Elderly obese, cooperative gentleman, no acute distress, Alert and Oriented x 3 HEENT: Moist mucous membranes, oropharynx clear Neck: Supple, No masses, No JVD CVS: Irregularly irregular heart rate, No murmurs, rubs or gallops Lungs: Distant but clear to auscultation with no accessory use, no wheeze no rhonchi, saturating 94% on 5 L oxygen mask Abd: Soft, NT/ND, +BS, no organomegaly Ext: No edema, warm and well perfused Skin: No rash Psych: Appropriate mood and affect Results: Labs 11/09/24 03:03 11/08/24 22:37 Labs: Short CBC 11/08/24 Range/Units 23:27 WBC 27.4 H (3.8-10.6) Thou/mm3 Hgb 13.2 L (13.5-16.0) g/dL Hct 40.1 L (41.0-53.0) % Plt Count 212 (140-440) Thou/mm3 BMP 11/08/24 22:37 Sodium 136 Potassium 4.8 Chloride 101 Carbon Dioxide 24.5 BUN 33 H Creatinine 1.6 H Glucose 242 H Calcium 9.2 Cardiac Enzymes 11/08/24 Range/Units 22:37 Troponin I 0.046 H* (0.0-0.045) ng/mL Liver Function 11/08/24 Range/Units 22:37 Total Bilirubin 1.1 (0.3-1.2) mg/dL AST 22 (0-34) U/L ALT 14 (10-49) U/L Alkaline Phosphatase 65 (46-116) U/L Albumin 4.3 (3.4-4.8) gm/dL Urine 11/08/24 Range/Units 23:01 Urine Color Yellow (Lt Yel-Yel) Urine Clarity Clear (Clear/Hazy) Urine pH 5.5 (5.0-7.0) Ur Specific [place] 1.032 (1.001-1.035) Urine Protein 1+ A (Neg - Trace) Urine Glucose (UA) Negative (Negative) Quality Measures Quality Measures sepsis Current suspected stage: sepsis Possible source: pulmonary Blood cultures ordered: yes Antibiotic ordered: Yes Medications Home Medications and Allergies Allergies Allergy/AdvReac Type Severity Reaction Status Date / Time atorvastatin Allergy Verified 08/09/24 13:49 lisinopril Allergy Verified 08/09/24 13:49 sulfamethoxazole (From Allergy Verified 08/09/24 13:49 Bactrim) trimethoprim (From Bactrim) Allergy Verified 08/09/24 13:49 Visit Medications Acetaminophen (Acetaminophen 325 Mg Tablet) 650 mg PO Q6H PRN PRN Reason: Fever >100.4 Stop: 12/09/24 01:52 Acetaminophen (Acetaminophen 325 Mg Tablet) 650 mg PO Q6H PRN PRN Reason: PAIN SCALE 1-3 (mild Stop: 12/09/24 01:52 Hydrocodone Bitart/Acetaminophen (Hydrocodone/Apap 5/325 Tablet) 1 tab PO Q4HR PRN PRN Reason: PAIN SCALE 4-6 (Moderate Stop: 11/14/24 01:52 Albuterol/Ipratropium (Albuterol/Ipratropium (Duoneb) Rt Aspen 3 Ml Nebu) 3 ml INH Q6HRRT ASHWIN Stop: 12/09/24 06:59 Aspirin (Aspirin Ec 81 Mg Tabec) 81 mg PO QDAY ASHWIN Stop: 12/09/24 08:59 Bisacodyl (Bisacodyl 10 Mg Supp) 10 mg DC Q72H PRN; Protocol PRN Reason: constipation Stop: 12/09/24 02:14 Dextrose (Dextrose 50%-Water Inj 50 Ml Syringe) 25 ml IV Q15MIN PRN PRN Reason: BG 50-70 responsive npo pt Stop: 12/09/24 01:52 Dextrose (Dextrose 50%-Water Inj 50 Ml Syringe) 50 ml IV Q15MIN PRN PRN Reason: BG <50 OR BG <70 & pt unresponsive Stop: 12/09/24 01:52 Diltiazem HCl (Diltiazem Er 90 Mg Er Capsule) 120 mg PO X1 ONE Stop: 11/09/24 02:04 Glucagon (Glucagon Inj 1 Mg Vial) 1 mg IM Q15MIN PRN PRN Reason: BG <70, and no IV access Magnesium Sulfate (Magnesium Sulfate Ivpb) 2 gm in 50 mls @ 25 mls/hr IV X1 ONE Stop: 11/09/24 03:23 Last Admin: 11/09/24 01:36 Dose: 25 mls/hr Magnesium Sulfate (Magnesium Sulfate Ivpb) 2 gm in 50 mls @ 25 mls/hr IV X1 ONE Stop: 11/09/24 03:49 Doxycycline Hyclate 100 mg/ (Sodium Chloride) 100 mls @ 100 mls/hr IV BID ASHWIN Stop: 11/16/24 08:59 Cefepime HCl 2 gm/ Sodium (Chloride) 50 mls @ 100 mls/hr IV Q8HR ASHWIN Stop: 11/16/24 06:59 Insulin Human Lispro (Insulin Lispro (Admelog) 1 Unit/0.01 Ml Unit) 0 unit SC AC ASHWIN; Protocol Stop: 12/09/24 07:29 Lidocaine (Lidocaine 5% 1 Patch) 1 patch TOP X1 ONE Stop: 11/09/24 02:04 Magnesium Hydroxide (Milk Of Magnesia Susp 30 Ml Udc) 30 ml PO Q72H PRN; Protocol PRN Reason: Constipation Stop: 12/09/24 02:14 Mirtazapine (Mirtazapine 15 Mg Tablet) 45 mg PO HS ASHWIN Stop: 12/09/24 20:59 Ondansetron HCl (Ondansetron Inj 2 Mg/Ml Inj 2 Ml) 4 mg IV Q6HR PRN PRN Reason: NAUSEA OR VOMITING Stop: 12/08/24 22:22 Ondansetron HCl (Ondansetron Inj 2 Mg/Ml Inj 2 Ml) 4 mg IV Q6H PRN; Protocol PRN Reason: NAUSEA OR VOMITING Stop: 12/09/24 01:52 Paroxetine HCl (Paroxetine Hcl 10 Mg Tablet) 20 mg PO HS ASHWIN Stop: 12/09/24 20:59 Polyethylene Glycol (Polyethylene Glycol 17 Gm Packet) 17 gm PO QDAY ASHWIN Stop: 12/09/24 08:59 Risperidone (Risperidone 1 Mg Tablet) 3 mg PO HS ASHWIN Stop: 12/09/24 20:59 Rivaroxaban (Rivaroxaban 10 Mg Tablet) 20 mg PO QDAY ASHWIN Stop: 12/09/24 08:59 Sennosides (Senna Tablet) 1 tab PO QDAY PRN; Protocol PRN Reason: CONSTIPATION Stop: 12/09/24 02:08 Sevelamer Carbonate (Sevelamer Carbonate 800 Mg Tablet) 800 mg PO DAILY ASHWIN Stop: 12/09/24 08:59 Sodium Chloride (Sodium Chloride Rt 10% 15 Ml Nebu) 5 ml INH X1 ONE Stop: 11/09/24 01:54 Tamsulosin HCl (Tamsulosin Hcl 0.4 Mg Capsule) 0.4 mg PO QDAY ASHWIN Stop: 12/09/24 08:59 Discontinued Medications Enoxaparin Sodium (Enoxaparin Sod Inj 40 Mg/0.4 Ml Syringe) 40 mg SC QDAY ASHWIN Stop: 11/23/24 08:59 Piperacillin Sod/Tazobactam (Sod 3.375 gm/ Sodium Chloride) 50 mls @ 100 mls/hr IV X1 ONE Stop: 11/08/24 23:14 Last Infusion: 11/08/24 23:42 Dose: Infused Vancomycin HCl 1,000 mg/ (Sodium Chloride) 250 mls @ 150 mls/hr IV X1 ONE Stop: 11/09/24 00:05 Last Infusion: 11/09/24 01:23 Dose: Infused Assessment & Plan Plan The patient is a 64-year-old male with past medical history significant for hypertension, diabetes mellitus type 2, CHF, CAD, COPD, A-fib, seizure disorder, hyperlipidemia, morbid obesity and ARIANA on hemodialysis TTS schedule was brought in by ambulance to ED after developing SOB for 1 day. The patient is admitted to [facility] telemetry unit for further management of acute hypoxic respiratory failure secondary to sepsis secondary to healthcare associated pneumonia. #Acute hypoxic respiratory failure 2/2 #Sepsis 2/2 #Healthcare associated pneumonia #Lactic acidosis Patient presented with SOB, has been on [facility], and was requiring 5 L oxygen via facemask for proper oxygen saturation. Met 2/4 SIRS criteria with temperature 102.9 and white count of 27.4, with source of infection as right-sided pneumonia and UTI Lactic acid 2.2, LDH 339 Received Zosyn 3.375 g IV x 1, vancomycin 1 g IV x 1, magnesium sulfate 2 g IV x 1. Did not receive 30 cc/kg of crystalloid fluid bolus because of concern for CHF - Started on cefepime 2 g 3 times daily - Started on doxycycline 100 Mg twice daily - Blood and sputum culture ordered - Urine culture ordered - Trend lactic acid every 4 hourly - DuoNeb every 6 hourly scheduled - Daily a.m. labs for CBC, CMP and electrolytes - Oxygen as needed, taper down as tolerated #ARIANA on hemodialysis TTS The patient developed ARIANA on last admission on July 2024 and was started on hemodialysis Currently renal function much improved with creatinine of 1.6 and GFR 48, and he is bringing out urine - Avoid nephrotoxic drugs - Renally dose medications - Dr. Bermeo consulted, appreciate recommendations - Daily a.m. labs for CMP and electrolytes #Complicated UTI UA significant for leukocyte esterase positive, urine bacteria and significant WBC He also reported frequency and urgency - On cefepime 2 g every 8 hourly for HCAP #Diabetes mellitus type 2 A1c ordered - Start on sliding scale insulin #Hypomagnesemia Presented with magnesium level of 1.5 - Received 4 g magnesium sulfate - Daily a.m. labs for magnesium, replete as needed #Atrial fibrillation Patient has history of atrial fibrillation - Resumed home diltiazem ER 120 Mg daily - Resumed rivaroxaban 20 Mg daily - Daily a.m. labs for electrolytes, maintain potassium greater than 4 and magnesium greater than 2 #NSTEMI, likely type II Presented with troponin of 0.046 - Trend troponin until delta is achieved #CAD #CHF - On aspirin 81 Mg daily - Reconcile home medications #Depression - Started on mirtazapine 45 Mg daily at night - Started on paroxetine 20 Mg daily #Coagulopathy PT 13.7, APTT 21.1 Secondary to sepsis - Monitor daily a.m. labs for PT and PTT Health maintenance: Dispo: Patient admitted to telemetry unit for further management of acute hypoxic respiratory failure secondary to sepsis secondary to healthcare associated pneumonia DVT prophylaxis: On rivaroxaban 20 Mg daily Diet: Renal diet with 2000 cc of fluid restriction Code: Full code The patient's management plan was discussed with my attending physician MD Redd Hale MD, PGY2 Attending Provider Attestation/Addendum Pt was evaluated and plan formulated together with the housestaff team. I have reviewed the residents note above and agree with most of its content. Please refer to the residents note for additional details.
[2024-11-09 03:27] LABS: Basophils # (Auto) 0.1 Thou/mm3 (0.0-0.2); Basophils % (Auto) 0 % (0-2.5); Eosinophils % (Auto) 0 % (0-10); Hematocrit 38.4 % (41.0-53.0); Hemoglobin 12.5 g/dL (13.5-16.0); Immature Granulocytes % (Auto) 2 % (0-0); Immature Granulocytes Auto 0.44 Thou/mm3 (0.00-0.00); Lactic Acid, 3 HR 1.6 mMol/L (0.4-2.0); Lymphocytes # (Auto) 0.3 Thou/mm3 (1.0-4.8); Lymphocytes % (Auto) 1 % (10-50); Mean Corpuscular HGB Conc 32.6 g/dl (31.0-37.0); Mean Corpuscular Hemoglobin 27.8 pg (25.0-35.0); Mean Corpuscular Volume 85 fL (80-100); Monocytes # (Auto) 1.7 Thou/mm3 (0.0-0.8); Monocytes % (Auto) 6 % (0-12); Neutrophils # (Auto) 27.4 Thou/mm3 (1.8-7.7); Neutrophils % (Auto) 92 % (37-80); Nucleated Red Blood Cell % 0 /100 WBC (0); Platelet Count 213 Thou/mm3 (140-440); RDW Standard Deviation 44.7 fL (35.1-43.9); White Blood Count 29.9 Thou/mm3 (3.8-10.6)
--- NOTE | 2024-11-09 03:51 | PC.RT ---
sputum collected and sent to lab in ER.
[2024-11-09 04:05] LABS: Glucose Estimated Average 151 mg/dL (80-131); Hemoglobin A1C 6.9 % Hgb (4.8-6.0)
[2024-11-09 04:06] LABS: Alanine Aminotransferase 10 U/L (10-49); Albumin/Globulin Ratio 1.3 (1.2-2.2); Alkaline Phosphatase 52 U/L (46-116); Anion Gap 9 (7-16); Aspartate Amino Transferase 16 U/L (0-34); BUN/Creatinine Ratio 18 Ratio (12-20); Bilirubin,Total 1.3 mg/dL (0.3-1.2); Blood Urea Nitrogen 35 mg/dL (9-23); Carbon Dioxide 24.1 mMol/L (20.0-31.0); Cardiac Risk Estimate 3.3 RATIO (4.0-6.7); Chloride 102 mMol/L (98-107); Cholesterol 127 mg/dL (132-200); Creatinine (Component) 1.9 mg/dL (0.6-1.3); Estimated Creatinine Clearance 60.6 mL/min (>60); Globulin 3.1 gm/dL (2.3-3.5); Glucose 270 mg/dL (74-106); HDL Cholesterol 39 mg/dL (40-60); LDL Cholesterol,Calculated 63 mg/dL (0-130); Magnesium 1.8 mg/dL (1.6-2.6); Osmolality,Calculated 288 (275-295); Potassium 4.9 mMol/L (3.4-5.1); Sodium 135 mMol/L (136-145); Thyroid Stimulating Hormone 0.61 uIU/mL (0.55-4.78); Total Protein 7.1 gm/dL (5.7-8.2); Triglycerides 127 mg/dL (30-150); eGFR 39 See Note
[2024-11-09] MEDS: INSULIN LISPRO (AdmeLOG) 1 UNIT/0.01 ML UNIT 4 UNIT SC (04:07)
[2024-11-09 04:09] LABS: Troponin I 0.066 ng/mL (0.0-0.045)
[2024-11-09 04:45] LABS: Base Excess 1 (-3-3); HCO3 27 mEq/L (20-26); Inspired Oxygen, FIO2 52 %; O2 Saturation 99 % (91-98); PCO2 49 mmHg (32.0-48.0); PO2 124 mmHg (83-108); pH, Arterial 7.35 (7.35-7.45)
[2024-11-09 04:46] LABS: Allen Test Performed/OK; Puncture Site Right Radial
[2024-11-09] MEDS: CEFEPIME INJ 2 GM in SODIUM CHLORIDE 0.9% (Popper) 50 ML IV ×3 (06:12→23:27)
[2024-11-09] MEDS: ALBUTEROL/IPRATROPIUM (Duoneb) RT SOL 3 ML NEBU INH ×2 (06:50→14:15)
[2024-11-09] MEDS: INSULIN LISPRO (AdmeLOG) 1 UNIT/0.01 ML UNIT SC ×2 (07:25→11:59)
[2024-11-09] MEDS: SEVELAMER CARBONATE 800 MG TABLET PO ×3 (07:52→17:00)
--- NOTE | 2024-11-09 09:25 | ESCONSULT_ITS ---
HPI Data of Consult Consult date: 11/09/24 Requesting Physician: Oscar Oliveira DO Admitting Provider: Barry Yousif MD Attending Provider: Oscar Oliveira DO Primary Care Provider: Johnnie Yousif MD ([facility]) Consult Narrative Reason for consult: ARIANA on CKD History of present illness: Mr. Bella is a 64-year-old male with MHx of CKD since July 2024, newly on HD TTS for cardiorenal syndrome, T2DM, HTN, CHF, CAD, COPD, A-fib, seizure disorder, HLD, morbid obesity, presenting with SOB associated with fever, chills, nausea and vomiting and headaches. Complained of urinary symptoms including urgency and frequency. He was admitted for AHRF in setting of sepsis pneumonia. He has been on HD TTS since July 2024 when he developed an ARIANA during admission. Currently labs are significant for sodium 135, CR 1.6 > 1.9, BUN 35, GFR 48 > 39, GLUCOSE 270, A1c 6.9, TB 1.3, troponin 0.046 > 0.066, BNP 239, cholesterol 127, WBC 29.9, Hgb 12.5, PLT 213. Showing positive leukocyte ESTRACE, RBC 5, WBC 9, protein 1+. CXR suspicious for pneumonia in the right base. EKG showing A-fib with HR 61, no acute ST changes. Currently on ZOSYN and VANCOMYCIN. Nephrology consulted for inpatient hemodialysis. PMH: As mentioned above SHX: S/p spinal stenosis surgery of cervical vertebra, appendectomy Family history: Unremarkable Medications: Aspirin 81 Mg, diltiazem 120 Mg ER, Dulcolax, Fleet enema, milk of magnesium as needed for constipation, lidocaine patch, mirtazapine 45 Mg daily at bedtime, paroxetine 20 Mg daily, PEG 17 g as needed for constipation, Zuly- Cruz, sublaminar, risperidone 3 Mg at night, rivaroxaban 20 Mg daily, senna, tamsulosin 0.4 Mg daily, Tradjenta 5 Mg daily. 11/09/2024 examined at bedside. Feels better today. Denies fever, chills, headaches, chest pain, sob, cough, GI or urinary symptoms. Skin around dialysis catheter showing elevated erythema, however nontender, no purulent discharge. Slightly worsening CR 1.6 > 1.9, likely dehydration. Agree with 500 cc fluids. No urine output recorded. Possibly he may come off HD given improvement of renal function since Jul 2023. No plan for HD today. cc:: cc: Oscar Oliveira, DO Exam Vital Signs Temp Pulse Resp BP Pulse Ox O2 Del Method O2 Flow Rate 97.9 F 79 21 H 135/97 H 99 Nasal Cannula 7 11/09/24 07:07 11/09/24 08:00 11/09/24 07:07 11/09/24 07:07 11/09/24 07:07 11/09/24 07:07 11/09/24 07:07 Narrative Exam General: Normal appearing adult male, NAD. HEENT: Moist mucous membranes, oropharynx clear Neck: Supple, No masses, No JVD CVS: Irregularly irregular heart rate, No murmurs, rubs or gallops Lungs: CTAB, no W RR. Abd: Soft, NT/ND, +BS, no organomegaly Ext: No edema, warm and well perfused Skin: No rash Psych: Appropriate mood and affect Results Labs 11/10/24 12:56 11/10/24 05:26 Labs: Short CBC 11/08/24 11/09/24 Range/Units 23:27 03:03 WBC 27.4 H 29.9 H (3.8-10.6) Thou/mm3 Hgb 13.2 L 12.5 L (13.5-16.0) g/dL Hct 40.1 L 38.4 L (41.0-53.0) % Plt Count 212 213 (140-440) Thou/mm3 BMP 11/08/24 11/09/24 22:37 03:03 Sodium 136 135 L Potassium 4.8 4.9 Chloride 101 102 Carbon Dioxide 24.5 24.1 BUN 33 H 35 H Creatinine 1.6 H 1.9 H Glucose 242 H 270 H Calcium 9.2 9.0 Cardiac Enzymes 11/08/24 11/09/24 Range/Units 22:37 03:03 Troponin I 0.046 H* 0.066 H* (0.0-0.045) ng/mL Liver Function 11/08/24 11/09/24 Range/Units 22:37 03:03 Total Bilirubin 1.1 1.3 H (0.3-1.2) mg/dL AST 22 16 (0-34) U/L ALT 14 10 (10-49) U/L Alkaline Phosphatase 65 52 (46-116) U/L Albumin 4.3 4.0 (3.4-4.8) gm/dL Urine 11/08/24 Range/Units 23:01 Urine Color Yellow (Lt Yel-Yel) Urine Clarity Clear (Clear/Hazy) Urine pH 5.5 (5.0-7.0) Ur Specific [place] 1.032 (1.001-1.035) Urine Protein 1+ A (Neg - Trace) Urine Glucose (UA) Negative (Negative) ABG Interpretation ABG results: 11/09/24 04:38 ABG pH 7.35 ABG pCO2 49 H ABG pO2 124 H ABG HCO3 27 H ABG O2 Saturation 99 H ABG Base Excess 1 Quality Measures Quality Measures sepsis Current suspected stage: sepsis Possible source: pulmonary Blood cultures ordered: yes Antibiotic ordered: Yes Medications Home Medications and Allergies Home Medications ?Medication ?Instructions ?Recorded ?Confirmed ?Type aspirin 81 mg chewable tablet 81 mg PO QDAY 11/09/24 0 11/09/24 History bisacodyl 10 mg rectal suppository 10 mg OK Q3D PRN co nstipation 11/09/24 11/09/24 History insulin aspar prt-insulin aspart 1 sliding scale dose subcut 11/09/24 11/09/24 History 100 unit/mL (70-30) subcutaneous USEASDIRECTD soln (Novolog Mix 70-30 U-100 Insuln) magnesium hydroxide 400 mg/5 mL 30 ml PO Q3D PRN const ipation 11/09/24 11/09/24 History oral suspension (Milk of Magnesia) risperidone 3 mg tablet (Risperdal) 3 mg PO QDAY 11/0911/09/24 History rivaroxaban 20 mg tablet 20 mg PO QDAY 11/09/2411/09 History sevelamer carbonate 800 mg tablet 800 mg PO TID 11/09/24 History (Renvela) sodium phosphates 19 gram-7 118 ml OK Q3D PRN constipa tion 11/09/24 11/09/24 History gram/118 mL enema (Enema) tamsulosin 0.4 mg capsule 0.4 mg PO HS 11/09/24 History vitamin B complex-vitamin C-folic 1 tab PO QDAY 11/09/24 History acid 0.8 mg tablet (Dialyvite 800) Allergies Allergy/AdvReac Type Severity Reaction Status Date / Time atorvastatin Allergy Verified 08/09/24 13:49 lisinopril Allergy Verified 08/09/24 13:49 sulfamethoxazole (From Allergy Verified 08/09/24 13:49 Bactrim) trimethoprim (From Bactrim) Allergy Verified 08/09/24 13:49 Visit Medications Acetaminophen (Acetaminophen 325 Mg Tablet) 650 mg PO Q6H PRN PRN Reason: Fever >100.4 Stop: 12/09/24 01:52 Acetaminophen (Acetaminophen 325 Mg Tablet) 650 mg PO Q6H PRN PRN Reason: PAIN SCALE 1-3 (mild Stop: 12/09/24 01:52 Hydrocodone Bitart/Acetaminophen (Hydrocodone/Apap 5/325 Tablet) 1 tab PO Q4HR PRN PRN Reason: PAIN SCALE 4-6 (Moderate Stop: 11/14/24 01:52 Albuterol/Ipratropium (Albuterol/Ipratropium (Duoneb) Rt Aspen 3 Ml Nebu) 3 ml INH Q6HRRT [facility] Stop: 12/09/24 06:59 Last Admin: 11/09/24 06:50 Dose: 3 ml Aspirin (Aspirin Ec 81 Mg Tabec) 81 mg PO QDAY [facility] Stop: 12/09/24 08:59 Bisacodyl (Bisacodyl 10 Mg Supp) 10 mg OK Q72H PRN; Protocol PRN Reason: constipation Stop: 12/09/24 02:14 Dextrose (Dextrose 50%-Water Inj 50 Ml Syringe) 25 ml IV Q15MIN PRN PRN Reason: BG 50-70 responsive npo pt Stop: 12/09/24 01:52 Dextrose (Dextrose 50%-Water Inj 50 Ml Syringe) 50 ml IV Q15MIN PRN PRN Reason: BG <50 OR BG <70 & pt unresponsive Stop: 12/09/24 01:52 Diltiazem HCl (Diltiazem Cd 120 Mg Capcr) 120 mg PO QDAY [facility] Stop: 12/09/24 08:59 Glucagon (Glucagon Inj 1 Mg Vial) 1 mg IM Q15MIN PRN PRN Reason: BG <70, and no IV access Doxycycline Hyclate 100 mg/ (Sodium Chloride) 100 mls @ 100 mls/hr IV BID [facility] Stop: 11/16/24 08:59 Cefepime HCl 2 gm/ Sodium (Chloride) 50 mls @ 100 mls/hr IV Q8HR ASHWIN Stop: 11/16/24 05:59 Last Admin: 11/09/24 06:12 Dose: 100 mls/hr Insulin Human Lispro (Insulin Lispro (Admelog) 1 Unit/0.01 Ml Unit) 0 unit SC AC ASHWIN; Protocol Stop: 12/09/24 07:29 Last Admin: 11/09/24 07:25 Dose: 2 unit Magnesium Hydroxide (Milk Of Magnesia Susp 30 Ml Udc) 30 ml PO Q72H PRN; Protocol PRN Reason: Constipation Stop: 12/09/24 02:14 Mirtazapine (Mirtazapine 15 Mg Tablet) 45 mg PO HS [facility] Stop: 12/09/24 20:59 Ondansetron HCl (Ondansetron Inj 2 Mg/Ml Inj 2 Ml) 4 mg IV Q6HR PRN PRN Reason: NAUSEA OR VOMITING Stop: 12/08/24 22:22 Ondansetron HCl (Ondansetron Inj 2 Mg/Ml Inj 2 Ml) 4 mg IV Q6H PRN; Protocol PRN Reason: NAUSEA OR VOMITING Stop: 12/09/24 01:52 Paroxetine HCl (Paroxetine Hcl 10 Mg Tablet) 20 mg PO HS [facility] Stop: 12/09/24 20:59 Polyethylene Glycol (Polyethylene Glycol 17 Gm Packet) 17 gm PO QDAY ASHWIN Stop: 12/09/24 08:59 Risperidone (Risperidone 1 Mg Tablet) 3 mg PO HS [facility] Stop: 12/09/24 20:59 Rivaroxaban (Rivaroxaban 10 Mg Tablet) 20 mg PO QPM [facility] Stop: 12/09/24 20:59 Sennosides (Senna Tablet) 1 tab PO QDAY PRN; Protocol PRN Reason: CONSTIPATION Stop: 12/09/24 02:08 Sevelamer Carbonate (Sevelamer Carbonate 800 Mg Tablet) 800 mg PO TIDWM [facility] Stop: 12/09/24 07:59 Last Admin: 11/09/24 07:52 Dose: 800 mg Tamsulosin HCl (Tamsulosin Hcl 0.4 Mg Capsule) 0.4 mg PO QDAY [facility] Stop: 12/09/24 08:59 Discontinued Medications Diltiazem HCl (Diltiazem Cd 120 Mg Capcr) 120 mg PO X1 ONE Stop: 11/09/24 03:01 Enoxaparin Sodium (Enoxaparin Sod Inj 40 Mg/0.4 Ml Syringe) 40 mg SC QDAY ASHWIN Stop: 11/23/24 08:59 Piperacillin Sod/Tazobactam (Sod 3.375 gm/ Sodium Chloride) 50 mls @ 100 mls/hr IV X1 ONE Stop: 11/08/24 23:14 Last Infusion: 11/08/24 23:42 Dose: Infused Vancomycin HCl 1,000 mg/ (Sodium Chloride) 250 mls @ 150 mls/hr IV X1 ONE Stop: 11/09/24 00:05 Last Infusion: 11/09/24 01:23 Dose: Infused Magnesium Sulfate (Magnesium Sulfate Ivpb) 2 gm in 50 mls @ 25 mls/hr IV X1 ONE Stop: 11/09/24 03:23 Last Admin: 11/09/24 01:36 Dose: 25 mls/hr Magnesium Sulfate (Magnesium Sulfate Ivpb) 2 gm in 50 mls @ 25 mls/hr IV X1 ONE Stop: 11/09/24 03:49 Last Admin: 11/09/24 03:26 Dose: 25 mls/hr Sodium Chloride (Ns) 1,000 mls @ 999 mls/hr IV .Q1H1M ASHWIN Stop: 11/09/24 09:10 Insulin Human Lispro (Insulin Lispro (Admelog) 1 Unit/0.01 Ml Unit) 4 unit SC X1 ONE Stop: 11/09/24 03:35 Last Admin: 11/09/24 04:07 Dose: 4 unit Lidocaine (Lidocaine 5% 1 Patch) 1 patch TOP X1 ONE Stop: 11/09/24 02:04 Last Admin: 11/09/24 03:22 Dose: Not Given Sevelamer Carbonate (Sevelamer Carbonate 800 Mg Tablet) 800 mg PO DAILY [facility] Stop: 12/09/24 08:59 Sodium Chloride (Sodium Chloride Rt 10% 15 Ml Nebu) 5 ml INH X1 ONE Stop: 11/09/24 01:54 Assessment & Plan Plan 40-year-old male with MHx of CKD since July 2024, newly on HD TTS, T2DM, HTN, CHF, CAD, COPD, A-fib, seizure disorder, HLD, morbid obesity, presenting with SOB associated with fever, chills, nausea and vomiting and headaches. Complained of urinary symptoms including urgency and frequency. He was admitted for AHRF in setting of sepsis pneumonia. Attempt to discontinue HD. Monitor renal function and HAILEE. Encourage oral fluids, avoid dehyration. ARIANA on ?CKD stage 3B He has been on HD TTS with Dr. Dahl since Jul 2023 following ARIANA. At the time, CR 6.5, EGFR 11. Renal function likely showing improvement with CR 1.6 > 1.9 and EGFR 39. Likely ARIANA in settings of dehydration and/or UTI There is a chance he maybe taken of HD given improvement in renal function Will monitor urine output and renal function. Agree with 500 cc NS bolus, encourage fluid hydration. ? Renally dose meds, avoid overdiuresis and NEPHROTOXINS ? Daily CMP Acute hypoxic respiratory failure 2/2 Sepsis 2/2 Healthcare associated pneumonia Lactic acidosis Complicated UTI Diabetes mellitus type 2 Hypomagnesemia Atrial fibrillation NSTEMI, likely type II CAD CHF Depression Coagulopathy ? Managed by primary team Thank you for the opportunity to participate in the patient's care. Case was discussed with attending, Dr. Bermeo. Robina Galvan DO PGYI Attending Provider Attestation/Addendum Patient seen and examined with resident physician Dr. Quarles. Note reviewed, agree with findings and recommendations. Patient had been receiving dialysis for the last 3 months for cardiorenal syndrome. Started to make urine. Clinically euvolemic. Creatinine markedly improved to 1.9. Hold dialysis. Admitted with low blood pressure-suspect catheter related bacteremia. Pending cultures can DC dialysis and DC dialysis catheter tomorrow. On broad-spectrum antibiotics. Thank you Carter for allowing me to participate in the care of Mr. Bella
[2024-11-09] MEDS: TAMSULOSIN HCL 0.4 MG CAPSULE PO (09:41)
[2024-11-09] MEDS: ACETAMINOPHEN 325 MG TABLET 650 MG PO ×2 (09:41→17:56)
[2024-11-09] MEDS: DOXYCYCLINE INJ 100 MG in SODIUM CHLORIDE 0.9% (POP) 100 ML IV ×2 (09:42→22:09)
[2024-11-09] MEDS: DILTIAZEM CD 120 MG CAPCR PO (09:44)
[2024-11-09] MEDS: ASPIRIN EC 81 MG TABEC PO (09:44)
[2024-11-09] MEDS: SODIUM CHLORIDE 0.9% 1000 ML 500 ML 999 ML IV (10:51)
[2024-11-09] MEDS: INSULIN LISPRO (AdmeLOG) 1 UNIT/0.01 ML UNIT 3 UNIT SC ×3 (12:00→22:03)
--- NOTE | 2024-11-09 19:37 | PD.RESPRO ---
Documentation for date of: 11/09/24 Subjective Subjective Interval history: Patient examined at bedside,. Has no major complaints. Saturating adequately on room air, blood sugars elevated, vital stable. Leukocytosis worsened to 30, creatinine 1.9, A1c 6.9. Nephrology was consulted as patient undergoes hemodialysis. Given improvement in renal function, patient may be taken off dialysis. He was given 500 cc bolus and encouraged for oral hydration for treatment of ARIANA on CKD. Continue cefepime and doxycycline for treatment of healthcare associated pneumonia. Blood cultures and MRSA nares are pending. Start patient on 10 units glargine, 3 units lispro 3 times daily, continue sliding scale insulin. Exam Vital Signs Temp Pulse Resp BP Pulse Ox O2 Del Method O2 Flow Rate 98.6 F 87 16 109/69 98 Nasal Cannula 1 11/09/24 16:00 11/09/24 19:06 11/09/24 19:06 11/09/24 16:00 11/09/24 19:06 11/09/24 16:00 11/09/24 19:06 Narrative Exam General: Elderly male, obese, no acute distress, cooperative HEENT: NCAT, No JVD noted. Mucosa moist. Pupils are equal and reactive to light bilaterally Cardiovascular: Normal S1 and S2. Regular rate and rhythm. Respiratory: Lungs are clear to auscultation bilaterally. No wheezing or crackles heard. Abdomen: Soft, nontender, not distended, normal bowel sounds. Skin: Warm to touch, dry, lower extremity venous stasis discoloration Musculoskeletal: No gross injuries. Able to move all 4 extremities. No pitting edema Neuro: Alert and oriented x3. No focal neuro deficits. Psych: Normal affect and mood Objective Labs 11/10/24 12:56 11/10/24 05:26 Labs: Laboratory Results - last 24 hr 11/08/24 11/08/24 11/08/24 22:37 23:01 23:27 WBC 27.4 H RBC 4.75 Hgb 13.2 L Hct 40.1 L MCV 84 MCH 27.8 MCHC 32.9 RDW Std Deviation 43.8 Plt Count 212 Neut % (Auto) 92 H Lymph % (Auto) 1 L [place] % (Auto) 5 Eos % (Auto) 0 Baso % (Auto) 0 Neut # (Auto) 25.2 H Lymph # (Auto) 0.3 L [place] # (Auto) 1.5 H Eos # (Auto) 0.0 Baso # (Auto) 0.1 Immature Gran # (Auto) 0.28 H Absolute Nucleated RBC 0.00 Immature Gran % 1 H Nucleated RBC % 0 PT 13.7 H INR 1.3 APTT 21.1 L Puncture Site ABG pH ABG pCO2 ABG pO2 ABG HCO3 ABG O2 Saturation ABG Base Excess FiO2 Sodium 136 Potassium 4.8 Chloride 101 Carbon Dioxide 24.5 Anion Gap 11 BUN 33 H Creatinine 1.6 H Estim Creat Clear Calc Not Performed. eGFR 48 L BUN/Creatinine Ratio 21 H Glucose [address] Glu mg/dL Hemoglobin A1c Calculated Osmolality 287 Lactic Acid 2.2 H Calcium 9.2 Corrected Calcium 9.2 Phosphorus 2.7 Magnesium 1.5 L Total Bilirubin 1.1 AST 22 ALT 14 Alkaline Phosphatase 65 Lactate Dehydrogenase 339 H Troponin I 0.046 H* B-Natriuretic Peptide 239 H Total Protein 7.6 Albumin 4.3 Globulin 3.3 Albumin/Globulin Ratio 1.3 Triglycerides Cholesterol LDL Cholesterol, Calc HDL Cholesterol Cholesterol/HDL Ratio Lipase 35 Procalcitonin 0.40 TSH Ur Collection Type Clean Catch Urine Color Yellow Urine Clarity Clear Urine pH 5.5 Ur Specific [place] 1.032 Urine Protein 1+ A Urine Glucose (UA) Negative Urine Ketones Trace Urine Blood Negative Urine Nitrite Negative Urine Bilirubin Negative Urine Urobilinogen (Auto) 2.0 Ur Leukocyte Esterase Positive Urine RBC 5 H Urine WBC 9 H Ur Squamous Epith Cells < 1 Urine Bacteria Rare 11/09/24 11/09/24 11/09/24 03:03 04:38 08:08 WBC 29.9 H RBC 4.50 Hgb 12.5 L Hct 38.4 L MCV 85 MCH 27.8 MCHC 32.6 RDW Std Deviation 44.7 H Plt Count 213 Neut % (Auto) 92 H Lymph % (Auto) 1 L [place] % (Auto) 6 Eos % (Auto) 0 Baso % (Auto) 0 Neut # (Auto) 27.4 H Lymph # (Auto) 0.3 L [place] # (Auto) 1.7 H Eos # (Auto) 0.0 Baso # (Auto) 0.1 Immature Gran # (Auto) 0.44 H Absolute Nucleated RBC 0.00 Immature Gran % 2 H Nucleated RBC % 0 PT INR APTT Puncture Site Right Radial ABG pH 7.35 ABG pCO2 49 H ABG pO2 124 H ABG HCO3 27 H ABG O2 Saturation 99 H ABG Base Excess 1 FiO2 52 Sodium 135 L Potassium 4.9 Chloride 102 Carbon Dioxide 24.1 Anion Gap 9 BUN 35 H Creatinine 1.9 H Estim Creat Clear Calc 60.6 L eGFR 39 L BUN/Creatinine Ratio [address]ucose [address] Glu mg/dL 151 H Hemoglobin A1c 6.9 H Calculated Osmolality 288 Lactic Acid 1.6 Calcium 9.0 Corrected Calcium 9.0 Phosphorus Magnesium 1.8 Total Bilirubin 1.3 H AST 16 ALT 10 Alkaline Phosphatase 52 Lactate Dehydrogenase Troponin I 0.066 H* 0.070 H* B-Natriuretic Peptide Total Protein 7.1 Albumin 4.0 Globulin 3.1 Albumin/Globulin Ratio 1.3 Triglycerides 127 Cholesterol 127 L LDL Cholesterol, Calc 63 HDL Cholesterol 39 L Cholesterol/HDL Ratio 3.3 L Lipase Procalcitonin TSH 0.61 Ur Collection Type Urine Color Urine Clarity Urine pH Ur Specific [place] Urine Protein Urine Glucose (UA) Urine Ketones Urine Blood Urine Nitrite Urine Bilirubin Urine Urobilinogen (Auto) Ur Leukocyte Esterase Urine RBC Urine WBC Ur Squamous Epith Cells Urine Bacteria 11/09/24 14:13 WBC RBC Hgb Hct MCV MCH MCHC RDW Std Deviation Plt Count Neut % (Auto) Lymph % (Auto) [place] % (Auto) Eos % (Auto) Baso % (Auto) Neut # (Auto) Lymph # (Auto) [place] # (Auto) Eos # (Auto) Baso # (Auto) Immature Gran # (Auto) Absolute Nucleated RBC Immature Gran % Nucleated RBC % PT INR APTT Puncture Site ABG pH ABG pCO2 ABG pO2 ABG HCO3 ABG O2 Saturation ABG Base Excess FiO2 Sodium Potassium Chloride Carbon Dioxide Anion Gap BUN Creatinine Estim Creat Clear Calc eGFR BUN/Creatinine Ratio Glucose Estimated Ave Glu mg/dL Hemoglobin A1c Calculated Osmolality Lactic Acid Calcium Corrected Calcium Phosphorus Magnesium Total Bilirubin AST ALT Alkaline Phosphatase Lactate Dehydrogenase Troponin I 0.080 H* B-Natriuretic Peptide Total Protein Albumin Globulin Albumin/Globulin Ratio Triglycerides Cholesterol LDL Cholesterol, Calc HDL Cholesterol Cholesterol/HDL Ratio Lipase Procalcitonin TSH Ur Collection Type Urine Color Urine Clarity Urine pH Ur Specific [place] Urine Protein Urine Glucose (UA) Urine Ketones Urine Blood Urine Nitrite Urine Bilirubin Urine Urobilinogen (Auto) Ur Leukocyte Esterase Urine RBC Urine WBC Ur Squamous Epith Cells Urine Bacteria ABG Interpretation ABG results: 11/09/24 04:38 ABG pH 7.35 ABG pCO2 49 H ABG pO2 124 H ABG HCO3 27 H ABG O2 Saturation 99 H ABG Base Excess 1 Quality Measures Quality Measures sepsis Current suspected stage: sepsis Possible source: pulmonary Blood cultures ordered: yes Antibiotic ordered: Yes Assessment & Plan Assessment Current Active Medications: Generic Name Dose Route Start Last Admin Trade Name Freq PRN Reason Stop Dose Admin Acetaminophen 650 mg 11/09/24 01:53 Acetaminophen 325 Mg Tablet PO 12/09/24 01:52 Q6H PRN Fever >100.4 Acetaminophen 650 mg 11/09/24 01:53 11/09/24 17:56 Acetaminophen 325 Mg Tablet PO 12/09/24 01:52 650 mg Q6H PRN Administration PAIN SCALE 1-3 (mild Hydrocodone Bitart/Acetaminophen 1 tab 11/09/24 01:53 Hydrocodone/Apap 5/325 Tablet PO 11/14/24 01:52 Q4HR PRN PAIN SCALE 4-6 (Moderate Albuterol/Ipratropium 3 ml 11/09/24 07:00 11/09/24 14:15 Albuterol/Ipratropium (Duoneb) Rt [place] 3 Ml Nebu INH 12/09/24 06:59 3 ml Q6HRRT ASHWIN Administration Albuterol/Ipratropium 3 ml 11/09/24 14:20 Albuterol/Ipratropium (Duoneb) Rt [place] 3 Ml Nebu INH 12/09/24 18:59 Q6HRRT PRN WHEEZING Aspirin 81 mg 11/09/24 09:00 11/09/24 09:44 Aspirin Ec 81 Mg Tabec PO 12/09/24 08:59 81 mg QDAY ASHWIN Administration Bisacodyl 10 mg 11/09/24 02:03 Bisacodyl 10 Mg Supp [place] 12/09/24 02:14 Q72H PRN constipation Protocol Dextrose 25 ml 11/09/24 01:53 Dextrose 50%-Water Inj 50 Ml Syringe IV 12/09/24 01:52 Q15MIN PRN BG 50-70 responsive npo pt Dextrose 50 ml 11/09/24 10:46 Dextrose 50%-Water Inj 50 Ml Syringe IV 12/09/24 10:45 Q15MIN PRN BG <50 OR BG <70 & pt unresponsive Diltiazem HCl 120 mg 11/09/24 09:00 04/15/25 09:44 Diltiazem Cd 120 Mg Capcr PO 12/09/24 08:59 120 mg QDAY ASHWIN Administration Glucagon 1 mg 11/09/24 10:46 Glucagon Inj 1 Mg Vial IM Q15MIN PRN BG <70, and no IV access Doxycycline Hyclate 100 mg/ 100 mls @ 100 mls/hr 11/09/24 09:00 11/09/24 10:42 Sodium Chloride IV 11/16/24 08:59 Infused BID ASHWIN Infusion Cefepime HCl 2 gm/ Sodium 50 mls @ 100 mls/hr 11/09/24 06:00 11/09/24 14:02 Chloride IV 11/16/24 05:59 Infused Q8HR ASHWIN Infusion Insulin Glargine 10 unit 11/09/24 21:00 Insulin Glargine (Lantus) 5 Unit/0.05 Ml (Per 5 Units) SC 12/09/24 20:59 HS ASHWIN Insulin Human Lispro 3 unit 11/09/24 11:30 11/09/24 17:00 Insulin Lispro (Admelog) 1 Unit/0.01 Ml Unit SC 12/09/24 11:29 3 unit ACHS ASHWIN Administration Insulin Human Lispro 0 unit 11/09/24 11:30 11/09/24 17:01 Insulin Lispro (Admelog) 1 Unit/0.01 Ml Unit SC 12/09/24 11:29 Not Given ACHS ASHWIN Protocol Magnesium Hydroxide 30 ml 11/09/24 02:03 Milk Of Magnesia Susp 30 Ml Udc PO 12/09/24 02:14 Q72H PRN Constipation Protocol Mirtazapine 45 mg 11/09/24 21:00 Mirtazapine 15 Mg Tablet PO 12/09/24 20:59 HS ASHWIN Ondansetron HCl 4 mg 11/09/24 01:53 Ondansetron Inj 2 Mg/Ml Inj 2 Ml IV 12/09/24 01:52 Q6H PRN NAUSEA OR VOMITING Protocol Paroxetine HCl 20 mg 11/09/24 21:00 Paroxetine Hcl 10 Mg Tablet PO 12/09/24 20:59 HS ASHWIN Polyethylene Glycol 17 gm 11/09/24 09:00 11/09/24 09:44 Polyethylene Glycol 17 Gm Packet PO 12/09/24 08:59 Not Given QDAY ASHWIN Risperidone 3 mg 11/09/24 21:00 Risperidone 1 Mg Tablet PO 12/09/24 20:59 HS [facility] Rivaroxaban 20 mg 11/09/24 21:00 Rivaroxaban 10 Mg Tablet PO 12/09/24 20:59 QPM [facility] Sennosides 1 tab 11/09/24 02:09 Senna Tablet PO 12/09/24 02:08 QDAY PRN CONSTIPATION Protocol Sevelamer Carbonate 800 mg 11/09/24 08:00 11/09/24 17:00 Sevelamer Carbonate 800 Mg Tablet PO 12/09/24 07:59 800 mg TIDWM ASHWIN Administration Tamsulosin HCl 0.4 mg 11/09/24 09:00 11/09/24 09:41 Tamsulosin Hcl 0.4 Mg Capsule PO 12/09/24 08:59 0.4 mg QDAY [facility] Administration Plan Andrew Bella is 64-year-old male with past medical history significant for hypertension, diabetes mellitus type 2, CHF, CAD, COPD, A-fib, seizure disorder, hyperlipidemia, morbid obesity and ARIANA on hemodialysis TTS schedule was brought in by ambulance to ED after developing SOB for 1 day. The patient is admitted to [facility] telemetry unit for further management of acute hypoxic respiratory failure secondary to sepsis secondary to healthcare associated pneumonia. #Sepsis 2/2 hap versus UTI #Healthcare associated pneumonia #Complicated UTI Patient presented with SOB, has been on [facility], and was requiring 5 L oxygen via facemask for proper oxygen saturation. Met 3/4 SIRS criteria with temperature 102.9 and white count of 27.4, tachypnea with source of infection as right-sided pneumonia and UTI. End organ damage evidenced by ARIANA. Did not receive 30 cc/kg of crystalloid fluid bolus because of concern for CHF in ED Lactic acid is downtrending 2.2--1.6 - Continue cefepime 2 g 3 times daily - Continue doxycycline 100 Mg twice daily - Blood and sputum culture pending - Urine culture pending - DuoNeb every 6 hourly scheduled - Daily a.m. labs for CBC, CMP and electrolytes - Oxygen as needed #ARIANA on hemodialysis TTS The patient developed ARIANA on last admission on July 2024 and was started on hemodialysis Currently renal function much improved with creatinine of 1.6 and GFR 48, and he is bringing out urine ARIANA likely in setting of sepsis with hypoperfusion. -nephro recs: considering to stop HD -INOs -oral hydration - Avoid nephrotoxic drugs - Renally dose medications - Daily a.m. labs for CMP and electrolytes #History of insulin-dependent type 2 diabetes, well controlled On admission initial glucose 242. Last A1c 7.1 on 08/10/24 A1c on this admission 6.9 -Held home medications -Bedside blood glucose checks ACHS -Continue 10 units glargine ? 3 units lispro TID -Insulin lispro sliding scale -Carb consistent low diet #Hypomagnesemia Presented with magnesium level of 1.5 - Received 4 g magnesium sulfate - Daily a.m. labs for magnesium, replete as needed #Atrial fibrillation Patient has history of atrial fibrillation - resume diltiazem ER 120 Mg daily - Resume rivaroxaban 20 Mg daily - Daily a.m. labs for electrolytes, maintain potassium greater than 4 and magnesium greater than 2 #NSTEMI, likely type II Presented with troponin of 0.046 Appears that patient's baseline troponin is slightly elevated, may be due to end-stage renal disease #CAD #CHF - On aspirin 81 Mg daily #Depression - mirtazapine 45 Mg daily at night -paroxetine 20 Mg daily #Coagulopathy PT 13.7, APTT 21.1 Secondary to sepsis - Monitor daily a.m. labs for PT and PTT #Acute hypoxic respiratory failure-resolved #Lactic acidosis-resolved Health maintenance: Dispo: med tele, sepsis 2/2 HAP DVT prophylaxis: On rivaroxaban 20 Mg daily Diet: Renal diet Code: Full code The patient's management plan was discussed with my attending physician Dr. Oliveira. Shanae Pandya, PGY-1 Attending Provider Attestation/Addendum I have discussed and was present for the essential components of the history, physical examination, diagnosis, and treatment plan with the resident. I agree with the patient's care as documented by the resident and amended herein by me. Carter Oliveira DO. Although this document has been carefully reviewed, there may still be some phonetic and other typographical errors. These errors are purely grammatical due to imperfections in the software program and should not be construed in any way to compromise the substance of the patient's medical care during this visit.
[2024-11-09] MEDS: INSULIN GLARGINE (Lantus) 5 UNIT/0.05 ML (PER 5 UNITS) 10 UNIT SC (22:03)
[2024-11-09] MEDS: risperiDONE 1 MG TABLET 3 MG PO (22:13)
[2024-11-09] MEDS: RIVAROXABAN 10 MG TABLET 20 MG PO (22:13)
[2024-11-09] MEDS: MIRTAZAPINE 15 MG TABLET 45 MG PO (22:13)
[2024-11-09] MEDS: PARoxetine HCL 10 MG TABLET 20 MG PO (22:14)
[2024-11-10] VITALS (11 sets, daily range): BP systolic 117–138; BP diastolic 71–87; PULSE 68–113; RESP 18–20; TEMP 36.2–36.9; O2SAT 92–100
[2024-11-10 05:59] LABS: Basophils % (Auto) 0 % (0-2.5); Eosinophils # (Auto) 0.2 Thou/mm3 (0.0-0.5); Eosinophils % (Auto) 2 % (0-10); Hematocrit 36.1 % (41.0-53.0); Hemoglobin 11.3 g/dL (13.5-16.0); Immature Granulocytes % (Auto) 0 % (0-0); Immature Granulocytes Auto 0.04 Thou/mm3 (0.00-0.00); Lymphocytes # (Auto) 0.6 Thou/mm3 (1.0-4.8); Lymphocytes % (Auto) 7 % (10-50); Mean Corpuscular HGB Conc 31.3 g/dl (31.0-37.0); Mean Corpuscular Hemoglobin 27.9 pg (25.0-35.0); Mean Corpuscular Volume 89 fL (80-100); Monocytes # (Auto) 0.7 Thou/mm3 (0.0-0.8); Monocytes % (Auto) 7 % (0-12); Neutrophils % (Auto) 83 % (37-80); Nucleated Red Blood Cell % 0 /100 WBC (0); Platelet Count 132 Thou/mm3 (140-440); RDW Standard Deviation 46.5 fL (35.1-43.9); Red Blood Count 4.05 Miln/mm3 (4.50-5.90); White Blood Count 9.6 Thou/mm3 (3.8-10.6)
[2024-11-10] MEDS: CEFEPIME INJ 2 GM in SODIUM CHLORIDE 0.9% (Popper) 50 ML IV ×3 (06:03→23:02)
[2024-11-10 06:16] LABS: INR 1.4 (0.9-1.3); Partial Thromboplastin Time 42.3 Seconds (22.0-36.0); Prothrombin Time 15.3 Seconds (9.0-12.2)
[2024-11-10] MEDS: ALBUTEROL/IPRATROPIUM (Duoneb) RT SOL 3 ML NEBU INH ×3 (06:29→19:02)
[2024-11-10 06:41] LABS: Alanine Aminotransferase 10 U/L (10-49); Albumin, Serum 3.8 gm/dL (3.4-4.8); Albumin/Globulin Ratio 1.2 (1.2-2.2); Alkaline Phosphatase 43 U/L (46-116); Anion Gap 9 (7-16); Aspartate Amino Transferase 24 U/L (0-34); BUN/Creatinine Ratio 24 Ratio (12-20); Bilirubin,Total 1.1 mg/dL (0.3-1.2); Blood Urea Nitrogen 40 mg/dL (9-23); Calcium 8.8 mg/dL (8.3-10.6); Carbon Dioxide 24.8 mMol/L (20.0-31.0); Chloride 101 mMol/L (98-107); Creatinine (Component) 1.7 mg/dL (0.6-1.3); Estimated Creatinine Clearance 68.7 mL/min (>60); Globulin 3.1 gm/dL (2.3-3.5); Glucose 140 mg/dL (74-106); Magnesium 2.2 mg/dL (1.6-2.6); Osmolality,Calculated 281 (275-295); Phosphorous 3.7 mg/dL (2.4-5.1); Potassium 4.7 mMol/L (3.4-5.1); Sodium 135 mMol/L (136-145); Total Protein 6.9 gm/dL (5.7-8.2); eGFR 44 See Note
[2024-11-10] MEDS: INSULIN LISPRO (AdmeLOG) 1 UNIT/0.01 ML UNIT SC ×3 (07:49→21:32)
[2024-11-10] MEDS: INSULIN LISPRO (AdmeLOG) 1 UNIT/0.01 ML UNIT 3 UNIT SC ×4 (07:49→21:31)
[2024-11-10] MEDS: DOXYCYCLINE INJ 100 MG in SODIUM CHLORIDE 0.9% (POP) 100 ML IV ×2 (08:33→21:22)
[2024-11-10] MEDS: DILTIAZEM CD 120 MG CAPCR PO (08:33)
[2024-11-10] MEDS: SEVELAMER CARBONATE 800 MG TABLET PO ×3 (08:33→16:52)
[2024-11-10] MEDS: TAMSULOSIN HCL 0.4 MG CAPSULE PO (08:33)
[2024-11-10] MEDS: ASPIRIN EC 81 MG TABEC PO (08:33)
[2024-11-10] MEDS: POLYETHYLENE GLYCOL 17 GM PACKET PO (09:29)
[2024-11-10] MEDS: ACETAMINOPHEN 325 MG TABLET 650 MG PO (11:12)
--- NOTE | 2024-11-10 12:50 | ESPR_ITS ---
Documentation for date of: 11/10/24 Subjective Subjective Interval history: Mr. Bella is a 64-year-old male with MHx of CKD since July 2024, newly on HD TTS, T2DM, HTN, CHF, CAD, COPD, A-fib, seizure disorder, HLD, morbid obesity, presenting with SOB associated with fever, chills, nausea and vomiting and headaches. Complained of urinary symptoms including urgency and frequency. He was admitted for AHRF in setting of sepsis pneumonia. He has been on HD TTS since July 2024 when he developed an ARIANA during admission. Currently labs are significant for sodium 135, CR 1.6 > 1.9, BUN 35, GFR 48 > 39, GLUCOSE 270, A1c 6.9, TB 1.3, troponin 0.046 > 0.066, BNP 239, cholesterol 127, WBC 29.9, Hgb 12.5, PLT 213. Showing positive leukocyte ESTRACE, RBC 5, WBC 9, protein 1+. CXR suspicious for pneumonia in the right base. EKG showing A-fib with HR 61, no acute ST changes. Currently on ZOSYN and VANCOMYCIN. Nephrology consulted for inpatient hemodialysis. PMH: As mentioned above SHX: S/p spinal stenosis surgery of cervical vertebra, appendectomy Family history: Unremarkable Medications: Aspirin 81 Mg, diltiazem 120 Mg ER, Dulcolax, Fleet enema, milk of magnesium as needed for constipation, lidocaine patch, mirtazapine 45 Mg daily at bedtime, paroxetine 20 Mg daily, PEG 17 g as needed for constipation, Zuly- Cruz, sublaminar, risperidone 3 Mg at night, rivaroxaban 20 Mg daily, senna, tamsulosin 0.4 Mg daily, Tradjenta 5 Mg daily. 11/09/2024 examined at bedside. Feels better today. Denies fever, chills, headaches, chest pain, sob, cough, GI or urinary symptoms. Skin around dialysis catheter showing elevated erythema, however nontender, no purulent discharge. Slightly worsening CR 1.6 > 1.9, likely dehydration. Agree with 500 cc fluids. No urine output recorded. Possibly he may come off HD given improvement of renal function since Jul 2023. No plan for HD today. 11/10/2024 examined at bedside. Denies fever, chills, headaches, chest pain, sob, cough, GI or urinary symptoms. LE scaling improving. Renal function improved, sodium 135, BUN 40, creatinine 1.7, EGFR 44. Likely won't need further HD, will DC cath. Follow-up outpatient in 2 weeks. Exam Vital Signs Temp Pulse Resp BP Pulse Ox O2 Del Method O2 Flow Rate 97.7 F 113 H 18 138/87 H 96 Nasal Cannula 1 11/10/24 08:00 11/10/24 12:43 11/10/24 12:43 11/10/24 08:33 11/10/24 12:43 11/10/24 08:00 11/10/24 12:43 Narrative Exam General: Normal appearing adult male, NAD. HEENT: Moist mucous membranes, oropharynx clear Neck: Supple, No masses, No JVD CVS: Irregularly irregular heart rate, No murmurs, rubs or gallops Lungs: CTAB, no W RR. Abd: Soft, NT/ND, +BS, no organomegaly Ext: No edema, warm and well perfused Skin: No rash Psych: Appropriate mood and affect Objective Labs 11/10/24 12:56 11/10/24 05:26 Labs: Laboratory Results - last 24 hr 11/09/24 11/10/24 14:13 05:26 WBC 9.6 D RBC 4.05 L Hgb 11.3 L Hct 36.1 L MCV 89 MCH 27.9 MCHC 31.3 RDW Std Deviation 46.5 H Plt Count 132 L D Neut % (Auto) 83 H Lymph % (Auto) 7 L [place] % (Auto) 7 Eos % (Auto) 2 Baso % (Auto) 0 Neut # (Auto) 8.0 H Lymph # (Auto) 0.6 L [place] # (Auto) 0.7 Eos # (Auto) 0.2 Baso # (Auto) 0.0 Immature Gran # (Auto) 0.04 H Absolute Nucleated RBC 0.00 Immature Gran % 0 Nucleated RBC % 0 PT 15.3 H INR 1.4 H APTT 42.3 H D Sodium 135 L Potassium 4.7 Chloride 101 Carbon Dioxide 24.8 Anion Gap 9 BUN 40 H Creatinine 1.7 H Estim Creat Clear Calc 68.7 eGFR 44 L BUN/Creatinine Ratio 24 H Glucose 140 H D Calculated Osmolality 281 Calcium 8.8 Corrected Calcium 9.0 Phosphorus 3.7 Magnesium 2.2 Total Bilirubin 1.1 AST 24 ALT 10 Alkaline Phosphatase 43 L Troponin I 0.080 H* Total Protein 6.9 Albumin 3.8 Globulin 3.1 Albumin/Globulin Ratio 1.2 ABG Interpretation ABG results: 11/09/24 04:38 ABG pH 7.35 ABG pCO2 49 H ABG pO2 124 H ABG HCO3 27 H ABG O2 Saturation 99 H ABG Base Excess 1 Quality Measures Quality Measures sepsis Current suspected stage: sepsis Possible source: pulmonary Blood cultures ordered: yes Antibiotic ordered: Yes Assessment & Plan Assessment Current Active Medications: Generic Name Dose Route Start Last Admin Trade Name Freq PRN Reason Stop Dose Admin Acetaminophen 650 mg 11/09/24 01:53 Acetaminophen 325 Mg Tablet PO 12/09/24 01:52 Q6H PRN Fever >100.4 Acetaminophen 650 mg 11/09/24 01:53 11/10/24 11:12 Acetaminophen 325 Mg Tablet PO 12/09/24 01:52 650 mg Q6H PRN Administration PAIN SCALE 1-3 (mild Hydrocodone Bitart/Acetaminophen 1 tab 11/09/24 01:53 Hydrocodone/Apap 5/325 Tablet PO 11/14/24 01:52 Q4HR PRN PAIN SCALE 4-6 (Moderate Albuterol/Ipratropium 3 ml 11/09/24 07:00 11/10/24 12:43 Albuterol/Ipratropium (Duoneb) Rt [place] 3 Ml Nebu INH 12/09/24 06:59 3 ml Q6HRRT ASHWIN Administration Albuterol/Ipratropium 3 ml 11/09/24 14:20 Albuterol/Ipratropium (Duoneb) Rt [place] 3 Ml Nebu INH 12/09/24 18:59 Q6HRRT PRN WHEEZING Aspirin 81 mg 11/09/24 09:00 11/10/24 08:33 Aspirin Ec 81 Mg Tabec PO 12/09/24 08:59 81 mg QDAY ASHWIN Administration Bisacodyl 10 mg 11/09/24 02:03 Bisacodyl 10 Mg Supp [place] 12/09/24 02:14 Q72H PRN constipation Protocol Dextrose 25 ml 11/09/24 01:53 Dextrose 50%-Water Inj 50 Ml Syringe IV 12/09/24 01:52 Q15MIN PRN BG 50-70 responsive npo pt Dextrose 50 ml 11/09/24 10:46 Dextrose 50%-Water Inj 50 Ml Syringe IV 12/09/24 10:45 Q15MIN PRN BG <50 OR BG <70 & pt unresponsive Diltiazem HCl 120 mg 11/09/24 09:00 11/10/24 08:33 Diltiazem Cd 120 Mg Capcr PO 12/09/24 08:59 120 mg QDAY ASHWIN Administration Glucagon 1 mg 11/09/24 10:46 Glucagon Inj 1 Mg Vial IM Q15MIN PRN BG <70, and no IV access Doxycycline Hyclate 100 mg/ 100 mls @ 100 mls/hr 11/09/24 09:00 11/10/24 08:33 Sodium Chloride IV 11/16/24 08:59 100 mls/hr BID ASHWIN Administration Cefepime HCl 2 gm/ Sodium 50 mls @ 100 mls/hr 11/09/24 06:00 11/10/24 06:03 Chloride IV 11/16/24 05:59 100 mls/hr Q8HR ASHWIN Administration Insulin Glargine 10 unit 11/09/24 21:00 11/09/24 22:03 Insulin Glargine (Lantus) 5 Unit/0.05 Ml (Per 5 Units) SC 12/09/24 20:59 10 unit HS ASHWIN Administration Insulin Human Lispro 3 unit 11/09/24 11:30 11/10/24 11:17 Insulin Lispro (Admelog) 1 Unit/0.01 Ml Unit SC 12/09/24 11:29 3 unit ACHS ASHWIN Administration Insulin Human Lispro 0 unit 11/09/24 11:30 11/10/24 11:17 Insulin Lispro (Admelog) 1 Unit/0.01 Ml Unit SC 12/09/24 11:29 1 unit ACHS ASHWIN Administration Protocol Magnesium Hydroxide 30 ml 11/09/24 02:03 Milk Of Magnesia Susp 30 Ml Udc PO 12/09/24 02:14 Q72H PRN Constipation Protocol Mirtazapine 45 mg 11/09/24 21:00 11/09/24 22:13 Mirtazapine 15 Mg Tablet PO 12/09/24 20:59 45 mg HS ASHWIN Administration Ondansetron HCl 4 mg 11/09/24 01:53 Ondansetron Inj 2 Mg/Ml Inj 2 Ml IV 12/09/24 01:52 Q6H PRN NAUSEA OR VOMITING Protocol Paroxetine HCl 20 mg 11/09/24 21:00 11/09/24 22:14 Paroxetine Hcl 10 Mg Tablet PO 12/09/24 20:59 20 mg HS ASHWIN Administration Polyethylene Glycol 17 gm 11/09/24 09:00 11/10/24 09:29 Polyethylene Glycol 17 Gm Packet PO 12/09/24 08:59 17 gm QDAY ASHWIN Administration Risperidone 3 mg 11/09/24 21:00 11/09/24 22:13 Risperidone 1 Mg Tablet PO 12/09/24 20:59 3 mg HS ASHWNI Administration Rivaroxaban 20 mg 11/09/24 21:00 11/09/24 22:13 Rivaroxaban 10 Mg Tablet PO 12/09/24 20:59 20 mg QPM ASHWIN Administration Sennosides 1 tab 11/09/24 02:09 Senna Tablet PO 12/09/24 02:08 QDAY PRN CONSTIPATION Protocol Sevelamer Carbonate 800 mg 11/09/24 08:00 11/10/24 11:12 Sevelamer Carbonate 800 Mg Tablet PO 12/09/24 07:59 800 mg TIDWM ASHWIN Administration Tamsulosin HCl 0.4 mg 11/09/24 09:00 11/10/24 08:33 Tamsulosin Hcl 0.4 Mg Capsule PO 12/09/24 08:59 0.4 mg QDAY ASHWIN Administration Plan 40-year-old male with MHx of CKD since July 2024, newly on HD TTS, T2DM, HTN, CHF, CAD, COPD, A-fib, seizure disorder, HLD, morbid obesity, presenting with SOB associated with fever, chills, nausea and vomiting and headaches. Complained of urinary symptoms including urgency and frequency. He was admitted for AHRF in setting of sepsis pneumonia. Renal function recovered and stable, will discontinue future HD, DC catheter. Follow-up in office in 2 weeks. ARIANA on ?CKD stage 3B He has been on HD TTS with Dr. Dahl since Jul 2023 following ARIANA. At the time, CR 6.5, EGFR 11. Renal function likely showing improvement with CR 1.6 > 1.9 and EGFR 39. Likely ARIANA in settings of dehydration and/or UTI There is a chance he maybe taken of HD given improvement in renal function Will monitor urine output and renal function. Renal function improving. CR 1.7, EGFR 44. Urine output good. ? DC dialysis catheter ? Renally dose meds, avoid overdiuresis and NEPHROTOXINS ? Daily CMP Acute hypoxic respiratory failure 2/2 Sepsis 2/2 Healthcare associated pneumonia Lactic acidosis Complicated UTI Diabetes mellitus type 2 Hypomagnesemia Atrial fibrillation NSTEMI, likely type II CAD CHF Depression Coagulopathy ? Managed by primary team Thank you for the opportunity to participate in the patient's care. Case was discussed with attending, Dr. Bermeo. Robina Galvan DO PGYI Attending Provider Attestation/Addendum Patient seen and examined with resident physician Dr. Quarles. Note reviewed, agree with findings and recommendations. Patient had been receiving dialysis for the last 3 months for cardiorenal syndrome. Started to make urine. Clinically euvolemic. Creatinine markedly improved to 1.9. Hold dialysis. Admitted with low blood pressure-suspect catheter related bacteremia. Pending cultures can DC dialysis and DC dialysis catheter tomorrow. On broad-spectrum antibiotics. 11/10 patient started to make a good urine. Creatinine 1.7. Will DC dialysis and catheter today. Thank you Carter for allowing me to participate in the care of Mr. Bella
[2024-11-10 13:23] LABS: Basophils % (Auto) 0 % (0-2.5); Eosinophils # (Auto) 0.2 Thou/mm3 (0.0-0.5); Eosinophils % (Auto) 2 % (0-10); Hematocrit 34.5 % (41.0-53.0); Hemoglobin 10.9 g/dL (13.5-16.0); Immature Granulocytes % (Auto) 0 % (0-0); Immature Granulocytes Auto 0.03 Thou/mm3 (0.00-0.00); Lymphocytes # (Auto) 0.6 Thou/mm3 (1.0-4.8); Lymphocytes % (Auto) 6 % (10-50); Mean Corpuscular HGB Conc 31.6 g/dl (31.0-37.0); Mean Corpuscular Hemoglobin 27.6 pg (25.0-35.0); Mean Corpuscular Volume 87 fL (80-100); Monocytes # (Auto) 0.7 Thou/mm3 (0.0-0.8); Monocytes % (Auto) 8 % (0-12); Neutrophils # (Auto) 7.7 Thou/mm3 (1.8-7.7); Neutrophils % (Auto) 83 % (37-80); Nucleated Red Blood Cell % 0 /100 WBC (0); Platelet Count 151 Thou/mm3 (140-440); RDW Standard Deviation 46.6 fL (35.1-43.9); Red Blood Count 3.95 Miln/mm3 (4.50-5.90); White Blood Count 9.2 Thou/mm3 (3.8-10.6)
--- NOTE | 2024-11-10 13:50 | ESPR_ITS ---
Documentation for date of: 11/10/24 Subjective Subjective Interval history: Patient examined at bedside. No major events overnight. Has no major complaints. Telemetry reviewed and patient remains in A-fib with rate 90-1 10. Leukocytosis improving 9.6, platelets downtrended 132. ARIANA improving with creatinine 1.7. Heparin stopped due to drop in platelets. Will continue to monitor. Per nephrology, patient no longer will require dialysis--holding Xarelto for two days to remove temp cath. Exam Vital Signs Temp Pulse Resp BP Pulse Ox O2 Del Method O2 Flow Rate 97.7 F 104 H 18 138/87 H 99 Nasal Cannula 1 11/10/24 08:00 11/10/24 12:43 11/10/24 12:43 11/10/24 08:33 11/10/24 12:43 11/10/24 08:00 11/10/24 12:43 Narrative Exam General: Elderly male, obese, no acute distress, cooperative HEENT: NCAT, No JVD noted. Mucosa moist. Pupils are equal and reactive to light bilaterally Cardiovascular: Normal S1 and S2. Regular rate and rhythm. Respiratory: Lungs are clear to auscultation bilaterally. No wheezing or crackles heard. Abdomen: Soft, nontender, not distended, normal bowel sounds. Skin: Warm to touch, dry, lower extremity venous stasis discoloration Musculoskeletal: No gross injuries. Able to move all 4 extremities. No pitting edema Neuro: Alert and oriented x3. No focal neuro deficits. Psych: Normal affect and mood Objective Labs 11/10/24 12:56 11/10/24 05:26 Labs: Laboratory Results - last 24 hr 11/09/24 11/10/24 11/10/24 14:13 05:26 12:56 WBC 9.6 D 9.2 RBC 4.05 L 3.95 L Hgb 11.3 L 10.9 L Hct 36.1 L 34.5 L MCV 89 87 MCH 27.9 27.6 MCHC 31.3 31.6 RDW Std Deviation 46.5 H 46.6 H Plt Count 132 L D 151 Neut % (Auto) 83 H 83 H Lymph % (Auto) 7 L 6 L [place] % (Auto) 7 8 Eos % (Auto) 2 2 Baso % (Auto) 0 0 Neut # (Auto) 8.0 H 7.7 Lymph # (Auto) 0.6 L 0.6 L [place] # (Auto) 0.7 0.7 Eos # (Auto) 0.2 0.2 Baso # (Auto) 0.0 0.0 Immature Gran # (Auto) 0.04 H 0.03 H Absolute Nucleated RBC 0.00 0.00 Immature Gran % 0 0 Nucleated RBC % 0 0 PT 15.3 H INR 1.4 H APTT 42.3 H D Sodium 135 L Potassium 4.7 Chloride 101 Carbon Dioxide 24.8 Anion Gap 9 BUN 40 H Creatinine 1.7 H Estim Creat Clear Calc 68.7 eGFR 44 L BUN/Creatinine Ratio 24 H Glucose 140 H D Calculated Osmolality 281 Calcium 8.8 Corrected Calcium 9.0 Phosphorus 3.7 Magnesium 2.2 Total Bilirubin 1.1 AST 24 ALT 10 Alkaline Phosphatase 43 L Troponin I 0.080 H* Total Protein 6.9 Albumin 3.8 Globulin 3.1 Albumin/Globulin Ratio 1.2 ABG Interpretation ABG results: 11/09/24 04:38 ABG pH 7.35 ABG pCO2 49 H ABG pO2 124 H ABG HCO3 27 H ABG O2 Saturation 99 H ABG Base Excess 1 Quality Measures Quality Measures sepsis Current suspected stage: ruled out Possible source: pulmonary Blood cultures ordered: yes Antibiotic ordered: Yes Assessment & Plan Assessment Current Active Medications: Generic Name Dose Route Start Last Admin Trade Name Freq PRN Reason Stop Dose Admin Acetaminophen 650 mg 11/09/24 01:53 Acetaminophen 325 Mg Tablet PO 12/09/24 01:52 Q6H PRN Fever >100.4 Acetaminophen 650 mg 11/09/24 01:53 11/10/24 11:12 Acetaminophen 325 Mg Tablet PO 12/09/24 01:52 650 mg Q6H PRN Administration PAIN SCALE 1-3 (mild Hydrocodone Bitart/Acetaminophen 1 tab 11/09/24 01:53 Hydrocodone/Apap 5/325 Tablet PO 11/14/24 01:52 Q4HR PRN PAIN SCALE 4-6 (Moderate Albuterol/Ipratropium 3 ml 11/09/24 07:00 11/10/24 12:43 Albuterol/Ipratropium (Duoneb) Rt [place] 3 Ml Nebu INH 12/09/24 06:59 3 ml Q6HRRT ASHWIN Administration Albuterol/Ipratropium 3 ml 11/09/24 14:20 Albuterol/Ipratropium (Duoneb) Rt [place] 3 Ml Nebu INH 12/09/24 18:59 Q6HRRT PRN WHEEZING Aspirin 81 mg 11/09/24 09:00 11/10/24 08:33 Aspirin Ec 81 Mg Tabec PO 12/09/24 08:59 81 mg QDAY ASHWIN Administration Bisacodyl 10 mg 11/09/24 02:03 Bisacodyl 10 Mg Supp [place] 12/09/24 02:14 Q72H PRN constipation Protocol Dextrose 25 ml 11/09/24 01:53 Dextrose 50%-Water Inj 50 Ml Syringe IV 12/09/24 01:52 Q15MIN PRN BG 50-70 responsive npo pt Dextrose 50 ml 11/09/24 10:46 Dextrose 50%-Water Inj 50 Ml Syringe IV 12/09/24 10:45 Q15MIN PRN BG <50 OR BG <70 & pt unresponsive Diltiazem HCl 120 mg 11/09/24 09:00 11/10/24 08:33 Diltiazem Cd 120 Mg Capcr PO 12/09/24 08:59 120 mg QDAY ASHWIN Administration Glucagon 1 mg 11/09/24 10:46 Glucagon Inj 1 Mg Vial IM Q15MIN PRN BG <70, and no IV access Doxycycline Hyclate 100 mg/ 100 mls @ 100 mls/hr 11/09/24 09:00 11/10/24 08:33 Sodium Chloride IV 11/16/24 08:59 100 mls/hr BID ASHWIN Administration Cefepime HCl 2 gm/ Sodium 50 mls @ 100 mls/hr 11/09/24 06:00 11/10/24 13:00 Chloride IV 11/16/24 05:59 100 mls/hr Q8HR ASHWIN Administration Insulin Glargine 10 unit 11/09/24 21:00 11/09/24 22:03 Insulin Glargine (Lantus) 5 Unit/0.05 Ml (Per 5 Units) SC 12/09/24 20:59 10 unit HS ASHWIN Administration Insulin Human Lispro 3 unit 11/09/24 11:30 11/10/24 11:17 Insulin Lispro (Admelog) 1 Unit/0.01 Ml Unit SC 12/09/24 11:29 3 unit ACHS ASHWIN Administration Insulin Human Lispro 0 unit 11/09/24 11:30 11/10/24 11:17 Insulin Lispro (Admelog) 1 Unit/0.01 Ml Unit SC 12/09/24 11:29 1 unit ACHS ASHWIN Administration Protocol Magnesium Hydroxide 30 ml 11/09/24 02:03 Milk Of Magnesia Susp 30 Ml Udc PO 12/09/24 02:14 Q72H PRN Constipation Protocol Mirtazapine 45 mg 11/09/24 21:00 11/09/24 22:13 Mirtazapine 15 Mg Tablet PO 12/09/24 20:59 45 mg HS ASHWIN Administration Ondansetron HCl 4 mg 11/09/24 01:53 Ondansetron Inj 2 Mg/Ml Inj 2 Ml IV 12/09/24 01:52 Q6H PRN NAUSEA OR VOMITING Protocol Paroxetine HCl 20 mg 11/09/24 21:00 11/09/24 22:14 Paroxetine Hcl 10 Mg Tablet PO 12/09/24 20:59 20 mg HS ASHWIN Administration Polyethylene Glycol 17 gm 11/09/24 09:00 11/10/24 09:29 Polyethylene Glycol 17 Gm Packet PO 12/09/24 08:59 17 gm QDAY ASHWIN Administration Risperidone 3 mg 11/09/24 21:00 11/09/24 22:13 Risperidone 1 Mg Tablet PO 12/09/24 20:59 3 mg HS ASHWIN Administration Rivaroxaban 20 mg 11/09/24 21:00 11/09/24 22:13 Rivaroxaban 10 Mg Tablet PO 12/09/24 20:59 20 mg QPM ASHWIN Administration Sennosides 1 tab 11/09/24 02:09 Senna Tablet PO 12/09/24 02:08 QDAY PRN CONSTIPATION Protocol Sevelamer Carbonate 800 mg 11/09/24 08:00 11/10/24 11:12 Sevelamer Carbonate 800 Mg Tablet PO 12/09/24 07:59 800 mg TIDWM ASHWIN Administration Tamsulosin HCl 0.4 mg 11/09/24 09:00 11/10/24 08:33 Tamsulosin Hcl 0.4 Mg Capsule PO 12/09/24 08:59 0.4 mg QDAY ASHWIN Administration Plan Andrew Bella is 64-year-old male with past medical history significant for hypertension, diabetes mellitus type 2, CHF, CAD, COPD, A-fib, seizure disorder, hyperlipidemia, morbid obesity and AIRANA on hemodialysis TTS schedule was brought in by ambulance to ED after developing SOB for 1 day. The patient is admitted to [facility] telemetry unit for further management of acute hypoxic respiratory failure secondary to sepsis secondary to healthcare associated pneumonia. #Sepsis 2/2 hap versus UTI #Healthcare associated pneumonia #Complicated UTI Patient presented with SOB, has been on [place] [facility], and was requiring 5 L oxygen via facemask for proper oxygen saturation. Met 3/4 SIRS criteria with temperature 102.9 and white count of 27.4, tachypnea with source of infection as right-sided pneumonia and UTI. End organ damage evidenced by ARIANA. Did not receive 30 cc/kg of crystalloid fluid bolus because of concern for CHF in ED Lactic acid is downtrending 2.2--1.6 - Continue cefepime 2 g 3 times daily - Continue doxycycline 100 Mg twice daily - repeat BC pending, possible contaminant - Urine culture negative - DuoNeb every 6 hourly scheduled - Daily a.m. labs for CBC, CMP and electrolytes - Oxygen as needed #ARIANA on hemodialysis TTS The patient developed ARIANA on last admission on July 2024 and was started on hemodialysis Currently renal function much improved with creatinine of 1.6 and GFR 48, and he is bringing out urine ARIANA likely in setting of sepsis with hypoperfusion. -nephro recs: stop HD, remove TDC, follow up in 2 weeks -INOs -oral hydration - Avoid nephrotoxic drugs - Renally dose medications - Daily a.m. labs for CMP and electrolytes #History of insulin-dependent type 2 diabetes, well controlled On admission initial glucose 242. Last A1c 7.1 on 08/10/24 A1c on this admission 6.9 -Held home medications -Bedside blood glucose checks ACHS -Continue 10 units glargine ? 3 units lispro TID -Insulin lispro sliding scale -Carb consistent low diet #Hypomagnesemia Presented with magnesium level of 1.5 - Received 4 g magnesium sulfate - Daily a.m. labs for magnesium, replete as needed #Atrial fibrillation Patient has history of atrial fibrillation - resume diltiazem ER 120 Mg daily - hold rivaroxaban 20 Mg daily until TDC removed - Daily a.m. labs for electrolytes, maintain potassium greater than 4 and magnesium greater than 2 #NSTEMI, likely type II Presented with troponin of 0.046 Appears that patient's baseline troponin is slightly elevated, may be due to end-stage renal disease -delta acheived #CAD #CHF - On aspirin 81 Mg daily #Depression - mirtazapine 45 Mg daily at night -paroxetine 20 Mg daily #Coagulopathy PT 13.7, APTT 21.1 Secondary to sepsis -platelets downtrending: stop heparin and repeat CBC - Monitor daily a.m. labs for PT and PTT #Acute hypoxic respiratory failure-resolved #Lactic acidosis-resolved Health maintenance: Dispo: med tele, sepsis 2/2 HAP DVT prophylaxis: On rivaroxaban 20 Mg daily Diet: Renal diet Code: Full code The patient's management plan was discussed with my attending physician Dr. Oliveira. Shanae Pandya, PGY-1 Attending Provider Attestation/Addendum I have discussed and was present for the essential components of the history, physical examination, diagnosis, and treatment plan with the resident. I agree with the patient's care as documented by the resident and amended herein by me. Carter Oliveira, DO. Patient seen and evaluated this AM. Vital signs stable, patient afebrile overnight, atrial fibrillation demonstrated on monitor however rate controlled. WBC 9.6, hemoglobin stable 11.3, platelets downtrending from 132 today from slightly over 200, may be lab error, will repeat labs. Creatinine downtrending 1.7 today. Patient presently on Xarelto, cefepime, vancomycin and aspirin for sepsis secondary to hap and UTI. Per nephrology, temporary dialysis catheter can be removed however patient will need to be off Xarelto per IR for 3 to 5 days prior to removal. I may just remove this myself tomorrow or Friday. Will continue to monitor closely, appreciate specialist recommendations. Although this document has been carefully reviewed, there may still be some phonetic and other typographical errors. These errors are purely grammatical due to imperfections in the software program and should not be construed in any way to compromise the substance of the patient's medical care during this visit.
[2024-11-10 13:51] LABS: Troponin I 0.049 ng/mL (0.0-0.045)
--- NOTE | 2024-11-10 13:54 | PC.SS ---
Andrew Bella is a 64 year-old male admitted to CT for Sepsis. ?SS conducted bedside contact with the patient to complete initial assessment and to discuss discharge planning.? Patient confirmed demographic information. Patient identifies his friend Wyatt Wallace [phone] as his surrogate decision maker. [facility] resides at [facility] since Aug 21 2024, pt will return upon DC> Pt reports working with PT, being able to walk with a walker, and transfer into a wheel chair. Pts PCP is Dr. Yousif. Pt will need transportation upon DC. No further intervention required at this time, social work administrator would be available to address any further concerns. DC Plan: [facility] Contact: Friend, Wyatt ?
--- NOTE | 2024-11-10 15:20 | PC.SS ---
Rounding: Pending repeat cultures, needs one more day of monitoring. Will DC back to [facility] when DC ready.
[2024-11-10] MEDS: risperiDONE 1 MG TABLET 3 MG PO (21:27)
[2024-11-10] MEDS: MIRTAZAPINE 15 MG TABLET 45 MG PO (21:28)
[2024-11-10] MEDS: PARoxetine HCL 10 MG TABLET 20 MG PO (21:29)
[2024-11-10] MEDS: MUPIROCIN OINT 2% 15 GM TUBE TOP (21:29)
[2024-11-10] MEDS: INSULIN GLARGINE (Lantus) 5 UNIT/0.05 ML (PER 5 UNITS) 10 UNIT SC (21:32)
[2024-11-11] VITALS (13 sets, daily range): BP systolic 123–140; BP diastolic 67–86; PULSE 79–126; RESP 15–29; TEMP 36–36.6; O2SAT 92–100; BMI 42.8
[2024-11-11 06:09] LABS: Basophils % (Auto) 0 % (0-2.5); Eosinophils # (Auto) 0.3 Thou/mm3 (0.0-0.5); Eosinophils % (Auto) 4 % (0-10); Hematocrit 33.5 % (41.0-53.0); Hemoglobin 10.5 g/dL (13.5-16.0); Immature Granulocytes % (Auto) 0 % (0-0); Immature Granulocytes Auto 0.03 Thou/mm3 (0.00-0.00); Lymphocytes # (Auto) 0.9 Thou/mm3 (1.0-4.8); Lymphocytes % (Auto) 12 % (10-50); Mean Corpuscular HGB Conc 31.3 g/dl (31.0-37.0); Mean Corpuscular Hemoglobin 27.9 pg (25.0-35.0); Mean Corpuscular Volume 89 fL (80-100); Monocytes # (Auto) 0.7 Thou/mm3 (0.0-0.8); Monocytes % (Auto) 10 % (0-12); Neutrophils # (Auto) 5.6 Thou/mm3 (1.8-7.7); Neutrophils % (Auto) 74 % (37-80); Nucleated Red Blood Cell % 0 /100 WBC (0); Platelet Count 112 Thou/mm3 (140-440); RDW Standard Deviation 46.3 fL (35.1-43.9); Red Blood Count 3.77 Miln/mm3 (4.50-5.90); White Blood Count 7.5 Thou/mm3 (3.8-10.6)
[2024-11-11] MEDS: CEFEPIME INJ 2 GM in SODIUM CHLORIDE 0.9% (Popper) 50 ML IV ×3 (06:29→21:02)
[2024-11-11] MEDS: MUPIROCIN OINT 2% 15 GM TUBE TOP ×3 (06:29→21:02)
[2024-11-11] MEDS: ALBUTEROL/IPRATROPIUM (Duoneb) RT SOL 3 ML NEBU INH ×3 (06:51→19:15)
[2024-11-11 06:54] LABS: Alanine Aminotransferase 9 U/L (10-49); Albumin, Serum 3.6 gm/dL (3.4-4.8); Albumin/Globulin Ratio 1.2 (1.2-2.2); Alkaline Phosphatase 44 U/L (46-116); Anion Gap 7 (7-16); Aspartate Amino Transferase 15 U/L (0-34); BUN/Creatinine Ratio 29 Ratio (12-20); Bilirubin,Total 0.9 mg/dL (0.3-1.2); Blood Urea Nitrogen 35 mg/dL (9-23); Calcium 8.9 mg/dL (8.3-10.6); Calcium (Corrected) 9.2 mg/dL (8.5-10.1); Carbon Dioxide 26.1 mMol/L (20.0-31.0); Chloride 106 mMol/L (98-107); Creatinine (Component) 1.2 mg/dL (0.6-1.3); Glucose 156 mg/dL (74-106); Magnesium 2.2 mg/dL (1.6-2.6); Osmolality,Calculated 288 (275-295); Phosphorous 3.6 mg/dL (2.4-5.1); Potassium 4.3 mMol/L (3.4-5.1); Sodium 139 mMol/L (136-145); Total Protein 6.6 gm/dL (5.7-8.2); eGFR > 60 See Note
[2024-11-11 07:49] LABS: Estimated Creatinine Clearance 96.7 mL/min (>60)
[2024-11-11] MEDS: INSULIN LISPRO (AdmeLOG) 1 UNIT/0.01 ML UNIT 3 UNIT SC ×3 (08:06→20:41)
[2024-11-11] MEDS: INSULIN LISPRO (AdmeLOG) 1 UNIT/0.01 ML UNIT SC ×2 (08:06→20:42)
[2024-11-11] MEDS: Vancomycin Inj 2,000 MG in SODIUM CHLORIDE 0.9% 500 ML 500 ML 150 MG IV (08:09)
[2024-11-11] MEDS: ASPIRIN EC 81 MG TABEC PO (08:14)
[2024-11-11] MEDS: TAMSULOSIN HCL 0.4 MG CAPSULE PO (08:14)
[2024-11-11] MEDS: DILTIAZEM CD 120 MG CAPCR PO (08:14)
[2024-11-11] MEDS: POLYETHYLENE GLYCOL 17 GM PACKET PO (08:14)
[2024-11-11] MEDS: SEVELAMER CARBONATE 800 MG TABLET PO ×3 (08:14→17:07)
[2024-11-11] MEDS: DOXYCYCLINE INJ 100 MG in SODIUM CHLORIDE 0.9% (POP) 100 ML IV (09:02)
[2024-11-11] MEDS: Furosemide 20 MG TABLET PO (09:02)
--- NOTE | 2024-11-11 10:32 | ESPR_ITS ---
Documentation for date of: 11/11/24 Subjective Subjective Interval history: Mr. Bella is a 64-year-old male with MHx of CKD since July 2024, newly on HD TTS, T2DM, HTN, CHF, CAD, COPD, A-fib, seizure disorder, HLD, morbid obesity, presenting with SOB associated with fever, chills, nausea and vomiting and headaches. Complained of urinary symptoms including urgency and frequency. He was admitted for AHRF in setting of sepsis pneumonia. He has been on HD TTS since July 2024 when he developed an ARIANA during admission. Currently labs are significant for sodium 135, CR 1.6 > 1.9, BUN 35, GFR 48 > 39, GLUCOSE 270, A1c 6.9, TB 1.3, troponin 0.046 > 0.066, BNP 239, cholesterol 127, WBC 29.9, Hgb 12.5, PLT 213. Showing positive leukocyte ESTRACE, RBC 5, WBC 9, protein 1+. CXR suspicious for pneumonia in the right base. EKG showing A-fib with HR 61, no acute ST changes. Currently on ZOSYN and VANCOMYCIN. Nephrology consulted for inpatient hemodialysis. PMH: As mentioned above SHX: S/p spinal stenosis surgery of cervical vertebra, appendectomy Family history: Unremarkable Medications: Aspirin 81 Mg, diltiazem 120 Mg ER, Dulcolax, Fleet enema, milk of magnesium as needed for constipation, lidocaine patch, mirtazapine 45 Mg daily at bedtime, paroxetine 20 Mg daily, PEG 17 g as needed for constipation, Zuly- Cruz, sublaminar, risperidone 3 Mg at night, rivaroxaban 20 Mg daily, senna, tamsulosin 0.4 Mg daily, Tradjenta 5 Mg daily. 11/09/2024 examined at bedside. Feels better today. Denies fever, chills, headaches, chest pain, sob, cough, GI or urinary symptoms. Skin around dialysis catheter showing elevated erythema, however nontender, no purulent discharge. Slightly worsening CR 1.6 > 1.9, likely dehydration. Agree with 500 cc fluids. No urine output recorded. Possibly he may come off HD given improvement of renal function since Jul 2023. No plan for HD today. 11/10/2024 examined at bedside. Denies fever, chills, headaches, chest pain, sob, cough, GI or urinary symptoms. LE scaling improving. Renal function improved, sodium 135, BUN 40, creatinine 1.7, EGFR 44. Likely won't need further HD, will DC cath. Follow-up outpatient in 2 weeks. 11/11/2024 examined at bedside. No new symptoms or worsening of symptoms. Denies fever, chills, headaches, chest pain, sob, cough, GI or urinary symptoms. GPC bacteremia, on DOXY and VANC. Dialysis cath removal postponed since he is on XARELTO (on HOLD). Renal function stable, CR 1.2, BUN 35, GFR greater than 60. Had 1+ LE edema bilaterally, with LASIX 20 daily. Exam Vital Signs Temp Pulse Resp BP Pulse Ox O2 Del Method O2 Flow Rate 98 F 88 19 123/80 100 Nasal Cannula 1 11/11/24 01:28 11/11/24 09:02 11/11/24 06:52 11/11/24 09:02 11/11/24 06:52 11/11/24 04:00 11/11/24 06:52 Narrative Exam General: Normal appearing adult male, NAD. HEENT: Moist mucous membranes, oropharynx clear Neck: Supple, No masses, No JVD CVS: Irregularly irregular heart rate, No murmurs, rubs or gallops Lungs: CTAB, no W RR. Abd: Soft, NT/ND, +BS, no organomegaly Ext: 1+ bilateral lower extremity edema, warm and well perfused Skin: No rash Psych: Appropriate mood and affect Objective Labs 11/12/24 05:03 11/12/24 05:03 Labs: Laboratory Results - last 24 hr 11/10/24 11/11/24 12:56 05:36 WBC 9.2 7.5 RBC 3.95 L 3.77 L Hgb 10.9 L 10.5 L Hct 34.5 L 33.5 L MCV 87 89 MCH 27.6 27.9 MCHC 31.6 31.3 RDW Std Deviation 46.6 H 46.3 H Plt Count 151 112 L D Neut % (Auto) 83 H 74 Lymph % (Auto) 6 L 12 [place] % (Auto) 8 10 Eos % (Auto) 2 4 Baso % (Auto) 0 0 Neut # (Auto) 7.7 5.6 Lymph # (Auto) 0.6 L 0.9 L [place] # (Auto) 0.7 0.7 Eos # (Auto) 0.2 0.3 Baso # (Auto) 0.0 0.0 Immature Gran # (Auto) 0.03 H 0.03 H Absolute Nucleated RBC 0.00 0.00 Immature Gran % 0 0 Nucleated RBC % 0 0 Sodium 139 Potassium 4.3 Chloride 106 Carbon Dioxide 26.1 Anion Gap 7 BUN 35 H Creatinine 1.2 D Estim Creat Clear Calc 96.7 eGFR > 60 BUN/Creatinine Ratio 29 H Glucose 156 H Calculated Osmolality 288 Calcium 8.9 Corrected Calcium 9.2 Phosphorus 3.6 Magnesium 2.2 Total Bilirubin 0.9 AST 15 ALT 9 L Alkaline Phosphatase 44 L Troponin I 0.049 H* Total Protein 6.6 Albumin 3.6 Globulin 3.0 Albumin/Globulin Ratio 1.2 ABG Interpretation ABG results: 11/09/24 04:38 ABG pH 7.35 ABG pCO2 49 H ABG pO2 124 H ABG HCO3 27 H ABG O2 Saturation 99 H ABG Base Excess 1 Quality Measures Quality Measures sepsis Current suspected stage: sepsis Possible source: pulmonary Blood cultures ordered: yes Antibiotic ordered: Yes Assessment & Plan Assessment Current Active Medications: Generic Name Dose Route Start Last Admin Trade Name Freq PRN Reason Stop Dose Admin Acetaminophen 650 mg 11/09/24 01:53 Acetaminophen 325 Mg Tablet PO 12/09/24 01:52 Q6H PRN Fever >100.4 Acetaminophen 650 mg 11/09/24 01:53 11/10/24 11:12 Acetaminophen 325 Mg Tablet PO 12/09/24 01:52 650 mg Q6H PRN Administration PAIN SCALE 1-3 (mild Hydrocodone Bitart/Acetaminophen 1 tab 11/09/24 01:53 Hydrocodone/Apap 5/325 Tablet PO 11/14/24 01:52 Q4HR PRN PAIN SCALE 4-6 (Moderate Albuterol/Ipratropium 3 ml 11/09/24 07:00 11/11/24 06:51 Albuterol/Ipratropium (Duoneb) Rt [place] 3 Ml Nebu INH 12/09/24 06:59 3 ml Q6HRRT ASHWIN Administration Albuterol/Ipratropium 3 ml 11/09/24 14:20 Albuterol/Ipratropium (Duoneb) Rt [place] 3 Ml Nebu INH 12/09/24 18:59 Q6HRRT PRN WHEEZING Aspirin 81 mg 11/09/24 09:00 11/11/24 08:14 Aspirin Ec 81 Mg Tabec PO 12/09/24 08:59 81 mg QDAY ASHWIN Administration Bisacodyl 10 mg 11/09/24 02:[address] 12/09/24 02:14 Q72H PRN constipation Protocol Dextrose 25 ml 11/09/24 01:53 Dextrose 50%-Water Inj 50 Ml Syringe IV 12/09/24 01:52 Q15MIN PRN BG 50-70 responsive npo pt Dextrose 50 ml 11/09/24 10:46 Dextrose 50%-Water Inj 50 Ml Syringe IV 12/09/24 10:45 Q15MIN PRN BG <50 OR BG <70 & pt unresponsive Diltiazem HCl 120 mg 11/09/24 09:00 11/11/24 08:14 Diltiazem Cd 120 Mg Capcr PO 12/09/24 08:59 120 mg QDAY ASHWIN Administration Furosemide 20 mg 11/11/24 09:00 11/11/24 09:02 Furosemide 20 Mg Tablet PO 12/11/24 08:59 20 mg QAM ASHWIN Administration Glucagon 1 mg 11/09/24 10:46 Glucagon Inj 1 Mg Vial IM Q15MIN PRN BG <70, and no IV access Doxycycline Hyclate 100 mg/ 100 mls @ 100 mls/hr 11/09/24 09:00 11/11/24 09:02 Sodium Chloride IV 11/16/24 08:59 100 mls/hr BID ASHWIN Administration Cefepime HCl 2 gm/ Sodium 50 mls @ 100 mls/hr 11/09/24 06:00 11/11/24 06:29 Chloride IV 11/16/24 05:59 100 mls/hr Q8HR ASHWIN Administration Insulin Glargine 10 unit 11/09/24 21:00 11/10/24 21:32 Insulin Glargine (Lantus) 5 Unit/0.05 Ml (Per 5 Units) SC 12/09/24 20:59 10 unit HS ASHWIN Administration Insulin Human Lispro 3 unit 11/09/24 11:30 11/11/24 08:06 Insulin Lispro (Admelog) 1 Unit/0.01 Ml Unit SC 12/09/24 11:29 3 unit ACHS ASHWIN Administration Insulin Human Lispro 0 unit 11/09/24 11:30 11/11/24 08:06 Insulin Lispro (Admelog) 1 Unit/0.01 Ml Unit SC 12/09/24 11:29 1 unit ACHS ASHWIN Administration Protocol Magnesium Hydroxide 30 ml 11/09/24 02:03 Milk Of Magnesia Susp 30 Ml Udc PO 12/09/24 02:14 Q72H PRN Constipation Protocol Mirtazapine 45 mg 11/09/24 21:00 11/10/24 21:28 Mirtazapine 15 Mg Tablet PO 12/09/24 20:59 45 mg HS ASHWIN Administration Mupirocin 0 gm 11/10/24 22:00 11/11/24 06:29 Mupirocin Oint 2% 15 Gm Tube TOP 11/17/24 21:59 1 gm TID ASHWIN Administration Ondansetron HCl 4 mg 11/09/24 01:53 Ondansetron Inj 2 Mg/Ml Inj 2 Ml IV 12/09/24 01:52 Q6H PRN NAUSEA OR VOMITING Protocol Paroxetine HCl 20 mg 11/09/24 21:00 11/10/24 21:29 Paroxetine Hcl 10 Mg Tablet PO 12/09/24 20:59 20 mg HS ASHWIN Administration Pharmacy Consult 1 each 11/11/24 06:30 Vancomycin Pharmacy To Dose 1 Each Each IV 12/11/24 06:29 PRN PRN PROTOCOL Polyethylene Glycol 17 gm 11/09/24 09:00 11/11/24 08:14 Polyethylene Glycol 17 Gm Packet PO 12/09/24 08:59 17 gm QDAY ASHWIN Administration Risperidone 3 mg 11/09/24 21:00 11/10/24 21:27 Risperidone 1 Mg Tablet PO 12/09/24 20:59 3 mg HS ASHWIN Administration Sennosides 1 tab 11/09/24 02:09 Senna Tablet PO 12/09/24 02:08 QDAY PRN CONSTIPATION Protocol Sevelamer Carbonate 800 mg 11/09/24 08:00 11/11/24 08:14 Sevelamer Carbonate 800 Mg Tablet PO 12/09/24 07:59 800 mg TIDWM ASHWIN Administration Tamsulosin HCl 0.4 mg 11/09/24 09:00 11/11/24 08:14 Tamsulosin Hcl 0.4 Mg Capsule PO 12/09/24 08:59 0.4 mg QDAY ASHWIN Administration Plan 40-year-old male with MHx of CKD since July 2024, newly on HD TTS, T2DM, HTN, CHF, CAD, COPD, A-fib, seizure disorder, HLD, morbid obesity, presenting with SOB associated with fever, chills, nausea and vomiting and headaches. Complained of urinary symptoms including urgency and frequency. He was admitted for AHRF in setting of sepsis pneumonia. Renal function recovered and stable. Dialysis catheter to be discontinued. Added LASIX 20 mg daily for bilateral lower extremity edema. Continue treating GPC bacteremia. ARIANA (resolved) He has been on HD TTS with Dr. Dahl since Jul 2023 following ARIANA. At the time, CR 6.5, EGFR 11. Renal function likely showing improvement with CR 1.6 > 1.9 and EGFR 39. Likely ARIANA in settings of dehydration and/or UTI There is a chance he maybe taken of HD given improvement in renal function Will monitor urine output and renal function. Renal function stable, CR 1.2, BUN 35, GFR >68. Urine output remains good. ? DC dialysis catheter ? Renally dose meds, avoid overdiuresis and NEPHROTOXINS ? Daily CMP ? Added LASIX 20 mg daily for lower extremity edema. Acute hypoxic respiratory failure 2/2 Sepsis 2/2 Healthcare associated pneumonia Lactic acidosis Complicated UTI Diabetes mellitus type 2 Hypomagnesemia Atrial fibrillation NSTEMI, likely type II CAD CHF Depression Coagulopathy ? Managed by primary team Thank you for the opportunity to participate in the patient's care. Case was discussed with attending, Dr. Bermeo. Robina Galvan, PGYI Attending Provider Attestation/Addendum Patient seen and examined with resident physician Dr. Quarles. Note reviewed, agree with findings and recommendations. Patient had been receiving dialysis for the last 3 months for cardiorenal syndrome. Started to make urine. Clinically euvolemic. Creatinine markedly improved to 1.9. Hold dialysis. Admitted with low blood pressure-suspect catheter related bacteremia. Blood cultures came back positive for MRSA. Will DC dialysis catheter. Xarelto on hold. Thank you Carter for allowing me to participate in the care of Mr. Bella
--- NOTE | 2024-11-11 13:49 | PD.RESPRO ---
Documentation for date of: 11/11/24 Subjective Subjective Interval history: Patient examined at bedside. Has no major complaints. Telemetry reviwed--remains in afib with controlled rate. Blood cultures from 11/08 returned positive for MRSA. Patient was started on vancomycin and will continue cefepime for HAP. Echo and repeat blood cultures are pending. Patient will need repeat sleep study after discharge as he continues to have apnic episodes during sleep. Start BiPAP HS during hospitalization. Holding Xaralto for one more day to remove TDC tomororw. Nephrolgy started patient on Lasix 20 mg daily PO for diuresis. Exam Vital Signs Temp Pulse Resp BP Pulse Ox O2 Del Method O2 Flow Rate 98 F 79 20 123/80 99 Nasal Cannula 1 11/11/24 01:28 11/11/24 13:05 11/11/24 13:05 11/11/24 09:02 11/11/24 13:05 11/11/24 04:00 11/11/24 13:05 Narrative Exam General: Elderly male, obese, no acute distress, cooperative HEENT: NCAT, No JVD noted. Mucosa moist. Pupils are equal and reactive to light bilaterally Cardiovascular: Normal S1 and S2. Regular rate and rhythm. Respiratory: Lungs are clear to auscultation bilaterally. No wheezing or crackles heard. Abdomen: Soft, nontender, not distended, normal bowel sounds. Skin: Warm to touch, dry, lower extremity venous stasis discoloration Musculoskeletal: No gross injuries. Able to move all 4 extremities. +1 pitting edema. Neuro: Alert and oriented x3. No focal neuro deficits. Psych: Normal affect and mood Objective Labs 11/11/24 05:36 11/11/24 05:36 Labs: Laboratory Results - last 24 hr 11/10/24 11/11/24 12:56 05:36 WBC 7.5 RBC 3.77 L Hgb 10.5 L Hct 33.5 L MCV 89 MCH 27.9 MCHC 31.3 RDW Std Deviation 46.3 H Plt Count 112 L D Neut % (Auto) 74 Lymph % (Auto) 12 Wells % (Auto) 10 Eos % (Auto) 4 Baso % (Auto) 0 Neut # (Auto) 5.6 Lymph # (Auto) 0.9 L Wells # (Auto) 0.7 Eos # (Auto) 0.3 Baso # (Auto) 0.0 Immature Gran # (Auto) 0.03 H Absolute Nucleated RBC 0.00 Immature Gran % 0 Nucleated RBC % 0 Sodium 139 Potassium 4.3 Chloride 106 Carbon Dioxide 26.1 Anion Gap 7 BUN 35 H Creatinine 1.2 D Estim Creat Clear Calc 96.7 eGFR > 60 BUN/Creatinine Ratio 29 H Glucose 156 H Calculated Osmolality 288 Calcium 8.9 Corrected Calcium 9.2 Phosphorus 3.6 Magnesium 2.2 Total Bilirubin 0.9 AST 15 ALT 9 L Alkaline Phosphatase 44 L Troponin I 0.049 H* Total Protein 6.6 Albumin 3.6 Globulin 3.0 Albumin/Globulin Ratio 1.2 ABG Interpretation ABG results: 11/09/24 04:38 ABG pH 7.35 ABG pCO2 49 H ABG pO2 124 H ABG HCO3 27 H ABG O2 Saturation 99 H ABG Base Excess 1 Quality Measures Quality Measures sepsis Current suspected stage: ruled out Possible source: pulmonary Blood cultures ordered: yes Antibiotic ordered: Yes Assessment & Plan Assessment Current Active Medications: Generic Name Dose Route Start Last Admin Trade Name Freq PRN Reason Stop Dose Admin Acetaminophen 650 mg 11/09/24 01:53 Acetaminophen 325 Mg Tablet PO 12/09/24 01:52 Q6H PRN Fever >100.4 Acetaminophen 650 mg 11/09/24 01:53 11/10/24 11:12 Acetaminophen 325 Mg Tablet PO 12/09/24 01:52 650 mg Q6H PRN Administration PAIN SCALE 1-3 (mild Hydrocodone Bitart/Acetaminophen 1 tab 11/09/24 01:53 Hydrocodone/Apap 5/325 Tablet PO 11/14/24 01:52 Q4HR PRN PAIN SCALE 4-6 (Moderate Albuterol/Ipratropium 3 ml 11/09/24 07:00 11/11/24 13:04 Albuterol/Ipratropium (Duoneb) Rt Aspen 3 Ml Nebu INH 12/09/24 06:59 3 ml Q6HRRT ASHWIN Administration Albuterol/Ipratropium 3 ml 11/09/24 14:20 Albuterol/Ipratropium (Duoneb) Rt Aspen 3 Ml Nebu INH 12/09/24 18:59 Q6HRRT PRN WHEEZING Aspirin 81 mg 11/09/24 09:00 11/11/24 08:14 Aspirin Ec 81 Mg Tabec PO 12/09/24 08:59 81 mg QDAY ASHWIN Administration Bisacodyl 10 mg 11/09/24 02:03 Bisacodyl 10 Mg Supp RI 12/09/24 02:14 Q72H PRN constipation Protocol Dextrose 25 ml 11/09/24 01:53 Dextrose 50%-Water Inj 50 Ml Syringe IV 12/09/24 01:52 Q15MIN PRN BG 50-70 responsive npo pt Dextrose 50 ml 11/09/24 10:46 Dextrose 50%-Water Inj 50 Ml Syringe IV 12/09/24 10:45 Q15MIN PRN BG <50 OR BG <70 & pt unresponsive Diltiazem HCl 120 mg 11/09/24 09:00 11/11/24 08:14 Diltiazem Cd 120 Mg Capcr PO 12/09/24 08:59 120 mg QDAY ASHWIN Administration Furosemide 20 mg 11/11/24 09:00 11/11/24 09:02 Furosemide 20 Mg Tablet PO 12/11/24 08:59 20 mg QAM ASHWIN Administration Glucagon 1 mg 11/09/24 10:46 Glucagon Inj 1 Mg Vial IM Q15MIN PRN BG <70, and no IV access Cefepime HCl 2 gm/ Sodium 50 mls @ 100 mls/hr 11/09/24 06:00 11/11/24 06:29 Chloride IV 11/16/24 05:59 100 mls/hr Q8HR ASHWIN Administration Insulin Glargine 10 unit 11/09/24 21:00 11/10/24 21:32 Insulin Glargine (Lantus) 5 Unit/0.05 Ml (Per 5 Units) SC 12/09/24 20:59 10 unit HS ASHWIN Administration Insulin Human Lispro 3 unit 11/09/24 11:30 11/11/24 11:51 Insulin Lispro (Admelog) 1 Unit/0.01 Ml Unit SC 12/09/24 11:29 3 unit ACHS ASHWIN Administration Insulin Human Lispro 0 unit 11/09/24 11:30 11/11/24 11:53 Insulin Lispro (Admelog) 1 Unit/0.01 Ml Unit SC 12/09/24 11:29 Not Given ACHS ASHWIN Protocol Magnesium Hydroxide 30 ml 11/09/24 02:03 Milk Of Magnesia Susp 30 Ml Udc PO 12/09/24 02:14 Q72H PRN Constipation Protocol Mirtazapine 45 mg 11/09/24 21:00 11/10/24 21:28 Mirtazapine 15 Mg Tablet PO 12/09/24 20:59 45 mg HS ASHWIN Administration Mupirocin 0 gm 11/10/24 22:00 11/11/24 06:29 Mupirocin Oint 2% 15 Gm Tube TOP 11/17/24 21:59 1 gm TID ASHWIN Administration Ondansetron HCl 4 mg 11/09/24 01:53 Ondansetron Inj 2 Mg/Ml Inj 2 Ml IV 12/09/24 01:52 Q6H PRN NAUSEA OR VOMITING Protocol Paroxetine HCl 20 mg 11/09/24 21:00 11/10/24 21:29 Paroxetine Hcl 10 Mg Tablet PO 12/09/24 20:59 20 mg HS ASHWIN Administration Pharmacy Consult 1 each 11/11/24 06:30 Vancomycin Pharmacy To Dose 1 Each Each IV 12/11/24 06:29 PRN PRN PROTOCOL Polyethylene Glycol 17 gm 11/09/24 09:00 11/11/24 08:14 Polyethylene Glycol 17 Gm Packet PO 12/09/24 08:59 17 gm QDAY ASHWIN Administration Risperidone 3 mg 11/09/24 21:00 11/10/24 21:27 Risperidone 1 Mg Tablet PO 12/09/24 20:59 3 mg HS ASHWIN Administration Sennosides 1 tab 11/09/24 02:09 Senna Tablet PO 12/09/24 02:08 QDAY PRN CONSTIPATION Protocol Sevelamer Carbonate 800 mg 11/09/24 08:00 11/11/24 11:51 Sevelamer Carbonate 800 Mg Tablet PO 12/09/24 07:59 800 mg TIDWM ASHWIN Administration Tamsulosin HCl 0.4 mg 11/09/24 09:00 11/11/24 08:14 Tamsulosin Hcl 0.4 Mg Capsule PO 12/09/24 08:59 0.4 mg QDAY ASHWIN Administration Plan Andrew Bella is 64-year-old male with past medical history significant for hypertension, diabetes mellitus type 2, CHF, CAD, COPD, A-fib, seizure disorder, hyperlipidemia, morbid obesity and ARIANA on hemodialysis TTS schedule was brought in by ambulance to ED after developing SOB for 1 day. The patient is admitted to [facility] telemetry unit for further management of acute hypoxic respiratory failure secondary to sepsis secondary to healthcare associated pneumonia. #MRSA bacteremia #Healthcare associated pneumonia #Complicated UTI Patient presented with SOB, has been on [facility], and was requiring 5 L oxygen via facemask for proper oxygen saturation. Met 3/4 SIRS criteria with temperature 102.9 and white count of 27.4, tachypnea with source of infection as right-sided pneumonia and UTI. End organ damage evidenced by ARIANA. Did not receive 30 cc/kg of crystalloid fluid bolus because of concern for CHF in ED Urine culture negative. -started vancomycin 11/11 (for two weeks until first negative culture) -source is most likely from TDC--planning to remove tomorrow - Continue cefepime 2 g TID - stopped doxycycline 100 Mg twice daily - repeat BC pending - DuoNeb every 6 hourly scheduled - Daily a.m. labs for CBC, CMP and electrolytes - Oxygen as needed #ARIANA-resolved The patient developed ARIANA on last admission on July 2024 and was started on hemodialysis Currently renal function much improved with creatinine of 1.6 and GFR 48, and he is bringing out urine ARIANA likely in setting of sepsis with hypoperfusion. -nephro recs: stop HD, remove TDC, follow up in 2 weeks -Started on PO Lasix 20mg daily -INOs -oral hydration - Avoid nephrotoxic drugs - Renally dose medications - Daily a.m. labs for CMP and electrolytes #Hx MARK Patient demand increasing at night with apneic episodes reported by nursing. Further questioning patient stated that he has been previously diagnosed with MARK about 5 years ago. Does not endorse using machine at home. ? Start BiPAP at bedtime ? Patient will need to repeat sleep outpatient #History of insulin-dependent type 2 diabetes, well controlled On admission initial glucose 242. Last A1c 7.1 on 08/10/24 A1c on this admission 6.9 -Held home medications -Bedside blood glucose checks ACHS -Continue 10 units glargine ? 3 units lispro TID -Insulin lispro sliding scale -Carb consistent low diet #Hypomagnesemia Presented with magnesium level of 1.5 - Received 4 g magnesium sulfate - Daily a.m. labs for magnesium, replete as needed #Atrial fibrillation Patient has history of atrial fibrillation - resume diltiazem ER 120 Mg daily - hold rivaroxaban 20 Mg daily until TDC removed - Daily a.m. labs for electrolytes, maintain potassium greater than 4 and magnesium greater than 2 #NSTEMI, likely type II Presented with troponin of 0.046 Appears that patient's baseline troponin is slightly elevated, may be due to end-stage renal disease -delta acheived #CAD #CHF - On aspirin 81 Mg daily #Depression - mirtazapine 45 Mg daily at night -paroxetine 20 Mg daily #Coagulopathy PT 13.7, APTT 21.1 Secondary to sepsis -platelets downtrending: stop heparin and repeat CBC - Monitor daily a.m. labs for PT and PTT #Acute hypoxic respiratory failure-resolved #Lactic acidosis-resolved Health maintenance: Dispo: MRSA bacteremia, remove TDC tomorrow DVT prophylaxis: not indicated Diet: Renal diet Code: Full code The patient's management plan was discussed with my attending physician Dr. Oliveira. Shanae Pandya, PGY-1 Attending Provider Attestation/Addendum Index sacral region, I have discussed and was present for the essential components of the history, physical examination, diagnosis, and treatment plan with the resident. I agree with the patient's care as documented by the resident and amended herein by me. Carter Oliveira, . Patient seen and evaluated this AM. Vital signs stable, patient afebrile overnight, I/O 1450/2925. 1 bowel movement reported overnight. Patient presently admitted currently being treated for sepsis secondary to hospital-acquired pneumonia, possible UTI, ARIANA (resolved) and recently diagnosed MRSA bacteremia. Significant labs today include a stable hemoglobin of 10, platelets low at 112 with stable and creatinine which is down trended to 1.2. Blood cultures today did demonstrate MRSA. Patient is presently on cefepime and started on vancomycin last night. The patient Xarelto has been held, last dose given on the night of 09 November. Will most likely attempted to pull his TDC which may very well be the source of his infection, tomorrow when it is safer, allowing for approximately 48 hours off of his anticoagulation. I did explain to the patient the plan he agrees. Will continue to monitor closely. nt has been carefully reviewed, there may still be some phonetic and other typographical errors. These errors are purely grammatical due to imperfections in the software program and should not be construed in any way to compromise the substance of the patient's medical care during this visit.
[2024-11-11] MEDS: INSULIN GLARGINE (Lantus) 5 UNIT/0.05 ML (PER 5 UNITS) 10 UNIT SC (20:39)
[2024-11-11] MEDS: MIRTAZAPINE 15 MG TABLET 45 MG PO (20:44)
[2024-11-11] MEDS: PARoxetine HCL 10 MG TABLET 20 MG PO (20:45)
[2024-11-11] MEDS: risperiDONE 1 MG TABLET 3 MG PO (20:45)
[2024-11-12] VITALS (15 sets, daily range): BP systolic 149–166; BP diastolic 75–87; PULSE 71–105; RESP 12–98; TEMP 35.9–36.3; O2SAT 93–100; BMI 43.0; BMI 14.0
[2024-11-12] MEDS: ALBUTEROL/IPRATROPIUM (Duoneb) RT SOL 3 ML NEBU INH ×4 (01:03→19:18)
[2024-11-12] MEDS: CEFEPIME INJ 2 GM in SODIUM CHLORIDE 0.9% (Popper) 50 ML IV ×3 (05:25→21:18)
[2024-11-12 05:39] LABS: Basophils # (Auto) 0.1 Thou/mm3 (0.0-0.2); Basophils % (Auto) 1 % (0-2.5); Eosinophils # (Auto) 0.4 Thou/mm3 (0.0-0.5); Eosinophils % (Auto) 6 % (0-10); Hematocrit 35.6 % (41.0-53.0); Hemoglobin 11.1 g/dL (13.5-16.0); Immature Granulocytes % (Auto) 0 % (0-0); Immature Granulocytes Auto 0.02 Thou/mm3 (0.00-0.00); Lymphocytes # (Auto) 1.2 Thou/mm3 (1.0-4.8); Lymphocytes % (Auto) 19 % (10-50); Mean Corpuscular HGB Conc 31.2 g/dl (31.0-37.0); Mean Corpuscular Hemoglobin 27.8 pg (25.0-35.0); Mean Corpuscular Volume 89 fL (80-100); Monocytes # (Auto) 0.7 Thou/mm3 (0.0-0.8); Monocytes % (Auto) 11 % (0-12); Neutrophils # (Auto) 4.2 Thou/mm3 (1.8-7.7); Neutrophils % (Auto) 64 % (37-80); Nucleated Red Blood Cell % 0 /100 WBC (0); Platelet Count 166 Thou/mm3 (140-440); RDW Standard Deviation 45.8 fL (35.1-43.9); White Blood Count 6.6 Thou/mm3 (3.8-10.6)
[2024-11-12 05:58] LABS: Alanine Aminotransferase 12 U/L (10-49); Albumin, Serum 3.9 gm/dL (3.4-4.8); Albumin/Globulin Ratio 1.3 (1.2-2.2); Alkaline Phosphatase 51 U/L (46-116); Anion Gap 7 (7-16); Aspartate Amino Transferase 16 U/L (0-34); BUN/Creatinine Ratio 26 Ratio (12-20); Bilirubin,Total 0.7 mg/dL (0.3-1.2); Blood Urea Nitrogen 31 mg/dL (9-23); Calcium 9.1 mg/dL (8.3-10.6); Calcium (Corrected) 9.2 mg/dL (8.5-10.1); Carbon Dioxide 28.4 mMol/L (20.0-31.0); Chloride 107 mMol/L (98-107); Creatinine (Component) 1.2 mg/dL (0.6-1.3); Estimated Creatinine Clearance 96.7 mL/min (>60); Globulin 3.1 gm/dL (2.3-3.5); Glucose 116 mg/dL (74-106); Osmolality,Calculated 290 (275-295); Phosphorous 3.9 mg/dL (2.4-5.1); Potassium 4.3 mMol/L (3.4-5.1); Sodium 142 mMol/L (136-145); Vancomycin,Random 7.8 mcg/mL; eGFR > 60 See Note
[2024-11-12] MEDS: SEVELAMER CARBONATE 800 MG TABLET PO ×3 (07:44→17:57)
--- NOTE | 2024-11-12 08:28 | ECHO_ITS ---
Transthoracic Echo Report Ht (in): 74 Wt (lb): 334 Exam Location: Echo Lab Status: Inpatient [facility] Supervisor: Cristy Navarro Indications: Procedure Performed: BP: 144 / 72 HR: 80 Technical Quality: Technically difficult study MEASUREMENTS (Male / Female) Normal Values 2D ECHO LV Diastolic Diameter PLAX 6.0 cm 4.2 - 5.9 / 3.9 - 5.3 cm LV Systolic Diameter PLAX 4.1 cm IVS Diastolic Thickness 1.4 cm 0.6 - 1.0 / 0.6 - 0.9 cm LVPW Diastolic Thickness 1.3 cm 0.6 - 1.0 / 0.6 - 0.9 cm LV Relative Wall Thickness 0.4 LVOT Diameter 1.9 cm Aortic Root Diameter 3.5 cm LA Volume Index 40.7 cm?/m? 16 - 28 cm?/m? DOPPLER AV Peak Velocity 171.0 cm/s AV Peak Gradient 11.7 mmHg AV Mean Gradient 6.0 mmHg AV Velocity Time Integral 35.0 cm LVOT Peak Velocity 127.0 cm/s LVOT Peak Gradient 6.5 mmHg LVOT Velocity Time Integral 24.3 cm LVOT Cardiac Index 1915.4 cm?/min?m? AV Area Cont Eq vti 2.0 cm? AV Area Cont Eq pk 2.1 cm? MV Area PHT 5.2 cm? MR Peak Velocity 440.5 cm/s MR Peak Gradient 77.6 mmHg Mitral E Point Velocity 96.5 cm/s LV E' Lateral Velocity 13.7 cm/s Mitral E to LV E' Lateral Ratio 7.0 LV E' Septal Velocity 7.5 cm/s Mitral E to LV E' Septal Ratio 12.8 PV Peak Velocity 102.0 cm/s PV Peak Gradient 4.2 mmHg FINDINGS Left Ventricle Normal left ventricular size, systolic function with no obvious regional wall motion abnormalities. Mild LVH. Normal left ventricular diastolic filling pattern for age. The ejection fraction is visually estimated at 55 %. Right Ventricle The right ventricular size is moderately increased with normal systolic function. Left Atrium Mildly increased left atrial volume 40.7 mL/m?. Right Atrium The right atrial cavity size is moderately increased. Atrial Septum The interatrial septum appears normal with no evidence of a shunt. Aorta The aorta is normal by two-dimensional, color flow and Doppler interrogation. Mitral Valve Mild mitral regurgitation. Aortic Valve The aortic valve is trileaflet and normal by two-dimensional, color flow and Doppler interrogation. There is no significant aortic valve regurgitation. Tricuspid Valve There is trace tricuspid valve regurgitation. Pulmonic Valve The pulmonic valve is not well visualized. There is no significant pulmonic valve regurgitation. Vessels Inferior vena cava not well visualized. Pericardium The pericardium is normal by two-dimensional imaging. There is no significant pericardial effusion. CONCLUSIONS Indication: MRSA + Bcx Poor quality images. No clear valvular vegetations. Consider REECE if high clinical index of suspicion. Normal LV size and function. Estimated EF 55-60%. Mild LVH. Diastolic dysfunction present but cannot be graded because of the A-fib. Moderately dilated RV. Normal RV function. Elevated RVSP. Mild biatrial dilatation. Right greater than left. Mild MR. Trace TR. Nacho Yoon (Electronically Signed) Final Date: 14 November 2024 14:30
[2024-11-12] MEDS: TAMSULOSIN HCL 0.4 MG CAPSULE PO (08:42)
[2024-11-12] MEDS: POLYETHYLENE GLYCOL 17 GM PACKET PO (08:42)
[2024-11-12] MEDS: VANCOMYCIN/D5W 1,250 MG IVPB 250 ML 120 MG IV ×3 (08:43→21:59)
[2024-11-12] MEDS: Furosemide 20 MG TABLET PO (08:43)
[2024-11-12] MEDS: DILTIAZEM CD 120 MG CAPCR PO (08:43)
--- NOTE | 2024-11-12 09:25 | PD.RESPRO ---
Documentation for date of: 11/12/24 Subjective Subjective Interval history: Mr. Bella is a 64-year-old male with MHx of CKD since July 2024, newly on HD TTS, T2DM, HTN, CHF, CAD, COPD, A-fib, seizure disorder, HLD, morbid obesity, presenting with SOB associated with fever, chills, nausea and vomiting and headaches. Complained of urinary symptoms including urgency and frequency. He was admitted for AHRF in setting of sepsis pneumonia. He has been on HD TTS since July 2024 when he developed an ARIANA during admission. Currently labs are significant for sodium 135, CR 1.6 > 1.9, BUN 35, GFR 48 > 39, GLUCOSE 270, A1c 6.9, TB 1.3, troponin 0.046 > 0.066, BNP 239, cholesterol 127, WBC 29.9, Hgb 12.5, PLT 213. Showing positive leukocyte ESTRACE, RBC 5, WBC 9, protein 1+. CXR suspicious for pneumonia in the right base. EKG showing A-fib with HR 61, no acute ST changes. Currently on ZOSYN and VANCOMYCIN. Nephrology consulted for inpatient hemodialysis. PMH: As mentioned above SHX: S/p spinal stenosis surgery of cervical vertebra, appendectomy Family history: Unremarkable Medications: Aspirin 81 Mg, diltiazem 120 Mg ER, Dulcolax, Fleet enema, milk of magnesium as needed for constipation, lidocaine patch, mirtazapine 45 Mg daily at bedtime, paroxetine 20 Mg daily, PEG 17 g as needed for constipation, Zuly-Cruz, sublaminar, risperidone 3 Mg at night, rivaroxaban 20 Mg daily, senna, tamsulosin 0.4 Mg daily, Tradjenta 5 Mg daily. 11/09/2024 examined at bedside. Feels better today. Denies fever, chills, headaches, chest pain, sob, cough, GI or urinary symptoms. Skin around dialysis catheter showing elevated erythema, however nontender, no purulent discharge. Slightly worsening CR 1.6 > 1.9, likely dehydration. Agree with 500 cc fluids. No urine output recorded. Possibly he may come off HD given improvement of renal function since Jul 2023. No plan for HD today. 11/10/2024 examined at bedside. Denies fever, chills, headaches, chest pain, sob, cough, GI or urinary symptoms. LE scaling improving. Renal function improved, sodium 135, BUN 40, creatinine 1.7, EGFR 44. Likely won't need further HD, will DC cath. Follow-up outpatient in 2 weeks. 11/11/2024 examined at bedside. No new symptoms or worsening of symptoms. Denies fever, chills, headaches, chest pain, sob, cough, GI or urinary symptoms. GPC bacteremia, on DOXY and VANC. Dialysis cath removal postponed since he is on XARELTO (on HOLD). Renal function stable, CR 1.2, BUN 35, GFR greater than 60. Had 1+ LE edema bilaterally, with LASIX 20 daily. 11/12/2024 examined at bedside. Denies fever, chills, headaches, chest pain, sob, cough, GI or urinary symptoms. XARELTO on hold for HD cath removal. Renal function normal with CR 1.2, GFR >60, BUN 31. On LASIX 20 mg daily, urine out good, LE edema improved. Exam Vital Signs Temp Pulse Resp BP Pulse Ox O2 Del Method O2 Flow Rate 97.0 F 94 16 161/87 H 99 Room Air 1 11/12/24 07:49 11/12/24 08:43 11/12/24 07:49 11/12/24 08:43 11/12/24 07:49 11/12/24 07:49 11/11/24 13:05 FiO2 30 11/12/24 02:19 Narrative Exam General: Normal appearing adult male, NAD. HEENT: Moist mucous membranes, oropharynx clear Neck: Supple, No masses, No JVD CVS: Irregularly irregular heart rate, No murmurs, rubs or gallops Lungs: CTAB, no W RR. Abd: Soft, NT/ND, +BS, no organomegaly Ext: no lower extremity edema, warm and well perfused Skin: No rash Psych: Appropriate mood and affect Objective Labs 11/14/24 04:39 11/14/24 04:39 Labs: Laboratory Results - last 24 hr 11/12/24 05:03 WBC 6.6 RBC 4.00 L Hgb 11.1 L Hct 35.6 L MCV 89 MCH 27.8 MCHC 31.2 RDW Std Deviation 45.8 H Plt Count 166 D Neut % (Auto) 64 Lymph % (Auto) 19 [place] % (Auto) 11 Eos % (Auto) 6 Baso % (Auto) 1 Neut # (Auto) 4.2 Lymph # (Auto) 1.2 [place] # (Auto) 0.7 Eos # (Auto) 0.4 Baso # (Auto) 0.1 Immature Gran # (Auto) 0.02 H Absolute Nucleated RBC 0.00 Immature Gran % 0 Nucleated RBC % 0 Sodium 142 Potassium 4.3 Chloride 107 Carbon Dioxide 28.4 Anion Gap 7 BUN 31 H Creatinine 1.2 Estim Creat Clear Calc 96.7 eGFR > 60 BUN/Creatinine Ratio 26 H Glucose 116 H Calculated Osmolality 290 Calcium 9.1 Corrected Calcium 9.2 Phosphorus 3.9 Total Bilirubin 0.7 AST 16 ALT 12 Alkaline Phosphatase 51 Total Protein 7.0 Albumin 3.9 Globulin 3.1 Albumin/Globulin Ratio 1.3 Random Vancomycin 7.8 ABG Interpretation ABG results: 11/09/24 04:38 ABG pH 7.35 ABG pCO2 49 H ABG pO2 124 H ABG HCO3 27 H ABG O2 Saturation 99 H ABG Base Excess 1 Quality Measures Quality Measures sepsis Current suspected stage: sepsis Possible source: pulmonary Blood cultures ordered: yes Antibiotic ordered: Yes Assessment & Plan Assessment Current Active Medications: Generic Name Dose Route Start Last Admin Trade Name Freq PRN Reason Stop Dose Admin Acetaminophen 650 mg 11/09/24 01:53 Acetaminophen 325 Mg Tablet PO 12/09/24 01:52 Q6H PRN Fever >100.4 Acetaminophen 650 mg 11/09/24 01:53 11/10/24 11:12 Acetaminophen 325 Mg Tablet PO 12/09/24 01:52 650 mg Q6H PRN Administration PAIN SCALE 1-3 (mild Hydrocodone Bitart/Acetaminophen 1 tab 11/09/24 01:53 Hydrocodone/Apap 5/325 Tablet PO 11/14/24 01:52 Q4HR PRN PAIN SCALE 4-6 (Moderate Albuterol/Ipratropium 3 ml 11/09/24 07:00 11/12/24 07:04 Albuterol/Ipratropium (Duoneb) Rt Aspen 3 Ml Nebu INH 12/09/24 06:59 3 ml Q6HRRT ASHWIN Administration Albuterol/Ipratropium 3 ml 11/09/24 14:20 Albuterol/Ipratropium (Duoneb) Rt Aspen 3 Ml Nebu INH 12/09/24 18:59 Q6HRRT PRN WHEEZING Aspirin 81 mg 11/09/24 09:00 11/11/24 08:14 Aspirin Ec 81 Mg Tabec PO 12/09/24 08:59 81 mg QDAY ASHWIN Administration Bisacodyl 10 mg 11/09/24 02:03 Bisacodyl 10 Mg Supp NM 12/09/24 02:14 Q72H PRN constipation Protocol Dextrose 25 ml 11/09/24 01:53 Dextrose 50%-Water Inj 50 Ml Syringe IV 12/09/24 01:52 Q15MIN PRN BG 50-70 responsive npo pt Dextrose 50 ml 11/09/24 10:46 Dextrose 50%-Water Inj 50 Ml Syringe IV 12/09/24 10:45 Q15MIN PRN BG <50 OR BG <70 & pt unresponsive Diltiazem HCl 120 mg 11/09/24 09:00 11/12/24 08:43 Diltiazem Cd 120 Mg Capcr PO 12/09/24 08:59 120 mg QDAY ASHWIN Administration Furosemide 20 mg 11/11/24 09:00 11/12/24 08:43 Furosemide 20 Mg Tablet PO 12/11/24 08:59 20 mg QAM ASHWIN Administration Glucagon 1 mg 11/09/24 10:46 Glucagon Inj 1 Mg Vial IM Q15MIN PRN BG <70, and no IV access Cefepime HCl 2 gm/ Sodium 50 mls @ 100 mls/hr 11/09/24 06:00 11/12/24 05:25 Chloride IV 11/16/24 05:59 100 mls/hr Q8HR ASHWIN Administration Vancomycin HCl/Dextrose 250 mls @ 120 mls/hr 11/12/24 06:30 11/12/24 08:43 Vancomycin/D5w 1,250 Mg Ivpb IV 11/19/24 06:29 120 mls/hr Q8HR ASHWIN Administration Protocol Insulin Glargine 10 unit 11/09/24 21:00 11/11/24 20:39 Insulin Glargine (Lantus) 5 Unit/0.05 Ml (Per 5 Units) SC 12/09/24 20:59 10 unit HS ASHWIN Administration Insulin Human Lispro 3 unit 11/09/24 11:30 11/12/24 08:29 Insulin Lispro (Admelog) 1 Unit/0.01 Ml Unit SC 12/09/24 11:29 Not Given ACHS ASHWIN Insulin Human Lispro 0 unit 11/09/24 11:30 11/12/24 08:30 Insulin Lispro (Admelog) 1 Unit/0.01 Ml Unit SC 12/09/24 11:29 Not Given ACHS ASHWIN Protocol Magnesium Hydroxide 30 ml 11/09/24 02:03 Milk Of Magnesia Susp 30 Ml Udc PO 12/09/24 02:14 Q72H PRN Constipation Protocol Mirtazapine 45 mg 11/09/24 21:00 11/11/24 20:44 Mirtazapine 15 Mg Tablet PO 12/09/24 20:59 45 mg HS ASHWIN Administration Mupirocin 0 gm 11/10/24 22:00 11/12/24 05:30 Mupirocin Oint 2% 15 Gm Tube TOP 11/17/24 21:59 Not Given TID ASHWIN Ondansetron HCl 4 mg 11/09/24 01:53 Ondansetron Inj 2 Mg/Ml Inj 2 Ml IV 12/09/24 01:52 Q6H PRN NAUSEA OR VOMITING Protocol Paroxetine HCl 20 mg 11/09/24 21:00 11/11/24 20:45 Paroxetine Hcl 10 Mg Tablet PO 12/09/24 20:59 20 mg HS ASHWIN Administration Pharmacy Consult 1 each 11/11/24 06:30 Vancomycin Pharmacy To Dose 1 Each Each IV 12/11/24 06:29 PRN PRN PROTOCOL Polyethylene Glycol 17 gm 11/09/24 09:00 11/12/24 08:42 Polyethylene Glycol 17 Gm Packet PO 12/09/24 08:59 17 gm QDAY ASHWIN Administration Risperidone 3 mg 11/09/24 21:00 11/11/24 20:45 Risperidone 1 Mg Tablet PO 12/09/24 20:59 3 mg HS ASHWIN Administration Sennosides 1 tab 11/09/24 02:09 Senna Tablet PO 12/09/24 02:08 QDAY PRN CONSTIPATION Protocol Sevelamer Carbonate 800 mg 11/09/24 08:00 11/12/24 07:44 Sevelamer Carbonate 800 Mg Tablet PO 12/09/24 07:59 800 mg TIDWM ASHWIN Administration Tamsulosin HCl 0.4 mg 11/09/24 09:00 11/12/24 08:42 Tamsulosin Hcl 0.4 Mg Capsule PO 12/09/24 08:59 0.4 mg QDAY ASHWIN Administration Plan 40-year-old male with MHx of CKD since July 2024, newly on HD TTS, T2DM, HTN, CHF, CAD, COPD, A-fib, seizure disorder, HLD, morbid obesity, presenting with SOB associated with fever, chills, nausea and vomiting and headaches. Complained of urinary symptoms including urgency and frequency. He was admitted for AHRF in setting of sepsis pneumonia. Renal function recovered and stable. Dialysis catheter to be discontinued. Added LASIX 20 mg daily for bilateral lower extremity edema. Blood cx grew Staphylococcus simulans, possibly contamanant, afebrile, no leukocytosis. ARIANA (resolved) He has been on HD TTS with Dr. Dahl since Jul 2023 following ARIANA. At the time, CR 6.5, EGFR 11. Renal function likely showing improvement with CR 1.6 > 1.9 and EGFR 39. Likely ARIANA in settings of dehydration and/or UTI There is a chance he maybe taken of HD given improvement in renal function Will monitor urine output and renal function. Renal function stable, CR 1.2, BUN 31, GFR >60. Urine output remains good. ? DC dialysis catheter ? Renally dose meds, avoid overdiuresis and NEPHROTOXINS ? Daily CMP ? On LASIX 20 mg daily Acute hypoxic respiratory failure 2/2 Sepsis 2/2 Healthcare associated pneumonia Lactic acidosis Complicated UTI Diabetes mellitus type 2 Hypomagnesemia Atrial fibrillation NSTEMI, likely type II CAD CHF Depression Coagulopathy ? Managed by primary team Thank you for the opportunity to participate in the patient's care. Case was discussed with attending, Dr. Bermeo. Robina Galvan DO PGYI Attending Provider Attestation/Addendum Patient seen and examined with resident physician Dr. Quarles. Note reviewed, agree with findings and recommendations. Patient had been receiving dialysis for the last 3 months for cardiorenal syndrome. Started to make urine. Clinically euvolemic. Creatinine markedly improved to 1. Hold dialysis. Admitted with low blood pressure-from catheter related bacteremia. Blood cultures came back positive for MRSA. Will DC dialysis catheter. Xarelto on hold.
--- NOTE | 2024-11-12 09:27 | PC.SS ---
Follow up note: On IV antibiotic. Blood cultures are pending. Pt is from [facility] and will return upon dc. Pt will require transportation upon dc to [facility].
--- NOTE | 2024-11-12 14:48 | PD.RESPRO ---
Documentation for date of: 11/12/24 Subjective Subjective Interval history: Patient examined at bedside. No events overnight, no major complaints. Patient remains in A-fib with rate 80?90. CBC CMP unremarkable, sugars well controlled. Receiving IV vancomycin for treatment of MRSA bacteremia and cefepime for HAP. Planning to remove TDC this afternoon. Repeat blood cultures, echo are pending. ID consulted and recommendations pending. Exam Vital Signs Temp Pulse Resp BP Pulse Ox O2 Del Method O2 Flow Rate 96.9 F 89 18 152/87 H 100 Room Air 1 11/12/24 12:00 11/12/24 12:42 11/12/24 12:42 11/12/24 12:00 11/12/24 12:42 11/12/24 12:00 11/11/24 13:05 FiO2 30 11/12/24 02:19 Narrative Exam General: Elderly male, obese, no acute distress, cooperative HEENT: NCAT, No JVD noted. Mucosa moist. Pupils are equal and reactive to light bilaterally Cardiovascular: Normal S1 and S2. Regular rate and rhythm. Respiratory: Lungs are clear to auscultation bilaterally. No wheezing or crackles heard. Abdomen: Soft, nontender, not distended, normal bowel sounds. Skin: Warm to touch, dry, lower extremity venous stasis discoloration, TDC Musculoskeletal: No gross injuries. Able to move all 4 extremities. +1 pitting edema. Neuro: Alert and oriented x3. No focal neuro deficits. Psych: Normal affect and mood Objective Labs 11/12/24 05:03 11/12/24 05:03 Labs: Laboratory Results - last 24 hr 11/12/24 05:03 WBC 6.6 RBC 4.00 L Hgb 11.1 L Hct 35.6 L MCV 89 MCH 27.8 MCHC 31.2 RDW Std Deviation 45.8 H Plt Count 166 D Neut % (Auto) 64 Lymph % (Auto) 19 [place] % (Auto) 11 Eos % (Auto) 6 Baso % (Auto) 1 Neut # (Auto) 4.2 Lymph # (Auto) 1.2 [place] # (Auto) 0.7 Eos # (Auto) 0.4 Baso # (Auto) 0.1 Immature Gran # (Auto) 0.02 H Absolute Nucleated RBC 0.00 Immature Gran % 0 Nucleated RBC % 0 Sodium 142 Potassium 4.3 Chloride 107 Carbon Dioxide 28.4 Anion Gap 7 BUN 31 H Creatinine 1.2 Estim Creat Clear Calc 96.7 eGFR > 60 BUN/Creatinine Ratio 26 H Glucose 116 H Calculated Osmolality 290 Calcium 9.1 Corrected Calcium 9.2 Phosphorus 3.9 Total Bilirubin 0.7 AST 16 ALT 12 Alkaline Phosphatase 51 Total Protein 7.0 Albumin 3.9 Globulin 3.1 Albumin/Globulin Ratio 1.3 Random Vancomycin 7.8 ABG Interpretation ABG results: 11/09/24 04:38 ABG pH 7.35 ABG pCO2 49 H ABG pO2 124 H ABG HCO3 27 H ABG O2 Saturation 99 H ABG Base Excess 1 Quality Measures Quality Measures sepsis Current suspected stage: sepsis Possible source: pulmonary Blood cultures ordered: yes Antibiotic ordered: Yes Assessment & Plan Assessment Current Active Medications: Generic Name Dose Route Start Last Admin Trade Name Freq PRN Reason Stop Dose Admin Acetaminophen 650 mg 11/09/24 01:53 Acetaminophen 325 Mg Tablet PO 12/09/24 01:52 Q6H PRN Fever >100.4 Acetaminophen 650 mg 11/09/24 01:53 11/10/24 11:12 Acetaminophen 325 Mg Tablet PO 12/09/24 01:52 650 mg Q6H PRN Administration PAIN SCALE 1-3 (mild Hydrocodone Bitart/Acetaminophen 1 tab 11/09/24 01:53 Hydrocodone/Apap 5/325 Tablet PO 11/14/24 01:52 Q4HR PRN PAIN SCALE 4-6 (Moderate Albuterol/Ipratropium 3 ml 11/09/24 07:00 11/12/24 12:41 Albuterol/Ipratropium (Duoneb) Rt [place] 3 Ml Nebu INH 12/09/24 06:59 3 ml Q6HRRT ASHWIN Administration Albuterol/Ipratropium 3 ml 11/09/24 14:20 Albuterol/Ipratropium (Duoneb) Rt [place] 3 Ml Nebu INH 12/09/24 18:59 Q6HRRT PRN WHEEZING Aspirin 81 mg 11/09/24 09:00 11/12/24 12:53 Aspirin Ec 81 Mg Tabec PO 12/09/24 08:59 Not Given QDAY ASHWIN Bisacodyl 10 mg 11/09/24 02:03 Bisacodyl 10 Mg Supp AL 12/09/24 02:14 Q72H PRN constipation Protocol Dextrose 25 ml 11/09/24 01:53 Dextrose 50%-Water Inj 50 Ml Syringe IV 12/09/24 01:52 Q15MIN PRN BG 50-70 responsive npo pt Dextrose 50 ml 11/09/24 10:46 Dextrose 50%-Water Inj 50 Ml Syringe IV 12/09/24 10:45 Q15MIN PRN BG <50 OR BG <70 & pt unresponsive Diltiazem HCl 120 mg 11/09/24 09:00 11/12/24 08:43 Diltiazem Cd 120 Mg Capcr PO 12/09/24 08:59 120 mg QDAY ASHWIN Administration Furosemide 20 mg 11/11/24 09:00 11/12/24 08:43 Furosemide 20 Mg Tablet PO 12/11/24 08:59 20 mg QAM ASHWIN Administration Glucagon 1 mg 11/09/24 10:46 Glucagon Inj 1 Mg Vial IM Q15MIN PRN BG <70, and no IV access Cefepime HCl 2 gm/ Sodium 50 mls @ 100 mls/hr 11/09/24 06:00 11/12/24 05:25 Chloride IV 11/16/24 05:59 100 mls/hr Q8HR ASHWIN Administration Vancomycin HCl/Dextrose 250 mls @ 120 mls/hr 11/12/24 06:30 11/12/24 10:48 Vancomycin/D5w 1,250 Mg Ivpb IV 11/19/24 06:29 Infused Q8HR [facility] Infusion Protocol Insulin Glargine 10 unit 11/09/24 21:00 11/11/24 20:39 Insulin Glargine (Lantus) 5 Unit/0.05 Ml (Per 5 Units) SC 12/09/24 20:59 10 unit HS ASHWIN Administration Insulin Human Lispro 3 unit 11/09/24 11:30 11/12/24 11:36 Insulin Lispro (Admelog) 1 Unit/0.01 Ml Unit SC 12/09/24 11:29 Not Given ACHS ASHWIN Insulin Human Lispro 0 unit 11/09/24 11:30 11/12/24 11:36 Insulin Lispro (Admelog) 1 Unit/0.01 Ml Unit SC 12/09/24 11:29 Not Given ACHS [facility] Protocol Magnesium Hydroxide 30 ml 11/09/24 02:03 Milk Of Magnesia Susp 30 Ml Udc PO 12/09/24 02:14 Q72H PRN Constipation Protocol Mirtazapine 45 mg 11/09/24 21:00 11/11/24 20:44 Mirtazapine 15 Mg Tablet PO 12/09/24 20:59 45 mg HS ASHWIN Administration Mupirocin 0 gm 11/10/24 22:00 11/12/24 05:30 Mupirocin Oint 2% 15 Gm Tube TOP 11/17/24 21:59 Not Given TID ASHWIN Ondansetron HCl 4 mg 11/09/24 01:53 Ondansetron Inj 2 Mg/Ml Inj 2 Ml IV 12/09/24 01:52 Q6H PRN NAUSEA OR VOMITING Protocol Paroxetine HCl 20 mg 11/09/24 21:00 11/11/24 20:45 Paroxetine Hcl 10 Mg Tablet PO 12/09/24 20:59 20 mg HS ASHWIN Administration Pharmacy Consult 1 each 11/11/24 06:30 Vancomycin Pharmacy To Dose 1 Each Each IV 12/11/24 06:29 PRN PRN PROTOCOL Polyethylene Glycol 17 gm 11/09/24 09:00 11/12/24 08:42 Polyethylene Glycol 17 Gm Packet PO 12/09/24 08:59 17 gm QDAY ASHWIN Administration Risperidone 3 mg 11/09/24 21:00 11/11/24 20:45 Risperidone 1 Mg Tablet PO 12/09/24 20:59 3 mg HS ASHWIN Administration Sennosides 1 tab 11/09/24 02:09 Senna Tablet PO 12/09/24 02:08 QDAY PRN CONSTIPATION Protocol Sevelamer Carbonate 800 mg 11/09/24 08:00 11/12/24 11:43 Sevelamer Carbonate 800 Mg Tablet PO 12/09/24 07:59 800 mg TIDWM ASHWIN Administration Tamsulosin HCl 0.4 mg 11/09/24 09:00 11/12/24 08:42 Tamsulosin Hcl 0.4 Mg Capsule PO 12/09/24 08:59 0.4 mg QDAY ASHWIN Administration Plan Andrew Bella is 64-year-old male with past medical history significant for hypertension, diabetes mellitus type 2, CHF, CAD, COPD, A-fib, seizure disorder, hyperlipidemia, morbid obesity and ARIANA on hemodialysis TTS schedule was brought in by ambulance to ED after developing SOB for 1 day. The patient is admitted to [facility] telemetry unit for further management of acute hypoxic respiratory failure secondary to sepsis secondary to healthcare associated pneumonia. #MRSA bacteremia #Healthcare associated pneumonia #Complicated UTI Patient presented with SOB, has been on [facility], and was requiring 5 L oxygen via facemask for proper oxygen saturation. Met 3/4 SIRS criteria with temperature 102.9 and white count of 27.4, tachypnea with source of infection as right-sided pneumonia and UTI. End organ damage evidenced by ARIANA. Did not receive 30 cc/kg of crystalloid fluid bolus because of concern for CHF in ED Urine culture negative. -ID recs pending -started vancomycin 11/11 (for two weeks until first negative culture) -source is most likely from TDC--planning to remove this afternoon - Continue cefepime 2 g TID - repeat BC pending - DuoNeb every 6 hourly scheduled - Daily a.m. labs for CBC, CMP and electrolytes - Oxygen as needed #ARIANA-resolved The patient developed ARIANA on last admission on July 2024 and was started on hemodialysis Currently renal function much improved with creatinine of 1.6 and GFR 48, and he is bringing out urine ARIANA likely in setting of sepsis with hypoperfusion. -nephro recs: stop HD, remove TDC, follow up in 2 weeks -continue PO Lasix 20mg daily -INOs -oral hydration - Avoid nephrotoxic drugs - Renally dose medications - Daily a.m. labs for CMP and electrolytes #Hx MARK Patient demand increasing at night with apneic episodes reported by nursing. Further questioning patient stated that he has been previously diagnosed with MARK about 5 years ago. Does not endorse using machine at home. ? Start BiPAP at bedtime ? Patient will need to repeat sleep outpatient #History of insulin-dependent type 2 diabetes, well controlled On admission initial glucose 242. Last A1c 7.1 on 08/10/24 A1c on this admission 6.9 -Held home medications -Bedside blood glucose checks ACHS -Continue 10 units glargine ? 3 units lispro TID -Insulin lispro sliding scale -Carb consistent low diet #Hypomagnesemia Presented with magnesium level of 1.5 - Received 4 g magnesium sulfate - Daily a.m. labs for magnesium, replete as needed #Atrial fibrillation Patient has history of atrial fibrillation - resume diltiazem ER 120 Mg daily - hold rivaroxaban 20 Mg daily until TDC removed - Daily a.m. labs for electrolytes, maintain potassium greater than 4 and magnesium greater than 2 #NSTEMI, likely type II Presented with troponin of 0.046 Appears that patient's baseline troponin is slightly elevated, may be due to end-stage renal disease -delta acheived #CAD #CHF - On aspirin 81 Mg daily #Depression - mirtazapine 45 Mg daily at night -paroxetine 20 Mg daily #Coagulopathy PT 13.7, APTT 21.1 Secondary to sepsis -platelets downtrending: stop heparin and repeat CBC - Monitor daily a.m. labs for PT and PTT #Acute hypoxic respiratory failure-resolved #Lactic acidosis-resolved Health maintenance: Dispo: MRSA bacteremia, remove TDC tomorrow DVT prophylaxis: not indicated Diet: Renal diet Code: Full code The patient's management plan was discussed with my attending physician Dr. Oliveira. Shanae Pandya, PGY-1 Attending Provider Attestation/Addendum I have discussed and was present for the essential components of the history, physical examination, diagnosis, and treatment plan with the resident. I agree with the patient's care as documented by the resident and amended herein by me. Carter Oliveira, . Patient seen and evaluated this AM. No acute events overnight, vital signs stable, patient afebrile, overnight telemetry demonstrating atrial fibrillation however rate controlled. Labs largely unremarkable, creatinine 1.2. Echo pending, repeat blood cultures pending, previous cultures demonstrating MRSA. Will continue cefepime and vancomycin at this time, will likely remove the patient's temporary dialysis line tonight. Infectious ease consulted, appreciate recommendations. Blood cultures blood cultures on 11/08 demonstrating MRSA in both sets, repeat cultures on 11/09 was demonstrating Staphylococcus simulans in 1 set both the anaerobic and aerobic bottles, thus far NGTD Although this document has been carefully reviewed, there may still be some phonetic and other typographical errors. These errors are purely grammatical due to imperfections in the software program and should not be construed in any way to compromise the substance of the patient's medical care during this visit.
[2024-11-12] MEDS: MUPIROCIN OINT 2% 15 GM TUBE TOP ×2 (14:51→21:18)
[2024-11-12] MEDS: INSULIN GLARGINE (Lantus) 5 UNIT/0.05 ML (PER 5 UNITS) 10 UNIT SC (20:40)
[2024-11-12] MEDS: INSULIN LISPRO (AdmeLOG) 1 UNIT/0.01 ML UNIT 3 UNIT SC (20:41)
[2024-11-12] MEDS: PARoxetine HCL 10 MG TABLET 20 MG PO (20:42)
[2024-11-12] MEDS: risperiDONE 1 MG TABLET 3 MG PO (20:42)
[2024-11-12] MEDS: MIRTAZAPINE 15 MG TABLET 45 MG PO (20:42)
[2024-11-13] VITALS (14 sets, daily range): BP systolic 139–148; BP diastolic 72–90; PULSE 78–112; RESP 12–98; TEMP 36.2–36.6; O2SAT 93–100; BMI 42.5
[2024-11-13] MEDS: ALBUTEROL/IPRATROPIUM (Duoneb) RT SOL 3 ML NEBU INH ×4 (01:50→18:55)
[2024-11-13] MEDS: CEFEPIME INJ 2 GM in SODIUM CHLORIDE 0.9% (Popper) 50 ML IV ×3 (06:18→21:29)
[2024-11-13] MEDS: MUPIROCIN OINT 2% 15 GM TUBE TOP ×3 (06:19→21:31)
[2024-11-13 06:26] LABS: Basophils # (Auto) 0.1 Thou/mm3 (0.0-0.2); Basophils % (Auto) 1 % (0-2.5); Eosinophils # (Auto) 0.5 Thou/mm3 (0.0-0.5); Eosinophils % (Auto) 7 % (0-10); Hematocrit 37.3 % (41.0-53.0); Hemoglobin 11.7 g/dL (13.5-16.0); Immature Granulocytes % (Auto) 0 % (0-0); Immature Granulocytes Auto 0.03 Thou/mm3 (0.00-0.00); Lymphocytes # (Auto) 1.6 Thou/mm3 (1.0-4.8); Lymphocytes % (Auto) 22 % (10-50); Mean Corpuscular HGB Conc 31.4 g/dl (31.0-37.0); Mean Corpuscular Hemoglobin 27.1 pg (25.0-35.0); Mean Corpuscular Volume 86 fL (80-100); Monocytes # (Auto) 0.7 Thou/mm3 (0.0-0.8); Monocytes % (Auto) 10 % (0-12); Neutrophils # (Auto) 4.2 Thou/mm3 (1.8-7.7); Neutrophils % (Auto) 60 % (37-80); Nucleated Red Blood Cell % 0 /100 WBC (0); Platelet Count 179 Thou/mm3 (140-440); RDW Standard Deviation 44.1 fL (35.1-43.9); Red Blood Count 4.32 Miln/mm3 (4.50-5.90); White Blood Count 7.1 Thou/mm3 (3.8-10.6)
[2024-11-13 06:42] LABS: Alanine Aminotransferase 15 U/L (10-49); Albumin, Serum 3.8 gm/dL (3.4-4.8); Albumin/Globulin Ratio 1.2 (1.2-2.2); Alkaline Phosphatase 59 U/L (46-116); Anion Gap 5 (7-16); Aspartate Amino Transferase 16 U/L (0-34); BUN/Creatinine Ratio 23 Ratio (12-20); Bilirubin,Total 0.7 mg/dL (0.3-1.2); Blood Urea Nitrogen 25 mg/dL (9-23); Calcium 9.3 mg/dL (8.3-10.6); Calcium (Corrected) 9.5 mg/dL (8.5-10.1); Chloride 106 mMol/L (98-107); Creatinine (Component) 1.1 mg/dL (0.6-1.3); Estimated Creatinine Clearance 105.1 mL/min (>60); Globulin 3.2 gm/dL (2.3-3.5); Glucose 127 mg/dL (74-106); Osmolality,Calculated 285 (275-295); Potassium 4.4 mMol/L (3.4-5.1); Sodium 140 mMol/L (136-145); Vancomycin,Trough 23.8 mcg/mL (5.0-10.0); eGFR > 60 See Note
[2024-11-13] MEDS: SEVELAMER CARBONATE 800 MG TABLET PO (08:50)
[2024-11-13] MEDS: POLYETHYLENE GLYCOL 17 GM PACKET PO (09:20)
[2024-11-13] MEDS: Furosemide 20 MG TABLET PO (09:21)
[2024-11-13] MEDS: ASPIRIN EC 81 MG TABEC PO (09:21)
[2024-11-13] MEDS: DILTIAZEM CD 120 MG CAPCR PO (09:22)
[2024-11-13] MEDS: TAMSULOSIN HCL 0.4 MG CAPSULE PO (09:22)
--- NOTE | 2024-11-13 09:45 | ESPR_ITS ---
Documentation for date of: 11/13/24 Subjective Subjective Interval history: Mr. Bella is a 64-year-old male with MHx of CKD since July 2024, newly on HD TTS, T2DM, HTN, CHF, CAD, COPD, A-fib, seizure disorder, HLD, morbid obesity, presenting with SOB associated with fever, chills, nausea and vomiting and headaches. Complained of urinary symptoms including urgency and frequency. He was admitted for AHRF in setting of sepsis pneumonia. He has been on HD TTS since July 2024 when he developed an ARIANA during admission. Currently labs are significant for sodium 135, CR 1.6 > 1.9, BUN 35, GFR 48 > 39, GLUCOSE 270, A1c 6.9, TB 1.3, troponin 0.046 > 0.066, BNP 239, cholesterol 127, WBC 29.9, Hgb 12.5, PLT 213. Showing positive leukocyte ESTRACE, RBC 5, WBC 9, protein 1+. CXR suspicious for pneumonia in the right base. EKG showing A-fib with HR 61, no acute ST changes. Currently on ZOSYN and VANCOMYCIN. Nephrology consulted for inpatient hemodialysis. PMH: As mentioned above SHX: S/p spinal stenosis surgery of cervical vertebra, appendectomy Family history: Unremarkable Medications: Aspirin 81 Mg, diltiazem 120 Mg ER, Dulcolax, Fleet enema, milk of magnesium as needed for constipation, lidocaine patch, mirtazapine 45 Mg daily at bedtime, paroxetine 20 Mg daily, PEG 17 g as needed for constipation, Zuly- Cruz, sublaminar, risperidone 3 Mg at night, rivaroxaban 20 Mg daily, senna, tamsulosin 0.4 Mg daily, Tradjenta 5 Mg daily. 11/09/2024 examined at bedside. Feels better today. Denies fever, chills, headaches, chest pain, sob, cough, GI or urinary symptoms. Skin around dialysis catheter showing elevated erythema, however nontender, no purulent discharge. Slightly worsening CR 1.6 > 1.9, likely dehydration. Agree with 500 cc fluids. No urine output recorded. Possibly he may come off HD given improvement of renal function since Jul 2023. No plan for HD today. 11/10/2024 examined at bedside. Denies fever, chills, headaches, chest pain, sob, cough, GI or urinary symptoms. LE scaling improving. Renal function improved, sodium 135, BUN 40, creatinine 1.7, EGFR 44. Likely won't need further HD, will DC cath. Follow-up outpatient in 2 weeks. 11/11/2024 examined at bedside. No new symptoms or worsening of symptoms. Denies fever, chills, headaches, chest pain, sob, cough, GI or urinary symptoms. GPC bacteremia, on DOXY and VANC. Dialysis cath removal postponed since he is on XARELTO (on HOLD). Renal function stable, CR 1.2, BUN 35, GFR greater than 60. Had 1+ LE edema bilaterally, with LASIX 20 daily. 11/12/2024 examined at bedside. Denies fever, chills, headaches, chest pain, sob, cough, GI or urinary symptoms. XARELTO on hold for HD cath removal. Renal function normal with CR 1.2, GFR >60, BUN 31. On LASIX 20 mg daily, urine out good, LE edema improved. 11/13/2024 examined at bedside. No new or worsening of symptoms. Pending HD cath removal, likely Friday. Labs stable, including renal panel. CR 1.1, BUN 25, EGFR >60. Urine output adequate with LASIX, no edema on exam. Exam Vital Signs Temp Pulse Resp BP Pulse Ox O2 Del Method O2 Flow Rate 97.1 F 78 17 141/90 H 100 BiPAP 1 11/13/24 04:00 11/13/24 09:22 11/13/24 06:41 11/13/24 09:22 11/13/24 06:41 11/13/24 04:00 11/11/24 13:05 FiO2 30 11/13/24 04:00 Narrative Exam General: Normal appearing adult male, NAD. HEENT: Moist mucous membranes, oropharynx clear Neck: Supple, No masses, No JVD CVS: Irregularly irregular heart rate, No murmurs, rubs or gallops Lungs: CTAB, no W RR. Abd: Soft, NT/ND, +BS, no organomegaly Ext: no lower extremity edema, warm and well perfused Skin: No rash Psych: Appropriate mood and affect Objective Labs 11/14/24 04:39 11/14/24 04:39 Labs: Laboratory Results - last 24 hr 11/13/24 05:38 WBC 7.1 RBC 4.32 L Hgb 11.7 L Hct 37.3 L MCV 86 MCH 27.1 MCHC 31.4 RDW Std Deviation 44.1 H Plt Count 179 Neut % (Auto) 60 Lymph % (Auto) 22 [place] % (Auto) 10 Eos % (Auto) 7 Baso % (Auto) 1 Neut # (Auto) 4.2 Lymph # (Auto) 1.6 [place] # (Auto) 0.7 Eos # (Auto) 0.5 Baso # (Auto) 0.1 Immature Gran # (Auto) 0.03 H Absolute Nucleated RBC 0.00 Immature Gran % 0 Nucleated RBC % 0 Sodium 140 Potassium 4.4 Chloride 106 Carbon Dioxide 29.0 Anion Gap 5 L BUN 25 H Creatinine 1.1 Estim Creat Clear Calc 105.1 eGFR > 60 BUN/Creatinine Ratio 23 H Glucose 127 H Calculated Osmolality 285 Calcium 9.3 Corrected Calcium 9.5 Total Bilirubin 0.7 AST 16 ALT 15 Alkaline Phosphatase 59 Total Protein 7.0 Albumin 3.8 Globulin 3.2 Albumin/Globulin Ratio 1.2 Vancomycin Trough 23.8 H* ABG Interpretation ABG results: 11/09/24 04:38 ABG pH 7.35 ABG pCO2 49 H ABG pO2 124 H ABG HCO3 27 H ABG O2 Saturation 99 H ABG Base Excess 1 Quality Measures Quality Measures sepsis Current suspected stage: ruled out Possible source: pulmonary Blood cultures ordered: yes Antibiotic ordered: No Assessment & Plan Assessment Current Active Medications: Generic Name Dose Route Start Last Admin Trade Name Freq PRN Reason Stop Dose Admin Acetaminophen 650 mg 11/09/24 01:53 Acetaminophen 325 Mg Tablet PO 12/09/24 01:52 Q6H PRN Fever >100.4 Acetaminophen 650 mg 11/09/24 01:53 11/10/24 11:12 Acetaminophen 325 Mg Tablet PO 12/09/24 01:52 650 mg Q6H PRN Administration PAIN SCALE 1-3 (mild Hydrocodone Bitart/Acetaminophen 1 tab 11/09/24 01:53 Hydrocodone/Apap 5/325 Tablet PO 11/14/24 01:52 Q4HR PRN PAIN SCALE 4-6 (Moderate Albuterol/Ipratropium 3 ml 11/09/24 07:00 11/13/24 06:39 Albuterol/Ipratropium (Duoneb) Rt Aspen 3 Ml Nebu INH 12/09/24 06:59 3 ml Q6HRRT ASHWIN Administration Albuterol/Ipratropium 3 ml 11/09/24 14:20 Albuterol/Ipratropium (Duoneb) Rt Aspen 3 Ml Nebu INH 12/09/24 18:59 Q6HRRT PRN WHEEZING Aspirin 81 mg 11/09/24 09:00 11/13/24 09:21 Aspirin Ec 81 Mg Tabec PO 12/09/24 08:59 81 mg QDAY ASHWIN Administration Bisacodyl 10 mg 11/09/24 02:03 Bisacodyl 10 Mg Supp ID 12/09/24 02:14 Q72H PRN constipation Protocol Dextrose 25 ml 11/09/24 01:53 Dextrose 50%-Water Inj 50 Ml Syringe IV 12/09/24 01:52 Q15MIN PRN BG 50-70 responsive npo pt Dextrose 50 ml 11/09/24 10:46 Dextrose 50%-Water Inj 50 Ml Syringe IV 12/09/24 10:45 Q15MIN PRN BG <50 OR BG <70 & pt unresponsive Diltiazem HCl 120 mg 11/09/24 09:00 11/13/24 09:22 Diltiazem Cd 120 Mg Capcr PO 12/09/24 08:59 120 mg QDAY ASHWIN Administration Furosemide 20 mg 11/11/24 09:00 11/13/24 09:21 Furosemide 20 Mg Tablet PO 12/11/24 08:59 20 mg QAM ASHWIN Administration Glucagon 1 mg 11/09/24 10:46 Glucagon Inj 1 Mg Vial IM Q15MIN PRN BG <70, and no IV access Cefepime HCl 2 gm/ Sodium 50 mls @ 100 mls/hr 11/09/24 06:00 11/13/24 06:18 Chloride IV 11/16/24 05:59 100 mls/hr Q8HR ASHWIN Administration Vancomycin/Sodium Chloride 750 mg in 150 mls @ 120 mls/hr 11/13/24 14:00 Vancomycin/Ns 750 Mg Ivpb IV 11/20/24 13:59 Q8HR ASHWIN Insulin Glargine 10 unit 11/09/24 21:00 11/12/24 20:40 Insulin Glargine (Lantus) 5 Unit/0.05 Ml (Per 5 Units) SC 12/09/24 20:59 10 unit HS ASHWIN Administration Insulin Human Lispro 3 unit 11/09/24 11:30 11/13/24 07:30 Insulin Lispro (Admelog) 1 Unit/0.01 Ml Unit SC 12/09/24 11:29 Not Given ACHS ASHWIN Insulin Human Lispro 0 unit 11/09/24 11:30 11/13/24 07:30 Insulin Lispro (Admelog) 1 Unit/0.01 Ml Unit SC 12/09/24 11:29 Not Given ACHS ASHWIN Protocol Magnesium Hydroxide 30 ml 11/09/24 02:03 Milk Of Magnesia Susp 30 Ml Udc PO 12/09/24 02:14 Q72H PRN Constipation Protocol Mirtazapine 45 mg 11/09/24 21:00 11/12/24 20:42 Mirtazapine 15 Mg Tablet PO 12/09/24 20:59 45 mg HS ASHWIN Administration Mupirocin 0 gm 11/10/24 22:00 11/13/24 06:19 Mupirocin Oint 2% 15 Gm Tube TOP 11/17/24 21:59 1 applicatio TID ASHWIN Administration Ondansetron HCl 4 mg 11/09/24 01:53 Ondansetron Inj 2 Mg/Ml Inj 2 Ml IV 12/09/24 01:52 Q6H PRN NAUSEA OR VOMITING Protocol Paroxetine HCl 20 mg 11/09/24 21:00 11/12/24 20:42 Paroxetine Hcl 10 Mg Tablet PO 12/09/24 20:59 20 mg HS ASHWIN Administration Pharmacy Consult 1 each 11/11/24 06:30 Vancomycin Pharmacy To Dose 1 Each Each IV 12/11/24 06:29 PRN PRN PROTOCOL Polyethylene Glycol 17 gm 11/09/24 09:00 11/13/24 09:20 Polyethylene Glycol 17 Gm Packet PO 12/09/24 08:59 17 gm QDAY ASHWIN Administration Risperidone 3 mg 11/09/24 21:00 11/12/24 20:42 Risperidone 1 Mg Tablet PO 12/09/24 20:59 3 mg HS ASHWIN Administration Sennosides 1 tab 11/09/24 02:09 Senna Tablet PO 12/09/24 02:08 QDAY PRN CONSTIPATION Protocol Sevelamer Carbonate 800 mg 11/09/24 08:00 11/13/24 08:50 Sevelamer Carbonate 800 Mg Tablet PO 12/09/24 07:59 800 mg TIDWM ASHWIN Administration Tamsulosin HCl 0.4 mg 11/09/24 09:00 11/13/24 09:22 Tamsulosin Hcl 0.4 Mg Capsule PO 12/09/24 08:59 0.4 mg QDAY ASHWIN Administration Plan 40-year-old male with MHx of CKD since July 2024, newly on HD TTS, T2DM, HTN, CHF, CAD, COPD, A-fib, seizure disorder, HLD, morbid obesity, presenting with SOB associated with fever, chills, nausea and vomiting and headaches. Complained of urinary symptoms including urgency and frequency. [facility] in setting of sepsis pneumonia. Renal function recovered and stable. Dialysis catheter to be discontinued. Added LASIX 20 mg daily for bilateral lower extremity edema. Blood cx grew Staphylococcus simulans, possibly contamanant, afebrile, no leukocytosis. ARIANA (resolved) Previously on HD TTS since Jul 2023. Renal func markedly improved, no need for futher HD. CR 1.1, BUN 25, EGFR >60 Urine output remains good, no LE edema. ? DC dialysis catheter ? Renally dose meds, avoid overdiuresis and NEPHROTOXINS ? Daily CMP ? On LASIX 20 mg daily Acute hypoxic respiratory failure 2/2 Sepsis 2/2 Healthcare associated pneumonia Lactic acidosis Complicated UTI Diabetes mellitus type 2 Hypomagnesemia Atrial fibrillation NSTEMI, likely type II CAD CHF Depression Coagulopathy ? Managed by primary team Thank you for the opportunity to participate in the patient's care. Case was discussed with attending, Dr. Bermeo. Robina Galvan DO PGYI Attending Provider Attestation/Addendum Patient seen and examined with resident physician Dr. Quarles. Note reviewed, agree with findings and recommendations. Patient had been receiving dialysis for the last 3 months for cardiorenal syndrome. Started to make urine. On low-dose Lasix. Clinically euvolemic. Creatinine markedly improved to 1.1. Hold dialysis. Admitted with low blood pressure-from catheter related bacteremia. Blood cultures came back positive for MRSA. Will DC dialysis catheter. Xarelto on hold. Needs to be removed by IR as it is a tunneled catheter. Plan of care discussed with primary team.
--- NOTE | 2024-11-13 13:40 | ESPR_ITS ---
Documentation for date of: 11/13/24 Subjective Subjective Interval history: Patient examined at bedside. No events overnight, no major complaints. Patient remains in A-fib with rate 80?90. CBC CMP unremarkable, sugars well controlled. Receiving IV vancomycin for treatment of MRSA bacteremia and cefepime for HAP. Planning to remove TDC on Friday and placement of PICC pending culture results. Echo is pending. ID consulted and recommendations pending. Continue vancomycin and cefepime. Exam Vital Signs Temp Pulse Resp BP Pulse Ox O2 Del Method O2 Flow Rate 97.6 F 82 18 141/90 H 100 Room Air 1 11/13/24 08:00 11/13/24 12:26 11/13/24 12:26 11/13/24 09:22 11/13/24 12:26 11/13/24 08:00 11/11/24 13:05 FiO2 30 11/13/24 04:00 Narrative Exam General: Elderly male, obese, no acute distress, cooperative HEENT: NCAT, No JVD noted. Mucosa moist. Pupils are equal and reactive to light bilaterally Cardiovascular: Normal S1 and S2. Regular rate and rhythm. Respiratory: Lungs are clear to auscultation bilaterally. No wheezing or crackles heard. Abdomen: Soft, nontender, not distended, normal bowel sounds. Skin: Warm to touch, dry, lower extremity venous stasis discoloration, TDC Musculoskeletal: No gross injuries. Able to move all 4 extremities. No pitting edema. Neuro: Alert and oriented x3. No focal neuro deficits. Psych: Normal affect and mood Objective Labs 11/13/24 05:38 11/13/24 05:38 Labs: Laboratory Results - last 24 hr 11/13/24 05:38 WBC 7.1 RBC 4.32 L Hgb 11.7 L Hct 37.3 L MCV 86 MCH 27.1 MCHC 31.4 RDW Std Deviation 44.1 H Plt Count 179 Neut % (Auto) 60 Lymph % (Auto) 22 [place] % (Auto) 10 Eos % (Auto) 7 Baso % (Auto) 1 Neut # (Auto) 4.2 Lymph # (Auto) 1.6 [place] # (Auto) 0.7 Eos # (Auto) 0.5 Baso # (Auto) 0.1 Immature Gran # (Auto) 0.03 H Absolute Nucleated RBC 0.00 Immature Gran % 0 Nucleated RBC % 0 Sodium 140 Potassium 4.4 Chloride 106 Carbon Dioxide 29.0 Anion Gap 5 L BUN 25 H Creatinine 1.1 Estim Creat Clear Calc 105.1 eGFR > 60 BUN/Creatinine Ratio 23 H Glucose 127 H Calculated Osmolality 285 Calcium 9.3 Corrected Calcium 9.5 Total Bilirubin 0.7 AST 16 ALT 15 Alkaline Phosphatase 59 Total Protein 7.0 Albumin 3.8 Globulin 3.2 Albumin/Globulin Ratio 1.2 Vancomycin Trough 23.8 H* ABG Interpretation ABG results: 11/09/24 04:38 ABG pH 7.35 ABG pCO2 49 H ABG pO2 124 H ABG HCO3 27 H ABG O2 Saturation 99 H ABG Base Excess 1 Quality Measures Quality Measures sepsis Current suspected stage: ruled out Possible source: pulmonary Blood cultures ordered: yes Antibiotic ordered: Yes Assessment & Plan Assessment Current Active Medications: Generic Name Dose Route Start Last Admin Trade Name Freq PRN Reason Stop Dose Admin Acetaminophen 650 mg 11/09/24 01:53 Acetaminophen 325 Mg Tablet PO 12/09/24 01:52 Q6H PRN Fever >100.4 Acetaminophen 650 mg 11/09/24 01:53 11/10/24 11:12 Acetaminophen 325 Mg Tablet PO 12/09/24 01:52 650 mg Q6H PRN Administration PAIN SCALE 1-3 (mild Hydrocodone Bitart/Acetaminophen 1 tab 11/09/24 01:53 Hydrocodone/Apap 5/325 Tablet PO 11/14/24 01:52 Q4HR PRN PAIN SCALE 4-6 (Moderate Albuterol/Ipratropium 3 ml 11/09/24 07:00 11/13/24 12:24 Albuterol/Ipratropium (Duoneb) Rt Aspen 3 Ml Nebu INH 12/09/24 06:59 3 ml Q6HRRT ASHWIN Administration Albuterol/Ipratropium 3 ml 11/09/24 14:20 Albuterol/Ipratropium (Duoneb) Rt Aspen 3 Ml Nebu INH 12/09/24 18:59 Q6HRRT PRN WHEEZING Aspirin 81 mg 11/09/24 09:00 11/13/24 09:21 Aspirin Ec 81 Mg Tabec PO 12/09/24 08:59 81 mg QDAY ASHWIN Administration Bisacodyl 10 mg 11/09/24 02:03 Bisacodyl 10 Mg Supp MN 12/09/24 02:14 Q72H PRN constipation Protocol Dextrose 25 ml 11/09/24 01:53 Dextrose 50%-Water Inj 50 Ml Syringe IV 12/09/24 01:52 Q15MIN PRN BG 50-70 responsive npo pt Dextrose 50 ml 11/09/24 10:46 Dextrose 50%-Water Inj 50 Ml Syringe IV 12/09/24 10:45 Q15MIN PRN BG <50 OR BG <70 & pt unresponsive Diltiazem HCl 120 mg 11/09/24 09:00 11/13/24 09:22 Diltiazem Cd 120 Mg Capcr PO 12/09/24 08:59 120 mg QDAY ASHWIN Administration Furosemide 20 mg 11/11/24 09:00 11/13/24 09:21 Furosemide 20 Mg Tablet PO 12/11/24 08:59 20 mg QAM ASHWIN Administration Glucagon 1 mg 11/09/24 10:46 Glucagon Inj 1 Mg Vial IM Q15MIN PRN BG <70, and no IV access Cefepime HCl 2 gm/ Sodium 50 mls @ 100 mls/hr 11/09/24 06:00 11/13/24 06:18 Chloride IV 11/16/24 05:59 100 mls/hr Q8HR ASHWIN Administration Insulin Glargine 10 unit 11/09/24 21:00 11/12/24 20:40 Insulin Glargine (Lantus) 5 Unit/0.05 Ml (Per 5 Units) SC 12/09/24 20:59 10 unit HS ASHWIN Administration Insulin Human Lispro 3 unit 11/09/24 11:30 11/13/24 07:30 Insulin Lispro (Admelog) 1 Unit/0.01 Ml Unit SC 12/09/24 11:29 Not Given ACHS ASHWIN Insulin Human Lispro 0 unit 11/09/24 11:30 11/13/24 07:30 Insulin Lispro (Admelog) 1 Unit/0.01 Ml Unit SC 12/09/24 11:29 Not Given ACHS ASHWIN Protocol Magnesium Hydroxide 30 ml 11/09/24 02:03 Milk Of Magnesia Susp 30 Ml Udc PO 12/09/24 02:14 Q72H PRN Constipation Protocol Mirtazapine 45 mg 11/09/24 21:00 11/12/24 20:42 Mirtazapine 15 Mg Tablet PO 12/09/24 20:59 45 mg HS ASHWIN Administration Mupirocin 0 gm 11/10/24 22:00 11/13/24 06:19 Mupirocin Oint 2% 15 Gm Tube TOP 11/17/24 21:59 1 applicatio TID ASHWIN Administration Ondansetron HCl 4 mg 11/09/24 01:53 Ondansetron Inj 2 Mg/Ml Inj 2 Ml IV 12/09/24 01:52 Q6H PRN NAUSEA OR VOMITING Protocol Paroxetine HCl 20 mg 11/09/24 21:00 11/12/24 20:42 Paroxetine Hcl 10 Mg Tablet PO 12/09/24 20:59 20 mg HS ASHWIN Administration Pharmacy Consult 1 each 11/11/24 06:30 Vancomycin Pharmacy To Dose 1 Each Each IV 12/11/24 06:29 PRN PRN PROTOCOL Polyethylene Glycol 17 gm 11/09/24 09:00 11/13/24 09:20 Polyethylene Glycol 17 Gm Packet PO 12/09/24 08:59 17 gm QDAY ASHWIN Administration Risperidone 3 mg 11/09/24 21:00 11/12/24 20:42 Risperidone 1 Mg Tablet PO 12/09/24 20:59 3 mg HS ASHWIN Administration Sennosides 1 tab 11/09/24 02:09 Senna Tablet PO 12/09/24 02:08 QDAY PRN CONSTIPATION Protocol Tamsulosin HCl 0.4 mg 11/09/24 09:00 11/13/24 09:22 Tamsulosin Hcl 0.4 Mg Capsule PO 12/09/24 08:59 0.4 mg QDAY ASHWIN Administration Plan Andrew Bella is 64-year-old male with past medical history significant for hypertension, diabetes mellitus type 2, CHF, CAD, COPD, A-fib, seizure disorder, hyperlipidemia, morbid obesity and ARIANA on hemodialysis TTS schedule was brought in by ambulance to ED after developing SOB for 1 day. The patient is admitted to [facility] telemetry unit for further management of acute hypoxic respiratory failure secondary to sepsis secondary to healthcare associated pneumonia. #MRSA bacteremia #Healthcare associated pneumonia #Complicated UTI Patient presented with SOB, has been on [facility], and was requiring 5 L oxygen via facemask for proper oxygen saturation. Met 3/4 SIRS criteria with temperature 102.9 and white count of 27.4, tachypnea with source of infection as right-sided pneumonia and UTI. End organ damage evidenced by ARIANA. Did not receive 30 cc/kg of crystalloid fluid bolus because of concern for CHF in ED Urine culture negative. Blood cultures blood cultures on 11/08 grew MRSA in both sets Repeat cultures on 11/09 was demonstrating Staphylococcus simulans, -ID recs pending -started vancomycin 11/11 (for two weeks until first negative culture) -source is most likely from TDC--planning to remove Friday - Continue cefepime 2 g TID - repeat BC pending - DuoNeb every 6 hourly scheduled - Daily a.m. labs for CBC, CMP and electrolytes - Oxygen as needed #ARIANA-resolved The patient developed ARIANA on last admission on July 2024 and was started on hemodialysis Currently renal function much improved with creatinine of 1.6 and GFR 48, and he is bringing out urine ARIANA likely in setting of sepsis with hypoperfusion. -nephro recs: stop HD, remove TDC, follow up in 2 weeks -continue PO Lasix 20mg daily -INOs -oral hydration - Avoid nephrotoxic drugs - Renally dose medications - Daily a.m. labs for CMP and electrolytes #Hx MARK Patient demand increasing at night with apneic episodes reported by nursing. Further questioning patient stated that he has been previously diagnosed with MARK about 5 years ago. Does not endorse using machine at home. ? Start BiPAP at bedtime ? Patient will need to repeat sleep outpatient #History of insulin-dependent type 2 diabetes, well controlled On admission initial glucose 242. Last A1c 7.1 on 08/10/24 A1c on this admission 6.9 -Held home medications -Bedside blood glucose checks ACHS -Continue 10 units glargine ? 3 units lispro TID -Insulin lispro sliding scale -Carb consistent low diet #Hypomagnesemia Presented with magnesium level of 1.5 - Received 4 g magnesium sulfate - Daily a.m. labs for magnesium, replete as needed #Atrial fibrillation Patient has history of atrial fibrillation - resume diltiazem ER 120 Mg daily - hold rivaroxaban 20 Mg daily until TDC removed - Daily a.m. labs for electrolytes, maintain potassium greater than 4 and magnesium greater than 2 #NSTEMI, likely type II Presented with troponin of 0.046 Appears that patient's baseline troponin is slightly elevated, may be due to end-stage renal disease -delta acheived #CAD #CHF - On aspirin 81 Mg daily #Depression - mirtazapine 45 Mg daily at night -paroxetine 20 Mg daily #Coagulopathy PT 13.7, APTT 21.1 Secondary to sepsis -platelets downtrending: stop heparin and repeat CBC - Monitor daily a.m. labs for PT and PTT #Acute hypoxic respiratory failure-resolved #Lactic acidosis-resolved Health maintenance: Dispo: MRSA bacteremia, remove TDC Friday DVT prophylaxis: not indicated Diet: Renal diet Code: Full code The patient's management plan was discussed with my attending physician Dr. Oliveira. Shanae Pandya, PGY-1 Attending Provider Attestation/Addendum I have discussed and was present for the essential components of the history, physical examination, diagnosis, and treatment plan with the resident. I agree with the patient's care as documented by the resident and amended herein by me. Carter Oliveira DO. Patient seen and evaluated this AM. No acute events overnight, vital signs stable, patient afebrile, patient has no subjective complaints. Blood cultures -06/13, echo is still pending. Patient will need his tunnel catheter use for dialysis removed however could not be performed as of yet due to needing adequate washout per interventional radiology. Will likely be performed on Friday, a PICC line can then be placed and the patient can be sent with IV antibiotics, duration has yet to be determined, we will see what the echo demonstrates. For now, we will continue on vancomycin and cefepime, the patient is much improved. Will continue to monitor closely [place]. Although this document has been carefully reviewed, there may still be some phonetic and other typographical errors. These errors are purely grammatical due to imperfections in the software program and should not be construed in any way to compromise the substance of the patient's medical care during this visit.
[2024-11-13] MEDS: INSULIN GLARGINE (Lantus) 5 UNIT/0.05 ML (PER 5 UNITS) 10 UNIT SC (20:35)
[2024-11-13] MEDS: PARoxetine HCL 10 MG TABLET 20 MG PO (20:38)
[2024-11-13] MEDS: MIRTAZAPINE 15 MG TABLET 45 MG PO (20:38)
[2024-11-13] MEDS: risperiDONE 1 MG TABLET 3 MG PO (20:38)
[2024-11-14] VITALS (13 sets, daily range): BP systolic 135–149; BP diastolic 77–89; PULSE 71–103; RESP 12–99; TEMP 36.2–36.3; O2SAT 95–100; BMI 42.7
[2024-11-14] MEDS: ALBUTEROL/IPRATROPIUM (Duoneb) RT SOL 3 ML NEBU INH ×4 (01:09→19:33)
[2024-11-14 05:34] LABS: Basophils # (Auto) 0.1 Thou/mm3 (0.0-0.2); Basophils % (Auto) 1 % (0-2.5); Eosinophils # (Auto) 0.4 Thou/mm3 (0.0-0.5); Eosinophils % (Auto) 6 % (0-10); Hemoglobin 11.3 g/dL (13.5-16.0); Immature Granulocytes % (Auto) 1 % (0-0); Immature Granulocytes Auto 0.04 Thou/mm3 (0.00-0.00); Lymphocytes # (Auto) 1.9 Thou/mm3 (1.0-4.8); Lymphocytes % (Auto) 24 % (10-50); Mean Corpuscular HGB Conc 31.4 g/dl (31.0-37.0); Mean Corpuscular Volume 86 fL (80-100); Monocytes # (Auto) 0.7 Thou/mm3 (0.0-0.8); Monocytes % (Auto) 9 % (0-12); Neutrophils # (Auto) 4.8 Thou/mm3 (1.8-7.7); Neutrophils % (Auto) 61 % (37-80); Nucleated Red Blood Cell % 0 /100 WBC (0); Platelet Count 208 Thou/mm3 (140-440); RDW Standard Deviation 43.6 fL (35.1-43.9); Red Blood Count 4.18 Miln/mm3 (4.50-5.90); White Blood Count 7.9 Thou/mm3 (3.8-10.6)
[2024-11-14] MEDS: CEFEPIME INJ 2 GM in SODIUM CHLORIDE 0.9% (Popper) 50 ML IV ×3 (05:36→21:42)
[2024-11-14] MEDS: MUPIROCIN OINT 2% 15 GM TUBE TOP ×3 (05:36→21:43)
[2024-11-14 06:27] LABS: Alanine Aminotransferase 18 U/L (10-49); Albumin, Serum 3.7 gm/dL (3.4-4.8); Albumin/Globulin Ratio 1.2 (1.2-2.2); Alkaline Phosphatase 63 U/L (46-116); Anion Gap 5 (7-16); Aspartate Amino Transferase 19 U/L (0-34); BUN/Creatinine Ratio 23 Ratio (12-20); Bilirubin,Total 0.5 mg/dL (0.3-1.2); Blood Urea Nitrogen 27 mg/dL (9-23); Calcium 9.5 mg/dL (8.3-10.6); Calcium (Corrected) 9.7 mg/dL (8.5-10.1); Carbon Dioxide 30.5 mMol/L (20.0-31.0); Chloride 105 mMol/L (98-107); Creatinine (Component) 1.2 mg/dL (0.6-1.3); Estimated Creatinine Clearance 96.5 mL/min (>60); Globulin 3.2 gm/dL (2.3-3.5); Glucose 135 mg/dL (74-106); Osmolality,Calculated 286 (275-295); Potassium 4.5 mMol/L (3.4-5.1); Sodium 140 mMol/L (136-145); Total Protein 6.9 gm/dL (5.7-8.2); eGFR > 60 See Note
[2024-11-14] MEDS: TAMSULOSIN HCL 0.4 MG CAPSULE PO (08:34)
[2024-11-14] MEDS: Furosemide 20 MG TABLET PO (08:34)
[2024-11-14] MEDS: ASPIRIN EC 81 MG TABEC PO (08:34)
[2024-11-14] MEDS: DILTIAZEM CD 120 MG CAPCR PO (08:34)
[2024-11-14] MEDS: POLYETHYLENE GLYCOL 17 GM PACKET PO (08:35)
--- NOTE | 2024-11-14 09:36 | PD.NEPHPROG ---
Documentation for date of: 11/14/24 Subjective Subjective Interval history: Mr. Bella is a 64-year-old male with MHx of CKD since July 2024, newly on HD TTS, T2DM, HTN, CHF, CAD, COPD, A-fib, seizure disorder, HLD, morbid obesity, presenting with SOB associated with fever, chills, nausea and vomiting and headaches. Complained of urinary symptoms including urgency and frequency. He was admitted for AHRF in setting of sepsis pneumonia. He has been on HD TTS since July 2024 when he developed an ARIANA during admission. Currently labs are significant for sodium 135, CR 1.6 > 1.9, BUN 35, GFR 48 > 39, GLUCOSE 270, A1c 6.9, TB 1.3, troponin 0.046 > 0.066, BNP 239, cholesterol 127, WBC 29.9, Hgb 12.5, PLT 213. Showing positive leukocyte ESTRACE, RBC 5, WBC 9, protein 1+. CXR suspicious for pneumonia in the right base. EKG showing A-fib with HR 61, no acute ST changes. 11/12/2024 examined at bedside. Denies fever, chills, headaches, chest pain, sob, cough, GI or urinary symptoms. XARELTO on hold for HD cath removal. Renal function normal with CR 1.2, GFR >60, BUN 31. On LASIX 20 mg daily, urine out good, LE edema improved. 11/13/2024 examined at bedside. No new or worsening of symptoms. Pending HD cath removal, likely Friday. Labs stable, including renal panel. CR 1.1, BUN 25, EGFR >60. Urine output adequate with LASIX, no edema on exam. 11/14/2024 patient currently seen in telemetry. On MRSA precautions. Pending dialysis catheter removal. Patient came off dialysis and is feeling much better. Currently on low-dose diuretics. Blood sugar 98, vital signs stable. WBC 7.9, hemoglobin 11.3. Sodium 140, potassium 4.5, creatinine 1.2, LFTs normal. Review of Systems Review of Systems Narrative Review of Systems: CONSTITUTIONAL: Patient denies any fever, chills. Complaining of fatigue HEENT: Denies any visual disturbances or hearing problems. CARDIOVASCULAR: Patient denies any chest pain, shortness of breath. c/o swelling in the lower extremities. PULMONARY: Patient denies any shortness of breath, cough. GASTROINTESTINAL: Patient denies any abdominal pain, constipation, nausea, vomiting, diarrhea. GENITOURINARY: Patient denies any urinary symptoms of burning or frequency or hematuria, denies any form in the urine. SKIN: Denies any rash. MUSCULOSKELETAL: Complaining of gait imbalance NEUROLOGICAL: Denies any neurological problems of strokes, seizures or confusion. Denies any memory problems. PSYCHIATRIC: Denies any depression or anxiety. LYMPHATICS : No lymphadenopathy Exam Vital Signs Temp Pulse Resp BP Pulse Ox O2 Del Method O2 Flow Rate 36.2 C 80 14 137/77 H 98 Room Air 1 11/14/24 08:00 11/14/24 08:34 11/14/24 08:00 11/14/24 08:34 11/14/24 08:00 11/14/24 08:00 11/11/24 13:05 FiO2 30 11/14/24 03:20 Narrative Exam GENERAL APPEARANCE: Patient seems to be comfortable, adequately hydrated and nourished. HEENT: EOMI, PERRLA NECK: Neck supple, no JVD or bruit CARDIOVASCULAR: Heart regular, no murmurs LUNGS/CHEST: Chest clear to auscultation. No rales, rhonchi, wheezing ABDOMEN: Soft, nontender, nondistended. No masses. Normal bowel sounds. EXTREMITIES: No edema, clubbing or cyanosis. SKIN stasis dermatitis noted in the lower extremities. Patient noted to have right IJ dialysis catheter MUSCULOSKELETAL: In bed PSYCHIATRIC: Normal mood, affect LYMPHATICS: No lymphadenopathy noted NEUROLOGICAL : No neurological deficits Objective Labs 11/14/24 04:39 11/14/24 04:39 Labs: Laboratory Results - last 24 hr 11/14/24 04:39 WBC 7.9 RBC 4.18 L Hgb 11.3 L Hct 36.0 L MCV 86 MCH 27.0 MCHC 31.4 RDW Std Deviation 43.6 Plt Count 208 Neut % (Auto) 61 Lymph % (Auto) 24 [place] % (Auto) 9 Eos % (Auto) 6 Baso % (Auto) 1 Neut # (Auto) 4.8 Lymph # (Auto) 1.9 [place] # (Auto) 0.7 Eos # (Auto) 0.4 Baso # (Auto) 0.1 Immature Gran # (Auto) 0.04 H Absolute Nucleated RBC 0.00 Immature Gran % 1 H Nucleated RBC % 0 Sodium 140 Potassium 4.5 Chloride 105 Carbon Dioxide 30.5 Anion Gap 5 L BUN 27 H Creatinine 1.2 Estim Creat Clear Calc 96.5 eGFR > 60 BUN/Creatinine Ratio 23 H Glucose 135 H Calculated Osmolality 286 Calcium 9.5 Corrected Calcium 9.7 Total Bilirubin 0.5 AST 19 ALT 18 Alkaline Phosphatase 63 Total Protein 6.9 Albumin 3.7 Globulin 3.2 Albumin/Globulin Ratio 1.2 ABG Interpretation ABG results: 11/09/24 04:38 ABG pH 7.35 ABG pCO2 49 H ABG pO2 124 H ABG HCO3 27 H ABG O2 Saturation 99 H ABG Base Excess 1 Assessment & Plan Additional Assessment & Plan Additional Plan: ARIANA -markedly improved. Patient came off dialysis. Awaiting catheter removal Sepsis resolved- Catheter related MRSA bacteremia. Pending dialysis catheter removal Complicated UTI Diabetes mellitus type 2 Hypomagnesemia Atrial fibrillation-anticoagulation on hold NSTEMI, likely type II-asymptomatic CAD CHF Depression Coagulopathy
--- NOTE | 2024-11-14 15:52 | PD.RESPRO ---
Documentation for date of: 11/14/24 Subjective Subjective Interval history: Patient examined at bedside. No events overnight, no major complaints. Patient remains in A-fib with rate 80?90. CBC CMP unremarkable, sugars well controlled. Receiving IV vancomycin for treatment of MRSA bacteremia and cefepime for HAP. ECHO: Poor quality images. No clear valvular vegetations. Consider REECE if high clinical index of suspicion. Normal LV size and function. Estimated EF 55-60%. Mild LVH. Diastolic dysfunction present but cannot be graded because of the A-fib. Moderately dilated RV. Normal RV function. Elevated RVSP. Mild biatrial dilatation. Right greater than left. Mild MR. Trace TR ID consulted and recommendations pending. Planning to remove TDC on Friday by IR and placement of PICC. Follow Final Cultures Exam Vital Signs Temp Pulse Resp BP Pulse Ox O2 Del Method O2 Flow Rate 97.4 F 76 18 149/82 H 99 Room Air 1 11/14/24 12:00 11/14/24 12:22 11/14/24 12:22 11/14/24 12:00 11/14/24 12:11/14/24 12:00 11/14/24 12:00 FiO2 30 11/14/24 12:00 Narrative Exam General: Elderly male, obese, no acute distress, cooperative HEENT: NCAT, No JVD noted. Mucosa moist. Pupils are equal and reactive to light bilaterally Cardiovascular: Normal S1 and S2. Regular rate and rhythm. Respiratory: Lungs are clear to auscultation bilaterally. No wheezing or crackles heard. Abdomen: Soft, nontender, not distended, normal bowel sounds. Skin: Warm to touch, dry, lower extremity venous stasis discoloration, TDC Musculoskeletal: No gross injuries. Able to move all 4 extremities. No pitting edema. Neuro: Alert and oriented x3. No focal neuro deficits. Psych: Normal affect and mood Objective Labs 11/15/24 05:32 11/15/24 05:32 Labs: Laboratory Results - last 24 hr 11/14/24 04:39 WBC 7.9 RBC 4.18 L Hgb 11.3 L Hct 36.0 L MCV 86 MCH 27.0 MCHC 31.4 RDW Std Deviation 43.6 Plt Count 208 Neut % (Auto) 61 Lymph % (Auto) 24 [place] % (Auto) 9 Eos % (Auto) 6 Baso % (Auto) 1 Neut # (Auto) 4.8 Lymph # (Auto) 1.9 [place] # (Auto) 0.7 Eos # (Auto) 0.4 Baso # (Auto) 0.1 Immature Gran # (Auto) 0.04 H Absolute Nucleated RBC 0.00 Immature Gran % 1 H Nucleated RBC % 0 Sodium 140 Potassium 4.5 Chloride 105 Carbon Dioxide 30.5 Anion Gap 5 L BUN 27 H Creatinine 1.2 Estim Creat Clear Calc 96.5 eGFR > 60 BUN/Creatinine Ratio 23 H Glucose 135 H Calculated Osmolality 286 Calcium 9.5 Corrected Calcium 9.7 Total Bilirubin 0.5 AST 19 ALT 18 Alkaline Phosphatase 63 Total Protein 6.9 Albumin 3.7 Globulin 3.2 Albumin/Globulin Ratio 1.2 ABG Interpretation ABG results: 11/09/24 04:38 ABG pH 7.35 ABG pCO2 49 H ABG pO2 124 H ABG HCO3 27 H ABG O2 Saturation 99 H ABG Base Excess 1 Quality Measures Quality Measures sepsis Current suspected stage: ruled out Possible source: pulmonary Blood cultures ordered: yes Antibiotic ordered: Yes Assessment & Plan Assessment Current Active Medications: Generic Name Dose Route Start Last Admin Trade Name Freq PRN Reason Stop Dose Admin Acetaminophen 650 mg 11/09/24 01:53 Acetaminophen 325 Mg Tablet PO 12/09/24 01:52 Q6H PRN Fever >100.4 Acetaminophen 650 mg 11/09/24 01:53 11/10/24 11:12 Acetaminophen 325 Mg Tablet PO 12/09/24 01:52 650 mg Q6H PRN Administration PAIN SCALE 1-3 (mild Albuterol/Ipratropium 3 ml 11/09/24 07:00 11/14/24 12:20 Albuterol/Ipratropium (Duoneb) Rt Aspen 3 Ml Nebu INH 12/09/24 06:59 3 ml Q6HRRT ASHWIN Administration Albuterol/Ipratropium 3 ml 11/09/24 14:20 Albuterol/Ipratropium (Duoneb) Rt Aspen 3 Ml Nebu INH 12/09/24 18:59 Q6HRRT PRN WHEEZING Aspirin 81 mg 11/09/24 09:00 11/14/24 08:34 Aspirin Ec 81 Mg Tabec PO 12/09/24 08:59 81 mg QDAY ASHWIN Administration Bisacodyl 10 mg 11/09/24 02:03 Bisacodyl 10 Mg Supp TN 12/09/24 02:14 Q72H PRN constipation Protocol Dextrose 25 ml 11/09/24 01:53 Dextrose 50%-Water Inj 50 Ml Syringe IV 12/09/24 01:52 Q15MIN PRN BG 50-70 responsive npo pt Dextrose 50 ml 11/09/24 10:46 Dextrose 50%-Water Inj 50 Ml Syringe IV 12/09/24 10:45 Q15MIN PRN BG <50 OR BG <70 & pt unresponsive Diltiazem HCl 120 mg 11/09/24 09:00 11/14/24 08:34 Diltiazem Cd 120 Mg Capcr PO 12/09/24 08:59 120 mg QDAY ASHWIN Administration Furosemide 20 mg 11/11/24 09:00 11/14/24 08:34 Furosemide 20 Mg Tablet PO 12/11/24 08:59 20 mg QAM ASHWIN Administration Glucagon 1 mg 11/09/24 10:46 Glucagon Inj 1 Mg Vial IM Q15MIN PRN BG <70, and no IV access Cefepime HCl 2 gm/ Sodium 50 mls @ 100 mls/hr 11/09/24 06:00 11/14/24 13:52 Chloride IV 11/16/24 05:59 100 mls/hr Q8HR ASHWIN Administration Insulin Glargine 10 unit 11/09/24 21:00 11/13/24 20:35 Insulin Glargine (Lantus) 5 Unit/0.05 Ml (Per 5 Units) SC 12/09/24 20:59 10 unit HS ASHWIN Administration Insulin Human Lispro 3 unit 11/09/24 11:30 11/14/24 13:58 Insulin Lispro (Admelog) 1 Unit/0.01 Ml Unit SC 12/09/24 11:29 Not Given ACHS ASHWIN Insulin Human Lispro 0 unit 11/09/24 11:30 11/14/24 13:58 Insulin Lispro (Admelog) 1 Unit/0.01 Ml Unit SC 12/09/24 11:29 Not Given ACHS ASHWIN Protocol Magnesium Hydroxide 30 ml 11/09/24 02:03 Milk Of Magnesia Susp 30 Ml Udc PO 12/09/24 02:14 Q72H PRN Constipation Protocol Mirtazapine 45 mg 11/09/24 21:00 11/13/24 20:38 Mirtazapine 15 Mg Tablet PO 12/09/24 20:59 45 mg HS ASHWIN Administration Mupirocin 0 gm 11/10/24 22:00 11/14/24 13:59 Mupirocin Oint 2% 15 Gm Tube TOP 11/17/24 21:59 1 applicatio TID ASHWIN Administration Ondansetron HCl 4 mg 11/09/24 01:53 Ondansetron Inj 2 Mg/Ml Inj 2 Ml IV 12/09/24 01:52 Q6H PRN NAUSEA OR VOMITING Protocol Paroxetine HCl 20 mg 11/09/24 21:00 11/13/24 20:38 Paroxetine Hcl 10 Mg Tablet PO 12/09/24 20:59 20 mg HS ASHWIN Administration Polyethylene Glycol 17 gm 11/09/24 09:00 11/14/24 08:35 Polyethylene Glycol 17 Gm Packet PO 12/09/24 08:59 17 gm QDAY ASHWIN Administration Risperidone 3 mg 11/09/24 21:00 11/13/24 20:38 Risperidone 1 Mg Tablet PO 12/09/24 20:59 3 mg HS ASHWIN Administration Sennosides 1 tab 11/09/24 02:09 Senna Tablet PO 12/09/24 02:08 QDAY PRN CONSTIPATION Protocol Tamsulosin HCl 0.4 mg 11/09/24 09:00 11/14/24 08:34 Tamsulosin Hcl 0.4 Mg Capsule PO 12/09/24 08:59 0.4 mg QDAY ASHWIN Administration Plan Assessment and Plan: Summary: Andrew Bella is 64-year-old male with past medical history significant for hypertension, diabetes mellitus type 2, CHF, CAD, COPD, A-fib, seizure disorder, hyperlipidemia, morbid obesity and ARIANA on hemodialysis TTS schedule was brought in by ambulance to ED after developing SOB for 1 day. The patient is admitted to [facility] telemetry unit for further management of acute hypoxic respiratory failure secondary to sepsis secondary to healthcare associated pneumonia. #MRSA bacteremia #Healthcare associated pneumonia Patient presented with SOB, has been on [facility], and was requiring 5 L oxygen via facemask for proper oxygen saturation. Met 3/4 SIRS criteria with temperature 102.9 and white count of 27.4, tachypnea with source of infection as right-sided pneumonia and UTI. End organ damage evidenced by ARIANA. Did not receive 30 cc/kg of crystalloid fluid bolus because of concern for CHF in ED Urine culture negative. Blood cultures blood cultures on 11/08 grew MRSA in both sets Repeat cultures on 11/09 was demonstrating Staphylococcus simulans, Plan: -ID recs pending -Started vancomycin 11/11 (for two weeks until first negative culture) -Source is most likely from TDC--planning to remove Friday with interventional radiology -Continue cefepime 2 g TID -Repeat BC pending -DuoNeb every 6 hourly scheduled -Daily a.m. labs for CBC, CMP and electrolytes -Oxygen as needed - TTE inconclusive, poor images, patient has not had any fevers, repeat blood cultures are negative as of now, will follow final blood culture. #ARIANA-resolved The patient developed ARIANA on last admission on July 2024 and was started on hemodialysis Currently renal function much improved with creatinine of 1.6 and GFR 48, and he is bringing out urine ARIANA likely in setting of sepsis with hypoperfusion. -Nephro recs: stop HD, remove TDC, follow up in 2 weeks -Continue PO Lasix 20mg daily -INOs -oral hydration - Avoid nephrotoxic drugs - Renally dose medications - Daily a.m. labs for CMP and electrolytes #Hx MARK Patient demand increasing at night with apneic episodes reported by nursing. Further questioning patient stated that he has been previously diagnosed with MARK about 5 years ago. Does not endorse using machine at home. ? Start BiPAP at bedtime ? Patient will need to repeat sleep outpatient #History of insulin-dependent type 2 diabetes, well controlled On admission initial glucose 242. Last A1c 7.1 on 08/10/24 A1c on this admission 6.9 -Held home medications -Bedside blood glucose checks ACHS -Continue 10 units glargine ?3 units lispro TID -Insulin lispro sliding scale -Carb consistent low diet #Hypomagnesemia Presented with magnesium level of 1.5 - Received 4 g magnesium sulfate - Daily a.m. labs for magnesium, replete as needed #Atrial fibrillation Patient has history of atrial fibrillation - resume diltiazem ER 120 Mg daily - hold rivaroxaban 20 Mg daily until TDC removed till Friday - Daily a.m. labs for electrolytes, maintain potassium greater than 4 and magnesium greater than 2 #NSTEMI, likely type II Presented with troponin of 0.046 Appears that patient's baseline troponin is slightly elevated, may be due to end-stage renal disease -delta acheived #Coronary artery disease by history #CHF with preserved ejection fraction, EF 55 to 60%, diastolic heart failure ECHO: Poor quality images. No clear valvular vegetations. Consider REECE if high clinical index of suspicion. Normal LV size and function. Estimated EF 55-60%. Mild LVH. Diastolic dysfunction present but cannot be graded because of the A-fib. Moderately dilated RV. Normal RV function. Elevated RVSP. Mild biatrial dilatation. Right greater than left. Mild MR. Trace TR - On aspirin 81 Mg daily - Strict intake and output - Daily weights - Fluid restriction 1500 cc #Depression -mirtazapine 45 Mg daily at night -paroxetine 20 Mg daily #Coagulopathy PT 13.7, APTT 21.1 Secondary to sepsis -platelets downtrending: stop heparin and repeat CBC - Monitor daily a.m. labs for PT and PTT #Acute hypoxic respiratory failure-resolved #Lactic acidosis-resolved Health maintenance: Dispo: MRSA bacteremia, remove TDC Friday DVT prophylaxis: not indicated Diet: Renal diet Code: Full code The patient's management plan was discussed with my attending physician Dr. Oliveira. Ju Saez, PGY-1 Attending Provider Attestation/Addendum I have discussed and was present for the essential components of the history, physical examination, diagnosis, and treatment plan with the resident. I agree with the patient's care as documented by the resident and amended herein by me. Carter Oliveira DO. Patient seen and evaluated this AM. No acute events overnight, vital signs stable, patient afebrile, no subjective complaints per patient. Plan on removing the patient's tunneled dialysis catheter on Friday or Friday depending on IR availability and will have a PICC line placed for longer-term IV antibiotics. Echocardiogram still pending. Blood cultures negative since 11/11. Infectious disease consulted, appreciate recommendations. Although this document has been carefully reviewed, there may still be some phonetic and other typographical errors. These errors are purely grammatical due to imperfections in the software program and should not be construed in any way to compromise the substance of the patient's medical care during this visit.
[2024-11-14] MEDS: INSULIN LISPRO (AdmeLOG) 1 UNIT/0.01 ML UNIT SC (16:58)
[2024-11-14] MEDS: INSULIN LISPRO (AdmeLOG) 1 UNIT/0.01 ML UNIT 3 UNIT SC (16:58)
[2024-11-14] MEDS: risperiDONE 1 MG TABLET 3 MG PO (20:25)
[2024-11-14] MEDS: PARoxetine HCL 10 MG TABLET 20 MG PO (20:25)
[2024-11-14] MEDS: MIRTAZAPINE 15 MG TABLET 45 MG PO (20:25)
[2024-11-15] VITALS (14 sets, daily range): BP systolic 130–160; BP diastolic 84–95; PULSE 70–100; RESP 10–99; TEMP 36.1–36.3; O2SAT 94–100; BMI 42.7
[2024-11-15] MEDS: ALBUTEROL/IPRATROPIUM (Duoneb) RT SOL 3 ML NEBU INH ×4 (01:00→18:50)
[2024-11-15] MEDS: CEFEPIME INJ 2 GM in SODIUM CHLORIDE 0.9% (Popper) 50 ML IV (05:07)
[2024-11-15] MEDS: MUPIROCIN OINT 2% 15 GM TUBE TOP ×3 (05:08→21:16)
[2024-11-15 06:27] LABS: Basophils # (Auto) 0.1 Thou/mm3 (0.0-0.2); Basophils % (Auto) 1 % (0-2.5); Eosinophils # (Auto) 0.4 Thou/mm3 (0.0-0.5); Eosinophils % (Auto) 5 % (0-10); Hematocrit 36.6 % (41.0-53.0); Hemoglobin 11.5 g/dL (13.5-16.0); Immature Granulocytes % (Auto) 1 % (0-0); Immature Granulocytes Auto 0.06 Thou/mm3 (0.00-0.00); Lymphocytes % (Auto) 25 % (10-50); Mean Corpuscular HGB Conc 31.4 g/dl (31.0-37.0); Mean Corpuscular Hemoglobin 26.9 pg (25.0-35.0); Mean Corpuscular Volume 86 fL (80-100); Monocytes # (Auto) 0.7 Thou/mm3 (0.0-0.8); Monocytes % (Auto) 9 % (0-12); Neutrophils # (Auto) 4.7 Thou/mm3 (1.8-7.7); Neutrophils % (Auto) 59 % (37-80); Nucleated Red Blood Cell % 0 /100 WBC (0); Platelet Count 209 Thou/mm3 (140-440); RDW Standard Deviation 43.3 fL (35.1-43.9); Red Blood Count 4.28 Miln/mm3 (4.50-5.90); White Blood Count 7.9 Thou/mm3 (3.8-10.6)
[2024-11-15 06:55] LABS: Alanine Aminotransferase 23 U/L (10-49); Albumin, Serum 3.8 gm/dL (3.4-4.8); Albumin/Globulin Ratio 1.2 (1.2-2.2); Alkaline Phosphatase 64 U/L (46-116); Anion Gap 6 (7-16); Aspartate Amino Transferase 22 U/L (0-34); BUN/Creatinine Ratio 22 Ratio (12-20); Bilirubin,Total 0.5 mg/dL (0.3-1.2); Blood Urea Nitrogen 29 mg/dL (9-23); Calcium 9.3 mg/dL (8.3-10.6); Calcium (Corrected) 9.5 mg/dL (8.5-10.1); Carbon Dioxide 29.7 mMol/L (20.0-31.0); Chloride 100 mMol/L (98-107); Creatinine (Component) 1.3 mg/dL (0.6-1.3); Estimated Creatinine Clearance 89.1 mL/min (>60); Globulin 3.3 gm/dL (2.3-3.5); Glucose 124 mg/dL (74-106); Magnesium 1.7 mg/dL (1.6-2.6); Osmolality,Calculated 278 (275-295); Phosphorous 4.4 mg/dL (2.4-5.1); Potassium 4.4 mMol/L (3.4-5.1); Sodium 136 mMol/L (136-145); Total Protein 7.1 gm/dL (5.7-8.2); eGFR > 60 See Note
[2024-11-15] MEDS: INSULIN LISPRO (AdmeLOG) 1 UNIT/0.01 ML UNIT 3 UNIT SC (08:16)
[2024-11-15] MEDS: DILTIAZEM CD 120 MG CAPCR PO (08:17)
[2024-11-15] MEDS: Furosemide 20 MG TABLET PO (08:18)
[2024-11-15] MEDS: ASPIRIN EC 81 MG TABEC PO (08:18)
[2024-11-15] MEDS: TAMSULOSIN HCL 0.4 MG CAPSULE PO (08:18)
[2024-11-15] MEDS: Magnesium Sulfate 4 GM Ivpb 4 GM/50 ML BAG IV (09:26)
--- NOTE | 2024-11-15 09:44 | PD.RESPRO ---
Documentation for date of: 11/15/24 Subjective Subjective Interval history: Mr. Bella is a 64-year-old male with MHx of CKD since July 2024, newly on HD TTS, T2DM, HTN, CHF, CAD, COPD, A-fib, seizure disorder, HLD, morbid obesity, presenting with SOB associated with fever, chills, nausea and vomiting and headaches. Complained of urinary symptoms including urgency and frequency. He was admitted for AHRF in setting of sepsis pneumonia. He has been on HD TTS since July 2024 when he developed an ARIANA during admission. Currently labs are significant for sodium 135, CR 1.6 > 1.9, BUN 35, GFR 48 > 39, GLUCOSE 270, A1c 6.9, TB 1.3, troponin 0.046 > 0.066, BNP 239, cholesterol 127, WBC 29.9, Hgb 12.5, PLT 213. Showing positive leukocyte ESTRACE, RBC 5, WBC 9, protein 1+. CXR suspicious for pneumonia in the right base. EKG showing A-fib with HR 61, no acute ST changes. 11/12/2024 examined at bedside. Denies fever, chills, headaches, chest pain, sob, cough, GI or urinary symptoms. XARELTO on hold for HD cath removal. Renal function normal with CR 1.2, GFR >60, BUN 31. On LASIX 20 mg daily, urine out good, LE edema improved. 11/13/2024 examined at bedside. No new or worsening of symptoms. Pending HD cath removal, likely Friday. Labs stable, including renal panel. CR 1.1, BUN 25, EGFR >60. Urine output adequate with LASIX, no edema on exam. 11/14/2024 examined at bedside. Denies fever, chills, headaches, chest pain, sob, cough, GI or urinary symptoms. Renal function stable, CR 1.3, BUN 29, EGFR >60, good urine output. Exam Vital Signs Temp Pulse Resp BP Pulse Ox O2 Del Method O2 Flow Rate 96.9 F 100 19 138/87 H 98 Room Air 1 11/15/24 08:00 11/15/24 08:18 11/15/24 08:00 11/15/24 08:18 11/15/24 08:00 11/15/24 08:00 11/14/24 12:00 FiO2 30 11/15/24 06:52 Objective Labs 11/16/24 06:10 11/16/24 06:10 Labs: Laboratory Results - last 24 hr 11/15/24 05:32 WBC 7.9 RBC 4.28 L Hgb 11.5 L Hct 36.6 L MCV 86 MCH 26.9 MCHC 31.4 RDW Std Deviation 43.3 Plt Count 209 Neut % (Auto) 59 Lymph % (Auto) 25 [place] % (Auto) 9 Eos % (Auto) 5 Baso % (Auto) 1 Neut # (Auto) 4.7 Lymph # (Auto) 2.0 [place] # (Auto) 0.7 Eos # (Auto) 0.4 Baso # (Auto) 0.1 Immature Gran # (Auto) 0.06 H Absolute Nucleated RBC 0.00 Immature Gran % 1 H Nucleated RBC % 0 Sodium 136 Potassium 4.4 Chloride 100 Carbon Dioxide 29.7 Anion Gap 6 L BUN 29 H Creatinine 1.3 Estim Creat Clear Calc 89.1 eGFR > 60 BUN/Creatinine Ratio 22 H Glucose 124 H Calculated Osmolality 278 Calcium 9.3 Corrected Calcium 9.5 Phosphorus 4.4 Magnesium 1.7 Total Bilirubin 0.5 AST 22 ALT 23 Alkaline Phosphatase 64 Total Protein 7.1 Albumin 3.8 Globulin 3.3 Albumin/Globulin Ratio 1.2 ABG Interpretation ABG results: 11/09/24 04:38 ABG pH 7.35 ABG pCO2 49 H ABG pO2 124 H ABG HCO3 27 H ABG O2 Saturation 99 H ABG Base Excess 1 Quality Measures Quality Measures sepsis Current suspected stage: sepsis Possible source: pulmonary Blood cultures ordered: yes Antibiotic ordered: Yes Assessment & Plan Assessment Current Active Medications: Generic Name Dose Route Start Last Admin Trade Name Freq PRN Reason Stop Dose Admin Acetaminophen 650 mg 11/09/24 01:53 Acetaminophen 325 Mg Tablet PO 12/09/24 01:52 Q6H PRN Fever >100.4 Acetaminophen 650 mg 11/09/24 01:53 11/10/24 11:12 Acetaminophen 325 Mg Tablet PO 12/09/24 01:52 650 mg Q6H PRN Administration PAIN SCALE 1-3 (mild Albuterol/Ipratropium 3 ml 11/09/24 07:00 11/15/24 06:51 Albuterol/Ipratropium (Duoneb) Rt Aspen 3 Ml Nebu INH 12/09/24 06:59 3 ml Q6HRRT ASHWIN Administration Albuterol/Ipratropium 3 ml 11/09/24 14:20 Albuterol/Ipratropium (Duoneb) Rt [place] 3 Ml Nebu INH 12/09/24 18:59 Q6HRRT PRN WHEEZING Aspirin 81 mg 11/09/24 09:00 11/15/24 08:18 Aspirin Ec 81 Mg Tabec PO 12/09/24 08:59 81 mg QDAY ASHWIN Administration Bisacodyl 10 mg 11/09/24 02:03 Bisacodyl 10 Mg Supp [place] 12/09/24 02:14 Q72H PRN constipation Protocol Dextrose 25 ml 11/09/24 01:53 Dextrose 50%-Water Inj 50 Ml Syringe IV 12/09/24 01:52 Q15MIN PRN BG 50-70 responsive npo pt Dextrose 50 ml 11/09/24 10:46 Dextrose 50%-Water Inj 50 Ml Syringe IV 12/09/24 10:45 Q15MIN PRN BG <50 OR BG <70 & pt unresponsive Diltiazem HCl 120 mg 11/09/24 09:00 11/15/24 08:17 Diltiazem Cd 120 Mg Capcr PO 12/09/24 08:59 120 mg QDAY ASHWIN Administration Furosemide 20 mg 11/11/24 09:00 11/15/24 08:18 Furosemide 20 Mg Tablet PO 12/11/24 08:59 20 mg QAM ASHWIN Administration Glucagon 1 mg 11/09/24 10:46 Glucagon Inj 1 Mg Vial IM Q15MIN PRN BG <70, and no IV access Cefepime HCl 2 gm/ Sodium 50 mls @ 100 mls/hr 11/09/24 06:00 11/15/24 05:07 Chloride IV 11/16/24 05:59 100 mls/hr Q8HR ASHWIN Administration Magnesium Sulfate 4 gm in 50 mls @ 12.5 mls/hr 11/15/24 08:59 11/15/24 09:26 Magnesium Sulfate Ivpb IV 11/15/24 12:58 12.5 mls/hr X1 ONE Administration Insulin Glargine 10 unit 11/09/24 21:00 11/14/24 20:31 Insulin Glargine (Lantus) 5 Unit/0.05 Ml (Per 5 Units) SC 12/09/24 20:59 Not Given HS ASHWIN Insulin Human Lispro 3 unit 11/09/24 11:30 11/15/24 08:16 Insulin Lispro (Admelog) 1 Unit/0.01 Ml Unit SC 12/09/24 11:29 3 unit ACHS ASHWIN Administration Insulin Human Lispro 0 unit 11/09/24 11:30 11/15/24 07:47 Insulin Lispro (Admelog) 1 Unit/0.01 Ml Unit SC 12/09/24 11:29 Not Given ACHS ASHWIN Protocol Magnesium Hydroxide 30 ml 11/09/24 02:03 Milk Of Magnesia Susp 30 Ml Udc PO 12/09/24 02:14 Q72H PRN Constipation Protocol Mirtazapine 45 mg 11/09/24 21:00 11/14/24 20:25 Mirtazapine 15 Mg Tablet PO 12/09/24 20:59 45 mg HS ASHWIN Administration Mupirocin 0 gm 11/10/24 22:00 11/15/24 05:08 Mupirocin Oint 2% 15 Gm Tube TOP 11/17/24 21:59 1 applicatio TID ASHWIN Administration Ondansetron HCl 4 mg 11/09/24 01:53 Ondansetron Inj 2 Mg/Ml Inj 2 Ml IV 12/09/24 01:52 Q6H PRN NAUSEA OR VOMITING Protocol Paroxetine HCl 20 mg 11/09/24 21:00 11/14/24 20:25 Paroxetine Hcl 10 Mg Tablet PO 12/09/24 20:59 20 mg HS ASHWIN Administration Polyethylene Glycol 17 gm 11/09/24 09:00 11/15/24 08:18 Polyethylene Glycol 17 Gm Packet PO 12/09/24 08:59 Not Given QDAY ASHWIN Risperidone 3 mg 11/09/24 21:00 11/14/24 20:25 Risperidone 1 Mg Tablet PO 12/09/24 20:59 3 mg HS ASHWIN Administration Sennosides 1 tab 11/09/24 02:09 Senna Tablet PO 12/09/24 02:08 QDAY PRN CONSTIPATION Protocol Tamsulosin HCl 0.4 mg 11/09/24 09:00 11/15/24 08:18 Tamsulosin Hcl 0.4 Mg Capsule PO 12/09/24 08:59 0.4 mg QDAY ASHWIN Administration Plan 40-year-old male with MHx of CKD since July 2024, newly on HD TTS, T2DM, HTN, CHF, CAD, COPD, A-fib, seizure disorder, HLD, morbid obesity, presenting with SOB associated with fever, chills, nausea and vomiting and headaches. Complained of urinary symptoms including urgency and frequency. He was admitted for AHRF in setting of sepsis pneumonia. Renal function stable. Nephrology will sign-off. ARIANA -markedly improved. Patient came off dialysis. Awaiting catheter removal Renal function stable, CR 1.3, BUN 29, EGFR >60, good urine output. Nephrology will see as needed. Please consult as needed. Continue with LASIX 20 mg daily Sepsis resolved Catheter related MRSA bacteremia. Pending dialysis catheter removal Complicated UTI Diabetes mellitus type 2 Hypomagnesemia Atrial fibrillation-anticoagulation on hold NSTEMI, likely type II-asymptomatic CAD CHF Depression Coagulopathy - Managed by primary team Thank you for the opportunity to participate in the patient's care. Case was discussed with attending, Dr. Bermeo. Robina Galvan DO PGYI Attending Provider Attestation/Addendum Patient seen and examined with resident physician Dr. Quarles. Note reviewed, agree with findings and recommendations. Patient had been receiving dialysis for the last 3 months for cardiorenal syndrome. Started to make urine. On low-dose Lasix. Clinically euvolemic. Creatinine markedly improved to 1.1. Hold dialysis. Admitted with low blood pressure-from catheter related bacteremia. Blood cultures came back positive for MRSA. DC dialysis catheter. Xarelto resume
--- NOTE | 2024-11-15 10:44 | PD.IDPROG ---
Subjective Subjective Interval history: if bc stay neg thru 11/13, tomorrow, then ok for home on vanco for the mrsa bacteremia. I stopped the cefepime as that is not an appropriate agent for bacteremia with mrsa. Exam Vital Signs Temp Pulse Resp BP Pulse Ox O2 Del Method O2 Flow Rate 96.9 F 100 19 138/87 H 98 Room Air 1 11/15/24 08:00 11/15/24 08:18 11/15/24 08:00 11/15/24 08:18 11/15/24 08:00 11/15/24 08:00 11/14/24 12:00 FiO2 30 11/15/24 06:52 Narrative Exam benign exam. rt chest hd line remains (to come out today I am told). bilat stasis changes in legs noted. advice re edema control given Objective - Internal Medicine Labs 11/15/24 05:32 11/15/24 05:32 Labs: Laboratory Results - last 24 hr 11/15/24 05:32 WBC 7.9 RBC 4.28 L Hgb 11.5 L Hct 36.6 L MCV 86 MCH 26.9 MCHC 31.4 RDW Std Deviation 43.3 Plt Count 209 Neut % (Auto) 59 Lymph % (Auto) 25 [place] % (Auto) 9 Eos % (Auto) 5 Baso % (Auto) 1 Neut # (Auto) 4.7 Lymph # (Auto) 2.0 [place] # (Auto) 0.7 Eos # (Auto) 0.4 Baso # (Auto) 0.1 Immature Gran # (Auto) 0.06 H Absolute Nucleated RBC 0.00 Immature Gran % 1 H Nucleated RBC % 0 Sodium 136 Potassium 4.4 Chloride 100 Carbon Dioxide 29.7 Anion Gap 6 L BUN 29 H Creatinine 1.3 Estim Creat Clear Calc 89.1 eGFR > 60 BUN/Creatinine Ratio 22 H Glucose 124 H Calculated Osmolality 278 Calcium 9.3 Corrected Calcium 9.5 Phosphorus 4.4 Magnesium 1.7 Total Bilirubin 0.5 AST 22 ALT 23 Alkaline Phosphatase 64 Total Protein 7.1 Albumin 3.8 Globulin 3.3 Albumin/Globulin Ratio 1.2 ABG Interpretation ABG results: 11/09/24 04:38 ABG pH 7.35 ABG pCO2 49 H ABG pO2 124 H ABG HCO3 27 H ABG O2 Saturation 99 H ABG Base Excess 1 Assessment & Plan A&P Narrative rolan 3, resolving per pt stasis dermatitis please remove hd line and if new line needed, then it can be placed any time as bc from 11/11 remain neg from 11/11. preferably in a new site as bc are neg from 11/11. ok to plan rx thru 11/24 with vanco, pharm to dose. if germ is s and you want to preserve renal fxn, you can try daptomycin daily instead of vanco. as dapto is less nephrotoxic than vanco. Time Spent With Patient Time: Total time spent is greater than 50% in coordination of care (as documented) at patient's floor/unit and/or counseling patient:
--- NOTE | 2024-11-15 10:52 | PD.IDPROG ---
Subjective Subjective Interval history: has some stasis dermatitis in both legs. rest of exam benign. hd line in rt chest noted. Exam Vital Signs Temp Pulse Resp BP Pulse Ox O2 Del Method O2 Flow Rate 96.9 F 100 19 138/87 H 98 Room Air 1 11/15/24 08:00 11/15/24 08:18 11/15/24 08:00 11/15/24 08:18 11/15/24 08:00 11/15/24 08:00 11/14/24 12:00 FiO2 30 11/15/24 06:52 Narrative Exam hd line in rt chest noted. Objective - Internal Medicine Labs 11/15/24 05:32 11/15/24 05:32 Labs: Laboratory Results - last 24 hr 11/15/24 05:32 WBC 7.9 RBC 4.28 L Hgb 11.5 L Hct 36.6 L MCV 86 MCH 26.9 MCHC 31.4 RDW Std Deviation 43.3 Plt Count 209 Neut % (Auto) 59 Lymph % (Auto) 25 [place] % (Auto) 9 Eos % (Auto) 5 Baso % (Auto) 1 Neut # (Auto) 4.7 Lymph # (Auto) 2.0 [place] # (Auto) 0.7 Eos # (Auto) 0.4 Baso # (Auto) 0.1 Immature Gran # (Auto) 0.06 H Absolute Nucleated RBC 0.00 Immature Gran % 1 H Nucleated RBC % 0 Sodium 136 Potassium 4.4 Chloride 100 Carbon Dioxide 29.7 Anion Gap 6 L BUN 29 H Creatinine 1.3 Estim Creat Clear Calc 89.1 eGFR > 60 BUN/Creatinine Ratio 22 H Glucose 124 H Calculated Osmolality 278 Calcium 9.3 Corrected Calcium 9.5 Phosphorus 4.4 Magnesium 1.7 Total Bilirubin 0.5 AST 22 ALT 23 Alkaline Phosphatase 64 Total Protein 7.1 Albumin 3.8 Globulin 3.3 Albumin/Globulin Ratio 1.2 ABG Interpretation ABG results: 11/09/24 04:38 ABG pH 7.35 ABG pCO2 49 H ABG pO2 124 H ABG HCO3 27 H ABG O2 Saturation 99 H ABG Base Excess 1 Assessment & Plan A&P Narrative rolan 3, resolving per pt stasis dermatitis hx of obesity and other concerns. on disability for those reasons please remove hd line and if new line needed, then it can be placed any time as bc from 11/11 remain neg from 11/11. preferably in a new site as bc are neg from 11/11. ok to plan rx thru 11/24 with daptomycin daily instead of vanco. as dapto is less nephrotoxic than vanco. ok to finish rx as outpt off hd if plan is to stop hd rx Time Spent With Patient Time: Total time spent is greater than 50% in coordination of care (as documented) at patient's floor/unit and/or counseling patient:
--- NOTE | 2024-11-15 10:54 | PC.SS ---
Follow up note: PICC line placement today for IV antibiotic. Pt will return [facility] [place].
--- NOTE | 2024-11-15 11:16 | ESCONSULT_ITS ---
<Statement entered by Rudy Floyd MD - 11/17/24 17:10> pt seen with resident. all findings confirmed HPI Data of Consult Consult date: 11/15/24 Requesting Physician: Oscar Oliveira DO Admitting Provider: Barry Yousif MD Attending Provider: Oscar Oliveira DO Primary Care Provider: Johnnie Yousif MD ([facility]) Consult Narrative Reason for consult: MRSA bacteremia History of present illness: Mr. Garza is a 64-year-old male with past medical history of temporary hemodialysis in the setting of ARIANA, major depressive with psychotic features, A- fib, BPH, chronic pain, morbid obesity who came to [facility] with a chief complaint of Shortness of breath. Patient was experiencing subjective fever, chills, nausea and vomiting along with a headache with generalized weakness. In the emergency department he was found to be febrile and a sepsis alert was called the patient. He was also noted to be hyperglycemic. He was admitted for healthcare associated pneumonia complicated with acute hypoxic respiratory failure requiring nasal cannula/oxy mask. PMH: As mentioned above SHX: S/p spinal stenosis surgery of cervical vertebra, appendectomy Family history: Unremarkable Medications: Aspirin 81 Mg, diltiazem 120 Mg ER, Dulcolax, Fleet enema, milk of magnesium as needed for constipation, lidocaine patch, mirtazapine 45 Mg daily at bedtime, paroxetine 20 Mg daily, PEG 17 g as needed for constipation, Zuly- Cruz, sublaminar, risperidone 3 Mg at night, rivaroxaban 20 Mg daily, senna, tamsulosin 0.4 Mg daily, Tradjenta 5 Mg daily. Allergies: Atorvastatin, lisinopril, sulfa, trimethoprim cc:: cc: Oscar Oliveira DO Review of Systems Review of Systems Systems Reviewed: All systems reviewed, normal except as documented Exam Vital Signs Temp Pulse Resp BP Pulse Ox O2 Del Method O2 Flow Rate 96.9 F 100 19 138/87 H 98 Room Air 1 11/15/24 08:00 11/15/24 08:18 11/15/24 08:00 11/15/24 08:18 11/15/24 08:00 11/15/24 08:00 11/14/24 12:00 FiO2 30 11/15/24 06:52 Narrative Exam General: Elderly male, obese, no acute distress, cooperative able to converse without shortness of breath HEENT: NCAT, No JVD noted. Mucosa moist. Pupils are equal and reactive to light bilaterally Cardiovascular: Normal S1 and S2. Regular rate and rhythm. Respiratory: Lungs are clear to auscultation bilaterally. No wheezing or crackles heard. Abdomen: Soft, nontender, not distended, normal bowel sounds. Skin: Warm to touch, dry, lower extremity venous stasis discoloration, TDC still in place Musculoskeletal: No gross injuries. Able to move all 4 extremities. No pitting edema. Neuro: Alert and oriented x3. No focal neuro deficits. Psych: Normal affect and mood Results Labs 11/15/24 05:32 11/15/24 05:32 Labs: Short CBC 11/15/24 Range/Units 05:32 WBC 7.9 (3.8-10.6) Thou/mm3 Hgb 11.5 L (13.5-16.0) g/dL Hct 36.6 L (41.0-53.0) % Plt Count 209 (140-440) Thou/mm3 BMP 11/15/24 05:32 Sodium 136 Potassium 4.4 Chloride 100 Carbon Dioxide 29.7 BUN 29 H Creatinine 1.3 Glucose 124 H Calcium 9.3 Liver Function 11/15/24 Range/Units 05:32 Total Bilirubin 0.5 (0.3-1.2) mg/dL AST 22 (0-34) U/L ALT 23 (10-49) U/L Alkaline Phosphatase 64 (46-116) U/L Albumin 3.8 (3.4-4.8) gm/dL ABG Interpretation ABG results: 11/09/24 04:38 ABG pH 7.35 ABG pCO2 49 H ABG pO2 124 H ABG HCO3 27 H ABG O2 Saturation 99 H ABG Base Excess 1 Quality Measures Quality Measures sepsis Current suspected stage: ruled out Possible source: pulmonary Blood cultures ordered: yes Antibiotic ordered: Yes Medications Home Medications and Allergies Home Medications ?Medication ?Instructions ?Recorded ?Confirmed ?Type aspirin 81 mg chewable tablet 81 mg PO QDAY 11/09/24 0 11/09/24 History bisacodyl 10 mg rectal suppository 10 mg KS Q3D PRN co nstipation 11/09/24 11/09/24 History insulin aspar prt-insulin aspart 1 sliding scale dose subcut 11/09/24 11/09/24 History 100 unit/mL (70-30) subcutaneous USEASDIRECTD soln (Novolog Mix 70-30 U-100 Insuln) magnesium hydroxide 400 mg/5 mL 30 ml PO Q3D PRN const ipation 11/09/24 11/09/24 History oral suspension (Milk of Magnesia) risperidone 3 mg tablet (Risperdal) 3 mg PO QDAY 11/0911/09/24 History rivaroxaban 20 mg tablet 20 mg PO QDAY 11/09/2411/09 History sevelamer carbonate 800 mg tablet 800 mg PO TID 11/09/24 History (Renvela) sodium phosphates 19 gram-7 118 ml KS Q3D PRN constipa tion 11/09/24 11/09/24 History gram/118 mL enema (Enema) tamsulosin 0.4 mg capsule 0.4 mg PO HS 11/09/24 History vitamin B complex-vitamin C-folic 1 tab PO QDAY 11/09/24 History acid 0.8 mg tablet (Dialyvite 800) Allergies Allergy/AdvReac Type Severity Reaction Status Date / Time atorvastatin Allergy Verified 08/09/24 13:49 lisinopril Allergy Verified 08/09/24 13:49 sulfamethoxazole (From Allergy Verified 08/09/24 13:49 Bactrim) trimethoprim (From Bactrim) Allergy Verified 08/09/24 13:49 Visit Medications Acetaminophen (Acetaminophen 325 Mg Tablet) 650 mg PO Q6H PRN PRN Reason: Fever >100.4 Stop: 12/09/24 01:52 Acetaminophen (Acetaminophen 325 Mg Tablet) 650 mg PO Q6H PRN PRN Reason: PAIN SCALE 1-3 (mild Stop: 12/09/24 01:52 Last Admin: 11/10/24 11:12 Dose: 650 mg Albuterol/Ipratropium (Albuterol/Ipratropium (Duoneb) Rt Aspen 3 Ml Nebu) 3 ml INH Q6HRRT ASHWIN Stop: 12/09/24 06:59 Last Admin: 11/15/24 06:51 Dose: 3 ml Albuterol/Ipratropium (Albuterol/Ipratropium (Duoneb) Rt Aspen 3 Ml Nebu) 3 ml INH Q6HRRT PRN PRN Reason: WHEEZING Stop: 12/09/24 18:59 Aspirin (Aspirin Ec 81 Mg Tabec) 81 mg PO QDAY [facility] Stop: 12/09/24 08:59 Last Admin: 11/15/24 08:18 Dose: 81 mg Bisacodyl (Bisacodyl 10 Mg Supp) 10 mg KS Q72H PRN; Protocol PRN Reason: constipation Stop: 12/09/24 02:14 Dextrose (Dextrose 50%-Water Inj 50 Ml Syringe) 25 ml IV Q15MIN PRN PRN Reason: BG 50-70 responsive npo pt Stop: 12/09/24 01:52 Dextrose (Dextrose 50%-Water Inj 50 Ml Syringe) 50 ml IV Q15MIN PRN PRN Reason: BG <50 OR BG <70 & pt unresponsive Stop: 12/09/24 10:45 Diltiazem HCl (Diltiazem Cd 120 Mg Capcr) 120 mg PO QDAY [facility] Stop: 12/09/24 08:59 Last Admin: 11/15/24 08:17 Dose: 120 mg Furosemide (Furosemide 20 Mg Tablet) 20 mg PO QAM ASHWIN Stop: 12/11/24 08:59 Last Admin: 11/15/24 08:18 Dose: 20 mg Glucagon (Glucagon Inj 1 Mg Vial) 1 mg IM Q15MIN PRN PRN Reason: BG <70, and no IV access Magnesium Sulfate (Magnesium Sulfate Ivpb) 4 gm in 50 mls @ 12.5 mls/hr IV X1 ONE Stop: 11/15/24 12:58 Last Admin: 11/15/24 09:26 Dose: 12.5 mls/hr Daptomycin 1,200 mg/ Sodium (Chloride) 50 mls @ 100 mls/hr IV QDAY [facility] Stop: 11/22/24 11:59 Insulin Glargine (Insulin Glargine (Lantus) 5 Unit/0.05 Ml (Per 5 Units)) 10 unit SC HS [facility] Stop: 12/09/24 20:59 Last Admin: 11/14/24 20:31 Dose: Not Given Insulin Human Lispro (Insulin Lispro (Admelog) 1 Unit/0.01 Ml Unit) 3 unit SC ACHS [facility] Stop: 12/09/24 11:29 Last Admin: 11/15/24 11:09 Dose: Not Given Insulin Human Lispro (Insulin Lispro (Admelog) 1 Unit/0.01 Ml Unit) 0 unit SC [facility]; Protocol Stop: 12/09/24 11:29 Last Admin: 11/15/24 11:09 Dose: Not Given Magnesium Hydroxide (Milk Of Magnesia Susp 30 Ml Udc) 30 ml PO Q72H PRN; Protocol PRN Reason: Constipation Stop: 12/09/24 02:14 Mirtazapine (Mirtazapine 15 Mg Tablet) 45 mg PO HS [facility] Stop: 12/09/24 20:59 Last Admin: 11/14/24 20:25 Dose: 45 mg Mupirocin (Mupirocin Oint 2% 15 Gm Tube) 0 gm TOP TID ASHWIN Stop: 11/17/24 21:59 Last Admin: 11/15/24 05:08 Dose: 1 applicatio Ondansetron HCl (Ondansetron Inj 2 Mg/Ml Inj 2 Ml) 4 mg IV Q6H PRN; Protocol PRN Reason: NAUSEA OR VOMITING Stop: 12/09/24 01:52 Paroxetine HCl (Paroxetine Hcl 10 Mg Tablet) 20 mg PO HS [facility] Stop: 12/09/24 20:59 Last Admin: 11/14/24 20:25 Dose: 20 mg Polyethylene Glycol (Polyethylene Glycol 17 Gm Packet) 17 gm PO QDAY [facility] Stop: 12/09/24 08:59 Last Admin: 11/15/24 08:18 Dose: Not Given Risperidone (Risperidone 1 Mg Tablet) 3 mg PO [facility] Stop: 12/09/24 20:59 Last Admin: 11/14/24 20:25 Dose: 3 mg Sennosides (Senna Tablet) 1 tab PO QDAY PRN; Protocol PRN Reason: CONSTIPATION Stop: 12/09/24 02:08 Tamsulosin HCl (Tamsulosin Hcl 0.4 Mg Capsule) 0.4 mg PO QDAY [facility] Stop: 12/09/24 08:59 Last Admin: 11/15/24 08:18 Dose: 0.4 mg Discontinued Medications Hydrocodone Bitart/Acetaminophen (Hydrocodone/Apap 5/325 Tablet) 1 tab PO Q4HR PRN PRN Reason: PAIN SCALE 4-6 (Moderate Stop: 11/14/24 01:52 Dextrose (Dextrose 50%-Water Inj 50 Ml Syringe) 50 ml IV Q15MIN PRN PRN Reason: BG <50 OR BG <70 & pt unresponsive Stop: 12/09/24 01:52 Dextrose (Dextrose 50%-Water Inj 50 Ml Syringe) 25 ml IV Q15MIN PRN PRN Reason: BG 50-70 responsive npo pt Stop: 12/09/24 10:45 Diltiazem HCl (Diltiazem Cd 120 Mg Capcr) 120 mg PO X1 ONE Stop: 11/09/24 03:01 Enoxaparin Sodium (Enoxaparin Sod Inj 40 Mg/0.4 Ml Syringe) 40 mg SC QDAY [facility] Stop: 11/23/24 08:59 Glucagon (Glucagon Inj 1 Mg Vial) 1 mg IM Q15MIN PRN PRN Reason: BG <70, and no IV access Piperacillin Sod/Tazobactam (Sod 3.375 gm/ Sodium Chloride) 50 mls @ 100 mls/hr IV X1 ONE Stop: 11/08/24 23:14 Last Infusion: 11/08/24 23:42 Dose: Infused Vancomycin HCl 1,000 mg/ (Sodium Chloride) 250 mls @ 150 mls/hr IV X1 ONE Stop: 11/09/24 00:05 Last Infusion: 11/09/24 01:23 Dose: Infused Magnesium Sulfate (Magnesium Sulfate Ivpb) 2 gm in 50 mls @ 25 mls/hr IV X1 ONE Stop: 11/09/24 03:23 Last Admin: 11/09/24 01:36 Dose: 25 mls/hr Magnesium Sulfate (Magnesium Sulfate Ivpb) 2 gm in 50 mls @ 25 mls/hr IV X1 ONE Stop: 11/09/24 03:49 Last Admin: 11/09/24 03:26 Dose: 25 mls/hr Doxycycline Hyclate 100 mg/ (Sodium Chloride) 100 mls @ 100 mls/hr IV BID ASHWIN Stop: 11/16/24 08:59 Last Admin: 11/11/24 09:02 Dose: 100 mls/hr Cefepime HCl 2 gm/ Sodium (Chloride) 50 mls @ 100 mls/hr IV Q8HR ASHWIN Stop: 11/16/24 05:59 Last Admin: 11/15/24 05:07 Dose: 100 mls/hr Sodium Chloride (Ns) 1,000 mls @ 999 mls/hr IV .Q1H1M [facility] Stop: 11/09/24 09:10 Last Admin: 11/09/24 10:57 Dose: Not Given Sodium Chloride (Ns) 500 mls @ 999 mls/hr IV .Q31M [facility] Stop: 11/09/24 11:30 Last Admin: 11/09/24 10:51 Dose: 999 mls/hr Vancomycin HCl 2,000 mg/ (Sodium Chloride) 500 mls @ 150 mls/hr IV X1 ONE Stop: 11/11/24 10:19 Last Admin: 11/11/24 08:09 Dose: 150 mls/hr Vancomycin HCl/Dextrose (Vancomycin/D5w 1,250 Mg Ivpb) 250 mls @ 120 mls/hr IV Q8HR [facility]; Protocol Stop: 11/19/24 06:29 Last Admin: 11/13/24 07:07 Dose: Not Given Vancomycin/Sodium Chloride (Vancomycin/Ns 750 Mg Ivpb) 750 mg in 150 mls @ 120 mls/hr IV Q8HR [facility] Stop: 11/20/24 13:59 Insulin Human Lispro (Insulin Lispro (Admelog) 1 Unit/0.01 Ml Unit) 0 unit SC AC [facility]; Protocol Stop: 12/09/24 07:29 Last Admin: 11/09/24 12:00 Dose: Not Given Insulin Human Lispro (Insulin Lispro (Admelog) 1 Unit/0.01 Ml Unit) 4 unit SC X1 ONE Stop: 11/09/24 03:35 Last Admin: 11/09/24 04:07 Dose: 4 unit Lidocaine (Lidocaine 5% 1 Patch) 1 patch TOP X1 ONE Stop: 11/09/24 02:04 Last Admin: 11/09/24 03:22 Dose: Not Given Ondansetron HCl (Ondansetron Inj 2 Mg/Ml Inj 2 Ml) 4 mg IV Q6HR PRN PRN Reason: NAUSEA OR VOMITING Stop: 12/08/24 22:22 Pharmacy Consult (Vancomycin Pharmacy To Dose 1 Each Each) 1 each IV QDAY [facility] Stop: 12/15/24 10:59 Rivaroxaban (Rivaroxaban 10 Mg Tablet) 20 mg PO QPM [facility] Stop: 12/09/24 20:59 Last Admin: 11/09/24 22:13 Dose: 20 mg Rivaroxaban (Rivaroxaban 10 Mg Tablet) 20 mg PO WSUPPER [facility] Stop: 12/09/24 20:59 Sevelamer Carbonate (Sevelamer Carbonate 800 Mg Tablet) 800 mg PO DAILY [facility] Stop: 12/09/24 08:59 Sevelamer Carbonate (Sevelamer Carbonate 800 Mg Tablet) 800 mg PO TIDWM [facility]WIN Stop: 12/09/24 07:59 Last Admin: 11/13/24 08:50 Dose: 800 mg Sodium Chloride (Sodium Chloride Rt 10% 15 Ml Nebu) 5 ml INH X1 ONE Stop: 11/09/24 01:54 Last Admin: 11/14/24 07:08 Dose: Not Given Assessment & Plan Plan #MRSA bacteremia Patient has tunneled dialysis catheter which may be the source of his MRSA bacteremia. Febrile on initial presentation. On room air currently and able to converse without dyspnea. WBC count within normal range Susceptible to vancomycin Patient was initially on vancomycin with pharmacy to dose but has not received a dose for the previous 2 days Will switch over to daptomycin until November 24 Blood cultures remain negative from November 11. 1 out of 2 positive for MRSA. Transthoracic echocardiogram negative for vegetations No longer requiring hemodialysis and is able to make urine. May not require replacement of TDC TDC likely to be removed today #ARIANA on CKD #CAD #COPD #Chronic morbid obesity #A-fib #BPH Management as per primary team Plan of care discussed with supervising attending Dr Everett Braxton M.D. PGY-3
--- NOTE | 2024-11-15 12:23 | ESCONSULT_ITS ---
RE: YNES NEIL : 1960 DATE OF CONSULTATION: 11/15/2024 REFERRING PHYSICIAN: Dr. Oliveira. REASON FOR CONSULTATION: Diabetes-associated bacteremia. HISTORY OF PRESENT ILLNESS: The patient is a 64-year-old who is on dialysis recently for acute renal failure. It apparently has resolved, so a decision was made to take him off dialysis. In the meantime, he ended up with MRSA bacteremia. His vancomycin has been stopped. He has been left with cefepime for reasons that are unclear. His cefepime is not an appropriate agent for MRSA. IV vancomycin or IV daptomycin are more appropriate. Daptomycin can be dosed daily and is not felt to be nephrotoxic. Some feel it is less effective than vancomycin, but the germ is sensitive. The patient has done well. His lines will be removed and may have been already. and treatment should go on through 11/24. If his echocardiogram is negative, then we can stop there. If his echocardiogram is positive or more blood cultures show more germs, then we will have to consider alternatives. His echocardiogram on the , though appears to be negative for endocarditis or valvular vegetations. Furthermore, blood cultures were not positive for very long, so he did have a TDC at one time that was subsequently removed on 08/18 and looks like a dialysis catheter may have been placed at that time. It could be removed at this time. Please make arrangements to do so. I will see you again on Friday if he is here, but he can go home and finish treatment as an outpatient if you prefer that. If you want to put a new dialysis line in as you need it, then you can do that at any time. His blood sugars were negative from the . The usual course of treatment is going to be 14 days from first neg bc which should be again as day one. It will be through 11/24. I will see him again briefly on friday. If we use daptomycin that is okay, as the germ is sensitive I note that he does have some renal insufficiency so we would want to avoid nephrotoxins. DT: 10:57:16 TT: 11:33:00 Ref: [id number] - TID: [id number] MTDD
[2024-11-15] MEDS: DAPTOMYCIN IV (12:47)
[2024-11-15] MEDS: SODIUM CHLORIDE 0.9% IV (12:47)
--- NOTE | 2024-11-15 13:08 | ESPR_ITS ---
<Statement entered by Carlos Alberto Ramey MD - 11/16/24 08:05> I discussed with and supervised the internal revenue service agent physician involved in the care of this patient. Patient assessment and plan was discussed with entire medicine team, including my attending. I agree with the assessment and plan as documented by internal revenue service agent doctor. Patient care was discussed with my attending physician Dr. Tee Ramey, PGY-2 Documentation for date of: 11/15/24 Subjective Subjective Interval history: Patient examined at bedside. No events overnight, no major complaints. Patient remains in A-fib with rate 80?90. Slight increase in Cr to 1.3. Maybe due to vancomycin. Otherwise labs unremarkable. Sugars well controlled. Patient was initially on vancomycin with pharmacy to dose but has not received a dose for the previous 2 days Will switch over to daptomycin until November 24 for treatment of MRSA bacteremia, per ID Cefepime for HAP was discontinued by ID. Final blood cultures from 11/11 are negative. Planning to remove TDC on Friday by IR and placement of PICC. Holding aspirin now in addition to Xarelto. Exam Vital Signs Temp Pulse Resp BP Pulse Ox O2 Del Method O2 Flow Rate 96.9 F 99 14 138/87 H 98 Room Air 1 11/15/24 08:00 11/15/24 12:37 11/15/24 12:37 11/15/24 08:18 11/15/24 12:37 11/15/24 08:00 11/14/24 12:00 FiO2 30 11/15/24 06:52 Narrative Exam General: Elderly male, obese, no acute distress, cooperative HEENT: NCAT, No JVD noted. Mucosa moist. Pupils are equal and reactive to light bilaterally Cardiovascular: Normal S1 and S2. Regular rate and rhythm. Respiratory: Lungs are clear to auscultation bilaterally. No wheezing or crackles heard. Abdomen: Soft, nontender, not distended, normal bowel sounds. Skin: Warm to touch, dry, lower extremity venous stasis discoloration, TDC Musculoskeletal: No gross injuries. Able to move all 4 extremities. No pitting edema. Neuro: Alert and oriented x3. No focal neuro deficits. Psych: Normal affect and mood Objective Labs 11/15/24 05:32 11/15/24 05:32 Labs: Laboratory Results - last 24 hr 11/15/24 05:32 WBC 7.9 RBC 4.28 L Hgb 11.5 L Hct 36.6 L MCV 86 MCH 26.9 MCHC 31.4 RDW Std Deviation 43.3 Plt Count 209 Neut % (Auto) 59 Lymph % (Auto) 25 [place] % (Auto) 9 Eos % (Auto) 5 Baso % (Auto) 1 Neut # (Auto) 4.7 Lymph # (Auto) 2.0 [place] # (Auto) 0.7 Eos # (Auto) 0.4 Baso # (Auto) 0.1 Immature Gran # (Auto) 0.06 H Absolute Nucleated RBC 0.00 Immature Gran % 1 H Nucleated RBC % 0 Sodium 136 Potassium 4.4 Chloride 100 Carbon Dioxide 29.7 Anion Gap 6 L BUN 29 H Creatinine 1.3 Estim Creat Clear Calc 89.1 eGFR > 60 BUN/Creatinine Ratio 22 H Glucose 124 H Calculated Osmolality 278 Calcium 9.3 Corrected Calcium 9.5 Phosphorus 4.4 Magnesium 1.7 Total Bilirubin 0.5 AST 22 ALT 23 Alkaline Phosphatase 64 Total Protein 7.1 Albumin 3.8 Globulin 3.3 Albumin/Globulin Ratio 1.2 ABG Interpretation ABG results: 11/09/24 04:38 ABG pH 7.35 ABG pCO2 49 H ABG pO2 124 H ABG HCO3 27 H ABG O2 Saturation 99 H ABG Base Excess 1 Quality Measures Quality Measures sepsis Current suspected stage: ruled out Possible source: pulmonary Blood cultures ordered: yes Antibiotic ordered: Yes Assessment & Plan Assessment Current Active Medications: Generic Name Dose Route Start Last Admin Trade Name Freq PRN Reason Stop Dose Admin Acetaminophen 650 mg 11/09/24 01:53 Acetaminophen 325 Mg Tablet PO 12/09/24 01:52 Q6H PRN Fever >100.4 Acetaminophen 650 mg 11/09/24 01:53 11/10/24 11:12 Acetaminophen 325 Mg Tablet PO 12/09/24 01:52 650 mg Q6H PRN Administration PAIN SCALE 1-3 (mild Albuterol/Ipratropium 3 ml 11/09/24 07:00 11/15/24 12:34 Albuterol/Ipratropium (Duoneb) Rt Aspen 3 Ml Nebu INH 12/09/24 06:59 3 ml Q6HRRT ASHWIN Administration Albuterol/Ipratropium 3 ml 11/09/24 14:20 Albuterol/Ipratropium (Duoneb) Rt Aspen 3 Ml Nebu INH 12/09/24 18:59 Q6HRRT PRN WHEEZING Aspirin 81 mg 11/09/24 09:00 11/15/24 08:18 Aspirin Ec 81 Mg Tabec PO 12/09/24 08:59 81 mg QDAY ASHWIN Administration Bisacodyl 10 mg 11/09/24 02:03 Bisacodyl 10 Mg Supp ME 12/09/24 02:14 Q72H PRN constipation Protocol Dextrose 25 ml 11/09/24 01:53 Dextrose 50%-Water Inj 50 Ml Syringe IV 12/09/24 01:52 Q15MIN PRN BG 50-70 responsive npo pt Dextrose 50 ml 11/09/24 10:46 Dextrose 50%-Water Inj 50 Ml Syringe IV 12/09/24 10:45 Q15MIN PRN BG <50 OR BG <70 & pt unresponsive Diltiazem HCl 120 mg 11/09/24 09:00 11/15/24 08:17 Diltiazem Cd 120 Mg Capcr PO 12/09/24 08:59 120 mg QDAY ASHWIN Administration Furosemide 20 mg 11/11/24 09:00 11/15/24 08:18 Furosemide 20 Mg Tablet PO 12/11/24 08:59 20 mg QAM ASHWIN Administration Glucagon 1 mg 11/09/24 10:46 Glucagon Inj 1 Mg Vial IM Q15MIN PRN BG <70, and no IV access Daptomycin 1,000 mg/ Sodium 50 mls @ 100 mls/hr 11/15/24 12:30 11/15/24 12:47 Chloride IV 11/22/24 12:29 100 mls/hr Q24H ASHWIN Administration Insulin Glargine 10 unit 11/09/24 21:00 11/14/24 20:31 Insulin Glargine (Lantus) 5 Unit/0.05 Ml (Per 5 Units) SC 12/09/24 20:59 Not Given HS ASHWIN Insulin Human Lispro 3 unit 11/09/24 11:30 11/15/24 11:09 Insulin Lispro (Admelog) 1 Unit/0.01 Ml Unit SC 12/09/24 11:29 Not Given ACHS ASHWIN Insulin Human Lispro 0 unit 11/09/24 11:30 11/15/24 11:09 Insulin Lispro (Admelog) 1 Unit/0.01 Ml Unit SC 12/09/24 11:29 Not Given ACHS ASHWIN Protocol Magnesium Hydroxide 30 ml 11/09/24 02:03 Milk Of Magnesia Susp 30 Ml Udc PO 12/09/24 02:14 Q72H PRN Constipation Protocol Mirtazapine 45 mg 11/09/24 21:00 11/14/24 20:25 Mirtazapine 15 Mg Tablet PO 12/09/24 20:59 45 mg HS ASHWIN Administration Mupirocin 0 gm 11/10/24 22:00 11/15/24 05:08 Mupirocin Oint 2% 15 Gm Tube TOP 11/17/24 21:59 1 applicatio TID ASHWIN Administration Ondansetron HCl 4 mg 11/09/24 01:53 Ondansetron Inj 2 Mg/Ml Inj 2 Ml IV 12/09/24 01:52 Q6H PRN NAUSEA OR VOMITING Protocol Paroxetine HCl 20 mg 11/09/24 21:00 11/14/24 20:25 Paroxetine Hcl 10 Mg Tablet PO 12/09/24 20:59 20 mg HS ASHWIN Administration Polyethylene Glycol 17 gm 11/09/24 09:00 11/15/24 08:18 Polyethylene Glycol 17 Gm Packet PO 12/09/24 08:59 Not Given QDAY ASHWIN Risperidone 3 mg 11/09/24 21:00 11/14/24 20:25 Risperidone 1 Mg Tablet PO 12/09/24 20:59 3 mg HS ASHWIN Administration Sennosides 1 tab 11/09/24 02:09 Senna Tablet PO 12/09/24 02:08 QDAY PRN CONSTIPATION Protocol Tamsulosin HCl 0.4 mg 11/09/24 09:00 11/15/24 08:18 Tamsulosin Hcl 0.4 Mg Capsule PO 12/09/24 08:59 0.4 mg QDAY ASHWIN Administration Plan Andrew Bella is 64-year-old male with past medical history significant for hypertension, diabetes mellitus type 2, CHF, CAD, COPD, A-fib, seizure disorder, hyperlipidemia, morbid obesity and ARIANA on hemodialysis TTS schedule was brought in by ambulance to ED after developing SOB for 1 day. The patient is admitted to [facility] telemetry unit for further management of acute hypoxic respiratory failure secondary to sepsis secondary to healthcare associated pneumonia. #MRSA bacteremia #Healthcare associated pneumonia Patient presented with SOB, has been on [facility], and was requiring 5 L oxygen via facemask for proper oxygen saturation. Met 3/4 SIRS criteria with temperature 102.9 and white count of 27.4, tachypnea with source of infection as right-sided pneumonia and UTI. End organ damage evidenced by ARIANA. Did not receive 30 cc/kg of crystalloid fluid bolus because of concern for CHF in ED Urine culture negative. Blood cultures blood cultures on 11/08 grew MRSA in both sets Repeat cultures on 11/09 was demonstrating Staphylococcus simulans, Final blood cultures from 11/11 are negative. Vancomycin (11/11-) TTE 11/12: Poor quality images. No clear valvular vegetations. Normal LV size and function. Estimated EF 55-60%. Mild LVH. Diastolic dysfunction present but cannot be graded because of the A-fib. Plan: -ID recs pending: Will switch over to daptomycin until November 24 (11/15-11/24) for treatment of MRSA bacteremia -Source is most likely from TDC--planning to remove Friday with interventional radiology -cefepime 2 g TID stopped by ID -DuoNeb every 6 hourly scheduled -Daily a.m. labs for CBC, CMP and electrolytes -Oxygen as needed #Hx MARK Patient demand increasing at night with apneic episodes reported by nursing. Further questioning patient stated that he has been previously diagnosed with MARK about 5 years ago. Does not endorse using machine at home. ? Start BiPAP at bedtime ? Patient will need to repeat sleep outpatient #History of insulin-dependent type 2 diabetes, well controlled On admission initial glucose 242. Last A1c 7.1 on 08/10/24 A1c on this admission 6.9 -Held home medications -Bedside blood glucose checks ACHS -Continue 10 units glargine ?3 units lispro TID -Insulin lispro sliding scale -Carb consistent low diet #Hypomagnesemia Presented with magnesium level of 1.5 - Received 4 g magnesium sulfate - Daily a.m. labs for magnesium, replete as needed #Atrial fibrillation Patient has history of atrial fibrillation - resume diltiazem ER 120 Mg daily - hold rivaroxaban 20 Mg daily until TDC removed till Friday - Daily a.m. labs for electrolytes, maintain potassium greater than 4 and magnesium greater than 2 #NSTEMI, likely type II Presented with troponin of 0.046 Appears that patient's baseline troponin is slightly elevated, may be due to end-stage renal disease -delta acheived #Coronary artery disease by history #CHF with preserved ejection fraction, EF 55 to 60%, diastolic heart failure ECHO: Poor quality images. No clear valvular vegetations. Consider REECE if high clinical index of suspicion. Normal LV size and function. Estimated EF 55-60%. Mild LVH. Diastolic dysfunction present but cannot be graded because of the A-fib. Moderately dilated RV. Normal RV function. Elevated RVSP. Mild biatrial dilatation. Right greater than left. Mild MR. Trace TR -Continue PO Lasix 20mg daily - holding aspirin 81 Mg daily until TDC removed and PICC placed - Strict intake and output - Daily weights - Fluid restriction 1500 cc #Depression -mirtazapine 45 Mg daily at night -paroxetine 20 Mg daily #Coagulopathy PT 13.7, APTT 21.1 Secondary to sepsis -platelets downtrending: stop heparin and repeat CBC - Monitor daily a.m. labs for PT and PTT #Acute hypoxic respiratory failure-resolved #Lactic acidosis-resolved #ARIANA-resolved Health maintenance: Dispo: MRSA bacteremia, remove TDC Friday DVT prophylaxis: not indicated Diet: Renal diet Code: Full code The patient's management plan was discussed with my attending physician Dr. Oliveira. Shanae Pandya, PGY1 Attending Provider Attestation/Addendum I have discussed and was present for the essential components of the history, physical examination, diagnosis, and treatment plan with the resident. I agree with the patient's care as documented by the resident and amended herein by me. Carter Oliveira DO. Patient seen and evaluated this AM. No acute events overnight, vital signs stable, patient afebrile. Patient with PICC line placed tomorrow and tunneled dialysis catheter removed tomorrow. Vancomycin was removed from the patient by nephrology, unclear reasons unless fear for ARIANA however considering the patient is MRSA however infectious disease has chosen daptomycin which can be dosed daily and is not nephrotoxic. Was negative for any valvular vegetations on echo. Daptomycin can be continued until 11/24. Appreciate specialist recommendations. Although this document has been carefully reviewed, there may still be some phonetic and other typographical errors. These errors are purely grammatical due to imperfections in the software program and should not be construed in any way to compromise the substance of the patient's medical care during this visit.
--- NOTE | 2024-11-15 16:58 | PC.NURSE ---
unable to remove cath or insert PICC line due to Aspirin not being held per Radiologist hold aspirin 1 or 2 days.
[2024-11-15] MEDS: risperiDONE 1 MG TABLET 3 MG PO (21:13)
[2024-11-15] MEDS: MIRTAZAPINE 15 MG TABLET 45 MG PO (21:13)
[2024-11-15] MEDS: PARoxetine HCL 10 MG TABLET 20 MG PO (21:13)
[2024-11-15] MEDS: INSULIN GLARGINE (Lantus) 5 UNIT/0.05 ML (PER 5 UNITS) 10 UNIT SC (21:13)
[2024-11-15] MEDS: INSULIN LISPRO (AdmeLOG) 1 UNIT/0.01 ML UNIT SC (21:14)
[2024-11-16] VITALS (10 sets, daily range): BP systolic 114–139; BP diastolic 73–89; PULSE 68–96; RESP 12–24; TEMP 36.1; O2SAT 95–100; BMI 41.8
[2024-11-16] MEDS: ALBUTEROL/IPRATROPIUM (Duoneb) RT SOL 3 ML NEBU INH ×2 (01:43→07:38)
[2024-11-16] MEDS: MUPIROCIN OINT 2% 15 GM TUBE TOP ×3 (06:01→22:23)
[2024-11-16 06:36] LABS: Basophils # (Auto) 0.1 Thou/mm3 (0.0-0.2); Basophils % (Auto) 1 % (0-2.5); Lymphocytes # (Auto) 1.7 Thou/mm3 (1.0-4.8); Nucleated Red Blood Cell % 0 /100 WBC (0)
[2024-11-16 06:50] LABS: Eosinophils # (Auto) 0.4 Thou/mm3 (0.0-0.5); Eosinophils % (Auto) 5 % (0-10); Hematocrit 36.3 % (41.0-53.0); Hemoglobin 11.7 g/dL (13.5-16.0); Immature Granulocytes % (Auto) 1 % (0-0); Immature Granulocytes Auto 0.05 Thou/mm3 (0.00-0.00); Lymphocytes % (Auto) 22 % (10-50); Mean Corpuscular HGB Conc 32.2 g/dl (31.0-37.0); Mean Corpuscular Hemoglobin 27.7 pg (25.0-35.0); Mean Corpuscular Volume 86 fL (80-100); Monocytes # (Auto) 0.6 Thou/mm3 (0.0-0.8); Monocytes % (Auto) 8 % (0-12); Neutrophils # (Auto) 4.9 Thou/mm3 (1.8-7.7); Neutrophils % (Auto) 63 % (37-80); Platelet Count 229 Thou/mm3 (140-440); RDW Standard Deviation 43.3 fL (35.1-43.9); Red Blood Count 4.23 Miln/mm3 (4.50-5.90); White Blood Count 7.7 Thou/mm3 (3.8-10.6)
[2024-11-16 07:16] LABS: Alanine Aminotransferase 23 U/L (10-49); Albumin, Serum 3.8 gm/dL (3.4-4.8); Albumin/Globulin Ratio 1.1 (1.2-2.2); Alkaline Phosphatase 64 U/L (46-116); Anion Gap 5 (7-16); Aspartate Amino Transferase 22 U/L (0-34); BUN/Creatinine Ratio 21 Ratio (12-20); Bilirubin,Total 0.5 mg/dL (0.3-1.2); Blood Urea Nitrogen 29 mg/dL (9-23); Calcium 9.3 mg/dL (8.3-10.6); Calcium (Corrected) 9.5 mg/dL (8.5-10.1); Carbon Dioxide 29.4 mMol/L (20.0-31.0); Chloride 104 mMol/L (98-107); Creatinine (Component) 1.4 mg/dL (0.6-1.3); Estimated Creatinine Clearance 81.8 mL/min (>60); Globulin 3.4 gm/dL (2.3-3.5); Glucose 132 mg/dL (74-106); Magnesium 2.2 mg/dL (1.6-2.6); Osmolality,Calculated 283 (275-295); Potassium 4.7 mMol/L (3.4-5.1); Sodium 138 mMol/L (136-145); Total Protein 7.2 gm/dL (5.7-8.2); eGFR 56 See Note
[2024-11-16] MEDS: DILTIAZEM CD 120 MG CAPCR PO (08:35)
[2024-11-16] MEDS: Furosemide 20 MG TABLET PO (08:35)
[2024-11-16] MEDS: POLYETHYLENE GLYCOL 17 GM PACKET PO (08:35)
[2024-11-16] MEDS: TAMSULOSIN HCL 0.4 MG CAPSULE PO (08:35)
--- NOTE | 2024-11-16 08:39 | XR_ITS ---
Examination: Venous access removal permanent tunneled right internal jugular dialysis catheter AP chest x2 Fluoroscopy Exam date and time: November 16, 2024 1425 hours INDICATIONS: No longer needed for dialysis, renal failure recovery TECHNIQUE AND FINDINGS: Informed consent provided. Timeout performed. Skin prepped over the entrance site of the permanent tunneled dialysis catheter and sterile drape applied maximum sterile barrier technique hand hygiene 1% lidocaine administered for local anesthesia Careful dissection around the permanent tunneled dialysis catheter was successful removal Estimated blood loss 2 cc Spot chest film at completion procedure no longer demonstrates the dialysis catheter Fluoroscopy 10 seconds 2 spot films IMPRESSION: Successful venous access removal permanent tunneled dialysis catheter
--- NOTE | 2024-11-16 11:13 | PC.RT ---
Spoke with Dr. Saez and confirmed changing pt tx to prn.
[2024-11-16] MEDS: DAPTOMYCIN IV (12:07)
[2024-11-16] MEDS: SODIUM CHLORIDE 0.9% IV (12:07)
[2024-11-16] MEDS: ACETAMINOPHEN 325 MG TABLET 650 MG PO (12:07)
[2024-11-16] MEDS: INSULIN LISPRO (AdmeLOG) 1 UNIT/0.01 ML UNIT SC ×2 (12:27→20:42)
[2024-11-16] MEDS: SODIUM CHLORIDE 0.9% 1000 ML 500 ML 999 ML IV (12:37)
--- NOTE | 2024-11-16 14:05 | ESPR_ITS ---
Documentation for date of: 11/16/24 Subjective Subjective Interval history: Mr. Bella is a 64-year-old male with MHx of CKD since July 2024, newly on HD TTS, T2DM, HTN, CHF, CAD, COPD, A-fib, seizure disorder, HLD, morbid obesity, presenting with SOB associated with fever, chills, nausea and vomiting and headaches. Complained of urinary symptoms including urgency and frequency. He was admitted for AHRF in setting of sepsis pneumonia. He has been on HD TTS since July 2024 when he developed an ARIANA during admission. Currently labs are significant for sodium 135, CR 1.6 > 1.9, BUN 35, GFR 48 > 39, GLUCOSE 270, A1c 6.9, TB 1.3, troponin 0.046 > 0.066, BNP 239, cholesterol 127, WBC 29.9, Hgb 12.5, PLT 213. Showing positive leukocyte ESTRACE, RBC 5, WBC 9, protein 1+. CXR suspicious for pneumonia in the right base. EKG showing A-fib with HR 61, no acute ST changes. 11/12/2024 examined at bedside. Denies fever, chills, headaches, chest pain, sob, cough, GI or urinary symptoms. XARELTO on hold for HD cath removal. Renal function normal with CR 1.2, GFR >60, BUN 31. On LASIX 20 mg daily, urine out good, LE edema improved. 11/13/2024 examined at bedside. No new or worsening of symptoms. Pending HD cath removal, likely Friday. Labs stable, including renal panel. CR 1.1, BUN 25, EGFR >60. Urine output adequate with LASIX, no edema on exam. 11/14/2024 examined at bedside. Denies fever, chills, headaches, chest pain, sob, cough, GI or urinary symptoms. Renal function stable, CR 1.3, BUN 29, EGFR >60, good urine output. 11/16/2024 examined at bedside. Doing well today. Denies new symptoms or worsening of symptoms. vitals WNL. He had slight increase in creatinine from 1.3-1.4, likely from dehydration on LASIX. Agree with 500 cc bolus. Encourage oral fluids. No signs of lower extremity edema on exam. Will change LASIX to 20 every other day instead. Exam Vital Signs Temp Pulse Resp BP Pulse Ox O2 Del Method O2 Flow Rate 96.9 F 74 17 130/84 97 Room Air 1 11/16/24 12:00 11/16/24 12:00 11/16/24 12:00 11/16/24 12:00 11/16/24 12:00 11/16/24 12:00 11/14/24 12:00 FiO2 30 11/16/24 01:43 Narrative Exam General: Elderly male, obese, no acute distress, cooperative HEENT: NCAT, No JVD noted. Mucosa moist. Pupils are equal and reactive to light bilaterally Cardiovascular: Normal S1 and S2. Regular rate and rhythm. Respiratory: Lungs are clear to auscultation bilaterally. No wheezing or crackles heard. Abdomen: Soft, nontender, not distended, normal bowel sounds. Skin: Warm to touch, dry, lower extremity venous stasis discoloration, TDC Musculoskeletal: No gross injuries. Able to move all 4 extremities. No pitting edema. Neuro: Alert and oriented x3. No focal neuro deficits. Psych: Normal affect and mood Objective Labs 11/16/24 06:10 11/16/24 06:10 Labs: Laboratory Results - last 24 hr 11/16/24 06:10 WBC 7.7 RBC 4.23 L Hgb 11.7 L Hct 36.3 L MCV 86 MCH 27.7 MCHC 32.2 RDW Std Deviation 43.3 Plt Count 229 Neut % (Auto) 63 Lymph % (Auto) 22 [place] % (Auto) 8 Eos % (Auto) 5 Baso % (Auto) 1 Neut # (Auto) 4.9 Lymph # (Auto) 1.7 [place] # (Auto) 0.6 Eos # (Auto) 0.4 Baso # (Auto) 0.1 Immature Gran # (Auto) 0.05 H Absolute Nucleated RBC 0.00 Immature Gran % 1 H Nucleated RBC % 0 Sodium 138 Potassium 4.7 Chloride 104 Carbon Dioxide 29.4 Anion Gap 5 L BUN 29 H Creatinine 1.4 H Estim Creat Clear Calc 81.8 eGFR 56 L BUN/Creatinine Ratio 21 H Glucose 132 H Calculated Osmolality 283 Calcium 9.3 Corrected Calcium 9.5 Phosphorus 5.0 Magnesium 2.2 Total Bilirubin 0.5 AST 22 ALT 23 Alkaline Phosphatase 64 Total Protein 7.2 Albumin 3.8 Globulin 3.4 Albumin/Globulin Ratio 1.1 L ABG Interpretation ABG results: 11/09/24 04:38 ABG pH 7.35 ABG pCO2 49 H ABG pO2 124 H ABG HCO3 27 H ABG O2 Saturation 99 H ABG Base Excess 1 Quality Measures Quality Measures sepsis Current suspected stage: sepsis Possible source: pulmonary Blood cultures ordered: yes Antibiotic ordered: Yes Assessment & Plan Assessment Current Active Medications: Generic Name Dose Route Start Last Admin Trade Name Freq PRN Reason Stop Dose Admin Acetaminophen 650 mg 11/09/24 01:53 Acetaminophen 325 Mg Tablet PO 12/09/24 01:52 Q6H PRN Fever >100.4 Acetaminophen 650 mg 11/09/24 01:53 11/16/24 12:07 Acetaminophen 325 Mg Tablet PO 12/09/24 01:52 650 mg Q6H PRN Administration PAIN SCALE 1-3 (mild Albuterol/Ipratropium 3 ml 11/09/24 14:20 Albuterol/Ipratropium (Duoneb) Rt Aspen 3 Ml Nebu INH 12/09/24 18:59 Q6HRRT PRN WHEEZING Aspirin 81 mg 11/09/24 09:00 11/15/24 08:18 Aspirin Ec 81 Mg Tabec PO 12/09/24 08:59 81 mg QDAY ASHWIN Administration Bisacodyl 10 mg 11/09/24 02:03 Bisacodyl 10 Mg Supp [place] 12/09/24 02:14 Q72H PRN constipation Protocol Dextrose 25 ml 11/09/24 01:53 Dextrose 50%-Water Inj 50 Ml Syringe IV 12/09/24 01:52 Q15MIN PRN BG 50-70 responsive npo pt Dextrose 50 ml 11/09/24 10:46 Dextrose 50%-Water Inj 50 Ml Syringe IV 12/09/24 10:45 Q15MIN PRN BG <50 OR BG <70 & pt unresponsive Diltiazem HCl 120 mg 11/09/24 09:00 11/16/24 08:35 Diltiazem Cd 120 Mg Capcr PO 12/09/24 08:59 120 mg QDAY ASHWIN Administration Furosemide 20 mg 11/11/24 09:00 11/16/24 08:35 Furosemide 20 Mg Tablet PO 12/11/24 08:59 20 mg QAM ASHWIN Administration Glucagon 1 mg 11/09/24 10:46 Glucagon Inj 1 Mg Vial IM Q15MIN PRN BG <70, and no IV access Daptomycin 1,000 mg/ Sodium 50 mls @ 100 mls/hr 11/15/24 12:30 11/16/24 12:07 Chloride IV 11/22/24 12:29 100 mls/hr Q24H ASHWIN Administration Insulin Glargine 10 unit 11/09/24 21:00 11/15/24 21:13 Insulin Glargine (Lantus) 5 Unit/0.05 Ml (Per 5 Units) SC 12/09/24 20:59 10 unit HS ASHWIN Administration Insulin Human Lispro 3 unit 11/09/24 11:30 11/15/24 16:55 Insulin Lispro (Admelog) 1 Unit/0.01 Ml Unit SC 12/09/24 11:29 Not Given ACHS ASHWIN Insulin Human Lispro 0 unit 11/09/24 11:30 11/16/24 12:27 Insulin Lispro (Admelog) 1 Unit/0.01 Ml Unit SC 12/09/24 11:29 1 unit ACHS ASHWIN Administration Protocol Magnesium Hydroxide 30 ml 11/09/24 02:03 Milk Of Magnesia Susp 30 Ml Udc PO 12/09/24 02:14 Q72H PRN Constipation Protocol Mirtazapine 45 mg 11/09/24 21:00 11/15/24 21:13 Mirtazapine 15 Mg Tablet PO 12/09/24 20:59 45 mg HS ASHWIN Administration Mupirocin 0 gm 11/10/24 22:00 11/16/24 13:50 Mupirocin Oint 2% 15 Gm Tube TOP 11/17/24 21:59 15 gm TID ASHWIN Administration Ondansetron HCl 4 mg 11/09/24 01:53 Ondansetron Inj 2 Mg/Ml Inj 2 Ml IV 12/09/24 01:52 Q6H PRN NAUSEA OR VOMITING Protocol Paroxetine HCl 20 mg 11/09/24 21:00 11/15/24 21:13 Paroxetine Hcl 10 Mg Tablet PO 12/09/24 20:59 20 mg HS ASHWIN Administration Polyethylene Glycol 17 gm 11/09/24 09:00 11/16/24 08:35 Polyethylene Glycol 17 Gm Packet PO 12/09/24 08:59 17 gm QDAY ASHWIN Administration Risperidone 3 mg 11/09/24 21:00 11/15/24 21:13 Risperidone 1 Mg Tablet PO 12/09/24 20:59 3 mg HS ASHWIN Administration Sennosides 1 tab 11/09/24 02:09 Senna Tablet PO 12/09/24 02:08 QDAY PRN CONSTIPATION Protocol Tamsulosin HCl 0.4 mg 11/09/24 09:00 11/16/24 08:35 Tamsulosin Hcl 0.4 Mg Capsule PO 12/09/24 08:59 0.4 mg QDAY ASHWIN Administration Plan 40-year-old male with MHx of CKD since July 2024, newly on HD TTS, T2DM, HTN, CHF, CAD, COPD, A-fib, seizure disorder, HLD, morbid obesity, presenting with SOB associated with fever, chills, nausea and vomiting and headaches. Complained of urinary symptoms including urgency and frequency. He was admitted for AHRF in setting of sepsis pneumonia. Has slight increase in creatinine likely secondary to LASIX and dehydration. Received 500 cc NS bolus. Will switch LASIX 20 mg to every other day, next dose 11/18/2024. ARIANA -markedly improved. Patient came off dialysis. Awaiting catheter removal Renal function stable, CR 1.3, BUN 29, EGFR >60, good urine output. Agree with 500 cc NS bolus Continue with LASIX 20 mg Q48H (next dose to start 11/18) Sepsis resolved Catheter related MRSA bacteremia. Pending dialysis catheter removal Complicated UTI Diabetes mellitus type 2 Hypomagnesemia Atrial fibrillation-anticoagulation on hold NSTEMI, likely type II-asymptomatic CAD CHF Depression Coagulopathy - Managed by primary team Thank you for the opportunity to participate in the patient's care. Case was discussed with attending, Dr. Bermeo. Robina Galvan DO PGYI Attending Provider Attestation/Addendum Patient seen and examined with resident physician Dr. Quarles. Note reviewed, agree with findings and recommendations. Patient had been receiving dialysis for the last 3 months for cardiorenal syndrome. Started to make urine. On low-dose Lasix. Clinically euvolemic. Creatinine markedly improved to 1.1. Hold dialysis. Admitted with low blood pressure-from catheter related bacteremia. Blood cultures came back positive for MRSA. DCed dialysis catheter. Xarelto resume Lasix every other day
[2024-11-16 14:22] LABS: INR 1.1 (0.9-1.3); Partial Thromboplastin Time 28.2 Seconds (22.0-36.0); Prothrombin Time 11.7 Seconds (9.0-12.2)
--- NOTE | 2024-11-16 16:28 | ESPR_ITS ---
<Statement entered by Carlos Alberto Ramey MD - 11/17/24 08:56> I discussed with and supervised the internet merchant physician involved in the care of this patient. Patient assessment and plan was discussed with entire medicine team, including my attending. I agree with the assessment and plan as documented by internet merchant doctor. Patient care was discussed with my attending physician Dr. Bipin Ramey, PGY-2 Documentation for date of: 11/16/24 Subjective Subjective Interval history: Patient examined at bedside. No events overnight, no major complaints. Patient remains in A-fib with rate 80?90. Slight increase in Cr to 1.34. Nephrology notified and are back on case. He was given 500cc bolus and Lasix 20mg daily will now be every other day. Otherwise labs unremarkable. Sugars well controlled. TDC removed today--IR will place PICC tomorrow. Daptomycin until November 24 for treatment of MRSA bacteremia, per ID Cefepime for HAP was discontinued by ID. Final blood cultures from 11/11 are negative. Holding aspirin and Xarelto. Exam Vital Signs Temp Pulse Resp BP Pulse Ox O2 Del Method O2 Flow Rate 96.9 F 74 17 130/84 97 Room Air 1 11/16/24 12:00 11/16/24 12:00 11/16/24 12:00 11/16/24 12:00 11/16/24 12:00 11/16/24 12:00 11/14/24 12:00 FiO2 30 11/16/24 01:43 Narrative Exam General: Elderly male, obese, no acute distress, cooperative HEENT: NCAT, No JVD noted. Mucosa moist. Pupils are equal and reactive to light bilaterally Cardiovascular: Normal S1 and S2. Regular rate and rhythm. Respiratory: Lungs are clear to auscultation bilaterally. No wheezing or crackles heard. Abdomen: Soft, nontender, not distended, normal bowel sounds. Skin: Warm to touch, dry, lower extremity venous stasis discoloration, TDC Musculoskeletal: No gross injuries. Able to move all 4 extremities. No pitting edema. Neuro: Alert and oriented x3. No focal neuro deficits. Psych: Normal affect and mood Objective Labs 11/16/24 06:10 11/16/24 06:10 Labs: Laboratory Results - last 24 hr 11/16/24 06:10 WBC 7.7 RBC 4.23 L Hgb 11.7 L Hct 36.3 L MCV 86 MCH 27.7 MCHC 32.2 RDW Std Deviation 43.3 Plt Count 229 Neut % (Auto) 63 Lymph % (Auto) 22 [place] % (Auto) 8 Eos % (Auto) 5 Baso % (Auto) 1 Neut # (Auto) 4.9 Lymph # (Auto) 1.7 [place] # (Auto) 0.6 Eos # (Auto) 0.4 Baso # (Auto) 0.1 Immature Gran # (Auto) 0.05 H Absolute Nucleated RBC 0.00 Immature Gran % 1 H Nucleated RBC % 0 PT 11.7 D INR 1.1 APTT 28.2 D Sodium 138 Potassium 4.7 Chloride 104 Carbon Dioxide 29.4 Anion Gap 5 L BUN 29 H Creatinine 1.4 H Estim Creat Clear Calc 81.8 eGFR 56 L BUN/Creatinine Ratio 21 H Glucose 132 H Calculated Osmolality 283 Calcium 9.3 Corrected Calcium 9.5 Phosphorus 5.0 Magnesium 2.2 Total Bilirubin 0.5 AST 22 ALT 23 Alkaline Phosphatase 64 Total Protein 7.2 Albumin 3.8 Globulin 3.4 Albumin/Globulin Ratio 1.1 L ABG Interpretation ABG results: 11/09/24 04:38 ABG pH 7.35 ABG pCO2 49 H ABG pO2 124 H ABG HCO3 27 H ABG O2 Saturation 99 H ABG Base Excess 1 Quality Measures Quality Measures sepsis Current suspected stage: ruled out Possible source: pulmonary Blood cultures ordered: yes Antibiotic ordered: Yes Assessment & Plan Assessment Current Active Medications: Generic Name Dose Route Start Last Admin Trade Name Freq PRN Reason Stop Dose Admin Acetaminophen 650 mg 11/09/24 01:53 Acetaminophen 325 Mg Tablet PO 12/09/24 01:52 Q6H PRN Fever >100.4 Acetaminophen 650 mg 11/09/24 01:53 11/16/24 12:07 Acetaminophen 325 Mg Tablet PO 12/09/24 01:52 650 mg Q6H PRN Administration PAIN SCALE 1-3 (mild Albuterol/Ipratropium 3 ml 11/09/24 14:20 Albuterol/Ipratropium (Duoneb) Rt Aspen 3 Ml Nebu INH 12/09/24 18:59 Q6HRRT PRN WHEEZING Aspirin 81 mg 11/09/24 09:00 11/15/24 08:18 Aspirin Ec 81 Mg Tabec PO 12/09/24 08:59 81 mg QDAY ASHWIN Administration Bisacodyl 10 mg 11/09/24 02:03 Bisacodyl 10 Mg Supp [place] 12/09/24 02:14 Q72H PRN constipation Protocol Dextrose 25 ml 11/09/24 01:53 Dextrose 50%-Water Inj 50 Ml Syringe IV 12/09/24 01:52 Q15MIN PRN BG 50-70 responsive npo pt Dextrose 50 ml 11/09/24 10:46 Dextrose 50%-Water Inj 50 Ml Syringe IV 12/09/24 10:45 Q15MIN PRN BG <50 OR BG <70 & pt unresponsive Diltiazem HCl 120 mg 11/09/24 09:00 11/16/24 08:35 Diltiazem Cd 120 Mg Capcr PO 12/09/24 08:59 120 mg QDAY ASHWIN Administration Furosemide 20 mg 11/18/24 09:00 Furosemide 20 Mg Tablet PO 12/18/24 08:59 Q48H ASHWIN Glucagon 1 mg 11/09/24 10:46 Glucagon Inj 1 Mg Vial IM Q15MIN PRN BG <70, and no IV access Daptomycin 1,000 mg/ Sodium 50 mls @ 100 mls/hr 11/15/24 12:30 11/16/24 12:07 Chloride IV 11/22/24 12:29 100 mls/hr Q24H ASHWIN Administration Insulin Glargine 10 unit 11/09/24 21:00 11/15/24 21:13 Insulin Glargine (Lantus) 5 Unit/0.05 Ml (Per 5 Units) SC 12/09/24 20:59 10 unit HS ASHWIN Administration Insulin Human Lispro 3 unit 11/09/24 11:30 11/15/24 16:55 Insulin Lispro (Admelog) 1 Unit/0.01 Ml Unit SC 12/09/24 11:29 Not Given ACHS ASHWIN Insulin Human Lispro 0 unit 11/09/24 11:30 11/16/24 12:27 Insulin Lispro (Admelog) 1 Unit/0.01 Ml Unit SC 12/09/24 11:29 1 unit ACHS ASHWIN Administration Protocol Magnesium Hydroxide 30 ml 11/09/24 02:03 Milk Of Magnesia Susp 30 Ml Udc PO 12/09/24 02:14 Q72H PRN Constipation Protocol Mirtazapine 45 mg 11/09/24 21:00 11/15/24 21:13 Mirtazapine 15 Mg Tablet PO 12/09/24 20:59 45 mg HS ASHWIN Administration Mupirocin 0 gm 11/10/24 22:00 11/16/24 13:50 Mupirocin Oint 2% 15 Gm Tube TOP 11/17/24 21:59 15 gm TID ASHWIN Administration Ondansetron HCl 4 mg 11/09/24 01:53 Ondansetron Inj 2 Mg/Ml Inj 2 Ml IV 12/09/24 01:52 Q6H PRN NAUSEA OR VOMITING Protocol Paroxetine HCl 20 mg 11/09/24 21:00 11/15/24 21:13 Paroxetine Hcl 10 Mg Tablet PO 12/09/24 20:59 20 mg HS ASHWIN Administration Polyethylene Glycol 17 gm 11/09/24 09:00 11/16/24 08:35 Polyethylene Glycol 17 Gm Packet PO 12/09/24 08:59 17 gm QDAY ASHWIN Administration Risperidone 3 mg 11/09/24 21:00 11/15/24 21:13 Risperidone 1 Mg Tablet PO 12/09/24 20:59 3 mg HS ASHWIN Administration Sennosides 1 tab 11/09/24 02:09 Senna Tablet PO 12/09/24 02:08 QDAY PRN CONSTIPATION Protocol Tamsulosin HCl 0.4 mg 11/09/24 09:00 11/16/24 08:35 Tamsulosin Hcl 0.4 Mg Capsule PO 12/09/24 08:59 0.4 mg QDAY ASHWIN Administration Plan Andrew Bella is 64-year-old male with past medical history significant for hypertension, diabetes mellitus type 2, CHF, CAD, COPD, A-fib, seizure disorder, hyperlipidemia, morbid obesity and ARIANA on hemodialysis TTS schedule was brought in by ambulance to ED after developing SOB for 1 day. The patient is admitted to [facility] unit for further management of acute hypoxic respiratory failure secondary to sepsis secondary to healthcare associated pneumonia. #MRSA bacteremia #Healthcare associated pneumonia Patient presented with SOB, has been on [facility], and was requiring 5 L oxygen via facemask for proper oxygen saturation. Met 3/4 SIRS criteria with temperature 102.9 and white count of 27.4, tachypnea with source of infection as right-sided pneumonia and UTI. End organ damage evidenced by ARIANA. Did not receive 30 cc/kg of crystalloid fluid bolus because of concern for CHF in ED Urine culture negative. Blood cultures blood cultures on 11/08 grew MRSA in both sets Repeat cultures on 11/09 was demonstrating Staphylococcus simulans, Final blood cultures from 11/11 are negative. Vancomycin (11/11-) TTE 11/12: Poor quality images. No clear valvular vegetations. Normal LV size and function. Estimated EF 55-60%. Mild LVH. Diastolic dysfunction present but cannot be graded because of the A-fib. Plan: -ID recs: Will switch over to daptomycin until November 24 (11/15-11/24) for treatment of MRSA bacteremia -TDC has been removed -IR will place PICC tomorrow -DuoNeb every 6 hourly scheduled -Daily a.m. labs for CBC, CMP and electrolytes -Oxygen as needed #Hx MARK Patient demand increasing at night with apneic episodes reported by nursing. Further questioning patient stated that he has been previously diagnosed with MARK about 5 years ago. Does not endorse using machine at home. ? Start BiPAP at bedtime ? Patient will need to repeat sleep outpatient #History of insulin-dependent type 2 diabetes, well controlled On admission initial glucose 242. Last A1c 7.1 on 08/10/24 A1c on this admission 6.9 -Held home medications -Bedside blood glucose checks ACHS -Continue 10 units glargine ?3 units lispro TID -Insulin lispro sliding scale -Carb consistent low diet #Hypomagnesemia Presented with magnesium level of 1.5 - Received 4 g magnesium sulfate - Daily a.m. labs for magnesium, replete as needed #Atrial fibrillation Patient has history of atrial fibrillation - resume diltiazem ER 120 Mg daily - hold rivaroxaban 20 Mg daily until TDC removed and PICC placed - Daily a.m. labs for electrolytes, maintain potassium greater than 4 and magnesium greater than 2 #NSTEMI, likely type II Presented with troponin of 0.046 Appears that patient's baseline troponin is slightly elevated, may be due to end-stage renal disease -delta acheived #Coronary artery disease by history #CHF with preserved ejection fraction, EF 55 to 60%, diastolic heart failure ECHO: Poor quality images. No clear valvular vegetations. Consider REECE if high clinical index of suspicion. Normal LV size and function. Estimated EF 55-60%. Mild LVH. Diastolic dysfunction present but cannot be graded because of the A-fib. Moderately dilated RV. Normal RV function. Elevated RVSP. Mild biatrial dilatation. Right greater than left. Mild MR. Trace TR -Continue PO Lasix 20mg overy other day starting tomorrow - holding aspirin 81 Mg daily until TDC removed and PICC placed - Strict intake and output - Daily weights - Fluid restriction 1500 cc #Depression -mirtazapine 45 Mg daily at night -paroxetine 20 Mg daily #Coagulopathy PT 13.7, APTT 21.1 Secondary to sepsis -platelets downtrending: stop heparin and repeat CBC - Monitor daily a.m. labs for PT and PTT #Acute hypoxic respiratory failure-resolved #Lactic acidosis-resolved #ARIANA-resolved Health maintenance: Dispo: MRSA bacteremia, PICC line tomorrow DVT prophylaxis: not indicated Diet: Renal diet Code: Full code The patient's management plan was discussed with my attending physician Dr. Voss. Shanae Pandya, PGY1 Attending Provider Attestation/Addendum 64-year-old male patient with coronary artery disease, atrial fibrillation, CHF admitted for MRSA pneumonia. The patient will have PICC line today. He will continue on IV daptomycin. Discussed with housestaff
[2024-11-16] MEDS: risperiDONE 1 MG TABLET 3 MG PO (20:37)
[2024-11-16] MEDS: INSULIN GLARGINE (Lantus) 5 UNIT/0.05 ML (PER 5 UNITS) 10 UNIT SC (20:37)
[2024-11-16] MEDS: PARoxetine HCL 10 MG TABLET 20 MG PO (20:37)
[2024-11-16] MEDS: MIRTAZAPINE 15 MG TABLET 45 MG PO (20:37)
[2024-11-17] VITALS (10 sets, daily range): BP systolic 118–155; BP diastolic 69–77; PULSE 64–88; RESP 12–23; TEMP 36.1–36.6; O2SAT 96–99
[2024-11-17] MEDS: MUPIROCIN OINT 2% 15 GM TUBE TOP ×2 (05:32→13:50)
[2024-11-17 06:41] LABS: Basophils # (Auto) 0.1 Thou/mm3 (0.0-0.2); Basophils % (Auto) 1 % (0-2.5); Eosinophils # (Auto) 0.4 Thou/mm3 (0.0-0.5); Eosinophils % (Auto) 5 % (0-10); Hematocrit 36.6 % (41.0-53.0); Hemoglobin 11.7 g/dL (13.5-16.0); Immature Granulocytes % (Auto) 1 % (0-0); Immature Granulocytes Auto 0.05 Thou/mm3 (0.00-0.00); Lymphocytes # (Auto) 2.1 Thou/mm3 (1.0-4.8); Lymphocytes % (Auto) 28 % (10-50); Mean Corpuscular Hemoglobin 27.3 pg (25.0-35.0); Mean Corpuscular Volume 86 fL (80-100); Monocytes # (Auto) 0.6 Thou/mm3 (0.0-0.8); Monocytes % (Auto) 8 % (0-12); Neutrophils # (Auto) 4.2 Thou/mm3 (1.8-7.7); Neutrophils % (Auto) 57 % (37-80); Nucleated Red Blood Cell % 0 /100 WBC (0); Platelet Count 234 Thou/mm3 (140-440); RDW Standard Deviation 43.5 fL (35.1-43.9); Red Blood Count 4.28 Miln/mm3 (4.50-5.90); White Blood Count 7.3 Thou/mm3 (3.8-10.6)
[2024-11-17 07:26] LABS: Alanine Aminotransferase 24 U/L (10-49); Albumin, Serum 3.7 gm/dL (3.4-4.8); Albumin/Globulin Ratio 1.2 (1.2-2.2); Alkaline Phosphatase 60 U/L (46-116); Anion Gap 9 (7-16); Aspartate Amino Transferase 25 U/L (0-34); BUN/Creatinine Ratio 24 Ratio (12-20); Bilirubin,Total 0.5 mg/dL (0.3-1.2); Blood Urea Nitrogen 24 mg/dL (9-23); Calcium (Corrected) 9.2 mg/dL (8.5-10.1); Carbon Dioxide 25.9 mMol/L (20.0-31.0); Chloride 105 mMol/L (98-107); Estimated Creatinine Clearance 114.9 mL/min (>60); Globulin 3.1 gm/dL (2.3-3.5); Glucose 108 mg/dL (74-106); Magnesium 2.1 mg/dL (1.6-2.6); Osmolality,Calculated 284 (275-295); Phosphorous 4.4 mg/dL (2.4-5.1); Potassium 4.4 mMol/L (3.4-5.1); Sodium 140 mMol/L (136-145); Total Protein 6.8 gm/dL (5.7-8.2); eGFR > 60 See Note
[2024-11-17] MEDS: DILTIAZEM CD 120 MG CAPCR PO (08:26)
[2024-11-17] MEDS: TAMSULOSIN HCL 0.4 MG CAPSULE PO (08:26)
[2024-11-17] MEDS: POLYETHYLENE GLYCOL 17 GM PACKET PO (08:27)
--- NOTE | 2024-11-17 08:40 | XR_ITS ---
Examination: Ultrasound-guided needle placement left brachial vein. Dual-lumen central line placement (PICC line). Fluoroscopy AP chest, portable 3 views Exam date and time:November 17, 2024 1110 hours INDICATIONS: Need for long-term intravenous antibiotic therapy A timeout was completed verifying correct patient, procedure, site, positioning Informed consent provided Technique: The patient's site was prepped and draped in sterile fashion. Maximum Sterile Barrier Technique used including cap, mask, sterile gown, sterile gloves, and sterile full body drape. If ultrasound technique used: sterile gel and sterile probe covers. Hand Hygiene performed using proper scrub, soap and water, or alcohol-based hand rub. Ultrasound site right portable apparatus utilized to confirm patency of the left brachial vein Utilizing ultrasonographic guidance successful 21-gauge needle puncture into the left brachial vein Ultrasound images recorded and stored. 5 cc 1% lidocaine administered for local anesthetic. Successful micropuncture with a 21-gauge needle is performed. 0.18 wire guide is then introduced into the SVC under fluoroscopic guidance. Dual-lumen catheter dilator is then introduced, followed by the catheter in the SVC and proper position under fluoroscopic guidance. Successful aspiration of blood and flushing with heparinized saline is then performed in the 2 venous limbs. The catheter sutured in place. Findings: Under fluoroscopy, the tip of the catheter is in good position in the vena cava. Portable chest x-ray, post line placement is ordered. Estimated blood loss 3 cc The patient tolerated the procedure well and was in stable and satisfactory condition at completion of the procedure Impression: Successful ultrasound-guided needle placement left brachial vein Successful placement of dual lumen central line, percutaneous Fluoroscopy 0.5 minute radiation dose 19.95 milligray 3 spot fluoroscopic chest films. AP chest completion procedure demonstrates satisfactory position central line. May use central line.
--- NOTE | 2024-11-17 08:50 | PD.RESPRO ---
Documentation for date of: 11/17/24 Subjective Subjective Interval history: Mr. Bella is a 64-year-old male with MHx of CKD since July 2024, newly on HD TTS, T2DM, HTN, CHF, CAD, COPD, A-fib, seizure disorder, HLD, morbid obesity, presenting with SOB associated with fever, chills, nausea and vomiting and headaches. Complained of urinary symptoms including urgency and frequency. He was admitted for AHRF in setting of sepsis pneumonia. He has been on HD TTS since July 2024 when he developed an ARIANA during admission. Currently labs are significant for sodium 135, CR 1.6 > 1.9, BUN 35, GFR 48 > 39, GLUCOSE 270, A1c 6.9, TB 1.3, troponin 0.046 > 0.066, BNP 239, cholesterol 127, WBC 29.9, Hgb 12.5, PLT 213. Showing positive leukocyte ESTRACE, RBC 5, WBC 9, protein 1+. CXR suspicious for pneumonia in the right base. EKG showing A-fib with HR 61, no acute ST changes. 11/12/2024 examined at bedside. Denies fever, chills, headaches, chest pain, sob, cough, GI or urinary symptoms. XARELTO on hold for HD cath removal. Renal function normal with CR 1.2, GFR >60, BUN 31. On LASIX 20 mg daily, urine out good, LE edema improved. 11/13/2024 examined at bedside. No new or worsening of symptoms. Pending HD cath removal, likely Friday. Labs stable, including renal panel. CR 1.1, BUN 25, EGFR >60. Urine output adequate with LASIX, no edema on exam. 11/14/2024 examined at bedside. Denies fever, chills, headaches, chest pain, sob, cough, GI or urinary symptoms. Renal function stable, CR 1.3, BUN 29, EGFR >60, good urine output. 11/16/2024 examined at bedside. Doing well today. Denies new symptoms or worsening of symptoms. vitals WNL. He had slight increase in creatinine from 1.3-1.4, likely from dehydration on LASIX. Agree with 500 cc bolus. Encourage oral fluids. No signs of lower extremity edema on exam. Will change LASIX to 20 every other day instead. 11/17/24 patient was seen and examined in telemetry today. There were no major overnight events and patient feels well this morning. Creatinine improved to 1.0. Will continue with Lasix 20 every other day. Exam Vital Signs Temp Pulse Resp BP Pulse Ox O2 Del Method O2 Flow Rate 97.9 F 88 23 H 121/70 98 BiPAP 1 11/17/24 04:00 11/17/24 08:26 11/17/24 07:55 11/17/24 08:26 11/17/24 07:55 11/17/24 04:00 11/14/24 12:00 FiO2 30 11/17/24 07:55 Narrative Exam Constitutional: Well nourished and in no acute distress CVS: RRR, S1 and S2 present, no murmurs, rubs or gallops . RESP: CTAB, no SOB, no rales, rhonchi or wheezing. No respiratory Distress GI: Normal BS, Nontender/Nondistended. MSK: Full range of motion, No trauma or deformities or masses. Skin: Warm to touch, Dry. No rashes or lesions. No hematomas Neuro: circular sawyer stone II-XII grossly intact. Sensation grossly intact. Psych: (AAO) x3 . Appropriate mood and affect. Objective Labs 11/17/24 06:05 11/17/24 06:05 Labs: Laboratory Results - last 24 hr 11/16/24 11/17/24 06:10 06:05 WBC 7.3 RBC 4.28 L Hgb 11.7 L Hct 36.6 L MCV 86 MCH 27.3 MCHC 32.0 RDW Std Deviation 43.5 Plt Count 234 Neut % (Auto) 57 Lymph % (Auto) 28 [place] % (Auto) 8 Eos % (Auto) 5 Baso % (Auto) 1 Neut # (Auto) 4.2 Lymph # (Auto) 2.1 [place] # (Auto) 0.6 Eos # (Auto) 0.4 Baso # (Auto) 0.1 Immature Gran # (Auto) 0.05 H Absolute Nucleated RBC 0.00 Immature Gran % 1 H Nucleated RBC % 0 PT 11.7 D INR 1.1 APTT 28.2 D Sodium 140 Potassium 4.4 Chloride 105 Carbon Dioxide 25.9 Anion Gap 9 BUN 24 H Creatinine 1.0 Estim Creat Clear Calc 114.9 eGFR > 60 BUN/Creatinine Ratio 24 H Glucose 108 H Calculated Osmolality 284 Calcium 9.0 Corrected Calcium 9.2 Phosphorus 4.4 Magnesium 2.1 Total Bilirubin 0.5 AST 25 ALT 24 Alkaline Phosphatase 60 Total Protein 6.8 Albumin 3.7 Globulin 3.1 Albumin/Globulin Ratio 1.2 ABG Interpretation ABG results: 11/09/24 04:38 ABG pH 7.35 ABG pCO2 49 H ABG pO2 124 H ABG HCO3 27 H ABG O2 Saturation 99 H ABG Base Excess 1 Quality Measures Quality Measures sepsis Current suspected stage: ruled out Possible source: pulmonary Blood cultures ordered: yes Antibiotic ordered: No Assessment & Plan Assessment Current Active Medications: Generic Name Dose Route Start Last Admin Trade Name Freq PRN Reason Stop Dose Admin Acetaminophen 650 mg 11/09/24 01:53 Acetaminophen 325 Mg Tablet PO 12/09/24 01:52 Q6H PRN Fever >100.4 Acetaminophen 650 mg 11/09/24 01:53 11/16/24 12:07 Acetaminophen 325 Mg Tablet PO 12/09/24 01:52 650 mg Q6H PRN Administration PAIN SCALE 1-3 (mild Albuterol/Ipratropium 3 ml 11/09/24 14:20 Albuterol/Ipratropium (Duoneb) Rt Aspen 3 Ml Nebu INH 12/09/24 18:59 Q6HRRT PRN WHEEZING Aspirin 81 mg 11/09/24 09:00 11/15/24 08:18 Aspirin Ec 81 Mg Tabec PO 12/09/24 08:59 81 mg QDAY ASHWIN Administration Bisacodyl 10 mg 11/09/24 02:03 Bisacodyl 10 Mg Supp [place] 12/09/24 02:14 Q72H PRN constipation Protocol Dextrose 25 ml 11/09/24 01:53 Dextrose 50%-Water Inj 50 Ml Syringe IV 12/09/24 01:52 Q15MIN PRN BG 50-70 responsive npo pt Dextrose 50 ml 11/09/24 10:46 Dextrose 50%-Water Inj 50 Ml Syringe IV 12/09/24 10:45 Q15MIN PRN BG <50 OR BG <70 & pt unresponsive Diltiazem HCl 120 mg 11/09/24 09:00 11/17/24 08:26 Diltiazem Cd 120 Mg Capcr PO 12/09/24 08:59 120 mg QDAY ASHWIN Administration Furosemide 20 mg 11/18/24 09:00 Furosemide 20 Mg Tablet PO 12/18/24 08:59 Q48H ASHWIN Glucagon 1 mg 11/09/24 10:46 Glucagon Inj 1 Mg Vial IM Q15MIN PRN BG <70, and no IV access Daptomycin 1,000 mg/ Sodium 50 mls @ 100 mls/hr 11/15/24 12:30 11/16/24 12:07 Chloride IV 11/22/24 12:29 100 mls/hr Q24H ASHWIN Administration Insulin Glargine 10 unit 11/09/24 21:00 11/16/24 20:37 Insulin Glargine (Lantus) 5 Unit/0.05 Ml (Per 5 Units) SC 12/09/24 20:59 10 unit HS ASHWIN Administration Insulin Human Lispro 3 unit 11/09/24 11:30 11/15/24 16:55 Insulin Lispro (Admelog) 1 Unit/0.01 Ml Unit SC 12/09/24 11:29 Not Given ACHS ASHWIN Insulin Human Lispro 0 unit 11/09/24 11:30 11/17/24 07:39 Insulin Lispro (Admelog) 1 Unit/0.01 Ml Unit SC 12/09/24 11:29 Not Given ACHS ASHWIN Protocol Magnesium Hydroxide 30 ml 11/09/24 02:03 Milk Of Magnesia Susp 30 Ml Udc PO 12/09/24 02:14 Q72H PRN Constipation Protocol Mirtazapine 45 mg 11/09/24 21:00 11/16/24 20:37 Mirtazapine 15 Mg Tablet PO 12/09/24 20:59 45 mg HS ASHWIN Administration Mupirocin 0 gm 11/10/24 22:00 11/17/24 05:32 Mupirocin Oint 2% 15 Gm Tube TOP 11/17/24 21:59 1 applicatio TID ASHWIN Administration Ondansetron HCl 4 mg 11/09/24 01:53 Ondansetron Inj 2 Mg/Ml Inj 2 Ml IV 12/09/24 01:52 Q6H PRN NAUSEA OR VOMITING Protocol Paroxetine HCl 20 mg 11/09/24 21:00 11/16/24 20:37 Paroxetine Hcl 10 Mg Tablet PO 12/09/24 20:59 20 mg HS ASHWIN Administration Polyethylene Glycol 17 gm 11/09/24 09:00 11/17/24 08:27 Polyethylene Glycol 17 Gm Packet PO 12/09/24 08:59 17 gm QDAY ASHWIN Administration Risperidone 3 mg 11/09/24 21:00 11/16/24 20:37 Risperidone 1 Mg Tablet PO 12/09/24 20:59 3 mg HS ASHWIN Administration Sennosides 1 tab 11/09/24 02:09 Senna Tablet PO 12/09/24 02:08 QDAY PRN CONSTIPATION Protocol Tamsulosin HCl 0.4 mg 11/09/24 09:00 11/17/24 08:26 Tamsulosin Hcl 0.4 Mg Capsule PO 12/09/24 08:59 0.4 mg QDAY ASHWIN Administration Plan 40-year-old male with MHx of CKD since July 2024, newly on HD TTS, T2DM, HTN, CHF, CAD, COPD, A-fib, seizure disorder, HLD, morbid obesity, presenting with SOB associated with fever, chills, nausea and vomiting and headaches. Complained of urinary symptoms including urgency and frequency. He was admitted for AHRF in setting of sepsis pneumonia. Has slight increase in creatinine likely secondary to LASIX and dehydration. Received 500 cc NS bolus. Will switch LASIX 20 mg to every other day, next dose 11/18/2024. ARIANA -markedly improved. Patient came off dialysis. Awaiting catheter removal Renal function stable, CR 1.0, BUN 24, EGFR >60, good urine output. Continue with LASIX 20 mg Q48H (next dose to start 11/18) Sepsis resolved Catheter related MRSA bacteremia. Pending dialysis catheter removal Complicated UTI Diabetes mellitus type 2 Hypomagnesemia Atrial fibrillation-anticoagulation on hold NSTEMI, likely type II-asymptomatic CAD CHF Depression Coagulopathy - Managed by primary team Thank you for the opportunity to participate in the patient's care. I discussed patient's care with attending physician, Dr Jean-Claude White PGY3 Attending Provider Attestation/Addendum Patient seen and examined with resident physician Dr. Quarles. Note reviewed, agree with findings and recommendations. Patient had been receiving dialysis for the last 3 months for cardiorenal syndrome. Started to make urine. On low-dose Lasix. Clinically euvolemic. Creatinine markedly improved to 1.1. Hold dialysis. Admitted with low blood pressure-from catheter related bacteremia. Blood cultures came back positive for MRSA. DCed dialysis catheter. Xarelto resume Lasix every other day--renal estrada stable for discharge back to rehab.
--- NOTE | 2024-11-17 11:50 | PC.SS ---
Addendum entered by Bernadine Orosco 11/17/24 12:07: SS has sent updated inquiry to [facility] upon their requesting. Soniya at [facility] is aware pt is requiring IV antibiotic upon dc. Original Note: Follow up note: Pt is on IV antibiotic until November 24, 2024. Pt will have PICC line placed today. Pt will return to [facility] upon dc. Waiting for cultures.
[2024-11-17] MEDS: LIDOCAINE INJ PF 1% 5 ML VIAL INFL (12:45)
[2024-11-17] MEDS: HEPARIN SOD LOCK SYR 100 UNIT/ML 500 UNIT STFIELD (12:45)
[2024-11-17] MEDS: DAPTOMYCIN IV (13:50)
[2024-11-17] MEDS: SODIUM CHLORIDE 0.9% IV (13:50)
--- NOTE | 2024-11-17 16:20 | PD.IDPROG ---
Subjective Subjective Interval history: on dapto thru 11/24. 11/09 last pos for mrsa. 11/11 neg x 2 Exam Vital Signs Temp Pulse Resp BP Pulse Ox O2 Del Method O2 Flow Rate 97.0 F 88 18 121/70 99 Room Air 1 11/17/24 08:00 11/17/24 08:26 11/17/24 08:00 11/17/24 08:26 11/17/24 08:00 11/17/24 08:00 11/14/24 12:00 FiO2 30 11/17/24 07:55 Narrative Exam limited eval noted home soon by report Objective - Internal Medicine Labs 11/17/24 06:05 11/17/24 06:05 Labs: Laboratory Results - last 24 hr 11/17/24 06:05 WBC 7.3 RBC 4.28 L Hgb 11.7 L Hct 36.6 L MCV 86 MCH 27.3 MCHC 32.0 RDW Std Deviation 43.5 Plt Count 234 Neut % (Auto) 57 Lymph % (Auto) 28 [place] % (Auto) 8 Eos % (Auto) 5 Baso % (Auto) 1 Neut # (Auto) 4.2 Lymph # (Auto) 2.1 [place] # (Auto) 0.6 Eos # (Auto) 0.4 Baso # (Auto) 0.1 Immature Gran # (Auto) 0.05 H Absolute Nucleated RBC 0.00 Immature Gran % 1 H Nucleated RBC % 0 Sodium 140 Potassium 4.4 Chloride 105 Carbon Dioxide 25.9 Anion Gap 9 BUN 24 H Creatinine 1.0 Estim Creat Clear Calc 114.9 eGFR > 60 BUN/Creatinine Ratio 24 H Glucose 108 H Calculated Osmolality 284 Calcium 9.0 Corrected Calcium 9.2 Phosphorus 4.4 Magnesium 2.1 Total Bilirubin 0.5 AST 25 ALT 24 Alkaline Phosphatase 60 Total Protein 6.8 Albumin 3.7 Globulin 3.1 Albumin/Globulin Ratio 1.2 ABG Interpretation ABG results: 11/09/24 04:38 ABG pH 7.35 ABG pCO2 49 H ABG pO2 124 H ABG HCO3 27 H ABG O2 Saturation 99 H ABG Base Excess 1 Assessment & Plan A&P Narrative rolan 3, resolving per pt stasis dermatitis hx of obesity and other concerns. on disability for those reasons please remove hd line and if new line needed, then it can be placed any time as bc from 4/17 remain neg from 11/11. preferably in a new site as are neg from 11/11. ok to plan rx thru 11/24 with daptomycin daily instead of vanco. as dapto is less nephrotoxic than vanco. ok to finish rx as outpt off hd if plan is to stop hd rx finish rx as outpt with picc line. organism in bc was s to dapto Time Spent With Patient Time: Total time spent is greater than 50% in coordination of care (as documented) at patient's floor/unit and/or counseling patient:
--- NOTE | 2024-11-17 16:38 | ESPR_ITS ---
<Statement entered by Carlos Alberto Ramey MD - 11/18/24 14:33> I discussed with and supervised the management internship physician involved in the care of this patient. Patient assessment and plan was discussed with entire medicine team, including my attending. I agree with the assessment and plan as documented by management internship doctor. Patient care was discussed with my attending physician Dr. Bipin Ramey, PGY-2 Documentation for date of: 11/17/24 Subjective Subjective Interval history: Patient examined at bedside. No events overnight, no major complaints. Patient remains in A-fib with rate 80?90. Cr improved to 1.0 today after holding Lasix and giving fluids yesterday.. Lasix 20mg daily every other day. Otherwise labs unremarkable. Sugars well controlled. UO -430cc past 24hr. TDC removed yesterday--IR will place PICC today. Daptomycin until November 24 for treatment of MRSA bacteremia, per ID Cefepime for HAP was discontinued by ID. Final blood cultures from 11/11 are negative. Holding aspirin and Xarelto. Anticipate discharge next 24hrs. Exam Vital Signs Temp Pulse Resp BP Pulse Ox O2 Del Method O2 Flow Rate 97.0 F 88 18 121/70 99 Room Air 1 11/17/24 08:00 11/17/24 08:26 11/17/24 08:00 11/17/24 08:26 11/17/24 08:00 11/17/24 08:00 11/14/24 12:00 FiO2 30 11/17/24 07:55 Narrative Exam General: Elderly male, obese, no acute distress, cooperative HEENT: NCAT, No JVD noted. Mucosa moist. Pupils are equal and reactive to light bilaterally Cardiovascular: Normal S1 and S2. Regular rate and rhythm. Respiratory: Lungs are clear to auscultation bilaterally. No wheezing or crackles heard. Abdomen: Soft, nontender, not distended, normal bowel sounds. Skin: Warm to touch, dry, lower extremity venous stasis discoloration, TDC removeed Musculoskeletal: No gross injuries. Able to move all 4 extremities. No pitting edema. Neuro: Alert and oriented x3. No focal neuro deficits. Psych: Normal affect and mood Objective Labs 11/17/24 06:05 11/17/24 06:05 Labs: Laboratory Results - last 24 hr 11/17/24 06:05 WBC 7.3 RBC 4.28 L Hgb 11.7 L Hct 36.6 L MCV 86 MCH 27.3 MCHC 32.0 RDW Std Deviation 43.5 Plt Count 234 Neut % (Auto) 57 Lymph % (Auto) 28 [place] % (Auto) 8 Eos % (Auto) 5 Baso % (Auto) 1 Neut # (Auto) 4.2 Lymph # (Auto) 2.1 [place] # (Auto) 0.6 Eos # (Auto) 0.4 Baso # (Auto) 0.1 Immature Gran # (Auto) 0.05 H Absolute Nucleated RBC 0.00 Immature Gran % 1 H Nucleated RBC % 0 Sodium 140 Potassium 4.4 Chloride 105 Carbon Dioxide 25.9 Anion Gap 9 BUN 24 H Creatinine 1.0 Estim Creat Clear Calc 114.9 eGFR > 60 BUN/Creatinine Ratio 24 H Glucose 108 H Calculated Osmolality 284 Calcium 9.0 Corrected Calcium 9.2 Phosphorus 4.4 Magnesium 2.1 Total Bilirubin 0.5 AST 25 ALT 24 Alkaline Phosphatase 60 Total Protein 6.8 Albumin 3.7 Globulin 3.1 Albumin/Globulin Ratio 1.2 ABG Interpretation ABG results: 11/09/24 04:38 ABG pH 7.35 ABG pCO2 49 H ABG pO2 124 H ABG HCO3 27 H ABG O2 Saturation 99 H ABG Base Excess 1 Quality Measures Quality Measures sepsis Current suspected stage: ruled out Possible source: pulmonary Blood cultures ordered: yes Antibiotic ordered: Yes Assessment & Plan Assessment Current Active Medications: Generic Name Dose Route Start Last Admin Trade Name Freq PRN Reason Stop Dose Admin Acetaminophen 650 mg 11/09/24 01:53 Acetaminophen 325 Mg Tablet PO 12/09/24 01:52 Q6H PRN Fever >100.4 Acetaminophen 650 mg 11/09/24 01:53 11/16/24 12:07 Acetaminophen 325 Mg Tablet PO 12/09/24 01:52 650 mg Q6H PRN Administration PAIN SCALE 1-3 (mild Albuterol/Ipratropium 3 ml 11/09/24 14:20 Albuterol/Ipratropium (Duoneb) Rt Aspen 3 Ml Nebu INH 12/09/24 18:59 Q6HRRT PRN WHEEZING Aspirin 81 mg 11/09/24 09:00 11/15/24 08:18 Aspirin Ec 81 Mg Tabec PO 12/09/24 08:59 81 mg QDAY ASHWIN Administration Bisacodyl 10 mg 11/09/24 02:03 Bisacodyl 10 Mg Supp MA 12/09/24 02:14 Q72H PRN constipation Protocol Dextrose 25 ml 11/09/24 01:53 Dextrose 50%-Water Inj 50 Ml Syringe IV 12/09/24 01:52 Q15MIN PRN BG 50-70 responsive npo pt Dextrose 50 ml 11/09/24 10:46 Dextrose 50%-Water Inj 50 Ml Syringe IV 12/09/24 10:45 Q15MIN PRN BG <50 OR BG <70 & pt unresponsive Diltiazem HCl 120 mg 11/09/24 09:00 11/17/24 08:26 Diltiazem Cd 120 Mg Capcr PO 12/09/24 08:59 120 mg QDAY ASHWIN Administration Furosemide 20 mg 11/18/24 09:00 Furosemide 20 Mg Tablet PO 12/18/24 08:59 Q48H ASHWIN Glucagon 1 mg 11/09/24 10:46 Glucagon Inj 1 Mg Vial IM Q15MIN PRN BG <70, and no IV access Daptomycin 1,000 mg/ Sodium 50 mls @ 100 mls/hr 11/15/24 12:30 11/17/24 13:50 Chloride IV 11/22/24 12:29 100 mls/hr Q24H ASHWIN Administration Insulin Glargine 10 unit 11/09/24 21:00 11/16/24 20:37 Insulin Glargine (Lantus) 5 Unit/0.05 Ml (Per 5 Units) SC 12/09/24 20:59 10 unit HS ASHWIN Administration Insulin Human Lispro 3 unit 11/09/24 11:30 11/15/24 16:55 Insulin Lispro (Admelog) 1 Unit/0.01 Ml Unit SC 12/09/24 11:29 Not Given ACHS ASHWIN Insulin Human Lispro 0 unit 11/09/24 11:30 11/17/24 13:51 Insulin Lispro (Admelog) 1 Unit/0.01 Ml Unit SC 12/09/24 11:29 Not Given ACHS ASHWIN Protocol Magnesium Hydroxide 30 ml 11/09/24 02:03 Milk Of Magnesia Susp 30 Ml Udc PO 12/09/24 02:14 Q72H PRN Constipation Protocol Mirtazapine 45 mg 11/09/24 21:00 11/16/24 20:37 Mirtazapine 15 Mg Tablet PO 12/09/24 20:59 45 mg HS ASHWIN Administration Mupirocin 0 gm 11/10/24 22:00 11/17/24 13:50 Mupirocin Oint 2% 15 Gm Tube TOP 11/17/24 21:59 15 gm TID ASHWIN Administration Ondansetron HCl 4 mg 11/09/24 01:53 Ondansetron Inj 2 Mg/Ml Inj 2 Ml IV 12/09/24 01:52 Q6H PRN NAUSEA OR VOMITING Protocol Paroxetine HCl 20 mg 11/09/24 21:00 11/16/24 20:37 Paroxetine Hcl 10 Mg Tablet PO 12/09/24 20:59 20 mg HS ASHWIN Administration Polyethylene Glycol 17 gm 11/09/24 09:00 11/17/24 08:27 Polyethylene Glycol 17 Gm Packet PO 12/09/24 08:59 17 gm QDAY ASHWIN Administration Risperidone 3 mg 11/09/24 21:00 11/16/24 20:37 Risperidone 1 Mg Tablet PO 12/09/24 20:59 3 mg HS ASHWIN Administration Sennosides 1 tab 11/09/24 02:09 Senna Tablet PO 12/09/24 02:08 QDAY PRN CONSTIPATION Protocol Tamsulosin HCl 0.4 mg 11/09/24 09:00 11/17/24 08:26 Tamsulosin Hcl 0.4 Mg Capsule PO 12/09/24 08:59 0.4 mg QDAY ASHWIN Administration Plan Andrew Bella is 64-year-old male with past medical history significant for hypertension, diabetes mellitus type 2, CHF, CAD, COPD, A-fib, seizure disorder, hyperlipidemia, morbid obesity and ARIANA on hemodialysis TTS schedule was brought in by ambulance to ED after developing SOB for 1 day. The patient is admitted to [facility] telemetry unit for further management of acute hypoxic respiratory failure secondary to sepsis secondary to healthcare associated pneumonia. #MRSA bacteremia #Healthcare associated pneumonia Patient presented with SOB, has been on [facility], and was requiring 5 L oxygen via facemask for proper oxygen saturation. Met 3/4 SIRS criteria with temperature 102.9 and white count of 27.4, tachypnea with source of infection as right-sided pneumonia and UTI. End organ damage evidenced by ARIANA. Did not receive 30 cc/kg of crystalloid fluid bolus because of concern for CHF in ED Urine culture negative. Blood cultures blood cultures on 11/08 grew MRSA in both sets Repeat cultures on 11/09 was demonstrating Staphylococcus simulans, Final blood cultures from 11/11 are negative. Vancomycin (11/11-) TTE 11/12: Poor quality images. No clear valvular vegetations. Normal LV size and function. Estimated EF 55-60%. Mild LVH. Diastolic dysfunction present but cannot be graded because of the A-fib. Plan: -ID recs: Will switch over to daptomycin until November 24 (11/15-11/24) for treatment of MRSA bacteremia -TDC has been removed -IR will place PICC today -DuoNeb every 6 hourly scheduled -Daily a.m. labs for CBC, CMP and electrolytes -Oxygen as needed #Hx MARK Patient demand increasing at night with apneic episodes reported by nursing. Further questioning patient stated that he has been previously diagnosed with MARK about 5 years ago. Does not endorse using machine at home. ? Start BiPAP at bedtime ? Patient will need to repeat sleep outpatient #History of insulin-dependent type 2 diabetes, well controlled On admission initial glucose 242. Last A1c 7.1 on 08/10/24 A1c on this admission 6.9 -Held home medications -Bedside blood glucose checks ACHS -Continue 10 units glargine ?3 units lispro TID -Insulin lispro sliding scale -Carb consistent low diet #Hypomagnesemia Presented with magnesium level of 1.5 - Received 4 g magnesium sulfate - Daily a.m. labs for magnesium, replete as needed #Atrial fibrillation Patient has history of atrial fibrillation - resume diltiazem ER 120 Mg daily - hold rivaroxaban 20 Mg daily until TDC removed and PICC placed - Daily a.m. labs for electrolytes, maintain potassium greater than 4 and magnesium greater than 2 #NSTEMI, likely type II Presented with troponin of 0.046 Appears that patient's baseline troponin is slightly elevated, may be due to end-stage renal disease -delta acheived #Coronary artery disease by history #CHF with preserved ejection fraction, EF 55 to 60%, diastolic heart failure ECHO: Poor quality images. No clear valvular vegetations. Consider REECE if high clinical index of suspicion. Normal LV size and function. Estimated EF 55-60%. Mild LVH. Diastolic dysfunction present but cannot be graded because of the A-fib. Moderately dilated RV. Normal RV function. Elevated RVSP. Mild biatrial dilatation. Right greater than left. Mild MR. Trace TR -Continue PO Lasix 20mg overy other day starting tomorrow - holding aspirin 81 Mg daily until TDC removed and PICC placed - Strict intake and output - Daily weights - Fluid restriction 1500 cc #Depression -mirtazapine 45 Mg daily at night -paroxetine 20 Mg daily #Coagulopathy PT 13.7, APTT 21.1 Secondary to sepsis -platelets downtrending: stop heparin and repeat CBC - Monitor daily a.m. labs for PT and PTT #Acute hypoxic respiratory failure-resolved #Lactic acidosis-resolved #ARIANA-resolved Health maintenance: Dispo: MRSA bacteremia, PICC line today DVT prophylaxis: not indicated Diet: low carb Code: Full code The patient's management plan was discussed with my attending physician Dr. Voss. Shanae Pandya, PGY1 Attending Provider Attestation/Addendum Patient will get PICC line for IV antibiotic administration last daptomycin for MRSA bacteremia discussed with housestaff.. No new symptoms reported. Patient is hemodynamically stable.
[2024-11-17] MEDS: INSULIN GLARGINE (Lantus) 5 UNIT/0.05 ML (PER 5 UNITS) 10 UNIT SC (20:14)
[2024-11-17] MEDS: MIRTAZAPINE 15 MG TABLET 45 MG PO (20:15)
[2024-11-17] MEDS: PARoxetine HCL 10 MG TABLET 20 MG PO (20:15)
[2024-11-17] MEDS: risperiDONE 1 MG TABLET 3 MG PO (20:15)
[2024-11-18] VITALS (10 sets, daily range): BP systolic 117–134; BP diastolic 77–91; PULSE 72–91; RESP 12–21; TEMP 36.1–36.7; O2SAT 96–99; BMI 42.0
[2024-11-18 06:30] LABS: Basophils % (Auto) 1 % (0-2.5); Eosinophils # (Auto) 0.3 Thou/mm3 (0.0-0.5); Eosinophils % (Auto) 4 % (0-10); Hematocrit 37.2 % (41.0-53.0); Hemoglobin 11.8 g/dL (13.5-16.0); Immature Granulocytes % (Auto) 1 % (0-0); Immature Granulocytes Auto 0.04 Thou/mm3 (0.00-0.00); Lymphocytes # (Auto) 1.7 Thou/mm3 (1.0-4.8); Lymphocytes % (Auto) 25 % (10-50); Mean Corpuscular HGB Conc 31.7 g/dl (31.0-37.0); Mean Corpuscular Hemoglobin 27.6 pg (25.0-35.0); Mean Corpuscular Volume 87 fL (80-100); Monocytes # (Auto) 0.6 Thou/mm3 (0.0-0.8); Monocytes % (Auto) 9 % (0-12); Neutrophils % (Auto) 61 % (37-80); Nucleated Red Blood Cell % 0 /100 WBC (0); Platelet Count 253 Thou/mm3 (140-440); RDW Standard Deviation 43.6 fL (35.1-43.9); Red Blood Count 4.28 Miln/mm3 (4.50-5.90); White Blood Count 6.6 Thou/mm3 (3.8-10.6)
[2024-11-18 07:06] LABS: Alanine Aminotransferase 23 U/L (10-49); Albumin, Serum 3.7 gm/dL (3.4-4.8); Albumin/Globulin Ratio 1.2 (1.2-2.2); Alkaline Phosphatase 61 U/L (46-116); Anion Gap 7 (7-16); Aspartate Amino Transferase 23 U/L (0-34); BUN/Creatinine Ratio 23 Ratio (12-20); Bilirubin,Total 0.6 mg/dL (0.3-1.2); Blood Urea Nitrogen 23 mg/dL (9-23); Calcium (Corrected) 9.2 mg/dL (8.5-10.1); Carbon Dioxide 29.2 mMol/L (20.0-31.0); Chloride 105 mMol/L (98-107); Estimated Creatinine Clearance 114.9 mL/min (>60); Globulin 3.2 gm/dL (2.3-3.5); Glucose 117 mg/dL (74-106); Magnesium 1.8 mg/dL (1.6-2.6); Osmolality,Calculated 285 (275-295); Potassium 4.5 mMol/L (3.4-5.1); Sodium 141 mMol/L (136-145); Total Protein 6.9 gm/dL (5.7-8.2); eGFR > 60 See Note
[2024-11-18] MEDS: ASPIRIN EC 81 MG TABEC PO (09:35)
[2024-11-18] MEDS: POLYETHYLENE GLYCOL 17 GM PACKET PO (09:35)
[2024-11-18] MEDS: Furosemide 20 MG TABLET PO (09:36)
[2024-11-18] MEDS: DILTIAZEM CD 120 MG CAPCR PO (09:36)
[2024-11-18] MEDS: RIVAROXABAN 10 MG TABLET 20 MG PO (09:36)
[2024-11-18] MEDS: TAMSULOSIN HCL 0.4 MG CAPSULE PO (09:39)
--- NOTE | 2024-11-18 09:56 | ESPR_ITS ---
Documentation for date of: 11/18/24 Subjective Subjective Interval history: Patient was seen and examined at the bedside. No acute overnight events reported. Labs showed stable white count and hemoglobin. Electrolytes unremarkable. Kidney functions improved with BUN 23 and creatinine 1.0. Adequate urine output. Patient was recommended to continue Lasix every other day. Rest of the management per primary care team. Will sign off as ARIANA has resolved. Exam Vital Signs Temp Pulse Resp BP Pulse Ox O2 Del Method O2 Flow Rate 97.6 F 77 16 130/90 H 99 Room Air 1 11/18/24 04:00 11/18/24 09:36 11/18/24 07:10 11/18/24 09:36 11/18/24 07:10 11/18/24 04:00 11/14/24 12:00 FiO2 30 11/18/24 03:21 Narrative Exam Constitutional: Well nourished and in no acute distress CVS: RRR, S1 and S2 present, no murmurs, rubs or gallops . RESP: CTAB, no SOB, no rales, rhonchi or wheezing. No respiratory Distress GI: Normal BS, Nontender/Nondistended. MSK: Full range of motion, No trauma or deformities or masses. Skin: Warm to touch, Dry. No rashes or lesions. No hematomas Neuro: telephonic nurse II-XII grossly intact. Sensation grossly intact. Psych: (AAO) x3 . Appropriate mood and affect. Objective Labs 11/18/24 06:09 11/18/24 06:09 Labs: Laboratory Results - last 24 hr 11/18/24 06:09 WBC 6.6 RBC 4.28 L Hgb 11.8 L Hct 37.2 L MCV 87 MCH 27.6 MCHC 31.7 RDW Std Deviation 43.6 Plt Count 253 Neut % (Auto) 61 Lymph % (Auto) 25 [place] % (Auto) 9 Eos % (Auto) 4 Baso % (Auto) 1 Neut # (Auto) 4.0 Lymph # (Auto) 1.7 [place] # (Auto) 0.6 Eos # (Auto) 0.3 Baso # (Auto) 0.0 Immature Gran # (Auto) 0.04 H Absolute Nucleated RBC 0.00 Immature Gran % 1 H Nucleated RBC % 0 Sodium 141 Potassium 4.5 Chloride 105 Carbon Dioxide 29.2 Anion Gap 7 BUN 23 Creatinine 1.0 Estim Creat Clear Calc 114.9 eGFR > 60 BUN/Creatinine Ratio 23 H Glucose 117 H Calculated Osmolality 285 Calcium 9.0 Corrected Calcium 9.2 Magnesium 1.8 Total Bilirubin 0.6 AST 23 ALT 23 Alkaline Phosphatase 61 Total Protein 6.9 Albumin 3.7 Globulin 3.2 Albumin/Globulin Ratio 1.2 ABG Interpretation ABG results: 11/09/24 04:38 ABG pH 7.35 ABG pCO2 49 H ABG pO2 124 H ABG HCO3 27 H ABG O2 Saturation 99 H ABG Base Excess 1 Quality Measures Quality Measures sepsis Current suspected stage: sepsis Possible source: pulmonary Blood cultures ordered: yes Antibiotic ordered: Yes Assessment & Plan Assessment Current Active Medications: Generic Name Dose Route Start Last Admin Trade Name Freq PRN Reason Stop Dose Admin Acetaminophen 650 mg 11/09/24 01:53 Acetaminophen 325 Mg Tablet PO 12/09/24 01:52 Q6H PRN Fever >100.4 Acetaminophen 650 mg 11/09/24 01:53 11/16/24 12:07 Acetaminophen 325 Mg Tablet PO 12/09/24 01:52 650 mg Q6H PRN Administration PAIN SCALE 1-3 (mild Albuterol/Ipratropium 3 ml 11/09/24 14:20 Albuterol/Ipratropium (Duoneb) Rt Aspen 3 Ml Nebu INH 12/09/24 18:59 Q6HRRT PRN WHEEZING Aspirin 81 mg 11/09/24 09:00 11/18/24 09:35 Aspirin Ec 81 Mg Tabec PO 12/09/24 08:59 81 mg QDAY ASHWIN Administration Bisacodyl 10 mg 11/09/24 02:03 Bisacodyl 10 Mg Supp IN 12/09/24 02:14 Q72H PRN constipation Protocol Dextrose 25 ml 11/09/24 01:53 Dextrose 50%-Water Inj 50 Ml Syringe IV 12/09/24 01:52 Q15MIN PRN BG 50-70 responsive npo pt Dextrose 50 ml 11/09/24 10:46 Dextrose 50%-Water Inj 50 Ml Syringe IV 12/09/24 10:45 Q15MIN PRN BG <50 OR BG <70 & pt unresponsive Diltiazem HCl 120 mg 11/09/24 09:00 11/18/24 09:36 Diltiazem Cd 120 Mg Capcr PO 12/09/24 08:59 120 mg QDAY ASHWIN Administration Furosemide 20 mg 11/18/24 09:00 11/18/24 09:36 Furosemide 20 Mg Tablet PO 12/18/24 08:59 20 mg Q48H ASHWIN Administration Glucagon 1 mg 11/09/24 10:46 Glucagon Inj 1 Mg Vial IM Q15MIN PRN BG <70, and no IV access Daptomycin 1,000 mg/ Sodium 50 mls @ 100 mls/hr 11/15/24 12:30 11/17/24 13:50 Chloride IV 11/22/24 12:29 100 mls/hr Q24H ASHWIN Administration Insulin Glargine 10 unit 11/09/24 21:00 11/17/24 20:14 Insulin Glargine (Lantus) 5 Unit/0.05 Ml (Per 5 Units) SC 12/09/24 20:59 10 unit HS ASHWIN Administration Insulin Human Lispro 3 unit 11/09/24 11:30 11/15/24 16:55 Insulin Lispro (Admelog) 1 Unit/0.01 Ml Unit SC 12/09/24 11:29 Not Given ACHS ASHWIN Insulin Human Lispro 0 unit 11/09/24 11:30 11/18/24 09:37 Insulin Lispro (Admelog) 1 Unit/0.01 Ml Unit SC 12/09/24 11:29 Not Given ACHS ASHWIN Protocol Magnesium Hydroxide 30 ml 11/09/24 02:03 Milk Of Magnesia Susp 30 Ml Udc PO 12/09/24 02:14 Q72H PRN Constipation Protocol Mirtazapine 45 mg 11/09/24 21:00 11/17/24 20:15 Mirtazapine 15 Mg Tablet PO 12/09/24 20:59 45 mg HS ASHWIN Administration Ondansetron HCl 4 mg 11/09/24 01:53 Ondansetron Inj 2 Mg/Ml Inj 2 Ml IV 12/09/24 01:52 Q6H PRN NAUSEA OR VOMITING Protocol Paroxetine HCl 20 mg 11/09/24 21:00 11/17/24 20:15 Paroxetine Hcl 10 Mg Tablet PO 12/09/24 20:59 20 mg HS ASHWIN Administration Polyethylene Glycol 17 gm 11/09/24 09:00 11/18/24 09:35 Polyethylene Glycol 17 Gm Packet PO 12/09/24 08:59 17 gm QDAY ASHWIN Administration Risperidone 3 mg 11/09/24 21:00 11/17/24 20:15 Risperidone 1 Mg Tablet PO 12/09/24 20:59 3 mg HS ASHWIN Administration Rivaroxaban 20 mg 11/18/24 09:00 11/18/24 09:36 Rivaroxaban 10 Mg Tablet PO 12/18/24 08:59 20 mg QDAY ASHWIN Administration Sennosides 1 tab 11/09/24 02:09 Senna Tablet PO 12/09/24 02:08 QDAY PRN CONSTIPATION Protocol Tamsulosin HCl 0.4 mg 11/09/24 09:00 11/18/24 09:39 Tamsulosin Hcl 0.4 Mg Capsule PO 12/09/24 08:59 0.4 mg QDAY ASHWIN Administration Plan This 40-year-old male with MHx of CKD since July 2024, newly on HD TTS, T2DM, HTN, CHF, CAD, COPD, A-fib, seizure disorder, HLD, morbid obesity, presenting with SOB associated with fever, chills, nausea and vomiting and headaches. Complained of urinary symptoms including urgency and frequency. He was admitted for AHRF in setting of sepsis pneumonia. #ARIANA -markedly improved. Patient came off dialysis. Awaiting catheter removal Renal function stable, CR 1.0, BUN 24, EGFR >60, good urine output. Continue with LASIX 20 mg Q48H (next dose to start 11/18)\ We will sign off from the case as ARIANA has resolved #Sepsis resolved #Catheter related MRSA bacteremia. Pending dialysis catheter removal #Complicated UTI #Diabetes mellitus type 2 #Hypomagnesemia #Atrial fibrillation-anticoagulation on hold #NSTEMI, likely type II-asymptomatic #CAD #CHF #Depression #Coagulopathy Rest of the management as per primary care team. Thank you for the opportunity to participate in the patient's care.We will sign as ARIANA has resolved. Plan of care discussed with Glass Cleaning Machine Tender, Dr. Jean-Claude Cox MD PGY2 Attending Provider Attestation/Addendum Patient seen and examined with resident physician Dr. Cox. Note reviewed, agree with findings and recommendations. Patient had been receiving dialysis for the last 3 months for cardiorenal syndrome. Started to make urine. On low-dose Lasix. Clinically euvolemic. Creatinine markedly improved to 1.1. Hold dialysis. Admitted with low blood pressure-from catheter related bacteremia. Blood cultures came back positive for MRSA. DCed dialysis catheter. Xarelto resume Lasix every other day--renal estrada stable for discharge back to rehab.
--- NOTE | 2024-11-18 11:50 | PC.NURSE ---
Addendum entered by Latanya Mares RN 11/18/24 11:55: blood culture negative. Original Note: contact isolation discontinued per protocol,per [facility] infection control.
--- NOTE | 2024-11-18 11:58 | ESDS_ITS ---
Planned Discharge Date 11/18/24 DS: Providers Provider Date of admission: 11/09/24 01:13 Primary care physician: Johnnie Yousif MD ([facility]) Admitting Provider: Barry Yousif MD Attending Provider on Admission: Adam Voss MD Consults: 11/09/24 01:32 Consult to Nephrology Routine Comment: Consulting Provider: Dolly Bermeo 11/09/24 03:20 Health Equity Referral - Nutrition Routine Comment: Positive screening for nutrition needs. Health Equity Referral - Transportation Routine Comment: Positive screening for transportation needs. 11/10/24 11:03 Referral Physical Therapy Routine Comment: Physician Instructions: 11/12/24 11:39 Consult to Infectious Diseases Routine Comment: MRSA bacteremia, removing TDC Consulting Provider: Rudy Floyd Attending Provider on DC: Adam Voss MD Discharging Provider: Adam Voss MD DS: Diagnosis Problem List Completed Was Problem List Reviewed/Reconciled?: Yes Hospital Course Hospital Course Hospital course: Reason for hospitalization: MRSA bacteremia, HAP Andrew Bella is 64 yr male with PMH of hypertension, diabetes mellitus type 2, CHF, CAD, COPD, A-fib, seizure disorder, hyperlipidemia, morbid obesity and ARIANA on hemodialysis TTS schedule was brought in by ambulance to [facility] ED in 11/09/24 after developing SOB and weakness for week. He was febrile with temp 102.9, tachypneic 22, WBC 27, creatinine 1.6. EKG revealed A-fib with VR 61, CXR was suspicious for superimposed pneumonia at right base, with mild heart failure. He was admitted for acute hypoxic respiratory failure secondary to sepsis secondary to PNA. Nephrology Dr. Bermeo was consulted for hemodialysis. However given improvement in renal function, patient was taken off dialysis. Was resuscitated adequately with fluids for treatment of ARIANA. Patient's Xarelto and aspirin were held for approximately 5 days and TDC was removed on 11/16. Blood cultures on 11/08 positive for MRSA. Patient was on vancomycin from 11/11 - 11/13. TTE was negative for any PFO or valvular vegetations. ID Dr Floyd was consulted and patient was switched to IV daptomycin to be completed by November 24. PICC line was placed successfully on 11/17. Subsequently patient resumed on his Xarelto and aspirin. Repeat blood cultures have been negative. Patient also endorsed having obstructive sleep apnea but noncompliance with his machine. Oxygen was improved through the night. Started on BiPAP during hospitalization. He was counseled on obtaining new sleep study ordered by PCP to get CPAP machine for home. Blood sugars were well-controlled during hospitalization. Per nephrology team patient should continue Lasix every other day for HFpEF. Patient's ARIANA resolved with creatinine of 1.0. Patient is now in stable condition and ready for discharge. Recommendations were given as below. Discharge Recommendations: Daptomycin 1g daily until November 24, 2024 through PICC line. Weekly labs for CPK. Continue taking previous medications. Use topical Benadryl cream for rash on right upper chest, as needed. Stop taking apixaban 2.5mg. Follow up with your PCP in 1-2 weeks. Hospital Diagnoses: #MRSA bacteremia #Healthcare associated pneumonia #Hx MARK #History of insulin-dependent type 2 diabetes, well controlled #Hypomagnesemia #Atrial fibrillation #NSTEMI, likely type II #Coronary artery disease by history #CHF with preserved ejection fraction, EF 55 to 60%, diastolic heart failure #Depression #Coagulopathy #Acute hypoxic respiratory failure-resolved #Lactic acidosis-resolved #ARIANA-resolved The patient's management plan was discussed with my attending physician Dr. Voss. Shanae Pandya MD, PGY-1 Time Spent with Patient Time attestation: Total time spent providing and/or coordinating discharge services: Time spent: Greater than 30 minutes Exam Vital Signs Temp Pulse Resp BP Pulse Ox O2 Del Method O2 Flow Rate 96.9 F 77 20 130/90 H 99 Room Air 1 11/18/24 08:00 11/18/24 09:36 11/18/24 08:00 11/18/24 09:36 11/18/24 08:00 11/18/24 08:00 11/14/24 12:00 FiO2 30 11/18/24 03:21 Narrative Exam General: Elderly male, obese, no acute distress, cooperative HEENT: NCAT, No JVD noted. Mucosa moist. Pupils are equal and reactive to light bilaterally Cardiovascular: Normal S1 and S2. Regular rate and rhythm. Respiratory: Lungs are clear to auscultation bilaterally. No wheezing or crackles heard. Abdomen: Soft, nontender, not distended, normal bowel sounds. Skin: Warm to touch, dry, lower extremity venous stasis discoloration, TDC removed, left PICC in place. Musculoskeletal: No gross injuries. Able to move all 4 extremities. No pitting edema. Neuro: Alert and oriented x3. No focal neuro deficits. Psych: Normal affect and mood Discharge Plan Plan Patient Disposition: Xfer Skilled Nsg Fac (SNF) Disposition Comment: Admitted to Dr. Yousif Patient condition on transfer: Stable Prescriptions/Referrals Prescriptions/Med Rec: New daptomycin in 0.9 % sod chlor 1,000 mg/100 mL piggyback 893 mg IV Q24H 6 Days Rx Instructions: administer over 30 mins Benadryl 2 % gel 1 applic topical BID Qty: 103 0RF Rx Instructions: Apply to area as needed. Continued mirtazapine 45 mg tablet 45 mg PO HS Qty: 30 0RF Tradjenta 5 mg tablet 5 mg PO QAM Qty: 30 0RF paroxetine HCl 20 mg tablet 20 mg PO HS Qty: 30 0RF Rx Instructions: Hold this medicine if patient notice signs of confusion, hallucination, seizure, extreme changes in blood pressure, increased heart rate, fever, excessive sweating, shivering or shaking, blurred vision for risk of serotonin syndrome in combination with mirtazapine diltiazem HCl [Cardizem CD] 120 mg capsule,extended release 24hr 120 mg PO QAM Qty: 30 0RF polyethylene glycol 3350 [Miralax] 17 gram/dose powder 4 g PO QDAY PRN (Reason: constipation) Qty: 119 0RF senna 8.6 mg capsule 8.6 mg PO QDAY PRN (Reason: constipation) Qty: 20 0RF lidocaine 5 % adhesive patch,medicated 3 patch topical QDAY Qty: 30 4RF Rx Instructions: leave on most painful area for up to 12 hrs aspirin 81 mg tablet,chewable 81 mg PO QDAY magnesium hydroxide [Milk of Magnesia] 400 mg/5 mL suspension 30 ml PO Q3D PRN (Reason: constipation) bisacodyl 10 mg suppository 10 mg OK Q3D PRN (Reason: constipation) Enema 19-7 gram/118 mL enema 118 ml OK Q3D PRN (Reason: constipation) insulin asp prt-insulin aspart [Novolog Mix 70-30 U-100 Insuln] 100 unit/mL (70-30) solution 1 sliding scale dose subcut USEASDIRECTD Dialyvite 800 0.8 mg tablet 1 tab PO QDAY sevelamer carbonate [Renvela] 800 mg tablet 800 mg PO TID Rx Instructions: must administer with a meal/food risperidone [Risperdal] 3 mg tablet 3 mg PO QDAY rivaroxaban 20 mg tablet 20 mg PO QDAY Rx Instructions: must administer with evening meal tamsulosin 0.4 mg capsule 0.4 mg PO HS Discontinued apixaban 2.5 mg tablet 2.5 mg PO BID Qty: 60 3RF Referrals: Benja([facility]),Johnnie Paige MD [Primary Care Provider] - Patient/Caregiver Discharge Instructions Other Discharge Activity Instructions:: Daptomycin 1g daily until November 24, 2024 through PICC line. Weekly labs for CPK. Continue taking previous medications. Use topical Benadryl cream for rash on right upper chest, as needed. Stop taking apixaban 2.5mg. Follow up with your PCP in 1-2 weeks. Education Materials: Sepsis, ED Lymphedema, ED Leg Swelling in a Single Leg, ED Pneumonia (Adult) Print Language: Hungarian Stand Alone Forms: Naida Award Info., Patient Portal Info Letter Discharge Order Discharge Orders: Discharge (Routine); Ordered 11/18/24 Ordered By: Jaiden Cervantes Quality Discharge Quality Measures VTE prophylaxis Attestestation MD Attestation I discussed with and supervised the resident physician who took care of this patient. I agree with the assessment and discharge plan as above.
[2024-11-18] MEDS: DAPTOMYCIN IV (13:09)
[2024-11-18] MEDS: SODIUM CHLORIDE 0.9% IV (13:09)
--- NOTE | 2024-11-18 14:36 | PC.SS ---
SS has setup gurney transportation through [employer]. Ref# [id number]. Pt will be returning to [facility]. Soniya from [facility] is aware. SS has confirmed with Clau from [facility]. Lilli from [facility] have rescheduled transportation now for 3-4pm to [facility]. Bedside nurse, Lyric is aware to have pt ready by 2pm. Darlene GUEVARA and Amanda are aware.
== END 2024-11-18 15:52 | disposition skilled nursing facility (03) | DRG 871 ==
LOC: SERX 11-09 01:20 → SERHOLD 11-09 01:27 → S3NX 11-09 02:42 → S2NX 11-11 02:19
PROVIDERS: Radiology Diagnostic Radiology; Student in an Organized Health Care Education/Training Program; Admitting Provider Internal Medicine; Emergency Provider Emergency Medicine; PCP Hospitalist; Visit Provider Internal Medicine
DX: A41.02 Sepsis due to Methicillin resistant Staphylococcus aureus (principal); I21.A1 Myocardial infarction type 2; J96.01 Acute respiratory failure with hypoxia; J15.212 Pneumonia due to Methicillin resistant Staphylococcus aureus; J44.0 Chronic obstructive pulmonary disease with (acute) lower respiratory infection; Z68.41 Body mass index [BMI] 40.0-44.9, adult; E87.20 Acidosis, unspecified; N17.9 Acute kidney failure, unspecified; N39.0 Urinary tract infection, site not specified; I13.2 Hypertensive heart and chronic kidney disease with heart failure and with stage 5 chronic kidney disease, or end stage renal disease; D68.9 Coagulation defect, unspecified; I50.30 Unspecified diastolic (congestive) heart failure; G40.909 Epilepsy, unspecified, not intractable, without status epilepticus; I48.91 Unspecified atrial fibrillation; Z79.899 Other long term (current) drug therapy; E78.5 Hyperlipidemia, unspecified; E11.65 Type 2 diabetes mellitus with hyperglycemia; E11.22 Type 2 diabetes mellitus with diabetic chronic kidney disease; N18.32 Chronic kidney disease, stage 3b; I25.10 Atherosclerotic heart disease of native coronary artery without angina pectoris; E66.01 Morbid (severe) obesity due to excess calories; E83.42 Hypomagnesemia; F32.A Depression, unspecified; N40.0 Benign prostatic hyperplasia without lower urinary tract symptoms; M48.00 Spinal stenosis, site unspecified; I87.2 Venous insufficiency (chronic) (peripheral); G47.33 Obstructive sleep apnea (adult) (pediatric); G89.29 Other chronic pain; Z79.01 Long term (current) use of anticoagulants; Z79.82 Long term (current) use of aspirin; Y95 Nosocomial condition; Z87.01 Personal history of pneumonia (recurrent); Z79.4 Long term (current) use of insulin; Z87.891 Personal history of nicotine dependence; Z91.199 Patient's noncompliance with other medical treatment and regimen due to unspecified reason; Z99.2 Dependence on renal dialysis
CPT/HCPCS: 36415; 36600; 71045; 77001; 80053; 80061; 80202; 81001; 82803; 83036; 83605; 83615; 83690; 83735; 83880; 84100; 84145; 84443; 84484; 85025; 85610; 85730; 87040; 87077; 87081; 87086; 87186; 87205; 87400; 87811; 93005; 93225; 93306; 94640; 94660; 94664; 96365; 96366; 96367; 96372; 97162; 99291; A9270; C1751; C1894; J0692; J0872; J1642; J1815; J2543; J3370; J3371; J3475; J3490; J7030; J7040; J7050

== ENCOUNTER 2024-12-29 20:36 | Inpatient (IN) | payer MEDICARE, MEDICAID, SELFPAY ==
[2024-12-29 20:39] VITALS: BP 129/62; PULSE 48; RESP 23; TEMP 37.8; O2SAT 94
[2024-12-29 20:40] VITALS: BMI 38.5
[2024-12-29 21:00] VITALS: PULSE 48; PULSE 52; RESP 22; O2SAT 95
--- NOTE | 2024-12-29 21:29 | EKG_ITS ---
[facility] Test Date: 2024-12-29 Pat Name: YNES NEIL Department: Room: - Gender: Male [employer]: : [id number] Requested By: Harjinder Gustafson Order Number: [id number] Reading MD: Harjinder Gustafson Measurements Intervals [place] Rate: 46 P: AR: QRS: 75 QRSD: 81 T: 48 QT: 449 QTc: 396 Interpretive Statements ATRIAL FIBRILLATION WITH SLOW VENTRICULAR RESPONSE ABNORMAL RHYTHM ECG Compared to ECG 11/08/2024 22:33:03 Left-axis deviation no longer present Myocardial infarct finding no longer present /store/S0/[id number].pdf
--- NOTE | 2024-12-29 22:08 | PD.EDSKIN ---
ED Skin Abcess FB-RME/HPI General Stated complaint: LEG PAIN Arrival date/time: 12/29/24 20:36 RME / HPI RME / HPI narrative: Dr. Gunter?s Main ED Evaluation: 64yo male with a history of HTN, DMII, CHF, CAD, COPD, A-fib, seizure disorder, hyperlipidemia, ARIANA on hemodialysis TTS BIBA from home presents to the ED for a chief complaint of wounds to his BLE. Patient states he has some blisters to his BLE that popped 1-2 weeks ago, reporting they have since developed into wounds that are not healing properly. Patient endorses having significant pain, rating it a 7-8 out of 10 in severity, so he came in for evaluation. Patient denies any fever, chills, N/V or any other associated symptoms. Related Data Home Medications ?Medication ?Instructions ?Recorded ?Confirmed aspirin 81 mg chewable tablet 81 mg PO QDAY 11/09/24 11/09/24 bisacodyl 10 mg rectal suppository 10 mg OH Q3D PRN constipation 11/09/24 11/09/24 insulin aspar prt-insulin aspart 1 sliding scale dose subcut 11/09/24 11/09/24 100 unit/mL (70-30) subcutaneous USEASDIRECTD soln (Novolog Mix 70-30 U-100 Insuln) magnesium hydroxide 400 mg/5 mL 30 ml PO Q3D PRN constipation 11/09/24 11/09/24 oral suspension (Milk of Magnesia) risperidone 3 mg tablet (Risperdal) 3 mg PO QDAY 11/09/24 11/09/24 rivaroxaban 20 mg tablet 20 mg PO QDAY 11/09/24 11/09/24 sevelamer carbonate 800 mg tablet 800 mg PO TID 11/09/24 11/09/24 (Renvela) sodium phosphates 19 gram-7 118 ml OH Q3D PRN constipation 11/09/24 11/09/24 gram/118 mL enema (Enema) tamsulosin 0.4 mg capsule 0.4 mg PO HS 11/09/24 11/09/24 vitamin B complex-vitamin C-folic 1 tab PO QDAY 11/09/24 11/09/24 acid 0.8 mg tablet (Dialyvite 800) Previous Rx's ?Medication ?Instructions ?Recorded diltiazem HCl 120 mg 120 mg PO QAM #30 caps 08/19/24 capsule,extended release 24 hr (Cardizem CD) linagliptin 5 mg tablet (Tradjenta) 5 mg PO QAM #30 tabs 08/19/24 mirtazapine 45 mg tablet 45 mg PO HS #30 tabs 08/19/24 paroxetine HCl 20 mg tablet 20 mg PO HS #30 tabs 08/19/24 polyethylene glycol 3350 17 4 g PO QDAY PRN constipation #119 08/19/24 gram/dose oral powder (Miralax) grams sennosides 8.6 mg capsule (senna) 8.6 mg PO QDAY PRN constipation 08/19/24 #20 caps lidocaine 5 % topical patch 3 patch topical QDAY #30 ea 08/21/24 diphenhydramine HCl 2 % topical 1 applic topical BID allergic 11/18/24 gel (Benadryl) reaction to tape #103 mL Allergies Allergy/AdvReac Type Severity Reaction Status Date / Time atorvastatin Allergy Verified 08/09/24 13:49 lisinopril Allergy Verified 08/09/24 13:49 sulfamethoxazole (From Allergy Verified 08/09/24 13:49 Bactrim) trimethoprim (From Bactrim) Allergy Verified 08/09/24 13:49 Review of Systems Review of Systems Systems Reviewed: All systems reviewed, normal except as documented Past Medical History Past Medical History NEUROLOGIC: Positive Seizures CARDIAC: Positive Cardiac Disorders, Hypercholesterolemia, Congestive Heart Failure and Hypertension RESPIRATORY: Positive Chronic Obstructive Pulmonary Disease (COPD) GASTROINTESTINAL: Positive Gastrointestinal Disorders GENITOURINARY: Negative Renal Disease ENDOCRINE: Positive Diabetes Mellitus Type 2; Negative Diabetes Mellitus Type 1 OTHER HISTORY: Negative Blood Transfusions, Blood Transfusion Reaction or Anesthesia Reactions Surgical History SURGICAL: Positive Tonsillectomy and Joint Replacement Social History SMOKING STATUS: Former smoker ED Exam Narrative Physical exam: GENERAL APPEARANCE: alert and oriented x 4, well-developed, well-nourished, no acute distress VITALS: All vitals were reviewed and the pulse ox is 95% on room air, which is normal according to my interpretation. HEENT: Normocephalic, atraumatic; pupils equal, round, reactive to light; EOMI; mucous membranes pink, moist; oropharynx clear NECK: Supple LUNGS: CTABL; no wheezes, no rales, no rhonchi HEART: Regular rate, regular rhythm; normal S1, S2; no murmurs ABDOMEN: non distended; normal BS; soft, no tenderness, no guarding, no rebound; no masses, no organomegaly, no hernia BACK: no CVA tenderness EXTREMITIES: atraumatic; chronic skin changes from the shins down; tenderness to palpation from the bilateral knees down NEUROLOGIC: awake; alert and oriented x4; cranial nerves II-XII grossly intact; no focal sensory or motor deficits PSYCHIATRIC: appropriate mood and affect SKIN: warm, dry; 7x8 cm circular open wound with surrounding erythema and swelling to the right dorsal foot, no perulent drainage; 10x11 cm circular wound just superior to the right medial malleoulus with surrounding erythema, swelling, and perulent drainage; 4x3 cm open wound with perulent drainage to the left dorsal foot; 15x10 cm open denuted wound with perulent drainage and surrounding erythema over the left lateral malleoulus Course Course Course Narrative: CXR is ordered for determining the etiology of sepsis. Quality Measures Possible source: skin/soft tissue Blood cultures ordered: yes Antibiotic ordered: Yes Pertinent labs: 12/29/24 22:24 Lactic Acid 1.8 mMol/L (0.4-2.0) Procalcitonin 0.43 ng/ml (0.0-0.49) sepsis Orders Category Date Time Status Bedside Blood Glucose NOW Care 12/29/24 22:09 Active Recycling Worker now Care 12/29/24 22:09 Active Continuous Pulse Oximetry NOW Care 12/29/24 22:10 Completed EKG (ED ONLY) *Do not use* NOW Care 12/29/24 21:29 Completed Insert IV NOW Care 12/29/24 22:09 Active Strict Intake and Output Routine Care 12/29/24 22:09 Ordered Urinary Catheter NOW Care 12/29/24 22:10 Active EKG (ED Only) Stat Exams 12/29/24 21:29 Draft XR chest 1V SEPSIS PROTOCOL Stat Exams 12/29/24 22:09 Completed Blood Culture (Lab) Stat Lab 12/29/24 22:09 Received CBC Stat Lab 12/29/24 22:24 Completed Comprehensive Metabolic Panel Stat Lab 12/29/24 22:24 Completed Lactate (Lactic Acid) Stat Lab 12/29/24 22:24 Completed Partial Thromboplastin Time Stat Lab 12/29/24 22:24 Completed Procalcitonin Stat Lab 12/29/24 22:24 Completed Prothrombin Time with INR Stat Lab 12/29/24 22:24 Completed Troponin I Stat Lab 12/29/24 22:24 Completed Urinalysis Stat Lab 12/29/24 22:15 Completed Urine Culture Stat Lab 12/29/24 22:15 Received Acetaminophen Ivpb [Ofirmev Inj] Med 12/29/24 22:11 Discontinued 1,000 mg in 100 ml IV X1 Doxycycline Inj [Vibramycin Inj] 100 mg Med 12/29/24 22:09 Discontinued Sodium Chloride 0.9% (Pop) [NS 0.9% mini bag] 100 ml IV X1 Ketorolac Inj [Toradol Inj] Med 12/29/24 22:11 Discontinued 30 mg IVP X1 ONE Piper/Tazo Inj [Zosyn Inj] 4.5 gm Med 12/29/24 22:10 Discontinued Sodium Chloride 0.9% (Pop) [NS 0.9% mini bag] 100 ml IV X1 Sodium Chloride 0.9% 500 ml [Ns] 500 ml Med 12/30/24 00:12 Discontinued IV 999 mls/hr EKG (RT) Stat RT 12/29/24 22:09 Ordered Oxygen Delivery NOW RT 12/29/24 22:09 Active Vital Signs Vital signs: Vital Signs Temperature 100.1 F 12/29/24 20:39 Pulse Rate 48 L 12/29/24 20:39 Respiratory Rate 23 H 12/29/24 20:39 Blood Pressure 129/62 12/29/24 20:39 Pulse Oximetry (%) 94 L 12/29/24 20:39 Oxygen Delivery Method Room Air 12/29/24 20:39 Skin / Abscess / Foreign Body MDM Narrative MDM Narrative:: Scribe Attestation: 12/29/24 - Kelsey Lopez am scribing for and in the presence of Dr. Gunter. 2212: Sepsis alert initiated. Orders made at this time are congruent with ED Adult Sepsis Order List. Re-evaluation is to be completed. Sepsis 30mL/kg IVF withheld due to the patient's extreme pedal edema. NS IVF 500mL ordered. 0011: Discussed case with Dr. Henley, attending Dr. Reyez from Hospitalist service regarding admission. Discussed patients ED course, exam findings, labs, and radiology results. The Hospitalist agrees to accept the patient for admission. Patient data External records reviewed:: [facility] previous records (Per chart review, patient was admitted here on 11/08/24 for healthcare-acquired pneumonia.) Clinical information provided by:: patient Social determinants that could affect healthcare access:: none Patient has the following chronic illnesses:: HTN, DMII, CHF, CAD, COPD, A-fib, seizure disorder, hyperlipidemia, morbid obesity and ARIANA on hemodialysis TTS How is presenting disease/condition affected by chronic disease/condition?: exacerbated by Evaluation data The following diagnostics were reviewed and interpreted by me:: lab results and EKG tracing(s) Lab and/or radiology exams considered but not ordered:: none Interpretation Summary: WBC 13.1, Creatinine 1.8, BUN 40, Glucose 299, Lactic Acid normal, Troponin normal, Procalcitonin normal. EKG done at 2131, aFib, rate of 46, normal axis, no ectopy, no acute ischemia, according to my interpretation. Medications / Prescriptions Medications or Prescriptions considered but not ordered:: none Medication administrations:: Medication Administration History Acetaminophen (Acetaminophen 325 Mg Tablet) 650 mg PO Q6H PRN PRN Reason: Fever >99.5 Stop: 01/29/25 01:04 Acetaminophen (Acetaminophen 325 Mg Tablet) 1,000 mg PO Q6H PRN PRN Reason: PAIN SCALE 1-3 (mild Stop: 01/29/25 01:04 Aspirin (Aspirin Ec 81 Mg Tabec) 81 mg PO QDAY [facility] Stop: 01/29/25 08:59 Bumetanide (Bumetanide Inj 0.25 Mg/Ml Vial 4 Ml) 2 mg IVP BIDD [facility] Stop: 01/29/25 05:59 Cephalexin HCl (Cephalexin 250 Mg Capsule) 500 mg PO QID [facility] Stop: 01/06/25 05:59 Dextrose (Dextrose 50%-Water Inj 50 Ml Syringe) 25 ml IV Q15MIN PRN PRN Reason: BG 50-70 responsive npo pt Stop: 01/29/25 01:39 Dextrose (Dextrose 50%-Water Inj 50 Ml Syringe) 50 ml IV Q15MIN PRN PRN Reason: BG <50 OR BG <70 & pt unresponsive Stop: 01/29/25 01:39 Diltiazem HCl (Diltiazem Cd 120 Mg Capcr) 120 mg PO QDAY [facility] Stop: 01/29/25 08:59 Docusate Sodium (Docusate Sod 100 Mg Capsule) 100 mg PO QDAY [facility]; Protocol Stop: 01/29/25 08:59 Glucagon (Glucagon Inj 1 Mg Vial) 1 mg IM Q15MIN PRN PRN Reason: BG <70, and no IV access Doxycycline Hyclate 100 mg/ (Sodium Chloride) 100 mls @ 100 mls/hr IV BID [facility] Stop: 01/06/25 08:59 Insulin Human Lispro (Insulin Lispro (Admelog) 1 Unit/0.01 Ml Unit) 0 unit SC AC [facility]; Protocol Stop: 01/29/25 07:29 Morphine Sulfate (Morphine Sulf Inj 10 Mg/Ml Vial) 2 mg IVP Q4HR PRN PRN Reason: PAIN SCALE 4-10(Mod-Sev Stop: 01/04/25 02:01 Last Admin: 12/30/24 02:58 Dose: 2 mg Documented By: CG Ondansetron HCl (Ondansetron Inj 2 Mg/Ml Inj 2 Ml) 4 mg IVP Q6H PRN; Protocol PRN Reason: NAUSEA OR VOMITING Stop: 01/29/25 01:04 Rivaroxaban (Rivaroxaban 10 Mg Tablet) 20 mg PO QDAY [facility] Stop: 01/29/25 08:59 Sennosides (Senna Tablet) 1 tab PO QDAY [facility]; Protocol Stop: 01/29/25 08:59 Tamsulosin HCl (Tamsulosin Hcl 0.4 Mg Capsule) 0.4 mg PO QDAY [facility] Stop: 01/29/25 08:59 Discontinued Medications Enoxaparin Sodium (Enoxaparin Sod Inj 40 Mg/0.4 Ml Syringe) 40 mg SC QDAY [facility] Stop: 01/13/25 08:59 Piperacillin Sod/Tazobactam (Sod 4.5 gm/ Sodium Chloride) 100 mls @ 200 mls/hr IV X1 ONE Stop: 12/29/24 22:39 Last Infusion: 12/29/24 23:42 Dose: Infused Documented By: Admin: 12/29/24 23:12 Dose: 200 mls/hr Documented By: CG Doxycycline Hyclate 100 mg/ (Sodium Chloride) 100 mls @ 100 mls/hr IV X1 ONE Stop: 12/29/24 23:08 Last Admin: 12/30/24 00:09 Dose: 100 mls/hr Documented By: CG Acetaminophen (Ofirmev Inj) 1,000 mg in 100 mls @ 250 mls/hr IV X1 ONE Stop: 12/29/24 22:34 Last Infusion: 12/29/24 23:20 Dose: Infused Documented By: Admin: 12/29/24 22:56 Dose: 250 mls/hr Documented By: DEVAN Sodium Chloride (Ns) 500 mls @ 999 mls/hr IV .Q31M ONE Stop: 12/30/24 00:42 Ketorolac Tromethamine (Ketorolac Inj 30 Mg/Ml Vial) 30 mg IVP X1 ONE Stop: 12/29/24 22:12 Last Admin: 12/29/24 22:54 Dose: 30 mg Documented By: DEVAN Morphine Sulfate (Morphine Sulf Inj 10 Mg/Ml Vial) 2 mg IVP Q4HR PRN PRN Reason: PAIN Stop: 01/04/25 02:01 Oxycodone/Acetaminophen (Oxycodone/Apap 5/325 Tablet) 1 tab PO Q6H PRN PRN Reason: PAIN SCALE 4-6 (Moderate Stop: 01/04/25 01:04 see above Consultations Consultation(s) initiated? (list below): Yes Diagnosis Skin/Abscess Differential Diagnosis: cellulitis and other (necrotizing fasciitis, sepsis, severe sepsis, septic shock) Most likely diagnosis given after review of the tests above:: see clinical impression below Admission Indicated Admission indicated?: indicated Admission Request Was there a request for admission?: Yes Admission Attestation Admission request attestation: Discussed case with [] from Hospitalist service regarding admission. Discussed patients ED course, exam findings, labs, and radiology results. The Hospitalist [agrees,declines] to accept the patient for admission. Disposition Plan Disposition Plan: Admit Critical Care Time Critical Care Time Critical Care Time: Yes Total Critical Care Time (min.): 35 Attestation: The high probability of sudden, clinically significant deterioration in the patient?s condition required the highest level of my preparedness to intervene urgently. The services I provided to this patient were to treat and/or prevent clinically significant deterioration. Services included the following: chart data review, reviewing nursing notes and/or old charts, documentation time, automation consultant collaboration regarding findings and treatment options, medication orders and management, direct patient care, vital sign assessments and ordering, interpreting and reviewing diagnostic studies and lab tests. Aggregate critical care time includes only time during which I was engaged in work directly related to the patient?s care, as described above, whether at bedside or elsewhere in the Emergency Department. It did not include time spent performing other reported procedures or the services of residents, students, nurses or physician assistants. Discharge Plan Plan Patient Disposition: Admit Acute Care w/in Hospital Problem List Clinical Impression: Cellulitis, ARIANA (acute kidney injury), Sepsis
--- NOTE | 2024-12-29 22:09 | XR_ITS ---
Examination: AP portable semiupright chest single view TECHNIQUE: AP portable semiupright chest single view Date and time: December 29, 2024, 10:38 PM Comparison November 08, 2024 INDICATIONS: Sepsis protocol FINDINGS: No significant cardiac enlargement Lungs are clear. The osseous structures are intact IMPRESSION: No active disease
[2024-12-29 22:31] LABS: Collection Type, Urine Catheter; RBC,Urine 0 /hpf (0-3); WBC,Urine 0 /hpf (0-5)
[2024-12-29 22:31] LABS: Lactate (Lactic Acid) 1.8 mMol/L (0.4-2.0)
[2024-12-29 22:48] LABS: Basophils # (Auto) 0.1 Thou/mm3 (0.0-0.2); Basophils % (Auto) 0 % (0-2.5); Eosinophils # (Auto) 0.2 Thou/mm3 (0.0-0.5); Eosinophils % (Auto) 1 % (0-10); Hematocrit 35.7 % (41.0-53.0); Hemoglobin 11.8 g/dL (13.5-16.0); Immature Granulocytes % (Auto) 0 % (0-0); Immature Granulocytes Auto 0.05 Thou/mm3 (0.00-0.00); Lymphocytes # (Auto) 1.7 Thou/mm3 (1.0-4.8); Lymphocytes % (Auto) 13 % (10-50); Mean Corpuscular HGB Conc 33.1 g/dl (31.0-37.0); Mean Corpuscular Hemoglobin 27.2 pg (25.0-35.0); Mean Corpuscular Volume 82 fL (80-100); Monocytes # (Auto) 0.7 Thou/mm3 (0.0-0.8); Monocytes % (Auto) 5 % (0-12); Neutrophils # (Auto) 10.4 Thou/mm3 (1.8-7.7); Neutrophils % (Auto) 80 % (37-80); Nucleated Red Blood Cell % 0 /100 WBC (0); Platelet Count 391 Thou/mm3 (140-440); RDW Standard Deviation 47.5 fL (35.1-43.9); Red Blood Count 4.34 Miln/mm3 (4.50-5.90); White Blood Count 13.1 Thou/mm3 (3.8-10.6)
[2024-12-29] MEDS: KETOROLAC INJ 30 MG/ML VIAL IVP (22:54)
[2024-12-29 22:56] LABS: INR 1.1 (0.9-1.3); Partial Thromboplastin Time 27.3 Seconds (22.0-36.0); Prothrombin Time 11.7 Seconds (9.0-12.2)
[2024-12-29] MEDS: ACETAMINOPHEN IVPB 1,000 MG/100 ML VIAL 250 MG IV (22:56)
[2024-12-29 22:58] LABS: Bilirubin,Urine Negative (Negative); Blood,Urine Negative (Negative); Clarity,Urine Clear (Clear/Hazy); Color,Urine Yellow (Lt Yel-Yel); Glucose, Urine Trace (Negative); Ketones,Urine Negative (Negative); Leukocyte Esterase,Urine Negative (Negative); Nitrite,Urine Negative (Negative); Protein,Urine 1+ (Neg - Trace); Specific Gravity,Urine 1.041 (1.001-1.035); Squamous Epithelial Cell,Urine < 1 /hpf (0-5)
[2024-12-29 23:02] LABS: Alanine Aminotransferase 8 U/L (10-49); Albumin, Serum 3.7 gm/dL (3.4-4.8); Albumin/Globulin Ratio 1.2 (1.2-2.2); Alkaline Phosphatase 45 U/L (46-116); Anion Gap 11 (7-16); Aspartate Amino Transferase 11 U/L (0-34); BUN/Creatinine Ratio 22 Ratio (12-20); Bilirubin,Total 0.4 mg/dL (0.3-1.2); Blood Urea Nitrogen 40 mg/dL (9-23); Calcium 8.5 mg/dL (8.3-10.6); Calcium (Corrected) 8.7 mg/dL (8.5-10.1); Carbon Dioxide 21.1 mMol/L (20.0-31.0); Chloride 107 mMol/L (98-107); Creatinine (Component) 1.8 mg/dL (0.6-1.3); Estimated Creatinine Clearance 60.8 mL/min (>60); Glucose 299 mg/dL (74-106); Osmolality,Calculated 298 (275-295); Potassium 5.1 mMol/L (3.4-5.1); Procalcitonin 0.43 ng/ml (0.0-0.49); Sodium 139 mMol/L (136-145); Total Protein 6.7 gm/dL (5.7-8.2); Troponin I 0.025 ng/mL (0.0-0.045); eGFR 42 See Note
[2024-12-29] MEDS: PIPER/TAZO INJ 4.5 GM in SODIUM CHLORIDE 0.9% (POP) 100 ML IV (23:12)
[2024-12-29 23:54] VITALS: TEMP 36.6
[2024-12-30] VITALS (12 sets, daily range): BP systolic 133–170; BP diastolic 57–81; PULSE 40–64; RESP 17–97; TEMP 36.2–37.1; O2SAT 93–100
[2024-12-30] MEDS: DOXYCYCLINE INJ 100 MG in SODIUM CHLORIDE 0.9% (POP) 100 ML IV ×3 (00:09→21:45)
--- NOTE | 2024-12-30 01:15 | ESHP_ITS ---
Documentation for date of: 12/30/24 HPI History of Present Illness Chief complaint: Bilateral leg swelling History of present illness: 64-year-old male with past medical history of hypertension, diabetes, heart failure with preserved ejection fraction, coronary artery disease, COPD, atrial fibrillation, seizures, hyperlipidemia who presents to the ED due to bilateral lower extremity edema. Patient was discharged 2 to 3 weeks ago from [facility] went to live with the friends house. Patient later started developing edema that continued getting worse to the point that the patient stood up to go to the bathroom and developed excruciating pain rated 10 out of 10 described as sharp and worse on the left compared to the right. Patient then developed some blisters lower extremities which popped seem to have gotten worse and not healed. Patient is also not sure if she has had fevers. At this time denies chills, shortness of breath, chest pain, abdominal pain, nausea, vomiting recent travel, sick contacts. ED course: ED vitals: BP 129/62, HR 48, RR 23, temperature 100.1 ?F, saturating 94% on room air ED labs: Leukocytosis, normocytic anemia, BUN 40, creatinine 1.8, EGFR 42, glucose 299, UA negative chest x-ray negative, EKG S[place] atrial fibrillation with slow ventricular response PMHx: As above SX Hx: S/p spinal stenosis surgery of cervical vertebra, appendectomy Social Hx former smoker, denies illicit substances, drinks 1 or 2 beers every now and again FH X: Unremarkable Allergies: Atorvastatin, lisinopril, sulfa, trimethoprim Review of Systems Review of Systems Systems Reviewed: All systems reviewed, normal except as documented Narrative Review of Systems: All 12 systems reviewed and found normal less otherwise stated in the HPI Exam Vital Signs Temp Pulse Resp BP Pulse Ox O2 Del Method 97.9 F 48 L 23 H 129/62 94 L Room Air 12/29/24 23:54 12/29/24 21:00 12/29/24 20:39 12/29/24 20:39 12/29/24 20:39 12/29/24 20:39 Narrative Exam Physical Exam GENERAL: NAD, AAOx3, obese HEENT: Moist mucosa. Eyes open, symmetrical, & clear CARDIO: Heart RRR, no obvious murmurs PULM: No noted coughing/dyspnea CTA B/L, no R/W/R GI: Abdomen soft, nondistended, no pain on palpation. BSx4 SKIN/MSK/EXT: Bilateral lower extremity edema up to the knee, open blisters in the bilateral lower extremities draining serosanguineous fluid, no pain on palpation. Pedal pulses present B/L NEURO: AAOx3, no focal neuro deficits, able to move all 4 extremities Results: Labs 12/29/24 22:24 12/29/24 22:24 Labs: Short CBC 12/29/24 Range/Units 22:24 WBC 13.1 H (3.8-10.6) Thou/mm3 Hgb 11.8 L (13.5-16.0) g/dL Hct 35.7 L (41.0-53.0) % Plt Count 391 D (140-440) Thou/mm3 BMP 12/29/24 22:24 Sodium 139 Potassium 5.1 Chloride 107 Carbon Dioxide 21.1 BUN 40 H Creatinine 1.8 H Glucose 299 H Calcium 8.5 Cardiac Enzymes 12/29/24 Range/Units 22:24 Troponin I 0.025 (0.0-0.045) ng/mL Liver Function 12/29/24 Range/Units 22:24 Total Bilirubin 0.4 (0.3-1.2) mg/dL AST 11 (0-34) U/L ALT 8 L (10-49) U/L Alkaline Phosphatase 45 L (46-116) U/L Albumin 3.7 (3.4-4.8) gm/dL Urine 12/29/24 Range/Units 22:15 Urine Color Yellow (Lt Yel-Yel) Urine Clarity Clear (Clear/Hazy) Urine pH 6.0 (5.0-7.0) Ur Specific [place] 1.041 H (1.001-1.035) Urine Protein 1+ A (Neg - Trace) Urine Glucose (UA) Trace (Negative) Quality Measures Quality Measures sepsis Current suspected stage: sepsis Possible source: skin/soft tissue Blood cultures ordered: yes Antibiotic ordered: Yes Medications Home Medications and Allergies Home Medications ?Medication ?Instructions ?Recorded ?Confirmed ?Type aspirin 81 mg chewable tablet 81 mg PO QDAY 11/09/24 0 11/09/24 History bisacodyl 10 mg rectal suppository 10 mg AR Q3D PRN co nstipation 11/09/24 11/09/24 History insulin aspar prt-insulin aspart 1 sliding scale dose subcut 11/09/24 11/09/24 History 100 unit/mL (70-30) subcutaneous USEASDIRECTD soln (Novolog Mix 70-30 U-100 Insuln) magnesium hydroxide 400 mg/5 mL 30 ml PO Q3D PRN const ipation 11/09/24 11/09/24 History oral suspension (Milk of Magnesia) risperidone 3 mg tablet (Risperdal) 3 mg PO QDAY 11/0911/09/24 History rivaroxaban 20 mg tablet 20 mg PO QDAY 11/09/2411/09 History sevelamer carbonate 800 mg tablet 800 mg PO TID 11/09/24 History (Renvela) sodium phosphates 19 gram-7 118 ml AR Q3D PRN constipa tion 11/09/24 11/09/24 History gram/118 mL enema (Enema) tamsulosin 0.4 mg capsule 0.4 mg PO HS 11/09/24 History vitamin B complex-vitamin C-folic 1 tab PO QDAY 11/09/24 History acid 0.8 mg tablet (Dialyvite 800) Allergies Allergy/AdvReac Type Severity Reaction Status Date / Time atorvastatin Allergy Verified 08/09/24 13:49 lisinopril Allergy Verified 08/09/24 13:49 sulfamethoxazole (From Allergy Verified 08/09/24 13:49 Bactrim) trimethoprim (From Bactrim) Allergy Verified 08/09/24 13:49 Visit Medications Acetaminophen (Acetaminophen 325 Mg Tablet) 650 mg PO Q6H PRN PRN Reason: Fever >99.5 Stop: 01/29/25 01:04 Acetaminophen (Acetaminophen 325 Mg Tablet) 1,000 mg PO Q6H PRN PRN Reason: PAIN SCALE 1-3 (mild Stop: 01/29/25 01:04 Cephalexin HCl (Cephalexin 250 Mg Capsule) 500 mg PO QID [facility] Stop: 01/06/25 05:59 Docusate Sodium (Docusate Sod 100 Mg Capsule) 100 mg PO QDAY [facility]; Protocol Stop: 01/29/25 08:59 Enoxaparin Sodium (Enoxaparin Sod Inj 40 Mg/0.4 Ml Syringe) 40 mg SC QDAY [facility] Stop: 01/13/25 08:59 Doxycycline Hyclate 100 mg/ (Sodium Chloride) 100 mls @ 100 mls/hr IV BID ASHWIN Stop: 01/06/25 08:59 Ondansetron HCl (Ondansetron Inj 2 Mg/Ml Inj 2 Ml) 4 mg IVP Q6H PRN; Protocol PRN Reason: NAUSEA OR VOMITING Stop: 01/29/25 01:04 Oxycodone/Acetaminophen (Oxycodone/Apap 5/325 Tablet) 1 tab PO Q6H PRN PRN Reason: PAIN SCALE 4-6 (Moderate Stop: 01/04/25 01:04 Sennosides (Senna Tablet) 1 tab PO QDAY ASHWIN; Protocol Stop: 01/29/25 08:59 Discontinued Medications Piperacillin Sod/Tazobactam (Sod 4.5 gm/ Sodium Chloride) 100 mls @ 200 mls/hr IV X1 ONE Stop: 12/29/24 22:39 Last Infusion: 12/29/24 23:42 Dose: Infused Doxycycline Hyclate 100 mg/ (Sodium Chloride) 100 mls @ 100 mls/hr IV X1 ONE Stop: 12/29/24 23:08 Last Admin: 12/30/24 00:09 Dose: 100 mls/hr Acetaminophen (Ofirmev Inj) 1,000 mg in 100 mls @ 250 mls/hr IV X1 ONE Stop: 12/29/24 22:34 Last Infusion: 12/29/24 23:20 Dose: Infused Sodium Chloride (Ns) 500 mls @ 999 mls/hr IV .Q31M ONE Stop: 12/30/24 00:42 Ketorolac Tromethamine (Ketorolac Inj 30 Mg/Ml Vial) 30 mg IVP X1 ONE Stop: 12/29/24 22:12 Last Admin: 12/29/24 22:54 Dose: 30 mg Assessment & Plan Plan 64-year-old male past medical history of hypertension, diabetes, HFpEF, CAD, COPD, A-fib, seizures, hyperlipidemia who presents to the ED with bilateral leg swelling. Patient is admitted for cellulitis. #Sepsis secondary to #Bilateral lower extremity cellulitis 2 to 3 weeks of progressive leg swelling with blisters that popped and are open and draining Patient went and walked to the bathroom and developed excruciating pain rated 10 out of 10 and sharp in both legs but more pronounced on the left compared to the right Patient with leukocytosis, low-grade fever, tachypneic, with endorgan damage ARIANA ED gave 500 mL bolus, did not give full sepsis bolus due to history of heart failure ? Keflex ? Doxycycline ? Wound care ? Follow-up cultures ? Bilateral lower extremity arterial/venous ultrasound #Acute Kidney injury on CKD stage IIIb ? Got IV fluids in the ED ? Avoid nephrotoxins ? Renally dose medications #HFpEF [50%] #A-fib #Hypertension #Hyperlipidemia #CAD #BPH ?On Xarelto ? Diltiazem ? Bumex ? Aspirin ? Tamsulosin #History of seizure disorder Patient states he has history of seizure disorder however does not remember what medications he takes or the dosages ? Pending med rec and resume as reconciled Health Maintenance: Disposition: Telemetry Fluids: None Feeding: Cardiac Thrombo prophylaxis: Xarelto Gastric Ulcer prophylaxis: None CODE STATUS: Full code Case discussed with my attending Dr. Aissatou Guerrero MD PGY-1 Attending Provider Attestation/Addendum I, Jaz Reyez DO, attest that I was physically present for the simmons portions of the service and evaluated the patient with the resident and I reviewed and discussed the case with the resident and agree with the resident's findings and plans of care as documented above patient is a 64-year-old male with past medical history of hypertension, diabetes, HFpEF, CAD, COPD, A-fib, seizures and hyperlipidemia who presents to the ED with worsening bilateral lower extremity edema, erythema and pain. Patient states that he was recently [facility] from [facility] about [facility] ago and has been staying with a friend. There is no bed available for him and patient sleeps in a recliner. He states that he has tried keeping his legs elevated, but only saw some mild improvement with his edema. Patient states that he tried to walk to the bathroom this morning and had excruciating pain in his bilateral lower extremities after a blister had popped. He states that there has been worsening blisters and some weeping from his bilateral lower extremities. He denies any fevers, chills, shortness of breath, chest pain otherwise. Patient is very tender to palpation in his bilateral lower extremities with 4+ pitting edema. There are open beefy red ulcers on his right dorsum of the foot as well as right posterior medial aspect of distal calf. Patient states that he has been compliant with his medications at home and has been taking his water pill at home. He denies any issues with urination. He was noted to have a temperature of 100.1 in the ED and leukocytosis of 13.1 on presentation. He is noted to have ARIANA 1.8 and BUN of 40. Urine at bedside appears very dark and concentrated. Patient is obese with a BMI of 38.5. He states that edema has been limiting his daily activities due to the blisters and pain. Will admit patient to telemetry for further workup and medical management of bilateral lower extremity cellulitis likely due to venous insufficiency in the setting of obesity. Will start patient on Bumex 2 mg IV twice daily and monitor ins and outs. If ARIANA worsens, consider consulting nephrology. Will start on Doxy and Keflex for coverage of cellulitis. Will have wound care evaluate bilateral lower extremities. Patient would likely benefit from compression wrapping of bilateral lower extremities once edema has improved. Patient does take Xarelto at home for A-fib, but will further assess arteries and rule out any DVT in the setting of venous versus arterial insufficiency
--- NOTE | 2024-12-30 01:47 | XR_ITS ---
Examination: Arterial duplex lower extremity study. Date and time of exam: December 30, 2024 0643 hours INDICATIONS: Leg pain with nonhealing open wounds and ulcers in the legs notice beginning 2 weeks ago Findings: Duplex sonographic imaging of the lower extremity arteries using B-mode/Mayo scale imaging and Doppler spectral analysis and color flow. Right common femoral artery demonstrates triphasic flow. Right superficial femoral artery demonstrates triphasic flow. Right popliteal artery demonstrates triphasic flow. Right posterior tibial artery demonstrated monophasic flow. Left common femoral artery demonstrates triphasic flow. Left superficial femoral artery demonstrates triphasic flow. Left popliteal artery demonstrates triphasic flow. Left posterior tibial artery demonstrated monophasic flow. Impression: Ankle-brachial indices have not been performed, which may be secondary to the leg wounds. Clinical correlation advised If possible this patient should return for ankle brachial indices Abnormal arterial waveforms bilaterally as above suspicious for arteriosclerotic disease, recommend correlation with CTA abdominal aorta iliofemoral runoff with intravenous contrast
--- NOTE | 2024-12-30 01:53 | XR_ITS ---
Examination: Venous duplex lower extremity sonogram, bilateral. Date and time of exam: December 30, 2024 0619 hours INDICATIONS: Bilateral leg pain beginning 2 weeks ago Technique: Multiple sonographic images of the deep venous system have been obtained. B-mode/2-D grayscale imaging of vascular structures and Doppler spectral analysis (waveforms) and color performed Both legs are examined. Findings: Deep venous systems do not demonstrate abnormal echogenicity. All visualized deep veins exhibit compressibility. All visualized deep veins exhibit augmentation. Impression: Negative for deep vein thrombosis
[2024-12-30] MEDS: MORPHINE SULF INJ 10 MG/ML VIAL 2 MG IVP ×2 (02:58→09:28)
[2024-12-30] MEDS: BUMETANIDE INJ 0.25 MG/ML VIAL 4 ML 2 MG IVP ×2 (05:45→17:45)
[2024-12-30] MEDS: cephALEXin 250 MG CAPSULE 500 MG PO ×4 (05:45→21:44)
[2024-12-30 06:13] LABS: Basophils # (Auto) 0.1 Thou/mm3 (0.0-0.2); Basophils % (Auto) 1 % (0-2.5); Eosinophils # (Auto) 0.2 Thou/mm3 (0.0-0.5); Eosinophils % (Auto) 2 % (0-10); Hematocrit 36.4 % (41.0-53.0); Hemoglobin 11.3 g/dL (13.5-16.0); Immature Granulocytes % (Auto) 0 % (0-0); Immature Granulocytes Auto 0.04 Thou/mm3 (0.00-0.00); Lymphocytes % (Auto) 20 % (10-50); Mean Corpuscular Hemoglobin 27.2 pg (25.0-35.0); Mean Corpuscular Volume 88 fL (80-100); Monocytes # (Auto) 0.8 Thou/mm3 (0.0-0.8); Monocytes % (Auto) 8 % (0-12); Neutrophils # (Auto) 6.9 Thou/mm3 (1.8-7.7); Neutrophils % (Auto) 69 % (37-80); Nucleated Red Blood Cell % 0 /100 WBC (0); Platelet Count 337 Thou/mm3 (140-440); RDW Standard Deviation 50.7 fL (35.1-43.9); Red Blood Count 4.15 Miln/mm3 (4.50-5.90)
[2024-12-30 06:28] LABS: Alanine Aminotransferase 8 U/L (10-49); Albumin, Serum 3.6 gm/dL (3.4-4.8); Albumin/Globulin Ratio 1.2 (1.2-2.2); Alkaline Phosphatase 42 U/L (46-116); Anion Gap 10 (7-16); Aspartate Amino Transferase 10 U/L (0-34); BUN/Creatinine Ratio 21 Ratio (12-20); Bilirubin,Total 0.3 mg/dL (0.3-1.2); Blood Urea Nitrogen 44 mg/dL (9-23); Calcium 8.5 mg/dL (8.3-10.6); Calcium (Corrected) 8.8 mg/dL (8.5-10.1); Carbon Dioxide 23.8 mMol/L (20.0-31.0); Chloride 106 mMol/L (98-107); Creatinine (Component) 2.1 mg/dL (0.6-1.3); Estimated Creatinine Clearance 52.2 mL/min (>60); Glucose 221 mg/dL (74-106); Osmolality,Calculated 297 (275-295); Sodium 140 mMol/L (136-145); Thyroid Stimulating Hormone 0.95 uIU/mL (0.55-4.78); Total Protein 6.6 gm/dL (5.7-8.2); eGFR 35 See Note
[2024-12-30 07:02] LABS: Glucose Estimated Average 174 mg/dL (80-131); Hemoglobin A1C 7.7 % Hgb (4.8-6.0)
[2024-12-30] MEDS: INSULIN LISPRO (AdmeLOG) 1 UNIT/0.01 ML UNIT SC ×3 (08:01→16:37)
[2024-12-30] MEDS: DOCUSATE SOD 100 MG CAPSULE PO (09:29)
[2024-12-30] MEDS: ASPIRIN EC 81 MG TABEC PO (09:29)
[2024-12-30] MEDS: SENNA TABLET 1 TAB PO (09:29)
[2024-12-30] MEDS: DILTIAZEM CD 120 MG CAPCR PO (09:29)
[2024-12-30] MEDS: RIVAROXABAN 10 MG TABLET 20 MG PO (09:30)
[2024-12-30] MEDS: TAMSULOSIN HCL 0.4 MG CAPSULE PO (09:30)
--- NOTE | 2024-12-30 09:54 | ESPR_ITS ---
Documentation for date of: 12/30/24 Subjective Subjective Interval history: New overnight admit. Patient was admitted for bilateral leg swelling and leg pain.?Patient seen and examined at bedside this AM. Patient continues to complain of pain in the legs, stating I need some pain meds. ?He reports that the swelling acutely worsened 1 day prior to coming in. He noted gradual increase in swelling prior to that. He endorses taking a water pill at home but unable to tell name and dosage. There is additionally a history of seizures documented in the chart but no recent history of anti-epileptic medication in medication reconciliations, including prior discharge summaries. Called patient's pharmacy, [facility] [place], who confirmed that patient has medications last prescribed and picked up in July 2024 but no recent renewals or pick-ups. There was no anti-epileptic medication on file. Patient apparently with history of afib, and takes Xarelto. On EKG was shown to have afib with slow ventricular response, rate of 46. Today was having bigeminy noted on Telemetry. Cardiology was consulted in the setting of the slow afib. Labs and vitals were reviewed.?BP stable, patient saturating 93% on room air. No further complaints at this time. Review of systems otherwise negative except what is mentioned above. Exam Vital Signs Temp Pulse Resp BP Pulse Ox O2 Del Method 97.6 F 44 L 20 133/76 H 100 Room Air 12/30/24 08:00 12/30/24 09:29 12/30/24 08:00 12/30/24 09:29 12/30/24 08:00 12/30/24 08:00 Narrative Exam Physical Exam General: Awake and in no acute distress. Conversational and non-toxic appearing. HEENT: Normocephalic, atraumatic, mucous membranes moist. Heart: Regular rate and rhythm, normal S1 and S2, no murmurs. Lungs: Clear to auscultation with no wheezing or crackles. Abdomen: Soft, nondistended, nontender, positive bowel sounds. ?No guarding or rebound tenderness. Neurologic: Alert and oriented x3, no gross neurological deficit, and patient able to move all 4 extremities. Extremities: 4+ bilateral edema and diffuse anasarca, erythema of bilateral shins and broken blisters, tenderness to palpation, warm to touch Skin: No rash or ecchymoses. Objective Labs 01/01/25 04:54 01/01/25 04:54 Labs: Laboratory Results - last 24 hr 12/29/24 12/29/24 12/30/24 22:15 22:24 05:39 WBC 13.1 H 10.0 RBC 4.34 L 4.15 L Hgb 11.8 L 11.3 L Hct 35.7 L 36.4 L MCV 82 88 MCH 27.2 27.2 MCHC 33.1 31.0 RDW Std Deviation 47.5 H 50.7 H Plt Count 391 D 337 D Neut % (Auto) 80 69 Lymph % (Auto) 13 20 [place] % (Auto) 5 8 Eos % (Auto) 1 2 Baso % (Auto) 0 1 Neut # (Auto) 10.4 H 6.9 Lymph # (Auto) 1.7 2.0 [place] # (Auto) 0.7 0.8 Eos # (Auto) 0.2 0.2 Baso # (Auto) 0.1 0.1 Immature Gran # (Auto) 0.05 H 0.04 H Absolute Nucleated RBC 0.00 0.00 Immature Gran % 0 0 Nucleated RBC % 0 0 PT 11.7 INR 1.1 APTT 27.3 Sodium 139 140 Potassium 5.1 5.0 Chloride 107 106 Carbon Dioxide 21.1 23.8 Anion Gap 11 10 BUN 40 H 44 H Creatinine 1.8 H 2.1 H Estim Creat Clear Calc 60.8 L 52.2 L eGFR 42 L 35 L BUN/Creatinine Ratio 22 H 21 H Glucose [address] Glu mg/dL 174 H Hemoglobin A1c 7.7 H Calculated Osmolality 298 H 297 H Lactic Acid 1.8 Calcium 8.5 8.5 Corrected Calcium 8.7 8.8 Magnesium 2.0 Total Bilirubin 0.4 0.3 AST 11 10 ALT 8 L 8 L Alkaline Phosphatase 45 L 42 L Troponin I 0.025 Total Protein 6.7 6.6 Albumin 3.7 3.6 Globulin 3.0 3.0 Albumin/Globulin Ratio 1.2 1.2 Procalcitonin 0.43 TSH 0.95 Ur Collection Type Catheter Urine Color Yellow Urine Clarity Clear Urine pH 6.0 Ur Specific [place] 1.041 H Urine Protein 1+ A Urine Glucose (UA) Trace Urine Ketones Negative Urine Blood Negative Urine Nitrite Negative Urine Bilirubin Negative Urine Urobilinogen (Auto) 3.0 Ur Leukocyte Esterase Negative Urine RBC 0 Urine WBC 0 Ur Squamous Epith Cells < 1 Urine Bacteria None Quality Measures Quality Measures sepsis Current suspected stage: ruled out Possible source: skin/soft tissue Blood cultures ordered: yes Antibiotic ordered: Yes Assessment & Plan Assessment Current Active Medications: Generic Name Dose Route Start Last Admin Trade Name Freq PRN Reason Stop Dose Admin Acetaminophen 650 mg 12/30/24 01:05 Acetaminophen 325 Mg Tablet PO 01/29/25 01:04 Q6H PRN Fever >99.5 Acetaminophen 1,000 mg 12/30/24 01:05 Acetaminophen 325 Mg Tablet PO 01/29/25 01:04 Q6H PRN PAIN SCALE 1-3 (mild Aspirin 81 mg 12/30/24 09:00 12/30/24 09:29 Aspirin Ec 81 Mg Tabec PO 01/29/25 08:59 81 mg QDAY ASHWIN Administration Bumetanide 2 mg 12/30/24 06:00 12/30/24 05:45 Bumetanide Inj 0.25 Mg/Ml Vial 4 Ml IVP 01/29/25 05:59 2 mg BIDD ASHWIN Administration Cephalexin HCl 500 mg 12/30/24 06:00 12/30/24 05:45 Cephalexin 250 Mg Capsule PO 01/06/25 05:59 500 mg QID ASHWIN Administration Dextrose 25 ml 12/30/24 01:40 Dextrose 50%-Water Inj 50 Ml Syringe IV 01/29/25 01:39 Q15MIN PRN BG 50-70 responsive npo pt Dextrose 50 ml 12/30/24 01:40 Dextrose 50%-Water Inj 50 Ml Syringe IV 01/29/25 01:39 Q15MIN PRN BG <50 OR BG <70 & pt unresponsive Diltiazem HCl 120 mg 12/30/24 09:00 12/30/24 09:29 Diltiazem Cd 120 Mg Capcr PO 01/29/25 08:59 120 mg QDAY ASHWIN Administration Docusate Sodium 100 mg 12/30/24 09:00 12/30/24 09:29 Docusate Sod 100 Mg Capsule PO 01/29/25 08:59 100 mg QDAY ASHWIN Administration Protocol Glucagon 1 mg 12/30/24 01:40 Glucagon Inj 1 Mg Vial IM Q15MIN PRN BG <70, and no IV access Doxycycline Hyclate 100 mg/ 100 mls @ 100 mls/hr 12/30/24 09:00 12/30/24 09:27 Sodium Chloride IV 01/06/25 08:59 100 mls/hr BID ASHWIN Administration Insulin Glargine 10 unit 12/30/24 09:45 Insulin Glargine (Lantus) 5 Unit/0.05 Ml (Per 5 Units) SC 01/29/25 09:44 QDAY ASHWIN Insulin Human Lispro 0 unit 12/30/24 07:30 12/30/24 08:01 Insulin Lispro (Admelog) 1 Unit/0.01 Ml Unit SC 01/29/25 07:29 1 unit AC ASHWIN Administration Protocol Morphine Sulfate 2 mg 12/30/24 02:33 12/30/24 09:28 Morphine Sulf Inj 10 Mg/Ml Vial IVP 01/04/25 02:01 2 mg Q4HR PRN Administration PAIN SCALE 4-10(Mod-Sev Ondansetron HCl 4 mg 12/30/24 01:05 Ondansetron Inj 2 Mg/Ml Inj 2 Ml IVP 01/29/25 01:04 Q6H PRN NAUSEA OR VOMITING Protocol Rivaroxaban 20 mg 12/30/24 09:00 12/30/24 09:30 Rivaroxaban 10 Mg Tablet PO 01/29/25 08:59 20 mg QDAY [facility] Administration Sennosides 1 tab 12/30/24 09:00 12/30/24 09:29 Senna Tablet PO 01/29/25 08:59 1 tab QDAY [facility] Administration Protocol Tamsulosin HCl 0.4 mg 12/30/24 09:00 12/30/24 09:30 Tamsulosin Hcl 0.4 Mg Capsule PO 01/29/25 08:59 0.4 mg QDAY [facility] Administration Plan 64-year-old male past medical history of hypertension, diabetes, HFpEF, CAD, COPD, A-fib, seizures, hyperlipidemia who presents to the ED with bilateral leg swelling. Patient is admitted for cellulitis. #Bilateral lower extremity swelling, secondary to #Anasarca #CHF exacerbation, HFpEF Given bilateral and symmetric nature of the exam findings it was felt that swelling was more due to anasarca in the setting of CHF rather than cellulitis. ARIANA may be due to cardiorenal. - Continue with Bumex 2 mg IV BID - Monitor strict I&Os #SIRS #?Bilateral lower extremity cellulitis 2 to 3 weeks of progressive leg swelling with blisters that popped and are open and draining Patient went and walked to the bathroom and developed excruciating pain rated 10 out of 10 and sharp in both legs but more pronounced on the left compared to the right Patient with leukocytosis, low-grade fever, tachypneic, with endorgan damage ARIANA ED gave 500 mL bolus, did not give full sepsis bolus due to history of heart failure Bilateral lower extremity arterial was unable to assess ankle branchial index Venous ultrasound was negative for DVTs ? Continue Keflex for now ? Continue Doxycycline for now ? Wound care ? Follow-up cultures #Bigeminy #PVCs #Afib with slow ventricular response Initial EKG on admission showed slow afib with RvR. 12/30 patient noted to have bigeminy on tele. Patient not having any chest symptoms. - Consulted cardiology for any possible recommendations #Acute kidney injury on CKD stage IIIb #Most likely cardiorenal syndrome Got IV fluids in the ED. Patient creatinine worsened 1.8->2.1 - Will continue with IV diuresis and assess response ? Avoid nephrotoxins ? Renally dose medications #HFpEF [50%] #A-fib #Hypertension #Hyperlipidemia #CAD #BPH Ctoninue home medications ? On Xarelto ? Diltiazem ? Aspirin ? Tamsulosin #History of seizure disorder Patient states he has history of seizure disorder however does not remember what medications he takes or the dosages Called patient's pharmacy and there are no prescriptions for seizure meds. No documentation in chart last few admissions for seizure medication, so likely is not on one at this time. Health Maintenance: Disposition: Telemetry Fluids: None Feeding: Cardiac Thrombo prophylaxis: Xarelto Gastric Ulcer prophylaxis: None CODE STATUS: Full code Patient plan of care was discussed with the attending physician, Dr. Kidd. Karma Patiño, PGY-2 Attending Provider Attestation/Addendum I attest that I was physically present for the evaluation, physical examination, lab and imaging review of the patient with the residents. I discussed the case with the residents and agree with the findings and plans of care as documented above. Todd Kidd MD
[2024-12-30] MEDS: INSULIN GLARGINE (Lantus) 5 UNIT/0.05 ML (PER 5 UNITS) 10 UNIT SC (10:26)
--- NOTE | 2024-12-30 11:36 | EKG_ITS ---
[facility] Test Date: 2024-12-30 Pat Name: YNES NEIL Department: Room: S263A Gender: Male [employer] Supervisor: SAMUEL : 1960 Requested By: Karma Patiño Order Number: [id number] Reading MD: Karma Patiño Measurements Intervals [place] Rate: 64 P: OK: QRS: 77 QRSD: 80 T: 42 QT: 400 QTc: 414 Interpretive Statements SUPRAVENTRICULAR RHYTHM POSSIBLE RIGHT VENTRICULAR CONDUCTION DELAY Compared to ECG 12/29/2024 21:31:58 Supraventricular rhythm now present Atrial fibrillation no longer present /store/S0/[id number]/[id number].pdf
--- NOTE | 2024-12-30 12:34 | PC.SS ---
SS met with patient regarding his d/c plan. Pt is alert/oriented. Pt was admitted for Bilateral Leg Swelling. Pt confirmed demographic and contact information is correct on facesheet. Patient's phone# is [phone]. Pt resides with his friend. Pt ambulates using a 4 wheel walker. Pt is ok with all ADLs. Pt named his friend, Wyatt Wallace medical decision maker if he is unable. SS provided pt with verbal options for d/c to home or SNF. Patient?s choice is to return home upon d/c. Pt state he is followed by [facility] and requests to continue with them. Pt is requesting to establish PCP at [facility]. SS attempted contact them but was unsuccessful (out to lunch). Pt states his nephew, Jonathan Bella will provide transportation. D/C plan: Return home Home Health: [facility] Next of Kin: Wyatt Rodrigo, friend, phone# [phone] PCP: Establish at [facility] in [place] Address: Correct on facesheet Patient's
--- NOTE | 2024-12-30 12:37 | PC.SS ---
[facility]
[2024-12-30] MEDS: HYDROcodone/APAP 5/325 TABLET 1 TAB PO ×2 (15:29→21:45)
--- NOTE | 2024-12-30 15:55 | PD.RESPRO ---
Documentation for date of: 12/30/24 Exam Vital Signs Temp Pulse Resp BP Pulse Ox O2 Del Method 97.2 F 57 L 17 147/81 H 93 L Room Air 12/30/24 12:00 12/30/24 12:00 12/30/24 12:00 12/30/24 12:00 12/30/24 12:00 12/30/24 12:00 Objective Labs 12/30/24 05:39 12/30/24 05:39 Labs: Laboratory Results - last 24 hr 12/29/24 12/29/24 12/30/24 22:15 22:24 05:39 WBC 13.1 H 10.0 RBC 4.34 L 4.15 L Hgb 11.8 L 11.3 L Hct 35.7 L 36.4 L MCV 82 88 MCH 27.2 27.2 MCHC 33.1 31.0 RDW Std Deviation 47.5 H 50.7 H Plt Count 391 D 337 D Neut % (Auto) 80 69 Lymph % (Auto) 13 20 Turner % (Auto) 5 8 Eos % (Auto) 1 2 Baso % (Auto) 0 1 Neut # (Auto) 10.4 H 6.9 Lymph # (Auto) 1.7 2.0 Turner # (Auto) 0.7 0.8 Eos # (Auto) 0.2 0.2 Baso # (Auto) 0.1 0.1 Immature Gran # (Auto) 0.05 H 0.04 H Absolute Nucleated RBC 0.00 0.00 Immature Gran % 0 0 Nucleated RBC % 0 0 PT 11.7 INR 1.1 APTT 27.3 Sodium 139 140 Potassium 5.1 5.0 Chloride 107 106 Carbon Dioxide 21.1 23.8 Anion Gap 11 10 BUN 40 H 44 H Creatinine 1.8 H 2.1 H Estim Creat Clear Calc 60.8 L 52.2 L eGFR 42 L 35 L BUN/Creatinine Ratio 22 H 21 H Glucose [address] Glu mg/dL 174 H Hemoglobin A1c 7.7 H Calculated Osmolality 298 H 297 H Lactic Acid 1.8 Calcium 8.5 8.5 Corrected Calcium 8.7 8.8 Magnesium 2.0 Total Bilirubin 0.4 0.3 AST 11 10 ALT 8 L 8 L Alkaline Phosphatase 45 L 42 L Troponin I 0.025 Total Protein 6.7 6.6 Albumin 3.7 3.6 Globulin 3.0 3.0 Albumin/Globulin Ratio 1.2 1.2 Procalcitonin 0.43 TSH 0.95 Ur Collection Type Catheter Urine Color Yellow Urine Clarity Clear Urine pH 6.0 Ur Specific [place] 1.041 H Urine Protein 1+ A Urine Glucose (UA) Trace Urine Ketones Negative Urine Blood Negative Urine Nitrite Negative Urine Bilirubin Negative Urine Urobilinogen (Auto) 3.0 Ur Leukocyte Esterase Negative Urine RBC 0 Urine WBC 0 Ur Squamous Epith Cells < 1 Urine Bacteria None Quality Measures Quality Measures sepsis Possible source: skin/soft tissue Blood cultures ordered: yes Assessment & Plan Assessment Current Active Medications: Generic Name Dose Route Start Last Admin Trade Name Freq PRN Reason Stop Dose Admin Acetaminophen 650 mg 12/30/24 01:05 Acetaminophen 325 Mg Tablet PO 01/29/25 01:04 Q6H PRN Fever >99.5 Acetaminophen 1,000 mg 12/30/24 01:05 Acetaminophen 325 Mg Tablet PO 01/29/25 01:04 Q6H PRN PAIN SCALE 1-3 (mild Hydrocodone Bitart/Acetaminophen 1 tab 12/30/24 15:34 Hydrocodone/Apap 5/325 Tablet PO 01/04/25 15:11 Q6HR PRN PAIN SCALE 4-6 Aspirin 81 mg 12/30/24 09:00 12/30/24 09:29 Aspirin Ec 81 Mg Tabec PO 01/29/25 08:59 81 mg QDAY ASHWIN Administration Bumetanide 2 mg 12/30/24 06:00 12/30/24 05:45 Bumetanide Inj 0.25 Mg/Ml Vial 4 Ml IVP 01/29/25 05:59 2 mg BIDD ASHWIN Administration Cephalexin HCl 500 mg 12/30/24 06:00 12/30/24 12:49 Cephalexin 250 Mg Capsule PO 01/06/25 05:59 500 mg QID ASHWIN Administration Dextrose 25 ml 12/30/24 01:40 Dextrose 50%-Water Inj 50 Ml Syringe IV 01/29/25 01:39 Q15MIN PRN BG 50-70 responsive npo pt Dextrose 50 ml 12/30/24 01:40 Dextrose 50%-Water Inj 50 Ml Syringe IV 01/29/25 01:39 Q15MIN PRN BG <50 OR BG <70 & pt unresponsive Diltiazem HCl 120 mg 12/30/24 09:00 12/30/24 09:29 Diltiazem Cd 120 Mg Capcr PO 01/29/25 08:59 120 mg QDAY ASHWIN Administration Docusate Sodium 100 mg 12/30/24 09:00 12/30/24 09:29 Docusate Sod 100 Mg Capsule PO 01/29/25 08:59 100 mg QDAY ASHWIN Administration Protocol Glucagon 1 mg 12/30/24 01:40 Glucagon Inj 1 Mg Vial IM Q15MIN PRN BG <70, and no IV access Doxycycline Hyclate 100 mg/ 100 mls @ 100 mls/hr 12/30/24 09:00 12/30/24 09:27 Sodium Chloride IV 01/06/25 08:59 100 mls/hr BID ASHWIN Administration Insulin Glargine 10 unit 12/30/24 09:45 12/30/24 10:26 Insulin Glargine (Lantus) 5 Unit/0.05 Ml (Per 5 Units) SC 01/29/25 09:44 10 unit QDAY ASHWIN Administration Insulin Human Lispro 0 unit 12/30/24 07:30 12/30/24 11:50 Insulin Lispro (Admelog) 1 Unit/0.01 Ml Unit SC 01/29/25 07:29 2 unit AC ASHWIN Administration Protocol Morphine Sulfate 2 mg 12/30/24 15:29 Morphine Sulf Inj 10 Mg/Ml Vial IVP 01/04/25 02:01 Q4HR PRN PAIN SCALE 7-10 (Severe Ondansetron HCl 4 mg 12/30/24 01:05 Ondansetron Inj 2 Mg/Ml Inj 2 Ml IVP 01/29/25 01:04 Q6H PRN NAUSEA OR VOMITING Protocol Rivaroxaban 20 mg 12/30/24 09:00 12/30/24 09:30 Rivaroxaban 10 Mg Tablet PO 01/29/25 08:59 20 mg QDAY ASHWIN Administration Sennosides 1 tab 12/30/24 09:00 12/30/24 09:29 Senna Tablet PO 01/29/25 08:59 1 tab QDAY ASHWIN Administration Protocol Tamsulosin HCl 0.4 mg 12/30/24 09:00 12/30/24 09:30 Tamsulosin Hcl 0.4 Mg Capsule PO 01/29/25 08:59 0.4 mg QDAY ASHWIN Administration
--- NOTE | 2024-12-30 19:23 | PD.RESCONSUL ---
HPI Data of Consult Requesting Physician: Oscar Oliveira DO Admitting Provider: Jaz Reyez DO Attending Provider: Oscar Oliveira DO Primary Care Provider: Joe Sorenson MD Consult Narrative History of present illness: cc: leg swelling and pain Patient is a 64-year-old male with a past medical history of essential hypertension, hyperlipidemia, CAD, diabetes mellitus type 2 insulin-dependent, CHF 55-60% (11/12/2024), paroxysmal atrial fibrillation, history of seizures. obesity, and history of MRSA bacteremia. Patient presented to the ER via ambulance with chief complain of bilateral lower extremity swelling and lower extremity pain 05/06. Patient recently completed rehabilation at [facility]. Patient denied chest pain or SOB. Patient denied orthopnea or Paroxysmal nocturnal orthopnea. Patient stated he has continue to use all his medication as prescribed. Patient admitted for Sepsis, rule out and bilateral lower extremity cellulitis. ER Course: Vitals: BP 129/62, HR 48, RR 23, T 100.1, spO2 94 RA CBC: WBC 13.1, 11.8 hgb, hct 35.7, mcv 82, pl 391 CMP: Na 139, K 5.1, Cl 107, bicarb 21.1, BUN H, CR 1.8, BUN/Cr 22, GFR 42 Glucose 299 Lactic 1.8 Troponin 0.025 Venous Doppler Negative Chest X-ray: no significant cardiac enlargement, lungs are clear Cardiology Consulted for bigeminy, PVC, with history of atrial fibrillation PMH: -Diabetes Mellitus Type 2 insulin dependent -Hypertension -Hyperlipidemia -CAD -CHF -Atrial fibrillation on Eliquis (currently holding given possible CT-guided biopsy for nodules noted on chest x-ray) -MARK -History of seizures -History of depression -BPH -Spinal Stenosis s/p surgery -Obesity Past Surgical History: -Appendectomy -Disc repair secondary to spinal stenosis Home Medication: -Insulin aspart, sliding scale -Aspirin 81 mg qday -Diltiazem 120 mg Qday -Furosemide 40 mg Qday -Rivaroxaban 20 gm qday -Paroxetine 40 mg PO -Mirtazapine 45 mg HS -Topiramate 50 g HS -Tamsulin 0.4 -Risperidone 6 mg HS -Sevelamer 800 PO TID Social History: [id number] history, smoked for 20 years about 2 packs/day, quit 15 years ago Denied alcohol use Denied illicit drug use Allergies: Atorvastatin Lisinopril Bactrim Code Status: Full code cc:: cc: Oscar Oliveira, Review of Systems Review of Systems Narrative Review of Systems: General appearance:unsure weight change, NO fatigue, NO weakness, NO fever, NO chills, NO night sweats, No cough Skin: NO rash, NO itching, NO sores, NO moles HEENT: NO Trauma, NO nausea, NO vomiting, NO visual changes, NO blurry vision, NO double vision, NO tinnitus, NO vertigo, NO ear discharge, NO rhinorrhea, NO stuffiness, NO sneezing, NO allergy, NO epistaxis. NO Hoarseness, NO sore throat, NO swollen neck. Cardiac: NO Palpitations, NO dyspnea on exertion, NO orthopnea, NO paroxysmal nocturnal dyspnea, YES peripheral edema Respiratory: NO Shortness of Breath, NO Wheezing, NO Cough, NO Sputum, NO hemoptysis GI:NO appetite, NO nausea, NO vomiting, NO dysphagia, NO changes in bowel frequency, NO stool color, NO diarrhea, NO constipation, NO hemetemesis, NO hemorrhoids, NO melena, NO hematechezia, NO abdominal pain, NO jaundice Renal: NO frequency, NO hesitancy, NO urgency, NO hematuria, NO nocturia, NO incontinence MSK: NO muscle weakness, NO gout, NO arthritis, NO muscle stiffness Neuro: NO headaches, NO tremors, NO weakness, NO paralysis, NO seizures, NO loss of consciousness, NO numbness. Hem: NO anemia, NO easy bruising/bleeding, NO petechiae, NO purpura Endo: NO heat/cold intolerance, NO excessive sweating, NO polyuria, NO polydipsia, NO polyphagia, NO thyroid problems, YES diabetes Pysch: NO mood, NO anxiety, NO depression Exam Vital Signs Temp Pulse Resp BP Pulse Ox O2 Del Method 97.1 F 52 L 18 153/57 H 95 Room Air 12/30/24 16:00 12/30/24 17:45 12/30/24 16:00 12/30/24 17:45 12/30/24 16:00 12/30/24 16:00 Narrative Exam General Appearance: Alert & Oriented X3, obese male who is lying in bed in no acute distress HEENT: Skull symmetrical and atraumatic. Conjunctivae pale pink and moist. Pupils equal, round, reactive to light and accommodation (PERRL). External ear without lesion or discharge. Straight, nares patient, mucosa pink, no discharge. Cardio: Normal Rate and Rhythm with S1 and S2 heart sounds. Systolic Murmur over mitral region. No bruits on carotid auscultation. Peripheral edema noted, 3+ Lungs: Symmetric with good expansion. Chest and back non-tender. Breath sounds vesicular without crackles, wheezing or rhonchi Abdomen: Non-tender, Non-distended, Normal Reactive Bowel Sounds Neuro: Alert, cooperative, oriented to person, place, and time. Speech clear. CN grossly intact. Upper motor strength 5/5 and Lower motor strength 5/5. Sensation intact. Results Labs 12/31/24 05:00 12/31/24 05:00 Labs: Short CBC 12/29/24 12/30/24 Range/Units 22:24 05:39 WBC 13.1 H 10.0 (3.8-10.6) Thou/mm3 Hgb 11.8 L 11.3 L (13.5-16.0) g/dL Hct 35.7 L 36.4 L (41.0-53.0) % Plt Count 391 D 337 D (140-440) Thou/mm3 BMP 12/29/24 12/30/24 22:24 05:39 Sodium 139 140 Potassium 5.1 5.0 Chloride 107 106 Carbon Dioxide 21.1 23.8 BUN 40 H 44 H Creatinine 1.8 H 2.1 H Glucose 299 H 221 H D Calcium 8.5 8.5 Cardiac Enzymes 12/29/24 Range/Units 22:24 Troponin I 0.025 (0.0-0.045) ng/mL Liver Function 12/29/24 12/30/24 Range/Units 22:24 05:39 Total Bilirubin 0.4 0.3 (0.3-1.2) mg/dL AST 11 10 (0-34) U/L ALT 8 L 8 L (10-49) U/L Alkaline Phosphatase 45 L 42 L (46-116) U/L Albumin 3.7 3.6 (3.4-4.8) gm/dL Urine 12/29/24 Range/Units 22:15 Urine Color Yellow (Lt Yel-Yel) Urine Clarity Clear (Clear/Hazy) Urine pH 6.0 (5.0-7.0) Ur Specific [place] 1.041 H (1.001-1.035) Urine Protein 1+ A (Neg - Trace) Urine Glucose (UA) Trace (Negative) Quality Measures Quality Measures sepsis Current suspected stage: sepsis Possible source: skin/soft tissue Blood cultures ordered: yes Antibiotic ordered: Yes Medications Home Medications and Allergies Home Medications ?Medication ?Instructions ?Recorded ?Confirmed ?Type aspirin 81 mg chewable tablet 81 mg PO QDAY 11/09/24 11/09/24 History bisacodyl 10 mg rectal suppository 10 mg AK Q3D PRN constipation 11/09/24 11/09/24 History insulin aspar prt-insulin aspart 1 sliding scale dose subcut 11/09/24 11/09/24 History 100 unit/mL (70-30) subcutaneous USEASDIRECTD soln (Novolog Mix 70-30 U-100 Insuln) magnesium hydroxide 400 mg/5 mL 30 ml PO Q3D PRN constipation 11/09/24 11/09/24 History oral suspension (Milk of Magnesia) risperidone 3 mg tablet (Risperdal) 3 mg PO QDAY 11/09/24 11/09/24 History rivaroxaban 20 mg tablet 20 mg PO QDAY 11/09/24 11/09/24 History sevelamer carbonate 800 mg tablet 800 mg PO TID 11/09/24 11/09/24 History (Renvela) sodium phosphates 19 gram-7 118 ml AK Q3D PRN constipation 11/09/24 11/09/24 History gram/118 mL enema (Enema) tamsulosin 0.4 mg capsule 0.4 mg PO HS 11/09/24 11/09/24 History vitamin B complex-vitamin C-folic 1 tab PO QDAY 11/09/24 11/09/24 History acid 0.8 mg tablet (Dialyvite 800) Allergies Allergy/AdvReac Type Severity Reaction Status Date / Time atorvastatin Allergy Verified 08/09/24 13:49 lisinopril Allergy Verified 08/09/24 13:49 sulfamethoxazole (From Allergy Verified 08/09/24 13:49 Bactrim) trimethoprim (From Bactrim) Allergy Verified 08/09/24 13:49 Visit Medications Acetaminophen (Acetaminophen 325 Mg Tablet) 650 mg PO Q6H PRN PRN Reason: Fever >99.5 Stop: 01/29/25 01:04 Acetaminophen (Acetaminophen 325 Mg Tablet) 1,000 mg PO Q6H PRN PRN Reason: PAIN SCALE 1-3 (mild Stop: 01/29/25 01:04 Hydrocodone Bitart/Acetaminophen (Hydrocodone/Apap 5/325 Tablet) 1 tab PO Q6HR PRN PRN Reason: PAIN SCALE 4-6 Stop: 01/04/25 15:11 Aspirin (Aspirin Ec 81 Mg Tabec) 81 mg PO QDAY [facility] Stop: 01/29/25 08:59 Last Admin: 12/30/24 09:29 Dose: 81 mg Bumetanide (Bumetanide Inj 0.25 Mg/Ml Vial 4 Ml) 2 mg IVP BIDD [facility] Stop: 01/29/25 05:59 Last Admin: 12/30/24 17:45 Dose: 2 mg Cephalexin HCl (Cephalexin 250 Mg Capsule) 500 mg PO QID [facility] Stop: 01/06/25 05:59 Last Admin: 12/30/24 17:45 Dose: 500 mg Dextrose (Dextrose 50%-Water Inj 50 Ml Syringe) 25 ml IV Q15MIN PRN PRN Reason: BG 50-70 responsive npo pt Stop: 01/29/25 01:39 Dextrose (Dextrose 50%-Water Inj 50 Ml Syringe) 50 ml IV Q15MIN PRN PRN Reason: BG <50 OR BG <70 & pt unresponsive Stop: 01/29/25 01:39 Diltiazem HCl (Diltiazem Cd 120 Mg Capcr) 120 mg PO QDAY [facility] Stop: 01/29/25 08:59 Last Admin: 12/30/24 09:29 Dose: 120 mg Docusate Sodium (Docusate Sod 100 Mg Capsule) 100 mg PO QDAY [facility]; Protocol Stop: 01/29/25 08:59 Last Admin: 12/30/24 09:29 Dose: 100 mg Glucagon (Glucagon Inj 1 Mg Vial) 1 mg IM Q15MIN PRN PRN Reason: BG <70, and no IV access Doxycycline Hyclate 100 mg/ (Sodium Chloride) 100 mls @ 100 mls/hr IV BID [facility] Stop: 01/06/25 08:59 Last Admin: 12/30/24 09:27 Dose: 100 mls/hr Insulin Glargine (Insulin Glargine (Lantus) 5 Unit/0.05 Ml (Per 5 Units)) 10 unit SC QDAY [facility] Stop: 01/29/25 09:44 Last Admin: 12/30/24 10:26 Dose: 10 unit Insulin Human Lispro (Insulin Lispro (Admelog) 1 Unit/0.01 Ml Unit) 0 unit SC AC [facility]; Protocol Stop: 01/29/25 07:29 Last Admin: 12/30/24 16:37 Dose: 3 unit Morphine Sulfate (Morphine Sulf Inj 10 Mg/Ml Vial) 2 mg IVP Q4HR PRN PRN Reason: PAIN SCALE 7-10 (Severe Stop: 01/04/25 02:01 Ondansetron HCl (Ondansetron Inj 2 Mg/Ml Inj 2 Ml) 4 mg IVP Q6H PRN; Protocol PRN Reason: NAUSEA OR VOMITING Stop: 01/29/25 01:04 Rivaroxaban (Rivaroxaban 10 Mg Tablet) 20 mg PO QDAY [facility] Stop: 01/29/25 08:59 Last Admin: 12/30/24 09:30 Dose: 20 mg Sennosides (Senna Tablet) 1 tab PO QDAY [facility]; Protocol Stop: 01/29/25 08:59 Last Admin: 12/30/24 09:29 Dose: 1 tab Tamsulosin HCl (Tamsulosin Hcl 0.4 Mg Capsule) 0.4 mg PO QDAY [facility] Stop: 01/29/25 08:59 Last Admin: 12/30/24 09:30 Dose: 0.4 mg Discontinued Medications Hydrocodone Bitart/Acetaminophen (Hydrocodone/Apap 5/325 Tablet) 1 tab PO Q6HR PRN PRN Reason: PAIN SCALE 4-10(Mod-Sev Stop: 01/04/25 15:11 Last Admin: 12/30/24 15:29 Dose: 1 tab Enoxaparin Sodium (Enoxaparin Sod Inj 40 Mg/0.4 Ml Syringe) 40 mg SC QDAY [facility] Stop: 01/13/25 08:59 Piperacillin Sod/Tazobactam (Sod 4.5 gm/ Sodium Chloride) 100 mls @ 200 mls/hr IV X1 ONE Stop: 12/29/24 22:39 Last Infusion: 12/29/24 23:42 Dose: Infused Doxycycline Hyclate 100 mg/ (Sodium Chloride) 100 mls @ 100 mls/hr IV X1 ONE Stop: 12/29/24 23:08 Last Infusion: 12/30/24 01:09 Dose: Infused Acetaminophen (Ofirmev Inj) 1,000 mg in 100 mls @ 250 mls/hr IV X1 ONE Stop: 12/29/24 22:34 Last Infusion: 12/29/24 23:20 Dose: Infused Sodium Chloride (Ns) 500 mls @ 999 mls/hr IV .Q31M ONE Stop: 12/30/24 00:42 Ketorolac Tromethamine (Ketorolac Inj 30 Mg/Ml Vial) 30 mg IVP X1 ONE Stop: 12/29/24 22:12 Last Admin: 12/29/24 22:54 Dose: 30 mg Morphine Sulfate (Morphine Sulf Inj 10 Mg/Ml Vial) 2 mg IVP Q4HR PRN PRN Reason: PAIN Stop: 01/04/25 02:01 Morphine Sulfate (Morphine Sulf Inj 10 Mg/Ml Vial) 2 mg IVP Q4HR PRN PRN Reason: PAIN SCALE 4-10(Mod-Sev Stop: 01/04/25 02:01 Last Admin: 12/30/24 09:28 Dose: 2 mg Oxycodone/Acetaminophen (Oxycodone/Apap 5/325 Tablet) 1 tab PO Q6H PRN PRN Reason: PAIN SCALE 4-6 (Moderate Stop: 01/04/25 01:04 Assessment & Plan Plan Patient is a 64-year-old male with a past medical history of essential hypertension, hyperlipidemia, CAD, diabetes mellitus type 2 insulin-dependent, CHF 55-60% (11/12/2024), paroxysmal atrial fibrillation, history of seizures. obesity who was admitted for cellulits and sepsis rule out. Cardiology consulted for bigeminy PVC with history of Atrial fibrillation. # Bradycardia #Paroxysmal Atrial Fibrillation, rate controlled on Diltiazem #PVCs Patient has a past medical history of atrial fibrillation, rate controlled on Diltizaem and Rivaroxaban. On admission, patient presented with PVCs and bradycardia. Bradycardia likely secondary to medication vs electrolytes vs idiopathic. Continue to monitor vitals and continue Diltiazem 120 mg qday. TSH (12/30/2024): 0.95. Electrolytes within normal limits. Plan -Continue Rivaroxaban -Continue Diltiazem 120 mg qday -K>4 and Mg >2 -continue to monitor for worsening bradycardia # Acute on chronic diastolic CHF exacerbation - HFpEF 55-60% (11/12/2024) with Diastolic Dysfunction #CAD #HLD #HTN Etiology: Likley in the setting of cardiomyopathy secondary of hypertension vs ischemic but less likely as there are no changes in EKG indicating deep Q waves or history of NM. Echo (11/12/2024): Poor quality images. No clear valvular vegetations. Consider REECE if high clinical index of suspicion. Normal LV size and function. Estimated EF 55-60%. Mild LVH. Diastolic dysfunction present but cannot be graded because of the A-fib. Moderately dilated RV. Normal RV function. Elevated RVSP. Mild biatrial dilatation. Right greater than left. Mild MR. Trace TR. TSH (12/30/2024): 0.95 Lipid Panel (11/09/2024): Triglycerides 127, Cholesterol 127, LDL 63, HDL 39, NYHA Class: III ASCVD: High Intensity statins recommended Plan: -Bumex 2 mg IVP BID -Aspirin -Consider Atorvastatin -Aggressive Diuresis -K>4 and Mg >2 -Consider Fluid Restriction and Sodium Restriction 2 g per day -SpO <90%, support PRN -work towards GDMT -Daily Weights #Sepsis secondary to soft tissue infection, rule out #Luekocytosis #Bilateral lower extremity cellulitis Cellulitis can not be ruled out as patient met SIRs criteria on admission and concern for cellulitis, elevated WBC count on admission on 13.1 vs worsening lower peripheral edema vs concern for past medical history of MRSA bacteremia. Patient completed antibiotics via PICC line. Echo at that time negative for valvular vegetations. Plan: -Doxycyline and Keflex (12/29/2024--) -Blood Cultures Pening -Urine Cultures pending #ARIANA ARIANA likely pre-renal in the setting of dehydration intake givne BUN/CR >20 and patient's baseline maybe near 1.2 based on labs from previous admission in October. Underlying CKD can not be rule out given previous renal failure, requiring temporary dialysis. In addition, mild bilateral renal scar formation noted on US. Cardio-renal can not be ruled out. US: Mild bilateral renal parenchymal scar formation Plan -Consider urine electrolytes (may be incorrect given lasix) -Avoid nephrotoxins -Renall Dose Medication -Encourage oral hydration w/in limitis of fluid restriction #Diabetes Mellitus Type II, Insulin dependent #Hyperglycemia Past medical history of diabetes mellitus, poorly controlled despite Sliding scale. Patient would likely benefit from long acting insulin. A1c (12/30/2024) 7.7 Plan -Glargine 10 units qday -Sliding Scale -Monitor Fasting Glucose -Consider carb consisten low diet #Microcytic Anemia Likely in he setting of iron deficiency anemia. No carl blood loss reported vs chronic inflammation secondary to diabetes mellitus. 10 hgb 11.3 hct 36.4 Plan -Consider Iron Panel and Ferritin -Consider Folic and Thiamine -continue to monitor hgb >7 #MARK Consider Cpap at night #BPH -Resume home Tamsulosin #History of Seizures Health Maintenance: Disp: Pt is currently admitted to floors for further management of cellulitis, cardiology consulted for history of A fib and PVCs. FEN: Cardiac Diet, consider carb consistent low DVT: Rivaroxaban Code: Full Code - The patient's plan was discussed with attending Dr. Amy Yates MD PGY1 Internal Medicine Attending Provider Attestation/Addendum I have personally seen and examined the patient separately on the above date of service and discussed the plan of care with the resident. I reviewed the resident Dr. Amy Yates consultation progress note and agree with the resident findings and plan in the note above and have also edited the documentation to reflect my findings and plan. A 64-year-old male with a past medical history of morbid obesity, (diastolic CHF with last known ejection fraction of 55 to 60%, CAD with unknown stents type 2 diabetes mellitus insulin-dependent, morbid obesity with BMI greater than 45,, essential hypertension, hyperlipidemia, history of seizures, bilateral leg chronic venous stasis, presented to the emergency department for bilateral lower agreement the swelling as well as redness. EKG reviewed with the patient is having atrial fibrillation with frequent PVCs or bigeminy. No evidence of any heart blocks or or pauses. Labs do show acute kidney injury with mild hyperkalemia at 5.1 Patient known to me from previous admissions. Patient was found to have atrial fibrillation with RVR and was started on Cardizem CD1 20 mg once daily for paroxysmal atrial fibrillation. Patient does have HFpEF with an EF of 55 to 60% her previous echo reviewed. His A-fib was well-controlled with Cardizem CD 120 mg once daily. Patient's bradycardia is in the setting of acute kidney injury with hyperkalemia. Continue to monitor on telemetry. Patient is having asymptomatic bradycardia and denies any kind of dizziness or lightheadedness or syncope or fall or passing out. Patient is also bedbound and does not ambulate much. Okay to continue with Cardizem CD 120 mg once daily for now as the lowest heart rate is around 40 bpm. If patient continues to be more bradycardic then discontinue the Cardizem 120 mg once daily and start the patient on metoprolol XL 25 mg once daily and uptitrated based on the heart rate. Diaz potassium between 4 and 5 and magnesium greater than 2.0. Magnesium was 1.8 and replace aggressively. Patient presented with significant bilateral leg swelling with mild redness noted. Patient has acute on chronic diastolic CHF exacerbation. BUN is 47 creatinine is 2.1. Acute kidney injury is mostly secondary to cardiorenal syndrome. Recommend aggressive diuresis with Bumex 2 mg twice daily for now and continue to monitor renal function closely. Strict input output, daily weights and 2 g sodium diet. Please try to obtain records of previous procedures for the patient as there is mention of previous CAD for the patient. Management of rest of the medical conditions as per primary team and other consultants. Thank you for the consult and allowing me to participate in the care of the patient. Cardiology will continue to follow. Nacho Yoon M.D. Interventional Cardiology
[2024-12-31] VITALS (9 sets, daily range): BP systolic 123–155; BP diastolic 55–81; PULSE 40–97; RESP 16; TEMP 36.1–36.7; O2SAT 95–100; BMI 45.1
[2024-12-31] MEDS: MORPHINE SULF INJ 10 MG/ML VIAL 2 MG IVP ×2 (00:59→17:10)
[2024-12-31] MEDS: BUMETANIDE INJ 0.25 MG/ML VIAL 4 ML 2 MG IVP ×2 (05:27→17:30)
[2024-12-31] MEDS: cephALEXin 250 MG CAPSULE 500 MG PO ×4 (05:36→20:40)
[2024-12-31 05:38] LABS: Basophils # (Auto) 0.1 Thou/mm3 (0.0-0.2); Basophils % (Auto) 1 % (0-2.5); Eosinophils # (Auto) 0.5 Thou/mm3 (0.0-0.5); Eosinophils % (Auto) 5 % (0-10); Hematocrit 34.4 % (41.0-53.0); Hemoglobin 11.3 g/dL (13.5-16.0); Immature Granulocytes % (Auto) 0 % (0-0); Immature Granulocytes Auto 0.04 Thou/mm3 (0.00-0.00); Lymphocytes # (Auto) 2.5 Thou/mm3 (1.0-4.8); Lymphocytes % (Auto) 25 % (10-50); Mean Corpuscular HGB Conc 32.8 g/dl (31.0-37.0); Mean Corpuscular Hemoglobin 27.4 pg (25.0-35.0); Mean Corpuscular Volume 84 fL (80-100); Monocytes # (Auto) 0.7 Thou/mm3 (0.0-0.8); Monocytes % (Auto) 7 % (0-12); Neutrophils % (Auto) 62 % (37-80); Nucleated Red Blood Cell % 0 /100 WBC (0); Platelet Count 325 Thou/mm3 (140-440); RDW Standard Deviation 48.5 fL (35.1-43.9); Red Blood Count 4.12 Miln/mm3 (4.50-5.90); White Blood Count 9.7 Thou/mm3 (3.8-10.6)
[2024-12-31] MEDS: HYDROcodone/APAP 5/325 TABLET 1 TAB PO ×3 (05:46→20:41)
[2024-12-31 06:07] LABS: Alanine Aminotransferase < 7 U/L (10-49); Albumin, Serum 3.7 gm/dL (3.4-4.8); Albumin/Globulin Ratio 1.2 (1.2-2.2); Alkaline Phosphatase 40 U/L (46-116); Anion Gap 10 (7-16); Aspartate Amino Transferase 13 U/L (0-34); BUN/Creatinine Ratio 21 Ratio (12-20); Bilirubin,Total 0.5 mg/dL (0.3-1.2); Blood Urea Nitrogen 42 mg/dL (9-23); Calcium (Corrected) 9.2 mg/dL (8.5-10.1); Carbon Dioxide 23.5 mMol/L (20.0-31.0); Chloride 101 mMol/L (98-107); Estimated Creatinine Clearance 59.7 mL/min (>60); Globulin 3.1 gm/dL (2.3-3.5); Glucose 192 mg/dL (74-106); Magnesium 1.8 mg/dL (1.6-2.6); Osmolality,Calculated 283 (275-295); Potassium 4.6 mMol/L (3.4-5.1); Sodium 134 mMol/L (136-145); Total Protein 6.8 gm/dL (5.7-8.2); eGFR 37 See Note
[2024-12-31] MEDS: DOXYCYCLINE INJ 100 MG in SODIUM CHLORIDE 0.9% (POP) 100 ML IV ×2 (08:44→20:39)
[2024-12-31] MEDS: INSULIN LISPRO (AdmeLOG) 1 UNIT/0.01 ML UNIT SC ×3 (08:44→17:30)
[2024-12-31] MEDS: INSULIN GLARGINE (Lantus) 5 UNIT/0.05 ML (PER 5 UNITS) 10 UNIT SC (08:44)
[2024-12-31] MEDS: DILTIAZEM CD 120 MG CAPCR PO (08:45)
[2024-12-31] MEDS: ASPIRIN EC 81 MG TABEC PO (08:45)
[2024-12-31] MEDS: TAMSULOSIN HCL 0.4 MG CAPSULE PO (08:45)
[2024-12-31] MEDS: DOCUSATE SOD 100 MG CAPSULE PO (08:45)
[2024-12-31] MEDS: SENNA TABLET 1 TAB PO (08:45)
[2024-12-31] MEDS: Magnesium Sulfate 2 GM Ivpb 2 GM/50 ML BAG IV (08:46)
[2024-12-31] MEDS: RIVAROXABAN 10 MG TABLET 20 MG PO (08:46)
--- NOTE | 2024-12-31 09:47 | ESPR_ITS ---
Documentation for date of: 12/31/24 Subjective Subjective Interval history: Patient is a 64-year-old male with a past medical history of essential hypertension, hyperlipidemia, CAD, diabetes mellitus type 2 insulin-dependent, CHF 55-60% (11/12/2024), paroxysmal atrial fibrillation, history of seizures. obesity, and history of MRSA bacteremia. Patient presented to the ER via ambulance with chief complain of bilateral lower extremity swelling and lower extremity pain 05/06. Patient recently completed rehabilation at [facility]. Patient denied chest pain or SOB. Patient denied orthopnea or Paroxysmal nocturnal orthopnea. Patient stated he has continue to use all his medication as prescribed. Patient admitted for Sepsis, rule out and bilateral lower extremity cellulitis. ER Course: Vitals: BP 129/62, HR 48, RR 23, T 100.1, spO2 94 RA CBC: WBC 13.1, 11.8 hgb, hct 35.7, mcv 82, pl 391 CMP: Na 139, K 5.1, Cl 107, bicarb 21.1, BUN H, CR 1.8, BUN/Cr 22, GFR 42 Glucose 299 Lactic 1.8 Troponin 0.025 Venous Doppler Negative Chest X-ray: no significant cardiac enlargement, lungs are clear 12/31/2024: Pateint examined this morning at bedside. Patient denied SOB overnight and denied chest pain/pressure. Peripheral edema still noted and tender to touch per patinet. Overnight PVC still noted wth HR as low ast 40 recorded. Tele box HR flutuates based on exertion. Patient stated he was sleeping on a cot after being discharged from SNF and then was sleeping on a recliner. Pateint does not wasnt to return to SNF as he would have to pay out of pocket and has not found a stable home since moving to [place] as a majority of his time has been taken up hospitilized. Exam Vital Signs Temp Pulse Resp BP Pulse Ox O2 Del Method FiO2 97.3 F 97 16 136/73 H 100 Room Air 28 12/31/24 08:00 12/31/24 08:45 12/31/24 08:00 12/31/24 08:45 12/31/24 08:00 12/31/24 08:00 12/31/24 03:00 Narrative Exam General Appearance: Alert & Oriented X3, obese male who is lying in bed in no acute distress. Statis dermatitis noted bilaterally. HEENT: Skull symmetrical and atraumatic. Conjunctivae pale pink and moist. Pupils equal, round, reactive to light and accommodation (PERRL). External ear without lesion or discharge. Straight, nares patient, mucosa pink, no discharge. Cardio: Normal Rate and Rhythm with S1 and S2 heart sounds. Systolic Murmur over mitral region. No bruits on carotid auscultation. Peripheral edema noted, 3+ Lungs: Symmetric with good expansion. Chest and back non-tender. Breath sounds vesicular without crackles, wheezing or rhonchi Abdomen: Non-tender, Non-distended, Normal Reactive Bowel Sounds Neuro: Alert, cooperative, oriented to person, place, and time. Speech clear. CN grossly intact. Upper motor strength 5/5 and Lower motor strength 5/5. Sensation intact. Objective Labs 01/04/25 05:35 01/04/25 05:38 Labs: Laboratory Results - last 24 hr 12/31/24 05:00 WBC 9.7 RBC 4.12 L Hgb 11.3 L Hct 34.4 L MCV 84 MCH 27.4 MCHC 32.8 RDW Std Deviation 48.5 H Plt Count 325 Neut % (Auto) 62 Lymph % (Auto) 25 [place] % (Auto) 7 Eos % (Auto) 5 Baso % (Auto) 1 Neut # (Auto) 6.0 Lymph # (Auto) 2.5 [place] # (Auto) 0.7 Eos # (Auto) 0.5 Baso # (Auto) 0.1 Immature Gran # (Auto) 0.04 H Absolute Nucleated RBC 0.00 Immature Gran % 0 Nucleated RBC % 0 Sodium 134 L Potassium 4.6 Chloride 101 Carbon Dioxide 23.5 Anion Gap 10 BUN 42 H Creatinine 2.0 H Estim Creat Clear Calc 59.7 L eGFR 37 L BUN/Creatinine Ratio 21 H Glucose 192 H Calculated Osmolality 283 Calcium 9.0 Corrected Calcium 9.2 Phosphorus 4.0 Magnesium 1.8 Total Bilirubin 0.5 AST 13 ALT < 7 L Alkaline Phosphatase 40 L Total Protein 6.8 Albumin 3.7 Globulin 3.1 Albumin/Globulin Ratio 1.2 Quality Measures Quality Measures sepsis Current suspected stage: ruled out Possible source: skin/soft tissue Blood cultures ordered: yes Antibiotic ordered: Yes Assessment & Plan Assessment Current Active Medications: Generic Name Dose Route Start Last Admin Trade Name Freq PRN Reason Stop Dose Admin Acetaminophen 650 mg 12/30/24 01:05 Acetaminophen 325 Mg Tablet PO 01/29/25 01:04 Q6H PRN Fever >99.5 Acetaminophen 1,000 mg 12/31/24 06:31 Acetaminophen 500 Mg Tablet PO 01/29/25 01:04 Q6H PRN PAIN SCALE 1-3 (mild Hydrocodone Bitart/Acetaminophen 1 tab 12/30/24 15:34 12/31/24 05:46 Hydrocodone/Apap 5/325 Tablet PO 01/04/25 15:11 1 tab Q6HR PRN Administration PAIN SCALE 4-6 Aspirin 81 mg 12/30/24 09:00 12/31/24 08:45 Aspirin Ec 81 Mg Tabec PO 01/29/25 08:59 81 mg QDAY ASHWIN Administration Bumetanide 2 mg 12/30/24 06:00 12/31/24 05:27 Bumetanide Inj 0.25 Mg/Ml Vial 4 Ml IVP 01/29/25 05:59 2 mg BIDD ASHWIN Administration Cephalexin HCl 500 mg 12/30/24 06:00 12/31/24 05:36 Cephalexin 250 Mg Capsule PO 01/06/25 05:59 500 mg QID ASHWIN Administration Dextrose 25 ml 12/30/24 01:40 Dextrose 50%-Water Inj 50 Ml Syringe IV 01/29/25 01:39 Q15MIN PRN BG 50-70 responsive npo pt Dextrose 50 ml 12/30/24 01:40 Dextrose 50%-Water Inj 50 Ml Syringe IV 01/29/25 01:39 Q15MIN PRN BG <50 OR BG <70 & pt unresponsive Diltiazem HCl 120 mg 12/30/24 09:00 12/31/24 08:45 Diltiazem Cd 120 Mg Capcr PO 01/29/25 08:59 120 mg QDAY ASHWIN Administration Docusate Sodium 100 mg 12/30/24 09:00 12/31/24 08:45 Docusate Sod 100 Mg Capsule PO 01/29/25 08:59 100 mg QDAY ASHWIN Administration Protocol Glucagon 1 mg 12/30/24 01:40 Glucagon Inj 1 Mg Vial IM Q15MIN PRN BG <70, and no IV access Doxycycline Hyclate 100 mg/ 100 mls @ 100 mls/hr 12/30/24 09:00 12/31/24 08:44 Sodium Chloride IV 01/06/25 08:59 100 mls/hr BID ASHWIN Administration Magnesium Sulfate 2 gm in 50 mls @ 25 mls/hr 12/31/24 07:56 12/31/24 08:46 Magnesium Sulfate Ivpb IV 12/31/24 09:55 25 mls/hr X1 ONE Administration Insulin Glargine 10 unit 12/30/24 09:45 12/31/24 08:44 Insulin Glargine (Lantus) 5 Unit/0.05 Ml (Per 5 Units) SC 01/29/25 09:44 10 unit QDAY ASHWIN Administration Insulin Human Lispro 0 unit 12/31/24 09:35 Insulin Lispro (Admelog) 1 Unit/0.01 Ml Unit SC 01/29/25 07:29 AC ASHWIN Protocol Morphine Sulfate 2 mg 12/30/24 15:29 12/31/24 00:59 Morphine Sulf Inj 10 Mg/Ml Vial IVP 01/04/25 02:01 2 mg Q4HR PRN Administration PAIN SCALE 7-10 (Severe Ondansetron HCl 4 mg 12/30/24 01:05 Ondansetron Inj 2 Mg/Ml Inj 2 Ml IVP 01/29/25 01:04 Q6H PRN NAUSEA OR VOMITING Protocol Rivaroxaban 20 mg 12/30/24 09:00 12/31/24 08:46 Rivaroxaban 10 Mg Tablet PO 01/29/25 08:59 20 mg QDAY ASHWIN Administration Sennosides 1 tab 12/30/24 09:00 12/31/24 08:45 Senna Tablet PO 01/29/25 08:59 1 tab QDAY ASHWIN Administration Protocol Tamsulosin HCl 0.4 mg 12/30/24 09:00 12/31/24 08:45 Tamsulosin Hcl 0.4 Mg Capsule PO 01/29/25 08:59 0.4 mg QDAY ASHWIN Administration Plan Patient is a 64-year-old male with a past medical history of essential hypertension, hyperlipidemia, CAD, diabetes mellitus type 2 insulin-dependent, CHF 55-60% (11/12/2024), paroxysmal atrial fibrillation, history of seizures. obesity who was admitted for cellulits and sepsis rule out. Cardiology consulted for bigeminy PVC with history of Atrial fibrillation. #Bradycardia #Paroxysmal Atrial Fibrillation, rate controlled on Diltiazem #PVCs Patient has a past medical history of atrial fibrillation, rate controlled on Diltizaem and Rivaroxaban. On admission, patient presented with PVCs and bradycardia. Bradycardia likely secondary to medication vs electrolytes vs idiopathic. Continue to monitor vitals and continue Diltiazem 120 mg qday. TSH (12/30/2024): 0.95. Electrolytes within normal limits. Plan -Continue Rivaroxaban -Continue Diltiazem 120 mg qday -K>4 and Mg >2 -continue to monitor for worsening bradycardia # Acute on chronic diastolic CHF exacerbation - HFpEF 55-60% (11/12/2024) with Diastolic Dysfunction #CAD #HLD #HTN Etiology: Likley in the setting of cardiomyopathy secondary of hypertension vs ischemic but less likely as there are no changes in EKG indicating deep Q waves or history of MT. Echo (11/12/2024): Poor quality images. No clear valvular vegetations. Consider REECE if high clinical index of suspicion. Normal LV size and function. Estimated EF 55-60%. Mild LVH. Diastolic dysfunction present but cannot be graded because of the A-fib. Moderately dilated RV. Normal RV function. Elevated RVSP. Mild biatrial dilatation. Right greater than left. Mild MR. Trace TR. TSH (12/30/2024): 0.95 Lipid Panel (11/09/2024): Triglycerides 127, Cholesterol 127, LDL 63, HDL 39, 12/30/2024: NET +600 (likely not tracking output as patient stated was having urine output but none recorded for yesterday). Monitor output for 12/31/2024 and make adjustments to Bumex if need be. 12/31/2024: 2040/output 2600/-560 NYHA Class: III ASCVD: High Intensity statins recommended Plan: -Bumex 2 mg IVP BID -Aspirin 81 mg Qday -Consider Atorvastatin -Aggressive Diuresis -K>4 and Mg >2 -Consider Fluid Restriction and Sodium Restriction 2 g per day -SpO <90%, support PRN -work towards GDMT -Daily Weights #Sepsis secondary to soft tissue infection, rule out #Luekocytosis #Bilateral lower extremity cellulitis Cellulitis can not be ruled out as patient met SIRs criteria on admission and concern for cellulitis, elevated WBC count on admission on 13.1 vs worsening lower peripheral edema vs concern for past medical history of MRSA bacteremia. Patient completed antibiotics via PICC line. Echo at that time negative for valvular vegetations. Plan: -Doxycyline and Keflex (12/29/2024--) -Blood Cultures Negative 24 hours -Urine Cultures pending #ARIANA ARIANA likely pre-renal in the setting of dehydration intake givne BUN/CR >20 and patient's baseline maybe near 1.2 based on labs from previous admission in October. Underlying Cardio-renal can not be ruled out given CHF and ARIANA. Underlying CKD can not be rule out given previous renal failure, requiring temporary dialysis. In addition, mild bilateral renal scar formation noted on US. US: Mild bilateral renal parenchymal scar formation BUN 2.1 (12/30/2024)-->BUN 42 Cr 2.0 GFR 37 (12/31/2024) Plan -Avoid nephrotoxins -Renall Dose Medication -Encourage oral hydration w/in limitis of fluid restriction -Consider urine electrolytes (may be incorrect given lasix) #Diabetes Mellitus Type II, Insulin dependent #Hyperglycemia Past medical history of diabetes mellitus, poorly controlled despite Sliding scale. Patient would likely benefit from long acting insulin. A1c (12/30/2024) 7.7 Plan -Glargine 10 units qday -Sliding Scale -Monitor Fasting Glucose -Consider carb consisten low diet #Microcytic Anemia Likely in he setting of iron deficiency anemia. No carl blood loss reported vs chronic inflammation secondary to diabetes mellitus. 10 hgb 11.3 hct 36.4 Plan -Consider Iron Panel and Ferritin -Consider Folic and Thiamine -continue to monitor hgb >7 #MARK Consider Cpap at night #BPH -Resume home Tamsulosin #History of Seizures Health Maintenance: Disp: Pt is currently admitted to floors for further management of CHF and cellulitis, cardiology consulted for history of A fib and PVCs. FEN: Cardiac Diet, consider carb consistent low DVT: Rivaroxaban Code: Full Code - The patient's plan was discussed with attending Dr. Amy Yates MD PGY1 Internal Medicine Attending Provider Attestation/Addendum I have personally seen and examined the patient separately on the above date of service and discussed the plan of care with the resident. I reviewed the resident Dr. Amy Yates consultation progress note and agree with the resident findings and plan in the note above and have also edited the documentation to reflect my findings and plan. Nacho Yoon M.D. Interventional Cardiology
--- NOTE | 2024-12-31 10:37 | PC.SS ---
Follow up note: IV diuresis. Pt will return home with Anni HEALY upon dc.
--- NOTE | 2024-12-31 11:42 | ESPR_ITS ---
Documentation for date of: 12/31/24 Subjective Subjective Interval history: Patient seen and examined at bedside. Will continue with IV diuresis, per cardiology recommendations will continue diltiazem for now, will monitor heart rate closely. If patient's heart rate is in 30s, will stop diltiazem. Will monitor GFR closely renal function closely, will consult nephrology consult if patient's renal function continues to decline. Arterial duplex suggestive of abnormal waveforms, recommended CTA abdominal aorta iliofemoral runoff with IV contrast, will hold off on the study as patient has ARIANA, will consider o/p referral to vascular surgery Will continue with antibiotics and IV diuresis. Sliding scale insulin increased to step 2. Will continue to monitor patient, will follow closely. Exam Vital Signs Temp Pulse Resp BP Pulse Ox O2 Del Method FiO2 97.3 F 97 16 136/73 H 100 Room Air 28 12/31/24 08:00 12/31/24 08:45 12/31/24 08:00 12/31/24 08:45 12/31/24 08:00 12/31/24 08:00 12/31/24 03:00 Narrative Exam General Appearance: Alert & Oriented X3, obese male who is lying in bed in no acute distress. Statis dermatitis noted bilaterally. HEENT: Skull symmetrical and atraumatic. Conjunctivae pale pink and moist. Pupils equal, round, reactive to light and accommodation (PERRL). External ear without lesion or discharge. Straight, nares patient, mucosa pink, no discharge. Cardio: Normal Rate and Rhythm with S1 and S2 heart sounds. Systolic Murmur over mitral region. No bruits on carotid auscultation. Peripheral edema noted, 3+ Lungs: Symmetric with good expansion. Chest and back non-tender. Breath sounds vesicular without crackles, wheezing or rhonchi Abdomen: Non-tender, Non-distended, Normal Reactive Bowel Sounds Neuro: Alert, cooperative, oriented to person, place, and time. Speech clear. CN grossly intact. Upper motor strength 5/5 and Lower motor strength 5/5. Sensation intact. Objective Labs 01/01/25 04:54 01/01/25 04:54 Labs: Laboratory Results - last 24 hr 12/31/24 05:00 WBC 9.7 RBC 4.12 L Hgb 11.3 L Hct 34.4 L MCV 84 MCH 27.4 MCHC 32.8 RDW Std Deviation 48.5 H Plt Count 325 Neut % (Auto) 62 Lymph % (Auto) 25 [place] % (Auto) 7 Eos % (Auto) 5 Baso % (Auto) 1 Neut # (Auto) 6.0 Lymph # (Auto) 2.5 [place] # (Auto) 0.7 Eos # (Auto) 0.5 Baso # (Auto) 0.1 Immature Gran # (Auto) 0.04 H Absolute Nucleated RBC 0.00 Immature Gran % 0 Nucleated RBC % 0 Sodium 134 L Potassium 4.6 Chloride 101 Carbon Dioxide 23.5 Anion Gap 10 BUN 42 H Creatinine 2.0 H Estim Creat Clear Calc 59.7 L eGFR 37 L BUN/Creatinine Ratio 21 H Glucose 192 H Calculated Osmolality 283 Calcium 9.0 Corrected Calcium 9.2 Phosphorus 4.0 Magnesium 1.8 Total Bilirubin 0.5 AST 13 ALT < 7 L Alkaline Phosphatase 40 L Total Protein 6.8 Albumin 3.7 Globulin 3.1 Albumin/Globulin Ratio 1.2 Quality Measures Quality Measures sepsis Current suspected stage: ruled out Possible source: skin/soft tissue Blood cultures ordered: yes Antibiotic ordered: Yes Assessment & Plan Assessment Current Active Medications: Generic Name Dose Route Start Last Admin Trade Name Freq PRN Reason Stop Dose Admin Acetaminophen 650 mg 12/30/24 01:05 Acetaminophen 325 Mg Tablet PO 01/29/25 01:04 Q6H PRN Fever >99.5 Acetaminophen 1,000 mg 12/31/24 06:31 Acetaminophen 500 Mg Tablet PO 01/29/25 01:04 Q6H PRN PAIN SCALE 1-3 (mild Hydrocodone Bitart/Acetaminophen 1 tab 12/30/24 15:34 12/31/24 05:46 Hydrocodone/Apap 5/325 Tablet PO 01/04/25 15:11 1 tab Q6HR PRN Administration PAIN SCALE 4-6 Aspirin 81 mg 12/30/24 09:00 12/31/24 08:45 Aspirin Ec 81 Mg Tabec PO 01/29/25 08:59 81 mg QDAY ASHWIN Administration Bumetanide 2 mg 12/30/24 06:00 12/31/24 05:27 Bumetanide Inj 0.25 Mg/Ml Vial 4 Ml IVP 01/29/25 05:59 2 mg BIDD ASHWIN Administration Cephalexin HCl 500 mg 12/30/24 06:00 12/31/24 05:36 Cephalexin 250 Mg Capsule PO 01/06/25 05:59 500 mg QID ASHWIN Administration Dextrose 25 ml 12/30/24 01:40 Dextrose 50%-Water Inj 50 Ml Syringe IV 01/29/25 01:39 Q15MIN PRN BG 50-70 responsive npo pt Dextrose 50 ml 12/30/24 01:40 Dextrose 50%-Water Inj 50 Ml Syringe IV 01/29/25 01:39 Q15MIN PRN BG <50 OR BG <70 & pt unresponsive Diltiazem HCl 120 mg 12/30/24 09:00 12/31/24 08:45 Diltiazem Cd 120 Mg Capcr PO 01/29/25 08:59 120 mg QDAY ASHWIN Administration Docusate Sodium 100 mg 12/30/24 09:00 12/31/24 08:45 Docusate Sod 100 Mg Capsule PO 01/29/25 08:59 100 mg QDAY ASHWIN Administration Protocol Glucagon 1 mg 12/30/24 01:40 Glucagon Inj 1 Mg Vial IM Q15MIN PRN BG <70, and no IV access Doxycycline Hyclate 100 mg/ 100 mls @ 100 mls/hr 12/30/24 09:00 12/31/24 08:44 Sodium Chloride IV 01/06/25 08:59 100 mls/hr BID ASHWIN Administration Insulin Glargine 10 unit 12/30/24 09:45 12/31/24 08:44 Insulin Glargine (Lantus) 5 Unit/0.05 Ml (Per 5 Units) SC 01/29/25 09:44 10 unit QDAY ASHWIN Administration Insulin Human Lispro 0 unit 12/31/24 09:35 Insulin Lispro (Admelog) 1 Unit/0.01 Ml Unit SC 01/29/25 07:29 AC [facility] Protocol Morphine Sulfate 2 mg 12/30/24 15:29 12/31/24 00:59 Morphine Sulf Inj 10 Mg/Ml Vial IVP 01/04/25 02:01 2 mg Q4HR PRN Administration PAIN SCALE 7-10 (Severe Ondansetron HCl 4 mg 12/30/24 01:05 Ondansetron Inj 2 Mg/Ml Inj 2 Ml IVP 01/29/25 01:04 Q6H PRN NAUSEA OR VOMITING Protocol Rivaroxaban 20 mg 12/30/24 09:00 12/31/24 08:46 Rivaroxaban 10 Mg Tablet PO 01/29/25 08:59 20 mg QDAY ASHWIN Administration Sennosides 1 tab 12/30/24 09:00 12/31/24 08:45 Senna Tablet PO 01/29/25 08:59 1 tab QDAY ASHWIN Administration Protocol Tamsulosin HCl 0.4 mg 12/30/24 09:00 12/31/24 08:45 Tamsulosin Hcl 0.4 Mg Capsule PO 01/29/25 08:59 0.4 mg QDAY ASHWIN Administration Plan 64-year-old male past medical history of hypertension, diabetes, HFpEF, CAD, COPD, A-fib, seizures, hyperlipidemia who presents to the ED with bilateral leg swelling. Patient is admitted for cellulitis. #Bilateral lower extremity swelling, secondary to #Anasarca #Acute decompensated heart failure, HFpEF (50%) Given bilateral and symmetric nature of the exam findings it was felt that swelling was more due to anasarca in the setting of CHF rather than cellulitis. ARIANA may be due to cardiorenal. - Continue with Bumex 2 mg IV BID - Monitor strict I&Os - Daily weight - Monitor closely #SIRS positive #?Bilateral lower extremity cellulitis #Abnormal arterial duplex scan 2 to 3 weeks of progressive leg swelling with blisters that popped and are open and draining Patient went and walked to the bathroom and developed excruciating pain rated 10 out of 10 and sharp in both legs but more pronounced on the left compared to the right Patient with leukocytosis, low-grade fever, tachypneic, with endorgan damage ARIANA ED gave 500 mL bolus, did not give full sepsis bolus due to history of heart failure Bilateral lower extremity arterial was unable to assess ankle branchial index Arterial duplex suggestive of abnormal waveforms, recommended CTA abdominal aorta iliofemoral runoff with IV contrast, will hold off on the study as patient has ARIANA. Venous ultrasound was negative for DVTs ? Continue Keflex for now ? Continue Doxycycline for now ? Wound care ? Follow-up cultures ? Consider outpatient vascular surgery consult #Bigeminy #PVCs #Afib with slow ventricular response Initial EKG on admission showed slow afib with RvR. 6/ patient noted to have bigeminy on tele. Patient not having any chest symptoms. - Will continue with IV diuresis, per cardiology recommendations will continue diltiazem for now, will monitor heart rate closely. If patient's heart rate is in 30s, will stop diltiazem. - Consulted cardiology for any possible recommendations #Acute kidney injury on CKD stage IIIb #Most likely cardiorenal syndrome Got IV fluids in the ED. Patient creatinine worsened 1.8->2.1 Will monitor GFR closely renal function closely, will consult nephrology consult if patient's renal function continues to decline. - Will continue with IV diuresis and assess response ? Avoid nephrotoxins ? Renally dose medications #Hypertension #Hyperlipidemia #CAD #BPH Continue home medications ? On Xarelto ? Diltiazem ? Aspirin ? Tamsulosin #History of seizure disorder Patient was on topiramate in the past for seizure disorder, has not seen neurologist in the last 10 years, last seizure was more than 10 years ago. Will refrain from starting patient on topiramate, patient can follow outpatient with neurology Health Maintenance: Disposition: Telemetry Fluids: None Feeding: Cardiac Thrombo prophylaxis: Xarelto Gastric Ulcer prophylaxis: None CODE STATUS: Full code Patient plan of care was discussed with the attending physician, Dr. Kidd. Ju Saez PGY1 Attending Provider Attestation/Addendum I attest that I was physically present for the evaluation, physical examination, lab and imaging review of the patient with the residents. I discussed the case with the residents and agree with the findings and plans of care as documented above. Patient continues to be on aggressive diuresis. At bedside, states that he is feeling well and denies any new complaints. Saturating well on room air. Vitals are stable, except for bradycardia. Discussed with cardiology, recommended continuation of diltiazem and monitor for worsening heart rate, appreciate recommendations. Kidney function slowly improving, BUN/creatinine of 42/4.2 today. Arterial duplex suggested abnormal waveform, recommended CTA abdomen with iliofemoral runoff but unable to perform the investigation due to ARIANA. Continues to be on Keflex and doxycycline for bilateral lower extremity cellulitis. Continues to be on Xarelto for A-fib. Blood culture results are pending. Todd Kidd MD
--- NOTE | 2024-12-31 14:31 | PC.NURSE ---
Notified Dr. Saez of EKG results (Acute NH), MD will come to bedside to assess pt and look at EKG
[2025-01-01] VITALS (12 sets, daily range): BP systolic 130–149; BP diastolic 62–77; PULSE 40–79; RESP 15–97; TEMP 36.1–36.7; O2SAT 93–99; BMI 45.4
[2025-01-01] MEDS: cephALEXin 250 MG CAPSULE 500 MG PO ×4 (05:18→20:29)
[2025-01-01] MEDS: BUMETANIDE INJ 0.25 MG/ML VIAL 4 ML 2 MG IVP ×2 (05:19→17:06)
[2025-01-01] MEDS: HYDROcodone/APAP 5/325 TABLET 1 TAB PO ×3 (05:23→21:33)
[2025-01-01 05:44] LABS: Basophils # (Auto) 0.1 Thou/mm3 (0.0-0.2); Basophils % (Auto) 1 % (0-2.5); Eosinophils # (Auto) 0.5 Thou/mm3 (0.0-0.5); Eosinophils % (Auto) 6 % (0-10); Hemoglobin 10.7 g/dL (13.5-16.0); Immature Granulocytes % (Auto) 0 % (0-0); Immature Granulocytes Auto 0.03 Thou/mm3 (0.00-0.00); Lymphocytes % (Auto) 25 % (10-50); Mean Corpuscular HGB Conc 31.5 g/dl (31.0-37.0); Mean Corpuscular Hemoglobin 27.2 pg (25.0-35.0); Mean Corpuscular Volume 86 fL (80-100); Monocytes # (Auto) 0.7 Thou/mm3 (0.0-0.8); Monocytes % (Auto) 8 % (0-12); Neutrophils # (Auto) 4.9 Thou/mm3 (1.8-7.7); Neutrophils % (Auto) 60 % (37-80); Nucleated Red Blood Cell % 0 /100 WBC (0); Platelet Count 293 Thou/mm3 (140-440); RDW Standard Deviation 49.6 fL (35.1-43.9); Red Blood Count 3.94 Miln/mm3 (4.50-5.90); White Blood Count 8.1 Thou/mm3 (3.8-10.6)
[2025-01-01 06:39] LABS: Alanine Aminotransferase < 7 U/L (10-49); Albumin, Serum 3.7 gm/dL (3.4-4.8); Albumin/Globulin Ratio 1.3 (1.2-2.2); Alkaline Phosphatase 38 U/L (46-116); Anion Gap 10 (7-16); BUN/Creatinine Ratio 23 Ratio (12-20); Bilirubin,Total 0.4 mg/dL (0.3-1.2); Blood Urea Nitrogen 42 mg/dL (9-23); Calcium 9.1 mg/dL (8.3-10.6); Calcium (Corrected) 9.3 mg/dL (8.5-10.1); Carbon Dioxide 25.6 mMol/L (20.0-31.0); Chloride 99 mMol/L (98-107); Creatinine (Component) 1.8 mg/dL (0.6-1.3); Estimated Creatinine Clearance 66.6 mL/min (>60); Globulin 2.8 gm/dL (2.3-3.5); Glucose 164 mg/dL (74-106); Magnesium 1.8 mg/dL (1.6-2.6); Osmolality,Calculated 284 (275-295); Phosphorous 4.8 mg/dL (2.4-5.1); Potassium 4.3 mMol/L (3.4-5.1); Sodium 135 mMol/L (136-145); Total Protein 6.5 gm/dL (5.7-8.2); eGFR 42 See Note
[2025-01-01 07:36] LABS: Ferritin 67 ng/mL (10.5-307.3); Iron 24 mcg/dL (65-175); Percent Iron Saturation 9 % (20-55); Total Iron Binding Capacity 265 mcg/dL (250-425); Unsaturated Iron Binding 241 (225-295)
[2025-01-01] MEDS: INSULIN GLARGINE (Lantus) 5 UNIT/0.05 ML (PER 5 UNITS) 10 UNIT SC (08:02)
[2025-01-01] MEDS: DOXYCYCLINE INJ 100 MG in SODIUM CHLORIDE 0.9% (POP) 100 ML IV (08:02)
[2025-01-01] MEDS: INSULIN LISPRO (AdmeLOG) 1 UNIT/0.01 ML UNIT SC ×3 (08:03→16:37)
[2025-01-01] MEDS: TAMSULOSIN HCL 0.4 MG CAPSULE PO (08:04)
[2025-01-01] MEDS: DILTIAZEM CD 120 MG CAPCR PO (08:05)
[2025-01-01] MEDS: ASPIRIN EC 81 MG TABEC PO (08:05)
[2025-01-01] MEDS: DOCUSATE SOD 100 MG CAPSULE PO (08:05)
[2025-01-01] MEDS: SENNA TABLET 1 TAB PO (08:05)
[2025-01-01] MEDS: RIVAROXABAN 10 MG TABLET 20 MG PO (08:06)
--- NOTE | 2025-01-01 13:08 | PD.RESPRO ---
Documentation for date of: 01/01/25 Subjective Subjective Interval history: Patient seen and examined at bedside. Will continue with IV diuresis, renal function improving, patient has underlying cardiorenal syndrome. Patient is -2.6 L In the last 24 hours, will continue with IV diuresis. Patient has significant cellulitis, will continue Keflex Iron panel was significant for iron 24, TIBC 265, iron saturation 9%, unsaturated iron binding 241, ferritin 67. Will continue with IV diuresis, cardiology is following. Exam Vital Signs Temp Pulse Resp BP Pulse Ox O2 Del Method FiO2 98.0 F 44 L 21 H 144/69 H 93 L Room Air 28 01/01/25 11:49 01/01/25 11:49 01/01/25 11:49 01/01/25 11:49 01/01/25 11:49 01/01/25 11:49 12/31/24 22:00 Narrative Exam General Appearance: Alert & Oriented X3, obese male who is lying in bed in no acute distress. Statis dermatitis noted bilaterally. HEENT: Skull symmetrical and atraumatic. Conjunctivae pale pink and moist. Pupils equal, round, reactive to light and accommodation (PERRL). External ear without lesion or discharge. Straight, nares patient, mucosa pink, no discharge. Cardio: Normal Rate and Rhythm with S1 and S2 heart sounds. Systolic Murmur over mitral region. No bruits on carotid auscultation. Peripheral edema noted, 3+ Lungs: Symmetric with good expansion. Chest and back non-tender. Breath sounds vesicular without crackles, wheezing or rhonchi Abdomen: Non-tender, Non-distended, Normal Reactive Bowel Sounds Neuro: Alert, cooperative, oriented to person, place, and time. Speech clear. CN grossly intact. Upper motor strength 5/5 and Lower motor strength 5/5. Sensation intact. Objective Labs 01/01/25 04:54 01/01/25 04:54 Labs: Laboratory Results - last 24 hr 01/01/25 04:54 WBC 8.1 RBC 3.94 L Hgb 10.7 L Hct 34.0 L MCV 86 MCH 27.2 MCHC 31.5 RDW Std Deviation 49.6 H Plt Count 293 D Neut % (Auto) 60 Lymph % (Auto) 25 [place] % (Auto) 8 Eos % (Auto) 6 Baso % (Auto) 1 Neut # (Auto) 4.9 Lymph # (Auto) 2.0 [place] # (Auto) 0.7 Eos # (Auto) 0.5 Baso # (Auto) 0.1 Immature Gran # (Auto) 0.03 H Absolute Nucleated RBC 0.00 Immature Gran % 0 Nucleated RBC % 0 Sodium 135 L Potassium 4.3 Chloride 99 Carbon Dioxide 25.6 Anion Gap 10 BUN 42 H Creatinine 1.8 H Estim Creat Clear Calc 66.6 eGFR 42 L BUN/Creatinine Ratio 23 H Glucose 164 H Calculated Osmolality 284 Calcium 9.1 Corrected Calcium 9.3 Phosphorus 4.8 Magnesium 1.8 Iron 24 L TIBC 265 Iron Saturation 9 L Unsat Iron Binding 241 Ferritin 67 Total Bilirubin 0.4 ALT < 7 L Alkaline Phosphatase 38 L Total Protein 6.5 Albumin 3.7 Globulin 2.8 Albumin/Globulin Ratio 1.3 Quality Measures Quality Measures sepsis Current suspected stage: ruled out Possible source: skin/soft tissue Blood cultures ordered: yes Antibiotic ordered: Yes Assessment & Plan Assessment Current Active Medications: Generic Name Dose Route Start Last Admin Trade Name Freq PRN Reason Stop Dose Admin Acetaminophen 650 mg 12/30/24 01:05 Acetaminophen 325 Mg Tablet PO 01/29/25 01:04 Q6H PRN Fever >99.5 Acetaminophen 1,000 mg 12/31/24 06:31 Acetaminophen 500 Mg Tablet PO 01/29/25 01:04 Q6H PRN PAIN SCALE 1-3 (mild Hydrocodone Bitart/Acetaminophen 1 tab 12/30/24 15:34 01/01/25 11:47 Hydrocodone/Apap 5/325 Tablet PO 01/04/25 15:11 1 tab Q6HR PRN Administration PAIN SCALE 4-6 Aspirin 81 mg 12/30/24 09:00 01/01/25 08:05 Aspirin Ec 81 Mg Tabec PO 01/29/25 08:59 81 mg QDAY ASHWIN Administration Bumetanide 2 mg 12/30/24 06:00 01/01/25 05:19 Bumetanide Inj 0.25 Mg/Ml Vial 4 Ml IVP 01/29/25 05:59 2 mg BIDD ASHWIN Administration Cephalexin HCl 500 mg 12/30/24 06:00 01/01/25 11:43 Cephalexin 250 Mg Capsule PO 01/06/25 05:59 500 mg QID ASHWIN Administration Dextrose 25 ml 12/30/24 01:40 Dextrose 50%-Water Inj 50 Ml Syringe IV 01/29/25 01:39 Q15MIN PRN BG 50-70 responsive npo pt Dextrose 50 ml 12/30/24 01:40 Dextrose 50%-Water Inj 50 Ml Syringe IV 01/29/25 01:39 Q15MIN PRN BG <50 OR BG <70 & pt unresponsive Diltiazem HCl 120 mg 12/30/24 09:00 01/01/25 08:05 Diltiazem Cd 120 Mg Capcr PO 01/29/25 08:59 120 mg QDAY ASHWIN Administration Docusate Sodium 100 mg 12/30/24 09:00 01/01/25 08:05 Docusate Sod 100 Mg Capsule PO 01/29/25 08:59 100 mg QDAY ASHWIN Administration Protocol Doxycycline Hyclate 100 mg 01/01/25 21:00 Doxycycline 100 Mg Tablet PO 01/08/25 20:59 BID ASHWIN Protocol Glucagon 1 mg 12/30/24 01:40 Glucagon Inj 1 Mg Vial IM Q15MIN PRN BG <70, and no IV access Insulin Glargine 10 unit 12/30/24 09:45 01/01/25 08:02 Insulin Glargine (Lantus) 5 Unit/0.05 Ml (Per 5 Units) SC 01/29/25 09:44 10 unit QDAY ASHWIN Administration Insulin Human Lispro 0 unit 12/31/24 09:35 01/01/25 11:44 Insulin Lispro (Admelog) 1 Unit/0.01 Ml Unit SC 01/29/25 07:29 2 unit AC ASHWIN Administration Protocol Morphine Sulfate 2 mg 12/30/24 15:29 12/31/24 17:10 Morphine Sulf Inj 10 Mg/Ml Vial IVP 01/04/25 02:01 2 mg Q4HR PRN Administration PAIN SCALE 7-10 (Severe Ondansetron HCl 4 mg 12/30/24 01:05 Ondansetron Inj 2 Mg/Ml Inj 2 Ml IVP 01/29/25 01:04 Q6H PRN NAUSEA OR VOMITING Protocol Rivaroxaban 20 mg 12/30/24 09:00 01/01/25 08:06 Rivaroxaban 10 Mg Tablet PO 01/29/25 08:59 20 mg QDAY ASHWIN Administration Sennosides 1 tab 12/30/24 09:00 01/01/25 08:05 Senna Tablet PO 01/29/25 08:59 1 tab QDAY ASHWIN Administration Protocol Tamsulosin HCl 0.4 mg 12/30/24 09:00 01/01/25 08:04 Tamsulosin Hcl 0.4 Mg Capsule PO 01/29/25 08:59 0.4 mg QDAY ASHWIN Administration Plan 64-year-old male past medical history of hypertension, diabetes, HFpEF, CAD, COPD, A-fib, seizures, hyperlipidemia who presents to the ED with bilateral leg swelling. Patient is admitted for cellulitis. #Bilateral lower extremity swelling, secondary to #Anasarca #Acute decompensated heart failure, HFpEF (50%) Given bilateral and symmetric nature of the exam findings it was felt that swelling was more due to anasarca in the setting of CHF rather than cellulitis. ARIANA may be due to cardiorenal. - Continue with Bumex 2 mg IV BID - Monitor strict I&Os, fluid restriction 1500 cc - Daily weight - Monitor closely - Will consider starting patient on SGLT2 inhibitors once renal function is stable. #SIRS positive #?Bilateral lower extremity cellulitis #Abnormal arterial duplex scan 2 to 3 weeks of progressive leg swelling with blisters that popped and are open and draining Patient went and walked to the bathroom and developed excruciating pain rated 10 out of 10 and sharp in both legs but more pronounced on the left compared to the right Patient with leukocytosis, low-grade fever, tachypneic, with endorgan damage ARIANA ED gave 500 mL bolus, did not give full sepsis bolus due to history of heart failure Bilateral lower extremity arterial was unable to assess ankle branchial index Arterial duplex suggestive of abnormal waveforms, recommended CTA abdominal aorta iliofemoral runoff with IV contrast, will hold off on the study as patient has ARIANA. Venous ultrasound was negative for DVTs ? Continue Keflex for now ? Continue Doxycycline for now ? Wound care ? Follow-up cultures ? Consider outpatient vascular surgery consult #Bigeminy #PVCs #Afib with slow ventricular response Initial EKG on admission showed slow afib with RvR. 6/ patient noted to have bigeminy on tele. Patient not having any chest symptoms. - Will continue with IV diuresis, per cardiology recommendations will continue diltiazem for now, will monitor heart rate closely. If patient's heart rate is in 30s, will stop diltiazem. - Consulted cardiology for any possible recommendations #Acute kidney injury on CKD stage IIIb #Most likely cardiorenal syndrome Got IV fluids in the ED. Patient creatinine worsened 1.8->2.1 Will monitor GFR closely renal function closely, will consult nephrology consult if patient's renal function continues to decline. - Will continue with IV diuresis and assess response ? Avoid nephrotoxins ? Renally dose medications #Hypertension #Hyperlipidemia #CAD #BPH Continue home medications ? On Xarelto ? Diltiazem ? Aspirin ? Tamsulosin #Iron-deficiency anemia Hemoglobin 10.7, MCV/MCH within normal limits Iron panel was significant for iron 24, TIBC 265, iron saturation 9%, unsaturated iron binding 241, ferritin 67. - Monitor hemoglobin and hematocrit - Will consider discharging on iron supplementation #History of seizure disorder Patient was on topiramate in the past for seizure disorder, has not seen neurologist in the last 10 years, last seizure was more than 10 years ago. Will refrain from starting patient on topiramate, patient can follow outpatient with neurology Health Maintenance: Disposition: Telemetry Fluids: None Feeding: Cardiac, fluid restriction 1500 cc, carb consistent low DVT prophylaxis: Xarelto Gastric Ulcer prophylaxis: Not indicated CODE STATUS: Full code Patient plan of care was discussed with the attending physician, Dr. Kidd. Ju Saez PGY1 Attending Provider Attestation/Addendum I attest that I was physically present for the evaluation, physical examination, lab and imaging review of the patient with the residents. I discussed the case with the residents and agree with the findings and plans of care as documented above. At bedside today, patient states she is feeling well and denies any new complaints. Continues to have improved lower extremity swelling but still has significant edema. Continues to have edema and tenderness around bilateral lower extremity. Had a total negative balance of -2.7 L today. Blood culture results have been negative for more than 48 hours. Continues to be on IV antibiotics. Continues to have tenderness around bilateral lower extremity along with erythema. Kidney function continues to improve, BUN/creatinine of 42/1.8 today. We will switch his diuresis to Bumex 2 mg p.o. twice daily. We will also obtain physical therapy. Todd Kidd MD
[2025-01-01] MEDS: DOXYCYCLINE 100 MG TABLET PO (20:29)
[2025-01-01] MEDS: BALSAM PERU/CASTOR OIL (Venelex) 60 GM TUBE TOP (20:30)
[2025-01-02] VITALS (14 sets, daily range): BP systolic 139–165; BP diastolic 62–74; PULSE 40–58; RESP 10–27; TEMP 36.2–36.8; O2SAT 95–99; BMI 45.4
[2025-01-02] MEDS: BUMETANIDE INJ 0.25 MG/ML VIAL 4 ML 2 MG IVP ×2 (05:24→17:39)
[2025-01-02] MEDS: cephALEXin 250 MG CAPSULE 500 MG PO ×4 (05:24→20:39)
[2025-01-02] MEDS: HYDROcodone/APAP 5/325 TABLET 1 TAB PO ×3 (05:48→21:59)
[2025-01-02 07:15] LABS: Phosphorous 3.9 mg/dL (2.4-5.1)
[2025-01-02 08:01] LABS: Basophils # (Auto) 0.1 Thou/mm3 (0.0-0.2); Basophils % (Auto) 1 % (0-2.5); Eosinophils # (Auto) 0.4 Thou/mm3 (0.0-0.5); Eosinophils % (Auto) 4 % (0-10); Hematocrit 35.6 % (41.0-53.0); Hemoglobin 11.6 g/dL (13.5-16.0); Immature Granulocytes % (Auto) 0 % (0-0); Immature Granulocytes Auto 0.02 Thou/mm3 (0.00-0.00); Lymphocytes % (Auto) 20 % (10-50); Mean Corpuscular HGB Conc 32.6 g/dl (31.0-37.0); Mean Corpuscular Hemoglobin 26.9 pg (25.0-35.0); Mean Corpuscular Volume 82 fL (80-100); Monocytes # (Auto) 0.6 Thou/mm3 (0.0-0.8); Monocytes % (Auto) 6 % (0-12); Neutrophils # (Auto) 6.7 Thou/mm3 (1.8-7.7); Neutrophils % (Auto) 69 % (37-80); Nucleated Red Blood Cell % 0 /100 WBC (0); Platelet Count 419 Thou/mm3 (140-440); RDW Standard Deviation 47.3 fL (35.1-43.9); Red Blood Count 4.32 Miln/mm3 (4.50-5.90); White Blood Count 9.8 Thou/mm3 (3.8-10.6)
[2025-01-02] MEDS: INSULIN LISPRO (AdmeLOG) 1 UNIT/0.01 ML UNIT SC ×3 (08:01→17:39)
[2025-01-02] MEDS: INSULIN GLARGINE (Lantus) 5 UNIT/0.05 ML (PER 5 UNITS) 12 UNIT SC (08:02)
[2025-01-02] MEDS: DOXYCYCLINE 100 MG TABLET PO ×2 (08:21→20:39)
[2025-01-02] MEDS: RIVAROXABAN 10 MG TABLET 20 MG PO (08:22)
[2025-01-02] MEDS: DOCUSATE SOD 100 MG CAPSULE PO (08:22)
[2025-01-02] MEDS: ASPIRIN EC 81 MG TABEC PO (08:22)
[2025-01-02] MEDS: SENNA TABLET 1 TAB PO (08:22)
[2025-01-02] MEDS: TAMSULOSIN HCL 0.4 MG CAPSULE PO (08:22)
[2025-01-02 08:26] LABS: Alanine Aminotransferase 9 U/L (10-49); Albumin, Serum 3.6 gm/dL (3.4-4.8); Albumin/Globulin Ratio 1.2 (1.2-2.2); Alkaline Phosphatase 41 U/L (46-116); Anion Gap 12 (7-16); BUN/Creatinine Ratio 34 Ratio (12-20); Bilirubin,Total 0.6 mg/dL (0.3-1.2); Blood Urea Nitrogen 48 mg/dL (9-23); Calcium (Corrected) 9.3 mg/dL (8.5-10.1); Carbon Dioxide 28.4 mMol/L (20.0-31.0); Chloride 101 mMol/L (98-107); Creatinine (Component) 1.4 mg/dL (0.6-1.3); Estimated Creatinine Clearance 85.6 mL/min (>60); Globulin 2.9 gm/dL (2.3-3.5); Glucose 153 mg/dL (74-106); Magnesium 1.8 mg/dL (1.6-2.6); Osmolality,Calculated 296 (275-295); Potassium 4.4 mMol/L (3.4-5.1); Sodium 141 mMol/L (136-145); Total Protein 6.5 gm/dL (5.7-8.2); eGFR 56 See Note
--- NOTE | 2025-01-02 09:12 | PC.CC ---
pt is on service with [facility]. Per umesh notes on admit, pt wants to establish with [facility]. Spoke to UMESH Mo to clarify who pt's primary is currently. She will clarify with pt.
[2025-01-02] MEDS: DILTIAZEM CD 120 MG CAPCR PO (10:14)
[2025-01-02] MEDS: BALSAM PERU/CASTOR OIL (Venelex) 60 GM TUBE TOP ×2 (10:15→20:41)
--- NOTE | 2025-01-02 10:46 | PD.RESPRO ---
Documentation for date of: 01/02/25 Subjective Subjective Interval history: Patient seen and examined at bedside. He is -3.15 L in the last 24 hours, will continue with IV diuresis as recommended by cardiology. Renal function is improving, creatinine 1.4 today, has good urine output Patient's heart rate continues to be in 40s to 50s, will continue with diltiazem for now. Patient is pending physical therapy evaluation, does not have adequate support at home will likely benefit from rehab/home health Will continue with IV diuresis and continue to monitor the patient Exam Vital Signs Temp Pulse Resp BP Pulse Ox O2 Del Method FiO2 97.8 F 45 L 21 H 141/69 H 99 BiPAP 28 01/02/25 08:00 01/02/25 10:14 01/02/25 08:00 01/02/25 10:14 01/02/25 08:00 01/02/25 08:00 01/02/25 08:00 Narrative Exam General Appearance: Alert & Oriented X3, obese male who is lying in bed in no acute distress. Statis dermatitis noted bilaterally. HEENT: Skull symmetrical and atraumatic. Conjunctivae pale pink and moist. Pupils equal, round, reactive to light and accommodation (PERRL). External ear without lesion or discharge. Straight, nares patient, mucosa pink, no discharge. Cardio: Normal Rate and Rhythm with S1 and S2 heart sounds. Systolic Murmur over mitral region. No bruits on carotid auscultation. Peripheral edema noted, 3+ Lungs: Symmetric with good expansion. Chest and back non-tender. Breath sounds vesicular without crackles, wheezing or rhonchi Abdomen: Non-tender, Non-distended, Normal Reactive Bowel Sounds Neuro: Alert, cooperative, oriented to person, place, and time. Speech clear. CN grossly intact. Upper motor strength 5/5 and Lower motor strength 5/5. Sensation intact. Objective Labs 01/02/25 05:42 01/02/25 05:42 Labs: Laboratory Results - last 24 hr 01/02/25 05:42 WBC 9.8 RBC 4.32 L Hgb 11.6 L Hct 35.6 L MCV 82 MCH 26.9 MCHC 32.6 RDW Std Deviation 47.3 H Plt Count 419 D Neut % (Auto) 69 Lymph % (Auto) 20 [place] % (Auto) 6 Eos % (Auto) 4 Baso % (Auto) 1 Neut # (Auto) 6.7 Lymph # (Auto) 2.0 [place] # (Auto) 0.6 Eos # (Auto) 0.4 Baso # (Auto) 0.1 Immature Gran # (Auto) 0.02 H Absolute Nucleated RBC 0.00 Immature Gran % 0 Nucleated RBC % 0 Sodium 141 Potassium 4.4 Chloride 101 Carbon Dioxide 28.4 Anion Gap 12 BUN 48 H Creatinine 1.4 H Estim Creat Clear Calc 85.6 eGFR 56 L BUN/Creatinine Ratio 34 H Glucose 153 H Calculated Osmolality 296 H Calcium 9.0 Corrected Calcium 9.3 Phosphorus 3.9 Magnesium 1.8 Total Bilirubin 0.6 ALT 9 L Alkaline Phosphatase 41 L Total Protein 6.5 Albumin 3.6 Globulin 2.9 Albumin/Globulin Ratio 1.2 Quality Measures Quality Measures sepsis Current suspected stage: ruled out Possible source: skin/soft tissue Blood cultures ordered: yes Antibiotic ordered: Yes Assessment & Plan Assessment Current Active Medications: Generic Name Dose Route Start Last Admin Trade Name Freq PRN Reason Stop Dose Admin Acetaminophen 650 mg 12/30/24 01:05 Acetaminophen 325 Mg Tablet PO 01/29/25 01:04 Q6H PRN Fever >99.5 Acetaminophen 1,000 mg 12/31/24 06:31 Acetaminophen 500 Mg Tablet PO 01/29/25 01:04 Q6H PRN PAIN SCALE 1-3 (mild Hydrocodone Bitart/Acetaminophen 1 tab 12/30/24 15:34 01/02/25 05:48 Hydrocodone/Apap 5/325 Tablet PO 01/04/25 15:11 1 tab Q6HR PRN Administration PAIN SCALE 4-6 Aspirin 81 mg 12/30/24 09:00 01/02/25 08:22 Aspirin Ec 81 Mg Tabec PO 01/29/25 08:59 81 mg QDAY ASHWIN Administration Balsam Yong/[place] Oil 0 gm 01/01/25 21:00 01/02/25 10:15 Balsam Yong/[place] Oil (Venelex) 60 Gm Tube TOP 01/31/25 20:59 1 appln BID ASHWIN Administration Bumetanide 2 mg 12/30/24 06:00 01/02/25 05:24 Bumetanide Inj 0.25 Mg/Ml Vial 4 Ml IVP 01/29/25 05:59 2 mg BIDD ASHWIN Administration Cephalexin HCl 500 mg 12/30/24 06:00 01/02/25 05:24 Cephalexin 250 Mg Capsule PO 01/06/25 05:59 500 mg QID ASHWIN Administration Dextrose 25 ml 12/30/24 01:40 Dextrose 50%-Water Inj 50 Ml Syringe IV 01/29/25 01:39 Q15MIN PRN BG 50-70 responsive npo pt Dextrose 50 ml 12/30/24 01:40 Dextrose 50%-Water Inj 50 Ml Syringe IV 01/29/25 01:39 Q15MIN PRN BG <50 OR BG <70 & pt unresponsive Diltiazem HCl 120 mg 01/02/25 10:15 01/02/25 10:14 Diltiazem Cd 120 Mg Capcr PO 02/01/25 10:14 120 mg QDAY ASHWIN Administration Docusate Sodium 100 mg 12/30/24 09:00 01/02/25 08:22 Docusate Sod 100 Mg Capsule PO 01/29/25 08:59 100 mg QDAY ASHWIN Administration Protocol Doxycycline Hyclate 100 mg 01/01/25 21:00 01/02/25 08:21 Doxycycline 100 Mg Tablet PO 01/08/25 20:59 100 mg BID ASHWIN Administration Protocol Glucagon 1 mg 12/30/24 01:40 Glucagon Inj 1 Mg Vial IM Q15MIN PRN BG <70, and no IV access Insulin Glargine 12 unit 01/02/25 09:00 01/02/25 08:02 Insulin Glargine (Lantus) 5 Unit/0.05 Ml (Per 5 Units) SC 02/01/25 08:59 12 unit QDAY ASHWIN Administration Insulin Human Lispro 0 unit 12/31/24 09:35 01/02/25 08:01 Insulin Lispro (Admelog) 1 Unit/0.01 Ml Unit SC 01/29/25 07:29 2 unit AC ASHWIN Administration Protocol Morphine Sulfate 2 mg 12/30/24 15:29 12/31/24 17:10 Morphine Sulf Inj 10 Mg/Ml Vial IVP 01/04/25 02:01 2 mg Q4HR PRN Administration PAIN SCALE 7-10 (Severe Ondansetron HCl 4 mg 12/30/24 01:05 Ondansetron Inj 2 Mg/Ml Inj 2 Ml IVP 01/29/25 01:04 Q6H PRN NAUSEA OR VOMITING Protocol Rivaroxaban 20 mg 12/30/24 09:00 01/02/25 08:22 Rivaroxaban 10 Mg Tablet PO 01/29/25 08:59 20 mg QDAY ASHWIN Administration Sennosides 1 tab 12/30/24 09:00 01/02/25 08:22 Senna Tablet PO 01/29/25 08:59 1 tab QDAY ASHWIN Administration Protocol Tamsulosin HCl 0.4 mg 12/30/24 09:00 01/02/25 08:22 Tamsulosin Hcl 0.4 Mg Capsule PO 01/29/25 08:59 0.4 mg QDAY ASHWIN Administration Plan 64-year-old male past medical history of hypertension, diabetes, HFpEF, CAD, COPD, A-fib, seizures, hyperlipidemia who presents to the ED with bilateral leg swelling. Patient is admitted for cellulitis. #Bilateral lower extremity swelling, secondary to #Anasarca #Acute decompensated heart failure, HFpEF (50%) Given bilateral and symmetric nature of the exam findings it was felt that swelling was more due to anasarca in the setting of CHF rather than cellulitis. ARIANA may be due to cardiorenal. - Continue with Bumex 2 mg IV BID - Monitor strict I&Os, fluid restriction 1500 cc - Daily weight - Monitor closely - Will consider starting patient on SGLT2 inhibitors once renal function is stable. #SIRS positive #?Bilateral lower extremity cellulitis #Abnormal arterial duplex scan 2 to 3 weeks of progressive leg swelling with blisters that popped and are open and draining Patient went and walked to the bathroom and developed excruciating pain rated 10 out of 10 and sharp in both legs but more pronounced on the left compared to the right Patient with leukocytosis, low-grade fever, tachypneic, with endorgan damage ARIANA ED gave 500 mL bolus, did not give full sepsis bolus due to history of heart failure Bilateral lower extremity arterial was unable to assess ankle branchial index Arterial duplex suggestive of abnormal waveforms, recommended CTA abdominal aorta iliofemoral runoff with IV contrast, will hold off on the study as patient has ARIANA. Venous ultrasound was negative for DVTs ? Continue Keflex for now ? Continue Doxycycline for now ? Wound care ? Follow-up cultures ? Consider outpatient vascular surgery consult #Atrial fibrillation with slow ventricular response #Bigeminy #PVCs Initial EKG on admission showed slow afib with RvR. 6/5 patient noted to have bigeminy on tele. Patient not having any chest symptoms. CHADVASC 4, HAS BLED 1 point - Will continue with IV diuresis, per cardiology recommendations will continue diltiazem for now, will monitor heart rate closely. If patient's heart rate is in 30s, will stop diltiazem. - Continue Cardizem and Xarelto - Consulted cardiology for any possible recommendations #Acute kidney injury on CKD stage IIIb, improving #Most likely cardiorenal syndrome Got IV fluids in the ED. Patient creatinine worsened 1.8->2.1 Will monitor GFR closely renal function closely, will consult nephrology consult if patient's renal function continues to decline. - Will continue with IV diuresis and assess response ? Avoid nephrotoxins ? Renally dose medications #Hypertension #Hyperlipidemia #CAD #BPH Continue home medications ? Aspirin ? Tamsulosin #Iron-deficiency anemia Hemoglobin 10.7, MCV/MCH within normal limits Iron panel was significant for iron 24, TIBC 265, iron saturation 9%, unsaturated iron binding 241, ferritin 67. - Monitor hemoglobin and hematocrit - Will consider discharging on iron supplementation #History of seizure disorder Patient was on topiramate in the past for seizure disorder, has not seen neurologist in the last 10 years, last seizure was more than 10 years ago. Will refrain from starting patient on topiramate, patient can follow outpatient with neurology Health Maintenance: Disposition: Telemetry Fluids: None Feeding: Cardiac, fluid restriction 1500 cc, carb consistent low DVT prophylaxis: Xarelto Gastric Ulcer prophylaxis: Not indicated CODE STATUS: Full code Patient plan of care was discussed with the attending physician, Dr. Kidd. Ju Saez PGY1 Attending Provider Attestation/Addendum I attest that I was physically present for the evaluation, physical examination, lab and imaging review of the patient with the residents. I discussed the case with the residents and agree with the findings and plans of care as documented above. At bedside today, patient states he is feeling well and denies any new complaints. Saturating well on room air. Vitals are within normal limits except for mild hypertension. Lab results show improvement in kidney function, BUN/creatinine of 48/1.4 today from 42/1.8 yesterday. Continues to be on aggressive diuresis with Bumex 2 mg IV twice daily. Has 3635 cc of negative fluid balance. Continues to have 3+ bilateral pedal edema but improving compared to yesterday. We will continue with strict ins and outs, fluid restriction. Continues to be on Keflex and doxycycline for leg wounds, wound care following closely as well. Continues to be on Cardizem and Xarelto for A-fib with slow ventricular response. Heart rate has been above 40. Todd Kidd MD
[2025-01-02] MEDS: Magnesium Sulfate 4 GM Ivpb 4 GM/50 ML BAG IV (11:54)
--- NOTE | 2025-01-02 12:40 | PC.SS ---
SS met with pt at bedside to discuss PCP and DC plan. Per pt he was aligned with [facility] and they told him he can go to [facility] to establish a PCP. SS inquired if he recalled the PCP that was signing his HH prior to Hospital admit. Pt stated he does not remember. Pt also expressed to SS that he can not go home with his feet in the condition that they are in. Pt is requesting to DC to SNF. Pt preference is [facility]. SS reached out to Soniya to see if they are able to accept pt, no response. Message left. SS submitted SNF referral via [employer], pending responses.
[2025-01-03] VITALS (15 sets, daily range): BP systolic 123–169; BP diastolic 60–87; PULSE 41–52; RESP 8–25; TEMP 36.1–36.4; O2SAT 90–100; BMI 43.4; BMI 12.0
[2025-01-03] MEDS: cephALEXin 250 MG CAPSULE 500 MG PO ×4 (05:18→20:38)
[2025-01-03] MEDS: BUMETANIDE INJ 0.25 MG/ML VIAL 4 ML 2 MG IVP ×2 (05:18→17:17)
[2025-01-03 05:50] LABS: Basophils # (Auto) 0.1 Thou/mm3 (0.0-0.2); Basophils % (Auto) 1 % (0-2.5); Eosinophils # (Auto) 0.3 Thou/mm3 (0.0-0.5); Eosinophils % (Auto) 3 % (0-10); Hematocrit 35.6 % (41.0-53.0); Hemoglobin 11.6 g/dL (13.5-16.0); Immature Granulocytes % (Auto) 0 % (0-0); Immature Granulocytes Auto 0.04 Thou/mm3 (0.00-0.00); Lymphocytes # (Auto) 1.9 Thou/mm3 (1.0-4.8); Lymphocytes % (Auto) 21 % (10-50); Mean Corpuscular HGB Conc 32.6 g/dl (31.0-37.0); Mean Corpuscular Hemoglobin 27.1 pg (25.0-35.0); Mean Corpuscular Volume 83 fL (80-100); Monocytes # (Auto) 0.7 Thou/mm3 (0.0-0.8); Monocytes % (Auto) 8 % (0-12); Neutrophils # (Auto) 6.1 Thou/mm3 (1.8-7.7); Neutrophils % (Auto) 67 % (37-80); Nucleated Red Blood Cell % 0 /100 WBC (0); Platelet Count 397 Thou/mm3 (140-440); RDW Standard Deviation 48.2 fL (35.1-43.9); Red Blood Count 4.28 Miln/mm3 (4.50-5.90)
[2025-01-03 06:35] LABS: Alanine Aminotransferase 8 U/L (10-49); Albumin, Serum 3.7 gm/dL (3.4-4.8); Albumin/Globulin Ratio 1.2 (1.2-2.2); Alkaline Phosphatase 43 U/L (46-116); Anion Gap 12 (7-16); BUN/Creatinine Ratio 30 Ratio (12-20); Bilirubin,Total 0.7 mg/dL (0.3-1.2); Blood Urea Nitrogen 42 mg/dL (9-23); Calcium (Corrected) 9.2 mg/dL (8.5-10.1); Carbon Dioxide 29.1 mMol/L (20.0-31.0); Chloride 100 mMol/L (98-107); Creatinine (Component) 1.4 mg/dL (0.6-1.3); Estimated Creatinine Clearance 83.5 mL/min (>60); Globulin 3.1 gm/dL (2.3-3.5); Glucose 163 mg/dL (74-106); Magnesium 1.9 mg/dL (1.6-2.6); Osmolality,Calculated 295 (275-295); Potassium 3.8 mMol/L (3.4-5.1); Sodium 141 mMol/L (136-145); Total Protein 6.8 gm/dL (5.7-8.2); eGFR 56 See Note
[2025-01-03] MEDS: Magnesium Sulfate 2 GM Ivpb 2 GM/50 ML BAG IV (08:15)
[2025-01-03] MEDS: INSULIN GLARGINE (Lantus) 5 UNIT/0.05 ML (PER 5 UNITS) 12 UNIT SC (08:16)
[2025-01-03] MEDS: ASPIRIN EC 81 MG TABEC PO (08:16)
[2025-01-03] MEDS: SENNA TABLET 2 TAB PO (08:16)
[2025-01-03] MEDS: DOXYCYCLINE 100 MG TABLET PO (08:17)
[2025-01-03] MEDS: DOCUSATE SOD 100 MG CAPSULE PO (08:17)
[2025-01-03] MEDS: POTASSIUM CHLORIDE 20 mEq TABCR 40 MEQ PO (08:17)
[2025-01-03] MEDS: TAMSULOSIN HCL 0.4 MG CAPSULE PO (08:31)
[2025-01-03] MEDS: RIVAROXABAN 10 MG TABLET 20 MG PO (08:31)
--- NOTE | 2025-01-03 09:38 | PC.SS ---
Addendum entered by Bernadine Orosco 01/03/25 11:59: PASRR assessment completed and has been sent to [facility]. Addendum entered by Bernadine Orosco 01/03/25 11:42: SS followed up with Soniya at [facility] who states she does not have bed available at this time. Pt is aware. SS spoke to Cayla from [facility] who states she is unable to accept pt. SS spoke to Socorro from [facility] and she is aware pt does not have Medicare days available. [facility] is requesting a PT assessment. Per Socorro, once pt has worked with PT they can accept tomorrow. Physician residents are aware. Original Note: Follow up note: IV diuresis. SS spoke to Soniya from [facility] who explained pt does not have any Medicare days left and they would be using his part B. [employer] would be paying for room and board.
[2025-01-03] MEDS: DILTIAZEM CD 120 MG CAPCR PO (09:56)
[2025-01-03] MEDS: BALSAM PERU/CASTOR OIL (Venelex) 60 GM TUBE TOP (09:57)
[2025-01-03] MEDS: INSULIN LISPRO (AdmeLOG) 1 UNIT/0.01 ML UNIT SC ×2 (11:20→16:51)
--- NOTE | 2025-01-03 12:45 | PD.RESPRO ---
Documentation for date of: 01/03/25 Subjective Subjective Interval history: Patient seen and examined at bedside. Patient on Bumex 2 mg IV twice daily, renal function creatinine 1.4. Baseline creatinine noted to be 1.0 however significant improvement has been noted. Improvement in bilateral lower extremity edema, will continue with Keflex, discontinue doxycycline patient's MRSA nasal screen was negative. Discontinue diltiazem, patient started on metoprolol succinate 25 mg daily. Will consider adding another antihypertensive agent if patient's blood pressure continues to remain elevated. Patient is pending physical therapy evaluation. Was given electrolyte supplementation to keep potassium more than 4 and magnesium more than 2. Exam Vital Signs Temp Pulse Resp BP Pulse Ox O2 Del Method FiO2 97.0 F 44 L 12 169/75 H 96 BiPAP 28 01/03/25 08:00 01/03/25 11:57 01/03/25 08:00 01/03/25 09:56 01/03/25 08:00 01/03/25 08:00 01/03/25 06:10 Narrative Exam General Appearance: Alert & Oriented X3, obese male who is lying in bed in no acute distress. Statis dermatitis noted bilaterally. HEENT: Skull symmetrical and atraumatic. Conjunctivae pale pink and moist. Pupils equal, round, reactive to light and accommodation (PERRL). External ear without lesion or discharge. Straight, nares patient, mucosa pink, no discharge. Cardio: Normal Rate and Rhythm with S1 and S2 heart sounds. Systolic Murmur over mitral region. No bruits on carotid auscultation. Peripheral edema noted, 3+ Lungs: Symmetric with good expansion. Chest and back non-tender. Breath sounds vesicular without crackles, wheezing or rhonchi Abdomen: Non-tender, Non-distended, Normal Reactive Bowel Sounds Neuro: Alert, cooperative, oriented to person, place, and time. Speech clear. CN grossly intact. Upper motor strength 5/5 and Lower motor strength 5/5. Sensation intact. Objective Labs 01/04/25 05:35 01/04/25 05:38 Labs: Laboratory Results - last 24 hr 01/03/25 05:19 WBC 9.0 RBC 4.28 L Hgb 11.6 L Hct 35.6 L MCV 83 MCH 27.1 MCHC 32.6 RDW Std Deviation 48.2 H Plt Count 397 Neut % (Auto) 67 Lymph % (Auto) 21 [place] % (Auto) 8 Eos % (Auto) 3 Baso % (Auto) 1 Neut # (Auto) 6.1 Lymph # (Auto) 1.9 [place] # (Auto) 0.7 Eos # (Auto) 0.3 Baso # (Auto) 0.1 Immature Gran # (Auto) 0.04 H Absolute Nucleated RBC 0.00 Immature Gran % 0 Nucleated RBC % 0 Sodium 141 Potassium 3.8 D Chloride 100 Carbon Dioxide 29.1 Anion Gap 12 BUN 42 H Creatinine 1.4 H Estim Creat Clear Calc 83.5 eGFR 56 L BUN/Creatinine Ratio 30 H Glucose 163 H Calculated Osmolality 295 Calcium 9.0 Corrected Calcium 9.2 Magnesium 1.9 Total Bilirubin 0.7 ALT 8 L Alkaline Phosphatase 43 L Total Protein 6.8 Albumin 3.7 Globulin 3.1 Albumin/Globulin Ratio 1.2 Quality Measures Quality Measures sepsis Current suspected stage: ruled out Possible source: skin/soft tissue Blood cultures ordered: yes Antibiotic ordered: Yes Assessment & Plan Assessment Current Active Medications: Generic Name Dose Route Start Last Admin Trade Name Freq PRN Reason Stop Dose Admin Acetaminophen 650 mg 12/30/24 01:05 Acetaminophen 325 Mg Tablet PO 01/29/25 01:04 Q6H PRN Fever >99.5 Acetaminophen 1,000 mg 12/31/24 06:31 Acetaminophen 500 Mg Tablet PO 01/29/25 01:04 Q6H PRN PAIN SCALE 1-3 (mild Hydrocodone Bitart/Acetaminophen 1 tab 01/03/25 09:52 Hydrocodone/Apap 5/325 Tablet PO 01/04/25 15:11 Q6HR PRN PAIN SCALE 4-10(Mod-Sev Aspirin 81 mg 12/30/24 09:00 01/03/25 08:16 Aspirin Ec 81 Mg Tabec PO 01/29/25 08:59 81 mg QDAY ASHWIN Administration Balsam [place] Oil 0 gm 01/01/25 21:00 01/03/25 09:57 Balsam [place] Oil (Venelex) 60 Gm Tube TOP 01/31/25 20:59 1 appln BID ASHWIN Administration Bumetanide 2 mg 12/30/24 06:00 01/03/25 05:18 Bumetanide Inj 0.25 Mg/Ml Vial 4 Ml IVP 01/29/25 05:59 2 mg BIDD ASHWIN Administration Cephalexin HCl 500 mg 12/30/24 06:00 01/03/25 11:19 Cephalexin 250 Mg Capsule PO 01/06/25 05:59 500 mg QID ASHWIN Administration Dextrose 25 ml 12/30/24 01:40 Dextrose 50%-Water Inj 50 Ml Syringe IV 01/29/25 01:39 Q15MIN PRN BG 50-70 responsive npo pt Dextrose 50 ml 12/30/24 01:40 Dextrose 50%-Water Inj 50 Ml Syringe IV 01/29/25 01:39 Q15MIN PRN BG <50 OR BG <70 & pt unresponsive Diltiazem HCl 120 mg 01/02/25 10:15 01/03/25 09:56 Diltiazem Cd 120 Mg Capcr PO 02/01/25 10:14 120 mg QDAY ASHWIN Administration Docusate Sodium 100 mg 12/30/24 09:00 01/03/25 08:17 Docusate Sod 100 Mg Capsule PO 01/29/25 08:59 100 mg QDAY ASHWIN Administration Protocol Glucagon 1 mg 12/30/24 01:40 Glucagon Inj 1 Mg Vial IM Q15MIN PRN BG <70, and no IV access Insulin Glargine 12 unit 01/02/25 09:00 01/03/25 08:16 Insulin Glargine (Lantus) 5 Unit/0.05 Ml (Per 5 Units) SC 02/01/25 08:59 12 unit QDAY ASHWIN Administration Insulin Human Lispro 0 unit 12/31/24 09:35 01/03/25 11:20 Insulin Lispro (Admelog) 1 Unit/0.01 Ml Unit SC 01/29/25 07:29 2 unit AC ASHWIN Administration Protocol Ondansetron HCl 4 mg 12/30/24 01:05 Ondansetron Inj 2 Mg/Ml Inj 2 Ml IVP 01/29/25 01:04 Q6H PRN NAUSEA OR VOMITING Protocol Rivaroxaban 20 mg 12/30/24 09:00 01/03/25 08:31 Rivaroxaban 10 Mg Tablet PO 01/29/25 08:59 20 mg QDAY ASHWIN Administration Sennosides 2 tab 01/03/25 09:00 01/03/25 08:16 Senna Tablet PO 02/02/25 08:59 2 tab QDAY ASHWIN Administration Protocol Tamsulosin HCl 0.4 mg 12/30/24 09:00 01/03/25 08:31 Tamsulosin Hcl 0.4 Mg Capsule PO 01/29/25 08:59 0.4 mg QDAY ASHWIN Administration Plan 64-year-old male past medical history of hypertension, diabetes, HFpEF, CAD, COPD, A-fib, seizures, hyperlipidemia who presents to the ED with bilateral leg swelling. Patient is admitted for cellulitis. #Bilateral lower extremity swelling, secondary to #Anasarca #Acute decompensated heart failure, HFpEF (50%) Given bilateral and symmetric nature of the exam findings it was felt that swelling was more due to anasarca in the setting of CHF rather than cellulitis. ARIANA may be due to cardiorenal. - Continue with Bumex 2 mg IV BID - Monitor strict I&Os, fluid restriction 1500 cc - Daily weight - Monitor closely - Will consider starting patient on SGLT2 inhibitors once renal function is stable. #SIRS positive #?Bilateral lower extremity cellulitis #Abnormal arterial duplex scan 2 to 3 weeks of progressive leg swelling with blisters that popped and are open and draining Patient went and walked to the bathroom and developed excruciating pain rated 10 out of 10 and sharp in both legs but more pronounced on the left compared to the right Patient with leukocytosis, low-grade fever, tachypneic, with endorgan damage ARIANA ED gave 500 mL bolus, did not give full sepsis bolus due to history of heart failure Bilateral lower extremity arterial was unable to assess ankle branchial index Arterial duplex suggestive of abnormal waveforms, recommended CTA abdominal aorta iliofemoral runoff with IV contrast, will hold off on the study as patient has ARIANA. Venous ultrasound was negative for DVTs Blood cultures unremarkable, urine culture negative, MRSA nasal screen negative ? Continue Keflex for now, discontinue doxycycline ? Consider outpatient vascular surgery consult #Atrial fibrillation with slow ventricular response #Bigeminy #PVCs Initial EKG on admission showed slow afib with RvR. 6/5 patient noted to have bigeminy on tele. Patient not having any chest symptoms. CHADVASC 4, HAS BLED 1 point - Will continue with IV diuresis, discontinue diltiazem, started on metoprolol succinate 25mg daily - Continue metoprolol and Xarelto - Consulted cardiology for any possible recommendations #Acute kidney injury on CKD stage IIIb, improving #Most likely cardiorenal syndrome Got IV fluids in the ED. Patient creatinine worsened 1.8->2.1 Will monitor GFR closely renal function closely, will consult nephrology consult if patient's renal function continues to decline. - Will continue with IV diuresis and assess response ? Avoid nephrotoxins ? Renally dose medications #Hypertension #Hyperlipidemia #CAD #BPH Continue home medications ? Aspirin ? Tamsulosin #Iron-deficiency anemia Hemoglobin 10.7, MCV/MCH within normal limits Iron panel was significant for iron 24, TIBC 265, iron saturation 9%, unsaturated iron binding 241, ferritin 67. - Monitor hemoglobin and hematocrit - Will consider discharging on iron supplementation #History of seizure disorder Patient was on topiramate in the past for seizure disorder, has not seen neurologist in the last 10 years, last seizure was more than 10 years ago. Will refrain from starting patient on topiramate, patient can follow outpatient with neurology Health Maintenance: Disposition: Telemetry Fluids: None Feeding: Cardiac, fluid restriction 1500 cc, carb consistent low DVT prophylaxis: Xarelto Gastric Ulcer prophylaxis: Not indicated CODE STATUS: Full code Patient plan of care was discussed with the attending physician, Dr. Kidd. Ju Saez PGY1 Attending Provider Attestation/Addendum I attest that I was physically present for the evaluation, physical examination, lab and imaging review of the patient with the residents. I discussed the case with the residents and agree with the findings and plans of care as documented above. Todd Kidd MD
--- NOTE | 2025-01-03 12:48 | ESPR_ITS ---
Documentation for date of: 01/03/25 Subjective Subjective Interval history: Patient is a 64-year-old male with a past medical history of essential hypertension, hyperlipidemia, CAD, diabetes mellitus type 2 insulin-dependent, CHF 55-60% (11/12/2024), paroxysmal atrial fibrillation, history of seizures. obesity, and history of MRSA bacteremia. Patient presented to the ER via ambulance with chief complain of bilateral lower extremity swelling and lower extremity pain 05/06. Patient recently completed rehabilation at [facility]. Patient denied chest pain or SOB. Patient denied orthopnea or Paroxysmal nocturnal orthopnea. Patient stated he has continue to use all his medication as prescribed. Patient admitted for Sepsis, rule out and bilateral lower extremity cellulitis. ER Course: Vitals: BP 129/62, HR 48, RR 23, T 100.1, spO2 94 RA CBC: WBC 13.1, 11.8 hgb, hct 35.7, mcv 82, pl 391 CMP: Na 139, K 5.1, Cl 107, bicarb 21.1, BUN H, CR 1.8, BUN/Cr 22, GFR 42 Glucose 299 Lactic 1.8 Troponin 0.025 Venous Doppler Negative Chest X-ray: no significant cardiac enlargement, lungs are clear 12/31/2024: Pateint examined this morning at bedside. Patient denied SOB overnight and denied chest pain/pressure. Peripheral edema still noted and tender to touch per patient. Overnight PVC still noted wth HR as low ast 40 recorded. Tele box HR flutuates based on exertion. Patient stated he was sleeping on a cot after being discharged from SNF and then was sleeping on a recliner. Patient does not wasnt to return to SNF as he would have to pay out of pocket and has not found a stable home since moving to [place] as a majority of his time has been taken up hospitalized. 01/03/2025: Patient examined at bedside. Patient denied SOB or chest pain. Improved peripheral edema. Net blance over 24 hours -1440. PVC, Bigmeny still present. Telebox noted 40-50, likely acutal HR near 70/80 HR. EKG overweekend noted to be similar with HR near 60s. Patient open to SNF despite initial hesitancy. -Discontinue Diltiazem 120 mg qday as still HR is low between 40-60/min even after the ARIANA is improving-->Transition to Metoprolol XL 25 mg PO Qday Exam Vital Signs Temp Pulse Resp BP Pulse Ox O2 Del Method FiO2 97.0 F 44 L 12 169/75 H 96 BiPAP 28 01/03/25 08:00 01/03/25 11:57 01/03/25 08:00 01/03/25 09:56 01/03/25 08:00 01/03/25 08:00 01/03/25 06:10 Narrative Exam General Appearance: Alert & Oriented X3, obese male who is lying in bed in no acute distress. Statis dermatitis noted bilaterally. HEENT: Skull symmetrical and atraumatic. Conjunctivae pale pink and moist. Pupils equal, round, reactive to light and accommodation (PERRL). External ear without lesion or discharge. Straight, nares patient, mucosa pink, no discharge. Cardio: Normal Rate and Rhythm with S1 and S2 heart sounds. Systolic Murmur over mitral region. No bruits on carotid auscultation. Peripheral edema noted, 2+ Lungs: Symmetric with good expansion. Chest and back non-tender. Breath sounds vesicular without crackles, wheezing or rhonchi Abdomen: Non-tender, Non-distended, Normal Reactive Bowel Sounds Neuro: Alert, cooperative, oriented to person, place, and time. Speech clear. CN grossly intact. Upper motor strength 5/5 and Lower motor strength 5/5. Sensation intact. Objective Labs 01/03/25 05:19 01/03/25 05:19 Labs: Laboratory Results - last 24 hr 01/03/25 05:19 WBC 9.0 RBC 4.28 L Hgb 11.6 L Hct 35.6 L MCV 83 MCH 27.1 MCHC 32.6 RDW Std Deviation 48.2 H Plt Count 397 Neut % (Auto) 67 Lymph % (Auto) 21 [place] % (Auto) 8 Eos % (Auto) 3 Baso % (Auto) 1 Neut # (Auto) 6.1 Lymph # (Auto) 1.9 [place] # (Auto) 0.7 Eos # (Auto) 0.3 Baso # (Auto) 0.1 Immature Gran # (Auto) 0.04 H Absolute Nucleated RBC 0.00 Immature Gran % 0 Nucleated RBC % 0 Sodium 141 Potassium 3.8 D Chloride 100 Carbon Dioxide 29.1 Anion Gap 12 BUN 42 H Creatinine 1.4 H Estim Creat Clear Calc 83.5 eGFR 56 L BUN/Creatinine Ratio 30 H Glucose 163 H Calculated Osmolality 295 Calcium 9.0 Corrected Calcium 9.2 Magnesium 1.9 Total Bilirubin 0.7 ALT 8 L Alkaline Phosphatase 43 L Total Protein 6.8 Albumin 3.7 Globulin 3.1 Albumin/Globulin Ratio 1.2 Quality Measures Quality Measures sepsis Current suspected stage: ruled out Possible source: skin/soft tissue Blood cultures ordered: yes Antibiotic ordered: Yes Assessment & Plan Assessment Current Active Medications: Generic Name Dose Route Start Last Admin Trade Name Freq PRN Reason Stop Dose Admin Acetaminophen 650 mg 12/30/24 01:05 Acetaminophen 325 Mg Tablet PO 01/29/25 01:04 Q6H PRN Fever >99.5 Acetaminophen 1,000 mg 12/31/24 06:31 Acetaminophen 500 Mg Tablet PO 01/29/25 01:04 Q6H PRN PAIN SCALE 1-3 (mild Hydrocodone Bitart/Acetaminophen 1 tab 01/03/25 09:52 Hydrocodone/Apap 5/325 Tablet PO 01/04/25 15:11 Q6HR PRN PAIN SCALE 4-10(Mod-Sev Aspirin 81 mg 12/30/24 09:00 01/03/25 08:16 Aspirin Ec 81 Mg Tabec PO 01/29/25 08:59 81 mg QDAY ASHWIN Administration Balsam [place] Oil 0 gm 01/01/25 21:00 01/03/25 09:57 Balsam [place] Oil (Venelex) 60 Gm Tube TOP 01/31/25 20:59 1 appln BID ASHWIN Administration Bumetanide 2 mg 12/30/24 06:00 01/03/25 05:18 Bumetanide Inj 0.25 Mg/Ml Vial 4 Ml IVP 01/29/25 05:59 2 mg BIDD ASHWIN Administration Cephalexin HCl 500 mg 12/30/24 06:00 01/03/25 11:19 Cephalexin 250 Mg Capsule PO 01/06/25 05:59 500 mg QID ASHWIN Administration Dextrose 25 ml 12/30/24 01:40 Dextrose 50%-Water Inj 50 Ml Syringe IV 01/29/25 01:39 Q15MIN PRN BG 50-70 responsive npo pt Dextrose 50 ml 12/30/24 01:40 Dextrose 50%-Water Inj 50 Ml Syringe IV 01/29/25 01:39 Q15MIN PRN BG <50 OR BG <70 & pt unresponsive Diltiazem HCl 120 mg 01/02/25 10:15 01/03/25 09:56 Diltiazem Cd 120 Mg Capcr PO 02/01/25 10:14 120 mg QDAY ASHWIN Administration Docusate Sodium 100 mg 12/30/24 09:00 01/03/25 08:17 Docusate Sod 100 Mg Capsule PO 01/29/25 08:59 100 mg QDAY ASHWIN Administration Protocol Glucagon 1 mg 12/30/24 01:40 Glucagon Inj 1 Mg Vial IM Q15MIN PRN BG <70, and no IV access Insulin Glargine 12 unit 01/02/25 09:00 01/03/25 08:16 Insulin Glargine (Lantus) 5 Unit/0.05 Ml (Per 5 Units) SC 02/01/25 08:59 12 unit QDAY ASHWIN Administration Insulin Human Lispro 0 unit 12/31/24 09:35 01/03/25 11:20 Insulin Lispro (Admelog) 1 Unit/0.01 Ml Unit SC 01/29/25 07:29 2 unit AC ASHWIN Administration Protocol Ondansetron HCl 4 mg 12/30/24 01:05 Ondansetron Inj 2 Mg/Ml Inj 2 Ml IVP 01/29/25 01:04 Q6H PRN NAUSEA OR VOMITING Protocol Rivaroxaban 20 mg 12/30/24 09:00 01/03/25 08:31 Rivaroxaban 10 Mg Tablet PO 01/29/25 08:59 20 mg QDAY ASHWIN Administration Sennosides 2 tab 01/03/25 09:00 01/03/25 08:16 Senna Tablet PO 02/02/25 08:59 2 tab QDAY ASHWIN Administration Protocol Tamsulosin HCl 0.4 mg 12/30/24 09:00 01/03/25 08:31 Tamsulosin Hcl 0.4 Mg Capsule PO 01/29/25 08:59 0.4 mg QDAY ASHWIN Administration Plan Patient is a 64-year-old male with a past medical history of essential hypertension, hyperlipidemia, CAD, diabetes mellitus type 2 insulin-dependent, CHF 55-60% (11/12/2024), paroxysmal atrial fibrillation, history of seizures. obesity who was admitted for cellulits and sepsis rule out. Cardiology consulted for bigeminy PVC with history of Atrial fibrillation. #Bradycardia #Paroxysmal Atrial Fibrillation, rate controlled on Diltiazem #PVCs Patient has a past medical history of atrial fibrillation, rate controlled on Diltizaem and Rivaroxaban. On admission, patient presented with PVCs and bradycardia. Bradycardia likely secondary to medication vs electrolytes vs idiopathic. Continue to monitor vitals and continue Diltiazem 120 mg qday. TSH (12/30/2024): 0.95. Electrolytes within normal limits. Plan -Continue Rivaroxaban -Discontinue Diltiazem 120 mg qday as still HR is low between 40-60/min even after the ARIANA is improving-->Transition to Metoprolol XL 25 mg PO Qday -K>4 and Mg >2 -continue to monitor for worsening bradycardia # Acute on chronic diastolic CHF exacerbation - HFpEF 55-60% (11/12/2024) with Diastolic Dysfunction #CAD #HLD #HTN Etiology: Likley in the setting of cardiomyopathy secondary of Afib, hypertension, obesity vs ischemic but less likely as there are no changes in EKG indicating deep Q waves or history of NH. Echo (11/12/2024): Poor quality images. No clear valvular vegetations. Consider REECE if high clinical index of suspicion. Normal LV size and function. Estimated EF 55-60%. Mild LVH. Diastolic dysfunction present but cannot be graded because of the A-fib. Moderately dilated RV. Normal RV function. Elevated RVSP. Mild biatrial dilatation. Right greater than left. Mild MR. Trace TR. TSH (12/30/2024): 0.95 Lipid Panel (11/09/2024): Triglycerides 127, Cholesterol 127, LDL 63, HDL 39, 01/03/2025: 960/output 2400/-1440 NYHA Class: III ASCVD: High Intensity statins recommended Plan: -Bumex 2 mg IVP BID-->consider transitioning to Bumex 1 mg PO once daily if patient will be discharged. -Aspirin 81 mg Qday -Consider Atorvastatin -Aggressive Diuresis -K>4 and Mg >2 -Consider Fluid Restriction and Sodium Restriction 2 g per day -SpO <90%, support PRN -work towards GDMT -Daily Weights #ARIANA, improving ARIANA likely pre-renal in the setting of dehydration intake givne BUN/CR >20 and patient's baseline maybe near 1.2 based on labs from previous admission in October. Underlying Cardio-renal can not be ruled out given CHF and ARIANA. Underlying CKD can not be rule out given previous renal failure, requiring temporary dialysis. In addition, mild bilateral renal scar formation noted on US. US: Mild bilateral renal parenchymal scar formation BUN 2.1 (12/30/2024)-->BUN 42 Cr 1.4 GFR 56 (01/03/2025) Plan -Avoid nephrotoxins -Renall Dose Medication -Encourage oral hydration w/in limitis of fluid restriction -Consider urine electrolytes (may be incorrect given lasix) #Bilateral lower extremity cellulitis #Luekocytosis, resolved. #Sepsis secondary to soft tissue infection, Ruled OUT. Cellulitis can not be ruled out as patient met SIRs criteria on admission and concern for cellulitis, elevated WBC count on admission on 13.1 vs worsening lower peripheral edema vs concern for past medical history of MRSA bacteremia. Patient completed antibiotics via PICC line. Echo at that time negative for valvular vegetations. Plan: -Doxycyline and Keflex (12/29/2024--) -Blood Cultures Negative 48 hours -Urine Cultures Negative #Diabetes Mellitus Type II, Insulin dependent #Hyperglycemia Past medical history of diabetes mellitus, poorly controlled despite Sliding scale. Patient would likely benefit from long acting insulin. A1c (12/30/2024) 7.7 Plan -Glargine 12 units qday -Sliding Scale -Monitor Fasting Glucose -Consider carb consisten low diet #Microcytic Anemia Likely in he setting of iron deficiency anemia. No carl blood loss reported vs chronic inflammation secondary to diabetes mellitus. 10 hgb 11.3 hct 36.4 Iron Panel: Iron 24, TIBC 265, Iron Saturation 9 (L), Unsat Iron Binding 241, Ferritin 67 Plan -Consider Folic and Thiamine -continue to monitor hgb >7 #MARK Consider Cpap at night #BPH -Resume home Tamsulosin #History of Seizures Health Maintenance: Disp: Pt is currently admitted to floors for further management of CHF and cellulitis, cardiology consulted for history of A fib and PVCs. FEN: Cardiac Diet, consider carb consistent low DVT: Rivaroxaban Code: Full Code - The patient's plan was discussed with attending Dr. Amy Yates MD PGY1 Internal Medicine Attending Provider Attestation/Addendum I have personally seen and examined the patient separately on the above date of service and discussed the plan of care with the resident. I reviewed the resident Dr. Amy Yates consultation progress note and agree with the resident findings and plan in the note above and have also edited the documentation to reflect my findings and plan. Nacho Yoon M.D. Interventional Cardiology
[2025-01-03] MEDS: HYDROcodone/APAP 5/325 TABLET 1 TAB PO (14:40)
[2025-01-04] VITALS (9 sets, daily range): BP systolic 120–169; BP diastolic 58–83; PULSE 45–49; RESP 14–18; TEMP 35.9–36.8; O2SAT 95–99
[2025-01-04] MEDS: BUMETANIDE INJ 0.25 MG/ML VIAL 4 ML 2 MG IVP (05:47)
[2025-01-04] MEDS: cephALEXin 250 MG CAPSULE 500 MG PO ×2 (05:48→12:09)
[2025-01-04 06:07] LABS: Basophils # (Auto) 0.1 Thou/mm3 (0.0-0.2); Basophils % (Auto) 1 % (0-2.5); Eosinophils # (Auto) 0.2 Thou/mm3 (0.0-0.5); Eosinophils % (Auto) 3 % (0-10); Hemoglobin 11.6 g/dL (13.5-16.0); Immature Granulocytes % (Auto) 0 % (0-0); Immature Granulocytes Auto 0.01 Thou/mm3 (0.00-0.00); Lymphocytes # (Auto) 1.6 Thou/mm3 (1.0-4.8); Lymphocytes % (Auto) 19 % (10-50); Mean Corpuscular HGB Conc 33.1 g/dl (31.0-37.0); Mean Corpuscular Hemoglobin 27.1 pg (25.0-35.0); Mean Corpuscular Volume 82 fL (80-100); Monocytes # (Auto) 0.8 Thou/mm3 (0.0-0.8); Monocytes % (Auto) 9 % (0-12); Neutrophils # (Auto) 5.9 Thou/mm3 (1.8-7.7); Neutrophils % (Auto) 69 % (37-80); Nucleated Red Blood Cell % 0 /100 WBC (0); Platelet Count 379 Thou/mm3 (140-440); RDW Standard Deviation 47.8 fL (35.1-43.9); Red Blood Count 4.28 Miln/mm3 (4.50-5.90); White Blood Count 8.7 Thou/mm3 (3.8-10.6)
[2025-01-04 06:37] LABS: Alanine Aminotransferase 8 U/L (10-49); Albumin, Serum 3.8 gm/dL (3.4-4.8); Albumin/Globulin Ratio 1.2 (1.2-2.2); Alkaline Phosphatase 44 U/L (46-116); Anion Gap 10 (7-16); BUN/Creatinine Ratio 29 Ratio (12-20); Bilirubin,Total 0.8 mg/dL (0.3-1.2); Blood Urea Nitrogen 44 mg/dL (9-23); Calcium (Corrected) 9.2 mg/dL (8.5-10.1); Carbon Dioxide 31.6 mMol/L (20.0-31.0); Chloride 99 mMol/L (98-107); Creatinine (Component) 1.5 mg/dL (0.6-1.3); Globulin 3.2 gm/dL (2.3-3.5); Glucose 155 mg/dL (74-106); Magnesium 1.8 mg/dL (1.6-2.6); Osmolality,Calculated 295 (275-295); Potassium 3.9 mMol/L (3.4-5.1); Sodium 141 mMol/L (136-145); eGFR 52 See Note
--- NOTE | 2025-01-04 07:30 | PD.RESPRO ---
Documentation for date of: 01/04/25 Subjective Subjective Interval history: Patient is a 64-year-old male with a past medical history of essential hypertension, hyperlipidemia, CAD, diabetes mellitus type 2 insulin-dependent, CHF 55-60% (11/12/2024), paroxysmal atrial fibrillation, history of seizures. obesity, and history of MRSA bacteremia. Patient presented to the ER via ambulance with chief complain of bilateral lower extremity swelling and lower extremity pain 05/06. Patient recently completed rehabilation at [facility]. Patient denied chest pain or SOB. Patient denied orthopnea or Paroxysmal nocturnal orthopnea. Patient stated he has continue to use all his medication as prescribed. Patient admitted for Sepsis, rule out and bilateral lower extremity cellulitis. ER Course: Vitals: BP 129/62, HR 48, RR 23, T 100.1, spO2 94 RA CBC: WBC 13.1, 11.8 hgb, hct 35.7, mcv 82, pl 391 CMP: Na 139, K 5.1, Cl 107, bicarb 21.1, BUN H, CR 1.8, BUN/Cr 22, GFR 42 Glucose 299 Lactic 1.8 Troponin 0.025 Venous Doppler Negative Chest X-ray: no significant cardiac enlargement, lungs are clear 12/31/2024: Pateint examined this morning at bedside. Patient denied SOB overnight and denied chest pain/pressure. Peripheral edema still noted and tender to touch per patient. Overnight PVC still noted wth HR as low ast 40 recorded. Tele box HR flutuates based on exertion. Patient stated he was sleeping on a cot after being discharged from SNF and then was sleeping on a recliner. Patient does not wasnt to return to SNF as he would have to pay out of pocket and has not found a stable home since moving to [place] as a majority of his time has been taken up hospitalized. 01/03/2025: Patient examined at bedside. Patient denied SOB or chest pain. Improved peripheral edema. Net balance over 24 hours -1440. PVC, Bigmeny still present. Telebox noted 40-50, likely acutal HR near 70/80 HR. EKG overweekend noted to be similar with HR near 60s. Patient open to SNF despite initial hesitancy. -Discontinue Diltiazem 120 mg qday as still HR is low between 40-60/min even after the ARIANA is improving-->Transition to Metoprolol XL 25 mg PO Qday 01/04/2025: Overnight, patient in a Afib with HR in the 40s with stable vitals. Patient continues to use CPAP overnight. Improved peripheral edema. Patient is pending SNF. Denied chest pain or shortness of breath. Exam Vital Signs Temp Pulse Resp BP Pulse Ox O2 Del Method FiO2 96.9 F 45 L 15 169/83 H 99 BiPAP 28 01/04/25 04:00 01/04/25 05:47 01/04/25 04:00 01/04/25 05:47 01/04/25 04:00 01/04/25 04:00 01/04/25 02:32 Narrative Exam General Appearance: Alert & Oriented X3, obese male who is lying in bed in no acute distress. Statis dermatitis noted bilaterally. HEENT: Skull symmetrical and atraumatic. Conjunctivae pale pink and moist. Pupils equal, round, reactive to light and accommodation (PERRL). External ear without lesion or discharge. Straight, nares patient, mucosa pink, no discharge. Cardio: Normal Rate and Rhythm with S1 and S2 heart sounds. Systolic Murmur over mitral region. No bruits on carotid auscultation. Peripheral edema noted, 1-2. Lungs: Symmetric with good expansion. Chest and back non-tender. Breath sounds vesicular without crackles, wheezing or rhonchi Abdomen: Non-tender, Non-distended, Normal Reactive Bowel Sounds Neuro: Alert, cooperative, oriented to person, place, and time. Speech clear. CN grossly intact. Upper motor strength 5/5 and Lower motor strength 5/5. Sensation intact. Objective Labs 01/04/25 05:35 01/04/25 05:38 Labs: Laboratory Results - last 24 hr 01/04/25 01/04/25 05:35 05:38 WBC 8.7 RBC 4.28 L Hgb 11.6 L Hct 35.0 L MCV 82 MCH 27.1 MCHC 33.1 RDW Std Deviation 47.8 H Plt Count 379 Neut % (Auto) 69 Lymph % (Auto) 19 [place] % (Auto) 9 Eos % (Auto) 3 Baso % (Auto) 1 Neut # (Auto) 5.9 Lymph # (Auto) 1.6 [place] # (Auto) 0.8 Eos # (Auto) 0.2 Baso # (Auto) 0.1 Immature Gran # (Auto) 0.01 H Absolute Nucleated RBC 0.00 Immature Gran % 0 Nucleated RBC % 0 Sodium 141 Potassium 3.9 Chloride 99 Carbon Dioxide 31.6 H Anion Gap 10 BUN 44 H Creatinine 1.5 H Estim Creat Clear Calc 78.0 eGFR 52 L BUN/Creatinine Ratio 29 H Glucose 155 H Calculated Osmolality 295 Calcium 9.0 Corrected Calcium 9.2 Magnesium 1.8 Total Bilirubin 0.8 ALT 8 L Alkaline Phosphatase 44 L Total Protein 7.0 Albumin 3.8 Globulin 3.2 Albumin/Globulin Ratio 1.2 Quality Measures Quality Measures sepsis Current suspected stage: ruled out Possible source: skin/soft tissue Blood cultures ordered: yes Antibiotic ordered: Yes Assessment & Plan Assessment Current Active Medications: Generic Name Dose Route Start Last Admin Trade Name Freq PRN Reason Stop Dose Admin Acetaminophen 650 mg 12/30/24 01:05 Acetaminophen 325 Mg Tablet PO 01/29/25 01:04 Q6H PRN Fever >99.5 Acetaminophen 1,000 mg 12/31/24 06:31 Acetaminophen 500 Mg Tablet PO 01/29/25 01:04 Q6H PRN PAIN SCALE 1-3 (mild Hydrocodone Bitart/Acetaminophen 1 tab 01/03/25 09:52 01/03/25 14:40 Hydrocodone/Apap 5/325 Tablet PO 01/04/25 15:11 1 tab Q6HR PRN Administration PAIN SCALE 4-10(Mod-Sev Aspirin 81 mg 12/30/24 09:00 01/03/25 08:16 Aspirin Ec 81 Mg Tabec PO 01/29/25 08:59 81 mg QDAY ASHWIN Administration Balsam Yong/Cochran Oil 0 gm 01/01/25 21:00 01/03/25 22:50 Balsam Yong/Cochran Oil (Venelex) 60 Gm Tube TOP 01/31/25 20:59 Not Given BID ASHWIN Bumetanide 2 mg 12/30/24 06:00 01/04/25 05:47 Bumetanide Inj 0.25 Mg/Ml Vial 4 Ml IVP 01/29/25 05:59 2 mg BIDD ASHWIN Administration Cephalexin HCl 500 mg 12/30/24 06:00 01/04/25 05:48 Cephalexin 250 Mg Capsule PO 01/06/25 05:59 500 mg QID ASHWIN Administration Dextrose 25 ml 12/30/24 01:40 Dextrose 50%-Water Inj 50 Ml Syringe IV 01/29/25 01:39 Q15MIN PRN BG 50-70 responsive npo pt Dextrose 50 ml 12/30/24 01:40 Dextrose 50%-Water Inj 50 Ml Syringe IV 01/29/25 01:39 Q15MIN PRN BG <50 OR BG <70 & pt unresponsive Docusate Sodium 100 mg 12/30/24 09:00 01/03/25 08:17 Docusate Sod 100 Mg Capsule PO 01/29/25 08:59 100 mg QDAY ASHWIN Administration Protocol Glucagon 1 mg 12/30/24 01:40 Glucagon Inj 1 Mg Vial IM Q15MIN PRN BG <70, and no IV access Insulin Glargine 12 unit 01/02/25 09:00 01/03/25 08:16 Insulin Glargine (Lantus) 5 Unit/0.05 Ml (Per 5 Units) SC 02/01/25 08:59 12 unit QDAY ASHWIN Administration Insulin Human Lispro 0 unit 12/31/24 09:35 01/03/25 16:51 Insulin Lispro (Admelog) 1 Unit/0.01 Ml Unit SC 01/29/25 07:29 2 unit AC ASHWIN Administration Protocol Metoprolol Succinate 25 mg 01/04/25 09:00 Metoprolol Succinate Xl 25 Mg Tabcr PO 02/03/25 08:59 QDAY ASHWIN Ondansetron HCl 4 mg 12/30/24 01:05 Ondansetron Inj 2 Mg/Ml Inj 2 Ml IVP 01/29/25 01:04 Q6H PRN NAUSEA OR VOMITING Protocol Rivaroxaban 20 mg 12/30/24 09:00 01/03/25 08:31 Rivaroxaban 10 Mg Tablet PO 01/29/25 08:59 20 mg QDAY ASHWIN Administration Sennosides 2 tab 01/03/25 09:00 01/03/25 08:16 Senna Tablet PO 02/02/25 08:59 2 tab QDAY ASHWIN Administration Protocol Tamsulosin HCl 0.4 mg 12/30/24 09:00 01/03/25 08:31 Tamsulosin Hcl 0.4 Mg Capsule PO 01/29/25 08:59 0.4 mg QDAY ASHWIN Administration Plan Patient is a 64-year-old male with a past medical history of essential hypertension, hyperlipidemia, CAD, diabetes mellitus type 2 insulin-dependent, CHF 55-60% (11/12/2024), paroxysmal atrial fibrillation, history of seizures. obesity who was admitted for cellulits and sepsis rule out. Cardiology consulted for bigeminy PVC with history of Atrial fibrillation. #Bradycardia #Paroxysmal Atrial Fibrillation, rate controlled on Metoprolol XL #PVCs Patient has a past medical history of atrial fibrillation, rate controlled on Diltizaem and Rivaroxaban. On admission, patient presented with PVCs and bradycardia. Bradycardia likely secondary to medication vs electrolytes vs idiopathic. Continue to monitor vitals and continue Diltiazem 120 mg qday. TSH (12/30/2024): 0.95. Electrolytes within normal limits. CHADsVASc; 3 points HAS BLED 1 point Plan -Continue Rivaroxaban -Discontinue Diltiazem 120 mg qday as still HR is low between 40-60/min even after the ARIANA is improving-->Transition to Metoprolol XL 25 mg PO Qday -K>4 and Mg >2 -continue to monitor for worsening bradycardia # Acute on chronic diastolic CHF exacerbation - HFpEF 55-60% (11/12/2024) with Diastolic Dysfunction #CAD #HLD #HTN Etiology: Likley in the setting of cardiomyopathy secondary of Afib, hypertension, obesity vs ischemic but less likely as there are no changes in EKG indicating deep Q waves or history of ID. Echo (11/12/2024): Poor quality images. No clear valvular vegetations. Consider REECE if high clinical index of suspicion. Normal LV size and function. Estimated EF 55-60%. Mild LVH. Diastolic dysfunction present but cannot be graded because of the A-fib. Moderately dilated RV. Normal RV function. Elevated RVSP. Mild biatrial dilatation. Right greater than left. Mild MR. Trace TR. TSH (12/30/2024): 0.95 Lipid Panel (11/09/2024): Triglycerides 127, Cholesterol 127, LDL 63, HDL 39, 01/04/2025: 960/output 2400/-1430 Total Net Balance: -2870 Dry Weight: 153 kg NYHA Class: III ASCVD: High Intensity statins recommended Plan: -Bumex 2 mg IVP BID-->consider transitioning to Bumex 2 mg PO once daily if patient will be discharged. -Aspirin 81 mg Qday -Dpagliflozin 10 mg qday, started by primary team -Consider Atorvastatin -Aggressive Diuresis -K>4 and Mg >2 -Consider Fluid Restriction and Sodium Restriction 2 g per day -SpO <90%, support PRN -work towards GDMT -Daily Weights #ARIANA, improving ARIANA likely pre-renal in the setting of dehydration intake givne BUN/CR >20 and patient's baseline maybe near 1.2 based on labs from previous admission in October. Underlying Cardio-renal can not be ruled out given CHF and ARIANA. Underlying CKD can not be rule out given previous renal failure, requiring temporary dialysis. In addition, mild bilateral renal scar formation noted on US. US: Mild bilateral renal parenchymal scar formation BUN 2.1 (12/30/2024)-->BUN 42 Cr 1.4 GFR 56 (01/03/2025) Plan -Avoid nephrotoxins -Renall Dose Medication -Encourage oral hydration w/in limitis of fluid restriction -Consider urine electrolytes (may be incorrect given lasix) #Bilateral lower extremity cellulitis #Luekocytosis, resolved. #Sepsis secondary to soft tissue infection, Ruled OUT. Cellulitis can not be ruled out as patient met SIRs criteria on admission and concern for cellulitis, elevated WBC count on admission on 13.1 vs worsening lower peripheral edema vs concern for past medical history of MRSA bacteremia. Patient completed antibiotics via PICC line. Echo at that time negative for valvular vegetations. Plan: -Doxycyline and Keflex (12/29/2024--) -Blood Cultures Negative 48 hours -Urine Cultures Negative #Diabetes Mellitus Type II, Insulin dependent #Hyperglycemia Past medical history of diabetes mellitus, poorly controlled despite Sliding scale. Patient would likely benefit from long acting insulin. A1c (12/30/2024) 7.7 Plan -Glargine 12 units qday -Sliding Scale -Monitor Fasting Glucose -Consider carb consisten low diet #Microcytic Anemia Likely in he setting of iron deficiency anemia. No carl blood loss reported vs chronic inflammation secondary to diabetes mellitus. 10 hgb 11.3 hct 36.4 Iron Panel: Iron 24, TIBC 265, Iron Saturation 9 (L), Unsat Iron Binding 241, Ferritin 67 Plan -Consider Folic and Thiamine -continue to monitor hgb >7 #MARK Consider Cpap at night #BPH -Resume home Tamsulosin #History of Seizures Health Maintenance: Disp: Pt is currently admitted to floors for further management of CHF and cellulitis, cardiology consulted for history of A fib and PVCs. FEN: Cardiac Diet, consider carb consistent low DVT: Rivaroxaban Code: Full Code - The patient's plan was discussed with attending Dr. Amy Yates MD PGY1 Internal Medicine Attending Provider Attestation/Addendum I have personally seen and examined the patient separately on the above date of service and discussed the plan of care with the resident. I reviewed the resident Dr. Amy Yates consultation progress note and agree with the resident findings and plan in the note above and have also edited the documentation to reflect my findings and plan. Nacho Yoon M.D. Interventional Cardiology
[2025-01-04] MEDS: INSULIN LISPRO (AdmeLOG) 1 UNIT/0.01 ML UNIT SC ×2 (07:39→12:18)
--- NOTE | 2025-01-04 08:06 | PC.NURSE ---
Asked patient about their home meds. Patient said he is unsure of what meds he is taking. He stated he hasn't had meds fill at the pharmacy for sometime so he is just taking old meds that he has at home and he isn't sure if he should even be taking them. Unable to recall names and dosages of medications. Doesn't have anyone to bring them in for clarification.
[2025-01-04] MEDS: INSULIN GLARGINE (Lantus) 5 UNIT/0.05 ML (PER 5 UNITS) 12 UNIT SC (08:27)
[2025-01-04] MEDS: TAMSULOSIN HCL 0.4 MG CAPSULE PO (08:28)
[2025-01-04] MEDS: DOCUSATE SOD 100 MG CAPSULE PO (08:30)
[2025-01-04] MEDS: DAPAGLIFLOZIN PROPANEDIOL 5 MG TABLET 10 MG PO (08:30)
[2025-01-04] MEDS: SENNA TABLET 2 TAB PO (08:31)
[2025-01-04] MEDS: BUMETANIDE 0.5 MG TABLET 1 MG PO ×2 (08:31→12:07)
[2025-01-04] MEDS: ASPIRIN EC 81 MG TABEC PO (08:31)
[2025-01-04] MEDS: METOPROLOL SUCCINATE XL 25 MG TABCR PO (08:34)
[2025-01-04] MEDS: BALSAM PERU/CASTOR OIL (Venelex) 60 GM TUBE TOP (08:35)
[2025-01-04] MEDS: risperiDONE 1 MG TABLET 3 MG PO (09:40)
--- NOTE | 2025-01-04 11:23 | PD.RESDS ---
Planned Discharge Date 01/04/25 DS: Providers Provider Date of admission: 12/30/24 01:05 Primary care physician: Joe Sorenson MD Admitting Provider: Jaz Reyez DO Attending Provider on Admission: Todd Kidd MD Consults: 12/30/24 01:30 Referral OP Wound Healing Dept Stat Comment: Referral Wound Care Stat Comment: 12/30/24 09:29 Consult to Cardiology Routine Comment: Slow afib, bradycardia 40s Consulting Provider: Nacho Yoon 01/01/25 08:50 Referral Physical Therapy Routine Comment: Physician Instructions: Attending Provider on DC: Todd Kidd MD Discharging Provider: Todd Kidd MD Anticipated date of discharge: 01/04/25 DS: Diagnosis Problem List Completed Was Problem List Reviewed/Reconciled?: Yes Hospital Course Hospital Course Hospital course: Hospital course: Mr. Bella is a 64-year-old male with past medical history of heart failure with preserved ejection fraction, EF 50%, atrial fibrillation (on Xarelto), coronary artery disease, chronic kidney disease, hypertension, hyperlipidemia, diabetes mellitus, benign prostate hypertrophy and seizure disorder who presented to [facility] emergency department with a chief complaint of bilateral lower extremity edema. Patient was referred to the hospital for further workup, patient was started on IV diuresis, cardiology was consulted, patient was started on p.o. antibiotics due to suspicion of underlying cellulitis, Wound care was consulted. During the hospitalization course patient had an abnormal arterial duplex scan, was noted to be bradycardic at times though patient rhythm was atrial fibrillation, patient's diltiazem was discontinued and patient was switched to metoprolol per cardiology recommendations. Patient's renal function and edema improved with the progression of hospital course on IV diuresis, further plan is to discharge patient to senior living facility per physical therapy recommendation for wound care and PT. Patient is stable for discharge. Discharge diagnosis: #Bilateral lower extremity edema, anasarca secondary to #Acute decompensated heart failure, HFpEF EF 50% #SIRS positive #Bilateral lower extremity cellulitis #Abnormal arterial duplex #Atrial fibrillation, with slow ventricular response #ARIANA on CKD, likely cardiorenal syndrome #Hypertension #Hyperlipidemia #Coronary artery disease #BPH #Iron deficiency anemia #History of seizure disorder Case discussed with Attending Dr. Kidd. Ju Saez PGY1 Disclaimer: This note was dictated by speech recognition. Minor errors in peeled potato inspector may be present due to voice recognition software. Time Spent with Patient Time attestation: Total time spent providing and/or coordinating discharge services: Time spent: Greater than 30 minutes Exam Vital Signs Temp Pulse Resp BP Pulse Ox O2 Del Method FiO2 96.6 F L 46 L 18 150/64 H 95 BiPAP 28 01/04/25 08:00 01/04/25 08:34 01/04/25 08:00 01/04/25 08:34 01/04/25 08:00 01/04/25 08:00 01/04/25 02:32 Narrative Exam General Appearance: Alert & Oriented X3, obese male who is lying in bed in no acute distress. Statis dermatitis noted bilaterally. HEENT: Skull symmetrical and atraumatic. Conjunctivae pale pink and moist. Pupils equal, round, reactive to light and accommodation (PERRL). External ear without lesion or discharge. Straight, nares patient, mucosa pink, no discharge. Cardio: Normal Rate and Rhythm with S1 and S2 heart sounds. Systolic Murmur over mitral region. No bruits on carotid auscultation. Peripheral edema noted, 2+ Lungs: Symmetric with good expansion. Chest and back non-tender. Breath sounds vesicular without crackles, wheezing or rhonchi Abdomen: Non-tender, Non-distended, Normal Reactive Bowel Sounds Neuro: Alert, cooperative, oriented to person, place, and time. Speech clear. CN grossly intact. Upper motor strength 5/5 and Lower motor strength 5/5. Sensation intact. Discharge Plan Plan Patient Disposition: Xfer Skilled Nsg Fac (SNF) Patient condition on transfer: Stable Prescriptions/Referrals Prescriptions/Med Rec: New aspirin 81 mg Tablet,Delayed Release (Dr/Ec) 81 mg PO QDAY 30 Days Qty: 0 3RF cephalexin 500 mg capsule 500 mg PO QID 5 Days Qty: 0 0RF dapagliflozin propanediol 10 mg tablet 10 mg PO QAM 30 Days Qty: 0 3RF insulin glargine [Lantus U-100 Insulin] 100 unit/mL Solution 12 unit SCi QDAY 30 Days Qty: 0 0RF docusate sodium 100 mg Capsule 100 mg PO QDAY 30 Days Qty: 30 3RF tamsulosin 0.4 mg Capsule 0.4 mg PO QDAY 30 Days Qty: 30 0RF metoprolol succinate 25 mg Tablet Extended Release 24 Hr 25 mg PO QDAY 30 Days Qty: 30 3RF Xarelto 10 mg Tablet 20 mg PO QDAY 30 Days Qty: 60 0RF risperidone 3 mg tablet 3 mg PO QDAY Qty: 30 0RF mirtazapine 45 mg tablet 45 mg PO HS Qty: 30 0RF paroxetine HCl 20 mg tablet 20 mg PO HS Qty: 30 0RF bumetanide 2 mg tablet 2 mg PO QDAY Qty: 30 0RF Discontinued mirtazapine 45 mg tablet 45 mg PO HS Qty: 30 0RF paroxetine HCl 20 mg tablet 20 mg PO HS Qty: 30 0RF Rx Instructions: Hold this medicine if patient notice signs of confusion, hallucination, seizure, extreme changes in blood pressure, increased heart rate, fever, excessive sweating, shivering or shaking, blurred vision for risk of serotonin syndrome in combination with mirtazapine risperidone [Risperdal] 3 mg tablet 3 mg PO QDAY tamsulosin 0.4 mg capsule 0.4 mg PO HS Benadryl 2 % gel 1 applic topical BID Qty: 103 0RF Rx Instructions: Apply to area as needed. Eliquis Patient Comments: does not remember dose Referrals: Ju Saez MD [Resident] - Joe Sorenson MD [Primary Care Provider] - Patient/Caregiver Discharge Instructions Discharge Activity: as per physical therapy Other Discharge Activity Instructions:: Start Bumex 2 mg daily for heart failure with preserved ejection fraction, started on dapagliflozin as GDMT. Optimize therapy outpatient. Start metoprolol succinate 25 mg daily for atrial fibrillation, continue Xarelto 20 mg daily for anticoagulation due to A-fib. Take Keflex 500 mg 4 times a day for 5 days to complete course for cellulitis. Take Lantus 12 units at bedtime and dapagliflozin for diabetes management. Optimize therapy outpatient. Continue tamsulosin for BPH. Follow wound care instructions as below. Follow-up outpatient with bilingual spanish inbound sales in 1 week for repeat renal panel. Follow-up with primary care physician outpatient and obtain referral for cardiology. If you do not have a primary care physician, you can follow-up in [facility] in 1 to 2 weeks. Call [phone] to make an appointment Address: [facility], [address], [address], [place], [address] Return to ED if symptoms return or worsen. 1) Wound care: Venous ulcers to top of right dorsal foot,right lateral lower extremity, left dorsal foot, left lateral lower leg: cleanse with wound cleanser, pat dry, apply silvasorb to wound bed. Layer with adaptic, abd pad and kerlix roll. Apply marissa or bias roll from tips of toes to below the knees. Change daily and PRN 2) Once discharged from Rehab, please call [facility] to help with wound healing to your legs. Call [phone] for appointment. Other Discharge Diet Instructions: Cardiac diet, low-sodium diet, fluid restriction less than 2 L Education Materials: Coping with Heart Failure, ED Cellulitis, ED Leg Swelling in Both Legs, Heart Failure Print Language: Polish Stand Alone Forms: Naida Award Info., Patient Portal Info Letter Discharge Order Discharge Orders: Discharge (Routine); Ordered 01/04/25 Ordered By: Ju Saez Quality Discharge Quality Measures VTE prophylaxis Attestestation MD Attestation I attest that I was physically present for the evaluation, physical examination, lab and imaging review of the patient with the residents. I discussed the case with the residents and agree with the findings and plans of care as documented above. Todd Kidd MD
--- NOTE | 2025-01-04 11:31 | PC.SS ---
SS spoke to Breanna from [facility] to confirm they can accept pt today. has called [employer] [employer] [phone] and spoke to Sam to setup gurney transportation with 3 liters of O2 and request [facility]. Ref# [id number]. has sent patient's facesheet and ambulance form to [facility] using [employer]. SS requested 12pm transport time. has called and spoken to Ida from [facility] and transport time is set for 12pm to [facility]. SNF packet has been prepared. Pt is alert/oriented. Pt is aware. Bedside nurse, Nai is aware. Abdulkadir GUEVARA is aware. Breanna from [facility] is aware.
== END 2025-01-04 12:40 | disposition skilled nursing facility (03) | DRG 602 ==
LOC: SERX 12-30 00:17 → SERHOLD 12-30 01:32 → S2NX 12-30 04:19
PROVIDERS: Student in an Organized Health Care Education/Training Program; Admitting Provider Internal Medicine; Emergency Provider Emergency Medicine; PCP Family Medicine; Visit Provider Student in an Organized Health Care Education/Training Program
DX: L03.115 Cellulitis of right lower limb (principal); I50.33 Acute on chronic diastolic (congestive) heart failure; I13.0 Hypertensive heart and chronic kidney disease with heart failure and stage 1 through stage 4 chronic kidney disease, or unspecified chronic kidney disease; N17.9 Acute kidney failure, unspecified; I42.9 Cardiomyopathy, unspecified; L03.116 Cellulitis of left lower limb; G40.909 Epilepsy, unspecified, not intractable, without status epilepticus; E78.5 Hyperlipidemia, unspecified; Z99.2 Dependence on renal dialysis; J44.9 Chronic obstructive pulmonary disease, unspecified; I25.10 Atherosclerotic heart disease of native coronary artery without angina pectoris; E11.22 Type 2 diabetes mellitus with diabetic chronic kidney disease; N18.32 Chronic kidney disease, stage 3b; N40.0 Benign prostatic hyperplasia without lower urinary tract symptoms; Z68.38 Body mass index [BMI] 38.0-38.9, adult; E66.01 Morbid (severe) obesity due to excess calories; I48.0 Paroxysmal atrial fibrillation; Z79.4 Long term (current) use of insulin; E11.65 Type 2 diabetes mellitus with hyperglycemia; D50.9 Iron deficiency anemia, unspecified; G47.33 Obstructive sleep apnea (adult) (pediatric); I87.2 Venous insufficiency (chronic) (peripheral); E87.5 Hyperkalemia; E86.0 Dehydration; Z74.01 Bed confinement status; Z79.01 Long term (current) use of anticoagulants; Z79.82 Long term (current) use of aspirin; Z79.899 Other long term (current) drug therapy; Z86.14 Personal history of Methicillin resistant Staphylococcus aureus infection; Z87.891 Personal history of nicotine dependence; I49.3 Ventricular premature depolarization; R00.1 Bradycardia, unspecified; Z88.8 Allergy status to other drugs, medicaments and biological substances; Z88.2 Allergy status to sulfonamides
CPT/HCPCS: 36415; 71045; 80053; 81001; 82728; 83036; 83540; 83550; 83605; 83735; 84100; 84145; 84443; 84484; 85025; 85610; 85730; 87040; 87081; 87086; 93005; 93925; 93970; 94660; 94762; 96365; 96367; 96375; 97162; 99291; J0131; J1815; J1885; J2270; J2543; J3475; J3490; J8499; A9270

== ENCOUNTER 2025-04-09 10:40 | Emergency (ER) | payer MEDICARE, MEDICAID, SELFPAY ==
[2025-04-09] VITALS (16 sets, daily range): BP systolic 133–158; BP diastolic 54–77; PULSE 33–58; RESP 12–18; TEMP 36.8–37.4; O2SAT 95–99; BMI 41.1
--- NOTE | 2025-04-09 10:49 | EKG_ITS ---
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
--- NOTE | 2025-04-09 10:53 | EDNOTE_ITS ---
ED Arrhythmia Palp. RME/HPI General Chief Complaint: Arrhythmia/Palpitations Stated Complaint: LOW HEART RATE Time Seen by Provider: 04/09/25 10:50 Arrival date/time: 04/09/25 10:40 RME / HPI RME / HPI narrative: DR. PUENTE MAIN ED EVALUATION: 64-year-old male with past medical history of hypertension, diabetes mellitus, heart failure with preserved ejection fraction, coronary artery disease, COPD, atrial fibrillation, seizures, and hyperlipidemia presents to the Emergency Department [facility] from [facility] for evaluation of low heart rate/bradycardia. Patient was noted to be dizzy earlier around 10 AM, but symptoms resolved, and he is currently asymptomatic. No chest pain, shortness of breath, syncope, nausea, vomiting, or diarrhea. No fevers or chills. No cough or congestion. He is on metoprolol. School Occupational Therapist is Dr. Yoon. Related Data Home Medications ?Medication ?Instructions ?Recorded ?Confirmed rivaroxaban 20 mg tablet (Xarelto) 20 mg PO QDAY 04/0904/09/25 tamsulosin 0.4 mg capsule 0.4 mg PO Q24H 04/09/2503/28 Previous Rx's ?Medication ?Instructions ?Recorded aspirin 81 mg tablet,delayed 81 mg PO QDAY 30 days #0 tabs 01/04/25 release bumetanide 2 mg tablet 2 mg PO QDAY #30 tabs dapagliflozin propanediol 10 mg 10 mg PO QAM 30 days # 0 tabs 01/04/25 tablet docusate sodium 100 mg capsule 100 mg PO QDAY 30 days #30 caps 01/04/25 metoprolol succinate 25 mg 25 mg PO QDAY 30 days #30 t abs 01/04/25 tablet,extended release 24 hr mirtazapine 45 mg tablet 45 mg PO HS #30 tabs 5 paroxetine HCl 20 mg tablet 20 mg PO HS #30 tabs 01/04 risperidone 3 mg tablet 3 mg PO QDAY #30 tabs Allergies Allergy/AdvReac Type Severity Reaction Status Date / Time atorvastatin Allergy Verified 08/09/24 13:49 lisinopril Allergy Verified 08/09/24 13:49 sulfamethoxazole (From Allergy Verified 08/09/24 13:49 Bactrim) trimethoprim (From Bactrim) Allergy Verified 08/09/24 13:49 Review of Systems Review of Systems Systems Reviewed: All systems reviewed, normal except as documented Past Medical History Past Medical History NEUROLOGIC: Positive Seizures CARDIAC: Positive Cardiac Disorders, Hypercholesterolemia, Congestive Heart Failure and Hypertension RESPIRATORY: Positive Chronic Obstructive Pulmonary Disease (COPD) GASTROINTESTINAL: Positive Gastrointestinal Disorders ENDOCRINE: Positive Diabetes Mellitus Type 2 Surgical History SURGICAL: Positive Tonsillectomy and Joint Replacement Social History SMOKING STATUS: Former smoker SUBSTANCE USE: does not use ALCOHOL: Current ED Exam Narrative Physical exam: GENERAL APPEARANCE: alert and oriented x 4, well-developed, well-nourished, no acute distress VITALS: All vitals were reviewed and the pulse ox is 95% on room air, which is normal according to my interpretation. HEENT: Normocephalic, atraumatic; pupils equal, round, reactive to light; EOMI; mucous membranes pink, moist; oropharynx clear NECK: Supple LUNGS: CTABL; no wheezes, no rales, no rhonchi HEART: Bradycardia, atrial fibrillation with slow ventricular response; no murmurs ABDOMEN: non distended; normal BS; soft, no tenderness, no guarding, no rebound; no masses, no organomegaly, no hernia BACK: no CVA tenderness EXTREMITIES: there are chronic venous stasis changes of lower extremities with some wounds with dressings that are plain and dry. NEUROLOGIC: awake; alert and oriented x4; cranial nerves II-XII grossly intact; no focal sensory or motor deficits PSYCHIATRIC: appropriate mood and affect SKIN: warm, dry, no rashes, see extremities exam Course Quality Measures none Orders Category Date Time Status In Store Marketing Associate NOW Care 04/09/25 10:51 Active EKG (ED ONLY) *Do not use* NOW Care 04/09/25 10:50 Active EKG (ED Only) Stat Exams 04/09/25 10:49 Draft XR chest 1V portable Stat Exams 04/09/25 10:51 Ordered B-Type Natriuretic Peptide Stat Lab 04/09/25 10:51 Ordered CBC Stat Lab 04/09/25 10:51 Ordered Comprehensive Metabolic Panel Stat Lab 04/09/25 10:51 Ordered Magnesium Stat Lab 04/09/25 10:51 Ordered Partial Thromboplastin Time Stat Lab 04/09/25 10:51 Ordered Prothrombin Time with INR Stat Lab 04/09/25 10:51 Ordered Troponin I Stat Lab 04/09/25 10:51 Ordered Arrhythmia/Palpitations MDM Narrative MDM Narrative:: 64-year-old male with past medical history of hypertension, diabetes mellitus, HFpEF, CAD, COPD, atrial fibrillation, seizures, and hyperlipidemia with chief complaint of bradycardia, currently asymptomatic. Patient had transient dizziness earlier, now resolved. He is on metoprolol. School Occupational Therapist is Dr. Yoon. On exam, bradycardia is present with otherwise stable vitals and chronic venous stasis changes of lower extremities. Initial workup will include EKG, cardiac enzymes, basic labs, and CXR. Continuous cardiac monitoring is initiated and cardiology will be consulted regarding medication adjustment. Discussed the case with his otr hazmat company driver Dr. Yoon, recommends discharge. Patient discharged with bradycardia and atrial fibrillation with slow ventricular response. Emily Lopez am scribing for and in the presence of Dr. Puente. Patient data External records reviewed:: [facility] previous records and EMS form Clinical information provided by:: patient and EMS Social determinants that could affect healthcare access:: housing ([facility]) Patient has the following chronic illnesses:: hypertension, diabetes mellitus, heart failure with preserved ejection fraction, coronary artery disease, COPD, atrial fibrillation, seizures, and hyperlipidemia How is presenting disease/condition affected by chronic disease/condition?: exacerbated by Evaluation data The following diagnostics were reviewed and interpreted by me:: lab results, radiology exam(s) and EKG tracing(s) (My interpretation: EKG performed at 1048 hours, atrial fibrillation with slow ventricular response, rate 36, no acute ischemic changes, unchanged from EKG done on 01/05/2025) Lab and/or radiology exams considered but not ordered:: none Interpretation Summary: See MDM narrative above. RADIOLOGY Procedure(s): XR chest 1V portable Accession Number(s): [id number] cc: Keshav Yap MD; Shaina Puente MD~ Examination: AP chest single view Technique one AP portable semiupright chest single view Date and time: April 09, 2020 5:11 AM, comparison December 29, 2024 Indications: Chest pain difficulty breathing today. Findings: Mild prominence left ventricle No pneumonia or pulmonary edema Prominent central pulmonary arteries Moderate osteopenia Impression: Mild enlargement cardiac contour Suspicious for pulmonary artery hypertension No pneumonia or pulmonary edema Dictated By: Keshav Yap MD Medications / Prescriptions Medications or Prescriptions considered but not ordered:: none Medication administrations:: see above if any Consultations Consultation(s) initiated? (list below): Yes Consultation #1 (Physician, Specialty, Details): Called his otr hazmat company driver Dr. Yoon. He will review the chart and will call back. Time: 13:01 Consultation #2 (Physician, Specialty, Details): Discussed test HPI, PMHx, lab, radiology results and/or management with his otr hazmat company driver Dr. Yoon. Recommend the patient to be discharged. Time: 15:50 Diagnosis Differential diagnosis arrhythmia/palpitations: other (Differential diagnoses include medication-induced bradycardia, sick sinus syndrome, high-grade AV block, metabolic or electrolyte disturbance, and less likely acute coronary syndrome.) Most likely diagnosis given after review of the tests above:: Bradycardia Atrial fibrillation with slow ventricular response Admission Indicated Admission indicated?: not indicated Admission Request Was there a request for admission?: No Disposition Plan Disposition Plan: Discharge Discharge Attestation Discharge Attestation: The patient and all family members were given an opportunity to ask questions and understood the discharge instructions. Discharge instructions specifically effects, indications for sooner follow up or return to the emergency department, and the expected course of current diagnosis. Patient condition: Stable Discharge Plan Plan Patient Disposition: HOME (Self Care) Prescriptions/Referrals Prescriptions/Med Rec: No Action aspirin 81 mg Tablet,Delayed Release (Dr/Ec) 81 mg PO QDAY 30 Days Qty: 0 3RF dapagliflozin propanediol 10 mg tablet 10 mg PO QAM 30 Days Qty: 0 3RF docusate sodium 100 mg Capsule 100 mg PO QDAY 30 Days Qty: 30 3RF metoprolol succinate 25 mg Tablet Extended Release 24 Hr 25 mg PO QDAY 30 Days Qty: 30 3RF risperidone 3 mg tablet 3 mg PO QDAY Qty: 30 0RF mirtazapine 45 mg tablet 45 mg PO HS Qty: 30 0RF paroxetine HCl 20 mg tablet 20 mg PO HS Qty: 30 0RF bumetanide 2 mg tablet 2 mg PO QDAY Qty: 30 0RF tamsulosin 0.4 mg capsule 0.4 mg PO Q24H Xarelto 20 mg tablet 20 mg PO QDAY Rx Instructions: must administer with evening meal Referrals: Nacho Yoon MD [Physician, Cardiology] Johnnie Yousif MD [Primary Care Provider] - In 1 week Problem List Clinical Impression: Bradycardia, Atrial fibrillation with slow ventricular response Patient/Caregiver Discharge Instructions Education Materials: ED Bradycardia Additional Instructions: Discontinue metoprolol. Follow up with Dr. Yoon. Call office for appointment. Print Language: Austrian Stand Alone Forms: [employer] Award Info., Patient Portal Info Letter
[2025-04-09 11:17] LABS: Basophils # (Auto) 0.1 Thou/mm3 (0.0-0.2); Basophils % (Auto) 1 % (0-2.5); Eosinophils # (Auto) 0.3 Thou/mm3 (0.0-0.5); Eosinophils % (Auto) 4 % (0-10); Hematocrit 43.7 % (41.0-53.0); Hemoglobin 14.2 g/dL (13.5-16.0); Immature Granulocytes Auto 0.02 Thou/mm3 (0.00-0.00); Lymphocytes # (Auto) 1.8 Thou/mm3 (1.0-4.8); Lymphocytes % (Auto) 23 % (10-50); Mean Corpuscular HGB Conc 32.5 g/dl (31.0-37.0); Mean Corpuscular Hemoglobin 28.0 pg (25.0-35.0); Mean Corpuscular Volume 86 fL (80-100); Monocytes # (Auto) 0.6 Thou/mm3 (0.0-0.8); Monocytes % (Auto) 7 % (0-12); Neutrophils # (Auto) 5.3 Thou/mm3 (1.8-7.7); Neutrophils % (Auto) 66 % (37-80); Nucleated Red Blood Cell # 0.00 Thou/mm3 (0.00-0.00); Nucleated Red Blood Cell % 0 /100 WBC (0); Platelet Count 213 Thou/mm3 (140-440); RDW Standard Deviation 45.7 fL (35.1-43.9); Red Blood Count 5.07 Miln/mm3 (4.50-5.90); White Blood Count 8.0 Thou/mm3 (3.8-10.6)
[2025-04-09 11:34] LABS: INR 1.2 (0.9-1.3); Partial Thromboplastin Time 30.5 Seconds (22.0-36.0); Prothrombin Time 12.7 Seconds (9.0-12.2)
[2025-04-09 11:35] LABS: B-Type Natriuretic Peptide 301 pg/mL (0-100)
[2025-04-09 11:37] LABS: Alanine Aminotransferase 17 U/L (10-49); Albumin, Serum 3.8 gm/dL (3.4-4.8); Albumin/Globulin Ratio 1.2 (1.2-2.2); Alkaline Phosphatase 62 U/L (46-116); Anion Gap 9 (7-16); Aspartate Amino Transferase 17 U/L (0-34); BUN/Creatinine Ratio 21 Ratio (12-20); Bilirubin,Total 0.7 mg/dL (0.3-1.2); Blood Urea Nitrogen 34 mg/dL (9-23); Calcium 9.3 mg/dL (8.3-10.6); Calcium (Corrected) 9.5 mg/dL (8.5-10.1); Carbon Dioxide 30.2 mMol/L (20.0-31.0); Chloride 96 mMol/L (98-107); Creatinine (Component) 1.6 mg/dL (0.6-1.3); Estimated Creatinine Clearance 70.8 mL/min (>60); Globulin 3.3 gm/dL (2.3-3.5); Glucose 285 mg/dL (74-106); Magnesium 2.3 mg/dL (1.6-2.6); Osmolality,Calculated 287 (275-295); Potassium 4.0 mMol/L (3.4-5.1); Sodium 135 mMol/L (136-145); Total Protein 7.1 gm/dL (5.7-8.2); Troponin I 0.030 ng/mL (0.0-0.045); eGFR 48 See Note
--- NOTE | 2025-04-09 15:33 | PD.RESCONSUL ---
HPI Data of Consult Primary Care Provider: Johnnie Yousif MD Consult Narrative Reason for consult: Symptomatic Bradycardia History of present illness: Andrew Bella 64M pmhx significant for essential hypertension, hyperlipidemia, CAD, IDDM2, CHF 55-60% (11/12/2024), paroxysmal atrial fibrillation, history of bradycardia and PVCs, history of seizures. obesity, and history of MRSA bacteremia who presents with asymptomatic bradycardia. Patient lives at [facility] and was noted to have heart rate of 35 and is taking metoprolol XL 25 mg for atrial fibrillation. Patient reports at the time his heart rate was taken and he was not symptomatic, denied lightheadedness, dizziness, syncope, or presyncope at the time. However a few minutes after his heart rate was taken, he felt dizzy while he was laying down for less than a minute which resolved on its own without medication or fluids. Reports heart rate at custodial ranges from 40s to 60s and has never been as low as 30s. Upon arrival to ED, patient remained asymptomatic, denies lightheadedness, dizziness, presyncope or palpitations. EKG showed coarse atrial fibrillation rate of 36. Patient denies recent illness, nausea vomiting, diarrhea, chest pain or shortness of breath. Patient is at [facility] for leg wounds. PMHx: as above Surgical Hx: appendectomy, tonsillectomy, cervical disc repair Social Hx: 40 pack year, quit smoking ~15 years ago, denies alcohol or recreational/illict drug use Allergies: atorvastatin, lisinopril, Bactrim Medications: per med rec In ED, BP 155/77, HR 37, afebrile satting 97% on RA, Hgb 14.2, Na 135, K 4.0, bicarb 30.2, BUN 34, Cr 1.6, glucose 285, Ca 9.5, BNP 301, trops 0.030 . EKG showed coarse atrial fibrillation rate of 36 ATc 409. CXR shows mild enlargement cardiac contour, suspicious for pulmonary hypertension, no pneumonia or pulmonary edema. cc:: cc: Exam Vital Signs Temp Pulse Resp BP Pulse Ox O2 Del Method 98.6 F 58 L 15 158/70 H 96 Room Air 04/09/25 14:17 04/09/25 15:00 04/09/25 15:00 04/09/25 15:00 04/09/25 15:00 04/09/25 14:17 Narrative Exam GENERAL: AOx3, no acute distress, sitting upright comfortably HEENT: NC/AT, mucous membranes moist, bilateral sclera anicteric CARDIOVASCULAR: bradycardic, regular rhythm, S1/S2 present, no murmurs appreciated PULMONARY: clear to auscultation bilaterally, no rales/rhonchi/wheezes ABDOMINAL: soft, non-tender, non-distended, no rebound/guarding, bowel sounds present EXTREMITIES: 1+ BLE pitting edema, RLE wrapped due to venous ulcers, LLE 2x2 cm bandaged ulcer above medial malleolus SKIN: warm and dry, BLE venous stasis dermatitis NEURO: CN II-XII grossly intact, no focal deficits, alert, following commands Results Labs 04/09/25 11:01 04/09/25 11:01 Labs: Short CBC 04/09/25 Range/Units 11:01 WBC 8.0 (3.8-10.6) Thou/mm3 Hgb 14.2 (13.5-16.0) g/dL Hct 43.7 (41.0-53.0) % Plt Count 213 (140-440) Thou/mm3 BMP 04/09/25 11:01 Sodium 135 L Potassium 4.0 Chloride 96 L Carbon Dioxide 30.2 BUN 34 H Creatinine 1.6 H Glucose 285 H Calcium 9.3 Cardiac Enzymes 04/09/25 Range/Units 11:01 Troponin I 0.030 (0.0-0.045) ng/mL Liver Function 04/09/25 Range/Units 11:01 Total Bilirubin 0.7 (0.3-1.2) mg/dL AST 17 (0-34) U/L ALT 17 (10-49) U/L Alkaline Phosphatase 62 (46-116) U/L Albumin 3.8 (3.4-4.8) gm/dL Quality Measures Quality Measures none Medications Home Medications and Allergies Home Medications ?Medication ?Instructions ?Recorded ?Confirmed ?Type rivaroxaban 20 mg tablet (Xarelto) 20 mg PO QDAY 04/09/25 04/09/25 History tamsulosin 0.4 mg capsule 0.4 mg PO Q24H 04/09/25 04/09/25 History Allergies Allergy/AdvReac Type Severity Reaction Status Date / Time atorvastatin Allergy Verified 08/09/24 13:49 lisinopril Allergy Verified 08/09/24 13:49 sulfamethoxazole (From Allergy Verified 08/09/24 13:49 Bactrim) trimethoprim (From Bactrim) Allergy Verified 08/09/24 13:49 Assessment & Plan Plan Andrew Bella 64M pmhx significant for essential hypertension, hyperlipidemia, CAD, IDDM2, CHF 55-60% (11/12/2024), paroxysmal atrial fibrillation, history of bradycardia and PVCs, history of seizures. morbid obesity, and history of MRSA bacteremia who presents with asymptomatic bradycardia. #Asymptomatic bradycardia #Paroxysmal atrial fibrillation on metoprolol XL 25 mg QD #Hx of PVCs #Hx of bradycardia Patient presented with heart rate of 36. Baseline HR per patient 40 to 60s. Previous admissions, patient has a history of asymptomatic bradycardia. BNP 301. EKG showed coarse atrial fibrillation rate of 36, no PVCs noted on telemetry. Patient's current episode of bradycardia likely secondary to baseline bradycardia with metoprolol. At this time, patient is asymptomatic and doing well. Denies any complaints such as lightheadedness, dizziness, palpitations, presyncope or shortness of breath. 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 #Diastolic HFpEF (55-60% 10/2024), NYHA II #CAD #IDDM2 #HLD #HTN Patient has a history of diastolic HFpEF (EF 55 to 60% 10/2024), NYHA class II. Patient does not seem to be in acute heart failure exacerbation, saturating well on room air and no increased leg edema. Currently denies chest pain, chest pressure or shortness of breath. Plan: - Continue home Bumex 2 mg daily, Farxiga 10 mg daily, Xarelto 20 mg daily, and aspirin 81 mg daily - Continue home insulin regimen - CTM vitals closely - Continue to follow up outpatient with cardiology for further monitoring Plan of care discussed with attending Dr. Yoon, public school teacher Liliam Angel, DO PGY-1 Internal Medicine Attending Provider Attestation/Addendum I have personally seen and examined the patient separately on the above date of service and discussed the plan of care with the resident. I reviewed the resident Dr. Liliam Angel consultation progress note and agree with the resident findings and plan in the note above and have also edited the documentation to reflect my findings and plan. Patient known to me from previous admissions from July 2024 and as well as December 2024. Patient did follow-up with me only once after the July admission and since then has not been following up with me in the office as he has been in the rehab. During the admission in July 2024 patient did have atrial fibrillation with RVR and was started on Cardizem CD 120 mg once daily and for rate control and was discharged on the same dose. He did have a couple of admissions in between but the last admission patient did develop atrial fibrillation with slow ventricular rate and diltiazem was discontinued but patient continued to have bigeminy rhythm and hence patient was started on metoprolol XL 25 mg once daily and he tolerated it well. His heart rate was around 50's most of the time he is mostly bradycardic. Patient has been doing well for the last 3 months since his discharge in December 2024 but no presented with low heart rate or bradycardia noted by the rehab or long-term assisted living. Patient is completely asymptomatic at the present point of time and EKG does show coarse atrial fibrillation with low heart rate. Heart rate is in the high 30s as well as low 40s. His blood pressure appears to be stable at greater than 140 mmHg. EKG, labs and chest x-ray everything reviewed and patient is doing well without any major complaints. Recommend to completely stop the metoprolol XL 25 mg for now the patient is bradycardic. Inform custodial staff that metoprolol XL epic from the last for another 24 to 48 hours. If the heart rate is not well-controlled and continue to have any atrial fibrillation with RVR episodes then patient can be diagnosed with tachycardia-bradycardia syndrome which will need a pacemaker at that point of time. Patient at the present moment does not require any kind of pacemaker either temporary or permanent as he is hemodynamically stable. Can be discharged to the custodial or assisted living and continue to monitor vitals including heart rate and blood pressure closely He is probably over diuresed a little bit but recommend to continue with diuresis with the same dose of Bumex 2 mg once daily. Continue to monitor weights and input output accurately. Recommended strict fluid restriction less than 1.8 L/day. Management of rest of the medical conditions as per primary team and other consultants. Thank you for the consult and allowing me to participate in the care of the patient. Cardiology will continue to follow. Nacho Yoon M.D. Interventional Cardiology
== END 2025-04-09 18:51 | disposition home or self-care (01) ==
PROVIDERS: Emergency Provider Emergency Medicine; PCP Hospitalist
DX: R00.1 Bradycardia, unspecified (principal); I48.0 Paroxysmal atrial fibrillation; E11.9 Type 2 diabetes mellitus without complications; I11.0 Hypertensive heart disease with heart failure; I50.32 Chronic diastolic (congestive) heart failure; J44.9 Chronic obstructive pulmonary disease, unspecified; I25.10 Atherosclerotic heart disease of native coronary artery without angina pectoris; E78.5 Hyperlipidemia, unspecified
CPT/HCPCS: 36415; 71045; 80053; 83735; 83880; 84484; 85025; 85610; 85730; 93005; 99283